=== PATIENT | female | born 2000 | race Caucasian/White ===

== ENCOUNTER 2022-01-23 15:05 | Emergency (ER) | payer OTHER, SELFPAY ==
[2022-01-23 16:00] VITALS: BP 124/73; PULSE 91; RESP 16; TEMP 36.3; O2SAT 100
--- NOTE | 2022-01-23 17:46 | ED.SKABFB ---
HPI - Skin/Abscess/Foreign Bdy General Chief complaint: Skin/Abscess/Foreign Body Stated complaint: abd abcess Time Seen by Provider: 01/23/22 17:22 History of Present Illness HPI narrative: 21-year-old female presents to the emergency room for evaluation of painful area on her right lower abdomen. Patient is a type II diabetic and recently been giving herself insulin injections. Patient states she developed some redness and swelling at the injection site on her abdomen. 3 days ago noticed purulent drainage, and the erythematous area grew in size. Related Data Allergies Allergy/AdvReac Type Severity Reaction Status Date / Time morphine Allergy Hives Verified 01/23/22 16:00 Review of Systems Review of Systems: CONSTITUTIONAL: Denies fever, chills, or sweats. EYES: Denies visual changes, redness, or discharge. ENT: Denies rhinorrhea, congestion, sore throat, or otalgia. CARDIOVASCULAR: Denies chest pain, palpitations, or edema. RESPIRATORY: Denies cough or dyspnea. GASTROINTESTINAL: Denies abdominal pain, nausea, vomiting, or diarrhea. GENITOURINARY: Denies dysuria or hematuria. SKIN: Reports painful area to right lower quadrant MUSCULOSKELETAL: Denies back pain, joint pain, or myalgia. NEUROLOGIC: Denies headache, numbness, dizziness, or weakness. PSYCHIATRIC: Denies anxiety or depression. Exam Narrative: GENERAL: Well-appearing, well-nourished, no physical limitations, and in no acute distress. HEAD: Normocephalic, atraumatic. EYES: Conjunctivae normal, PERRLA and EOMI. CHEST: Clear to auscultation. No respiratory distress. No wheezes rales or rhonchi. No tenderness. HEART: Regular rate and rhythm. No murmur heard. Normal peripheral pulses. ABDOMEN: Soft, nontender, nondistended, normal active bowel sounds. EXTREMITIES: Normal range of motion. No edema. No clubbing or cyanosis SKIN: Warm, dry, no rash. RLQ: Quarter size indurated area with a centralized punctum jordan's and surrounding erythema. No signs of streaking NEURO: No focal deficits. Alert and oriented x3. MAEW. CN's II-XI intact bilaterally, normal gait PSYCH: Cooperative. Normal mood and affect. Course Vital Signs Vital signs: Vital Signs Temperature 36.3 C L 01/23/22 16:00 Pulse Rate 91 01/23/22 16:00 Respiratory Rate 16 01/23/22 16:00 Blood Pressure 124/73 01/23/22 16:00 Pulse Oximetry 100 01/23/22 16:00 Oxygen Delivery Room Air 01/23/22 16:00 Temperature 36.3 C L 01/23/22 16:00 Pulse Rate 91 01/23/22 16:00 Respiratory Rate 16 01/23/22 16:00 Blood Pressure 124/73 01/23/22 16:00 Pulse Oximetry 100 01/23/22 16:00 Oxygen Delivery Room Air 01/23/22 16:00 Discharge Plan Discharge Clinical Impression: Abscess of skin or subcutaneous tissue, Cellulitis Patient Disposition: Home, Self-Care Condition: Stable Instructions: Antibiotic Form, Cellulitis (ED), Abscess (ED) Prescriptions: New cephalexin 500 mg capsule 500 mg PO Q8H 7 Days Qty: 21 0RF Follow-up/Referrals: Arnold Goldsmith MD [Physician] - Time of Disposition: 19:06
== END 2022-01-23 19:22 | disposition home or self-care (01) ==
PROVIDERS: Emergency Provider Nurse Practitioner Family; PCP Physician Assistant
DX: L02.211 Cutaneous abscess of abdominal wall (principal); L03.311 Cellulitis of abdominal wall
CPT/HCPCS: 96365; 99284; J0696

== ENCOUNTER 2022-04-30 13:16 | Emergency (ER) | payer OTHER, SELFPAY ==
[2022-04-30 13:30] VITALS: BP 134/90; PULSE 100; RESP 18; TEMP 36.8; O2SAT 100
--- NOTE | 2022-04-30 13:46 | ED.SKABFB ---
HPI - Skin/Abscess/Foreign Bdy General Chief complaint: Skin/Abscess/Foreign Body Stated complaint: lumps under bilat arms Time Seen by Provider: 04/30/22 13:38 Source: patient and RN notes reviewed Mode of arrival: ambulatory Limitations: no limitations History of Present Illness HPI narrative: 22 years old white female presents with lumps at the axillary area bilaterally started about 1 month ago, had similar symptoms in the groin area few months ago and was told that she have MRSA. Patient denies any fever, chills, nausea, vomiting. Patient is not able to shave in the last few weeks. Related Data Allergies Allergy/AdvReac Type Severity Reaction Status Date / Time morphine Allergy Hives Verified 04/30/22 13:44 Review of Systems Review of Systems: All systems reviewed & are unremarkable except as noted in HPI and below Exam Narrative: General appearance: Well-developed, well-nourished Skin: Few scattered pimples like lesion at the axillary area bilaterally, no fluctuation, no hardening, no discharge, no erythema Head: Normocephalic, nontraumatic Neck: Supple, nontender Chest and respiratory: Airway patent, no respiratory distress, no accessory muscle use Heart: Regular rate/rhythm Abdomen: Soft, nontender, no organomegaly, quiet bowel sounds Vascular: Normal peripheral pulses, normal capillary refill. Musculoskeletal: Normal range of motion, nontender back Neurologic: Alert and oriented ?3, Course Course Emergency Course: Folliculitis versus hidradenitis suppurativa is my concern Vital Signs Vital signs: Vital Signs Temperature 36.8 C 04/30/22 13:30 Pulse Rate 100 04/30/22 13:30 Respiratory Rate 18 04/30/22 13:30 Blood Pressure 134/90 04/30/22 13:30 Pulse Oximetry 100 04/30/22 13:30 Oxygen Delivery Room Air 04/30/22 13:30 Temperature 36.8 C 04/30/22 13:30 Pulse Rate 100 04/30/22 13:30 Respiratory Rate 18 04/30/22 13:30 Blood Pressure 134/90 04/30/22 13:30 Pulse Oximetry 100 04/30/22 13:30 Oxygen Delivery Room Air 04/30/22 13:30 MDM - Skin/Abscess/Foreign Bdy Differential Diagnosis Differential diagnosis: Likely other (Hidradenitis suppurativa, folliculitis) Critical Care Time Critical Care Time Critical Care Time: No Discharge Plan Discharge Clinical Impression: Axillary hidradenitis suppurativa Patient Disposition: Home, Self-Care Condition: Stable Instructions: Antibiotic Form, Hidradenitis Suppurativa (ED) Additional Instructions: Return if symptoms are worsening , call your family physician for appointment, take Tylenol as as needed for aches and pain, continue home medications. Prescriptions: New clindamycin HCl 300 mg capsule 300 mg PO Q6H Qty: 40 0RF No Action cephalexin 500 mg capsule 500 mg PO Q8H 7 Days Qty: 21 0RF Follow-up/Referrals: Sharyn,DOMINGUEZ Camacho [Non-Staff] - Stand Alone Forms: Work/School Release IP
== END 2022-04-30 15:20 | disposition home or self-care (01) ==
LOC: ANHED 14:04
PROVIDERS: Emergency Provider Emergency Medicine
DX: L73.2 Hidradenitis suppurativa (principal)
CPT/HCPCS: 99283

== ENCOUNTER 2022-07-18 09:35 | Emergency (ER) | payer OTHER, SELFPAY ==
[2022-07-18 09:54] VITALS: BP 122/70; PULSE 87; RESP 18; TEMP 36.6; O2SAT 97
--- NOTE | 2022-07-18 10:00 | ED.RECABL ---
HPI - Recheck/Abnormal Lab/Rx General Chief Complaint: Recheck/Abnormal Lab/Rx Stated Complaint: ?ELEVATED BLOOD SUGAR, FEELS SHAKEY HX DMII Time Seen by Provider: 07/18/22 09:53 History of Present Illness HPI narrative: 22 year old female with a history of insulin dependent diabetes here for evaluation of lightheadedness today. She states that she took her blood sugar this morning is 190. She did not have time to give herself her usual dose of insulin which is 10 units of normal. Patient states that in the past when her blood sugar is elevated she has felt lightheaded as she does currently. Also reports some nausea and diarrhea but no vomiting, abdominal pain, fevers, chills, chest pain, shortness of breath. Related Data Allergies Allergy/AdvReac Type Severity Reaction Status Date / Time morphine Allergy Hives Verified 07/18/22 10:23 Review of Systems Review of Systems: Gen.: Reports lightheadedness Eyes: Denies eye pain or visual change ENT: Denies congestion Respiratory: Denies shortness of breath or cough CV: Denies chest pain or palpitations GI: Denies abdominal pain nausea, emesis or diarrhea denies burning, urgency, frequency or hematuria Musculoskeletal: Denies back pain or muscle pain Neuro: Denies numbness, tingling, weakness or focal weakness Skin: Denies rash Except as documented, all other systems reviewed and negative Exam Narrative: APPEARANCE: Well appearing, no pain in distress, well-nourished. Head: Normocephalic and atraumatic. EYES: PERRLA/EOMI, conjunctivae clear NOSE: No nasal drainage EARS: External ear normal in appearance THROAT: Oropharynx is clear. Mucous membranes are moist. NECK: Supple. No adenopathy, no masses. RESPIRATORY: Airway patent, respirations nonlabored. Clear to auscultation bilaterally, no rales, rhonchi, wheezing. CARDIOVASCULAR: Regular rate and rhythm without murmurs, rubs, or gallops. ABDOMINAL: Normoactive bowel sounds. Soft, nontender, nondistended. No rebound tenderness or guarding. MUSCULOSKELETAL: Extremities are warm and well-perfused. Moves all extremities well. No edema. NEURO: Normal speech. No focal neurologic deficits. SKIN: Skin is warm and dry. No rashes. PSYCHIATRIC: Normal affect/mood.. Course Vital Signs Vital signs: Vital Signs Temperature 98 F 07/18/22 09:54 Pulse Rate 87 07/18/22 09:54 Respiratory Rate 18 07/18/22 09:54 Blood Pressure 122/70 07/18/22 09:54 Pulse Oximetry 97 07/18/22 09:54 Oxygen Delivery Room Air 07/18/22 09:54 Temperature 98 F 07/18/22 09:54 Pulse Rate 87 07/18/22 09:54 Respiratory Rate 18 07/18/22 09:54 Blood Pressure 122/70 07/18/22 09:54 Pulse Oximetry 97 07/18/22 09:54 Oxygen Delivery Room Air 07/18/22 09:54 MDM - Recheck/Abnormal Lab/Rx MDM Narrative Medical decision making narrative: 22-year-old female with a history of insulin-dependent type 2 diabetes here for evaluation of elevated blood sugar at home today and feeling shaky. Patient is nontoxic in appearance and has normal vital signs, no respiratory distress. [id number] blood sugar is 328. Anion gap and bicarb are normal. She has no ketones in her urine. Her beta hydroxybutyrate is negative. No signs of DKA or HHS. Patient was given fluids and 10 units of insulin. Feeling improved. She will be discharged home to follow-up with her primary care doctor, encouraged use of insulin as prescribed. Return precautions were discussed and she voiced understanding. Lab Data 07/18/22 10:24 07/18/22 10:24 Labs: Lab Results 07/18/22 07/18/22 07/18/22 Range/Units 10:06 10:24 10:24 WBC 9.5 (4.5-10.0) K/mm3 RBC 5.11 (4.2-5.4) M/mm3 Hgb 13.9 (12.0-15.0) g/dL Hct 41.4 (37.0-47.0) % MCV 81.0 (80-100) fl MCH 27.2 (26-34) pg MCHC 33.6 (32-36) g/dl RDW 13.2 (11.5-14.5) % Plt Count 277 (150-375) k/mm3 MPV 11.4 H (7.4-10.4) fl Immature Gran % (A
[2022-07-18 10:12] LABS: Glucose Point of Care 389 mg/dl (65-105)
[2022-07-18 10:44] LABS: Beta-Hydroxybutyrate/Acetoacetate 0.14 mmol/L (0.02-0.27)
[2022-07-18 10:45] LABS: Alanine Aminotransferase 27 U/L (6-35); Albumin Level 4.1 g/dL (3.5-5.1); Alkaline Phosphatase 80 U/L (38-126); Anion Gap 10 mmol/L (8-16); Aspartate Amino Transferase 26 U/L (14-36); Bilirubin,Total 0.5 mg/dL (0.2-1.3); Blood Urea Nitrogen 15 mg/dL (7-17); Calcium 8.7 mg/dL (8.4-10.2); Carbon Dioxide 24 mmol/L (22-30); Chloride 102 mmol/L (98-107); Estimated CRCL calculation 159 ml/min; Estimated Glomerular Filt Rate > 60; Glucose 371 mg/dL (65-110); Potassium 4.3 mmol/L (3.4-5.0); Sodium 136 mmol/L (137-145)
[2022-07-18 10:47] LABS: Basophils Absolute Auto 0.1 K/mm3 (0.0-0.1); Basophils Percent Auto 0.5 % (0.2-1.2); Eosinophils Absolute Auto 0.2 K/mm3 (0-0.3); Eosinophils Percent Auto 1.8 % (0-4.4); Hematocrit 41.4 % (37.0-47.0); Hemoglobin 13.9 g/dL (12.0-15.0); Immature Granulocyte Absolute 0.03 K/mm3 (0.00-0.031); Immature Granulocyte Percent A 0.3 % (0-0.5); Lymphocytes Absolute Auto 1.88 K/mm3 (0.9-3.2); Lymphocytes Percent Auto 19.8 % (18.3-44.2); Mean Corpuscular HGB Conc 33.6 g/dl (32-36); Mean Corpuscular Hemoglobin 27.2 pg (26-34); Mean Platelet Volume 11.4 fl (7.4-10.4); Monocytes Absolute Auto 0.6 K/mm3 (0.1-0.6); Monocytes Percent Auto 5.9 % (2.6-8.5); Neutrophils Absolute Auto 6.8 K/mm3 (1.3-6.7); Neutrophils Percent Auto 71.7 % (45.5-73.1); Platelet Count Result 277 k/mm3 (150-375); Red Blood Count 5.11 M/mm3 (4.2-5.4); Red Cell Distribution Width 13.2 % (11.5-14.5); White Blood Count 9.5 K/mm3 (4.5-10.0)
[2022-07-18] MEDS: SODIUM CHLORIDE 0.9% IV 1,000 ML 999 ML IV CONT (10:53)
[2022-07-18 11:02] LABS: Appearance Urine Slightly Cloudy (Clear); Bilirubin Urine Negative (Negative); Blood Urine Negative (Negative); Color Urine Yellow (Yellow); Glucose Urine UA 3+ mg/dL (Negative); Ketones Urine Negative (Negative); Leukocyte Esterase Ur Negative LEU/UL (Negative); Nitrate Urine Negative (Negative); Protein Urine Negative (Negative); Urobilinogen Urine 0.2 mg/dL (<2.0)
[2022-07-18 11:10] LABS: Mucus Urine Rare /lpf; Squamous Epithelial Cell Urine Moderate /hpf (Few); WBC Urine 21-30 /hpf
[2022-07-18 11:11] LABS: Add Urine Microscopic? YES
[2022-07-18 11:45] LABS: Glucose Point of Care 328 mg/dl (65-105)
[2022-07-18] MEDS: INSULIN HUMAN REGULAR (*BKC) 100 UNITS/ML 10 UNITS SUB-Q (11:46)
[2022-07-18 12:50] VITALS: BP 114/78; PULSE 83; RESP 18; O2SAT 100
[2022-07-18 12:52] LABS: Glucose Point of Care 277 mg/dl (65-105)
== END 2022-07-18 12:55 | disposition home or self-care (01) ==
PROVIDERS: Emergency Provider Physician Assistant
DX: E11.65 Type 2 diabetes mellitus with hyperglycemia (principal); Z79.4 Long term (current) use of insulin
CPT/HCPCS: 36415; 80053; 81001; 81025; 82010; 82948; 85025; 87086; 87088; 96360; 99283; J1815; J7030

== ENCOUNTER 2023-03-05 13:11 | Inpatient (IN) | payer OTHER, SELFPAY ==
--- NOTE | ~2023-03-05 | CT_ITS ---
EXAMINATION: CT abdomen pelvis w con DATE: 03/05/2023 17:15 INDICATION: right flank pain, UTI TECHNIQUE: Computed tomography (CT) of the abdomen and pelvis was performed with 100 mL Omnipaque-350 intravenous contrast. Automated exposure control and iterative reconstruction technique were employe d. The dose-length product was 677.47 mGy-cm. COMPARISON: None. FINDINGS: Lower thorax: Dependent atelectasis Liver: Enlarged, fatty infiltrated. Biliary/Gallbladder: Gallbladder is partially contracted. No bile duct dilation. Pancreas: No mass or duct dilation. Spleen: Normal. Adrenals:No mass. Kidneys: Focal area of hypoenhancement in the right upper pole immediately adjacent to a 1.7 cm fluid collection which extends beyond the cortex and is surrounded by moderate inflammatory change. 1.7 cm cortical hypodensity which extends to the cortex and is surrounded by mild inflammatory change in th e left upper pole. No obstructive calcification. No hydronephrosis.. GI tract: No small or large bowel dilation. Normal appendix. Mesentery/Peritoneum: No ascites, mass, or free air. Retroperitoneum: No mass. Pelvis: Mild bladder wall thickening in a distended urinary bladder. 3.1 cm simple right ovarian cyst . Soft Tissues: Soft tissues and body wall unremarkable. Bones: No acute osseous finding. Bilateral pars defects at L3 IMPRESSION: Acute focal nephritis involving the right upper kidney pole, with a 1.7 cm adjacent renal abscess. Likely developing/early 1.7 cm left upper pole abscess. Cystitis. Reviewed, dictated and finalized at location K. IMPRESSION: Acute focal nephritis involving the right upper kidney pole, with a 1.7 cm caio cent renal abscess. Likely developing/early 1.7 cm left upper pole abscess. Cystitis.
--- NOTE | ~2023-03-05 | CT_ITS ---
CT of the Abdomen and Pelvis: Indication: Renal abscess Technique: 2.5 mm axial scans were obtained through the abdomen and pelvis following intravenous adm inistration of 100 cc of Omnipaque 350. Dose reduction technique was used on this scan by utilizing a utomated exposure control and iterative reconstruction technique. The dose-length product (DLP) was 6 93.84 mGy-cm. COMPARISON: 03/09/2023, 03/05/2023 Findings: Scans through the lung bases demonstrate minimal bibasilar atelectatic change. The liver, spleen, pancreas, gallbladder, and adrenal glands are within normal limits. Right renal ab scess appears minimally decreased from prior exam. Probable left upper pole renal abscess is essentia lly stable from prior exam. No evidence of aortic aneurysm. No lymphadenopathy. No bowel obstruction or bowel wall thickening. There is no evidence to suggest acute appendicitis. Images through the pelvis were performed. Urinary bladder grossly unremarkable, collapse. 2.9 cm righ t ovarian cyst present. No ascites. Impression: Right renal abscess is probably minimally decreased from prior exam. Suspected left upper pole renal abscess is essentially stable. Small right ovarian cyst. Reviewed, dictated and finalized at location . Impression: Right renal abscess is probably minimally decreased from prior exam. Suspected left upper pole renal abscess is essentially stable. Small right ovarian cyst.
--- NOTE | ~2023-03-05 | US_ITS ---
EXAMINATION: US pelvic complete w TV DATE: 03/05/2023 15:47 INDICATION: ovarian cyst TECHNIQUE: Multiple transabdominal and endovaginal sonographic images of the pelvis were obtained. COMPARISON: None. FINDINGS: Uterus: 6.7 x 4.1 x 3.8 cm. Endometrial complex measures 6 mm. Right Ovary: 4.4 x 2.6 x 2.7 cm. Vascular flow is present. 3.4 cm simple cyst Left Ovary: 2.8 x 1.6 x 1.3 cm. Vascular flow is present. No adnexal mass There is trace free fluid in the pelvis, within physiologic range. IMPRESSION: Normal pelvic sonogram findings. 3.4 cm simple right ovarian cyst, a benign finding in the physiologic range, no follow-up recommended . Reviewed, dictated and finalized at location K. IMPRESSION: Normal pelvic sonogram findings. 3.4 cm simple right ovarian cyst, a benign finding in the physiologic range, no follow-up recommended.
--- NOTE | ~2023-03-05 | CT_ITS ---
Non-contrast CT scan of the Abdomen and Pelvis Clinical indication: Renal abscess Technique: 2.5 mm axial scans were obtained through the abdomen and pelvis without intravenous or or al contrast. Dose reduction technique was used on this scan by utilizing automated exposure control a nd iterative reconstruction technique. The dose-length product (DLP) was 868.93 mGy-cm. COMPARISON: 03/05/2023 Findings: Images through the lung bases reveal minimal right pleural effusion and minimal bibasilar atelectatic change. No hydronephrosis or renal stone evident. The probable bilateral renal abscesses seen on prior exam a re poorly delineated on noncontrast exam. It is difficult to assess for interval change. No gross enl argement of abscess identified. Diffuse fatty infiltration of liver noted. The spleen, pancreas, gallbladder, and adrenals appear nor mal. There is no aortic aneurysm. There is no evidence of bowel obstruction. Images through the pelvis were performed. There is no evidence of ascites or lymphadenopathy. 3 cm ri ght adnexal cyst present. No other adnexal mass seen. Urinary bladder wall thickening may be due to u nderdistention. Impression: Assessment of the bilateral renal abscesses seen on prior exam is very limited on noncontrast exam. N o gross enlargement of abscess identified, but delineation of the abscesses is inadequate on this non contrast exam. Mild urinary bladder wall thickening. Correlate for cystitis versus underdistention. Probable diffuse fatty infiltration of liver. 3 cm right adnexal cyst. Reviewed, dictated and finalized at [facility]. Impression: Assessment of the bilateral renal abscesses seen on prior exam is very limited on noncontrast exam. No gross enlargement of abscess identified, but delineatio n of the abscesses is inadequate on this noncontrast exam. Mild urinary bladder wall thickening. Correlate for cystitis versus underdisten tion. Probable diffuse fatty infiltration of liver. 3 cm right adnexal cyst.
[2023-03-05 13:12] VITALS: BP 139/76; PULSE 99; RESP 16; TEMP 36.6; O2SAT 99
[2023-03-05 14:07] LABS: Basophils Absolute Auto 0.1 K/mm3 (0.0-0.1); Basophils Percent Auto 0.4 % (0.2-1.2); Eosinophils Absolute Auto 0.1 K/mm3 (0-0.3); Eosinophils Percent Auto 0.7 % (0-4.4); Hematocrit 38.1 % (37.0-47.0); Hemoglobin 12.6 g/dL (12.0-15.0); Immature Granulocyte Absolute 0.08 K/mm3 (0.00-0.031); Immature Granulocyte Percent A 0.6 % (0-0.5); Lymphocytes Absolute Auto 1.54 K/mm3 (0.9-3.2); Lymphocytes Percent Auto 11.3 % (18.3-44.2); Mean Corpuscular HGB Conc 33.1 g/dl (32-36); Mean Corpuscular Volume 81.8 fl (80-100); Mean Platelet Volume 11.4 fl (7.4-10.4); Monocytes Absolute Auto 1.1 K/mm3 (0.1-0.6); Monocytes Percent Auto 7.7 % (2.6-8.5); Neutrophils Absolute Auto 10.8 K/mm3 (1.3-6.7); Neutrophils Percent Auto 79.3 % (45.5-73.1); Platelet Count Result 353 k/mm3 (150-375); Red Blood Count 4.66 M/mm3 (4.2-5.4); Red Cell Distribution Width 12.6 % (11.5-14.5); White Blood Count 13.6 K/mm3 (4.5-10.0)
[2023-03-05 14:21] LABS: Alanine Aminotransferase 30 U/L (6-35); Alkaline Phosphatase 73 U/L (38-126); Anion Gap 10 mmol/L (8-16); Aspartate Amino Transferase 33 U/L (14-36); Bilirubin,Total 0.7 mg/dL (0.2-1.3); Blood Urea Nitrogen 8 mg/dL (7-17); Calcium 8.6 mg/dL (8.4-10.2); Carbon Dioxide 23 mmol/L (22-30); Chloride 96 mmol/L (98-107); Estimated CRCL calculation 154 ml/min; Estimated Glomerular Filt Rate > 60; Glucose 556 mg/dL (65-110); Sodium 129 mmol/L (137-145)
--- NOTE | 2023-03-05 14:35 | ED.BACK ---
HPI - Back Pain/Injury General Chief Complaint: Back Pain/Injury Stated Complaint: right lower back pain Time Seen by Provider: 03/05/23 14:22 Source: patient and RN notes reviewed Mode of arrival: ambulatory Limitations: no limitations History of Present Illness HPI Narrative: This is a 22 year old female with history of insulin dependent diabetes who presents for evaluation of right flank pain. Patient states she has had right flank pain for 2 days. She was evaluated [facility] for her symptoms. She had a CT abdomen and pelvis that showed an ovarian cyst. She was prescribed medication for her pain but she states her pain is getting worse. She reports having fever, nausea and vomiting yesterday. She also reports diarrhea. She denies urinary symptoms or abdominal. She is poorly controlled diabetic. Related Data Allergies Allergy/AdvReac Type Severity Reaction Status Date / Time morphine Allergy Hives Verified 03/05/23 13:55 Review of Systems Constitutional: Constitutional: Reports fever(s) and Denies weakness Cardiovascular: Cardiovascular: Denies syncope, Denies rapid heart rate, Denies irregular heart rhythm, Denies leg edema and Denies dyspnea Respiratory: Respiratory: Denies chest congestion, Denies hemoptysis, Denies excessive phlegm production and Denies dyspnea Gastrointestinal: Gastrointestinal: Denies abdominal pain, Denies hematochezia, Reports diarrhea, Reports nausea and Reports vomiting Genitourinary: Genitourinary: Denies hematuria, Denies dysuria and Reports flank pain Musculoskeletal: Musculoskeletal: Denies joint swelling, Denies loss of height and Denies muscle weakness Neurologic: Denies syncope, Denies focal weakness and Denies weakness PMFSH Past Medical History Medical History (Updated 03/05/23 @ 19:31 by Kelsy Jane MD) IDDM (insulin dependent diabetes mellitus) Surgical History Surgical History (Updated 03/05/23 @ 14:37 by Kelsy Jane MD) No pertinent past surgical history Social History Social History (Updated 03/05/23 @ 19:20 by Kelsy Jane MD) Smoking status: Never smoker Exam Const: General: no acute distress and alert Nutritional Appearance: well nourished Orientation/consciousness: patient oriented x3 HENMT: Head: normal to inspection Mouth: Yes Normal oral and palatal mucosa present, Yes lip normal and Yes moist mucous membranes Throat: posterior oropharynx normal and uvula midline Eyes: EOM: EOMs intact bilaterally Neck: Neck: normal visual inspection Chest: Chest palpation & inspection: normal inspection of the chest Resp: Effort & Inspection: normal respiratory effort Auscultation: clear to auscultation bilaterally Cardio: Rate: regular rate Rhythm: regular rhythm Heart sounds: no murmurs GI: GI Palp: Yes Soft to palpation, No Tenderness to palpation present (GI), No Guarding due to palpation present (GI) and No Rigid due to palpation Auscultation: normal bowel sounds : General: Yes no CVA tenderness Back/Spine/Pelvis: Back: no CVA tenderness Skin: General skin exam: normal color Rashes: no rashes Neuro: General: patient oriented x3, moves all extremities and CN's II-XI intact bilaterally Psych: Mental Status: mental status grossly normal Affect: normal affect Attitude: cooperative Course Reevaluation(s) Reevaluation #1: I Discussed with patient that she was found to have abscess of his kidneys and she will need to be admitted. She denies any other complaints. Date: 03/05/23 Time: 17:30 Consultations Consultation #1: I Spoke with Dr. Matthews of urology about patient and finding. He states patient will need admission. Agrees with dustin. They will see patient tomorrow as consult. Likely abscess too small to drain at this time. She will need CT in a few days Date: 03/05/23 Time: 17:40 Consultation #2: I Spoke with Crista with hospitalist who accepts to medical floor. I Discussed labs and CT. PAtient at this time does
[2023-03-05 14:45] LABS: Appearance Urine Cloudy (Clear); Bacteria Urine 4+ /hpf; Bilirubin Urine Negative (Negative); Blood Urine 3+ (Negative); Color Urine Yellow (Yellow); Glucose Urine UA 3+ mg/dL (Negative); Ketones Urine 1+ mg/dL (Negative); Leukocyte Esterase Ur 1+ LEU/UL (Negative); Need Manual Microscopic Reviewed; Nitrate Urine Positive (Negative); Non Pathogenic Casts 0-2; Protein Urine Negative (Negative); RBC Urine 0-2 /hpf (0-2); Squamous Epithelial Cell Urine Many /hpf (Few); Urobilinogen Urine 0.2 mg/dL (<2.0); WBC Urine 51-100 /hpf
[2023-03-05] MEDS: SODIUM CHLORIDE 0.9% IV 1,000 ML 999 ML IV CONT ×2 (14:48→14:49)
[2023-03-05] MEDS: ONDANSETRON INJ 4 MG/2 ML VIAL IV PUSH (14:49)
[2023-03-05] MEDS: PANTOPRAZOLE SODIUM IV 40 MG VIAL IV PUSH (14:49)
[2023-03-05] MEDS: KETOROLAC 30 MG/ML VIAL (*BKC) IV PUSH (14:49)
[2023-03-05] MEDS: INSULIN HUMAN REGULAR (*BKC) 100 UNITS/ML 10 UNITS SUB-Q (14:49)
[2023-03-05 14:52] LABS: Specific Grav Ur 1.044 (1.001-1.035)
[2023-03-05 14:56] LABS: Add Urine Microscopic? YES
[2023-03-05 15:48] VITALS: BP 123/76; PULSE 84; RESP 18; O2SAT 99
[2023-03-05 15:59] LABS: Lactic Acid Reflex 1.7 mmol/L (0.7-2.0)
[2023-03-05 16:22] LABS: Glucose Point of Care 363 mg/dl (65-105)
[2023-03-05 16:30] VITALS: BP 128/83; PULSE 77; RESP 18; O2SAT 99
[2023-03-05 16:52] VITALS: BP 123/83; PULSE 72; RESP 18; O2SAT 99
[2023-03-05 17:12] VITALS: BP 150/93; PULSE 76; RESP 18; O2SAT 97
[2023-03-05 20:09] LABS: Glucose Point of Care 280 mg/dl (65-105)
[2023-03-05 20:13] VITALS: BP 128/81; PULSE 86; RESP 18; TEMP 36.6; O2SAT 100; BMI 32.3
[2023-03-05] MEDS: SODIUM CHLORIDE 0.9% IV 1,000 ML 125 ML IV CONT (21:06)
[2023-03-05] MEDS: INSULIN ASPART (*BKC) 100 UNITS/ML SUB-Q (21:06)
[2023-03-05 21:20] VITALS: BMI 32.3
--- NOTE | 2023-03-05 21:25 | ADMGEN ---
This patient, Lori Landeros, was admitted to [address] [place] [address] Room 310-01 at 1945. Patient/family oriented to hospital policies and general routines including ID bracelet, bed and alarms, visiting hours, pain management, procedures, bathroom and other care routines, personal items, smoking policy, room service/diet, and visiting hours. Information on how to activate the Rapid Response Team has been discussed. Patient/Family are encouraged to report perceived risks to care and to ask questions if they do not understand what they are told or what they should do.
--- NOTE | 2023-03-05 21:39 | PM.IMHP ---
H&P: HPI History of Present Illness Date/Time: 03/05/23 21:39 Chief Complaint: Right abdominal and back pain Narrative: 22-year-old female with a past medical history of frequent UTI's, bipolar disorder, type 2 diabetes mellitus on insulin therapy chronically uncontrolled with neuropathy who presented to the ER with right-sided abdominal pain and right back pain. The patient reports that she started having right lower abdominal pain that radiated up to her right flank. She was evaluated at [facility] couple of days ago and they told her that she had a right ovarian cyst that was acting up when she had a CT scan. She reports that she has had associated increased urinary frequency and urgency for 4 days. She does practice post coital voiding. She spiked a fever to 102? 3 days ago. She reports her pain is sharp in twisting in nature. It was 10/10 intensity at home. It is improved down to a 4/10 in intensity currently. She denies any hematuria. Her CT in the ER demonstrated acute focal nephritis of the right kidney pole with 1.7 cm adjacent renal abscess and likely developing early 1.7 cm left upper pole abscess as well. She has been having 3 loose stools a day for 3 days but her last bowel movement was over 24 hours ago. Her bowel movements have been watery and brown in color. She has had associated nausea and vomiting a couple times a day for the last couple of days. She has had decreased oral intake. She denies any difficulty swallowing. She takes Levemir 10 units b.i.d.. She reports that she has had type 2 diabetes since she was 16 years old. She has never had will controlled glucoses. On presentation the your her glucoses were greater than 500. She reports feeling dehydrated. She does endorse right CVA tenderness on exam. She reports that her weight is been relatively stable. She denies a history of snoring. She has been told that she stops breathing at night. She has not had a sleep study. Review of Systems Review of Systems: 12 systems were reviewed with pertinent positives and negatives per HPI. Except as documented in the HPI, all other systems were reviewed and are negative. [facility] Past Medical History Medical History (Updated 03/06/23 @ 05:19 by Fátmia Anne DO) ADHD (attention deficit hyperactivity disorder) Bipolar disorder Diabetic peripheral neuropathy ROSIE (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) Surgical History Surgical History No pertinent past surgical history Family History Family History (Updated 03/06/23 @ 05:06 by Fátima Anne DO) Father Bipolar disorder Schizophrenia Heart failure Mother Age: 35 Schizophrenia Diabetes mellitus Hypertension Bipolar disorder COPD (chronic obstructive pulmonary disease) Chronic kidney disease Social History Social History (Updated 03/06/23 @ 05:08 by Fátima Anne DO) Social History: She has been involved with her boyfriend for the last 2 years. She has lived with her boyfriend and his family for the last year. 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 She reports that she drinks 5-6 alcoholic beverages every couple of months. Code status: Full code Smoking status: Never smoker Alcohol intake: current Drinks per week: 3 Substance use: former Substance use type: marijuana Last use: 2019 Lack of Transportation: No Lack of Food: Never True Current Housing: I Have Housing Concerned About Future Housing: No Difficulty Paying Gas/Electric Bills: No Difficulty Paying for Meds: No Currently Unemployed: No Education: High School Diploma/GED Difficulty w/ Childcare or Family Care: No Spiritual care concerns: No Meds Home Medications and Allergies Home Medications Medication Instructions Recorded Confirmed Type aripiprazole 10 mg tablet 10 mg PO DAILY 03/05/23 03/05/23 History clonidine HCl 0.2 mg tablet 0
[2023-03-05 23:13] LABS: Glucose Point of Care 180 mg/dl (65-105)
[2023-03-06 00:24] LABS: Glucose Point of Care 185 mg/dl (65-105)
[2023-03-06] MEDS: KETOROLAC 30 MG/ML VIAL (*BKC) IV PUSH (00:34)
[2023-03-06] MEDS: SODIUM CHLORIDE 0.9% IV 1,000 ML 125 ML IV CONT ×3 (05:00→20:56)
[2023-03-06 05:20] VITALS: BP 102/67; PULSE 77; RESP 16; TEMP 36.5; O2SAT 100
[2023-03-06 05:22] LABS: Glucose Point of Care 172 mg/dl (65-105)
[2023-03-06 06:50] LABS: Basophils Percent Auto 0.4 % (0.2-1.2); Eosinophils Absolute Auto 0.2 K/mm3 (0-0.3); Eosinophils Percent Auto 2.8 % (0-4.4); Hematocrit 34.4 % (37.0-47.0); Hemoglobin 11.3 g/dL (12.0-15.0); Immature Granulocyte Absolute 0.05 K/mm3 (0.00-0.031); Immature Granulocyte Percent A 0.6 % (0-0.5); Lymphocytes Absolute Auto 1.78 K/mm3 (0.9-3.2); Lymphocytes Percent Auto 21.8 % (18.3-44.2); Mean Corpuscular HGB Conc 32.8 g/dl (32-36); Mean Corpuscular Hemoglobin 27.2 pg (26-34); Mean Corpuscular Volume 82.7 fl (80-100); Mean Platelet Volume 11.1 fl (7.4-10.4); Monocytes Absolute Auto 0.7 K/mm3 (0.1-0.6); Monocytes Percent Auto 8.7 % (2.6-8.5); Neutrophils Absolute Auto 5.4 K/mm3 (1.3-6.7); Neutrophils Percent Auto 65.7 % (45.5-73.1); Platelet Count Result 309 k/mm3 (150-375); Red Blood Count 4.16 M/mm3 (4.2-5.4); Red Cell Distribution Width 12.7 % (11.5-14.5); White Blood Count 8.2 K/mm3 (4.5-10.0)
[2023-03-06 06:57] LABS: Alanine Aminotransferase 23 U/L (6-35); Albumin Level 3.2 g/dL (3.5-5.1); Alkaline Phosphatase 56 U/L (38-126); Anion Gap 7 mmol/L (8-16); Aspartate Amino Transferase 27 U/L (14-36); Bilirubin,Total 0.4 mg/dL (0.2-1.3); Blood Urea Nitrogen 5 mg/dL (7-17); Calcium 7.8 mg/dL (8.4-10.2); Carbon Dioxide 23 mmol/L (22-30); Chloride 106 mmol/L (98-107); Estimated CRCL calculation 189 ml/min; Estimated Glomerular Filt Rate > 60; Glucose 177 mg/dL (65-110); Potassium 3.5 mmol/L (3.4-5.0); Sodium 136 mmol/L (137-145)
--- NOTE | 2023-03-06 07:43 | WPDURCON ---
Assessment and Plan Assessment and plan (1) Abscess of right kidney: Code(s): N15.1 - Renal and perinephric abscess Status: Acute (2) Abscess of left kidney: Code(s): N15.1 - Renal and perinephric abscess Status: Acute (3) Pyelonephritis: Code(s): N12 - Tubulo-interstitial nephritis, not specified as acute or chronic Status: Acute Plan Continue broad-spectrum antibiotics. Would get Infectious Disease input concerning duration of antibiotics. Needs tight blood sugar control. Reimage if not clinically improving. If abscess growing or changes would need to consult Interventional Radiology for drainage. If she is clinically improving continue complete course of antibiotics and reimage in 3 months to document resolution. We will follow only peripherally unless she develops active urologic issues. Please call with questions Urology Consult Note HPI Date Seen: 03/06/23 Requesting Physician: Shena Mon MD Primary Care Provider: PHYSICIAN NOT ON STAFF Consult Narrative Narrative: Lori Landeros is a 22 year old female who is a poorly-controlled diabetic. She is on insulin. She states 3 days ago she had a fever at home. She had no voiding symptoms. No dysuria. No hematuria. She did have right flank pain. She endorsed nausea. She has a CT scan which shows pyelonephritis and a developing probable right side abscess and possible left-sided abscess as well. Both measuring over a cm. He is admitted for antibiotics. Her blood sugars are chronically elevated with an elevated A1c she is being treated for that here as well. She states she is improving clinically without fevers. Again she has no voiding symptoms suggestive of urinary tract infection, but does have a urinalysis suspicious for UTI. Perhaps symptoms of urinary tract infections are being masked by her diabetic neuropathy. Urine and blood cultures are pending Review of Systems Review of Systems: All systems reviewed & are unremarkable except as noted in HPI and below PMFSH Past Medical History Medical History ADHD (attention deficit hyperactivity disorder) Bipolar disorder Diabetic peripheral neuropathy ROSIE (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) Surgical History Surgical History No pertinent past surgical history Family History Family History Father Bipolar disorder Schizophrenia Heart failure Mother Age: 35 Schizophrenia Diabetes mellitus Hypertension Bipolar disorder COPD (chronic obstructive pulmonary disease) Chronic kidney disease Social History Social History Social History: She has been involved with her boyfriend for the last 2 years. She has lived with her boyfriend and his family for the last year. 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 She reports that she drinks 5-6 alcoholic beverages every couple of months. Code status: Full code Smoking status: Never smoker Alcohol intake: current Drinks per week: 3 Substance use: former Substance use type: marijuana Last use: 2019 Lack of Transportation: No Lack of Food: Never True Current Housing: I Have Housing Concerned About Future Housing: No Difficulty Paying Gas/Electric Bills: No Difficulty Paying for Meds: No Currently Unemployed: No Education: High School Diploma/GED Difficulty w/ Childcare or Family Care: No Spiritual care concerns: No Meds Home Medications and Allergies Home Medications Medication Instructions Recorded Confirmed Type aripiprazole 10 mg tablet 10 mg PO DAILY 03/05/23 03/05/23 History clonidine HCl 0.2 mg tablet 0.2 mg PO HS 03/05/23 03/05/23 History dextroamphetamine-amphetamine ER 20 mg PO DAILY 03/05/23 03/05/23
[2023-03-06 07:47] LABS: Glucose Point of Care 182 mg/dl (65-105)
[2023-03-06] MEDS: cefTRIAXone 2 GM/NS 100 ML 2 GM/100 ML BAG IVPB (08:53)
[2023-03-06] MEDS: ARIPiprazole 10 MG TABLET PO (08:55)
[2023-03-06] MEDS: FAMOTIDINE 20 MG TABLET PO ×2 (08:55→20:56)
[2023-03-06] MEDS: GABAPENTIN 100 MG CAPSULE PO ×3 (08:55→18:12)
[2023-03-06] MEDS: INSULIN ASPART (*BKC) 100 UNITS/ML SUB-Q ×5 (08:55→18:13)
--- NOTE | 2023-03-06 10:12 | PM.IMPN ---
Progress Note: A&P Assessment and Plan (1) Nephritis due to bacterial infection: Code(s): N12 - Tubulo-interstitial nephritis, not specified as acute or chronic; B96.89 - Other specified bacterial agents as the cause of diseases classified elsewhere Status: Acute Assessment and Plan: Patient presents to the ED for right sided abdominal and back pain. UA consistent with UTI except many squamous epithelial cells. Urine nd Blood cultures collected. No old positive cultures to review. CT Abd/Pelvis showing acute focal nephritis involvinig the right upper kidney pole with adjacent 1.7cm renal abscess. Likely developing abscess of 1.7cm left upper pole of kidney. Patient not septic. Rocephin started. Will advance to higher dose of Rocephin. Follow up on blood cultures. Plan for repeat imaging Urology consulted and appreciate their input. (2) Abscess of right kidney: Code(s): N15.1 - Renal and perinephric abscess Status: Acute Assessment and Plan: As above. (3) Abscess of left kidney: Code(s): N15.1 - Renal and perinephric abscess Status: Acute Assessment and Plan: As above (4) ROSIE (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): Code(s): E13.9 - Other specified diabetes mellitus without complications Status: Acute Assessment and Plan: A1c 10. Patient does have type 2 diabetes mellitus with complications including neuropathy. Glucose 556 on admission. Glucoses are chronically uncontrolled at home. The patient does not check her Accu-Cheks. She does not use sliding scale insulin. Patient's glucoses have improved significantly after receiving 2 L of IV fluids in the ER and 10 units of subq NovoLog in the ER. ems educator was consulted and discussed with them. Meal time Novolog added. Will add lantus tonight. The patient's blood glucose was reviewed on 03/06 Glucose better controlled. Continue AccuCheks covering with sliding scale. Hypoglycemia protocol available as needed. Continue current medications. (5) Witnessed apneic spells: Code(s): R06.81 - Apnea, not elsewhere classified Status: Acute Assessment and Plan: Given the patient's body habitus and witnessed apneic episodes ApneaLink was ordered. Apnea link was normal. Follow (6) Ovarian cyst: Code(s): N83.209 - Unspecified ovarian cyst, unspecified side Status: Acute Assessment and Plan: Bedside urine preg test negative. CT scan showing a 3cm right ovarian cyst. Pelvic US showing 3.4cm simple right ovarian cyst felt to be benign Plan DVT Prophylaxis - SCDs Code status - Full Subjective Date/time seen: 03/06/23 10:12 Interval history: 22yo female with DM/ROSIE here for back pain and found to have renal abscess. She states ?I am okay?. Still having right-sided abdominal and flank pain. Slept okay last night. No chest pain or shortness of breath. She did have shortness of breath last night better with sitting up but no orthopnea overnight. She does have anxiety when sleeping in a different location other than her home. Exam Narrative: AF 97.7 102/67 77 16 100% ra Gen - NARD lying almost flat in bed Chest - CTA bilaterally, nml RR CV - RRR S1/S2 Abd - Soft, ND, +BS. Mild RLQ tenderness Back - rt sided CVA tenderness Ext - No pedal edema Neuro - Alert and oriented. Nonfocal exam. Psych - Nml mood and affect Skin - Warm and dry Objective Data Vital Signs Vital Signs: Vital Signs - 24 hr 03/05/23 13:12 03/05/23 15:48 03/05/23 16:30 Temperature 97.9 F Pulse Rate 99 84 77 Respiratory Rate 16 18 18 Blood Pressure 139/76 123/76 128/83 Pulse Oximetry 99 99 99 Oxygen Delivery 03/05/23 16:52 03/05/23 17:12 03/05/23 20:13 Temperature 97.9 F Pulse Rate 72 76 86 Respiratory Rate 18 18 18 Blood Pressure 123/83 150/93 H 128/81 Pulse Oximetry 99 97 100 Oxygen Delivery 03/05/23 22:50 03/06/23
[2023-03-06 11:16] LABS: Glucose Point of Care 210 mg/dl (65-105)
[2023-03-06 11:30] VITALS: BMI 32.3
[2023-03-06 14:00] VITALS: BP 119/70; PULSE 76; RESP 16; TEMP 36.4; O2SAT 100
[2023-03-06 16:24] LABS: Glucose Point of Care 229 mg/dl (65-105)
[2023-03-06 20:00] VITALS: PULSE 83; RESP 12; O2SAT 100
[2023-03-06 20:28] LABS: Glucose Point of Care 288 mg/dl (65-105)
[2023-03-06] MEDS: INSULIN GLARGINE (*BKC) 100 UNITS/ML 10 UNITS SUB-Q (21:04)
[2023-03-06 21:07] VITALS: BP 129/77; PULSE 83; RESP 12; TEMP 37; O2SAT 100
[2023-03-06] MEDS: cloNIDine HCL 0.2 MG TABLET PO (21:07)
[2023-03-07] MEDS: SODIUM CHLORIDE 0.9% IV 1,000 ML 125 ML IV CONT (04:59)
[2023-03-07] MEDS: KETOROLAC 30 MG/ML VIAL (*BKC) IV PUSH ×2 (05:01→21:05)
[2023-03-07 05:17] VITALS: BP 133/76; PULSE 76; RESP 12; TEMP 36.3; O2SAT 98
[2023-03-07 07:00] LABS: Albumin Level 3.3 g/dL (3.5-5.1); Anion Gap 6 mmol/L (8-16); Calcium 8.2 mg/dL (8.4-10.2); Carbon Dioxide 24 mmol/L (22-30); Chloride 104 mmol/L (98-107); Estimated CRCL calculation 189 ml/min; Estimated Glomerular Filt Rate > 60; Glucose 235 mg/dL (65-110); Magnesium 1.8 mg/dL (1.6-2.3); Potassium 3.9 mmol/L (3.4-5.0); Sodium 134 mmol/L (137-145)
[2023-03-07 07:02] LABS: Blood Urea Nitrogen < 2 mg/dL (7-17)
[2023-03-07 07:14] LABS: Basophils Percent Auto 0.4 % (0.2-1.2); Eosinophils Absolute Auto 0.2 K/mm3 (0-0.3); Eosinophils Percent Auto 1.7 % (0-4.4); Hematocrit 35.5 % (37.0-47.0); Hemoglobin 11.7 g/dL (12.0-15.0); Immature Granulocyte Absolute 0.04 K/mm3 (0.00-0.031); Immature Granulocyte Percent A 0.4 % (0-0.5); Lymphocytes Absolute Auto 1.58 K/mm3 (0.9-3.2); Lymphocytes Percent Auto 15.4 % (18.3-44.2); Mean Corpuscular Hemoglobin 27.3 pg (26-34); Mean Corpuscular Volume 82.8 fl (80-100); Mean Platelet Volume 11.1 fl (7.4-10.4); Monocytes Absolute Auto 0.7 K/mm3 (0.1-0.6); Monocytes Percent Auto 7.1 % (2.6-8.5); Neutrophils Absolute Auto 7.7 K/mm3 (1.3-6.7); Platelet Count Result 336 k/mm3 (150-375); Red Blood Count 4.29 M/mm3 (4.2-5.4); Red Cell Distribution Width 12.5 % (11.5-14.5); White Blood Count 10.2 K/mm3 (4.5-10.0)
[2023-03-07 07:52] LABS: Glucose Point of Care 239 mg/dl (65-105)
[2023-03-07] MEDS: INSULIN ASPART (*BKC) 100 UNITS/ML SUB-Q ×5 (08:56→18:00)
[2023-03-07] MEDS: ARIPiprazole 10 MG TABLET PO (08:57)
[2023-03-07] MEDS: FAMOTIDINE 20 MG TABLET PO ×2 (08:57→21:05)
[2023-03-07] MEDS: GABAPENTIN 100 MG CAPSULE PO ×3 (08:57→18:00)
[2023-03-07] MEDS: cefTRIAXone 2 GM/NS 100 ML 2 GM/100 ML BAG IVPB (08:57)
[2023-03-07 11:46] LABS: Glucose Point of Care 301 mg/dl (65-105)
[2023-03-07 14:00] VITALS: BP 126/75; PULSE 80; RESP 14; TEMP 36.8; O2SAT 97
--- NOTE | 2023-03-07 16:29 | PM.IMPN ---
Progress Note: A&P Assessment and Plan (1) Nephritis due to bacterial infection: Code(s): N12 - Tubulo-interstitial nephritis, not specified as acute or chronic; B96.89 - Other specified bacterial agents as the cause of diseases classified elsewhere Status: Acute Assessment and Plan: Patient presents to the ED for right sided abdominal and back pain. UA consistent with UTI except many squamous epithelial cells. Urine and Blood cultures collected. No old positive cultures to review. CT Abd/Pelvis showing acute focal nephritis involving the right upper kidney pole with adjacent 1.7cm renal abscess. Likely developing abscess of 1.7cm left upper pole of kidney. Patient not septic. Rocephin started and dose advanced to high dose. UCx growing EColi - sensitivities pending BCx NGTD Follow up on urine and blood cultures. Plan for repeat imaging Urology consulted and appreciate their input. (2) Abscess of right kidney: Code(s): N15.1 - Renal and perinephric abscess Status: Acute Assessment and Plan: As above. (3) Abscess of left kidney: Code(s): N15.1 - Renal and perinephric abscess Status: Acute Assessment and Plan: As above (4) ROSIE (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): Code(s): E13.9 - Other specified diabetes mellitus without complications Status: Acute Assessment and Plan: A1c 10. Patient does have type 2 diabetes mellitus with complications including neuropathy. Glucose 556 on admission. Glucoses are chronically uncontrolled at home. The patient does not check her Accu-Cheks. She does not use sliding scale insulin. Patient's glucoses have improved significantly after receiving 2 L of IV fluids in the ER and 10 units of subq NovoLog in the ER. perioperative educator was consulted. Meal time Novolog and lantus added The patient's blood glucose was reviewed on 03/07 Glucose better controlled. Continue AccuCheks covering with sliding scale. Hypoglycemia protocol available as needed. Advance current medications. (5) Witnessed apneic spells: Code(s): R06.81 - Apnea, not elsewhere classified Status: Acute Assessment and Plan: Given the patient's body habitus and witnessed apneic episodes ApneaLink was ordered. Apnea link was normal. Follow (6) Ovarian cyst: Code(s): N83.209 - Unspecified ovarian cyst, unspecified side Status: Acute Assessment and Plan: Bedside urine preg test negative. CT scan showing a 3cm right ovarian cyst. Pelvic US showing 3.4cm simple right ovarian cyst felt to be benign Plan DVT Prophylaxis - SCDs Code status - Full Subjective Date/time seen: 03/07/23 16:29 Interval history: 22yo female with DM/ROSIE here for back pain and found to have renal abscess. No problems overnight. Back pain better. Abd pain better. No dysuria. Exam Narrative: AF 98.2 126/75 80 14 97% ra Gen - NARD lying almost flat in bed Chest - CTA bilaterally, nml RR CV - RRR S1/S2 Abd - Soft, ND/NT, +BS. Back - mild rt sided CVA tenderness Ext - No pedal edema Psych - Nml mood and affect Skin - Warm and dry Objective Data Vital Signs Vital Signs: Vital Signs - 24 hr 03/06/23 21:07 03/06/23 20:00 03/07/23 05:17 Temperature 98.6 F 97.3 F L Pulse Rate 83 83 76 Respiratory Rate 12 12 12 Blood Pressure 129/77 133/76 Pulse Oximetry 100 100 98 Oxygen Delivery Room Air 03/07/23 08:00 03/07/23 14:00 Temperature 98.2 F Pulse Rate 80 Respiratory Rate 14 Blood Pressure 126/75 Pulse Oximetry 97 Oxygen Delivery Room Air Intake/Output Intake/Output: Intake & Output 03/04/23 03/05/23 03/06/23 03/07/23 23:59 23:59 23:59 23:59 Intake Total 2049 4900 2430 Output Total 0 Balance 2049 4899 2430 Meds/Results Medications: Active Medications Generic Name Dose Route Start Last Admin Trade Name Freq PRN Reason Stop Dose Admin Aripiprazole 10 m
[2023-03-07 17:46] LABS: Glucose Point of Care 227 mg/dl (65-105)
[2023-03-07 21:00] VITALS: PULSE 84; O2SAT 98
[2023-03-07] MEDS: cloNIDine HCL 0.2 MG TABLET PO (21:05)
[2023-03-07 21:44] VITALS: BP 139/88; PULSE 81; RESP 18; TEMP 36.8; O2SAT 98
[2023-03-07 22:01] LABS: Glucose Point of Care 292 mg/dl (65-105)
[2023-03-07] MEDS: INSULIN GLARGINE (*BKC) 100 UNITS/ML 15 UNITS SUB-Q (22:06)
[2023-03-08 06:00] VITALS: BP 139/85; PULSE 74; RESP 16; TEMP 36.9; O2SAT 97
[2023-03-08 07:41] LABS: Glucose Point of Care 300 mg/dl (65-105)
[2023-03-08] MEDS: GABAPENTIN 100 MG CAPSULE PO ×3 (08:22→17:06)
[2023-03-08] MEDS: ARIPiprazole 10 MG TABLET PO (08:22)
[2023-03-08] MEDS: FAMOTIDINE 20 MG TABLET PO ×2 (08:22→20:25)
[2023-03-08] MEDS: cefTRIAXone 2 GM/NS 100 ML 2 GM/100 ML BAG IVPB (08:22)
[2023-03-08] MEDS: INSULIN ASPART (*BKC) 100 UNITS/ML SUB-Q ×3 (08:29→17:07)
[2023-03-08] MEDS: INSULIN ASPART (*BKC) 100 UNITS/ML 7 UNITS SUB-Q ×3 (08:29→17:07)
--- NOTE | 2023-03-08 10:33 | PM.IMPN ---
Progress Note: A&P Assessment and Plan (1) Nephritis due to bacterial infection: Code(s): N12 - Tubulo-interstitial nephritis, not specified as acute or chronic; B96.89 - Other specified bacterial agents as the cause of diseases classified elsewhere Status: Acute Assessment and Plan: Patient presents to the ED for right sided abdominal and back pain. UA consistent with UTI except many squamous epithelial cells. Urine and Blood cultures collected. No old positive cultures to review. CT Abd/Pelvis showing acute focal nephritis involving the right upper kidney pole with adjacent 1.7cm renal abscess. Likely developing abscess of 1.7cm left upper pole of kidney. Patient not septic. Rocephin started and dose advanced to high dose. UCx growing EColi - sensitivities pending BCx NGTD Follow up on urine and blood cultures. Plan for repeat imaging Urology consulted and appreciate their input. Transition to oral Augmentin (2) Abscess of right kidney: Code(s): N15.1 - Renal and perinephric abscess Status: Acute Assessment and Plan: As above. (3) Abscess of left kidney: Code(s): N15.1 - Renal and perinephric abscess Status: Acute Assessment and Plan: As above (4) ROSIE (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): Code(s): E13.9 - Other specified diabetes mellitus without complications Status: Acute Assessment and Plan: A1c 10. Patient does have type 2 diabetes mellitus with complications including neuropathy. Glucose 556 on admission. Glucoses are chronically uncontrolled at home. The patient does not check her Accu-Cheks. She does not use sliding scale insulin. Patient's glucoses have improved significantly after receiving 2 L of IV fluids in the ER and 10 units of subq NovoLog in the ER. sales representative girls' apparel was consulted. Meal time Novolog and lantus added The patient's blood glucose was reviewed on 03/08 Glucose better controlled. Continue AccuCheks covering with sliding scale. Hypoglycemia protocol available as needed. Advance current medications. (5) Witnessed apneic spells: Code(s): R06.81 - Apnea, not elsewhere classified Status: Acute Assessment and Plan: Given the patient's body habitus and witnessed apneic episodes ApneaLink was ordered. Apnea link was normal. Follow (6) Ovarian cyst: Code(s): N83.209 - Unspecified ovarian cyst, unspecified side Status: Acute Assessment and Plan: Bedside urine preg test negative. CT scan showing a 3cm right ovarian cyst. Pelvic US showing 3.4cm simple right ovarian cyst felt to be benign Plan DVT Prophylaxis - SCDs Code status - Full Subjective Date/time seen: 03/08/23 10:33 Interval history: 22yo female with DM/ROSIE here for back pain and found to have renal abscess. No overnight events noted. No chest pain or shortness of breath. No nausea, vomiting or diarrhea. No fevers or chills. Review of Systems Review of Systems: 12 point review of systems was assessed and was negative except as noted in the HPI Exam Narrative: General: No acute distress, alert and oriented per baseline HEENT: Atraumatic, normocephalic, mucous membranes moist CV: Regular rate and rhythm, S1, S2 Lungs: Clear to auscultation bilaterally, no rales or crackles noted, no wheezes, good air entry Abdomen: Soft, nontender, nondistended, no CVA tenderness Extremities: Normal to inspection, no edema Skin: No rashes noted, no lesions or wounds seen Psych: Euthymic, normal affect Objective Data Vital Signs Vital Signs: Vital Signs - 24 hr 03/07/23 14:00 03/07/23 21:00 03/07/23 21:44 Temperature 98.2 F 98.2 F Pulse Rate 80 84 81 Respiratory Rate 14 18 Blood Pressure 126/75 139/88 Pulse Oximetry 97 98 98 Oxygen Delivery 03/07/23 20:00 03/08/23 06:00 Temperature 98.4 F Pulse Rate 74 Respiratory Rate 16 Blood Pressure 139
[2023-03-08 11:14] LABS: Glucose Point of Care 237 mg/dl (65-105)
[2023-03-08 14:00] VITALS: BP 144/94; PULSE 69; RESP 18; TEMP 36.1; O2SAT 100
[2023-03-08 16:40] LABS: Glucose Point of Care 306 mg/dl (65-105)
[2023-03-08] MEDS: cloNIDine HCL 0.2 MG TABLET PO (20:25)
[2023-03-08] MEDS: INSULIN GLARGINE (*BKC) 100 UNITS/ML 15 UNITS SUB-Q (20:26)
[2023-03-08 20:34] LABS: Glucose Point of Care 295 mg/dl (65-105)
[2023-03-08] MEDS: KETOROLAC 30 MG/ML VIAL (*BKC) IV PUSH (20:34)
[2023-03-08 21:43] VITALS: BP 139/91; PULSE 77; RESP 20; TEMP 36.9; O2SAT 99
[2023-03-09] MEDS: ONDANSETRON INJ 4 MG/2 ML VIAL IV PUSH (01:33)
[2023-03-09 06:00] VITALS: BP 131/87; PULSE 69; RESP 20; TEMP 36.7; O2SAT 99
[2023-03-09 07:22] LABS: Glucose Point of Care 318 mg/dl (65-105)
--- NOTE | 2023-03-09 07:45 | PC.NURSE ---
RN notified provider of continued elevated Blood glucose reading this morning of 318. Provider orders the 7 units of novolog be held and a one time dose of 10 units Novolog and 5 units of lantus be administered at this time.
--- NOTE | 2023-03-09 08:11 | PM.IMPN ---
Progress Note: A&P Assessment and Plan (1) Nephritis due to bacterial infection: Code(s): N12 - Tubulo-interstitial nephritis, not specified as acute or chronic; B96.89 - Other specified bacterial agents as the cause of diseases classified elsewhere Status: Acute Assessment and Plan: CT Abd/Pelvis showing acute focal nephritis involving the right upper kidney pole with adjacent 1.7cm renal abscess. Likely developing abscess of 1.7cm left upper pole of kidney. UCx EColi, transition to oral Augmentin 03/08, BCx NGTD Urology consulted and appreciate their input. Recheck CT renal abscess 03/09 (2) Abscess of right kidney: Code(s): N15.1 - Renal and perinephric abscess Status: Acute Assessment and Plan: As above. (3) Abscess of left kidney: Code(s): N15.1 - Renal and perinephric abscess Status: Acute Assessment and Plan: As above (4) ROSIE (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): Code(s): E13.9 - Other specified diabetes mellitus without complications Status: Acute Assessment and Plan: A1c 10. Patient does have type 2 diabetes mellitus with complications including neuropathy nursing educator was consulted. Meal time Novolog 10 units and lantus 20 units QHS The patient's blood glucose was reviewed on 03/09 Glucose better controlled. Continue AccuCheks covering with sliding scale. Hypoglycemia protocol available as needed. Advance current medications. (5) Witnessed apneic spells: Code(s): R06.81 - Apnea, not elsewhere classified Status: Acute Assessment and Plan: Given the patient's body habitus and witnessed apneic episodes ApneaLink was ordered. Apnea link was normal. Follow (6) Ovarian cyst: Code(s): N83.209 - Unspecified ovarian cyst, unspecified side Status: Acute Assessment and Plan: Bedside urine preg test negative. CT scan showing a 3cm right ovarian cyst. Pelvic US showing 3.4cm simple right ovarian cyst felt to be benign Plan DVT Prophylaxis - SCDs Code status - Full Subjective Date/time seen: 03/09/23 08:11 Interval history: 22yo female with DM/ROSIE here for back pain and found to have renal abscess. No overnight events noted. No chest pain or shortness of breath. No nausea, vomiting or diarrhea. No fevers or chills. Review of Systems Review of Systems: 12 point review of systems was assessed and was negative except as noted in the HPI Exam Narrative: General: No acute distress, alert and oriented per baseline HEENT: Atraumatic, normocephalic, mucous membranes moist CV: Regular rate and rhythm, S1, S2 Lungs: Clear to auscultation bilaterally, no rales or crackles noted, no wheezes, good air entry Abdomen: Soft, nontender, nondistended, no CVA tenderness Extremities: Normal to inspection, no edema Skin: No rashes noted, no lesions or wounds seen Psych: Euthymic, normal affect Objective Data Vital Signs Vital Signs: Vital Signs - 24 hr 03/08/23 08:22 03/08/23 14:00 03/08/23 21:43 Temperature 96.9 F L 98.4 F Pulse Rate 69 77 Respiratory Rate 18 20 Blood Pressure 144/94 H 139/91 H Pulse Oximetry 100 99 Oxygen Delivery Room Air 03/09/23 06:00 Temperature 98.1 F Pulse Rate 69 Respiratory Rate 20 Blood Pressure 131/87 Pulse Oximetry 99 Oxygen Delivery Intake/Output Intake/Output: Intake & Output 03/06/23 03/07/23 03/08/23 03/09/23 23:59 23:59 23:59 23:59 Intake Total 4900 2802 2444 200 Output Total 0 Balance 4900 2802 2444 200 Meds/Results Medications: Active Medications Generic Name Dose Route Start Last Admin Trade Name Freq PRN Reason Stop Dose Admin Amoxicillin/Clavulanate Potassium 1 tablet 03/09/23 09:00 Amoxicillin/Clavulanate K 875-125 Mg Tab PO 03/12/23 21:01 Q12HR [facility] Aripiprazole 10 mg 03/06/23 09:00 03/08/23 08:22 Aripiprazole 10 Mg Tablet PO 10 mg
[2023-03-09] MEDS: INSULIN GLARGINE (*BKC) 100 UNITS/ML SUB-Q (08:28)
[2023-03-09] MEDS: INSULIN ASPART (*BKC) 100 UNITS/ML 10 UNITS SUB-Q ×2 (08:29→17:23)
[2023-03-09] MEDS: GABAPENTIN 100 MG CAPSULE PO ×3 (08:30→17:24)
[2023-03-09] MEDS: ARIPiprazole 10 MG TABLET PO (08:30)
[2023-03-09] MEDS: FAMOTIDINE 20 MG TABLET PO ×2 (08:30→20:09)
[2023-03-09] MEDS: AMOXICILLIN/CLAVULANATE K 875-125 MG TAB 1 TABLET PO ×2 (08:30→20:09)
[2023-03-09] MEDS: polyethylene glycoL 3350 17 GM POWD.PACK PO (08:34)
[2023-03-09 08:53] LABS: Basophils Percent Auto 0.3 % (0.2-1.2); Eosinophils Absolute Auto 0.2 K/mm3 (0-0.3); Eosinophils Percent Auto 2.3 % (0-4.4); Hematocrit 39.1 % (37.0-47.0); Hemoglobin 12.9 g/dL (12.0-15.0); Immature Granulocyte Absolute 0.04 K/mm3 (0.00-0.031); Immature Granulocyte Percent A 0.5 % (0-0.5); Lymphocytes Absolute Auto 1.81 K/mm3 (0.9-3.2); Lymphocytes Percent Auto 20.5 % (18.3-44.2); Mean Corpuscular Hemoglobin 26.8 pg (26-34); Mean Corpuscular Volume 81.1 fl (80-100); Mean Platelet Volume 10.8 fl (7.4-10.4); Monocytes Absolute Auto 0.5 K/mm3 (0.1-0.6); Monocytes Percent Auto 5.6 % (2.6-8.5); Neutrophils Absolute Auto 6.3 K/mm3 (1.3-6.7); Neutrophils Percent Auto 70.8 % (45.5-73.1); Platelet Count Result 405 k/mm3 (150-375); Red Blood Count 4.82 M/mm3 (4.2-5.4); Red Cell Distribution Width 12.2 % (11.5-14.5); White Blood Count 8.8 K/mm3 (4.5-10.0)
[2023-03-09 09:09] LABS: Alanine Aminotransferase 37 U/L (6-35); Albumin Level 3.8 g/dL (3.5-5.1); Alkaline Phosphatase 65 U/L (38-126); Anion Gap 8 mmol/L (8-16); Aspartate Amino Transferase 52 U/L (14-36); Bilirubin,Total 0.4 mg/dL (0.2-1.3); Blood Urea Nitrogen 9 mg/dL (7-17); Calcium 9.2 mg/dL (8.4-10.2); Carbon Dioxide 28 mmol/L (22-30); Chloride 99 mmol/L (98-107); Estimated CRCL calculation 189 ml/min; Estimated Glomerular Filt Rate > 60; Glucose 312 mg/dL (65-110); Potassium 3.8 mmol/L (3.4-5.0); Sodium 135 mmol/L (137-145)
[2023-03-09 11:21] LABS: Glucose Point of Care 321 mg/dl (65-105)
[2023-03-09] MEDS: INSULIN ASPART (*BKC) 100 UNITS/ML SUB-Q ×2 (12:04→17:23)
[2023-03-09] MEDS: INSULIN ASPART (*BKC) 100 UNITS/ML 7 UNITS SUB-Q (12:04)
[2023-03-09 13:53] VITALS: BP 139/88; PULSE 74; RESP 18; TEMP 36.3; O2SAT 98
[2023-03-09 16:24] LABS: Glucose Point of Care 272 mg/dl (65-105)
[2023-03-09 18:07] VITALS: BP 139/88; PULSE 80; RESP 19; TEMP 36.6; O2SAT 100
--- NOTE | 2023-03-09 18:14 | ECG_ITS ---
Measurements Intervals [place] Rate: 76 P: 25 CA: 156 QRS: 35 QRSD: 81 T: 95 QT: 480 QTc: 543 Interpretive Statements SINUS RHYTHM NONSPECIFIC ST & T-WAVE ABNORMALITY PROLONGED QT INTERVAL NO PREVIOUS ECG AVAILABLE FOR COMPARISON Electronically Signed On 03-10-2023 14:17:31 CDT by Leilani Gutierrez M.D.
[2023-03-09 18:20] VITALS: BP 139/88; PULSE 80; RESP 19; TEMP 36.6; O2SAT 100
[2023-03-09] MEDS: INSULIN GLARGINE (*BKC) 100 UNITS/ML 20 UNITS SUB-Q (20:09)
[2023-03-09] MEDS: cloNIDine HCL 0.2 MG TABLET PO (20:09)
[2023-03-09 21:19] LABS: Glucose Point of Care 281 mg/dl (65-105)
[2023-03-09 22:00] VITALS: BP 135/92; PULSE 84; RESP 14; TEMP 35.7; O2SAT 100
[2023-03-10 06:00] VITALS: BP 117/84; PULSE 71; RESP 12; TEMP 36.2; O2SAT 99
[2023-03-10 06:38] LABS: Glucose Point of Care 273 mg/dl (65-105)
[2023-03-10 06:48] LABS: Basophils Percent Auto 0.4 % (0.2-1.2); Eosinophils Absolute Auto 0.2 K/mm3 (0-0.3); Eosinophils Percent Auto 2.1 % (0-4.4); Hematocrit 40.8 % (37.0-47.0); Hemoglobin 13.5 g/dL (12.0-15.0); Immature Granulocyte Absolute 0.07 K/mm3 (0.00-0.031); Immature Granulocyte Percent A 0.6 % (0-0.5); Lymphocytes Absolute Auto 1.91 K/mm3 (0.9-3.2); Lymphocytes Percent Auto 17.5 % (18.3-44.2); Mean Corpuscular HGB Conc 33.1 g/dl (32-36); Mean Corpuscular Hemoglobin 27.2 pg (26-34); Mean Corpuscular Volume 82.1 fl (80-100); Mean Platelet Volume 10.8 fl (7.4-10.4); Monocytes Absolute Auto 0.7 K/mm3 (0.1-0.6); Monocytes Percent Auto 6.3 % (2.6-8.5); Neutrophils Percent Auto 73.1 % (45.5-73.1); Platelet Count Result 433 k/mm3 (150-375); Red Blood Count 4.97 M/mm3 (4.2-5.4); Red Cell Distribution Width 12.3 % (11.5-14.5); White Blood Count 10.9 K/mm3 (4.5-10.0)
[2023-03-10 06:56] LABS: Alanine Aminotransferase 38 U/L (6-35); Albumin Level 3.9 g/dL (3.5-5.1); Alkaline Phosphatase 62 U/L (38-126); Anion Gap 10 mmol/L (8-16); Aspartate Amino Transferase 50 U/L (14-36); Bilirubin,Total 0.5 mg/dL (0.2-1.3); Blood Urea Nitrogen 10 mg/dL (7-17); Calcium 9.2 mg/dL (8.4-10.2); Carbon Dioxide 27 mmol/L (22-30); Chloride 99 mmol/L (98-107); Estimated CRCL calculation 189 ml/min; Estimated Glomerular Filt Rate > 60; Glucose 273 mg/dL (65-110); Potassium 4.1 mmol/L (3.4-5.0); Sodium 136 mmol/L (137-145)
[2023-03-10 08:17] LABS: Glucose Point of Care 263 mg/dl (65-105)
[2023-03-10] MEDS: ARIPiprazole 10 MG TABLET PO (08:48)
[2023-03-10] MEDS: GABAPENTIN 100 MG CAPSULE PO ×2 (08:48→12:52)
[2023-03-10] MEDS: INSULIN ASPART (*BKC) 100 UNITS/ML SUB-Q ×2 (08:48→12:52)
[2023-03-10] MEDS: FAMOTIDINE 20 MG TABLET PO (08:48)
[2023-03-10] MEDS: AMOXICILLIN/CLAVULANATE K 875-125 MG TAB 1 TABLET PO (08:48)
[2023-03-10] MEDS: INSULIN ASPART (*BKC) 100 UNITS/ML 10 UNITS SUB-Q ×2 (08:48→12:52)
--- NOTE | 2023-03-10 11:37 | PM.DS ---
DS: Admitting Diagnosis Discharge Date 03/10/23 Admitting Diagnosis back pain DS: Discharge Diagnosis Discharge Diagnosis (1) Nephritis due to bacterial infection: Code(s): N12 - Tubulo-interstitial nephritis, not specified as acute or chronic; B96.89 - Other specified bacterial agents as the cause of diseases classified elsewhere Status: Acute Assessment and Plan: CT Abd/Pelvis showing acute focal nephritis involving the right upper kidney pole with adjacent 1.7cm renal abscess. Likely developing abscess of 1.7cm left upper pole of kidney. UCx EColi, transition to oral Augmentin 03/08, BCx NGTD Urology consulted and appreciate their input. Recheck CT renal abscess 03/09 (2) Abscess of right kidney: Code(s): N15.1 - Renal and perinephric abscess Status: Acute Assessment and Plan: As above. (3) Abscess of left kidney: Code(s): N15.1 - Renal and perinephric abscess Status: Acute Assessment and Plan: As above (4) ROSIE (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): Code(s): E13.9 - Other specified diabetes mellitus without complications Status: Acute Assessment and Plan: A1c 10. Patient does have type 2 diabetes mellitus with complications including neuropathy special educator was consulted. Meal time Novolog 10 units and lantus 20 units QHS The patient's blood glucose was reviewed on 03/09 Glucose better controlled. Continue AccuCheks covering with sliding scale. Hypoglycemia protocol available as needed. Advance current medications. (5) Witnessed apneic spells: Code(s): R06.81 - Apnea, not elsewhere classified Status: Acute Assessment and Plan: Given the patient's body habitus and witnessed apneic episodes ApneaLink was ordered. Apnea link was normal. Follow (6) Ovarian cyst: Code(s): N83.209 - Unspecified ovarian cyst, unspecified side Status: Acute Assessment and Plan: Bedside urine preg test negative. CT scan showing a 3cm right ovarian cyst. Pelvic US showing 3.4cm simple right ovarian cyst felt to be benign Plan DVT Prophylaxis - SCDs Code status - Full DS: Summary Hospital Course Hospital Course: 22yo female with DM/ROSIE here for back pain and found to have renal abscess. CT Abd/Pelvis showing acute focal nephritis involving the right upper kidney pole with adjacent 1.7cm renal abscess. Likely developing abscess of 1.7cm left upper pole of kidney. UCx EColi, transition to oral Augmentin 03/08, BCx NGTD Urology consulted and appreciate their input. Recheck CT renal abscess 03/09 A1c 10. Patient does have type 2 diabetes mellitus with complications including neuropathy special educator was consulted. Meal time Novolog 10 units and lantus 20 units QHS The patient's blood glucose was reviewed on 03/09 Glucose better controlled.? Continue AccuCheks covering with sliding scale.? Hypoglycemia protocol available as needed.? Advance current medications. Please see above and med rec for details. Time Spent with Patient Time attestation: Total time spent providing and/or coordinating discharge services: Exam Narrative: General: No acute distress, alert and oriented per baseline HEENT: Atraumatic, normocephalic, mucous membranes moist CV: Regular rate and rhythm, S1, S2 Lungs: Clear to auscultation bilaterally, no rales or crackles noted, no wheezes, good air entry Abdomen: Soft, nontender, nondistended, no CVA tenderness Extremities: Normal to inspection, no edema Skin: No rashes noted, no lesions or wounds seen Psych: Euthymic, normal affect DS: Data Data Completed and Pending Labs on day of discharge: Labs from last 24 hours 03/10/23 03/10/23 03/10/23 08:14 06:34 05:58 WBC 10.9 H RBC 4.97 Hgb 13.5 Hct 40.8 MCV 82.1 MCH 27.2 MCHC 33.1 RDW 12.3 Plt Count 433 H MPV 10.8 H Immature Gran % (Auto) 0.6 H Neut % (Au
[2023-03-10 12:07] LABS: Glucose Point of Care 275 mg/dl (65-105)
== END 2023-03-10 13:50 | disposition home or self-care (01) | DRG 462 ==
LOC: ANHED 17:57 → ANH3MEDSUR 18:28
PROVIDERS: Emergency Medicine; Internal Medicine; Admitting Provider Hospitalist; Emergency Provider General Practice; Visit Provider Student in an Organized Health Care Education/Training Program
DX: N00.9 Acute nephritic syndrome with unspecified morphologic changes (principal); E13.40 Other specified diabetes mellitus with diabetic neuropathy, unspecified; E13.65 Other specified diabetes mellitus with hyperglycemia; R06.81 Apnea, not elsewhere classified; N15.1 Renal and perinephric abscess; B96.20 Unspecified Escherichia coli [E. coli] as the cause of diseases classified elsewhere; F31.9 Bipolar disorder, unspecified; N83.201 Unspecified ovarian cyst, right side; Z79.4 Long term (current) use of insulin; F90.9 Attention-deficit hyperactivity disorder, unspecified type
CPT/HCPCS: 36415; 74176; 74177; 76830; 76856; 80053; 80069; 81001; 81025; 82948; 83036; 83605; 83735; 85025; 87040; 87077; 87086; 87088; 87186; 93005; 96361; 96365; 96375; 99285; A9270; C9113; J0696; J1815; J1885; J2405; J7030; Q9967

== ENCOUNTER 2023-03-13 14:18 | Emergency (ER) | payer OTHER, SELFPAY ==
--- NOTE | ~2023-03-13 | CT_ITS ---
EXAMINATION: CT abdomen w con DATE: 03/13/2023 16:37 INDICATION: Renal abscesses TECHNIQUE: Computed tomography (CT) of the abdomen and pelvis was performed with 100 mL Omnipaque-350 intravenous contrast. Automated exposure control and iterative reconstruction technique were employe d. The dose-length product was 618.16 mGy-cm. COMPARISON: Studies dated 03/05/2023 through 03/10/2023 FINDINGS: Minimal dependent atelectasis in the bilateral lower lobes. Heart size is normal. No pericardial or p leural effusion. Liver, gallbladder, spleen, pancreas and bilateral adrenal glands are normal. Again seen are bilateral central fluid signal intensity peripherally enhancing renal abscesses which appear s slightly decreased in size since the prior study. The larger lesion at the posterolateral upper liana e the right kidney measures 1.9 x 1.7 x 1.6 cm versus previous measurements of 2.2 x 1.9 x 2.4 cm and at the lateral upper pole of the left kidney currently measuring 1.6 x 0.8 x 2.1 cm versus previousl y measuring 1.9 x 0.9 x 2.1 cm. Visualized portion of the bowels and appendix are normal. No patholog ically enlarged abdominal lymphadenopathy. Bones are unremarkable. IMPRESSION: 1. Minimal decrease in size of persistent small abscesses at the upper poles of both kidneys. Reviewed, dictated and finalized at location A.
[2023-03-13 14:20] VITALS: BP 138/81; PULSE 78; RESP 18; TEMP 36.8; O2SAT 100
[2023-03-13 14:33] LABS: Glucose Point of Care > 500 mg/dl (65-105)
--- NOTE | 2023-03-13 14:49 | ED.RECABL ---
HPI - Recheck/Abnormal Lab/Rx General Chief Complaint: Recheck/Abnormal Lab/Rx Stated Complaint: high blood sugar Time Seen by Provider: 03/13/23 14:34 Source: patient Mode of arrival: ambulatory Limitations: no limitations History of Present Illness HPI narrative: This is a 22 year old female that presents to the ER for hyperglycemia. Reports her blood sugar has been in the 500s today. Reports she has been taking her insulin as prescribed. She was recently admitted for a kidney infection. Discharged on oral antibiotics. She does report she has been taking her antibiotics as well. She has continued to have right flank pain. Also reports nausea and vomiting starting last night. Denies dysuria. Related Data Home Medications Medication Instructions Recorded Confirmed aripiprazole 10 mg tablet 10 mg PO DAILY 03/05/23 03/05/23 clonidine HCl 0.2 mg tablet 0.2 mg PO HS 03/05/23 03/05/23 dextroamphetamine-amphetamine ER 20 mg PO DAILY 03/05/23 03/05/23 20 mg 24hr capsule,extend release gabapentin 100 mg capsule 100 mg PO TID 03/05/23 03/05/23 insulin detemir U-100 100 unit/mL 10 unit subcut BID 03/05/23 03/06/23 (3 mL) subcutaneous pen Allergies Allergy/AdvReac Type Severity Reaction Status Date / Time morphine Allergy Hives Verified 03/05/23 13:55 Review of Systems Review of Systems: CONSTITUTIONAL: Denies fever GASTROINTESTINAL: Reports nausea, vomiting and flank pain GENITOURINARY: Denies dysuria or hematuria. All systems reviewed & are unremarkable except as noted in HPI and below PMFSH Past Medical History Medical History ADHD (attention deficit hyperactivity disorder) Bipolar disorder Diabetic peripheral neuropathy ROSIE (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) Surgical History Surgical History No pertinent past surgical history Family History Family History Father Bipolar disorder Schizophrenia Heart failure Mother Age: 35 Schizophrenia Diabetes mellitus Hypertension Bipolar disorder COPD (chronic obstructive pulmonary disease) Chronic kidney disease Social History Social History Social History: She has been involved with her boyfriend for the last 2 years. She has lived with her boyfriend and his family for the last year. 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 She reports that she drinks 5-6 alcoholic beverages every couple of months. Code status: Full code Smoking status: Never smoker Alcohol intake: current Drinks per week: 3 Substance use: former Substance use type: marijuana Last use: 2019 Lack of Transportation: No Lack of Food: Never True Current Housing: I Have Housing Concerned About Future Housing: No Difficulty Paying Gas/Electric Bills: No Difficulty Paying for Meds: No Currently Unemployed: No Education: High School Diploma/GED Difficulty w/ Childcare or Family Care: No Spiritual care concerns: No Exam Narrative: GENERAL: Well-appearing, well-nourished, and in no acute distress. HEAD: Normocephalic, atraumatic. EYES: EOMI. CHEST: Clear to auscultation. No respiratory distress. No wheezes rales or rhonchi HEART: Regular rate and rhythm. No murmur heard. Normal peripheral pulses. ABDOMEN: Soft, nontender, nondistended, normal active bowel sounds. No CVA tenderness EXTREMITIES: Normal range of motion. No edema. SKIN: Warm, dry, no rash. NEURO: No focal deficits. Alert and oriented x3. PSYCH: Normal mood and affect Course Course Emergency Course: Patient was updated on workup and agrees with plan of care Vital Signs Vital signs: Vital Signs Temperature 98.3 F 03/13/23 14:20 Pulse Rate 78 03/13/23 14:20 Respiratory Rate 18 03/13/23 14:20 Blood Pressur
[2023-03-13] MEDS: SODIUM CHLORIDE 0.9% IV 1,000 ML 999 ML IV CONT ×2 (14:55→17:31)
[2023-03-13 15:00] VITALS: BP 122/76; PULSE 94; RESP 20; O2SAT 97
[2023-03-13 15:01] LABS: Basophils Absolute Auto 0.1 K/mm3 (0.0-0.1); Basophils Percent Auto 0.6 % (0.2-1.2); Eosinophils Absolute Auto 0.2 K/mm3 (0-0.3); Eosinophils Percent Auto 2.5 % (0-4.4); Hematocrit 43.4 % (37.0-47.0); Hemoglobin 14.3 g/dL (12.0-15.0); Immature Granulocyte Absolute 0.02 K/mm3 (0.00-0.031); Immature Granulocyte Percent A 0.3 % (0-0.5); Lymphocytes Absolute Auto 2.06 K/mm3 (0.9-3.2); Lymphocytes Percent Auto 26.7 % (18.3-44.2); Mean Corpuscular HGB Conc 32.9 g/dl (32-36); Mean Corpuscular Hemoglobin 27.1 pg (26-34); Mean Corpuscular Volume 82.4 fl (80-100); Mean Platelet Volume 11.1 fl (7.4-10.4); Monocytes Absolute Auto 0.5 K/mm3 (0.1-0.6); Monocytes Percent Auto 6.2 % (2.6-8.5); Neutrophils Absolute Auto 4.9 K/mm3 (1.3-6.7); Neutrophils Percent Auto 63.7 % (45.5-73.1); Platelet Count Result 492 k/mm3 (150-375); Red Blood Count 5.27 M/mm3 (4.2-5.4); Red Cell Distribution Width 12.6 % (11.5-14.5); White Blood Count 7.7 K/mm3 (4.5-10.0)
[2023-03-13 15:07] LABS: Appearance Urine Slightly Cloudy (Clear); Bilirubin Urine Negative (Negative); Blood Urine 3+ (Negative); Color Urine Yellow (Yellow); Glucose Urine UA 3+ mg/dL (Negative); Ketones Urine Negative (Negative); Leukocyte Esterase Ur Negative LEU/UL (Negative); Nitrate Urine Negative (Negative); Protein Urine Negative (Negative); Urobilinogen Urine 0.2 mg/dL (<2.0); pH Urine 5.5 (5.0-9.0)
[2023-03-13 15:11] VITALS: BP 122/76; PULSE 95; RESP 20; O2SAT 95
[2023-03-13 15:19] LABS: Bacteria Urine None Seen /hpf; Need Manual Microscopic Reviewed; Non Pathogenic Casts 0-2; RBC Urine >100 /hpf (0-2); Squamous Epithelial Cell Urine Occasional /hpf (Few); WBC Urine 0-5 /hpf
[2023-03-13 15:20] LABS: Add Urine Microscopic? YES
[2023-03-13 15:22] LABS: Beta-Hydroxybutyrate/Acetoacetate 0.09 mmol/L (0.02-0.27)
[2023-03-13 15:41] LABS: Alanine Aminotransferase 60 U/L (6-35); Albumin Level 4.5 g/dL (3.5-5.1); Alkaline Phosphatase 95 U/L (38-126); Anion Gap 13 mmol/L (8-16); Aspartate Amino Transferase 70 U/L (14-36); Bilirubin,Total 0.5 mg/dL (0.2-1.3); Blood Urea Nitrogen 11 mg/dL (7-17); Calcium 9.3 mg/dL (8.4-10.2); Carbon Dioxide 23 mmol/L (22-30); Chloride 98 mmol/L (98-107); Estimated CRCL calculation 133 ml/min; Estimated Glomerular Filt Rate > 60; Glucose 490 mg/dL (65-110); Magnesium 1.9 mg/dL (1.6-2.3); Phosphorus 3.8 mg/dL (2.5-4.5); Potassium 4.6 mmol/L (3.4-5.0); Sodium 134 mmol/L (137-145)
[2023-03-13 16:00] VITALS: BP 130/83; PULSE 82; RESP 18; O2SAT 100
[2023-03-13 17:30] VITALS: BP 131/83; PULSE 80; RESP 16; TEMP 36.3; O2SAT 99
[2023-03-13] MEDS: ONDANSETRON INJ 4 MG/2 ML VIAL IV PUSH (17:31)
[2023-03-13 18:58] LABS: Glucose Point of Care 235 mg/dl (65-105)
[2023-03-13 19:23] VITALS: BP 133/89; PULSE 93; RESP 18; O2SAT 100
== END 2023-03-13 19:24 | disposition home or self-care (01) ==
PROVIDERS: Emergency Medicine; Emergency Provider Physician Assistant; PCP Physician Assistant
DX: E11.65 Type 2 diabetes mellitus with hyperglycemia (principal); N15.1 Renal and perinephric abscess; F90.9 Attention-deficit hyperactivity disorder, unspecified type; F31.9 Bipolar disorder, unspecified; Z79.4 Long term (current) use of insulin
CPT/HCPCS: 36415; 74160; 80053; 81001; 81025; 82010; 82948; 83735; 84100; 85025; 96361; 96374; 99284; J2405; J7030; Q9967

== ENCOUNTER 2023-04-04 21:12 | Emergency (ER) | payer OTHER, SELFPAY ==
[2023-04-04 21:23] VITALS: BP 142/86; PULSE 108; RESP 14; TEMP 36.7; O2SAT 100
== END 2023-04-04 23:59 | disposition left against medical advice (07) ==
PROVIDERS: PCP Physician Assistant
DX: L02.828 Furuncle of other sites (principal)
CPT/HCPCS: 99199

== ENCOUNTER 2023-04-23 18:59 | Emergency (ER) | payer OTHER, SELFPAY ==
[2023-04-23 19:20] VITALS: BP 118/74; PULSE 99; RESP 18; TEMP 36.3; O2SAT 98
--- NOTE | 2023-04-23 20:41 | ED.FEMALEGU ---
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 She also complains an itchy rash at her vulva. This has been about 3 days duration. The bumps on her mons pubis did have some scant drainage of pus has since stopped. She has a history of hidradenitis suppurativa under the left axilla. Denies dysuria, hematuria, urinary urgency/frequency. No fevers. LMP late March. Sexually active with 1 male partner in the past 3 months. No report of concern for STI. Hx of chlamydia that was treated approximately 2 years ago. Denies vaginal bleeding or discharge. She has occasionally had dyspareunia, though describes pain after intercourse lately, occuring occasionally. She though maybe she had a slight tear given some blood while wiping after intercourse a few times. Did have an episode of loose stool but denies other symptoms on ROS. ObGyn is Janice Davidson at [facility]. Related Data Home Medications Medication Instructions Recorded Confirmed aripiprazole 10 mg tablet 10 mg PO DAILY 03/05/23 03/05/23 clonidine HCl 0.2 mg tablet 0.2 mg PO HS 03/05/23 03/05/23 dextroamphetamine-amphetamine ER 20 mg PO DAILY 03/05/23 03/05/23 20 mg 24hr capsule,extend release gabapentin 100 mg capsule 100 mg PO TID 03/05/23 03/05/23 insulin detemir U-100 100 unit/mL 10 unit subcut BID 03/05/23 03/06/23 (3 mL) subcutaneous pen Allergies Allergy/AdvReac Type Severity Reaction Status Date / Time morphine Allergy Hives Verified 04/23/23 20:52 [facility] Past Medical History Medical History ADHD (attention deficit hyperactivity disorder) Bipolar disorder Chlamydia Treated (approx 2020) Diabetic peripheral neuropathy Hidradenitis suppurativa of left axilla ROSIE (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) Surgical History Surgical History No pertinent past surgical history Family History Family History Father Bipolar disorder Schizophrenia Heart failure Mother Age: 35 Schizophrenia Diabetes mellitus Hypertension Bipolar disorder COPD (chronic obstructive pulmonary disease) Chronic kidney disease Social History Social History Social History: She has been involved with her boyfriend for the last 2 years. She has lived with her boyfriend and his family for the last year. 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 She reports that she drinks 5-6 alcoholic beverages every couple of months. Code status: Full code Smoking status: Never smoker Alcohol intake: current Drinks per week: 3 Substance use: former Substance use type: marijuana Last use: 2019 Lack of Transportation: No Lack of Food: Never True Current Housing: I Have Housing Concerned About Future Housing: No Difficulty Paying Gas/Electric Bills: No Difficulty Paying for Meds: No Currently Unemployed: No Education: High School Diploma/GED Difficulty w/ Childcare or Family Care: No Spiritual care concerns: No Exam Const: General: healthy appearing, no acute distress and alert; No diaphoretic or ill appearing Nutritional Appearance: well nourished and obese Orientation/consciousness: patient oriented x3 Limitations: no limitations HENMT: Head: normal to inspection Other: gross auditory acuity intact Neck: Neck: normal visual inspection Resp: Effort & Inspection: normal respiratory effort Other: speaking in full sentences Cardio: Rate: regular rate GI: Inspection: non-distended GI Palp: Yes Soft to palpation and No Tenderness to
[2023-04-23 21:04] LABS: Appearance Urine Cloudy (Clear); Bacteria Urine None Seen /hpf; Bilirubin Urine Negative (Negative); Blood Urine Negative (Negative); Color Urine Yellow (Yellow); Glucose Urine UA 3+ mg/dL (Negative); Ketones Urine Negative (Negative); Leukocyte Esterase Ur Negative LEU/UL (Negative); Nitrate Urine Negative (Negative); Non Pathogenic Casts 0-2; Protein Urine Negative (Negative); Squamous Epithelial Cell Urine Occasional /hpf (Few); Urobilinogen Urine 0.2 mg/dL (<2.0); WBC Urine 0-5 /hpf; pH Urine 5.5 (5.0-9.0)
[2023-04-23 21:06] LABS: Add Urine Microscopic? YES; Specific Grav Ur 1.038 (1.001-1.035)
[2023-04-23 21:15] VITALS: BP 129/73; PULSE 100; RESP 20; O2SAT 100
[2023-04-23 22:16] LABS: Trichomonas Vag PCR NOT DETECTED (NOT DETECTE)
== END 2023-04-23 22:07 | disposition home or self-care (01) ==
PROVIDERS: Emergency Provider Student in an Organized Health Care Education/Training Program; PCP Physician Assistant
DX: L73.2 Hidradenitis suppurativa (principal); E11.42 Type 2 diabetes mellitus with diabetic polyneuropathy; F90.9 Attention-deficit hyperactivity disorder, unspecified type; F31.9 Bipolar disorder, unspecified; Z79.4 Long term (current) use of insulin
CPT/HCPCS: 81001; 81025; 87255; 87661; 99284

== ENCOUNTER 2023-05-01 15:28 | Emergency (ER) | payer OTHER, SELFPAY ==
[2023-05-01 15:29] VITALS: BP 127/70; PULSE 70; RESP 18; TEMP 36.4; O2SAT 100
--- NOTE | 2023-05-01 19:22 | ED.FEVER ---
HPI - Fever General Chief Complaint: Fever Stated Complaint: fever x2 days, diarrhea, chills, bump in buttock Time Seen by Provider: 05/01/23 19:22 History of Present Illness HPI Narrative: Patient is a 23-year-old female history of insulin-dependent type 2 diabetes here with diarrhea and a sore on her buttock. Patient notes that for the last 2 days she has been having multiple episodes of diarrhea associated with some abdominal cramping. She endorses an associated mild cough and nasal congestion. Patient noted that 2 days ago she had a fever, temperature at that time was 102 F. She took Tylenol at that time, has not been rechecking her temperature is unsure if she still has a fever. She does note some associated chills as well. Yesterday while using the restroom she did notice a boil on her right gluteus. She notes a history of prior abscesses, she has required incision and drainage in the past on an abscess in her abdominal wall and was noted that this was found to be MRSA. She notes her blood sugars have been running normal range at home. No known sick contacts. Related Data Home Medications Medication Instructions Recorded Confirmed aripiprazole 10 mg tablet 10 mg PO DAILY 03/05/23 03/05/23 clonidine HCl 0.2 mg tablet 0.2 mg PO HS 03/05/23 03/05/23 dextroamphetamine-amphetamine ER 20 mg PO DAILY 03/05/23 03/05/23 20 mg 24hr capsule,extend release gabapentin 100 mg capsule 100 mg PO TID 03/05/23 03/05/23 insulin detemir U-100 100 unit/mL 10 unit subcut BID 03/05/23 03/06/23 (3 mL) subcutaneous pen Allergies Allergy/AdvReac Type Severity Reaction Status Date / Time morphine Allergy Hives Verified 04/23/23 20:52 Review of Systems Review of Systems: All systems reviewed & are unremarkable except as noted in HPI and below PMFSH Past Medical History Medical History ADHD (attention deficit hyperactivity disorder) Bipolar disorder Chlamydia Treated (approx 2020) Diabetic peripheral neuropathy Hidradenitis suppurativa of left axilla ROSIE (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) Surgical History Surgical History No pertinent past surgical history Family History Family History Father Bipolar disorder Schizophrenia Heart failure Mother Age: 35 Schizophrenia Diabetes mellitus Hypertension Bipolar disorder COPD (chronic obstructive pulmonary disease) Chronic kidney disease Social History Social History Social History: She has been involved with her boyfriend for the last 2 years. She has lived with her boyfriend and his family for the last year. 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 She reports that she drinks 5-6 alcoholic beverages every couple of months. Code status: Full code Smoking status: Never smoker Alcohol intake: current Drinks per week: 3 Substance use: former Substance use type: marijuana Last use: 2020 Lack of Transportation: No Lack of Food: Never True Current Housing: I Have Housing Concerned About Future Housing: No Difficulty Paying Gas/Electric Bills: No Difficulty Paying for Meds: No Currently Unemployed: No Education: High School Diploma/GED Difficulty w/ Childcare or Family Care: No Spiritual care concerns: No Exam Narrative: GENERAL: Well-appearing, well-nourished, and in no acute distress. HEAD: Normocephalic, atraumatic. EYES: PERRLA and EOMI. ENT: Nares clear. Mucous membranes moist. NECK: Supple. CHEST: Clear to auscultation. No respiratory distress. HEART: Regular rate and rhythm. Normal peripheral pulses. ABDOMEN: Soft, nontender, nondistended. EXTREMITIES: Normal range of motion. No edema. SKIN: Warm, dry, 2 x 2 cm area of induration over the left mid gluteus. Does
[2023-05-01] MEDS: IBUPROFEN 600 MG TABLET PO (19:49)
[2023-05-01] MEDS: ACETAMINOPHEN 500 MG TABLET 1000 MG PO (19:49)
[2023-05-01 19:58] LABS: Glucose Point of Care 265 mg/dl (65-105)
[2023-05-01 20:00] LABS: Basophils Absolute Auto 0.1 K/mm3 (0.0-0.1); Basophils Percent Auto 0.4 % (0.2-1.2); Eosinophils Absolute Auto 0.2 K/mm3 (0-0.3); Eosinophils Percent Auto 1.3 % (0-4.4); Hemoglobin 15.3 g/dL (12.0-15.0); Immature Granulocyte Absolute 0.05 K/mm3 (0.00-0.031); Immature Granulocyte Percent A 0.4 % (0-0.5); Lymphocytes Absolute Auto 1.92 K/mm3 (0.9-3.2); Lymphocytes Percent Auto 16.2 % (18.3-44.2); Mean Corpuscular HGB Conc 33.3 g/dl (32-36); Mean Corpuscular Hemoglobin 26.8 pg (26-34); Mean Corpuscular Volume 80.6 fl (80-100); Mean Platelet Volume 11.6 fl (7.4-10.4); Monocytes Absolute Auto 0.7 K/mm3 (0.1-0.6); Monocytes Percent Auto 5.7 % (2.6-8.5); Platelet Count Result 279 k/mm3 (150-375); Red Blood Count 5.71 M/mm3 (4.2-5.4); Red Cell Distribution Width 13.4 % (11.5-14.5); White Blood Count 11.9 K/mm3 (4.5-10.0)
[2023-05-01 20:15] LABS: Appearance Urine Cloudy (Clear); Bacteria Urine None Seen /hpf; Bilirubin Urine Negative (Negative); Blood Urine 2+ (Negative); Color Urine Dark Yellow (Yellow); Glucose Urine UA 3+ mg/dL (Negative); Ketones Urine Trace mg/dL (Negative); Leukocyte Esterase Ur Negative LEU/UL (Negative); Need Manual Microscopic Reviewed; Nitrate Urine Negative (Negative); Non Pathogenic Casts 0-2; Protein Urine Trace mg/dL (Negative); RBC Urine 0-2 /hpf (0-2); Squamous Epithelial Cell Urine Many /hpf (Few); pH Urine 5.5 (5.0-9.0)
[2023-05-01 20:16] LABS: Add Urine Microscopic? YES; Specific Grav Ur 1.038 (1.001-1.035)
[2023-05-01 20:22] LABS: Alanine Aminotransferase 44 U/L (6-35); Albumin Level 4.3 g/dL (3.5-5.1); Alkaline Phosphatase 59 U/L (38-126); Anion Gap 9 mmol/L (8-16); Aspartate Amino Transferase 46 U/L (14-36); Bilirubin,Total 0.8 mg/dL (0.2-1.3); Blood Urea Nitrogen 10 mg/dL (7-17); Calcium 9.1 mg/dL (8.4-10.2); Carbon Dioxide 25 mmol/L (22-30); Chloride 100 mmol/L (98-107); Estimated CRCL calculation 191 ml/min; Estimated Glomerular Filt Rate > 60; Glucose 282 mg/dL (65-110); Potassium 4.3 mmol/L (3.4-5.0); Sodium 134 mmol/L (137-145)
[2023-05-01 20:46] LABS: Influenza A QL RT-PCR Negative (Negative); Influenza B QL RT-PCR Negative (Negative); RSV RNA, RT-PCR Negative (Negative); SARS-CoV-2 RNA PCR Negative (Negative)
[2023-05-01 22:25] VITALS: BP 115/72; PULSE 65; RESP 18; TEMP 36.4; O2SAT 99
== END 2023-05-01 22:27 | disposition home or self-care (01) ==
PROVIDERS: Emergency Provider Student in an Organized Health Care Education/Training Program; PCP Physician Assistant
DX: L03.317 Cellulitis of buttock (principal); R19.7 Diarrhea, unspecified; Z20.822 Contact with and (suspected) exposure to COVID-19; E11.42 Type 2 diabetes mellitus with diabetic polyneuropathy; F90.9 Attention-deficit hyperactivity disorder, unspecified type; F31.9 Bipolar disorder, unspecified; Z79.4 Long term (current) use of insulin
CPT/HCPCS: 10060; 36415; 80053; 81001; 81025; 82948; 85025; 87077; 87086; 87088; 87637; 99283; A9270

== ENCOUNTER 2023-05-04 11:16 | Emergency (ER) | payer OTHER, SELFPAY ==
[2023-05-04 11:32] VITALS: BP 130/89; PULSE 104; RESP 20; TEMP 36.3; O2SAT 100
--- NOTE | 2023-05-04 13:08 | ED.SKABFB ---
HPI - Skin/Abscess/Foreign Bdy General Chief complaint: Skin/Abscess/Foreign Body Stated complaint: ABSCESS TO R BUTTOCK Time Seen by Provider: 05/04/23 12:09 Source: patient, RN notes reviewed and old records reviewed Mode of arrival: ambulatory Limitations: no limitations History of Present Illness HPI narrative: This is a 23 year old female who presents for evaluation of right buttock abscess. Patient was evaluated in ER 2 days ago for an abscess. She states she had an I and D performed . She has had small amount of blood and pus drainage. She states last night she had increased pain. She reports having nausea and vomiting last night but not today. Her blood sugar has been controlled today. Related Data Home Medications Medication Instructions Recorded Confirmed aripiprazole 10 mg tablet 10 mg PO DAILY 03/05/23 03/05/23 clonidine HCl 0.2 mg tablet 0.2 mg PO HS 03/05/23 03/05/23 dextroamphetamine-amphetamine ER 20 mg PO DAILY 03/05/23 03/05/23 20 mg 24hr capsule,extend release gabapentin 100 mg capsule 100 mg PO TID 03/05/23 03/05/23 insulin detemir U-100 100 unit/mL 10 unit subcut BID 03/05/23 03/06/23 (3 mL) subcutaneous pen Allergies Allergy/AdvReac Type Severity Reaction Status Date / Time morphine Allergy Hives Verified 04/23/23 20:52 Review of Systems Constitutional: Constitutional: Denies weakness Cardiovascular: Cardiovascular: Denies syncope, Denies rapid heart rate, Denies irregular heart rhythm, Denies leg edema and Denies dyspnea Respiratory: Respiratory: Denies chest congestion, Denies hemoptysis, Denies excessive phlegm production and Denies dyspnea Gastrointestinal: Gastrointestinal: Denies abdominal pain, Denies hematochezia, Denies diarrhea, Reports nausea and Reports vomiting Genitourinary: Genitourinary: Denies hematuria and Denies dysuria Musculoskeletal: Musculoskeletal: Denies joint swelling, Denies loss of height and Denies muscle weakness Neurologic: Denies syncope, Denies focal weakness and Denies weakness PMFSH Past Medical History Medical History ADHD (attention deficit hyperactivity disorder) Bipolar disorder Chlamydia Treated (approx 2020) Diabetic peripheral neuropathy Hidradenitis suppurativa of left axilla ROSIE (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) Surgical History Surgical History No pertinent past surgical history Family History Family History Father Bipolar disorder Schizophrenia Heart failure Mother Age: 35 Schizophrenia Diabetes mellitus Hypertension Bipolar disorder COPD (chronic obstructive pulmonary disease) Chronic kidney disease Social History Social History Social History: She has been involved with her boyfriend for the last 2 years. She has lived with her boyfriend and his family for the last year. 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 She reports that she drinks 5-6 alcoholic beverages every couple of months. Code status: Full code Smoking status: Never smoker Alcohol intake: current Drinks per week: 3 Substance use: former Substance use type: marijuana Last use: 2019 Lack of Transportation: No Lack of Food: Never True Current Housing: I Have Housing Concerned About Future Housing: No Difficulty Paying Gas/Electric Bills: No Difficulty Paying for Meds: No Currently Unemployed: No Education: High School Diploma/GED Difficulty w/ Childcare or Family Care: No Spiritual care concerns: No Exam Const: General: healthy appearing, no acute distress and alert Nutritional Appearance: well nourished Orientation/consciousness: patient oriented x3 HENMT: Head: normal to inspection Mouth: Yes Normal oral and palatal mucosa present, Yes lip no
== END 2023-05-04 13:44 | disposition home or self-care (01) ==
PROVIDERS: Emergency Provider General Practice; PCP Physician Assistant
DX: L02.31 Cutaneous abscess of buttock (principal)
CPT/HCPCS: 99283

== ENCOUNTER 2023-05-18 14:00 | Emergency (ER) | payer OTHER, SELFPAY ==
--- NOTE | ~2023-05-18 | XR_ITS ---
EXAMINATION: XR tibia fibula RT 2V DATE: 05/18/2023 15:34 INDICATION: Right lower leg injury and pain. TECHNIQUE: 2 views of right tibia and fibula were obtained. COMPARISON: None. FINDINGS: Bone alignment is normal. No fracture. Joint spaces are normal. No knee joint effusion. IMPRESSION: 1. No fracture. Reviewed, dictated and finalized at location A. TENANCE JOURNEYMAN IMPRESSION: 1. No fracture.
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
[2023-05-18 14:06] VITALS: BP 137/85; PULSE 76; RESP 18; TEMP 36.1; O2SAT 100
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
[2023-05-18] MEDS: BACITRACIN OINTMENT 15 GM TUBE 1 APPLIC TOPICAL (15:47)
[2023-05-18] MEDS: KETOROLAC 30 MG/ML VIAL (*BKC) IM (15:47)
[2023-05-18] MEDS: methocarbamoL 750 MG TABLET PO (15:48)
[2023-05-18] MEDS: LIDOCAINE 5% PATCH 1 PATCH TRANSDERM (15:50)
== END 2023-05-18 16:30 | disposition home or self-care (01) ==
PROVIDERS: Emergency Provider Nurse Practitioner; PCP Physician Assistant
DX: S13.4XXA Sprain of ligaments of cervical spine, initial encounter (principal); S80.11XA Contusion of right lower leg, initial encounter; S80.811A Abrasion, right lower leg, initial encounter; R51.9 Headache, unspecified; F41.9 Anxiety disorder, unspecified; F90.9 Attention-deficit hyperactivity disorder, unspecified type; E11.42 Type 2 diabetes mellitus with diabetic polyneuropathy; F31.9 Bipolar disorder, unspecified; Z79.4 Long term (current) use of insulin; V49.40XA Driver injured in collision with unspecified motor vehicles in traffic accident, initial encounter
CPT/HCPCS: 72125; 73590; 96372; 99284; A9270; J1885

== ENCOUNTER 2023-06-01 06:37 | Emergency (ER) | payer OTHER, SELFPAY ==
[2023-06-01 06:42] VITALS: BP 132/78; PULSE 103; RESP 18; TEMP 36.4; O2SAT 97
[2023-06-01 06:56] VITALS: BP 129/80; PULSE 103; RESP 16; O2SAT 96
--- NOTE | 2023-06-01 07:13 | ED.GENADULT ---
HPI - General Adult General Chief complaint: Skin/Abscess/Foreign Body Stated complaint: skin infection on chin Time Seen by Provider: 06/01/23 06:55 History of Present Illness HPI narrative: 23-year-old female presenting to the emergency department for evaluation of an abscess to her chin. Patient reports 2 days ago she had hair on her chin that she plucked and patient states she has had increased redness and swelling since then. Related Data Home Medications Medication Instructions Recorded Confirmed aripiprazole 10 mg tablet 10 mg PO DAILY 03/05/23 03/05/23 clonidine HCl 0.2 mg tablet 0.2 mg PO HS 03/05/23 03/05/23 dextroamphetamine-amphetamine ER 20 mg PO DAILY 03/05/23 03/05/23 20 mg 24hr capsule,extend release gabapentin 100 mg capsule 100 mg PO TID 03/05/23 03/05/23 insulin detemir U-100 100 unit/mL 10 unit subcut BID 03/05/23 03/06/23 (3 mL) subcutaneous pen Allergies Allergy/AdvReac Type Severity Reaction Status Date / Time morphine Allergy Hives Verified 06/01/23 06:42 Review of Systems Review of Systems: All systems reviewed & are unremarkable except as noted in HPI and below PMFSH Past Medical History Medical History ADHD (attention deficit hyperactivity disorder) Bipolar disorder Chlamydia Treated (approx 2020) Diabetic peripheral neuropathy Hidradenitis suppurativa of left axilla ROSIE (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) Surgical History Surgical History No pertinent past surgical history Family History Family History Father Bipolar disorder Schizophrenia Heart failure Mother Age: 35 Schizophrenia Diabetes mellitus Hypertension Bipolar disorder COPD (chronic obstructive pulmonary disease) Chronic kidney disease Social History Social History Social History: She has been involved with her boyfriend for the last 2 years. She has lived with her boyfriend and his family for the last year. 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 She reports that she drinks 5-6 alcoholic beverages every couple of months. Code status: Full code Smoking status: Never smoker Alcohol intake: current Drinks per week: 3 Substance use: former Substance use type: marijuana Last use: 2019 Lack of Transportation: No Lack of Food: Never True Current Housing: I Have Housing Concerned About Future Housing: No Difficulty Paying Gas/Electric Bills: No Difficulty Paying for Meds: No Currently Unemployed: No Education: High School Diploma/GED Difficulty w/ Childcare or Family Care: No Spiritual care concerns: No Exam Narrative: APPEARANCE: Well appearing, no pain, no distress, well-nourished. HEAD: normocephalic, atraumatic. EYES: PERRLA/EOMI, conjunctivae clear. NOSE: Normal no drainage EARS:TMS clear with good light reflex. THROAT: Pharynx clear, no exudate. NECK: Supple. No adenopathy, no masses. RESPIRATORY: Airway patent, respirations nonlabored. Clear to auscultation bilaterally, no rales, rhonchi, wheezing. CARDIOVASCULAR: Regular rate and rhythm without murmurs rubs or gallops. ABDOMINAL: Soft, nontender, nondistended, normal bowel sounds MUSCULOSKELETAL: Moves all extremities. Strength/ROM intact, No edema, No calf tenderness. NEURO: Alert. Cranial nerves II through XII intact. Good gait. Good coordination SKIN: Chin erythema with no fluctuant Course Course Emergency Course: 23-year-old female presenting to the emergency department for evaluation abscess to her chin. No abscess amenable to drainage. Patient was started on antibiotics in the emergency department. Patient was updated on wound care and the importance of close follow-up with her primary care physician. Vital Signs Vital signs: Vital
[2023-06-01] MEDS: CLINDAMYCIN HCL 150 MG CAP 300 MG PO (07:19)
== END 2023-06-01 07:36 | disposition home or self-care (01) ==
LOC: ANHED 07:29
PROVIDERS: Emergency Provider Emergency Medicine; PCP Physician Assistant
DX: L03.211 Cellulitis of face (principal); E11.42 Type 2 diabetes mellitus with diabetic polyneuropathy; F90.9 Attention-deficit hyperactivity disorder, unspecified type; F31.9 Bipolar disorder, unspecified; Z79.4 Long term (current) use of insulin
CPT/HCPCS: 99283; A9270

== ENCOUNTER 2023-11-01 19:56 | Emergency (ER) | payer MEDICAID, SELFPAY ==
[2023-11-01 20:06] VITALS: BP 134/82; PULSE 102; RESP 21; TEMP 36.4; O2SAT 98
--- NOTE | 2023-11-01 20:21 | ED.SKABFB ---
HPI - Skin/Abscess/Foreign Bdy General Chief complaint: Skin/Abscess/Foreign Body Stated complaint: abscess under left armpit Time Seen by Provider: 11/01/23 20:05 History of Present Illness HPI narrative: 23-year-old female presents to emergency department with concerns for an abscess to her left axilla for multiple weeks. Patient states she knows area about 3 weeks ago. She went to her PCPs office and was told she had an ingrown hair which was removed. She was not started on any antibiotics. At that time she began developing small amounts of bloody drainage that has been persistent. She present today because she feels like abscess may have gotten larger. Denies fever, vomiting. She has had an abscess to this area with previously. States the area is not very painful, does feel discomfort when her shirt rubs against it. No abscesses to the right axilla. LMP 10/18/2023. Related Data Home Medications Medication Instructions Recorded Confirmed aripiprazole 10 mg tablet 10 mg PO DAILY 03/05/23 03/05/23 clonidine HCl 0.2 mg tablet 0.2 mg PO HS 03/05/23 03/05/23 dextroamphetamine-amphetamine ER 20 mg PO DAILY 03/05/23 03/05/23 20 mg 24hr capsule,extend release gabapentin 100 mg capsule 100 mg PO TID 03/05/23 03/05/23 insulin detemir U-100 100 unit/mL 10 unit subcut BID 03/05/23 03/06/23 (3 mL) subcutaneous pen Allergies Allergy/AdvReac Type Severity Reaction Status Date / Time morphine Allergy Hives Verified 06/01/23 06:42 Review of Systems Review of Systems: CONSTITUTIONAL: Denies fever, chills, or sweats. EYES: Denies visual changes, redness, or discharge. ENT: Denies rhinorrhea, congestion, sore throat, or otalgia. CARDIOVASCULAR: Denies chest pain, palpitations, or edema. RESPIRATORY: Denies cough or dyspnea. GASTROINTESTINAL: Denies abdominal pain, nausea, vomiting, or diarrhea. GENITOURINARY: Denies dysuria or hematuria. SKIN: See HPI MUSCULOSKELETAL: Denies back pain, joint pain, or myalgia. NEUROLOGIC: Denies headache, numbness, or weakness. PSYCHIATRIC: Denies anxiety or depression. [facility] Past Medical History Medical History ADHD (attention deficit hyperactivity disorder) Bipolar disorder Chlamydia Treated (approx 2020) Diabetic peripheral neuropathy Hidradenitis suppurativa of left axilla ROSIE (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) Surgical History Surgical History No pertinent past surgical history Family History Family History Father Bipolar disorder Schizophrenia Heart failure Mother Age: 36 Schizophrenia Diabetes mellitus Hypertension Bipolar disorder COPD (chronic obstructive pulmonary disease) Chronic kidney disease Social History Social History Social History: She has been involved with her boyfriend for the last 2 years. She has lived with her boyfriend and his family for the last year. 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 She reports that she drinks 5-6 alcoholic beverages every couple of months. Code status: Full code Smoking status: Never smoker Alcohol intake: current Drinks per week: 3 Substance use: former Substance use type: marijuana Last use: 2019 Lack of Transportation: No Lack of Food: Never True Current Housing: I Have Housing Concerned About Future Housing: No Difficulty Paying Gas/Electric Bills: No Difficulty Paying for Meds: No Currently Unemployed: No Education: High School Diploma/GED Difficulty w/ Childcare or Family Care: No Spiritual care concerns: No Exam Narrative: GENERAL: Well-appearing, well-nourished, and in no acute distress. HEAD: Normocephalic, atraumatic. NECK: Supple. CHEST: Clear to auscultation. No respiratory distress. HEART:
[2023-11-01] MEDS: DOXYCYCLINE HYCLATE 100 MG TABLET PO (20:46)
[2023-11-01 20:51] VITALS: BP 134/94; PULSE 98; RESP 15; O2SAT 100
== END 2023-11-01 20:52 | disposition home or self-care (01) ==
PROVIDERS: Emergency Provider Physician Assistant
DX: L73.2 Hidradenitis suppurativa (principal); E11.42 Type 2 diabetes mellitus with diabetic polyneuropathy; F90.9 Attention-deficit hyperactivity disorder, unspecified type; F31.9 Bipolar disorder, unspecified; Z79.4 Long term (current) use of insulin; Z79.899 Other long term (current) drug therapy
CPT/HCPCS: 99283; A9270

== ENCOUNTER 2024-01-05 03:31 | Emergency (ER) | payer OTHER, SELFPAY ==
--- NOTE | ~2024-01-05 | XR_ITS ---
Right foot Technique: AP, oblique, and lateral views were obtained. Clinical History: Injury Findings: No acute fracture or dislocation is seen. Probable old, healed fracture deformity of the fth proximal phalanx. Osseous alignment is anatomic. Joint spaces are preserved without erosive or de generative change. Soft tissues are unremarkable. Impression: No acute abnormality. Probable old, healed fracture deformity of the fifth proximal phalanx. Reviewed, dictated and finalized at location . Impression: No acute abnormality. Probable old, healed fracture deformity of the fifth prox imal phalanx.
[2024-01-05 03:38] VITALS: BP 133/82; PULSE 99; RESP 16; TEMP 36.3; O2SAT 99
[2024-01-05 05:17] VITALS: BP 147/85; PULSE 86; RESP 16; TEMP 36.7; O2SAT 100
[2024-01-05 06:29] VITALS: BP 142/85; PULSE 82; RESP 16; TEMP 36.8; O2SAT 98
[2024-01-05 07:15] VITALS: BP 126/79; PULSE 79; RESP 14; O2SAT 97
--- NOTE | 2024-01-05 07:44 | ED.LOWEXIN ---
HPI - Extremity Injury (Lower) General Chief Complaint: Extremity Injury, Lower Stated Complaint: ankle pain Time Seen by Provider: 01/05/24 07:05 History of Present Illness HPI Narrative: Patient is a 23-year-old female who presents the ER with right ankle pain. She stepped in a hole that her husky dog had dug in the backyard 3 days ago. She twisted her ankle. She has had pain with walking since then. She did not strike her head or have any other injury. She has pain along the anterior joint line. No swelling. No numbness or tingling. Related Data Home Medications Medication Instructions Recorded Confirmed aripiprazole 10 mg tablet 10 mg PO DAILY 03/05/23 03/05/23 clonidine HCl 0.2 mg tablet 0.2 mg PO HS 03/05/23 03/05/23 dextroamphetamine-amphetamine ER 20 mg PO DAILY 03/05/23 03/05/23 20 mg 24hr capsule,extend release gabapentin 100 mg capsule 100 mg PO TID 03/05/23 03/05/23 insulin detemir U-100 100 unit/mL 10 unit subcut BID 03/05/23 03/06/23 (3 mL) subcutaneous pen Allergies Allergy/AdvReac Type Severity Reaction Status Date / Time morphine Allergy Hives Verified 06/01/23 06:42 Review of Systems Constitutional: Constitutional: Reports no additional constitutional complaints Musculoskeletal: Musculoskeletal: Denies back pain, Reports arthralgias and Denies joint swelling Neurologic: Denies focal weakness and Denies numbness PMFSH Past Medical History Medical History ADHD (attention deficit hyperactivity disorder) Bipolar disorder Chlamydia Treated (approx 2020) Diabetic peripheral neuropathy Hidradenitis suppurativa of left axilla ROSIE (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) Surgical History Surgical History No pertinent past surgical history Family History Family History Father Bipolar disorder Schizophrenia Heart failure Mother Age: 36 Schizophrenia Diabetes mellitus Hypertension Bipolar disorder COPD (chronic obstructive pulmonary disease) Chronic kidney disease Social History Social History (Reviewed 11/01/23 @ 20:22 by RASHAWN Ladd Social History: She has been involved with her boyfriend for the last 2 years. She has lived with her boyfriend and his family for the last year. 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 She reports that she drinks 5-6 alcoholic beverages every couple of months. Code status: Full code Smoking status: Never smoker Alcohol intake: current Drinks per week: 3 Substance use: former Substance use type: marijuana Last use: 2019 Lack of Transportation: No Lack of Food: Never True Current Housing: I Have Housing Concerned About Future Housing: No Difficulty Paying Gas/Electric Bills: No Difficulty Paying for Meds: No Currently Unemployed: No Education: High School Diploma/GED Difficulty w/ Childcare or Family Care: No Spiritual care concerns: No Exam Narrative: GENERAL: Well-appearing, well-nourished, and in no acute distress. HEAD: Normocephalic, atraumatic. ENT: Mucous membranes moist. EXTREMITIES: Normal range of motion. No edema. Mild discomfort right anterior joint line. SKIN: Warm, dry, no rash. NEURO: Alert and oriented x3. PSYCH: Normal mood and affect. Course Vital Signs Vital signs: Vital Signs Temperature 97.3 F L 01/05/24 03:38 Pulse Rate 99 01/05/24 03:38 Respiratory Rate 16 01/05/24 03:38 Blood Pressure 133/82 01/05/24 03:38 Pulse Oximetry 99 01/05/24 03:38 Temperature 97.6 F 01/05/24 08:05 Pulse Rate 75 01/05/24 08:05 Respiratory Rate 14 01/05/24 08:05 Blood Pressure 136/92 H 01/05/24 08:05 Pulse Oximetry 97 01/05/24 08:05 MDM - Extremity Injury (Lower) MDM Narrative Medical decision making narrative: -Course: Kris
[2024-01-05 08:05] VITALS: BP 136/92; PULSE 75; RESP 14; TEMP 36.4; O2SAT 97
== END 2024-01-05 08:08 | disposition home or self-care (01) ==
PROVIDERS: Emergency Provider Emergency Medicine
DX: S93.601A Unspecified sprain of right foot, initial encounter (principal); E11.42 Type 2 diabetes mellitus with diabetic polyneuropathy; F90.9 Attention-deficit hyperactivity disorder, unspecified type; F31.9 Bipolar disorder, unspecified; Z79.4 Long term (current) use of insulin; Z79.899 Other long term (current) drug therapy; X50.9XXA Other and unspecified overexertion or strenuous movements or postures, initial encounter
CPT/HCPCS: 73630; 99283

== ENCOUNTER 2024-01-27 19:29 | Emergency (ER) | payer OTHER, SELFPAY ==
[2024-01-27 19:48] VITALS: BP 132/78; PULSE 100; RESP 20; TEMP 36.3; O2SAT 99
--- NOTE | 2024-01-28 04:38 | PC.NURSE ---
Patient comes to desk and states I am leaving, I have been waiting for 9 hours, I just want to go home. Patient made comments as she ambulated out of the ED with a steady gait. patient left before risks of leaving before being seen by a provider and benefits of staying to be evaluated. Patient marked as left without being seen triaged.
== END 2024-01-28 04:54 | disposition left against medical advice (07) ==
DX: R10.9 Unspecified abdominal pain (principal)
CPT/HCPCS: 99199

== ENCOUNTER 2024-03-29 23:54 | Emergency (ER) | payer OTHER, SELFPAY ==
[2024-03-29 23:57] VITALS: BP 146/76; PULSE 100; RESP 15; TEMP 36.4; O2SAT 100
[2024-03-30 00:28] LABS: BEDSIDEPREGUCG Negative (Negative)
[2024-03-30 01:09] LABS: Add Urine Microscopic? NO; Appearance Urine Clear (Clear); Bilirubin Urine Negative (Negative); Blood Urine Negative (Negative); Color Urine Yellow (Yellow); Glucose Urine UA 3+ mg/dL (Negative); Ketones Urine Trace mg/dL (Negative); Leukocyte Esterase Ur Negative LEU/UL (Negative); Nitrate Urine Negative (Negative); Protein Urine Negative (Negative); Specific Grav Ur 1.039 (1.001-1.035); pH Urine 6.5 (5.0-9.0)
[2024-03-30 01:11] LABS: Beta HCG Quantitative < 2.39 mIU/ML
--- NOTE | 2024-03-30 01:20 | ED.GENADULT ---
HPI - General Adult General Chief complaint: Unspecified Stated complaint: wants a test Time Seen by Provider: 03/30/24 00:26 Source: patient Mode of arrival: ambulatory Limitations: no limitations History of Present Illness HPI narrative: This is a 23-year-old female that presents to the emergency department for test. Reports she has not had a menstrual cycle in 2 months. She normally has regular menstrual cycles. She is not currently on control. Reports she has taken several home tests that have been negative. She has had some pelvic cramping and nausea. Denies fevers, dysuria, or hematuria. Related Data Home Medications Medication Instructions Recorded Confirmed aripiprazole 10 mg tablet 10 mg PO DAILY 03/05/23 03/05/23 clonidine HCl 0.2 mg tablet 0.2 mg PO HS 03/05/23 03/05/23 dextroamphetamine-amphetamine ER 20 mg PO DAILY 03/05/23 03/05/23 20 mg 24hr capsule,extend release gabapentin 100 mg capsule 100 mg PO TID 03/05/23 03/05/23 insulin detemir U-100 100 unit/mL 10 unit subcut BID 03/05/23 03/06/23 (3 mL) subcutaneous pen Allergies Allergy/AdvReac Type Severity Reaction Status Date / Time morphine Allergy Hives Verified 03/30/24 00:00 Review of Systems Review of Systems: CONSTITUTIONAL: Denies fever GASTROINTESTINAL: Reports pelvic cramping, nausea GENITOURINARY: Denies dysuria or hematuria. All systems reviewed & are unremarkable except as noted in HPI and below PMFSH Past Medical History Medical History ADHD (attention deficit hyperactivity disorder) Bipolar disorder Chlamydia Treated (approx 2020) Diabetic peripheral neuropathy Hidradenitis suppurativa of left axilla ROSIE (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) Surgical History Surgical History No pertinent past surgical history Family History Family History Father Bipolar disorder Schizophrenia Heart failure Mother Age: 36 Schizophrenia Diabetes mellitus Hypertension Bipolar disorder COPD (chronic obstructive pulmonary disease) Chronic kidney disease Social History Social History Social History: She has been involved with her boyfriend for the last 2 years. She has lived with her boyfriend and his family for the last year. 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 She reports that she drinks 5-6 alcoholic beverages every couple of months. Code status: Full code Smoking status: Never smoker Alcohol intake: current Drinks per week: 3 Substance use: former Substance use type: marijuana Last use: 2019 Lack of Transportation: No Lack of Food: Never True Current Housing: I Have Housing Concerned About Future Housing: No Difficulty Paying Gas/Electric Bills: No Difficulty Paying for Meds: No Currently Unemployed: No Education: High School Diploma/GED Difficulty w/ Childcare or Family Care: No Spiritual care concerns: No Exam Narrative: GENERAL: Well-appearing, well-nourished, and in no acute distress. HEAD: Normocephalic, atraumatic. EYES: EOMI. CHEST: No respiratory distress. HEART: Regular rate ABDOMEN: Soft, nontender, nondistended, normal active bowel sounds. No CVA tenderness EXTREMITIES: Normal range of motion. No edema. SKIN: Warm, dry, no rash. NEURO: No focal deficits. Alert and oriented x3. PSYCH: Normal mood and affect Course Course Emergency Course: Patient updated on workup and agrees with plan of care Vital Signs Vital signs: Vital Signs Temperature 97.5 F L 03/29/24 23:57 Pulse Rate 100 03/29/24 23:57 Respiratory Rate 15 03/29/24 23:57 Blood Pressure 146/76 H 03/29/24 23:57 Pulse Oximetry 100 03/29/24 23:57 Oxygen Delivery Room Air 03/29/24 23:57 Temperature 97.5 F L 03/29/24 23:57 Pulse Rate 100 03/29/24 23:57 Respiratory Rate 15 03/29/24 23:57 Blood Pressure 146/76 H 03/29/24 23:57 Pulse Oximetry 100 03/29/24 23:57 Oxygen Delivery Room Air 03/29/24 23:57 Medical Decision Making MDM Narrative Medical decision making narrative: patient presents to the emergency department for test. Reports she has not had a menstrual cycle in 2 months. quantitative beta hCG is negative. Urine without evidence of infection. Patient was updated on her workup. Instructed to have further follow-up with gynecology for abnormal menstrual cycles. She was given warnings to return to the ER Vital Signs Vital Signs: Vital Signs Temperature 97.5 F L 03/29/24 23:57 Pulse Rate 100 03/29/24 23:57 Respiratory Rate 15 03/29/24 23:57 Blood Pressure 146/76 H 03/29/24 23:57 Pulse Oximetry 100 03/29/24 23:57 Oxygen Delivery Room Air 03/29/24 23:57 Temperature 97.5 F L 03/29/24 23:57 Pulse Rate 100 03/29/24 23:57 Respiratory Rate 15 03/29/24 23:57 Blood Pressure 146/76 H 03/29/24 23:57 Pulse Oximetry 100 03/29/24 23:57 Oxygen Delivery Room Air 03/29/24 23:57 Lab Data Labs: Lab Results 03/30/24 03/30/24 03/30/24 Range/Units 00:27 00:41 01:02 Beta HCG, Quant < 2.39 mIU/ML Urine Color Yellow (Yellow) Urine Appearance Clear (Clear) Urine pH 6.5 (5.0-9.0) Ur Specific [place] 1.039 H (1.001-1.035) Urine Protein Negative (Negative) mg/dL Urine Glucose (UA) 3+ H (Negative) mg/dL Urine Ketones Trace H (Negative) mg/dL Ur Blood (Man) Negative (Negative) Urine Nitrate Negative (Negative) Urine Bilirubin Negative (Negative) Urine Urobilinogen 1.0 (<2.0) mg/dL Leukocyte Esterase Rfl Negative (Negative) CARLOS/UL POC Urine HCG, Qual Negative (Negative) Critical Care Time Critical Care Time Critical Care Time: No Discharge Plan Discharge Clinical Impression: Abnormal uterine bleeding Patient Disposition: Home, Self-Care Condition: Stable Instructions: Abnormal (Dysfunctional) Uterine Bleeding (ED) Additional Instructions: Return to the ER if you experience fever, abdominal pain with nausea and vomiting, you are unable to keep down liquids or solids, pain or burning with urination, blood in the urine or any other symptoms that are concerning to you 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 Prescriptions: No Action diclofenac sodium 50 mg tablet,delayed release (DR/EC) 50 mg PO TID PRN (Reason: pain) Qty: 30 0RF methocarbamol 750 mg tablet 750 mg PO Q6H PRN (Reason: muscle spasm) Qty: 30 0RF lidocaine 5 % adhesive patch,medicated 1 patch topical DAILY Qty: 15 0RF Rx Instructions: leave on most painful area for up to 12 hrs clindamycin HCl 300 mg capsule 300 mg PO Q6H 7 Days Qty: 28 0RF naproxen 375 mg tablet 375 mg PO BID Qty: 14 0RF clonidine HCl 0.2 mg tablet 0.2 mg PO HS dextroamphetamine-amphetamine 20 mg capsule,extended release 24hr 20 mg PO DAILY gabapentin 100 mg capsule 100 mg PO TID aripiprazole 10 mg tablet 10 mg PO DAILY insulin detemir U-100 100 unit/mL (3 mL) insulin pen 10 unit SUBCUT BID insulin aspart U-100 [Novolog U-100 Insulin aspart] 100 unit/mL Solution 10 unit subcut TIDWM 30 Days Qty: 9 0RF ondansetron 4 mg tablet,disintegrating 4 mg PO Q6H PRN (Reason: nausea and vomiting) Qty: 10 0RF hydrocodone-acetaminophen 5-325 mg tablet 1 tablet PO Q6H PRN (Reason: pain) Qty: 7 0RF doxycycline monohydrate 100 mg capsule 100 mg PO BID Qty: 14 0RF Follow-up/Referrals: Bobo Barnett MD [Physician] - UNKNOWN,DOCTOR [Primary Care Provider] -
== END 2024-03-30 02:34 | disposition home or self-care (01) ==
PROVIDERS: Emergency Provider Physician Assistant
DX: N93.9 Abnormal uterine and vaginal bleeding, unspecified (principal); E11.42 Type 2 diabetes mellitus with diabetic polyneuropathy; F90.9 Attention-deficit hyperactivity disorder, unspecified type; F31.9 Bipolar disorder, unspecified; Z79.899 Other long term (current) drug therapy; Z79.4 Long term (current) use of insulin
CPT/HCPCS: 36415; 81003; 81025; 84702; 99283

== ENCOUNTER 2024-04-10 12:57 | Emergency (ER) | payer OTHER, SELFPAY ==
[2024-04-10] VITALS (8 sets, daily range): BP systolic 131–159; BP diastolic 85–117; PULSE 83–92; RESP 10–25; TEMP 36.6; O2SAT 98–100
--- NOTE | ~2024-04-10 | CT_ITS ---
CT abdomen pelvis w con Ordering provider: Bladimir Romero PA-C History: 24 years Female with . R flank tenderness, suspect pyelo . Comparison: None. Technique: CT abdomen and pelvis with IV and without oral contrast. Automated exposure control and it erative reconstruction technique were employed. The dose-length product was 866.51 mGy-cm. 100 mL Omn ipaque 350 was given IV. Findings: VISUALIZED LOWER CHEST: Dependent atelectatic changes. UPPER ABDOMINAL ORGANS: Liver: Fat infiltration. Gallbladder: Normal. Spleen: Normal. Stomach/duodenum: Normal. Pancreas: Normal. Adrenals: Normal. Kidneys: Tiny stone in the left kidney upper pole. PELVIC ORGANS: The bladder shows slightly thickened wall more prominent anteriorly. Further evaluatio n advised. Uterus: Normal. Ruptured right ovarian follicle is noted.. BOWEL AND MESENTERY: Colon: No evidence of diverticulitis. Fecal material seen in the right side of the colon and in the t ransverse colon. Normal appendix. Small Bowel: Normal. No obstruction. Peritoneum/mesentery: No free air or free fluid. No mesenteric lymphadenopathy. RETROPERITONEUM: Normal aorta. No retroperitoneal lymphadenopathy. MUSCULOSKELETAL: Superficial soft tissues: The superficial soft tissues are normal. Bones: Normal spine. IMPRESSION: 1. No evidence of appendicitis, diverticulitis or intestinal obstruction. 2. Constipation. 3. Possible tiny stone in the left kidney upper pole. 4. Ruptured follicle in the right ovary. Reviewed, dictated and finalized at location [facility]. [facility]
[2024-04-10 13:23] LABS: BEDSIDEPREGUCG Negative (Negative)
[2024-04-10 13:25] LABS: Basophils Absolute Auto 0.1 K/mm3 (0.0-0.1); Basophils Percent Auto 0.5 % (0.2-1.2); Eosinophils Absolute Auto 0.2 K/mm3 (0-0.3); Eosinophils Percent Auto 1.4 % (0-4.4); Hematocrit 42.9 % (37.0-47.0); Hemoglobin 14.9 g/dL (12.0-15.0); Immature Granulocyte Absolute 0.06 K/mm3 (0.00-0.031); Immature Granulocyte Percent A 0.5 % (0-0.5); Lymphocytes Absolute Auto 1.35 K/mm3 (0.9-3.2); Lymphocytes Percent Auto 10.6 % (18.3-44.2); Mean Corpuscular HGB Conc 34.7 g/dl (32-36); Mean Corpuscular Hemoglobin 27.6 pg (26-34); Mean Corpuscular Volume 79.6 fl (80-100); Mean Platelet Volume 11.7 fl (7.4-10.4); Monocytes Absolute Auto 0.7 K/mm3 (0.1-0.6); Monocytes Percent Auto 5.7 % (2.6-8.5); Neutrophils Absolute Auto 10.4 K/mm3 (1.3-6.7); Neutrophils Percent Auto 81.3 % (45.5-73.1); Platelet Count Result 262 k/mm3 (150-375); Red Blood Count 5.39 M/mm3 (4.2-5.4); White Blood Count 12.8 K/mm3 (4.5-10.0)
[2024-04-10 13:34] LABS: Add Urine Microscopic? YES; Alanine Aminotransferase 54 U/L (6-35); Albumin Level 4.4 g/dL (3.5-5.1); Alkaline Phosphatase 99 U/L (38-126); Anion Gap 13 mmol/L (4-12); Appearance Urine Cloudy (Clear); Aspartate Amino Transferase 56 U/L (14-36); Bacteria Urine 2+ /hpf; Bilirubin Urine Negative (Negative); Bilirubin,Total 0.7 mg/dL (0.2-1.3); Blood Urea Nitrogen 12 mg/dL (7-17); Blood Urine 2+ (Negative); Carbon Dioxide 20 mmol/L (22-30); Chloride 101 mmol/L (98-107); Color Urine Yellow (Yellow); Estimated CRCL calculation 308 ml/min; Estimated Glomerular Filt Rate > 60; Glucose 338 mg/dL (65-110); Glucose Urine UA 3+ mg/dL (Negative); Ketones Urine 1+ mg/dL (Negative); Leukocyte Esterase Ur 1+ LEU/UL (Negative); Lipase 39 U/L (23-300); Need Manual Microscopic Reviewed; Nitrate Urine Negative (Negative); Non Pathogenic Casts 0-2; Potassium 4.4 mmol/L (3.4-5.0); Protein Urine 1+ mg/dL (Negative); RBC Urine 21-50 /hpf (0-2); Sodium 134 mmol/L (137-145); Specific Grav Ur 1.038 (1.001-1.035); Squamous Epithelial Cell Urine Moderate /hpf (Few); Urobilinogen Urine 0.2 mg/dL (<2.0); WBC Urine >100 /hpf (0-3); pH Urine 6.5 (5.0-9.0)
--- NOTE | 2024-04-10 13:48 | ED.ABDPAIN ---
HPI - Abdominal Pain General Chief Complaint: Abdominal Pain Stated Complaint: ABD Time Seen by Provider: 04/10/24 13:18 Source: patient Mode of arrival: ambulatory Limitations: no limitations History of Present Illness HPI narrative: This is a 24-year-old female with PMH of DM type 2, pyelonephritis, HS who presents to the ED via EMS from [place] today to be seen for lower abdominal/right flank pain. Also reports that today she started to develop some blurred vision and lightheadedness. States that she has had nausea with 2 episodes of vomiting and no hematemesis. The vomiting around 1100. Per care glucose for EMS 305, patient also got Zofran 4 mg and route. Patient reports pain is primarily through the right flank and right lower abdomen. Reports she has had pyelo in the past and it feels similar. 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 She takes insulin regimen, and reports only taking long-acting when she needs to as well as metformin. Related Data Home Medications Medication Instructions Recorded Confirmed aripiprazole 10 mg tablet 10 mg PO DAILY 03/05/23 03/05/23 clonidine HCl 0.2 mg tablet 0.2 mg PO HS 03/05/23 03/05/23 dextroamphetamine-amphetamine ER 20 mg PO DAILY 03/05/23 03/05/23 20 mg 24hr capsule,extend release gabapentin 100 mg capsule 100 mg PO TID 03/05/23 03/05/23 insulin detemir U-100 100 unit/mL 10 unit subcut BID 03/05/23 03/06/23 (3 mL) subcutaneous pen Allergies Allergy/AdvReac Type Severity Reaction Status Date / Time morphine Allergy Hives Verified 03/30/24 00:00 Review of Systems Review of Systems: All systems as dictated in HPI [facility] Past Medical History Medical History ADHD (attention deficit hyperactivity disorder) Bipolar disorder Chlamydia Treated (approx 2020) Diabetic peripheral neuropathy Hidradenitis suppurativa of left axilla ROSIE (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) Surgical History Surgical History No pertinent past surgical history Family History Family History Father Bipolar disorder Schizophrenia Heart failure Mother Age: 36 Schizophrenia Diabetes mellitus Hypertension Bipolar disorder COPD (chronic obstructive pulmonary disease) Chronic kidney disease Social History Social History Social History: She has been involved with her boyfriend for the last 2 years. She has lived with her boyfriend and his family for the last year. 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 She reports that she drinks 5-6 alcoholic beverages every couple of months. Code status: Full code Smoking status: Never smoker Alcohol intake: current Drinks per week: 3 Substance use: former Substance use type: marijuana Last use: 2019 Lack of Transportation: No Lack of Food: Never True Current Housing: I Have Housing Concerned About Future Housing: No Difficulty Paying Gas/Electric Bills: No Difficulty Paying for Meds: No Currently Unemployed: No Education: High School Diploma/GED Difficulty w/ Childcare or Family Care: No Spiritual care concerns: No Exam Narrative: GENERAL: Well-appearing, well-nourished, and in no acute distress. HEAD: Normocephalic, atraumatic. EYES: PERRLA and EOMI. ENT: Nares clear, no rhinorrhea or epistaxis. Mucous membranes moist. Oropharynx without tonsillar hypertrophy exudate or other lesions. NECK: Supple. No adenopathy or masses. CHEST: No respiratory distress. Clear to auscultation. No wheezes rales or rhonchi HEART: Regular rate and rhythm. No murmur heard. Normal peripheral pulses. ABDOMEN: Right flank tenderness present. Negative left flank tenderness. Soft, otherwise nontender, nondistended, normal active bowel sounds. Negative peritoneal signs MSK: Normal range of motion. No edema. SKIN: Warm, dry, no rash. NEURO: Alert and oriented x4. No focal deficits. PSYCH: Normal mood and affect. Course Vital Signs Vital signs: Vital Signs Temperature 97.9 F 04/10/24 12:54 Pulse Rate 91 04/10/24 12:54 Respiratory Rate 15 04/10/24 12:54 Blood Pressure 148/85 H 04/10/24 12:54 Pulse Oximetry 98 04/10/24 12:54 Oxygen Delivery Room Air 04/10/24 12:54 Temperature 97.9 F 04/10/24 12:54 Pulse Rate 92 04/10/24 13:05 Respiratory Rate 10 L 04/10/24 13:05 Blood Pressure 148/85 H 04/10/24 13:05 Pulse Oximetry 98 04/10/24 13:05 Oxygen Delivery Room Air 04/10/24 12:54 MDM - Abdominal Pain MDM Narrative Medical decision making narrative: This is a 24 yo female who presents to the ED for chief complaint of right flank pain and right abdominal pain beginning today along with nausea. Vitals are unremarkable. Blood sugar on arrival was 305. Exam does show a right flank tenderness. Lab work remarkable for elevated white count of 12.8. CMP initially showing slight anion gap elevation with slightly low bicarb. Does not present in florid DKA. Lactic acid slightly elevated 2.1. Urinalysis remarkable for 1+ leuks, greater than 100 whites and 21-50 rbc's with 2+ bacteria. Culture is pending. UA also remarkable for 3+ glucose, 1+ ketones, 1+ protein and high specific gravity. CT abdomen and pelvis with IV contrast: IMPRESSION: 1. No evidence of appendicitis, diverticulitis or intestinal obstruction. 2. Constipation. 3. Possible tiny stone in the left kidney upper pole. 4. Ruptured follicle in the right ovary.. Presentation consistent with dehydration, UTI and right ovarian cyst rupture. Suspect abdominal pain and flank pain mainly due to the ovarian cyst, however may be related to ascending urinary tract infection. Although there are nose concerning findings regarding pyelo on the CT scan. Pulses suspect the patient's diabetes has been relatively uncontrolled as of late, due to her being in between doctors. Strongly advised that she get in with endocrinology or PCP as soon as she can for a more regimented BG control plan. Patient was given large volume fluid resuscitation for the hyperglycemia and infection along with Rocephin. She feels improved with Zofran and has not required any pain medications. Chemistries have improved after fluids. Patient will be discharged in stable condition. Rx for cephalexin given. Supportive measures discussed and return precautions given. Patient is understanding and agreeable with plan for discharge with PCP follow-up. Lab Data 04/10/24 13:18 04/10/24 13:18 Labs: Lab Results 11/06/24 11/06/24 11/06/24 Range/Units 13:18 13:21 14:11 WBC 12.8 H (4.5-10.0) K/mm3 RBC 5.39 (4.2-5.4) M/mm3 Hgb 14.9 (12.0-15.0) g/dL Hct 42.9 (37.0-47.0) % MCV 79.6 L (80-100) fl MCH 27.6 (26-34) pg MCHC 34.7 (32-36) g/dl RDW 13.0 (11.5-14.5) % Plt Count 262 (150-375) k/mm3 MPV 11.7 H (7.4-10.4) fl Immature Gran % (Auto) 0.5 (0-0.5) % Neut % (Auto) 81.3 H (45.5-73.1) % Lymph % (Auto) 10.6 L (18.3-44.2) % [place] % (Auto) 5.7 (2.6-8.5) % Eos % (Auto) 1.4 (0-4.4) % Baso % (Auto) 0.5 (0.2-1.2) % Lymph # (Auto) 1.35 (0.9-3.2) K/mm3 [place] # (Auto) 0.7 H (0.1-0.6) K/mm3 Eos # (Auto) 0.2 (0-0.3) K/mm3 Baso # (Auto) 0.1 (0.0-0.1) K/mm3 Abs Immat Gran (auto) 0.06 H (0.00-0.031) K/mm3 Absolute Neuts (auto) 10.4 H (1.3-6.7) K/mm3 Absolute Nucleated RBC 0.000 (0.0-0.012) K/mm3 Nucleated RBC % 0.0 (0.0-0.2) % Sodium 134 L (137-145) mmol/L Potassium 4.4 (3.4-5.0) mmol/L Chloride 101 (98-107) mmol/L Carbon Dioxide 20 L (22-30) mmol/L Anion Gap 13 H (4-12) mmol/L BUN 12 (7-17) mg/dL Creatinine 0.40 L (0.7-1.0) mg/dL Estim Creat Clear Calc 308 ml/min Estimated GFR > 60 (59 - ) Glucose 338 H (65-110) mg/dL Lactic Acid 2.1 H (0.7-2.0) mmol/L Calcium 9.0 (8.4-10.2) mg/dL Total Bilirubin 0.7 (0.2-1.3) mg/dL AST 56 H (14-36) U/L ALT 54 H (6-35) U/L Alkaline Phosphatase 99 (38-126) U/L Total Protein 8.0 (6.3-8.2) g/dL Albumin 4.4 (3.5-5.1) g/dL Lipase 39 (23-300) U/L Urine Color Yellow (Yellow) Urine Appearance Cloudy H (Clear) Urine pH 6.5 (5.0-9.0) Ur Specific [place] 1.038 H (1.001-1.035) Urine Protein 1+ H (Negative) mg/dL Urine Glucose (UA) 3+ H (Negative) mg/dL Urine Ketones 1+ H (Negative) mg/dL Ur Blood (Man) 2+ H (Negative) Urine Nitrate Negative (Negative) Urine Bilirubin Negative (Negative) Urine Urobilinogen 0.2 (<2.0) mg/dL Add Ur Microanalysis Reviewed Leukocyte Esterase Rfl 1+ H (Negative) CARLOS/UL Urine RBC 21-50 H (0-2) /hpf Urine WBC >100 H (0-3) /hpf Ur Squamous Epith Cells Moderate (Few) /hpf Urine Bacteria 2+ H /hpf Urine Casts 0-2 POC Urine HCG, Qual Negative (Negative) 04/10/24 Range/Units 16:38 WBC (4.5-10.0) K/mm3 RBC (4.2-5.4) M/mm3 Hgb (12.0-15.0) g/dL Hct (37.0-47.0) % MCV (80-100) fl MCH (26-34) pg MCHC (32-36) g/dl RDW (11.5-14.5) % Plt Count (150-375) k/mm3 MPV (7.4-10.4) fl Immature Gran % (Auto) (0-0.5) % Neut % (Auto) (45.5-73.1) % Lymph % (Auto) (18.3-44.2) % [place] % (Auto) (2.6-8.5) % Eos % (Auto) (0-4.4) % Baso % (Auto) (0.2-1.2) % Lymph # (Auto) (0.9-3.2) K/mm3 [place] # (Auto) (0.1-0.6) K/mm3 Eos # (Auto) (0-0.3) K/mm3 Baso # (Auto) (0.0-0.1) K/mm3 Abs Immat Gran (auto) (0.00-0.031) K/mm3 Absolute Neuts (auto) (1.3-6.7) K/mm3 Absolute Nucleated RBC (0.0-0.012) K/mm3 Nucleated RBC % (0.0-0.2) % Sodium Pending (137-145) mmol/L Potassium Pending (3.4-5.0) mmol/L Chloride Pending (98-107) mmol/L Carbon Dioxide Pending (22-30) mmol/L Anion Gap Pending (4-12) mmol/L BUN Pending (7-17) mg/dL Creatinine Pending (0.7-1.0) mg/dL Estim Creat Clear Calc Pending ml/min Estimated GFR Pending (59 - ) Glucose Pending (65-110) mg/dL Lactic Acid (0.7-2.0) mmol/L Calcium Pending (8.4-10.2) mg/dL Total Bilirubin (0.2-1.3) mg/dL AST (14-36) U/L ALT (6-35) U/L Alkaline Phosphatase (38-126) U/L Total Protein (6.3-8.2) g/dL Albumin (3.5-5.1) g/dL Lipase (23-300) U/L Urine Color (Yellow) Urine Appearance (Clear) Urine pH (5.0-9.0) Ur Specific [place] (1.001-1.035) Urine Protein (Negative) mg/dL Urine Glucose (UA) (Negative) mg/dL Urine Ketones (Negative) mg/dL Ur Blood (Man) (Negative) Urine Nitrate (Negative) Urine Bilirubin (Negative) Urine Urobilinogen (<2.0) mg/dL Add Ur Microanalysis Leukocyte Esterase Rfl (Negative) CARLOS/UL Urine RBC (0-2) /hpf Urine WBC (0-3) /hpf Ur Squamous Epith Cells (Few) /hpf Urine Bacteria /hpf Urine Casts POC Urine HCG, Qual (Negative) Imaging Data Radiologist's impression: ITS Impressions Abdomen/Pelvis CT 04/10/24 14:51 IMPRESSION: 1. No evidence of appendicitis, diverticulitis or intestinal obstruction. 2. Constipation. 3. Possible tiny stone in the left kidney upper pole. 4. Ruptured follicle in the right ovary. Discharge Plan Discharge Clinical Impression: UTI (urinary tract infection), Rupture of cyst of right ovary Patient Disposition: Home, Self-Care Condition: Stable Instructions: Antibiotic Form Additional Instructions: Exam and imaging today do show evidence of high blood sugar and UTI. There is also a ruptured right ovarian cyst. This should resolve on its own. Please take antibiotics for the UTI. Follow-up very closely with PCP or Endocrinology regarding blood sugar control. Pay close attention blood sugars at home as this will make it difficult to fight infections. If you have any new or worsening symptoms please return to the ER for further evaluation. Prescriptions: New cefdinir 300 mg capsule 300 mg PO Q12H 7 Days Qty: 14 0RF No Action diclofenac sodium 50 mg tablet,delayed release (DR/EC) 50 mg PO TID PRN (Reason: pain) Qty: 30 0RF methocarbamol 750 mg tablet 750 mg PO Q6H PRN (Reason: muscle spasm) Qty: 30 0RF lidocaine 5 % adhesive patch,medicated 1 patch topical DAILY Qty: 15 0RF Rx Instructions: leave on most painful area for up to 12 hrs clindamycin HCl 300 mg capsule 300 mg PO Q6H 7 Days Qty: 28 0RF naproxen 375 mg tablet 375 mg PO BID Qty: 14 0RF clonidine HCl 0.2 mg tablet 0.2 mg PO HS dextroamphetamine-amphetamine 20 mg capsule,extended release 24hr 20 mg PO DAILY gabapentin 100 mg capsule 100 mg PO TID aripiprazole 10 mg tablet 10 mg PO DAILY insulin detemir U-100 100 unit/mL (3 mL) insulin pen 10 unit SUBCUT BID insulin aspart U-100 [Novolog U-100 Insulin aspart] 100 unit/mL Solution 10 unit subcut TIDWM 30 Days Qty: 9 0RF ondansetron 4 mg tablet,disintegrating 4 mg PO Q6H PRN (Reason: nausea and vomiting) Qty: 10 0RF hydrocodone-acetaminophen 5-325 mg tablet 1 tablet PO Q6H PRN (Reason: pain) Qty: 7 0RF doxycycline monohydrate 100 mg capsule 100 mg PO BID Qty: 14 0RF Follow-up/Referrals: UNKNOWN,DOCTOR [Primary Care Provider] - Time of Disposition: 16:59
[2024-04-10] MEDS: LACTATED RINGERS 1,000 ML 999 ML IV CONT ×3 (13:52→15:00)
[2024-04-10 14:33] LABS: Lactic Acid Reflex 2.1 mmol/L (0.7-2.0)
[2024-04-10 16:52] LABS: Anion Gap 8 mmol/L (4-12); Blood Urea Nitrogen 9 mg/dL (7-17); Calcium 9.1 mg/dL (8.4-10.2); Carbon Dioxide 26 mmol/L (22-30); Chloride 101 mmol/L (98-107); Estimated CRCL calculation 197 ml/min; Estimated Glomerular Filt Rate > 60; Glucose 208 mg/dL (65-110); Potassium 4.6 mmol/L (3.4-5.0); Sodium 135 mmol/L (137-145)
[2024-04-10 17:18] LABS: Reflex Lactic Acid Yes or No Add Lactic
== END 2024-04-10 17:22 | disposition home or self-care (01) ==
PROVIDERS: Student in an Organized Health Care Education/Training Program; Emergency Provider Physician Assistant
DX: N39.0 Urinary tract infection, site not specified (principal); N83.01 Follicular cyst of right ovary; E11.42 Type 2 diabetes mellitus with diabetic polyneuropathy; F31.9 Bipolar disorder, unspecified; F90.9 Attention-deficit hyperactivity disorder, unspecified type; Z79.4 Long term (current) use of insulin; Z79.84 Long term (current) use of oral hypoglycemic drugs; Z79.899 Other long term (current) drug therapy
CPT/HCPCS: 36415; 74177; 80048; 80053; 81001; 81025; 83605; 83690; 85025; 87040; 96361; 96365; 99284; J0696; J7120; Q9967

== ENCOUNTER 2024-05-19 23:15 | Emergency (ER) | payer OTHER, SELFPAY ==
[2024-05-19 23:17] VITALS: BP 153/95; PULSE 103; RESP 16; TEMP 36.9; O2SAT 100
[2024-05-19 23:41] VITALS: BP 131/87; PULSE 88; RESP 18; O2SAT 100
[2024-05-19 23:49] LABS: BEDSIDEPREGUCG Negative (Negative)
[2024-05-19 23:51] LABS: Basophils Percent Auto 0.4 % (0.2-1.2); Eosinophils Absolute Auto 0.2 K/mm3 (0-0.3); Eosinophils Percent Auto 2.3 % (0-4.4); Hematocrit 41.1 % (37.0-47.0); Hemoglobin 14.2 g/dL (12.0-15.0); Immature Granulocyte Absolute 0.03 K/mm3 (0.00-0.031); Immature Granulocyte Percent A 0.4 % (0-0.5); Lymphocytes Absolute Auto 2.19 K/mm3 (0.9-3.2); Lymphocytes Percent Auto 28.3 % (18.3-44.2); Mean Corpuscular HGB Conc 34.5 g/dl (32-36); Mean Corpuscular Hemoglobin 27.4 pg (26-34); Mean Corpuscular Volume 79.2 fl (80-100); Mean Platelet Volume 11.5 fl (7.4-10.4); Monocytes Absolute Auto 0.5 K/mm3 (0.1-0.6); Monocytes Percent Auto 6.6 % (2.6-8.5); Neutrophils Absolute Auto 4.8 K/mm3 (1.3-6.7); Platelet Count Result 266 k/mm3 (150-375); Red Blood Count 5.19 M/mm3 (4.2-5.4); Red Cell Distribution Width 12.8 % (11.5-14.5); White Blood Count 7.8 K/mm3 (4.5-10.0)
[2024-05-19 23:54] LABS: Pregnancy On Board Control Positive; Urine Pregnancy Test Negative
[2024-05-20 00:07] LABS: Alanine Aminotransferase 43 U/L (6-35); Albumin Level 4.3 g/dL (3.5-5.1); Alkaline Phosphatase 80 U/L (38-126); Anion Gap 5 mmol/L (4-12); Aspartate Amino Transferase 39 U/L (14-36); Bilirubin,Total 0.6 mg/dL (0.2-1.3); Blood Urea Nitrogen 9 mg/dL (7-17); Calcium 9.5 mg/dL (8.4-10.2); Carbon Dioxide 26 mmol/L (22-30); Chloride 104 mmol/L (98-107); Estimated CRCL calculation 188 ml/min; Estimated Glomerular Filt Rate > 60; Glucose 279 mg/dL (65-110); Potassium 4.2 mmol/L (3.4-5.0); Sodium 135 mmol/L (137-145)
[2024-05-20 00:23] LABS: Beta HCG Quantitative 47.71 mIU/ML
[2024-05-20 00:32] LABS: Add Urine Microscopic? NO; Appearance Urine Clear (Clear); Bilirubin Urine Negative (Negative); Blood Urine Negative (Negative); Color Urine Yellow (Yellow); Glucose Urine UA 3+ mg/dL (Negative); Ketones Urine Trace mg/dL (Negative); Leukocyte Esterase Ur Negative LEU/UL (Negative); Nitrate Urine Negative (Negative); Protein Urine Negative (Negative); Specific Grav Ur 1.041 (1.001-1.035); Urobilinogen Urine 0.2 mg/dL (<2.0)
--- NOTE | 2024-05-20 00:43 | ED_ITS ---
HPI - General Adult General Chief complaint: Recheck/Abnormal Lab/Rx Stated complaint: x2 + test Time Seen by Provider: 05/19/24 23:25 History of Present Illness HPI narrative: Patient is a 24-year-old female presents to the ER for confirmation of test. She reports she took a test this morning and was positive. Patient reports she took a couple more tests that were also positive. She is requesting blood test to confirm . Patient denies any urinary symptoms, recent fevers, pain. She endorses very mild lower abdominal pain. Patient denies any concern for STDs. She reports her last menstrual period was on the 21 of April. 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 Patient has not been on any control recently. Related Data Home Medications ?Medication ?Instructions ?Recorded ?Confirmed ?Last Taken ?Type aripiprazole 10 mg tablet 10 mg PO DAILY 03/05/23 03/05/23 1 Day Ago History ~03/04/23 clonidine HCl 0.2 mg tablet 0.2 mg PO HS 03/05/23 03/05/23 1 Day Ago History ~03/04/23 dextroamphetamine-amphetamine ER 20 mg PO DAILY 03/05/23 03/05/23 1 Day Ago History 20 mg 24hr capsule,extend release ~03/04/23 gabapentin 100 mg capsule 100 mg PO TID 03/05/23 03/05/23 1 Day Ago History ~03/04/23 insulin detemir U-100 100 unit/mL 10 unit subcut BID 03/05/23 03/06/23 1 Day Ago History (3 mL) subcutaneous pen ~03/04/23 Allergies Allergy/AdvReac Type Severity Reaction Status Date / Time morphine Allergy Hives Verified 03/30/24 00:00 Review of Systems 2 Review of Systems: All systems reviewed & are unremarkable except as noted in HPI and below PMFSH Past Medical History Medical History Chlamydia Treated (approx 2020) Hidradenitis suppurativa of left axilla ADHD (attention deficit hyperactivity disorder) Bipolar disorder Diabetic peripheral neuropathy ROSIE (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) Surgical History Surgical History No pertinent past surgical history Family History Family History Father Bipolar disorder Schizophrenia Heart failure Mother Age: 36 Schizophrenia Diabetes mellitus Hypertension Bipolar disorder COPD (chronic obstructive pulmonary disease) Chronic kidney disease Social History Social History Social History: She has been involved with her boyfriend for the last 2 years. She has lived with her boyfriend and his family for the last year. 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 She reports that she drinks 5-6 alcoholic beverages every couple of months. Code status: Full code Smoking status: Never smoker Alcohol intake: current Drinks per week: 3 Substance use: former Substance use type: marijuana Last use: 2019 Lack of Transportation: No Lack of Food: Never True Current Housing: I Have Housing Concerned About Future Housing: No Difficulty Paying Gas/Electric Bills: No Difficulty Paying for Meds: No Currently Unemployed: No Education: High School Diploma/GED Difficulty w/ Childcare or Family Care: No Spiritual care concerns: No Exam 2 Narrative: GENERAL: Well appearing, well-nourished, non-toxic, in no acute distress. HEAD: Normocephalic, atraumatic. NECK: Supple. No adenopathy, no masses. RESPIRATORY: Airway patent, respirations nonlabored. Clear to auscultation bilaterally, no rales, rhonchi, wheezing. CARDIOVASCULAR: Regular rate and rhythm without murmurs, rubs, or gallops. Peripheral pulses 2+ and equal bilaterally. ABDOMINAL: Soft, mildly tender in bilateral lower quadrants, nondistended, no hepatosplenomegaly. Normoactive BS. MUSCULOSKELETAL: Moves all extremities. Strength/ROM intact without gross deformities. SKIN: Warm, dry, normal color. No rashes. NEURO: A&O X3. Speech clear. Cranial nerves II-XII grossly intact. Steady gait. No ataxic movements. PSYCHIATRIC: Appropriate mood and affect. Normal interaction. Course Vital Signs Vital signs: Vital Signs Temperature 36.9 C 05/19/24 23:17 Pulse Rate 103 H 05/19/24 23:17 Respiratory Rate 16 05/19/24 23:17 Blood Pressure 153/95 H 05/19/24 23:17 Pulse Oximetry 100 05/19/24 23:17 Oxygen Delivery Room Air 05/19/24 23:17 Temperature 36.9 C 05/19/24 23:17 Pulse Rate 88 05/19/24 23:41 Respiratory Rate 18 05/19/24 23:41 Blood Pressure 131/87 05/19/24 23:41 Pulse Oximetry 100 05/19/24 23:41 Oxygen Delivery Room Air 05/19/24 23:41 Medical Decision Making MDM Narrative Medical decision making narrative: Patient is a 24-year-old female presents to the ER for confirmation of test. She reports she took a test this morning and was positive. Patient reports she took a couple more tests that were also positive. She is requesting blood test to confirm . Patient denies any urinary symptoms, recent fevers, pain. She endorses very mild lower abdominal pain. Patient denies any concern for STDs. She reports her last menstrual period was on the 21 of April. 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 Patient has not been on any control recently. Labs Ordered: CBC, CMP, beta HCG, UA Imaging Ordered: None necessary Results: Patient's CBC was unremarkable. Her CMP indicated a sodium of 135, creatinine of 0.40, glucose of 279, AST of 39, ALT of 42. Patient's urinalysis indicates a glucose of 3+ and trace ketones. Her beta hCG levels were 47.71. Diagnosis: Elevated HCG levels Patient Education/Shared MDM: It was explained to patient that if she is indeed she is VERY EARLY in her and her levels are just above the normal limit. Education was provided that patient needs to follow-up with an OBGYN. The way to confirm her would be to have her hCG levels drawn in a couple of days. Patient endorsed very mild abdominal pain beginning of the examination but reports she not want or need any further evaluation. It was also explained patient that she is mildly dehydrated and was advised that she get 1 L normal saline IV bolus to help replenish the fluid in her body. She declined and reports she drinks a lot of water when she gets home. Patient is strongly advised to follow-up with her OBGYN. She verbalized understanding and is in agreement with plan. Differential Diagnosis Differential Diagnosis: threatened miscarriage, early , UTI Vital Signs Vital Signs: Vital Signs Temperature 36.9 C 05/19/24 23:17 Pulse Rate 103 H 05/19/24 23:17 Respiratory Rate 16 05/19/24 23:17 Blood Pressure 153/95 H 05/19/24 23:17 Pulse Oximetry 100 05/19/24 23:17 Oxygen Delivery Room Air 05/19/24 23:17 Temperature 36.9 C 05/19/24 23:17 Pulse Rate 88 05/19/24 23:41 Respiratory Rate 18 05/19/24 23:41 Blood Pressure 131/87 05/19/24 23:41 Pulse Oximetry 100 05/19/24 23:41 Oxygen Delivery Room Air 05/19/24 23:41 Lab Data Lab results reviewed: Yes I reviewed the patient's lab results. 05/19/24 23:44 05/19/24 23:44 Labs: Lab Results 05/19/24 05/19/24 Range/Units 23:44 23:47 WBC 7.8 (4.5-10.0) K/mm3 RBC 5.19 (4.2-5.4) M/mm3 Hgb 14.2 (12.0-15.0) g/dL Hct 41.1 (37.0-47.0) % MCV 79.2 L (80-100) fl MCH 27.4 (26-34) pg MCHC 34.5 (32-36) g/dl RDW 12.8 (11.5-14.5) % Plt Count 266 (150-375) k/mm3 MPV 11.5 H (7.4-10.4) fl Immature Gran % (Auto) 0.4 (0-0.5) % Neut % (Auto) 62.0 (45.5-73.1) % Lymph % (Auto) 28.3 (18.3-44.2) % Rice % (Auto) 6.6 (2.6-8.5) % Eos % (Auto) 2.3 (0-4.4) % Baso % (Auto) 0.4 (0.2-1.2) % Lymph # (Auto) 2.19 (0.9-3.2) K/mm3 Rice # (Auto) 0.5 (0.1-0.6) K/mm3 Eos # (Auto) 0.2 (0-0.3) K/mm3 Baso # (Auto) 0.0 (0.0-0.1) K/mm3 Abs Immat Gran (auto) 0.03 (0.00-0.031) K/mm3 Absolute Neuts (auto) 4.8 (1.3-6.7) K/mm3 Absolute Nucleated RBC 0.000 (0.0-0.012) K/mm3 Nucleated RBC % 0.0 (0.0-0.2) % Sodium 135 L (137-145) mmol/L Potassium 4.2 (3.4-5.0) mmol/L Chloride 104 (98-107) mmol/L Carbon Dioxide 26 (22-30) mmol/L Anion Gap 5 (4-12) mmol/L BUN 9 (7-17) mg/dL Creatinine 0.40 L (0.7-1.0) mg/dL Estim Creat Clear Calc 188 ml/min Estimated GFR > 60 (59 - ) Glucose 279 H (65-110) mg/dL Calcium 9.5 (8.4-10.2) mg/dL Total Bilirubin 0.6 (0.2-1.3) mg/dL AST 39 H (14-36) U/L ALT 43 H (6-35) U/L Alkaline Phosphatase 80 (38-126) U/L Total Protein 8.0 (6.3-8.2) g/dL Albumin 4.3 (3.5-5.1) g/dL Beta HCG, Quant 47.71 mIU/ML Urine Color Yellow (Yellow) Urine Appearance Clear (Clear) Urine pH 6.0 (5.0-9.0) Ur Specific Ola 1.041 H (1.001-1.035) Urine Protein Negative (Negative) mg/dL Urine Glucose (UA) 3+ H (Negative) mg/dL Urine Ketones Trace H (Negative) mg/dL Ur Blood (Man) Negative (Negative) Urine Nitrate Negative (Negative) Urine Bilirubin Negative (Negative) Urine Urobilinogen 0.2 (<2.0) mg/dL Leukocyte Esterase Rfl Negative (Negative) CARLOS/UL POC Urine HCG, Qual Negative (Negative) Urine Test Negative Discharge Plan Discharge Clinical Impression: Positive blood test, Positive home test, Mild dehydration Patient Disposition: Home, Self-Care Condition: Stable Instructions: Antibiotic Form Additional Instructions: Your hormone levels were very low and ER (47.71) which may indicate an early . Please return to the ER with any symptoms including vaginal bleeding, severe abdominal pain, urinary symptoms. Follow-up with your OBGYN is as possible. Please try to manage your blood sugars and stay hydrated. Patient Language: Chilean Prescriptions: No Action diclofenac sodium 50 mg tablet,delayed release (DR/EC) 50 mg PO TID PRN (Reason: pain) Qty: 30 0RF methocarbamol 750 mg tablet 750 mg PO Q6H PRN (Reason: muscle spasm) Qty: 30 0RF lidocaine 5 % adhesive patch,medicated 1 patch topical DAILY Qty: 15 0RF Rx Instructions: leave on most painful area for up to 12 hrs clindamycin HCl 300 mg capsule 300 mg PO Q6H 7 Days Qty: 28 0RF naproxen 375 mg tablet 375 mg PO BID Qty: 14 0RF clonidine HCl 0.2 mg tablet 0.2 mg PO HS dextroamphetamine-amphetamine 20 mg capsule,extended release 24hr 20 mg PO DAILY gabapentin 100 mg capsule 100 mg PO TID aripiprazole 10 mg tablet 10 mg PO DAILY insulin detemir U-100 100 unit/mL (3 mL) insulin pen 10 unit SUBCUT BID insulin aspart U-100 [Novolog U-100 Insulin aspart] 100 unit/mL Solution 10 unit subcut TIDWM 30 Days Qty: 9 0RF ondansetron 4 mg tablet,disintegrating 4 mg PO Q6H PRN (Reason: nausea and vomiting) Qty: 10 0RF hydrocodone-acetaminophen 5-325 mg tablet 1 tablet PO Q6H PRN (Reason: pain) Qty: 7 0RF doxycycline monohydrate 100 mg capsule 100 mg PO BID Qty: 14 0RF cefdinir 300 mg capsule 300 mg PO Q12H 7 Days Qty: 14 0RF Follow-up/Referrals: PHYSICIAN,INFORMATION TECHNOLOGY SPECIALIST [Primary Care Provider] - Time of Disposition: 00:57
[2024-05-20 01:13] VITALS: BP 121/73; PULSE 76; RESP 18; O2SAT 99
--- OUTSIDE RECORDS SUMMARY | 2024-05-25 06:26 | XMS_ITS | Encounter Summary ---
Author Organization [facility] Address [address] [place] [place] [address] Care Team Providers Care Marine Service Station Attendant Name Role Phone Michael Colorado MD Primary Care Provider Reason for Visit * Reason Onset Date Comments MEDICATION REFILL 04/20/2016 Encounter Details Date Type Department Care Team (Late st Contact Info) Description 04/20/2016 Refill [facility] Pediatrics - Endocrinology [address] [place] [id number] Deon Monteiro MD [address] [place] [phone] MEDICATION REFILL Social History Tobacco Use Types Packs/Day Years Used Date Smoking Tobacco: Never Sex and Gender Information Value Date Recorded Sex Assigned at Not on file Gender Identity Not on file Sexual Orientation Not on file documented as of this encounter Plan of Treatment Not on file documented as of this encounter Visit Diagnoses Not on filedocumented in this encounter Care Teams Marine Service Station Attendant Relationship Specialty Start Date End Date Michael Colorado MD [address] [facility] [address] [place] [address] PCP - General Pediatrics 04/20/16 documented as of this encounter
--- OUTSIDE RECORDS SUMMARY | 2024-05-25 06:26 | XMS_ITS | Encounter Summary ---
Author Organization [facility] Address [address] [place] [address] Care Team Providers Care Concrete Craftsman Name Role Phone Michael Colorado MD Primary Care Provider Reason for Visit * Reason Onset Date Comments MEDICATION REFILL 04/20/2016 Encounter Details Date Type Department Care Team (Late st Contact Info) Description 04/20/2016 Refill [facility] Pediatrics - Diabetes [address] [phone] Deon Monteiro MD [address] [place] [phone] MEDICATION REFILL Social History Tobacco Use Types Packs/Day Years Used Date Smoking Tobacco: Never Sex and Gender Information Value Date Recorded Sex Assigned at Not on file Gender Identity Not on file Sexual Orientation Not on file documented as of this encounter Plan of Treatment Not on file documented as of this encounter Visit Diagnoses Not on filedocumented in this encounter Care Teams Concrete Craftsman Relationship Specialty Start Date End Date Michael Colorado MD [address] [place] [address] PCP - General Pediatrics 04/20/16 documented as of this encounter
--- OUTSIDE RECORDS SUMMARY | 2024-05-25 06:26 | XMS_ITS | Encounter Summary ---
Author Organization [facility] Address [address] [place] [address] Care Team Providers Care Naturalist Name Role Phone Michael Colorado MD Primary Care Provider Reason for Visit * Reason Onset Date Comments Parent Return Call 04/25/2016 Mom returned your call from last week. Encounter Details Date Type Department Care Team (Late st Contact Info) Description 04/25/2016 Telephone [facility] Pediatrics - Endocrinology [address] [place] [address]. [place] [address] Deon Monteiro MD [address] [place] [phone] Parent Return Call (Mom returned your call from last week.) Social History Tobacco Use Types Packs/Day Years Used Date Smoking Tobacco: Never Sex and Gender Information Value Date Recorded Sex Assigned at Not on file Gender Identity Not on file Sexual Orientation Not on file documented as of this encounter Plan of Treatment Not on file documented as of this encounter Visit Diagnoses Not on filedocumented in this encounter Care Teams Naturalist Relationship Specialty Start Date End Date Michael Colorado MD [address] [place] [address] PCP - General Pediatrics 04/20/16 documented as of this encounter
--- OUTSIDE RECORDS SUMMARY | 2024-05-25 06:26 | XMS_ITS | Referral Summary ---
Author Organization [facility] Address [address] [place] [address] Care Team Providers Care Specification Writer Name Role Phone Michael Colorado MD Primary Care Provider [phone] Source Comments [facility],non-owned Affiliates and Associated Physician Practices is amultiple site organization consisting of ambulatory clinics and hospital sitesin [place], [place], [place] and [place]. This disclosure is being madepursuant to the Care Everywhere program and may not contain all information available regarding this patient. Last updated 18.[facility] Allergies Active Allergy Reactions Criticality Noted Date Comments Morphine 04/20/2016 Medications * Be aware that medications may not be up to date on this document. Alwaysverify current medications with the patient. Medication Sig Dispensed Refills Start Date End Date Status amphetamine-dextroam phetamine (ADDERALL) 30 MG tablet Take 30 mg by mouth every morning Active amphetamine-dextroam phetamine XR 24hr (ADDERALL XR) 15 MG capsule Take 15 mg by mouth every morning Active cloNIDine (CATAPRES) 0.1 MG tablet Take 0.1 mg by mouth 2 times daily Active albuterol HFA (PROVENTIL;VENTOLIN; PROAIR) 108 (90 BASE) MCG/ACT inhaler Inhale 2 Puffs by mouth every 6 hours as needed Active Fluticasone Propionate HFA (FLOVENT HFA IN) Active Blood Glucose Monitoring Suppl (TRUETRACK BLOOD GLUCOSE) W/DEVICE KIT Use as directed 1 Kit 1 04/20/2016 Active metFORMIN (GLUCOPHAGE) 500 MG tabletIndications:Co ntrolled type 2 diabetes mellitus without complication, without long-term current use of insulin (HCC) Take two 500 mg tablets in the am and pm with food. 120 Tab 5 02/02/2017 Active acetone,urine, (KETOSTIX) stripIndications:Con trolled type 2 diabetes mellitus without complication, without long-term current use of insulin (HCC) Use if blood sugar greater than 250 or in times of illness. 100 Strip 5 02/02/2017 Active MICROLET LANCETS MISCIndications:Cont rolled type 2 diabetes mellitus without complication, without long-term current use of insulin (HCC) Use 1 Each as directed Use to test blood sugar 2 -3 times daily. 100 Each 11 02/02/2017 Active blood glucose (TRUETRACK TEST) test stripIndications:Con trolled type 2 diabetes mellitus without complication, without long-term current use of insulin (HCC) Use to test blood sugar 2-3 times daily. 100 Strip 5 02/02/2017 Active Active Problems Problem Noted Date Diagnosed Date Urine test positive for microalbuminuria 017 Overview (02/02/2017): Apr 20, 2016 - spot urine microalbumin/creatinine: 36 mg/g (< 30) Jul 19, 2016 ([place], [place]): first morning voided urine microalbumin/creatinine: 23 ug/g (< 30) Assessment & Plan (06/29/2016 12:53 PM DYE TUB OPERATOR): ? Nonspecific vs early diabetic related microalbuminuria 1. Obtain first morning voided urine specimen for microalbumin/creatinine ratio (laboratory requisition given at the time of the office visit). 2. Expectant observation. 3. Return appointment in three months. Controlled type 2 diabetes bisi garcia without complication, without long-term current use of insulin 04/21/2016 Overview (06/29/2016): Apr 15, 2016 - [facility], [address] [place] [id number] Na 143 mmol/L, K 4.4 mmol/L, Cl 101 mmol/L, CO2 26 mmol/L, BUN 12 mg/dL, creatinine 0.60 mg/dL, glucose 190 mg/dL, calcium 10 mg/dL, alkaline phosphatase 85 U/L, SGOT (AST) 111 U/L, SGPT (ALT) 107 U/L, total protein 8.5 g/dL, albumin 4.9 g/dL, total bilirubin 0.6 mg/dL; WBC 8.2 K, hemoglobin 14.2 g/dL, hematocrit 43 %, ples 322 K. Hemoglobin A1c 6.9 %; cholesterol 261 mg/dL (100-170); triglyceride 925 mg/dL (140-199), HDL-cholesterol 41 mg/dL (< 150), LDL-cholesterol mg/dL (< 130) Dx (04/20/2016): Diabetes mellitus, type II; hemoglobin A1c 6.7 %; C-peptide 4.1 ng/dL (0.78-1.89), serum anti-PERLA < 5 U/mL (< 5.0), anti-insulin [IA-2 ab] < 0.8 U/mL (0.0-0.8), anti-islet cell IgG antibodies < 1:1 (< 1:1). Assessment & Plan (02/02/2017 5:25 PM CDT): 1. Metformin 1000 mg twice daily 2. Measure and record blood glucose level in logbook twice daily 3. Diet/exercise to promote weight loss 4. Return appointment in four months. Assessment & Plan (06/29/2016 12:48 PM DYE TUB OPERATOR): Good glycemic control. 1. Metformin 1000 mg bid 2. Home glucose monitoring twice daily. 3. Daily physical exercise (60 minutes daily) to promote weight loss 4. Return appointment in three months. Assessment & Plan (04/21/2016 4:13 PM DYE TUB OPERATOR): New onset, probably type II, diabetes mellitus. 1. Metformin 500 mg daily x 7 days, then 500 mg BID x 7 days, then 500 mg am & 1000 mg pm x 7 days, then 1000 mg BID 2. Home glucose monitoring twice daily (record in logbook). 3. Increase daily physical activity (30-60 minutes daily). 4. Outpatient dietary consultation (day of office visit). 5. Outpatient diabetes nurse educator consultation (day of office visit). 6. Return appointment in one month. Hypercholesterolemia 04/21/2016 Overview (02/02/2017): cholesterol 261 mg/dL (100-170); triglyceride 925 mg/dL (140-199), HDL- cholesterol 41 mg/dL (< 150), LDL-cholesterol mg/dL (< 130) Jul 19, 2016 - [facility] Cholesterol 151 mg/dL (140-199), triglycerides 235 mg/dL (< 150), HDL- cholesterol 37 mg/dL (> 40), LDL-cholesterol 67 (< 130) Assessment & Plan (02/03/2017 2:52 PM CDT): Normal fasting serum cholesterol level in July, 1. Dietary counseling - decrease concentrated sweets/fats Assessment & Plan (06/29/2016 12:45 PM DYE TUB OPERATOR): 1. Dietary counseling provided 2. Fasting lipid profile (laboratory requisition given at the time of the office visit). .3 Return appointment in three months. Assessment & Plan (04/21/2016 4:13 PM DYE TUB OPERATOR): ? Familial 1. Fasting lipid profile 2. Decrease dietary fat intake. Elevated transaminase level 04/21/2016 Overview (02/02/2017): Apr 15, 2016 - ALT 107 U/L Jul 19, 2016 - ALT 68 U/L (8-29); AST 34 U/L (14-37) Assessment & Plan (02/03/2017 2:51 PM CDT): 1. Repeat serum AST and ALT 2. Consider Pediatric Gastroenterology referral for persistent elevation (rule out BURGOS) Assessment & Plan (06/29/2016 12:46 PM DYE TUB OPERATOR): ? Nonspecific elevation vs evolving BURGOS 1. Repeat serum ALT level (laboratory requisition given at the time of the office visit). 3. Expectant observation. 3. Return appointment in three months. Assessment & Plan (04/21/2016 4:14 PM DYE TUB OPERATOR): ? BURGOS 1. Repeat serum AST/ALT in one month. 2. Consider referral to Pediatric Gastroenterology Resolved Problems Problem Noted Date Diagnosed Date Resolved Date Mixed hyperlipidemia 06/29/2016 017 Overview (06/29/2016): Apr 15, 2016 - Elevated blood sugar 04/20/2016 017 Social History Tobacco Use Types Packs/Day Years Used Date Smoking Tobacco: Never Sex and Gender Information Value Date Recorded Sex Assigned at Not on file Gender Identity Not on file Sexual Orientation Not on file Last Filed Vital Signs Vital Sign Reading Time Taken Comments Blood Pressure 120/64 02/02/2017 2:37 PM CDT Pulse - - Temperature - - Respiratory Rate - - Oxygen Saturation - - Inhaled Oxygen Concentration - - Weight 90 kg (198 lb 6.6 oz) 02/02/2017 2:37 PM CDT Height 165.5 cm (5' 5.16 ) 02/02/2017 2:37 PM CD T Body Mass Index 32.86 02/02/2017 2:37 PM CDT Plan of Treatment Not on file Procedures Procedure Name Priority Date/Time Associated Diagnosis Comments HEMOGLOBIN A1C - POCT (IP) BEAKER Routine 02/02/2017 2:46 PM CDT Controlled type 2 diabetes mellitus without complication, without long-term current use of insulin (HCC) MICROALB/CREAT RATIO URINE RANDOM PANEL Routine 02/02/2017 2:38 PM CDT Controlled type 2 diabetes mellitus without complication, without long-term current use of insulin (HCC) COMPREHENSIVE METABOLIC PANEL Routine 02/02/2017 2:38 PM CDT Controlled type 2 diabetes mellitus without complication, without long-term current use of insulin (HCC) from Last 3 Months or Most Recently Relevant to Health Maintenance Results * (ABNORMAL) HEMOGLOBIN A1C - POCT (IP) BEAKER (02/02/2017 2:46 PM CDT) Hemoglobin A1c POCT 6.8(A) 3.4 - 6.1 % [facility] POCT [facility] QC Verified Yes Yes [facility] PO CT TESTING Blood BLOOD SPECIMEN / Unknown 02/02/2017 2:46 PM CDT Deon Monteiro MD LAB - POINT OF CARE ORDERABLES Performing Organization Address [facility] de Phone Number [facility] [phone] * (ABNORMAL) MICROALB/CREAT RATIO URINE RANDOM PANEL (02/02/2017 2:38 PM CDT) Creatinine Urine 103.98 mg/dL 02/03/20 17 4:18 PM CDT [facility] Microalbumin Urine 3.3(H) <1.7 mg/dL 02/02/2017 4:18 PM CDT [facility] Microalbumin/Crea tinine Ratio 32(H) <30 mg/g 02/02/2017 4:18 PM T [facility] Urine URINE SPECIMEN OBTAINED BY CLEAN CATCH PROCEDURE / Unknown Collection / Unknown 02/02/2017 2:38 PM CDT 02/02/2017 3:10 PM CDT Deon Monteiro MD LAB - URINE CHEMISTR Y ORDERABLES Performing Organization Address [facility] de Phone Number [facility] [address] [place] [address] * (ABNORMAL) COMPREHENSIVE METABOLIC PANEL (02/02/2017 2:38 PM CDT) Glucose 208(H) 70 - 105 mg/dL 02/02/2017 4:07 PM T [facility] Sodium 136 136 - 145 mmol/L 02/02/2017 4:07 PM T [facility] Potassium 4.0 3.5 - 5.1 mmol/L 02/02/2017 4:07 PM T [facility] Chloride 101 98 - 107 mmol/L 02/02/2017 4:07 PM T [facility] CO2 26 20 - 28 mmol/L 02/02/2017 4:07 PM T [facility] Calcium 9.75 9.08 - 10.48 mg/dL 02/02/2017 4:07 PM T [facility] Anion Gap 9 5 - 20 mmol/L 02/02/2017 4:07 PM T [facility] BUN 14.0 5.3 - 18.7 mg/dL 02/02/2017 4:07 PM [facility] Creatinine 0.50(L) 0.61 - 1.07 mg/dL 02/02/2017 4:07 PM [facility] Alkaline Phosphatase 74(L) 100 - 390 U/L 02/02/2017 4:07 PM [facility] ALT 68(H) 8 - 65 U/L 02/02/2017 4:07 PM [facility] AST 48(H) 3 - 35 U/L 02/02/2017 4:07 PM [facility] Protein Total 8.1 6.3 - 8.2 gm/dL 02/02/2017 4:07 PM [facility] Albumin 4.5 3.3 - 4.9 gm/dL 02/02/2017 4:07 PM [facility] Bilirubin Total 0.3 0.3 - 1.2 mg/dL 02/02/2017 4:07 PM [facility] eGFR by MDRD mL/min/1. 73m2 02/02/2017 4:07 PM [facility] Comment: eGFR calculations are not performed for children under 18 years old. eGFR by MDRD mL/min/1. 73m2 02/02/2017 4:07 PM [facility] Comment: eGFR calculations are not performed for children under 18 years old. Blood BLOOD SPECIMEN / Unknown Venipuncture / Unknown 02/02/2017 2:38 PM CDT 02/02/2017 3:15 PM CDT Deon Monteiro MD LAB - CHEMISTRY NICOLA HARTMAN [facility] Organization Address City/State/[facility] Co de Phone Number [facility] [address] [place] [address] from Last 3 Months or Most Recently Relevant to Health Maintenance Care Teams Specification Writer Relationship Specialty Start Date End Date Michael Colorado MD [address] [facility] [address] [address] [place] [address] PCP - General Pediatrics 04/20/16
--- OUTSIDE RECORDS SUMMARY | 2024-05-25 06:26 | XMS_ITS | Encounter Summary ---
Author Organization [facility] Address [address] [place] [address] Care Team Providers Care Assistant Cross Country Coach Name Role Phone Michael Colorado MD Primary Care Provider [phone] Reason for Visit * Reason Onset Date Comments Results 04/22/2016 Encounter Details Date Type Department Care Team (Late st Contact Info) Description 04/22/2016 Telephone [facility] - Endocrinology [address] [place] [address]. [place] [address] Deon Monteiro MD [address] [place] [id number] Results Social History Tobacco Use Types Packs/Day Years Used Date Smoking Tobacco: Never Sex and Gender Information Value Date Recorded Sex Assigned at Not on file Gender Identity Not on file Sexual Orientation Not on file documented as of this encounter Miscellaneous Notes * Telephone Encounter - Deon Monteiro MD - 04/22/2016 1:13 PM CST Urine cx: group b strep - suspect pathogenic. Rec: tx with amox x 5 days; rx sent to local pharmacy; left taped message at home. Deon Monteiro MD RAIL CAR OPERATOR documented in this encounter Plan of Treatment Not on file documented as of this encounter Visit Diagnoses Diagnosis Acute cystitis without hematuria- Primary Acute cystitis documented in this encounter Care Teams Assistant Cross Country Coach Relationship Specialty Start Date End Date Michael Colorado MD [address] [facility] [address] [place] [address] PCP - General Pediatrics 04/20/16 documented as of this encounter
--- OUTSIDE RECORDS SUMMARY | 2024-05-25 06:26 | XMS_ITS | Patient Health Summary ---
Author Organization [facility] Address [address] [place] [address] Care Team Providers Care Ceramic Sprayer Name Role Phone Michael Colorado MD Primary Care Provider [phone] Note from [facility],non-owned Affiliates and Associated Physician Practices is amultiple site organization consisting of ambulatory clinics and hospital sitesin [place], [place], [place] and [place]. This disclosure is being madepursuant to the Care Everywhere program and may not contain all information available regarding this patient. Last updated 18.[facility] Allergies * Morphine Medications * Be aware that medications may not be up to date on this document. Alwaysverify current medications with the patient. * amphetamine-dextroamphetamine (ADDERALL) 30 MG tablet Take 30 mg by mouth every morning * amphetamine-dextroamphetamine XR 24hr (ADDERALL XR) 15 MG capsule Take 15 mg by mouth every morning * cloNIDine (CATAPRES) 0.1 MG tablet Take 0.1 mg by mouth 2 times daily * albuterol HFA (PROVENTIL;VENTOLIN;PROAIR) 108 (90 BASE) MCG/ACT inhaler Inhale 2 Puffs by mouth every 6 hours as needed * Fluticasone Propionate HFA (FLOVENT HFA IN) * Blood Glucose Monitoring Suppl (TRUETRACK BLOOD GLUCOSE) W/DEVICE KIT(Started 04/20/2016) Use as directed 1 refill remaining * metFORMIN (GLUCOPHAGE) 500 MG tablet(Started 02/02/2017) Take two 500 mg tablets in the am and pm with food. 5 refills remaining * acetone,urine, (KETOSTIX) strip(Started 02/02/2017) Use if blood sugar greater than 250 or in times of illness. 5 refills remaining * MICROLET LANCETS MISC(Started 02/02/2017) Use 1 Each as directed Use to test blood sugar 2 -3 times daily. 11 refills remaining * blood glucose (TRUETRACK TEST) test strip(Started 02/02/2017) Use to test blood sugar 2-3 times daily. 5 refills remaining Active Problems Problem Noted Date Diagnosed Date Urine test positive for microalbuminuria 017 Controlled type 2 diabetes m ellitus without complication, without long-term current use of insulin 04/21/2016 Hypercholesterolemia 04/21/2016 Elevated transaminase level 04/21/2016 Resolved Problems Problem Noted Date Diagnosed Date Resolved Date Mixed hyperlipidemia 06/29/2016 017 Elevated blood sugar 04/20/2016 017 Social History [...] Mass Index 32.86 02/02/2017 2:37 PM CDT Procedures * HEMOGLOBIN A1C - POCT (IP) BEAKER(Performed 02/02/2017) Performed for Controlled type 2 diabetes mellitus without complication, without long-term current use of insulin ([facility]) * MICROALB/CREAT RATIO URINE RANDOM PANEL(Performed 02/02/2017) Performed for Controlled type 2 diabetes mellitus without complication, without long-term current use of insulin ([facility]) * LIPID PROFILE(Performed 02/02/2017) Performed for Controlled type 2 diabetes mellitus without complication, without long-term current use of insulin ([facility]) * COMPREHENSIVE METABOLIC PANEL(Performed 02/02/2017) Performed for Controlled type 2 diabetes mellitus without complication, without long-term current use of insulin ([facility]) * LAB RESULTS ORDER(Performed 08/08/2016) * HEMOGLOBIN A1C - POCT (IP) BEAKER(Performed 06/28/2016) Performed for Controlled diabetes mellitus type 1 without complications ([facility]) * LAB RESULTS ORDER(Performed 04/27/2016) * URINE MICROSCOPIC ONLY(Performed 04/20/2016) Performed for Elevated blood sugar * URINALYSIS REFLEX TO MICROSCOPIC NO CULTURE(Performed 04/20/2016) Performed for Elevated blood sugar * MICROALB/CREAT RATIO URINE RANDOM PANEL(Performed 04/20/2016) Performed for Elevated blood sugar * C-PEPTIDE(Performed 04/20/2016) Performed for Elevated blood sugar * ISLET CELL ANTIBODY(Performed 04/20/2016) Performed for Elevated blood sugar * IA-2 ANTIBODY(Performed 04/20/2016) Performed for Elevated blood sugar * GLUTAMIC ACID DECARBOXYLASE (PERLA) ANTIBODY(Performed 04/20/2016) Performed for Elevated blood sugar * BASIC METABOLIC PANEL (CALCIUM TOTAL)(Performed 04/20/2016) Performed for Elevated blood sugar * CULTURE URINE(Performed 04/20/2016) Performed for Elevated blood sugar * HEMOGLOBIN A1C - POCT (IP) BEAKER(Performed 04/20/2016) Performed for Elevated blood sugar Results * (ABNORMAL) HEMOGLOBIN A1C - POCT (IP) BEAKER (02/02/2017 2:46 PM CDT) Only the most recent of3 resultswithin the time period is included. Hemoglobin A1c POCT 6.8(A) 3.4 - 6.1 % [facility] POCT TESTING QC Verified Yes Yes [facility] PO CT TESTING Blood BLOOD SPECIMEN / Unknown 02/02/2017 2:46 PM CDT Deon Monteiro MD LAB - POINT OF CARE ORDERABLES [facility] POCT TESTING [address] [phone] * (ABNORMAL) MICROALB/CREAT RATIO URINE RANDOM PANEL (02/02/2017 2:38 PM CDT) Only the most recent of2 resultswithin the time period is included. Creatinine Urine 103.98 mg/dL 02/03/20 17 4:18 PM CDT [facility] Microalbumin Urine 3.3(H) <1.7 mg/dL 02/02/2017 4:18 PM [facility] Microalbumin/Crea tinine Ratio 32(H) <30 mg/g 02/02/2017 4:18 PM [facility] Urine URINE SPECIMEN OBTAINED BY CLEAN CATCH PROCEDURE / Unknown Collection / Unknown 02/02/2017 2:38 PM CDT 02/02/2017 3:10 PM CDT Deon Monteiro MD LAB - URINE CHEMISTR Y ORDERABLES [facility] [address] [place] [address] * (ABNORMAL) COMPREHENSIVE METABOLIC PANEL (02/02/2017 2:38 PM CDT) Glucose 208(H) 70 - 105 mg/dL 02/02/2017 4:07 PM [facility] Sodium 136 136 - 145 mmol/L 02/02/2017 4:07 PM [facility] Potassium 4.0 3.5 - 5.1 mmol/L 02/02/2017 4:07 PM [facility] Chloride 101 98 - 107 mmol/L 02/02/2017 4:07 PM [facility] CO2 26 20 - 28 mmol/L 02/02/2017 4:07 PM [facility] Calcium 9.75 9.08 - 10.48 mg/dL 02/02/2017 4:07 PM [facility] Anion Gap 9 5 - 20 mmol/L 02/02/2017 4:07 PM [facility] BUN 14.0 5.3 - 18.7 mg/dL 02/02/2017 4:07 PM [facility] Creatinine 0.50(L) 0.61 - 1.07 mg/dL 02/02/2017 4:07 PM [facility] Alkaline Phosphatase 74(L) 100 - 390 U/L 02/02/2017 4:07 PM [facility] ALT 68(H) 8 - 65 U/L 02/02/2017 4:07 PM [facility] AST 48(H) 3 - 35 U/L 02/02/2017 4:07 PM [facility] Protein Total 8.1 6.3 - 8.2 gm/dL 02/02/2017 4:07 PM T [facility] Albumin 4.5 3.3 - 4.9 gm/dL 02/02/2017 4:07 PM T [facility] Bilirubin Total 0.3 0.3 - 1.2 mg/dL 02/02/2017 4:07 PM [facility] eGFR by MDRD mL/min/1. 73m2 02/02/2017 4:07 PM [facility] Comment: eGFR calculations are not performed for children under 18 years old. eGFR by MDRD mL/min/1. 73m2 02/02/2017 4:07 PM [facility] Comment: eGFR calculations are not performed for children under 18 years old. Blood BLOOD SPECIMEN / Unknown Venipuncture / Unknown 02/02/2017 2:38 PM CDT 02/02/2017 3:15 PM CDT Deon Monteiro MD LAB - CHEMISTRY NICOLA HARTMAN [facility] Organization Address City/State/[facility] Phone Number [facility] [address] [place] [address] * (ABNORMAL) LIPID PROFILE (02/02/2017 2:38 PM CDT) Cholesterol 226(H) <170 mg/dL 02/02/2017 4:08 PM [facility] Triglycerides 624(H) 46 - 227 mg/dL 02/02/2017 4:08 PM [facility] HDL Cholesterol 35(L) >40 mg/dL 7 4:08 PM [facility] LDL Calculated 66 <100 mg/dL 02/02/2017 4:08 PM [facility] Comment: Unable to calculate LDL due to elevated Triglycerides, please consider ordering a Direct LDL. VLDL Calculated 125(H) 12 - 38 mg/dL 02/02/2017 4:08 PM [facility] Comment: Unable to calculate LDL due to elevated Triglycerides, please consider ordering a Direct LDL. Chol HDL Ratio 6.5(H) <=5.0 02/02/2017 4:08 PM [facility] Blood BLOOD SPECIMEN / Unknown Venipuncture / Unknown 02/02/2017 2:38 PM CDT 02/02/2017 3:15 PM CDT Narrative [facility] - 02/02/2017 4:08 PM CDT Lipid Profile Comment: Adult references ranges are the recommendation of the [place] [employer] , for those patients >18 years old. Cholestrol ??LDL ?? Triglycerides ?HDL ?? -- ?-- ? -- ?<40 ?Low <170 ? <100 ?<150 ? Desirable 170-199 ?? 130-159 ? 150-199 ?Borderline High >200 ?160-189 ? 200-499 ?>60 ?High Risk factor status for Coronary Artery Disease is necessary to place these lab findings in perspective. Note: This test is for fasting patients only. A non-fasting state may alter some of these results. Deon Monteiro MD LAB - CHEMISTRY NICOLA HARTMAN [facility] Organization Address City/State/[facility] Co de Phone Number [facility] [facility] [place], [place] [id number] * LAB RESULTS ORDER (08/08/2016 10:54 PM BLUNGER) Only the most recent of2 resultswithin the time period is included. Narrative 08/08/2016 10:54 PM BLUNGER Ordered by an unspecified provider. Scanned Document LAB - THERAPEUTIC DR LINO MONITORING ORDERABLES * IA-2 ANTIBODY (04/20/2016 2:20 PM BLUNGER) [facility] Insulinoma Associated 2 Antibody <1.0 U/mL 04/24/2016 12:05 AM BLUNGER [facility] ([facility]) Comment: Reference Range: <1.0 ?Negative > or = 1.0 ??Positive Blood BLOOD SPECIMEN / Unknown Lab Venipuncture / Unknown 04/20/2016 2:20 PM BLUNGER 04/20/2016 3:22 PM BLUNGER Narrative [facility]) - 04/24/2016 12:05 AM BLUNGER Performed at: ??01 - [facility] [address] [place] [address] ??[id number] Accounts Payable Associate: Silvestre Shelley MD, Phone: ??[phone] Deon Monteiro MD LAB - SEROLOGY ORDER ELIOT Performing Organization Address City/[facility]/ZIP Co de Phone Number [facility]) [address] [place] [address] * ISLET CELL ANTIBODY (04/20/2016 2:20 PM BLUNGER) Antipancreatic Islet Cells Negative Neg:<1:1 04/21/2016 4:23 PM BLUNGER [facility]) Blood BLOOD SPECIMEN / Unknown Lab Venipuncture / Unknown 04/20/2016 2:20 PM BLUNGER 04/20/2016 3:22 PM BLUNGER Narrative [facility] ([facility]) - 04/21/2016 4:23 PM BLUNGER Performed at: ??01 - [facility] [address] ??[id number] Accounts Payable Associate: Anthony Greco MD, Phone: ??[phone] Deon Monteiro MD LAB - SEROLOGY ORDER ELIOT Performing Organization Address City/[facility]/ZIP Co de Phone Number [facility]) [address] [place] [address] * (ABNORMAL) URINALYSIS ROUTINE AUTO (04/20/2016 2:20 PM BLUNGER) Color UA Yellow Straw, Yellow, Dark Yellow 04/20/2016 3:48 PM [facility] Clarity UA Clear 04/20/2016 3:48 PM [facility] Specific [place] UA >=1.030 1.005 - 1.030 04/20/2016 3:48 PM [facility] pH UA 5.5 5.0 - 8.0 pH 04/20/2016 3:48 PM [facility] Protein UA Negative Negative 04/20/2016 3:48 PM [facility] Blood UA Negative Negative 04/20/2016 3:48 PM [facility] Leukocyte UA 1+(A) Negative 04/20/2016 3:48 PM [facility] Nitrite UA Negative Negative 04/20/2016 3:48 PM [facility] Glucose UA Negative Negative 04/20/2016 3:48 PM [facility] Ketone UA Negative Negative 04/20/2016 3:48 PM [facility] Bilirubin UA Negative Negative 04/20/2016 3:48 PM [facility] Urobilinogen UA 0.2 0.1 - 1.0 EU/dL 04/20/2016 3:48 PM [facility] Urine URINE SPECIMEN OBTAINED BY CLEAN CATCH PROCEDURE / Unknown Collection / Unknown 04/20/2016 2:20 PM BLUNGER 04/20/2016 2:37 PM BLUNGER Deon Monteiro MD LAB - URINALYSIS ORD ERABLES Performing Organization Address [facility] Co de Phone Number [facility] [address] [place] [phone] * (ABNORMAL) URINALYSIS MICROSCOPIC ONLY (04/20/2016 2:20 PM BLUNGER) RBC UA 2-5 0-2, 2-5 # /hpf 04/20/2016 5:28 PM [facility] WBC UA 20-50(A) 0-2, 2-5 # /hpf 04/20/2016 5:28 PM [facility] Bacteria UA 3+(A) None Seen, Trace 04/20/2016 5:28 PM [facility] Epithelial Cell UA 10-20(A) 0-2, 2-5 # /hpf 04/20/2016 5:28 PM [facility] Mucus UA 2+ 04/20/2016 5:28 PM [facility] Urine URINE SPECIMEN OBTAINED BY CLEAN CATCH PROCEDURE / Unknown Collection / Unknown 04/20/2016 2:20 PM BLUNGER 04/20/2016 2:37 PM BLUNGER Deon Monteiro MD LAB - URINALYSIS ORD ERABLES Performing Organization Address [facility]/ZIP Co de Phone Number [facility] [address] [place] [address] * (ABNORMAL) C-PEPTIDE (04/20/2016 2:20 PM BLUNGER) C-Peptide 4.10(H) 0.78 - 1.89 ng/mL 04/20/2016 6:[address] [facility] Blood BLOOD SPECIMEN / Unknown Lab Venipuncture / Unknown 04/20/2016 2:20 PM BLUNGER 04/20/2016 3:22 PM BLUNGER Deon Monteiro MD LAB - CHEMISTRY NICOLA HARTMAN Performing Organization Address City/[facility]/ZIP Co de Phone Number [facility] [address] [place] [address] * (ABNORMAL) CULTURE URINE (04/20/2016 2:20 PM BLUNGER) Pathologist [facility] Culture 50,000-100,000 CFU/mL Streptococcus agalactiae (Group B)(A) MIGUEL 04/22/2016 8:44 AM BLUNGER [facility] Urine URINE SPECIMEN OBTAINED BY CLEAN CATCH PROCEDURE / Unknown 04/20/2016 2:20 PM BLUNGER 04/20/2016 5:00 PM BLUNGER Narrative [facility] - 04/22/2016 8:44 AM BLUNGER Susceptibility testing of penicillin, other beta-lactam antibiotics, and vancomycin is not necessary for beta-hemolytic streptococci groups A,B,C and G because resistant strains have not been recognized. Deon Monteiro MD LAB - MICROBIOLOGY O RDERABLES [facility] [address] [phone] * PERLA AUTO ANTIBODY (04/20/2016 2:20 PM BLUNGER) PERLA-65 Antibody <5.0 0.0 - 5.0 U/mL 04/22/2016 4:20 PM BLUNGER [facility]) Blood BLOOD SPECIMEN / Unknown Lab Venipuncture / Unknown 04/20/2016 2:20 PM BLUNGER 04/20/2016 3:22 PM BLUNGER Narrative [facility] ([facility]) - 04/22/2016 4:20 PM BLUNGER Performed at: ??01 - [facility] [address] ??[id number] Accounts Payable Associate: Anthony Greco MD, Phone: ??[phone] Deon Monteiro MD LAB - SEROLOGY ORDER ELIOT [facility]) [address] [place] [address] * (ABNORMAL) BASIC METABOLIC PANEL (CALCIUM TOTAL) (04/20/2016 2:20 PM BLUNGER) Glucose 150(H) 70 - 105 mg/dL 04/20/2016 4:51 PM [facility] Sodium 138 136 - 145 mmol/L 04/20/2016 4:51 PM [facility] Potassium 4.4 3.5 - 5.1 mmol/L 04/20/2016 4:51 PM [facility] Chloride 105 98 - 107 mmol/L 04/20/2016 4:51 PM [facility] CO2 19(L) 20 - 28 mmol/L 04/20/2016 4:51 PM [facility] Calcium 10.40 9.08 - 10.48 mg/dL 04/20/2016 4:51 PM [facility] Anion Gap 14 5 - 20 mmol/L 04/20/2016 4:51 PM [facility] BUN 19.7(H) 5.3 - 18.7 mg/dL 04/20/2016 4:51 PM [facility] Creatinine 0.53(L) 0.61 - 1.07 mg/dL 04/20/2016 4:51 PM [facility] eGFR by MDRD mL/min/1. 73m2 04/20/2016 4:51 PM [facility] Comment: eGFR calculations are not performed for children under 18 years old. eGFR by MDRD mL/min/1. 73m2 04/20/2016 4:51 PM [facility] Comment: eGFR calculations are not performed for children under 18 years old. Blood BLOOD SPECIMEN / Unknown Lab Venipuncture / Unknown 04/20/2016 2:20 PM BLUNGER 04/20/2016 3:19 PM BLUNGER Deon Monteiro MD LAB - CHEMISTRY NICOLA Cortes Organization Address City/State/ZIP Co de Phone Number [facility] [address] [place] [place] [address] Care Teams Ceramic Sprayer Relationship Specialty Start Date End Date Michael Colorado MD [address] [place] [address] PCP - General Pediatrics 04/20/16
--- OUTSIDE RECORDS SUMMARY | 2024-05-25 06:26 | XMS_ITS | Encounter Summary ---
Author Organization [facility] Address [address] [place] [address] Care Team Providers Care Boiler Riveter Name Role Phone Michael Colorado MD Primary Care Provider [phone] Reason for Visit * Reason Comments Evaluation possible type 2 Encounter Details Date Type Department Care Team (Latest Contact Info) Description 04/20/2016 11:40 AM CADMIUM LIQUOR MAKER - 04/20/2016 2:12 PM [employer]QUOR MAKER Hospital Encounter [facility] Pediatric[facility] - Endocrinology [address] [place] [id number] Deon Monteiro MD [address] [place] [address] [phone] Discharge Disposition: Home or Self Care Social History Tobacco Use Types Packs/Day Years Used Date Smoking Tobacco: Never Sex and Gender Information Value Date Recorded Sex Assigned at Not on file Gender Identity Not on file Sexual Orientation Not on file documented as of this encounter Last Filed Vital Signs Vital Sign Reading Time Taken Comments Blood Pressure 126/68 04/20/2016 11:42 AM [employer]MIUM LIQUOR MAKER Pulse - - Temperature - - Respiratory Rate - - Oxygen Saturation - - Inhaled Oxygen Concentration - - Weight 89.1 kg (196 lb 6.9 oz) 04/20/20 16 11:42 AM CADMIUM LIQUOR MAKER Height 169.5 cm (5' 6.73 ) 04/20/2016 1 1:42 AM CADMIUM LIQUOR MAKER Body Mass Index 31.01 04/20/2016 11:42 AM [employer]MIUM LIQUOR MAKER Body Mass Index Percentile 96.27% 04/20 11:42 AM CADMIUM LIQUOR MAKER Growth Chart: CDC (Girls, 2- 20 Years) documented in this encounter Discharge Instructions * Patient Instructions* Bonnie Mullins, CARL - 04/20/2016 12:22 PM [employer] LIQUOR MAKER Please call with blood sugars in a week. Call to set up with [employer] for new meter and test strips. Start taking metformin at directed. Check blood sugar 4 times a day. Call the office if any further questions. Follow up appointment made. IUM LIQUOR MAKER documented in this encounter Medications at Time of Discharge Medication Sig Dispensed Refills Start Date End Date albuterol HFA (PROVENTIL;VENTOLIN;PROAI R) 108 (90 BASE) MCG/ACT inhaler Inhale 2 Puffs by mouth every 6 hours as needed amphetamine-dextroampheta mine (ADDERALL) 30 MG tablet Take 30 mg by mouth every morning amphetamine-dextroampheta mine XR 24hr (ADDERALL XR) 15 MG capsule Take 15 mg by mouth every morning cloNIDine (CATAPRES) 0.1 MG tablet Take 0.1 mg by mouth 2 times daily Fluticasone Propionate HFA (FLOVENT HFA IN) documented as of this encounter Progress Notes * Bonnie Mullins, CARL - 04/20/2016 1:54 PM CST I met with Lori and her mother in clinic on 04-19-16 for Type 2 education. I gave an explanation of what Type 2 is and gave handouts. Reviewed target range blood sugar (70-150) I gave handouts on the importance of starting an exercise routine and goals discussed. Lori currently has [employer] insurance and will need to contact [employer] to have a meter, test strips and lancets set to the home. I gave Lori a Contour Next meter in clinic until new supplies are sent. I showed Lori and her mother how to set up the meter and do a control test with the meter. I gave instruction on how to best obtain a blood sample. Mother performed finger poke and the bloodsugar was 146. I gave Lori a log book and showed her how to log her blood sugars. I discussed A1C and gave a handout. I also discussed ketostix and when to use them. I discussed metformin and gave handouts on metformin. I instructed mother on how to give metformin and gave her the schedule of gradually increasing the metformin. I asked that mother call in one week to review blood sugars and made a follow up appointment on 05-20-16. IUM LIQUOR MAKER * Deon Monteiro MD - 04/20/2016 11:57 AM CST Images from the original note were not included. Lori Landeros and her mother (contact telephone: [phone]) were seen in our outpatient Pediatric Endocrinology offices at [facility] in [place], [place] on 04/20/2016. She is a 16 y.o. 0 m.o. girl who is referred for evaluation of: Problem Diabetes Mellitus, New Onset Apr 15, [address] - [facility], [address] [place] [id number] Na 143 mmol/L, K 4.4 mmol/L, Cl [...] mg/dL (< 150), LDL-cholesterol mg/dL (< 130) Hypercholesterolemia Elevated Transaminase Level Present Illness Lori Landeros is a now 16 year old girl with a history of ADHD and bipolar disease found to have the above noted biochemical abnormalities recently at a routine well child care specialist visit. She acknowledges nocturia, frequent thirst and urination. She denies weight loss. She is without unexplained constitutional symptoms, including weakness, fatigue, lethargy, fever, rash, cough, vomiting, diarrhea, orheat/cold intolerance. PAST MEDICAL HISTORY History ??? Length: 19 (48.3 cm) Weight: 2240 g (4 lb 15 oz) ??? Delivery Method: ??? Gestation Age: 37 wks ??? Hospital Name: [facility] ??? Hospital Location: [place], [place] Past Medical History Diagnosis Date ??? ADHD (attention deficit hyperactivity disorder) ??? Asthma ??? Bipolar disorder Past Surgical History Procedure Laterality Date ??? Negative surgical history Family History Problem Relation Age of Onset ??? Asthma Mother ??? Hypertension Mother ??? Hypercholesterolemia Mother ??? Diabetes Maternal Grandmother ??? Diabetes Paternal Grandfather History Social History Narrative Parents are not together. Father, age 40's years, is not involved with Lori Landeros's care. Rosalia resides with her mother, age 36 years, and brothers, ages 8 & 18 yr, who are healthy. She is enrolled in the 10th grade and has received satisfactory nava in her coursework. Immunizations:UTD (not reviewed) Allergies Allergen Reactions ??? Morphine Regular Medications: ??? amphetamine-dextroamphetamine (ADDERALL) 30 MG tablet Take 30 mg by mouth every morning ??? amphetamine-dextroamphetamine XR 24hr (ADDERALL XR) 15 MG capsule Take 15 mg by mouth every morning ??? cloNIDine (CATAPRES) 0.1 MG tablet Take 0.1 mg by mouth 2 times daily ??? albuterol HFA (PROVENTIL;VENTOLIN;PROAIR) 108 (90 BASE) MCG/ACT inhaler Inhale 2 Puffs by mouthevery 6 hours as needed ??? Fluticasone Propionate HFA (FLOVENT HFA IN) ??? metFORMIN (GLUCOPHAGE) 500 MG tablet Start with 500 mg in the evening and increase as directed and discussed. To eventually take 1,000 bid ??? acetone,urine, (KETOSTIX) strip Use if blood sugar greater than 250 or in times of illness. ??? Blood Glucose Monitoring Suppl (TRUETRACK BLOOD GLUCOSE) W/DEVICE KIT Use as directed ??? blood glucose (TRUETRACK TEST) test strip Use to test blood sugar 2-3 times daily. ??? MICROLET LANCETS MISC Use 1 Each as directed Use to test blood sugar 2 -3 times daily. REVIEW OF SYSTEMS General: no weight loss Allergic/immunologic: no seasonal allergic symptoms Hematologic/lymphatic: no bruising Eyes: no visual changes ENT: no hearing problems Skin: no rash Respiratory: no cough, shortness of breath, or wheezing Cardiovascular: no palpitations Gastrointestinal: no heartburn Genitourinary: menses occur monthly; menarche occurred at age 11 yr; LMP two weeks ago; denies being sexually active Endocrine: no fatigue or temperature intolerance Musculoskeletal: no joint pain, warmth or swelling. Psychiatric: adhd Neurologic: no headaches or tremors Physical Examination: BP 126/68 Ht 1.695 m (5' 6.73 ) Wt 89.1 kg (196 lb 6.9 oz) LMP 04/06/2016 BMI 31.01 kg/m2 98 %ile (Z= 2.03) based on CDC 2-20 Years [id number]-[id number] data using vitals from 04/20/2016. 86 %ile(Z= 1.07) based on CDC 2-20 Years [id number] data using vitals from 04/20/2016. Body mass index is 31.01 kg/(m^2). 97 %ile (Z= 1.86) based on CDC 2-20 Years BMI-for-age data using vitals from 04/20/2016. No head circumference on file for this encounter. Body surface area is 2.05 meters squared. General: awake, alert, nondistressed-appearing, girl Head: normocephalic/atraumatic Eyes: Conjugate gaze; PERRLA with EOMI and sharp optic disc margins. Ears: Normally-shaped and positioned. Mouth: Hard/soft palates intact; Neck: supple without thyromegaly; + acanthosis nigricans Chest: symmetric and breath sounds are clear bilaterally. Heart: RRR without murmur. Abdomen: soft, without organomegaly. She has some abdominal discomfort with palpation of her lower abdomen and suprapubic area. No rebound or guarding Skin: normal texture/turgor without birthmarks Sexual maturation: breasts T.S. V and pubic hair T.S. V Extremities: Straight and without deformity. Neurological exam: Symmetric and nonfocal. Laboratory data: Hospital Encounter on 04/20/16 CULTURE URINE Result Value Ref Range Culture (Abnormal) 50,000-100,000 CFU/mL Streptococcus agalactiae (Group B) BASIC METABOLIC PANEL (CALCIUM TOTAL) Result Value Ref Range Glucose 150 (H) 70 - 105 mg/dL Sodium 138 136 - 145 mmol/L Potassium 4.4 3.5 - 5.1 mmol/L Chloride 105 98 - 107 mmol/L CO2 19 (L) 20 - 28 mmol/L Calcium 10.40 9.08 - 10.48 mg/dL Anion Gap 14 5 - 20 mmol/L BUN 19.7 (H) 5.3 - 18.7 mg/dL Creatinine 0.53 (L) 0.61 - 1.07 mg/dL eGFR MDRD mL/min/1.73m2 eGFR MDRD AFR AMR mL/min/1.73m2 ISLET CELL ANTIBODY Result Value Ref Range Antipancreatic Islet Cells Negative Neg:<1:1 C-PEPTIDE Result Value Ref Range C-Peptide 4.10 (H) 0.78 - 1.89 ng/mL MICROALB/CREAT RATIO URINE RANDOM PANEL Result Value Ref Range Creat Urine mg/dL 97.83 mg/dL Microalbumin Ur mg/dL 3.5 (H) <1.7 mg/dL Microalb/Creat Ratio 36 (H) <30 mg/g URINALYSIS ROUTINE AUTO Result Value Ref Range Color UA Yellow Straw, Yellow, Dark Yellow Clarity UA Clear Specific Point Lay UA >=1.030 1.005 - 1.030 pH UA 5.5 5.0 - 8.0 pH Protein UA Negative Negative Blood UA Negative Negative Leukocyte UA 1+ (Abnormal) Negative Nitrite UA Negative Negative Glucose UA Negative Negative Ketone UA Negative Negative Bili UA Negative Negative Urobilinogen UA 0.2 0.1 - 1.0 EU/dL URINALYSIS MICROSCOPIC ONLY Result Value Ref Range RBC UA 2-5 0-2, 2-5 # /hpf WBC UA 20-50 (Abnormal) 0-2, 2-5 # /hpf Bacteria UA 3+ (Abnormal) None Seen, Trace Epithelial Cell UA 10-20 (Abnormal) 0-2, 2-5 # /hpf Mucus 2+ HEMOGLOBIN A1C - POCT (IP) BEAKER Result Value Ref Range Hgb A1C POCT 6.7 (Abnormal) 3.4 - 6.1 % QC Verified Yes Yes Discussion: Lori Landeros is a 16 y.o. 0 m.o. girl referred for evaluation of an elevated hemoglobin A1c which remains elevated in our laboratory and consistent with diabetes mellitus, mostly likely type II. I sent routine screening serum antibodies to exclude her having a very early course of typeI diabetes mellitus. I recommended starting metformin and home glucose monitoring pending receipt of her diabetes antibodies. Of note, her serum AST and ALT and lipids are also elevated. I wonder if she may also have nonalcoholic steatohepatitis and some component of familial hypercholesterolemia. I recommended repeating these studies at her next visit with me in one month. I'm not sure about thecause of her abdomeinal pains. I suspect her urine culture reflects colonization rather than true infection. Lori and her mother me with out diabetes nurse educator and clinical wave solder offbearer to reviewmedication taking, side effects, home glucose monitoring, meal planning, portion size control, decreasing dietary fats and concentrated sweets to manage her weight. I had a long discussion with Lori and her mother about the importance of diet, exercise, medication taking, weight loss to manage her weight and diabetes and delay the onset of diabetes related complications. I would like to see herfor a return appointment in one month. I will follow-up with her in a couple of days with the finalresults of her urine culture. She may need to follow-up in your offices if the source of her abdomin al pain remains unclear. I reviewed my impression and recommendations with Lori Landeros's mother at the time of the office visit and she was in agreement. Assessment and Management Plan: Elevated transaminase level ? BURGOS 1. Repeat serum AST/ALT in one month. 2. Consider referral to Pediatric Gastroenterology Hypercholesterolemia ? Familial 1. Fasting lipid profile 2. Decrease dietary fat intake. Diabetes mellitus, new onset New onset, probably type II, diabetes mellitus. [...] visit). 6. Return appointment in one month. Follow Up: Return in about 1 month (around 05/20/2016). Of the 35 minutes spent with Lori, 25 were spent discussing diagnosis, diet, exercise, medicationtaking, home glucose monitoring, to manage weight and diabetes mellitus. Deon Monteiro MD [phone] CC: Michael Colorado MD [id number] [facility] / [place] [id number] Date: 04/20/2016 4:15 PM IUM LIQUOR MAKER documented in this encounter Consult Notes * Lucie Rm, RD/LD - 04/20/2016 1:37 PM CST Date: 04/20/2016 Diabetes Clinical Nutrition Assessment Lori Landeros is a 16 y.o. 0 m.o. female seen in clinic for new onset diabetes nutrition education Anthropometrics: Weight: 89.1 kg (196 lb 6.9 oz) 98 %ile (Z= 2.03) based on CDC 2-20 Years juftka-ber-hyx data usingvitals from 04/20/2016. Height: 169.5 cm (5' 6.73 ) 86 %ile (Z= 1.07) based on CDC 2-20 Years crokgtl-fxz-liy data using vitals from 04/20/2016. Body mass index is 31.01 kg/(m^2). 97 %ile (Z= 1.86) based on CDC 2-20 Years BMI-for-age data usingvitals from 04/20/2016. Recent Labs Component Name 04/20/16 1158 HGBA1C 6.7* Medications: Current Outpatient Prescriptions Medication ??? amphetamine-dextroamphetamine (ADDERALL) 30 MG tablet ??? amphetamine-dextroamphetamine XR 24hr (ADDERALL XR) 15 MG capsule ??? cloNIDine (CATAPRES) 0.1 MG tablet ??? albuterol HFA (PROVENTIL;VENTOLIN;PROAIR) 108 (90 BASE) MCG/ACT inhaler ??? Fluticasone Propionate HFA (FLOVENT HFA IN) Estimated Needs: KCAL: 1800 kcals/day (CHANDRIKA - 500) Food and nutrition related history: Met with parents and Lori for nutrition education to manage new diagnosis of type 2 diabetes. Dietary changes since initial notice of elevated readings include elimination of sugar sweetened beverages, cooking more vegetables at home and has incorporated a 20 minute exercise routine led by mom. Lori has breakfast and lunch from school which appear to be highly processed with added salt, sugar. Snacks at home include chips, popcorn and now sugar free drinks. Lori admits to greater than 4hours daily in front of a screen and parents admit to dining in front of TV. Mom enjoys cooking andall family members were attentive on how to make lifestyle changes to facilitate weight and BG control. Nutrition Care Process (1) Nutrition Diagnostic Statement: Food and nutrition knowledge deficit related to: no prior exposure to diabetes nutrition education as evidenced by : new onset diabetes Nutrition Diagnostic Statement Progress: New diagnostic statement established Nutrition Intervention Nutrition Education: Identified food sources of basic nutrients, its effect on blood glucose level and insulin resistance in BG control. Provided verbal and written information on My Plate information with emphasis on nutrient dense food choices and portion control using My Plate diagram. Instructed label reading highlighting following guidelines for fiber and fat: 0- 3 grams fat per 100calories; greater than 3 grams fiber per serving Discussed in detail concept of mindful eating Provided following handouts: My Plate, grocery list, Diabetes in Youth packet Nutrition Goal: Plate meals based on My Plate diagram: half plate with fresh fruit, fresh vegetables Include at least 3 different food groups with every meal Consume only zero calorie beverages, milk or yogurt with every meal Family to dine with minimal distractions, no TV while eating. Nutrition Goal: Biochemical data will be improved/normalized Nutrition Goal Progress: New goal established Lucie Rm RD/JR 45 minutes have been spent in providing nutrition counseling and education. Family verbalized understanding of the plan and anticipate compliance. Follow up with RD next clinic visit IUM LIQUOR MAKER documented in this encounter Plan of Treatment Not on file documented as of this encounter Procedures Procedure Name Priority Date/Time Associated Diagnosis Comments LAB RESULTS ORDER 04/27/2016 6:3 2 PM CADMIUM LIQUOR MAKER IA-2 ANTIBODY Routine 04/20/2016 2:20 PM CADMIUM LIQUOR MAKER Elevated blood sugar MICROALB/CREAT RATIO URINE RANDOM PANEL Routine 04/20/2016 2:20 PM CADMIUM LIQUOR MAKER Elevated blood sugar ISLET CELL ANTIBODY Routine 04/20/2016 2 :20 PM CADMIUM LIQUOR MAKER Elevated blood sugar URINALYSIS REFLEX TO MICROSCOPIC NO CULTURE Routine 04/20/2016 2:20 PM CADMIUM LIQUOR MAKER Elevated blood sugar URINE MICROSCOPIC ONLY Routine 6 2:20 PM CADMIUM LIQUOR MAKER Elevated blood sugar C-PEPTIDE Routine 04/20/2016 2:20 PM CADMIUM LIQUOR MAKER Elevated blood sugar CULTURE URINE Routine 04/20/2016 2:20 PM CADMIUM LIQUOR MAKER Elevated blood sugar GLUTAMIC ACID DECARBOXYLASE (PERLA) ANTIBODY Routine 04/20/2016 2:20 PM CADMIUM LIQUOR MAKER Elevated blood sugar BASIC METABOLIC PANEL (CALCIUM TOTAL) Routine 04/20/2016 2:20 PM CADMIUM LIQUOR MAKER Elevated blood sugar HEMOGLOBIN A1C - POCT (IP) BEAKER Routine 04/20/2016 11:58 AM CADMIUM LIQUOR MAKER Elevated blood sugar documented in this encounter Results * LAB RESULTS ORDER (04/27/2016 6:32 PM CADMIUM LIQUOR MAKER) Narrative 04/27/2016 6:32 PM CADMIUM LIQUOR MAKER Ordered by an unspecified provider. Scanned Document LAB - THERAPEUTIC DR LINO MONITORING ORDERABLES * (ABNORMAL) CULTURE URINE (04/20/2016 2:20 PM CADMIUM LIQUOR MAKER) Culture 50,000-100,000 CFU/mL Streptococcus agalactiae (Group B)(A) MIGUEL 04/22/2016 8:44 AM CADMIUM LIQUOR MAKER [facility] Urine URINE SPECIMEN OBTAINED BY CLEAN CATCH PROCEDURE / Unknown 04/20/2016 2:20 PM CADMIUM LIQUOR MAKER 04/20/2016 5:00 PM CADMIUM LIQUOR MAKER Narrative [facility] - 04/22/2016 8:44 AM CADMIUM LIQUOR MAKER Susceptibility testing of penicillin, other beta-lactam antibiotics, and vancomycin is not necessary for beta-hemolytic streptococci groups A,B,C and G because resistant strains have not been recognized. Deon Monteiro MD LAB - MICROBIOLOGY O RDERABLES [facility] [address] [place] [address], [facility] [phone] * (ABNORMAL) URINALYSIS MICROSCOPIC ONLY (04/20/2016 2:20 PM CADMIUM LIQUOR MAKER) RBC UA 2-5 0-2, 2-5 # /hpf 04/20/2016 5:28 PM [facility] WBC UA 20-50(A) 0-2, 2-5 # /hpf 04/20/2016 5:28 PM [facility] Bacteria UA 3+(A) None Seen, Trace 04/20/2016 5:28 PM [facility] Epithelial Cell UA 10-20(A) 0-2, 2-5 # /hpf 04/20/2016 5:28 PM [facility] Mucus UA 2+ 04/20/2016 5:28 PM [facility] Urine URINE SPECIMEN OBTAINED BY CLEAN CATCH PROCEDURE / Unknown Collection / Unknown 04/20/2016 2:20 PM CADMIUM LIQUOR MAKER 04/20/2016 2:37 PM [facility] Deon Monteiro MD LAB - URINALYSIS ORD ERABLES Performing Organization Address City/State/[facility] Co de Phone Number [facility] [address] [place] [phone] * (ABNORMAL) URINALYSIS ROUTINE AUTO (04/20/2016 2:20 PM CADMIUM LIQUOR MAKER) Color UA Yellow Straw, Yellow, Dark Yellow 04/20/2016 3:48 PM [facility] Clarity UA Clear 04/20/2016 3:48 PM [facility] Specific Point Lay UA >=1.030 1.005 - 1.030 04/20/2016 3:48 PM [facility] pH UA 5.5 5.0 - 8.0 pH 04/20/2016 3:48 PM [facility] Protein UA Negative Negative 04/20/2016 3:48 PM [facility] Blood UA Negative Negative 04/20/2016 3:48 PM [facility] Leukocyte UA 1+(A) Negative 04/20/2016 3:48 PM [facility] Nitrite UA Negative Negative 04/20/2016 3:48 PM [facility] Glucose UA Negative Negative 04/20/2016 3:48 PM [facility] Ketone UA Negative Negative 04/20/2016 3:48 PM [facility] Bilirubin UA Negative Negative 04/20/2016 3:48 PM CADMIUM LIQUOR MAKER [facility] Urobilinogen UA 0.2 0.1 - 1.0 EU/dL 04/20/2016 3:48 PM [facility] Urine URINE SPECIMEN OBTAINED BY CLEAN CATCH PROCEDURE / Unknown Collection / Unknown 04/20/2016 2:20 PM CADMIUM LIQUOR MAKER 04/20/2016 2:37 PM [employer]MIUM [employer]QUOR MAKER Deon Monteiro MD LAB - URINALYSIS ORD ERABLES Performing Organization Address [facility] de Phone Number [facility] [address] [place] [phone] * (ABNORMAL) MICROALB/CREAT RATIO URINE RANDOM PANEL (04/20/2016 2:20 PM CADMIUM LIQUOR MAKER) Creatinine Urine 97.83 mg/dL 04/20/20 5:28 PM [facility] Microalbumin Urine 3.5(H) <1.7 mg/dL 04/20/2016 5:28 PM [facility] Microalbumin/Crea tinine Ratio 36(H) <30 mg/g 04/20/2016 5:28 PM [facility] Urine URINE SPECIMEN OBTAINED BY CLEAN CATCH PROCEDURE / Unknown Collection / Unknown 04/20/2016 2:20 PM CADMIUM LIQUOR MAKER 04/20/2016 2:37 PM [employer]MIUM LIQUOR MAKER Deon Monteiro MD LAB - URINE CHEMISTR Y ORDERABLES Performing Organization Address [facility] de Phone Number [facility] [address] [place] [phone] * (ABNORMAL) C-PEPTIDE (04/20/2016 2:20 PM CADMIUM LIQUOR MAKER) C-Peptide 4.10(H) 0.78 - 1.89 ng/mL 04/20/2016 6:[address] [facility] Blood BLOOD SPECIMEN / Unknown Lab Venipuncture / Unknown 04/20/2016 2:20 PM CADMIUM LIQUOR MAKER 04/20/2016 3:22 PM CADMIUM LIQUOR MAKER Deon Monteiro MD LAB - CHEMISTRY ORDE RABLES [facility] [address] [place] [address] * ISLET CELL ANTIBODY (04/20/2016 2:20 PM CADMIUM LIQUOR MAKER) Antipancreatic Islet Cells Negative Neg:<1:1 04/21/2016 4:23 PM CADMIUM LIQUOR MAKER [facility] Blood BLOOD SPECIMEN / Unknown Lab Venipuncture / Unknown 04/20/2016 2:20 PM CADMIUM LIQUOR MAKER 04/20/2016 3:22 PM CADMIUM LIQUOR MAKER Narrative [facility] ([facility]) - 04/21/2016 4:23 PM CADMIUM LIQUOR MAKER Performed at: ??01 - [facility] [address] ??[id number] Spar Machine Operator: Anthony Greco MD, Phone: ??[phone] Deon Monteiro MD LAB - SEROLOGY ORDER ELIOT Performing Organization Address [facility] Co de Phone Number [facility] ([facility]) [address] [place] [address] * IA-2 ANTIBODY (04/20/2016 2:20 PM CADMIUM LIQUOR MAKER) Insulinoma Associated 2 Antibody <1.0 U/mL 04/24/2016 12:05 AM CADMIUM LIQUOR MAKER [facility]) Comment: Reference Range: <1.0 ?Negative > or = 1.0 ??Positive Blood BLOOD SPECIMEN / Unknown Lab Venipuncture / Unknown 04/20/2016 2:20 PM CADMIUM LIQUOR MAKER 04/20/2016 3:22 PM CADMIUM LIQUOR MAKER Narrative [facility] ([facility]) - 04/24/2016 12:05 AM CADMIUM LIQUOR MAKER Performed at: ??01 - [facility] [address] [place] [address] ??[id number] Spar Machine Operator: Silvestre Shelley MD, Phone: ??[phone] Deon Monteiro MD LAB - SEROLOGY ORDER ELIOT Performing Organization Address City/[facility]/ZIP Co de Phone Number [facility] ([facility]) [address] [place] [address] * PERLA AUTO ANTIBODY (04/20/2016 2:20 PM CADMIUM LIQUOR MAKER) [facility] PERLA-65 Antibody <5.0 0.0 - 5.0 U/mL 04/22/2016 4:20 PM CADMIUM LIQUOR MAKER [facility] ([facility]) Blood BLOOD SPECIMEN / Unknown Lab Venipuncture / Unknown 04/20/2016 2:20 PM CADMIUM LIQUOR MAKER 04/20/2016 3:22 PM CADMIUM LIQUOR MAKER Narrative [facility] ([facility]) - 04/22/2016 4:20 PM CADMIUM LIQUOR MAKER Performed at: ??01 - [facility] [address] ??[id number] Spar Machine Operator: Anthony Greco MD, Phone: ??[phone] Deon Monteiro MD LAB - SEROLOGY ORDER [facility] ([facility]) [address] [place] [address] * (ABNORMAL) BASIC METABOLIC PANEL (CALCIUM TOTAL) (04/20/2016 2:20 PM CADMIUM LIQUOR MAKER) [facility] Glucose 150(H) 70 - 105 mg/dL 04/20/2016 4:51 PM [facility] Sodium 138 136 - 145 mmol/L 04/20/2016 4:51 PM [facility] Potassium 4.4 3.5 - 5.1 mmol/L 04/20/2016 4:51 PM [facility] Chloride 105 98 - 107 mmol/L 04/20/2016 4:51 PM [facility] CO2 19(L) 20 - 28 mmol/L 04/20/2016 4:51 PM [facility] Calcium 10.40 9.08 - 10.48 mg/dL 04/20/2016 4:51 PM [facility] Anion Gap 14 5 - 20 mmol/L 04/20/2016 4:51 PM [facility] BUN 19.7(H) 5.3 - 18.7 mg/dL 04/20/2016 4:51 PM [facility] Creatinine 0.53(L) 0.61 - 1.07 mg/dL 04/20/2016 4:51 PM [facility] eGFR by MDRD mL/min/1. 73m2 04/20/2016 4:51 PM [facility] Comment: eGFR calculations are not performed for children under 18 years old. eGFR by MDRD mL/min/1. 73m2 04/20/2016 4:51 PM CADMIUM LIQUOR MAKER [facility] Comment: eGFR calculations are not performed for children under 18 years old. Blood BLOOD SPECIMEN / Unknown Lab Venipuncture / Unknown 04/20/2016 2:20 PM CADMIUM LIQUOR MAKER 04/20/2016 3:19 PM CADMIUM LIQUOR MAKER Deon Monteiro MD LAB - CHEMISTRY NICOLA HARTMAN Performing Organization Address City/[facility]/ZIP Co de Phone Number [facility] [address] [place] [address] * (ABNORMAL) HEMOGLOBIN A1C - POCT (IP) THOMAS (04/20/2016 11:58 AM CADMIUM LIQUOR MAKER) Hemoglobin A1c POCT 6.7(A) 3.4 - 6.1 % [facility] POCT TEST[facility] QC Verified Yes Yes [facility] PO CT TESTING Blood BLOOD SPECIMEN / Unknown 04/20/2016 11:58 AM CADMIUM LIQUOR MAKER Deon Monteiro MD LAB - POINT OF CARE ORDERABLES Performing Organization Address [facility] de Phone Number [facility] [address] [phone] documented in this encounter Visit Diagnoses Diagnosis Elevated blood sugar- Primary Other abnormal glucose Diabetes mellitus, new onset (HCC) Type II or unspecified type diabetes mellitus without mention of complication, not stated as uncontrolled Elevated transaminase level Nonspecific elevation of levels of transaminase or lactic acid dehydrogenase (LDH) Hypercholesterolemia Pure hypercholesterolemia * Assessment & Plan Note - Doen Monteiro MD - 04/20/2016 2:12 PM CSTAssociated Problem(s): Controlled type 2 diabetes mellitus without complication, without long-term current use of insulin (HCC) New onset, probably type II, diabetes mellitus. [...] visit). 6. Return appointment in one month. IUM LIQUOR MAKER * Assessment & Plan Note - Deon Monteiro MD - 04/20/2016 2:12 PM CSTAssociated Problem(s): Hypercholesterolemia ? Familial 1. Fasting lipid profile 2. Decrease dietary fat intake. IUM LIQUOR MAKER * Assessment & Plan Note - Deon Monteiro MD - 04/20/2016 2:12 PM CSTAssociated Problem(s): Elevated transaminase level ? [place] 1. Repeat serum AST/ALT in one month. 2. Consider referral to Pediatric Gastroenterology IUM LIQUOR MAKER documented in this encounter Care Teams Boiler Riveter Relationship Specialty Start Date End Date Michael Colorado MD [address] [place] [address] PCP - General Pediatrics 04/20/16 documented as of this encounter
--- OUTSIDE RECORDS SUMMARY | 2024-05-25 06:26 | XMS_ITS | Encounter Summary ---
Author Organization [facility] Address [address] [facility] [place] [address] Care Team Providers Care Dining Room Captain Name Role Phone Michael Colorado MD Primary Care Provider Reason for Visit * Reason Onset Date Comments MEDICATION REFILL 12/21/2016 Encounter Details Date Type Department Care Team (Late st Contact Info) Description 12/21/2016 Refill [facility] Pediatrics - Diabetes Mgmt [address] [place] [address] Kirt Garvey MD [address] [place] [address] MEDICATION REFILL Social History Tobacco Use Types Packs/Day Years Used Date Smoking Tobacco: Never Sex and Gender Information Value Date Recorded Sex Assigned at Not on file Gender Identity Not on file Sexual Orientation Not on file documented as of this encounter Plan of Treatment Not on file documented as of this encounter Visit Diagnoses Not on filedocumented in this encounter Care Teams Dining Room Captain Relationship Specialty Start Date End Date Michael Colorado MD [address] [place] [address] PCP - General Pediatrics 04/20/16 documented as of this encounter
--- OUTSIDE RECORDS SUMMARY | 2024-05-25 06:26 | XMS_ITS | Encounter Summary ---
Author Organization [facility] Address [address] [facility] [facility] [place] [address] Care Team Providers Care Mortar Carrier Name Role Phone Michael Colorado MD Primary Care Provider [phone] Reason for Visit * Reason Onset Date Comments MEDICATION REFILL 05/20/2016 Encounter Details Date Type Department Care Team (Late st Contact Info) Description 05/20/2016 Refill [facility] Pediatrics - Diabetes [address] [address] Deon Monteiro MD [address] [place] [phone] MEDICATION REFILL Social History Tobacco Use Types Packs/Day Years Used Date Smoking Tobacco: Never Sex and Gender Information Value Date Recorded Sex Assigned at Not on file Gender Identity Not on file Sexual Orientation Not on file documented as of this encounter Miscellaneous Notes * Telephone Encounter - Janice Bower RN - 05/20/2016 12:00 PM LANDSCAPE MANAGER Family called requesting test strips refill. Called pharmacy and they have refills available. Left voicemail for mother that refills are available to call pharmacy and have them filled when needed. SCAPE MANAGER documented in this encounter Plan of Treatment Not on file documented as of this encounter Visit Diagnoses Not on filedocumented in this encounter Care Teams Mortar Carrier Relationship Specialty Start Date End Date Michael Colorado MD [address] [place] [address] PCP - General Pediatrics 04/20/16 documented as of this encounter
--- OUTSIDE RECORDS SUMMARY | 2024-05-25 06:26 | XMS_ITS | Encounter Summary ---
Author Organization [facility] Address [address] [place] [address] Care Team Providers Care Assorter Laundry Name Role Phone Michael Colorado MD Primary Care Provider [phone] Reason for Visit * Reason Onset Date Comments Results 07/26/2016 Encounter Details Date Type Department Care Team (Late st Contact Info) Description 07/26/2016 Telephone [facility] Pediatrics - Endocrinology [address] [place] [address]. [place] [address] Deon Monteiro MD [address] [place] [address] Results Social History Tobacco Use Types Packs/Day Years Used Date Smoking Tobacco: Never Sex and Gender Information Value Date Recorded Sex Assigned at Not on file Gender Identity Not on file Sexual Orientation Not on file documented as of this encounter Miscellaneous Notes * Telephone Encounter - Deon Monteiro MD - 07/26/2016 5:03 PM CST Left taped message. 07/19/2016 Na 144 mmol/L, K 5 mmol/L, Cl 106 mmol/L, CO2 26 mmol/L, BUN 9 mg/dL, creatinine 0.56 mg/dL, glucose 111 mg/dL, calcium 10 mg/dL, SGOT (AST) 34 U/L (14-37), SGPT (ALT) 68 U/L (8-29); cholesterol 151 mg/dL (140-199); triglyceride 235 mg/dL (< 150), HDL-cholesterol 37 mg/dL (> 40), LDL-cholesterol 67 mg/dL (< 130) Spot urine microalbumin/creatinine ratio: 45.8 (< 30) Deon Monteiro MD ARY TECHNICIAN documented in this encounter Plan of Treatment Not on file documented as of this encounter Visit Diagnoses Not on filedocumented in this encounter Care Teams Assorter Laundry Relationship Specialty Start Date End Date Michael Colorado MD [address] [place] [address] PCP - General Pediatrics 04/20/16 documented as of this encounter
--- OUTSIDE RECORDS SUMMARY | 2024-05-25 06:26 | XMS_ITS | Encounter Summary ---
Author Organization [facility] Address [address] [facility] [place] [address] Care Team Providers Care Technical Project Lead Name Role Phone Michael Colorado MD Primary Care Provider [phone] Reason for Visit * Reason Onset Date Comments General 12/21/2016 Encounter Details Date Type Department Care Team (Late st Contact Info) Description 12/21/2016 Telephone [facility] Pediatrics - Diabetes Mgmt [address] [place] [address] Deon Monteiro MD [address] [place] [phone] General Social History Tobacco Use Types Packs/Day Years Used Date Smoking Tobacco: Never Sex and Gender Information Value Date Recorded Sex Assigned at Not on file Gender Identity Not on file Sexual Orientation Not on file documented as of this encounter Miscellaneous Notes * Telephone Encounter - Anabel Flores RN - 12/21/2016 8:40 AM CDT Called and spoke with grandmother to assist with making appointment since last seen in 06/2016 and office received refill request for Metformin. Made appointment for 02/02/17 at 1420. morosendo Sandoval has had issues with diarrhea with Metformin but not presently having any issues. Told her to call office if has issues with diarrhea or nausea or stomach pain in future. She agreed. documented in this encounter Plan of Treatment Not on file documented as of this encounter Visit Diagnoses Not on filedocumented in this encounter Care Teams Technical Project Lead Relationship Specialty Start Date End Date Michael Colorado MD [address] [place] [id number] PCP - General Pediatrics 04/20/16 documented as of this encounter
--- OUTSIDE RECORDS SUMMARY | 2024-05-25 06:26 | XMS_ITS | Encounter Summary ---
Author Organization [facility] Address [address] [facility] [place] [address] Care Team Providers Care Apricot Packer Name Role Phone Michael Colorado MD Primary Care Provider Reason for Visit * Reason Onset Date Comments MEDICATION REFILL 04/20/2016 Encounter Details Date Type Department Care Team (Late st Contact Info) Description 04/20/2016 Refill [facility] Pediatrics - Diabetes [address] [address] Deon Monteiro MD [address] [place] [address] MEDICATION REFILL Social History Tobacco Use Types Packs/Day Years Used Date Smoking Tobacco: Never Sex and Gender Information Value Date Recorded Sex Assigned at Not on file Gender Identity Not on file Sexual Orientation Not on file documented as of this encounter Plan of Treatment Not on file documented as of this encounter Visit Diagnoses Not on filedocumented in this encounter Care Teams Apricot Packer Relationship Specialty Start Date End Date Michael Colorado MD [address] [place] [address] PCP - General Pediatrics 04/20/16 documented as of this encounter
--- OUTSIDE RECORDS SUMMARY | 2024-05-25 06:26 | XMS_ITS | Encounter Summary ---
Author Organization [facility] Address [address] [facility] [place] [address] Care Team Providers Care Technical Intern Name Role Phone Michael Colorado MD Primary Care Provider Encounter Details Date Type Department Care Team (Late st Contact Info) Description 06/08/2017 Orders Only [facility] Pediatrics - Endocrinology [address] [place] [address] Deno Monteiro MD [address] [place] [address] Controlled type 2 diabetes mellitus without complication, without long-term current use of insulin (HCC) Social History Tobacco Use Types Packs/Day Years Used Date Smoking Tobacco: Never Sex and Gender Information Value Date Recorded Sex Assigned at Not on file Gender Identity Not on file Sexual Orientation Not on file documented as of this encounter Plan of Treatment Not on file documented as of this encounter Visit Diagnoses Diagnosis Controlled type 2 diabetes mellitus without complication, without long-term current use of insulin (HCC)- Primary documented in this encounter Care Teams Technical Intern Relationship Specialty Start Date End Date Michael Colorado MD [address] [place] [address] PCP - General Pediatrics 04/20/16 documented as of this encounter
--- OUTSIDE RECORDS SUMMARY | 2024-05-25 06:26 | XMS_ITS | Encounter Summary ---
Author Organization [facility] Address [address] [facility] [place] [address] Care Team Providers Care Extractor Loader And Unloader Name Role Phone Michael Colorado MD Primary Care Provider [phone] Encounter Details Date Type Department Care Team (Late st Contact Info) Description 02/02/2017 Orders Only [facility] Pediatrics - Endocrinology [address] [place] [address] Deon Monteiro MD [address] [place] [address] Controlled type 2 diabetes mellitus without complication, [...] on file documented as of this encounter Results * (ABNORMAL) HEMOGLOBIN A1C - POCT (IP) THOMAS (02/02/2017 2:46 PM CDT) Hemoglobin A1c POCT 6.8(A) 3.4 - 6.1 % [facility] POCT TESTING QC Verified Yes Yes [facility] PO CT TESTING Blood BLOOD SPECIMEN / Unknown 02/02/2017 2:46 PM CDT Deon Monteiro MD LAB - POINT OF CARE ORDERABLES [facility] POCT TESTING [address] [place] [id number] [place] [address] * (ABNORMAL) LIPID PROFILE (02/02/2017 2:38 PM CDT) [facility] Signature Cholesterol 226(H) <170 mg/dL 02/02/2017 4:08 PM T [facility] Triglycerides 624(H) 46 - 227 mg/dL 02/02/2017 4:08 PM [facility] HDL Cholesterol 35(L) >40 mg/dL 7 4:08 PM [facility] LDL Calculated 66 <100 mg/dL 02/02/2017 4:08 PM [facility] Comment: Unable to calculate LDL due to elevated Triglycerides, please consider ordering a Direct LDL. VLDL Calculated 125(H) 12 - 38 mg/dL 02/02/2017 4:08 PM [facility] Comment: Unable to calculate LDL due to elevated Triglycerides, please consider ordering a Direct LDL. Chol HDL Ratio 6.5(H) <=5.0 02/02/2017 4:08 PM [facility] Blood BLOOD SPECIMEN / Unknown Venipuncture / Unknown 02/02/2017 2:38 PM CDT 02/02/2017 3:15 PM CDT Narrative [facility] - 02/02/2017 4:08 PM T Lipid Profile Comment: Adult references ranges are the recommendation of the [place] [employer] , for those patients >18 [...] results. Deon Monteiro MD LAB - CHEMISTRY ORDE RABLES Performing Organization Address [facility] Co de Phone Number [facility] [address] [place] [address] * (ABNORMAL) MICROALB/CREAT RATIO URINE RANDOM PANEL (02/02/2017 2:38 PM CDT) Creatinine Urine 103.98 mg/dL 02/03/20 17 4:18 PM CDT [facility] Microalbumin Urine 3.3(H) <1.7 mg/dL 02/02/2017 4:18 PM CDT [facility] Microalbumin/Crea tinine Ratio 32(H) <30 mg/g 02/02/2017 4:18 PM CDT [facility] Urine URINE SPECIMEN OBTAINED BY CLEAN CATCH PROCEDURE / Unknown Collection / Unknown 02/02/2017 2:38 PM CDT 02/02/2017 3:10 PM CDT Deon Mnoteiro MD LAB - URINE CHEMISTR Y ORDERABLES Performing Organization Address [facility] Co de Phone Number [facility] [address] [place] [address] * (ABNORMAL) COMPREHENSIVE METABOLIC PANEL (02/02/2017 2:38 PM CDT) Glucose 208(H) 70 - 105 mg/dL 02/02/2017 4:07 PM T [facility] Sodium 136 136 - 145 mmol/L 02/02/2017 4:07 PM CDT [facility] Potassium 4.0 3.5 - 5.1 mmol/L 02/02/2017 4:07 PM T [facility] Chloride 101 98 - 107 mmol/L 02/02/2017 4:07 PM CDT [facility] CO2 26 20 - 28 mmol/L 02/02/2017 4:07 PM T [facility] Calcium 9.75 9.08 - 10.48 mg/dL 02/02/2017 4:07 PM T [facility] Anion Gap 9 5 - 20 mmol/L 02/02/2017 4:07 PM [facility] BUN 14.0 5.3 - 18.7 mg/dL 02/02/2017 4:07 PM [facility] Creatinine 0.50(L) 0.61 - 1.07 mg/dL 02/02/2017 4:07 PM [facility] Alkaline Phosphatase 74(L) 100 - 390 U/L 02/02/2017 4:07 PM [facility] ALT 68(H) 8 - 65 U/L 02/02/2017 4:07 PM [facility] AST 48(H) 3 - 35 U/L 02/02/2017 4:07 PM [facility] Protein Total 8.1 6.3 - 8.2 gm/dL 02/02/2017 4:07 PM [facility] Albumin 4.5 3.3 - 4.9 gm/dL 02/02/2017 4:07 PM [facility] Bilirubin Total 0.3 0.3 - 1.2 mg/dL 02/02/2017 4:07 PM [facility] eGFR by MDRD mL/min/1. 73m2 02/02/2017 4:07 PM [facility] Comment: eGFR calculations are not performed for children under 18 years old. eGFR by MDRD mL/min/1. 73m2 02/02/2017 4:07 PM [facility] Comment: eGFR calculations are not performed for children under 18 years old. Blood BLOOD SPECIMEN / Unknown Venipuncture / Unknown 02/02/2017 2:38 PM CDT 02/02/2017 3:15 PM CDT Deon Monteiro MD LAB - CHEMISTRY NICOLA HARTMAN [facility] Organization Address City/State/[facility] Co de Phone Number [facility] [address] [place] [address] documented in this encounter Visit Diagnoses Diagnosis Controlled type 2 diabetes mellitus without complication, without long-term current use of insulin (HCC)- Primary documented in this encounter Care Teams Extractor Loader And Unloader Relationship Specialty Start Date End Date Michael Colorado MD [address] [place] [address] PCP - General Pediatrics 11/16/16 documented as of this encounter
--- OUTSIDE RECORDS SUMMARY | 2024-05-25 06:26 | XMS_ITS | Encounter Summary ---
Author Organization [facility] Address [address] [facility] [place] [address] Care Team Providers Care Wood Floor Refinisher Name Role Phone Michael Colorado MD Primary Care Provider [phone] Encounter Details Date Type Department Care Team (Latest Contact Info) Description 04/20/2016 2:13 PM UPPER CUTTER OUT - 04/20/2016 11:59 PM [facility] Hospital Encounter [facility] - [address] [address] Deon Monteiro MD [address] [place] [address] Discharge Disposition: Home or Self Care Social History Tobacco Use Types Packs/Day Years Used Date Smoking Tobacco: Never Sex and Gender Information Value Date Recorded Sex Assigned at Not on file Gender Identity Not on file Sexual Orientation Not on file documented as of this encounter Medications at Time of Discharge Medication Sig Dispensed Refills Start Date End Date albuterol HFA (PROVENTIL;VENTOLIN;WI OAIR) 108 (90 BASE) MCG/ACT inhaler Inhale 2 Puffs by mouth every 6 hours as needed amphetamine-dextroamph etamine (ADDERALL) 30 MG tablet Take 30 mg by mouth every morning amphetamine-dextroamph etamine XR 24hr (ADDERALL XR) 15 MG capsule Take 15 mg by mouth every morning Blood Glucose Monitoring Suppl (OdinOtvetCK BLOOD GLUCOSE) W/DEVICE KIT Use as directed 1 Kit 1 04/20/2016 cloNIDine (CATAPRES) 0.1 MG tablet Take 0.1 mg by mouth 2 times daily Fluticasone Propionate HFA (FLOVENT HFA IN) acetone,urine, (KETOSTIX) strip Use if blood sugar greater than 250 or in times of illness. 100 Strip 5 04/20/2016 02/02/2017 blood glucose (TRUETRACK TEST) test strip Use to test blood sugar 2-3 times daily. 100 Strip 5 04/20/2016 02/02/2017 metFORMIN (GLUCOPHAGE) 500 MG tablet Start with 500 mg in the evening and increase as directed and discussed. To eventually take 1,000 bid 120 Tab 1 04/20/2016 12/21/2016 MICROLET LANCETS MISC Use 1 Each as directed Use to test blood sugar 2 -3 times daily. 100 Each 11 04/20/2016 02/02/2017 documented as of this encounter Plan of Treatment Not on file documented as of this encounter Visit Diagnoses Not on filedocumented in this encounter Care Teams Wood Floor Refinisher Relationship Specialty Start Date End Date Michael Colorado MD [address] [place] [address] PCP - General Pediatrics 04/20/16 documented as of this encounter
--- OUTSIDE RECORDS SUMMARY | 2024-05-25 06:26 | XMS_ITS | Encounter Summary ---
Author Organization [facility] Address [address] [facility] [place] [address] Care Team Providers Care Apartment Leasing Consultant Name Role Phone Michael Colorado MD Primary Care Provider [phone] Reason for Visit * Reason Onset Date Comments Results 08/01/2016 Encounter Details Date Type Department Care Team (Late st Contact Info) Description 08/01/2016 Telephone [facility] Pediatrics - Endocrinology [address] [place] [phone] Deon Monteiro MD [address] [place] [address] Results Social History Tobacco Use Types Packs/Day Years Used Date Smoking Tobacco: Never Sex and Gender Information Value Date Recorded Sex Assigned at Not on file Gender Identity Not on file Sexual Orientation Not on file documented as of this encounter Plan of Treatment Not on file documented as of this encounter Visit Diagnoses Not on filedocumented in this encounter Care Teams Apartment Leasing Consultant Relationship Specialty Start Date End Date Michael Colorado MD [address] [place] [address] PCP - General Pediatrics 04/20/16 documented as of this encounter
--- OUTSIDE RECORDS SUMMARY | 2024-05-25 06:26 | XMS_ITS | Encounter Summary ---
Author Organization [facility] Address [facility] [place] [address] Care Team Providers Care Osteology Teacher Name Role Phone Michael Colorado MD Primary Care Provider [phone] Reason for Visit * Reason Comments Diabetes Encounter Details Date Type Department Care Team (Latest Contact Info) Description 02/02/2017 2:20 PM CDT - 02/02/2017 11:59 PM CDT Hospital Encounter [facility] Pediatrics - Diabetes [address] [address] Deon Monteiro MD [address] [place] [address] [phone] Discharge Disposition: Home or Self Care Social [...] Mass Index 32.86 02/02/2017 2:37 PM CDT Body Mass Index Percentile 96.92% 02/02/2017 2:3 7 PM CDT Growth Chart: CDC (Girls, 2- 20 Years) documented in this encounter Medications at Time of Discharge Medication Sig Dispensed Refills Start Date End Date acetone,urine, (KETOSTIX) stripIndications:Control led type 2 diabetes mellitus without complication, without long-term current use of insulin (HCC) Use if blood sugar greater than 250 or in times of illness. 100 Strip 5 02/02/2017 albuterol HFA (PROVENTIL;VENTOLIN;PROA IR) 108 (90 BASE) MCG/ACT inhaler Inhale 2 Puffs by mouth every 6 hours as needed amphetamine-dextroamphet amine (ADDERALL) 30 MG tablet Take 30 mg by mouth every morning amphetamine-dextroamphet amine XR 24hr (ADDERALL XR) 15 MG capsule Take 15 mg by mouth every morning blood glucose (TRUETRACK TEST) test stripIndications:Control led type 2 diabetes mellitus without complication, without long-term current use of insulin (HCC) Use to test blood sugar 2-3 times daily. 100 Strip 5 02/02/2017 Blood Glucose Monitoring Suppl (TRUETRACK BLOOD GLUCOSE) W/DEVICE KIT Use as directed 1 Kit 1 04/20/2016 cloNIDine (CATAPRES) 0.1 MG tablet Take 0.1 mg by mouth 2 times daily Fluticasone Propionate HFA (FLOVENT HFA IN) metFORMIN (GLUCOPHAGE) 500 MG tabletIndications:Contro lled type 2 diabetes mellitus without complication, without long-term current use of insulin (HCC) Take two 500 mg tablets in the am and pm with food. 120 Tab 5 02/02/2017 MICROLET LANCETS MISCIndications:Controll ed type 2 diabetes mellitus without complication, without long-term current use of insulin (HCC) Use 1 Each as directed Use to test blood sugar 2 -3 times daily. 100 Each 11 02/02/2017 documented as of this encounter Progress Notes * Deon Monteiro MD - 02/02/2017 2:43 PM CDT I had the pleasure of seeing Lori Landeros and her parents in our outpatient Pediatric Diabetes offices at [facility] on 02/02/2017. As you know, she is a 16 y.o. girl who has had type 2 diabetes mellitus since: Problem Controlled Type 2 Diabetes Mellitus Without Complication, Without Long-Term Current Use of Insulin Apr 15, 2016 - [facility], [address], [place] [address] Na 143 mmol/L, K 4.4 mmol/L, Cl [...] hemoglobin A1c 6.7 %; C-peptide 4.1 ng/dL (0.78-1.89),serum anti-PERLA < 5 U/mL (< 5.0), anti-insulin [IA-2 ab] < 0.8 U/mL (0.0-0.8), anti-islet cell IgG antibodies < 1:1 (< 1:1). Hypercholesterolemia cholesterol 261 mg/dL (100-170); triglyceride 925 mg/dL (140-199), HDL- cholesterol 41 mg/dL (< 150), LDL-cholesterol mg/dL (< 130) Jul 19, 2016 - [facility] Cholesterol 151 mg/dL (140-199), triglycerides 235 mg/dL (< 150), HDL- cholesterol 37 mg/dL (>40), LDL-cholesterol 67 (< 130) Elevated Transaminase Level Apr 15, 2016 - ALT 107 U/L Jul 19, 2016 - ALT 68 U/L (8-29); AST 34 U/L (14-37) Complications: none; Last eye exam: none yet Interval History: no major problems. Hyperglycemia none Blood Glucose Monitoring: Lori Landeros'bárbara glucose monitoring is done by self 1 x day using a One Touch Ultra with a target range of 70-150 mg/dL; logbook not available for examination and glucometer not available for examination. She tells me that her blood glucose levels when measured randomly throughout the day range between 120-180 mg/dL; rare values are in the 190's mg/dL. Breakfast Lunch Dinner Bedtime Overnight Other Comments Range Lo/Target/Hi Diabetes Therapies: Metformin 1000 mg twice daily Meal Plan: Lori Landeros parent(s) report the child has meal amounts that are unmeasured. Between meal snacking without taking insulin: rare; Is snacking problematic: no Sports/Physical Exercise: walking Hypoglycemia: Frequency/Treatment: none. Lori Landeros has not experienced recent severe or nocturnal hypoglycemia. Urine Ketone Monitoring: no. Review of Systems: General: weight gained - 2 lb(s); insomnia none Skin: no skin rashes Eyes: no visual changes; she does not wear prescription eye glasses/contacts Respiratory: negative GI: negative : negative sexually active: No; LMP 1 weeks ago; menses occur every 1 months; duration of menses: 5 days; menstrual cramping mild, occurring first 1-2 days of flow Neurological: no headaches Musculoskeletal: no joint pains, muscle aches, weakness Psychiatric: taking Adderall XR 30 mg am and 15 mg at noon and clonidine at HS for adhd Endocrine: no polyuria, polydipsia, or heat/cold intolerance The remainder of his review of systems was unrevealing. History/Other Medical Diagnoses: I have reviewed the patient's medical, surgical, social and family history and the updates are mother and father have elevated serum cholesterol levels. Other Medications: ??? metFORMIN (GLUCOPHAGE) 500 MG tablet Take two 500 mg tablets in the am and pm with food. ??? acetone,urine, (KETOSTIX) strip Use if blood sugar greater than 250 or in times of illness. ??? MICROLET LANCETS [facility] 1 Each as directed Use to test blood sugar 2 -3 times daily. ??? blood glucose (TRUETRACK TEST) test strip Use to test blood sugar 2-3 times daily. ??? amphetamine-dextroamphetamine (ADDERALL) 30 MG tablet Take 30 mg by mouth every morning ??? amphetamine-dextroamphetamine XR 24hr (ADDERALL XR) 15 MG capsule Take 15 mg by mouth every morning ??? cloNIDine (CATAPRES) 0.1 MG tablet Take 0.1 mg by mouth 2 times daily ??? Fluticasone Propionate HFA (FLOVENT HFA IN) ??? albuterol HFA (PROVENTIL;VENTOLIN;PROAIR) 108 (90 BASE) MCG/ACT inhaler Inhale 2 Puffs by mouthevery 6 hours as needed ??? Blood Glucose Monitoring Suppl (TRUETRACK BLOOD GLUCOSE) W/DEVICE KIT Use as directed Family History: unchanged since last visit. Allergy: Allergies Allergen Reactions ??? Morphine Social History: Resides with: parents School: Lori Landeros is enrolled in the 11th grade and has received satisfactory grades in her coursework. Habits: Smoking: No; drinking: No Other: No Physical Exam: BP 120/64 Ht 1.655 m (5' 5.16 ) Wt 90 kg (198 lb 6.6 oz) LMP 01/23/2017 BMI 32.86 kg/m2 98 %ile (Z= 2.01) based on CDC 2-20 Years aqbivp-gee-qya data using vitals from 02/02/2017. 66 %ile (Z= 0.41) based on CDC 2-20 Years ctpfkiy-son-aae data using vitals from 02/02/2017. Body mass index is 32.86 kg/(m^2). 97 %ile (Z= 1.95) based on CDC 2-20 Years BMI-for-age data using vitals from 02/02/2017. BP 120/64 Ht 1.655 m (5' 5.16 ) Wt 90 kg (198 lb 6.6 oz) BMI 32.86 kg/m2 Blood pressure percentiles are 76 % systolic and 40 % diastolic based on NHBPEP's 4th Report. Bloodpressure percentile targets: 90: 126/81, 95: 130/85, 99 + 5 mmH/97. Weight: 90 kg (198 lb 6.6 oz) - 98 %ile (Z= 2.01) based on CDC 2-20 Years igwtlx-bny-hue data usingvitals from 02/02/2017. Height: 165.5 cm (5' 5.16 ) - 66 %ile (Z= 0.41) based on CDC 2-20 Years scoljga-vod-nep data using vitals from 02/02/2017. BMI: 32.86 kg/m2 - 97 %ile (Z= 1.95) based on CDC 2-20 Years BMI-for-age data using vitals from 02/02/2017. Body surface area is 2.03 meters squared. General: nondistressed-appearing girl Head: normocephalic/atraumatic Eyes: Conjugate gaze; PERRLA with EOMI; she is not wearing prescription glasses Ears/narers: normally-shaped & positioned Neck: supple, without thyromegaly; acanthosis nigricans present Oropharynx: mmm Chest: breath sounds are clear Heart: RRR without murmur Abdomen: soft, nontender, without organomegaly Sexual maturation: Breasts: Piyush stage 5 Skin: warm, dry; without lipohypertrophy Neurological exam: symmetric and nonfocal. Medic-Alert tag Status: She does not wear her Medic-Alert tag. Laboratory Data: Hospital Encounter on 02/02/17 COMPREHENSIVE METABOLIC PANEL Result Value Ref Range Glucose 208 (H) 70 - 105 mg/dL Sodium 136 136 - 145 mmol/L Potassium 4.0 3.5 - 5.1 mmol/L Chloride 101 98 - 107 mmol/L CO2 26 20 - 28 mmol/L Calcium 9.75 9.08 - 10.48 mg/dL Anion Gap 9 5 - 20 mmol/L BUN 14.0 5.3 - 18.7 mg/dL Creatinine 0.50 (L) 0.61 - 1.07 mg/dL Alk Phos 74 (L) 100 - 390 U/L ALT/SGPT 68 (H) 8 - 65 U/L AST/SGOT 48 (H) 3 - 35 U/L Protein Total 8.1 6.3 - 8.2 gm/dL Albumin 4.5 3.3 - 4.9 gm/dL Bili Total 0.3 0.3 - 1.2 mg/dL eGFR MDRD mL/min/1.73m2 eGFR MDRD AFR AMR mL/min/1.73m2 LIPID PROFILE Result Value Ref Range Cholesterol 226 (H) <170 mg/dL Triglycerides 624 (H) 46 - 227 mg/dL HDL Chol 35 (L) >40 mg/dL LDL Calc 66 <100 mg/dL VLDL Calc 125 (H) 12 - 38 mg/dL Chol HDL Ratio 6.5 (H) <=5.0 MICROALB/CREAT RATIO URINE RANDOM PANEL Result Value Ref Range Creat Urine mg/dL 103.98 mg/dL Microalbumin Ur mg/dL 3.3 (H) <1.7 mg/dL Microalb/Creat Ratio 32 (H) <30 mg/g HEMOGLOBIN A1C - POCT (IP) BEAKER Result Value Ref Range Hgb A1C POCT 6.8 (Abnormal) 3.4 - 6.1 % QC Verified Yes Yes Recent Labs Component Name 02/02/17 1446 06/28/16 1052 04/20/16 1158 HGBA1C 6.8* 6.8* 6.7* Recent Labs Component Name 02/02/17 1438 CHOL 226* HDL 35* Discussion: Lori Landeros's overall glycemic control is good at this office visit. I would like to see her begin to loose weight in the near future. Her prior fasting serum total cholesterol and LDL-cholesterol level were normal in July,. I encouraged her to increase her daily physical exercise and bring her home glucose records to her next office appointment in four months. Management Plan: Orders Placed This Encounter ??? HEMOGLOBIN A1C - POINT OF CARE (IP) Assessment and Management Plan: Controlled type 2 diabetes mellitus without complication, without long-term current use of insulin 1. Metformin 1000 mg twice daily 2. Measure and record blood glucose level in logbook twice daily 3. Diet/exercise to promote weight loss 4. Return appointment in four months. Elevated transaminase level 1. Repeat serum AST and ALT 2. Consider Pediatric Gastroenterology referral for persistent elevation (rule out BURGOS) Hypercholesterolemia Normal fasting serum cholesterol level in July, 1. Dietary counseling - decrease concentrated sweets/fats Return appointment: Return in about 4 months (around 06/04/2017). Of the 30 minutes spent with Lori and her parents ; 15 minutes were spent discussing HgbA1c, exercise, control and complications, blood glucose monitoring and target blood glucose range. Family informed of laboratory test results on 02/02/2017 by Deon Monteiro MD. bg 1 daily; 130-140 (low mg/dL; high 190 mg/dL) documented in this encounter Plan of Treatment [...] without long-term current use of insulin (HCC) LIPID PROFILE Routine 02/02/2017 2:38 PM CDT Controlled type 2 diabetes mellitus without complication, without long-term current use of insulin (HCC) documented in this encounter Results * (ABNORMAL) HEMOGLOBIN A1C - POCT (IP) BEAKER (02/02/2017 2:46 PM CDT) Hemoglobin A1c POCT 6.8(A) 3.4 - 6.1 % [facility] POCT TESTING QC Verified Yes Yes [facility] PO CT TESTING Blood BLOOD SPECIMEN / Unknown 02/02/2017 2:46 PM CDT Deon Monteiro MD LAB - POINT OF CARE ORDERABLES Performing Organization Address City/State/[facility] Co de Phone Number [facility] POCT TESTING [facility] [phone] * (ABNORMAL) MICROALB/CREAT RATIO URINE RANDOM PANEL (02/02/2017 2:38 PM CDT) Creatinine Urine 103.98 mg/dL 02/03/20 17 4:18 PM CDT [facility] Microalbumin Urine 3.3(H) <1.7 mg/dL 02/02/2017 4:18 PM CDT [facility] Microalbumin/Crea tinine Ratio 32(H) <30 mg/g 02/02/2017 4:18 PM CDT [facility] Urine URINE SPECIMEN OBTAINED BY CLEAN CATCH PROCEDURE / Unknown Collection / Unknown 02/02/2017 2:38 PM CDT 02/02/2017 3:10 PM CDT Deon Monteiro MD LAB - URINE CHEMISTR Y ORDERABLES [facility] [address] [facility] [place] [address] * (ABNORMAL) LIPID PROFILE (02/02/2017 2:38 PM CDT) Cholesterol 226(H) <170 mg/dL 02/02/2017 4:08 PM CDT [facility] Triglycerides 624(H) 46 - 227 mg/dL 02/02/2017 4:08 PM T [facility] HDL Cholesterol 35(L) >40 mg/dL 7 4:08 PM T [facility] LDL Calculated 66 <100 mg/dL 02/02/2017 4:08 PM T [facility] Comment: Unable to calculate LDL due to elevated Triglycerides, please consider ordering a Direct LDL. VLDL Calculated 125(H) 12 - 38 mg/dL 02/02/2017 4:08 PM T [facility] Comment: Unable to calculate LDL due to elevated Triglycerides, please consider ordering a Direct LDL. Chol HDL Ratio 6.5(H) <=5.0 02/02/2017 4:08 PM T [facility] Blood BLOOD SPECIMEN / Unknown Venipuncture / Unknown 02/02/2017 2:38 PM CDT 02/02/2017 3:15 PM CDT Narrative [facility] - 02/02/2017 4:08 PM CDT Lipid Profile Comment: Adult references ranges are the recommendation of the [place] [employer] , for those patients >18 [...] Monteiro MD LAB - CHEMISTRY NICOLA HARTMAN [facility] Organization Address City/State/ZIP Co de Phone Number [facility] [address] [place] [address] * (ABNORMAL) COMPREHENSIVE METABOLIC PANEL (02/02/2017 2:38 PM CDT) [facility] Glucose 208(H) 70 - 105 mg/dL 02/02/2017 4:07 PM CDT [facility] Sodium 136 136 - 145 mmol/L 02/02/2017 4:07 PM T [facility] Potassium 4.0 3.5 - 5.1 mmol/L 02/02/2017 4:07 PM T [facility] Chloride 101 98 - 107 mmol/L 02/02/2017 4:07 PM T [facility] CO2 26 20 - 28 mmol/L 02/02/2017 4:07 PM [facility] Calcium 9.75 9.08 - 10.48 mg/dL 02/02/2017 4:07 PM T [facility] Anion Gap 9 5 - 20 mmol/L 02/02/2017 4:07 PM T [facility] BUN 14.0 5.3 - 18.7 mg/dL 02/02/2017 4:07 PM [facility] Creatinine 0.50(L) 0.61 - 1.07 mg/dL 02/02/2017 4:07 PM [facility] Alkaline Phosphatase 74(L) 100 - 390 U/L 02/02/2017 4:07 PM [facility] ALT 68(H) 8 - 65 U/L 02/02/2017 4:07 PM [facility] AST 48(H) 3 - 35 U/L 02/02/2017 4:07 PM [facility] Protein Total 8.1 6.3 - 8.2 gm/dL 02/02/2017 4:07 PM [facility] Albumin 4.5 3.3 - 4.9 gm/dL 02/02/2017 4:07 PM [facility] Bilirubin Total 0.3 0.3 - 1.2 mg/dL 02/02/2017 4:07 PM CDT [facility] eGFR by MDRD mL/min/1. 73m2 02/02/2017 4:07 PM CDT [facility] Comment: eGFR calculations are not performed for children under 18 years old. eGFR by MDRD mL/min/1. 73m2 02/02/2017 4:07 PM CDT [facility] Comment: eGFR calculations are not performed for children under 18 years old. Blood BLOOD SPECIMEN / Unknown Venipuncture / Unknown 02/02/2017 2:38 PM CDT 02/02/2017 3:15 PM CDT Deon Monteiro MD LAB - CHEMISTRY NICOLA HARTMAN [facility] [address] [place] [address] documented in this encounter Visit Diagnoses Diagnosis Controlled type 2 diabetes mellitus without complication, without long-term current use of insulin (HCC) * Assessment & Plan Note - Deon Monteiro MD - 02/02/2017 11:59 PM CDTAssociated Problem(s): Elevated transaminase level 1. Repeat serum AST and ALT 2. Consider Pediatric Gastroenterology referral for persistent elevation (rule out BURGOS) * Assessment & Plan Note - Deon Monteiro MD - 02/02/2017 11:59 PM CDTAssociated Problem(s): Hypercholesterolemia Normal fasting serum cholesterol level in July, 1. Dietary counseling - decrease concentrated sweets/fats * Assessment & Plan Note - Deon Monteiro MD - 02/02/2017 5:24 PM CDTAssociated Problem(s): Controlled type 2 diabetes mellitus without complication, without long-term current use of insulin (HCC) 1. Metformin 1000 mg twice daily 2. Measure and record blood glucose level in logbook twice daily 3. Diet/exercise to promote weight loss 4. Return appointment in four months. documented in this encounter Care Teams Osteology Teacher Relationship Specialty Start Date End Date Michael Colorado MD [address] [facility] [address] [place] [address] PCP - General Pediatrics 04/20/16 documented as of this encounter
--- OUTSIDE RECORDS SUMMARY | 2024-05-25 06:26 | XMS_ITS | Encounter Summary ---
Author Organization [facility] Address [address] [place] [address] Care Team Providers Care Button Attaching Machine Operator Name Role Phone Michael Colorado MD Primary Care Provider [phone] Reason for Visit * Reason Comments Diabetes Encounter Details Date Type Department Care Team (Latest Contact Info) Description 06/28/2016 10:36 AM PLACEMENT SECRETARY - 06/28/2016 11:59 PM PLACEMENT SECRETARY Hospital Encounter [facility] Pediatrics - Diabetes [address] [address] Deon Monteiro MD [address] [place] [address] [id number] Discharge Disposition: Home or Self Care Social History Tobacco Use Types Packs/Day Years Used Date Smoking Tobacco: Never Sex and Gender Information Value Date Recorded Sex Assigned at Not on file Gender Identity Not on file Sexual Orientation Not on file documented as of this encounter Last Filed Vital Signs Vital Sign Reading Time Taken Comments Blood Pressure 100/70 06/28/2016 10:50 AM PLACEMENT SECRETARY Pulse - - Temperature - - Respiratory Rate - - Oxygen Saturation - - Inhaled Oxygen Concentration - - Weight 89.2 kg (196 lb 10.4 oz) 017 10:50 AM PLACEMENT SECRETARY Height 165.5 cm (5' 5.16 ) 06/28/2016 1 0:50 AM PLACEMENT SECRETARY Body Mass Index 32.57 06/28/2016 10:50 AM PLACEMENT SECRETARY Body Mass Index Percentile 97.05% 06/28 10:50 AM PLACEMENT SECRETARY Growth Chart: CDC (Girls, 2- 20 Years) documented in this encounter Medications at Time of Discharge Medication Sig Dispensed Refills Start Date End Date albuterol HFA (PROVENTIL;VENTOLIN;N[place] OAIR) 108 (90 BASE) MCG/ACT inhaler Inhale 2 Puffs by mouth every 6 hours as needed amphetamine-dextroamph etamine (ADDERALL) 30 MG tablet Take 30 mg by mouth every morning amphetamine-dextroamph etamine XR 24hr (ADDERALL XR) 15 MG capsule Take 15 mg by mouth every morning Blood Glucose Monitoring Suppl (TRUETRACK BLOOD GLUCOSE) [...] 04/20/2016 02/02/2017 documented as of this encounter Progress Notes * Deon Monteiro MD - 06/28/2016 2:23 PM CST I had the pleasure of seeing Lori Landeros and her father in our outpatient Pediatric Diabetes offices at [facility] on 06/28/2016. As you know, she is a 16 y.o. girl who has had type 2 diabetes mellitus since: Problem Urine Test Positive for Microalbuminuria Apr 20, 2016 - spot urine microalbumin/creatinine: 36 mg/g (< 30) Controlled Type 2 Diabetes Mellitus Without Complication, Without Long-Term Current Use of Insulin Apr 15, 2016 - [facility], [address] [place], [place] [address] Na 143 mmol/L, K 4.4 mmol/L, Cl [...] mg/dL (< 150), LDL-cholesterol mg/dL (< 130) Elevated Transaminase Level Apr 15, 2016 - ALT 107 U/L Complications: none; Last eye exam: none yet Interval History: no major problems. Hyperglycemia none Blood Glucose Monitoring: Lori Landeros's glucose monitoring is done by self 1-3 x day using a One Touch Ultra with a target range of 70-150 mg/dL; logbook available for examination My review of Lori Landeros's interval home blood glucose records over the past 3 weeks from her meter/logbook brought to this appointment reveals good variability of the recorded values; fasting morning values range from 102-190 mg/dL; She has 95-230 mg/dL; she has about 1-2 values per week above 200 mg/dL Scanned copies of these home blood glucose records can be viewed in the Media section of the electronic health record. Breakfast Lunch Dinner Bedtime Overnight Other Comments Range Lo/Target/Hi Diabetes Therapies: Metformin 1000 mg twice daily Meal Plan: Lori Landeros parent(s) report the child is on a consistent carb meal plan. Between meal snacking without taking insulin: rare; Is snacking problematic: no Sports/Physical Exercise: walking Hypoglycemia: Frequency/Treatment: none. Lori Landeros has not experienced recent severe or nocturnal hypoglycemia. Urine Ketone Monitoring: no. Review of Systems: General: weight not changed - 0 lb(s); insomnia +, improved with melatonin and clonidien Skin: acne Eyes: no visual changes; she does not wear prescription eye glasses/contacts Respiratory: negative GI: some stomach upset with metformin : negative sexually active: No; OOM: age 11 years; LMP 1 months ago; menses occur every 1 months; duration of menses: 6 days; menstrual cramping none Neurological: no headaches Musculoskeletal: no joint pains, muscle aches, weakness Psychiatric: adhd Endocrine: no polyuria, polydipsia, or heat/cold intolerance The remainder of his review of systems was unrevealing. History/Other Medical Diagnoses: I have reviewed the patient's medical, surgical, social and family history and there are no changes. Other Medications: ??? amphetamine-dextroamphetamine (ADDERALL) 30 MG tablet [...] test blood sugar 2 -3 times daily. Family History: unchanged since last visit. Allergy: Allergies Allergen Reactions ??? Morphine Social History: Resides with: mother School: Lori Landeros is enrolled in the 10th grade and has received satisfactory grades in her coursework. Habits: Smoking: No; drinking: No Other: No Physical Exam: BP 100/70 Ht 1.655 m (5' 5.16 ) Wt 89.2 kg (196 lb 10.4 oz) LMP 05/28/2016 (Approximate) BMI 32.57 kg/m2 98 %ile (Z= 2.02) based on CDC 2-20 Years aaegbk-[id number] data using vitals from 06/28/2016. 67 %ile (Z= 0.44) based on CDC - Years umvjqpv-von-quj data using vitals from 06/28/2016. Body mass index is 32.57 kg/(m^2). 98 %ile (Z= 1.97) based on CDC - Years BMI-for-age data using vitals from 06/28/2016. BP 100/70 Ht 1.655 m (5' 5.16 ) Wt 89.2 kg (196 lb 10.4 oz) BMI 32.57 kg/m2 Blood pressure percentiles are 12 % systolic and 62 % diastolic based on NHBPEP's 4th Report. Bloodpressure percentile targets: 90: 126/81, 95: 130/85, 99 + 5 mmH/97. Weight: 89.2 kg (196 lb 10.4 oz) - 98 %ile (Z= 2.02) based on CDC - Years dbphbm-hev-wwt data using vitals from 06/28/2016. Height: 165.5 cm (5' 5.16 ) - 67 %ile (Z= 0.44) based on CDC -20 Years amlucbk-ahn-kwb data using vitals from 06/28/2016. BMI: 32.57 kg/m2 - 98 %ile (Z= 1.97) based on CDC 2- Years BMI-for-age data using vitals from 06/28/2016. Body surface area is 2.03 meters squared. General: nondistressed-appearing girl Head: normocephalic/atraumatic Eyes: Conjugate gaze; PERRLA with EOMI; she is not wearing prescription glasses Ears/narers: normally-shaped & positioned Neck: supple, without thyromegaly; acanthosis nigricans absent Oropharynx: noncarious dentition Chest: breath sounds are clear Heart: RRR without murmur Abdomen: soft, nontender, without organomegaly Sexual maturation: Breasts: Piyush stage 5 Skin: warm, dry; without lipohypertrophy Neurological exam: symmetric and nonfocal. Medic-Alert tag Status: She does not wear her Medic-Alert tag. Laboratory Data: Hospital Encounter on 06/28/16 HEMOGLOBIN A1C - POCT (IP) BEAKER Result Value Ref Range Hgb A1C POCT 6.8 (Abnormal) 3.4 - 6.1 % QC Verified Yes Yes Recent Labs Component Name 06/28/16 1052 04/20/16 1158 HGBA1C 6.8* 6.7* Management Plan: Orders Placed This Encounter ??? HEMOGLOBIN A1C - POINT OF CARE (IP) Assessment and Management Plan: Urine test positive for microalbuminuria ? Nonspecific vs early diabetic related microalbuminuria 1. Obtain first morning voided urine specimen for microalbumin/creatinine ratio (laboratory requisition given at the time of the office visit). 2. Expectant observation. 3. Return appointment in three months. Controlled type 2 diabetes mellitus without complication, without long-term current use of insulin Good glycemic control. 1. Metformin 1000 mg bid 2. Home glucose monitoring twice daily. 3. Daily physical exercise (60 minutes daily) to promote weight loss 4. Return appointment in three months. Elevated transaminase level ? Nonspecific elevation vs evolving BURGOS 1. Repeat serum ALT level (laboratory requisition given at the time of the office visit). 3. Expectant observation. 3. Return appointment in three months. Hypercholesterolemia 1. Dietary counseling provided 2. Fasting lipid profile (laboratory requisition given at the time of the office visit). .3 Return appointment in three months. Return appointment: Return in about 3 months (around 09/26/2016). Of the 30 minutes spent with Lori and her father ; 20 minutes were spent discussing HgbA1c, exercise, control and complications, blood glucose monitoring, parental supervision, target blood glucoserange and diet, exercise, weight loss, importance of completing screening follow-up studies. Family informed of laboratory test results on 06/28/2016 by Deon oMnteiro MD. EMENT SECRETARY documented in this encounter Plan of Treatment Scheduled Orders Name Type Priority Associated Diagnoses Orde r Schedule AST BLOOD Lab Routine Diabetes mellitus, new onset (HCC) Ordered: 06/28/2016 ALT Lab Routine Diabetes mellitus, new onset (HCC) Ordered: 06/28/2016 LIPID PROFILE Lab Routine Diabetes mellitus, new onset (HCC) Ordered: 06/28/2016 URINE MICROALB/CREAT RATIO RANDOM PANEL Lab Routine Diabetes mellitus, new onset (HCC) Ordered: 06/28/2016 BASIC METABOLIC PANEL (CALCIUM TOTAL) Lab Routine Diabetes mellitus, new onset (HCC) Ordered: 06/28/2016 documented as of this encounter Procedures Procedure Name Priority Date/Time Associated Diagnosis Comments LAB RESULTS ORDER 08/08/2016 10: 54 PM PLACEMENT SECRETARY HEMOGLOBIN A1C - POCT (IP) BEAKER Routine 06/28/2016 10:52 AM PLACEMENT SECRETARY Controlled diabetes mellitus type 1 without complications (HCC) documented in this encounter Results * LAB RESULTS ORDER (08/08/2016 10:54 PM PLACEMENT SECRETARY) Narrative 08/08/2016 10:54 PM PLACEMENT SECRETARY Ordered by an unspecified provider. Scanned Document LAB - THERAPEUTIC DR LINO MONITORING ORDERABLES * (ABNORMAL) HEMOGLOBIN A1C - POCT (IP) BEAKER (06/28/2016 10:52 AM PLACEMENT SECRETARY) Hemoglobin A1c POCT 6.8(A) 3.4 - 6.1 % [facility] POCT TESTING QC Verified Yes Yes [facility] PO CT TESTING Blood BLOOD SPECIMEN / Unknown 06/28/2016 10:52 AM PLACEMENT SECRETARY Deon Monteiro MD LAB - POINT OF CARE ORDERABLES [facility] POCT TESTING [facility] [address] [phone] documented in this encounter Visit Diagnoses Diagnosis Controlled diabetes mellitus type 1 without complications (HCC)- Primary Diabetes mellitus, new onset (HCC) Type II or unspecified type diabetes mellitus without mention of complication, not stated as uncontrolled Controlled type 2 diabetes mellitus without complication, without long-term current use of insulin (HCC) Elevated transaminase level Nonspecific elevation of levels of transaminase or lactic acid dehydrogenase (LDH) Hypercholesterolemia Pure hypercholesterolemia Urine test positive for microalbuminuria * Assessment & Plan Note - Deon Monteiro MD - 06/28/2016 11:59 PM CSTAssociated Problem(s): Hypercholesterolemia 1. Dietary counseling provided 2. Fasting lipid profile (laboratory requisition given at the time of the office visit). .3 Return appointment in three months. EMENT SECRETARY * Assessment & Plan Note - Deon Monteiro MD - 06/28/2016 11:59 PM CSTAssociated Problem(s): Elevated transaminase level ? Nonspecific elevation vs evolving BURGOS 1. Repeat serum ALT level (laboratory requisition given at the time of the office visit). 3. Expectant observation. 3. Return appointment in three months. EMENT SECRETARY * Assessment & Plan Note - Deon Monteiro MD - 06/28/2016 11:59 PM CSTAssociated Problem(s): Controlled type 2 diabetes mellitus without complication, without long-term current use of insulin (HCC) Good glycemic control. 1. Metformin 1000 mg bid 2. Home glucose monitoring twice daily. 3. Daily physical exercise (60 minutes daily) to promote weight loss 4. Return appointment in three months. EMENT SECRETARY * Assessment & Plan Note - Deon Monteiro MD - 06/28/2016 11:59 PM CSTAssociated Problem(s): Urine test positive for microalbuminuria ? Nonspecific vs early diabetic related microalbuminuria 1. Obtain first morning voided urine specimen for microalbumin/creatinine ratio (laboratory requisition given at the time of the office visit). 2. Expectant observation. 3. Return appointment in three months. EMENT SECRETARY documented in this encounter Care Teams Button Attaching Machine Operator Relationship Specialty Start Date End Date Michael Colorado MD [address] [facility] [address] [place] [address] PCP - General Pediatrics 04/20/16 documented as of this encounter
--- OUTSIDE RECORDS SUMMARY | 2024-05-25 06:26 | XMS_ITS | Clinical Summary ---
Author Organization [facility] Address [address] [place] [address] Care Team Providers Care Assistant Men'S Soccer Coach Name Role Phone Michael Colorado MD Primary Care Provider [phone] Source Comments [facility],non-owned Affiliates and Associated Physician Practices is amultiple site organization consisting of ambulatory clinics and hospital sitesin [place], [place], [place] and [place]. This disclosure is being madepursuant to the Care Everywhere program and may not contain all information available regarding this patient. Last updated 18.[facility] Allergies Active Allergy Reactions Criticality Noted Date [...] 36 mg/g (< 30) Jul 19, 2016 ([place], [place]): first morning voided urine microalbumin/creatinine: 23 ug/g (< 30) Assessment & Plan (06/29/2016 12:53 PM IMPREGNATION OPERATOR): ? Nonspecific vs early diabetic related microalbuminuria 1. Obtain first morning voided urine specimen for microalbumin/creatinine ratio (laboratory requisition given at the time of the office visit). 2. Expectant observation. 3. Return appointment in three months. Controlled type 2 diabetes bisi garcia without complication, without long-term current use of insulin 04/21/2016 Overview (06/29/2016): Apr 15, 2016 - [facility], [address] [place] [address] Na 143 mmol/L, K 4.4 mmol/L, Cl [...] months. Assessment & Plan (06/29/2016 12:48 PM IMPREGNATION OPERATOR): Good glycemic control. 1. Metformin 1000 mg bid 2. Home glucose monitoring twice daily. 3. Daily physical exercise (60 minutes daily) to promote weight loss 4. Return appointment in three months. Assessment & Plan (04/21/2016 4:13 PM IMPREGNATION OPERATOR): New onset, probably type II, diabetes [...] mg/dL (< 130) Jul 19, 2016 - [facility] Cholesterol 151 mg/dL (140-199), triglycerides 235 mg/dL (< 150), HDL- cholesterol 37 mg/dL (> 40), LDL-cholesterol 67 (< 130) Assessment & Plan (02/03/2017 2:52 PM CDT): Normal fasting serum cholesterol level in July, 1. Dietary counseling - decrease concentrated sweets/fats Assessment & Plan (06/29/2016 12:45 PM IMPREGNATION OPERATOR): 1. Dietary counseling provided 2. Fasting lipid profile (laboratory requisition given at the time of the office visit). .3 Return appointment in three months. Assessment & Plan (04/21/2016 4:13 PM IMPREGNATION OPERATOR): ? Familial 1. Fasting lipid profile [...] BURGOS) Assessment & Plan (06/29/2016 12:46 PM IMPREGNATION OPERATOR): ? Nonspecific elevation vs evolving BURGOS 1. Repeat serum ALT level (laboratory requisition given at the time of the office visit). 3. Expectant observation. 3. Return appointment in three months. Assessment & Plan (04/21/2016 4:14 PM IMPREGNATION OPERATOR): ? BURGOS 1. Repeat serum AST/ALT in one month. 2. Consider referral to Pediatric Gastroenterology Resolved Problems Problem Noted Date Diagnosed Date Resolved Date Mixed hyperlipidemia 06/29/2016 017 Overview (06/29/2016): Apr 15, 2016 - Elevated blood sugar 04/20/2016 017 Family History Medical History Relation Name Comments Diabetes Maternal Grandmother Asthma Mother Hypercholesterolemia Mother Hypertension Mother Diabetes Paternal Grandfather Relation Name Status Comments Maternal Grandmother Mother Paternal Grandfather Social History Tobacco Use Types Packs/Day Years [...] 02/02/2017 2:37 PM CDT Plan of Treatment Health Maintenance Due Date Last Done Comments PAP SMEAR 2000 PNEUMOCOCCAL VACCINE (1 of 2 - PCV) 2006 HIV SCREENING 2015 HPV VACCINE (1 - 3-dose series) 2015 CHLAMYDIA/GONORRHEA SCREENING 2016 DIABETES RETINOPATHY SCREENING 06/29/2016 DIABETES-FOOT EXAM WITH MONOFILAMENT 06/29/2016 DIABETES-HGB A1C 08/02/2017 02/02/2017, 06/28/2016, 04/20/2016 DIABETES-NEPHROPATHY 02/02/2018 02/02/2017, 04/20/2016 HEPATITIS C SCREENING 04/06/2018 DIABETES-SERUM CREATININE 04/10/20182016, 04/20/2016 DTAP/TDAP/TD VACCINES (1 - Tdap) 2019 HEPATITIS B VACCINE (1 of 3 - 19+ 3-dose series) 2019 DEPRESSION SCREENING 06/05/2023 COVID-19 VACCINE (1 - 2023-2 5 season) 2024 INFLUENZA VACCINE (#1) 2024 ZOSTER VACCINE (1 of 2) 2050 HIB VACCINE Aged Out No longer eligi ble based on patient's age to complete this topic MENINGOCOCCAL VACCINE Aged Out No brianna kelly eligible based on patient's age to complete this topic Procedures Procedure Name Priority Date/Time Associated Diagnosis [...] A1c POCT 6.8(A) 3.4 - 6.1 % [facility] POCT TESTING QC Verified Yes Yes [facility] PO CT TESTING Blood BLOOD SPECIMEN / Unknown 02/02/2017 2:46 PM CDT Deon Monteiro MD LAB - POINT OF CARE ORDERABLES Performing Organization Address City/State/[facility] Co de Phone Number [facility] POCT TESTING [facility] [address] [phone] * (ABNORMAL) MICROALB/CREAT RATIO URINE RANDOM PANEL (02/02/2017 2:38 PM CDT) Creatinine Urine 103.98 mg/dL 02/03/20 17 4:18 PM CDT [facility] Microalbumin Urine 3.3(H) <1.7 mg/dL 02/02/2017 4:18 PM CDT [facility] Microalbumin/Crea tinine Ratio 32(H) <30 mg/g 02/02/2017 4:18 PM CDT [facility] Urine URINE SPECIMEN OBTAINED BY CLEAN CATCH PROCEDURE / Unknown Collection / Unknown 02/02/2017 2:38 PM CDT 02/02/2017 3:10 PM CDT Deon Monteiro MD LAB - URINE CHEMISTR Y ORDERABLES [facility] [address] [place] [address] * (ABNORMAL) COMPREHENSIVE METABOLIC PANEL (02/02/2017 2:38 PM CDT) Glucose 208(H) 70 - 105 mg/dL 02/02/2017 4:07 PM T [facility] Sodium 136 136 - 145 mmol/L 02/02/2017 4:07 PM T [facility] Potassium 4.0 3.5 - 5.1 mmol/L 02/02/2017 4:07 PM [facility] Chloride 101 98 - 107 mmol/L 02/02/2017 4:07 PM [facility] CO2 26 20 - 28 mmol/L 02/02/2017 4:07 PM [facility] Calcium 9.75 9.08 - 10.48 mg/dL 02/02/2017 4:07 PM [facility] Anion Gap 9 5 - 20 mmol/L 02/02/2017 4:07 PM [facility] BUN 14.0 5.3 - 18.7 mg/dL 02/02/2017 4:07 PM [facility] Creatinine 0.50(L) 0.61 - 1.07 mg/dL 02/02/2017 4:07 PM [facility] Alkaline Phosphatase 74(L) 100 - 390 U/L 02/02/2017 4:07 PM [facility] ALT 68(H) 8 - 65 U/L 02/02/2017 4:07 PM [facility] AST 48(H) 3 - 35 U/L 02/02/2017 4:07 PM [facility] Protein Total 8.1 6.3 - 8.2 gm/dL 02/02/2017 4:07 PM [facility] Albumin 4.5 3.3 - 4.9 gm/dL 02/02/2017 4:07 PM [facility] Bilirubin Total 0.3 0.3 - 1.2 mg/dL 02/02/2017 4:07 PM CDT [facility] eGFR by MDRD mL/min/1. 73m2 02/02/2017 4:07 PM CDT [facility] Comment: eGFR calculations are not performed for children under 18 years old. eGFR by MDRD mL/min/1. 73m2 02/02/2017 4:07 PM CDT [facility] Comment: eGFR calculations are not performed for children under 18 years old. Blood BLOOD SPECIMEN / Unknown Venipuncture / Unknown 02/02/2017 2:38 PM CDT 02/02/2017 3:15 PM CDT Deon Monteiro MD LAB - CHEMISTRY NICOLA HARTMAN [facility] [address] [place] [address] from Last 3 Months or Most Recently Relevant to Health Maintenance Care Teams Assistant Men'S Soccer Coach Relationship Specialty Start Date End Date Michael Colorado MD [address] [place] [address] PCP - General Pediatrics 04/20/16
--- OUTSIDE RECORDS SUMMARY | 2024-05-25 06:26 | XMS_ITS | Encounter Summary ---
Author Organization [facility] Address [address] [place] [address] Care Team Providers Care Lawyer Criminal Name Role Phone Michael Colorado MD Primary Care Provider Reason for Visit * Reason Onset Date Comments Results 04/27/2016 Please call mom with results Encounter Details Date Type Department Care Team (Late st Contact Info) Description 04/27/2016 Telephone [facility] Pediatrics - Endocrinology [address] [place] [address] Deon Monteiro MD [address] [place] [id number] Results (Please call mom with results) Social History Tobacco Use Types Packs/Day Years Used Date Smoking Tobacco: Never Sex and Gender Information Value Date Recorded Sex Assigned at Not on file Gender Identity Not on file Sexual Orientation Not on file documented as of this encounter Plan of Treatment Not on file documented as of this encounter Visit Diagnoses Not on filedocumented in this encounter Care Teams Lawyer Criminal Relationship Specialty Start Date End Date Michael Colorado MD [address] [facility] [address] [place] [address] PCP - General Pediatrics 04/20/16 documented as of this encounter
--- OUTSIDE RECORDS SUMMARY | 2024-05-25 06:26 | XMS_ITS | Encounter Summary ---
Author Organization [facility] Address [address] [facility] [place] [address] Care Team Providers Care Systems Analyst Name Role Phone Michael Colorado MD Primary Care Provider [phone] Reason for Visit * Reason Onset Date Comments Results 05/20/2016 Please give mom a call regarding lab results. Encounter Details Date Type Department Care Team (Late st Contact Info) Description 05/20/2016 Telephone [facility] Pediatrics - Endocrinology [address] [place] [address]. [place] [address] Deon Monteiro MD [address] [place] [id number] Results (Please give mom a call regarding lab results.) Social History Tobacco Use Types Packs/Day Years Used Date Smoking Tobacco: Never Sex and Gender Information Value Date Recorded Sex Assigned at Not on file Gender Identity Not on file Sexual Orientation Not on file documented as of this encounter Miscellaneous Notes * Telephone Encounter - Deon Monteiro MD - 05/27/2016 1:28 PM CST D/w grandmotherThony Sandoval having trouble with diarrhea while taking medication. Adv: try one pill bid with food (or one pill daily with food if two pills bid unsuccessful); reschedule missed appt. Deon Monteiro MD RANCE CHECKER documented in this encounter Plan of Treatment Not on file documented as of this encounter Visit Diagnoses Not on filedocumented in this encounter Care Teams Systems Analyst Relationship Specialty Start Date End Date Michael Colorado MD [address] [facility] [address] [place] [address] PCP - General Pediatrics 04/20/16 documented as of this encounter
--- OUTSIDE RECORDS SUMMARY | 2024-05-25 06:27 | XMS_ITS | Encounter Summary ---
Author Organization [facility] Address Formerly [facility], [id number] [facility]. [place], [place] [id number] [place] [id number] Care Team Providers Care Publications Production Supervisor Name Role Phone Gerber Betts DO Primary Care Provider + Encounter Details Date Type Department Care Team (Latest Contact Info) Description 06/13/2023 Scan [facility] HEALTH INFO SRVCS Scanned, Doc Med Group Social History Tobacco Use Types Packs/Day Years Used Date Smoking Tobacco: Never Passive Smoke Exposure: Never Smokeless Tobacco: Never Alcohol Use Standard Drinks/Week Comments Yes 1 (1 standard drink = 0.6 oz pur e alcohol) Occasional PHQ-2 Answer Date Recorded Patient Health Questionnaire-2 Score 2 06/13/2023 Comments No Sex and Gender Information Value Date Recorded Sex Assigned at Not on file Legal Sex Female 2:17 PM CDT Gender Identity Not on file Sexual Orientation Not on file documented as of this encounter Plan of Treatment Not on file documented as of this encounter Visit Diagnoses Not on filedocumented in this encounter Care Teams Publications Production Supervisor Relationship Specialty Start Date End Date Gerber Betts DO [address] [place] [phone] PCP - General FAMILY PRACTICE 06/13/23 documented as of this encounter
--- OUTSIDE RECORDS SUMMARY | 2024-05-25 06:27 | XMS_ITS | Clinical Summary ---
Author Organization [facility] Address [facility]. [place], [place] [address] [place] [id number] Care Team Providers Care Traveling Phlebotomist Name Role Phone Alpesh Gerber Kg LOGAN Primary Care Provider + Allergies Active Allergy Reactions Criticality Noted Date Comments Morphine And Codeine Hives 04/20/2016 Medications albuterol sulfate HFA 108 (90 Base) MCG/ACT inhaler Inhale 2 puffs into the lungs every 6 (six) hours as needed. Active amphetamine-dextro amphetamine XR (ADDERALL XR) 20 MG 24 hr capsule Take by mouth every morning. 3 Active ARIPiprazole (ABILIFY) 5 MG tablet Active cloNIDine (CATAPRES) 0.2 MG tablet Take 1 tablet (0.2 mg total) by mouth nightly at bedtime. 3 Active diclofenac EC (VOLTAREN) 50 MG tablet Take 1 tablet (50 mg total) by mouth 3 (three) times daily as needed. FOR PAIN 3 Active gabapentin (NEURONTIN) 100 MG capsule Take 1 capsule (100 mg total) by mouth 3 (three) times daily. Active insulin detemir (LEVEMIR FLEXTOUCH) 100 UNIT/ML PEN Inject 10 Units into the skin 2 (two) times daily. Active nystatin (MYCOSTATIN) cream Apply topically 2 (two) times daily. 3 Active gabapentin (NEURONTIN) 300 MG capsuleIndications :Type 2 diabetes mellitus with polyneuropathy (CMS/HCC HHS/HCC) Take 1 capsule (300 mg total) by mouth 3 (three) times daily as needed (Neuropathy). 90 capsule 2 4 Active metFORMIN ER (GLUCOPHAGE-XR) 500 MG 24 hr tabletIndications: Type 2 diabetes mellitus with polyneuropathy ([facility]) Take 1 tablet daily for 2 weeks, then take 2 tablets daily there after 60 tablet 2 4 Active Active Problems Problem Noted Date Diagnosed Date Hidradenitis suppurativa 06/13/2023 Bipolar 1 disorder, depressed ([facility]) 06/13/2020 Urine test positive for microalbuminuria 017 Overview (06/13/2023): Apr 20, 2016 - spot urine microalbumin/creatinine: 36 mg/g (< 30) Jul 19, 2016 ([place], [place]): first morning voided urine microalbumin/creatinine: 23 ug/g (< 30) Last Assessment & Plan: ? Nonspecific vs early diabetic related microalbuminuria 1. Obtain first morning voided urine specimen for microalbumin/creatinine ratio (laboratory requisition given at the time of the office visit). 2. Expectant observation. 3. Return appointment in three months. Type 2 diabetes mellitus wit h polyneuropathy ([facility]) 04/21/2016 Overview (06/13/2023): Apr 15, 2016 - [facility], [address] [place], [place] [address] Na 143 mmol/L, K 4.4 mmol/L, Cl [...] cell IgG antibodies < 1:1 (< 1:1). Last Assessment & Plan: 1. Metformin 1000 mg twice daily 2. Measure and record blood glucose level in logbook twice daily 3. Diet/exercise to promote weight loss 4. Return appointment in four months. Hypercholesterolemia 04/21/2016 Overview (06/13/2023): cholesterol 261 mg/dL (100-170); triglyceride 925 mg/dL (140-199), HDL- cholesterol 41 mg/dL (< 150), LDL-cholesterol mg/dL (< 130) Jul 19, 2016 - [facility] Cholesterol 151 mg/dL (140-199), triglycerides 235 mg/dL (< 150), HDL- cholesterol 37 mg/dL (> 40), LDL-cholesterol 67 (< 130) Last Assessment & Plan: Normal fasting serum cholesterol level in July, 1. Dietary counseling - decrease concentrated sweets/fats Elevated transaminase level 04/21/2016 Overview (06/13/2023): Apr 15, 2016 - ALT 107 U/L Jul 19, 2016 - ALT 68 U/L (8-29); AST 34 U/L (14-37) Last Assessment & Plan: 1. Repeat serum AST and ALT 2. 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 ([facility]) 2016 Immunizations Name Administration Dates Next Due Dtap (Acel-Immune) 12/24/2004, 4,10/10/2001,01/2001,2000,2000 Fluzone 6 Months+ Quad (0.5 mL Prefilled Syringe) 06/13/2023 HPV4 (Gardasil) 04/16/2014,02/06/2013,12/03/2012 Hepatitis A (Generic) 12/24/2004 Hepatitis A (Havrix [address]) 01/14/2004 Hepatitis B Pediatric 01/18/2001,2000,11/1999 Hib (Generic) 2000,2000,2000 Hib (PedvaxHIB)3 Dose 10/10/2001 Influenza (Generic) 06/14/2012,02/24/2009,2007 Influenza Adult (Generic) 03/21/2019,04/12/2016, 04/16/2014 MENINGOCOCCAL A C Y&W-135 oligosaccharide (MENVEO) 01/17/2019 MMR (MMRII) 10/04/2005, 4,10/27/2001,07/07 Meningcoccal Group B (Bexser o)(aka Meningitis) 01/17/2019 Meningococcal (Menactra) 12/03/2012 Pneumococcal (Prevnar 7) 07/30/2001,10/03,2000,06/05 Polio IPV (Ipol) 10/04/2005, 4,10/10/2001,01/2001,2000,2000 Tdap (Adacel) 06/13/2023 Tdap (Generic) 12/03/2012 Varicella (Varivax) 12/26/2006,09/26/2006,2000 Family History Medical History Relation Comments Mental Health Father Arthritis Maternal Grandmother Diabetes Maternal Grandmother Hypertension Maternal Grandmother Depression Mother Mental Health Mother Relation Status Comments Father Maternal Grandmother Mother Social History Tobacco Use Types Packs/Day Years [...] Sign Reading Time Taken Comments Blood Pressure 104/66 06/13/2023 8:52 AM [employer] Pulse 66 06/13/2023 8:52 AM [employer] Temperature 36.3 ??C (97.4 ??F) 06/13/2023 8:52 AM CS T Respiratory Rate 16 06/13/2023 8:52 AM [employer] Oxygen Saturation 97% 06/13/2023 8:52 AM [employer] Inhaled Oxygen Concentration - - Weight 87.3 kg (192 lb 6.4 oz) 06/13/2023 8:52 A M [employer] Height 162.6 cm (5' 4 ) 06/13/2023 8:52 AM [employer] Body Mass Index 33.03 06/13/2023 8:52 AM [employer] Plan of Treatment Health Maintenance Due Date Last Done Comments Cervical Cancer Screening Pap Smear (Age 21 to 29) Every 3 Years 2000 Cervical Cancer Screening 2000 Kidney Health Evaluation 2000 Lipid Panel 2000 Annual Physical 2003 Pneumococcal Vaccine: Pediatrics (0 to 5 Years) and At-Risk Patients (6 to 64 Years) (1 of 2 - PCV) 2006 07/30/2001, 2000, 2000, Additional history exists Chlamydia Screening Females ages 16-24 2016 Hepatitis C 2018 Hemoglobin A1C 09/12/2023 06/13/2023 COVID-19 Vaccine ( season) 2024 Influenza Adult (#1) 2024 06/13/2023, 03/21/2019, 04/12/2016, Additional history exists Diabetes: Retinopathy Eye Exam 08/27/2025 08/28/2023 DTaP, Tdap and Td Vaccines (8 - Td or Tdap) 06/13/2033 06/13/2023, 12/03/2012, 12/24/2004, Additional history exists Hepatitis B Vaccines Completed 01/18/2001, 2000, 2000 HPV Vaccines Completed 04/16/2014, 09/2012, 12/03/2012 Meningococcal Vaccine Completed 01/17/2019, 013 RSV Immunizations Under 20 Months Aged Out No longer eligible based on patient's age to complete this topic Procedures Procedure Name Priority Date/Time Associated Diagnosis Comments DIABETIC RETINOPATHY EXAM (NEGATIVE)(SCAN ORDER) Routine 08/28/2023 HEMOGLOBIN, GLYCOSYLATED Routine 06/13/2023 Type 2 diabetes mellitus with polyneuropathy ([facility]) from Last 3 Months or Most Recently Relevant to Health Maintenance Results * DIABETIC RETINOPATHY EXAM (NEGATIVE) (08/28/2023) us Doc Med Group Scanned SCANNING Final Resu lt Performing Organization Address City/[facility] Co de Phone Number [facility] ONBASE * HEMOGLOBIN, GLYCOSYLATED (06/13/2023) HGB A1C 10.5 % [facility] 06/13/2023 us Gerber Betts DO LABORATORY Final Re sult Performing Organization Address City/[facility]/ZIP Co de Phone Number [facility] [address] [place] [address], [place] from Last 3 Months or Most Recently Relevant to Health Maintenance Insurance [employer] Care Teams Traveling Phlebotomist Relationship Specialty Start Date End Date Gerber Betts DO [address] [place] [phone] PCP - General FAMILY PRACTICE 06/13/23
--- OUTSIDE RECORDS SUMMARY | 2024-05-25 06:27 | XMS_ITS | Encounter Summary ---
Author Organization [facility] Address [address] [place] [address]. [place], [place] [address] [place] [address] Care Team Providers Care Clothes Shaker Name Role Phone Gerber Betts DO Primary Care Provider + Reason for Visit * Reason Comments Dilated Eye Exam (SCAN) Encounter Details Date Type Department Care Team ([facility] Contact Info) Description 08/28/2023 Scan HEALTH INFO SRVCS Scanned, Doc Med Group Dilated Eye Exam (SCAN) Social History Tobacco Use Types Packs/Day Years [...] DIABETIC RETINOPATHY EXAM (NEGATIVE)(SCAN ORDER) Routine 08/28/2023 documented in this encounter Results * DIABETIC RETINOPATHY EXAM (NEGATIVE) (08/28/2023) us Doc Med Group Scanned SCANNING Final Resu lt [facility] documented in this encounter Visit Diagnoses Not on filedocumented in this encounter Care Teams Clothes Shaker Relationship Specialty Start Date End Date Gerber Betts DO [facility] [place] [address] PCP - General FAMILY PRACTICE 06/13/23 documented as of this encounter
--- OUTSIDE RECORDS SUMMARY | 2024-05-25 06:27 | XMS_ITS | Encounter Summary ---
Author Organization [facility] - [facility] Address [facility] access hospital[facility]. [place], [place] [id number] [place] [id number] Care Team Providers Care Art Tracer Name Role Phone Gerber Betts DO Primary Care Provider + Encounter Details Date Type Department Care Team (Latest Contact Info) Description 06/13/2023 Travel Social History Tobacco Use Types Packs/Day Years [...] on filedocumented in this encounter Care Teams Art Tracer Relationship Specialty Start Date End Date Gerber Betts DO [address] [place] [id number] PCP - General FAMILY PRACTICE 06/13/23 documented as of this encounter
--- OUTSIDE RECORDS SUMMARY | 2024-05-25 06:28 | XMS_ITS | Encounter Summary ---
Author Organization [facility] Address [facility]. [place], [place] [id number] [place] [id number] Care Team Providers Care Care Center Manager Name Role Phone Gerber Betts DO Primary Care Provider + Reason for Visit * Reason Comments Numbness The patient has DM2 and neuropathy. The patient states she would like to discuss getting a handicap placard. Encounter Details Date Type Department Care Team (Late st Contact Info) Description 06/13/2023 8:40 AM PROCESSING TECH Office Visit [facility] Family [facility] Internal Medicine [address] [id number] Gerber Betts DO [address] [place] [address] [phone] Numbness (The patient has DM2 and neuropathy. The patient states she would like to discuss getting a handicap placard. ) Social History Tobacco Use Types Packs/Day Years [...] Comments Blood Pressure 104/66 06/13/2023 8:52 AM PROCESSING TECH Pulse 66 06/13/2023 8:52 AM PROCESSING TECH Temperature 36.3 ??C (97.4 ??F) 06/13/2023 8:52 AM CS T Respiratory Rate 16 06/13/2023 8:52 AM PROCESSING TECH Oxygen Saturation 97% 06/13/2023 8:52 AM PROCESSING TECH Inhaled Oxygen Concentration - - Weight 87.3 kg (192 lb 6.4 oz) 06/13/2023 8:52 A M PROCESSING TECH Height 162.6 cm (5' 4 ) 06/13/2023 8:52 AM PROCESSING TECH Body Mass Index 33.03 06/13/2023 8:52 AM PROCESSING TECH documented in this encounter Progress Notes * Lulu Chapin MA - 06/13/2023 8:40 AM CST 1. Are you allergic to eggs, chicken or chicken feathers? No 2. Do you currently have an illness or fever? No 3. Have you ever had an allergic reaction to the influenza vaccine? No 4. Do you have Guillain-Davidson Syndrome? No Flu vaccine administered in Right Deltoid. No flashback seen and no adverse reactions were observedwhile the patient was in the clinic. Pt left clinic in no acute distress. Verified by: TLL. ESSING TECH * Gerber Betts DO - 06/13/2023 8:40 AM CST Images from the original note were not included. GENERAL OFFICE VISIT Encounter Date: 06/13/2023 Chief Complaint: 23-year-old female presents for Numbness (The patient has DM2 and neuropathy. The patient states she would like to discuss getting a handicap placard. ) HPI: Patient has Type 2 Diabetes. Patient has had diabetes for multiple years. Medications include Levemir 10 units BID. Pt was on metformin previously. BS logs range: elevated. Patient's last eye exam was 07/2022. Current symptoms include numbness in feet bilateral. She is on gabapentin, which helps mildly. She notes even 25 feet she will have overwhelming symptoms. 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 HGB A1C Date Value Ref Range Status 06/13/2023 10.5 % Final Pt has asthma. Pt notes it is mostly exercise induced since initial diagnosis. She uses albuterol as needed. Pt has multiple psychiatric diagnoses. Pt has been seeing [facility] psychiatry for ADHD, Anxiety, and Bipolar 1 with depression. Pt is on Adderall XR, Abilify, and clonidine at this time. Pt has hiradentitis suppurativa. Pt has nystatin cream. She is stable today. Review of Systems Constitutional: Negative for fever. Respiratory: Negative for shortness of breath. Cardiovascular: Negative for chest pain. 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 No pertinent surgical history. Family History Problem Relation Name Age of Onset Depression [facility] Mother Odette [facility] Father Percy lala Arthritis Maternal Grandmother Iesha bonnie Diabetes Maternal Grandmother Iesha nicole Hypertension Maternal Grandmother Iesha bonnie Social History Socioeconomic History Marital status: Single Spouse name: Not on file Number of children: 0 Years of education: Not on file Highest education level: Not on file Occupational History Not on file Tobacco Use Smoking status: Never Passive exposure: Never Smokeless tobacco: Never Vaping Use Vaping Use: Never used Substance and Sexual Activity Alcohol use: Yes Alcohol/week: 1.0 standard drink of alcohol Types: 1 Standard drinks or equivalent per week Comment: Occasional Drug use: Not Currently Types: Marijuana Sexual activity: Yes Partners: Male control/protection: Implant Other Topics Concern Not on file Social History Narrative Not on file Social Determinants of Health Financial Resource Strain: Not on file Food Insecurity: Not on file Transportation Needs: Not on file Physical Activity: Not on file Stress: Not on file Social Connections: Not on file Intimate Partner Violence: Not on file Housing Stability: Not on file Immunization History Administered Date(s) Administered Dtap (Acel-Immune) 2000, 2000, 2000, 10/10/2001, 04/20/2004, 12/24/2004 Fluzone 6 Months+ Quad (0.5 mL Prefilled Syringe) 06/13/2023 HPV4 (Gardasil) 12/03/2012, 02/06/2013, 04/16/2014 Hepatitis A (Generic) 12/24/2004 Hepatitis A (Havrix [address]) 01/14/2004 Hepatitis B Pediatric 2000, 2000, 01/18/2001 Hib (Generic) 2000, 2000, 2000 Hib (PedvaxHIB)3 Dose 10/10/2001 Influenza 04/17/2008, 02/24/2009, 06/14/2012 Influenza Adult (Generic) 04/16/2014, 04/12/2016, 03/21/2019 MENINGOCOCCAL A C Y&W-135 oligosaccharide (MENVEO) 01/17/2019 MMR (MMRII) 07/30/2001, 10/27/2001, 04/20/2004, 10/04/2005 Meningcoccal Group B (Bexsero)(aka Meningitis) 01/17/2019 Meningococcal (Menactra) 12/03/2012 Pneumococcal (Prevnar 7) 2000, 2000, 2000, 07/30/2001 Polio IPV (Ipol) 2000, 2000, 2000, 10/10/2001, 04/20/2004, 10/04/2005 Tdap (Adacel) 06/13/2023 Tdap (Generic) 12/03/2012 Varicella (Varivax) 04/12/2001, 09/26/2006, 12/26/2006 Current Outpatient Medications Medication Sig Dispense Refill albuterol sulfate HFA 108 (90 Base) MCG/ACT inhaler Inhale 2 puffs into the lungs every 6 (six) hours as needed. amphetamine-dextroamphetamine XR (ADDERALL XR) 20 MG 24 hr capsule Take by mouth every morning. ARIPiprazole (ABILIFY) 5 MG tablet cloNIDine (CATAPRES) 0.2 MG tablet Take 1 tablet (0.2 mg total) by mouth nightly at bedtime. diclofenac EC (VOLTAREN) 50 MG tablet Take 1 tablet (50 mg total) by mouth 3 (three) times daily asneeded. FOR PAIN gabapentin (NEURONTIN) 100 MG capsule Take 1 capsule (100 mg total) by mouth 3 (three) times daily. gabapentin (NEURONTIN) 300 MG capsule Take 1 capsule (300 mg total) by mouth 3 (three) times daily as needed (Neuropathy). 90 capsule 2 insulin detemir (LEVEMIR FLEXTOUCH) 100 UNIT/ML PEN Inject 10 Units into the skin 2 (two) times daily. metFORMIN ER (GLUCOPHAGE-XR) 500 MG 24 hr tablet Take 1 tablet daily for 2 weeks, then take 2 tablets daily there after 60 tablet 2 nystatin (MYCOSTATIN) cream Apply topically 2 (two) times daily. No current facility-administered medications for this visit. Current Outpatient Medications on File Prior to Visit Medication Sig albuterol sulfate HFA 108 (90 Base) MCG/ACT inhaler Inhale 2 puffs into the lungs every 6 (six) hours as needed. amphetamine-dextroamphetamine XR (ADDERALL XR) 20 MG 24 hr capsule Take by mouth every morning. ARIPiprazole (ABILIFY) 5 MG tablet cloNIDine (CATAPRES) 0.2 MG tablet Take 1 tablet (0.2 mg total) by mouth nightly at bedtime. diclofenac EC (VOLTAREN) 50 MG tablet Take 1 tablet (50 mg total) by mouth 3 (three) times daily asneeded. FOR PAIN gabapentin (NEURONTIN) 100 MG capsule Take 1 capsule (100 mg total) by mouth 3 (three) times daily. insulin detemir (LEVEMIR FLEXTOUCH) 100 UNIT/ML PEN Inject 10 Units into the skin 2 (two) times daily. nystatin (MYCOSTATIN) cream Apply topically 2 (two) times daily. No current facility-administered medications on file prior to visit. Review of patient's allergies indicates: Allergen Reactions Morphine And Related Hives Objective: Filed Vitals: 06/13/23 0852 BP: 104/66 Pulse: 66 Resp: 16 Temp: 97.4 ??F (36.3 ??C) TempSrc: Skin SpO2: 97% Weight: 87.3 kg (192 lb 6.4 oz) Height: 1.626 m (5' 4 ) Physical Exam Vitals and nursing note reviewed. HENT: Head: Normocephalic and atraumatic. Right Ear: External ear normal. Left Ear: External ear normal. Mouth/Throat: Pharynx: No oropharyngeal exudate. Eyes: General: No scleral icterus. Conjunctiva/sclera: Conjunctivae normal. Cardiovascular: Rate and Rhythm: Normal rate and regular rhythm. Heart sounds: Normal heart sounds. No murmur heard. No friction rub. No gallop. Pulmonary: Effort: Pulmonary effort is normal. No respiratory distress. Breath sounds: Normal breath sounds. No wheezing or rales. Abdominal: Palpations: Abdomen is soft. Tenderness: There is no abdominal tenderness. Musculoskeletal: Cervical back: Neck supple. Lymphadenopathy: Cervical: No cervical adenopathy. Skin: General: Skin is warm and dry. Findings: No rash. Neurological: Mental Status: She is alert and oriented to person, place, and time. Psychiatric: Mood and Affect: Mood and affect normal. Assessment & Plan: Michelle was seen today for numbness. Diagnoses and all orders for this visit: Encounter to establish care with new doctor Uncontrolled type 2 diabetes mellitus with hyperglycemia ([facility]) ([facility]) Type 2 diabetes mellitus with polyneuropathy ([facility]/HCC) ([facility]) - HEMOGLOBIN, GLYCOSYLATED - COLLECT.CAPILLARY (FNGR,HEEL,EAR) - gabapentin (NEURONTIN) 300 MG capsule; Take 1 capsule (300 mg total) by mouth 3 (three) times daily as needed (Neuropathy). - CBC W/DIFF AUTOMATED; Future - LIPID PANEL; Future - TSH W/REFLEX; Future - COMPREHENSIVE METABOLIC PANEL; Future - ALBUMIN URINE RANDOM; Future - HEPATITIS C ANTIBODY ([facility] ONLY); Future - CBC W/DIFF AUTOMATED - LIPID PANEL - TSH W/REFLEX - COMPREHENSIVE METABOLIC PANEL - ALBUMIN URINE RANDOM - HEPATITIS C ANTIBODY ([facility] ONLY) - metFORMIN ER (GLUCOPHAGE-XR) 500 MG 24 hr tablet; Take 1 tablet daily for 2 weeks, then take 2 tablets daily there after Need for immunization against influenza - [76221] FLU VACC QUAD 6 MONTHS+ 0.5 ML (SINGLE DOSE SYRINGE FLUZONE, FLUARIX, FLULAVAL OR SINGLE DOSE VIAL FLUZONE) Need for ziuvltxorp-rnummdn-gfrgxeawx (Tdap) vaccine - [68270] Adacel (Tdap) Annual physical exam - CBC W/DIFF AUTOMATED; Future - LIPID PANEL; Future - TSH W/REFLEX; Future - COMPREHENSIVE METABOLIC PANEL; Future - ALBUMIN URINE RANDOM; Future - HEPATITIS C ANTIBODY ([facility] ONLY); Future - CBC W/DIFF AUTOMATED - LIPID PANEL - TSH W/REFLEX - COMPREHENSIVE METABOLIC PANEL - ALBUMIN URINE RANDOM - HEPATITIS C ANTIBODY ([facility] ONLY) Need for hepatitis C screening test - CBC W/DIFF AUTOMATED; Future - LIPID PANEL; Future - TSH W/REFLEX; Future - COMPREHENSIVE METABOLIC PANEL; Future - ALBUMIN URINE RANDOM; Future - HEPATITIS C ANTIBODY ([facility] ONLY); Future - CBC W/DIFF AUTOMATED - LIPID PANEL - TSH W/REFLEX - COMPREHENSIVE METABOLIC PANEL - ALBUMIN URINE RANDOM - HEPATITIS C ANTIBODY ([facility] ONLY) Screening for lipid disorders - CBC W/DIFF AUTOMATED; Future - LIPID PANEL; Future - TSH W/REFLEX; Future - COMPREHENSIVE METABOLIC PANEL; Future - ALBUMIN URINE RANDOM; Future - HEPATITIS C ANTIBODY ([facility] ONLY); Future - CBC W/DIFF AUTOMATED - LIPID PANEL - TSH W/REFLEX - COMPREHENSIVE METABOLIC PANEL - ALBUMIN URINE RANDOM - HEPATITIS C ANTIBODY ([facility] ONLY) Screening for endocrine, metabolic and immunity disorder - CBC W/DIFF AUTOMATED; Future - LIPID PANEL; Future - TSH W/REFLEX; Future - COMPREHENSIVE METABOLIC PANEL; Future - ALBUMIN URINE RANDOM; Future - HEPATITIS C ANTIBODY ([facility] ONLY); Future - CBC W/DIFF AUTOMATED - LIPID PANEL - TSH W/REFLEX - COMPREHENSIVE METABOLIC PANEL - ALBUMIN URINE RANDOM - HEPATITIS C ANTIBODY ([facility] ONLY) Bipolar 1 disorder, depressed ([facility]) ([facility]) Hidradenitis suppurativa Discussion/Summary: Will increase gabapentin today 300 mg 3 times daily. Will add on metformin as per above; discussed side effect profiles for both above issues. Strongly recommend lifestyle changes including diet and exercise. Patient will need to continue follow-up with psychiatry given her multiple above conditions. Will order labs per above. Will give flu shot and Tdap today. Continue other medications as prescribed. Will have patient follow-up in 2 months for repeat assessment. Patient verbalized understanding. Gerber Betts DO ESSING TECH documented in this encounter Plan of Treatment Scheduled Orders Name Type Priority Associated Diagnoses Orde r Schedule CBC W/DIFF AUTOMATED Lab Routine Type 2 diabetes mellitus with polyneuropathy ([facility]CC [facility]/HCC) Annual physical exam Need for hepatitis C screening test Screening for lipid disorders Screening for endocrine, metabolic and immunity disorder Expected: 06/13/2023, Expires: 06/13/2024 LIPID PANEL Lab Routine Type 2 diabetes mellitus with polyneuropathy ([facility]/HCC) Annual physical exam Need for hepatitis C screening test Screening for lipid disorders Screening for endocrine, metabolic and immunity disorder Expected: 06/13/2023, Expires: 06/13/2024 TSH W/REFLEX Lab Routine Type 2 diabetes mellitus with polyneuropathy ([facility]HS/HCC) Annual physical exam Need for hepatitis C screening test Screening for lipid disorders Screening for endocrine, metabolic and immunity disorder Expected: 06/13/2023, Expires: 06/13/2024 COMPREHENSIVE METABOLIC PANEL Lab Routine Type 2 diabetes mellitus with polyneuropathy ([facility]/HCC) Annual physical exam Need for hepatitis C screening test Screening for lipid disorders Screening for endocrine, metabolic and immunity disorder Expected: 06/13/2023, Expires: 06/13/2024 ALBUMIN URINE RANDOM Lab Routine Type 2 diabetes mellitus with polyneuropathy ([facility]/HCC) Annual physical exam Need for hepatitis C screening test Screening for lipid disorders Screening for endocrine, metabolic and immunity disorder Expected: 06/13/2023, Expires: 06/13/2024 HEPATITIS C ANTIBODY ([facility] ONLY) Lab Routine Type 2 diabetes mellitus with polyneuropathy ([facility]) Annual physical exam Need for hepatitis C screening test Screening for lipid disorders Screening for endocrine, metabolic and immunity disorder Expected: 06/13/2023, Expires: 06/13/2024 documented as of this encounter Procedures Procedure Name Priority Date/Time Associated Diagnosis Comments COLLECT.CAPILLARY (FNGR,HEEL,EAR) Routine 06/13/2023 9:03 AM PROCESSING TECH Type 2 diabetes mellitus with polyneuropathy ([facility]HS/HCC) HEMOGLOBIN, GLYCOSYLATED Routine 06/13/2023 Type 2 diabetes mellitus with polyneuropathy ([facility]) documented in this encounter Results * HEMOGLOBIN, GLYCOSYLATED (06/13/2023) HGB A1C 10.5 % [facility] 06/13/2023 us Gerber Betts DO LABORATORY Final Re sult [facility] [address], documented in this encounter Visit Diagnoses Diagnosis Encounter to establish care with new doctor- Primary Other reasons for seeking consultation Uncontrolled type 2 diabetes mellitus with hyperglycemia ([facility]) Type 2 diabetes mellitus with polyneuropathy ([facility]) Type II or unspecified type diabetes mellitus with neurological manifestations, not stated as uncontrolled Need for immunization against influenza Need for prophylactic vaccination and inoculation against influenza Need for lcwqpiqvgh-glqrgkc-myvyepyyi (Tdap) vaccine Need for prophylactic vaccination with combined lztpwyjqfm-mkthdom-knmqjajef (DTP) vaccine Annual physical exam Routine general medical examination at a health care facility Need for hepatitis C screening test Special screening examination for other specified viral diseases Screening for lipid disorders Screening for endocrine, metabolic and immunity disorder Bipolar 1 disorder, depressed ([facility]) Bipolar I disorder, most recent episode (or current) depressed, unspecified Hidradenitis suppurativa Hidradenitis documented in this encounter Care Teams Care Center Manager Relationship Specialty Start Date End Date Gerber Betts DO [address] [place] [id number] PCP - General FAMILY PRACTICE 06/13/23 documented as of this encounter
--- OUTSIDE RECORDS SUMMARY | 2024-05-25 06:52 | XMS_ITS | Encounter Summary ---
Author Organization [facility] Address [address] [place] [address] Care Team Providers Care Accounts Payable Assistant Name Role Phone Michael Colorado MD Primary Care Provider [phone] Encounter Details Date Type Department Care Team (Latest Contact Info) Description 04/20/2016 2:13 PM EMERGENCY OPERATOR - 04/20/2016 11:59 PM [facility] Hospital Encounter [facility] - [address] [address] Deon Monteiro MD [address] [place] [id number] Discharge Disposition: Home or Self Care Social History Tobacco Use Types Packs/Day Years Used Date Smoking Tobacco: Never Sex and Gender Information Value Date Recorded Sex Assigned at Not on file Gender Identity Not on file Sexual Orientation Not on file documented as of this encounter Medications at Time of Discharge Medication Sig Dispensed Refills Start Date End Date albuterol HFA (PROVENTIL;VENTOLIN;NE OAIR) 108 (90 BASE) MCG/ACT inhaler Inhale 2 Puffs by mouth every 6 hours as needed amphetamine-dextroamph etamine (ADDERALL) 30 MG tablet Take 30 mg by mouth every morning amphetamine-dextroamph etamine XR 24hr (ADDERALL XR) 15 MG capsule Take 15 mg by mouth every morning Blood Glucose Monitoring Suppl ([employer] BLOOD GLUCOSE) W/DEVICE KIT Use as directed [...] on filedocumented in this encounter Care Teams Accounts Payable Assistant Relationship Specialty Start Date End Date Michael Colorado MD [address] [place] [address] PCP - General Pediatrics 04/20/16 documented as of this encounter
--- OUTSIDE RECORDS SUMMARY | 2024-05-25 06:52 | XMS_ITS | Encounter Summary ---
Author Organization [facility] Address [facility] [place] [address] Care Team Providers Care Pourer Bull Ladle Name Role Phone Michael Colorado MD Primary Care Provider [phone] Reason for Visit * Reason Comments Diabetes Encounter Details Date Type Department Care Team (Latest Contact Info) Description 02/02/2017 2:20 PM CDT - 02/02/2017 11:59 PM CDT Hospital Encounter [facility] Pediatrics - Diabetes [address] [address] Deon Monteiro MD [address] [place] [address] [phone] Discharge Disposition: Home or Self Care Social [...] in our outpatient Pediatric Diabetes offices at [facility] on 02/02/2017. As you know, she is a 16 y.o. girl who has had type 2 diabetes mellitus since: Problem Controlled Type 2 Diabetes Mellitus Without Complication, Without Long-Term Current Use of Insulin Apr 15, 2016 - [facility], [address], [place] [address] Na 143 mmol/L, K 4.4 mmol/L, Cl [...] mg/dL (< 130) Jul 19, 2016 - [facility] Cholesterol 151 mg/dL (140-199), triglycerides 235 [...] in times of illness. ??? [facility] Use 1 Each as directed Use to [...] (Z= 2.01) based on CDC 2-20 Years dufoya-fjv-cxu data using vitals from 02/02/2017. 66 %ile (Z= 0.41) based on CDC 2-20 Years sotahjz-rgy-tvt data using vitals from 02/02/2017. Body mass [...] (Z= 2.01) based on CDC 2-20 Years xriidz-cdt-stn data usingvitals from 02/02/2017. Height: 165.5 cm (5' 5.16 ) - 66 %ile (Z= 0.41) based on CDC 2-20 Years rgpybis-byz-jlg data using vitals from 02/02/2017. BMI: 32.86 [...] A1c POCT 6.8(A) 3.4 - 6.1 % [facility] POCT TESTING QC Verified Yes Yes [facility] PO CT TESTING Blood BLOOD SPECIMEN / Unknown 02/02/2017 2:46 PM CDT Deon Monteiro MD LAB - POINT OF CARE ORDERABLES Performing Organization Address City/State/[facility] Co de Phone Number [facility] POCT TESTING [employer] [phone] * (ABNORMAL) MICROALB/CREAT RATIO URINE RANDOM PANEL (02/02/2017 2:38 PM CDT) Creatinine Urine 103.98 mg/dL 02/03/20 17 4:18 PM CDT [facility] Microalbumin Urine 3.3(H) <1.7 mg/dL 02/02/2017 4:18 PM CDT [facility] Microalbumin/Crea tinine Ratio 32(H) <30 mg/g 02/02/2017 4:18 PM CDT [facility] Urine URINE SPECIMEN OBTAINED BY CLEAN CATCH PROCEDURE / Unknown Collection / Unknown 02/02/2017 2:38 PM CDT 02/02/2017 3:10 PM CDT Deon Monteiro MD LAB - URINE CHEMISTR Y ORDERABLES [facility] Marisa Krueger [facility] [place] [address] * (ABNORMAL) LIPID PROFILE (02/02/2017 2:38 PM CDT) Cholesterol 226(H) <170 mg/dL 02/02/2017 4:08 PM CDT [facility] Triglycerides 624(H) 46 - 227 mg/dL 02/02/2017 4:08 PM T [facility] HDL Cholesterol 35(L) >40 mg/dL 7 4:08 PM T [facility] LDL Calculated 66 <100 mg/dL 02/02/2017 4:08 PM T [facility] Comment: Unable to calculate LDL due to elevated Triglycerides, please consider ordering a Direct LDL. VLDL Calculated 125(H) 12 - 38 mg/dL 02/02/2017 4:08 PM T [facility] Comment: Unable to calculate LDL due to elevated Triglycerides, please consider ordering a Direct LDL. Chol HDL Ratio 6.5(H) <=5.0 02/02/2017 4:08 PM T [facility] Blood BLOOD SPECIMEN / Unknown Venipuncture / Unknown 02/02/2017 2:38 PM CDT 02/02/2017 3:15 PM CDT Narrative [facility] - 02/02/2017 4:08 PM CDT Lipid Profile Comment: Adult references ranges are the recommendation of the [place] [employer] , for those patients >18 [...] Monteiro MD LAB - CHEMISTRY NICOLA HARTMAN [facility] Organization Address City/State/ZIP Co de Phone Number [facility] [address] [place] [address] * (ABNORMAL) COMPREHENSIVE METABOLIC PANEL (02/02/2017 2:38 PM CDT) [facility] Glucose 208(H) 70 - 105 mg/dL 02/02/2017 4:07 PM CDT [facility] Sodium 136 136 - 145 mmol/L 02/02/2017 4:07 PM T [facility] Potassium 4.0 3.5 - 5.1 mmol/L 02/02/2017 4:07 PM T [facility] Chloride 101 98 - 107 mmol/L 02/02/2017 4:07 PM T [facility] CO2 26 20 - 28 mmol/L 02/02/2017 4:07 PM [facility] Calcium 9.75 9.08 - 10.48 mg/dL 02/02/2017 4:07 PM T [facility] Anion Gap 9 5 - 20 mmol/L 02/02/2017 4:07 PM T [facility] BUN 14.0 5.3 - 18.7 mg/dL 02/02/2017 4:07 PM [facility] Creatinine 0.50(L) 0.61 - 1.07 mg/dL 02/02/2017 4:07 PM [facility] Alkaline Phosphatase 74(L) 100 - 390 U/L 02/02/2017 4:07 PM [facility] ALT 68(H) 8 - 65 U/L 02/02/2017 4:07 PM [facility] AST 48(H) 3 - 35 U/L 02/02/2017 4:07 PM [facility] Protein Total 8.1 6.3 - 8.2 gm/dL 02/02/2017 4:07 PM [facility] Albumin 4.5 3.3 - 4.9 gm/dL 02/02/2017 4:07 PM [facility] Bilirubin Total 0.3 0.3 - 1.2 mg/dL 02/02/2017 4:07 PM CDT [facility] eGFR by MDRD mL/min/1. 73m2 02/02/2017 4:07 PM CDT [facility] Comment: eGFR calculations are not performed for children under 18 years old. eGFR by MDRD mL/min/1. 73m2 02/02/2017 4:07 PM CDT [facility] Comment: eGFR calculations are not performed for children under 18 years old. Blood BLOOD SPECIMEN / Unknown Venipuncture / Unknown 02/02/2017 2:38 PM CDT 02/02/2017 3:15 PM CDT Deon Monteiro MD LAB - CHEMISTRY NICOLA HARTMAN [facility] [address] [place] [address] documented in this encounter Visit Diagnoses Diagnosis [...] months. documented in this encounter Care Teams Pourer Bull Ladle Relationship Specialty Start Date End Date Michael Colorado MD [address] [facility] [address] [place] [address] PCP - General Pediatrics 04/20/16 documented as of this encounter
--- OUTSIDE RECORDS SUMMARY | 2024-05-25 06:52 | XMS_ITS | Encounter Summary ---
Author Organization [facility] Address [facility] [place] [place], [place] [id number] [place] [address] Care Team Providers Care Railroad Cook Name Role Phone Gerber Betts DO Primary [...] on filedocumented in this encounter Care Teams Railroad Cook Relationship Specialty Start Date End Date Gerber Betts DO [address] [place] [address] PCP - General FAMILY PRACTICE 06/13/23 documented as of this encounter
--- OUTSIDE RECORDS SUMMARY | 2024-05-25 06:52 | XMS_ITS | Encounter Summary ---
Author Organization [facility] Address [address] [facility] [place] [address] Care Team Providers Care Track Moving Machine Operator Name Role Phone Michael Colorado MD Primary Care Provider [phone] Reason for Visit * Reason Comments Diabetes Encounter Details Date Type Department Care Team (Latest Contact Info) Description 06/28/2016 10:36 AM CLAM PICKER - 06/28/2016 11:59 PM CLAM PICKER Hospital Encounter [facility] Pediatrics - Diabetes [address] [address] Deon Monteiro MD [address] [place] [address] [phone] Discharge Disposition: Home or Self Care Social History Tobacco Use Types Packs/Day Years Used Date Smoking Tobacco: Never Sex and Gender Information Value Date Recorded Sex Assigned at Not on file Gender Identity Not on file Sexual Orientation Not on file documented as of this encounter Last Filed Vital Signs Vital Sign Reading Time Taken Comments Blood Pressure 100/70 06/28/2016 10:50 AM CLAM PICKER Pulse - - Temperature - - Respiratory Rate - - Oxygen Saturation - - Inhaled Oxygen Concentration - - Weight 89.2 kg (196 lb 10.4 oz) 017 10:50 AM CLAM PICKER Height 165.5 cm (5' 5.16 ) 06/28/2016 1 0:50 AM CLAM PICKER Body Mass Index 32.57 06/28/2016 10:50 AM CLAM PICKER Body Mass Index Percentile 97.05% 06/28 10:50 AM CLAM PICKER Growth Chart: CDC (Girls, 2- 20 Years) documented in this encounter Medications at Time of Discharge Medication Sig Dispensed Refills Start Date End Date albuterol HFA (PROVENTIL;VENTOLIN;IA OAIR) 108 (90 BASE) MCG/ACT inhaler Inhale [...] in our outpatient Pediatric Diabetes offices at [facility] on 06/28/2016. As you know, she is a 16 y.o. girl who has had type 2 diabetes mellitus since: Problem Urine Test Positive for Microalbuminuria Apr 20, 2016 - spot urine microalbumin/creatinine: 36 mg/g (< 30) Controlled Type 2 Diabetes Mellitus Without Complication, Without Long-Term Current Use of Insulin Apr 15, 2016 - [facility], [address] [place], [place] [address] Na 143 mmol/L, K 4.4 mmol/L, Cl [...] (Z= 2.02) based on CDC 2-20 Years sbynli-agr-nze data using vitals from 06/28/2016. 67 %ile (Z= 0.44) based on CDC - Years ruhhsbh-ikh-avk data using vitals from 06/28/2016. Body mass [...] (Z= 2.02) based on CDC - Years jvwjyo-xev-rri data using vitals from 06/28/2016. Height: 165.5 cm (5' 5.16 ) - 67 %ile (Z= 0.44) based on CDC -20 Years gzndyhh-qmk-uya data using vitals from 06/28/2016. BMI: 32.57 [...] laboratory test results on 06/28/2016 by Deon Monteiro MD. PICKER documented in this encounter Plan of Treatment [...] LAB RESULTS ORDER 08/08/2016 10: 54 PM CLAM PICKER HEMOGLOBIN A1C - POCT (IP) BEAKER Routine 06/28/2016 10:52 AM CLAM PICKER Controlled diabetes mellitus type 1 without complications (HCC) documented in this encounter Results * LAB RESULTS ORDER (08/08/2016 10:54 PM CLAM PICKER) Narrative 08/08/2016 10:54 PM CLAM PICKER Ordered by an unspecified provider. Scanned Document LAB - THERAPEUTIC DR LINO MONITORING ORDERABLES * (ABNORMAL) HEMOGLOBIN A1C - POCT (IP) BEAKER (06/28/2016 10:52 AM CLAM PICKER) Hemoglobin A1c POCT 6.8(A) 3.4 - 6.1 % [facility] POCT TESTING QC Verified Yes Yes [facility] PO CT TESTING Blood BLOOD SPECIMEN / Unknown 06/28/2016 10:52 AM CLAM PICKER Deon Monteiro MD LAB - POINT OF CARE ORDERABLES [facility] POCT TESTING [facility] [phone] documented in this encounter Visit Diagnoses Diagnosis [...] visit). .3 Return appointment in three months. PICKER * Assessment & Plan Note - Deon Monteiro MD - 06/28/2016 11:59 PM CSTAssociated Problem(s): Elevated transaminase level ? Nonspecific elevation vs evolving BURGOS 1. Repeat serum ALT level (laboratory requisition given at the time of the office visit). 3. Expectant observation. 3. Return appointment in three months. PICKER * Assessment & Plan Note - Deon Monteiro MD - 06/28/2016 11:59 PM CSTAssociated Problem(s): Controlled type 2 diabetes mellitus without complication, without long-term current use of insulin (HCC) Good glycemic control. 1. Metformin 1000 mg bid 2. Home glucose monitoring twice daily. 3. Daily physical exercise (60 minutes daily) to promote weight loss 4. Return appointment in three months. PICKER * Assessment & Plan Note - Deon Monteiro MD - 06/28/2016 11:59 PM CSTAssociated Problem(s): Urine test positive for microalbuminuria ? Nonspecific vs early diabetic related microalbuminuria 1. Obtain first morning voided urine specimen for microalbumin/creatinine ratio (laboratory requisition given at the time of the office visit). 2. Expectant observation. 3. Return appointment in three months. PICKER documented in this encounter Care Teams Track Moving Machine Operator Relationship Specialty Start Date End Date Michael Colorado MD [address] [facility] [address] [place] [address] PCP - General Pediatrics 04/20/16 documented as of this encounter
--- OUTSIDE RECORDS SUMMARY | 2024-05-25 06:52 | XMS_ITS | Encounter Summary ---
Author Organization [facility] Address [address] [place] [address] Care Team Providers Care Poultry Husbandman Name Role Phone Michael Colorado MD Primary Care Provider Reason for Visit * Reason Onset Date Comments Results 08/01/2016 Encounter Details Date Type Department Care Team (Late st Contact Info) Description 08/01/2016 Telephone [facility] Pediatrics - Endocrinology [address] [place] [address] Deon Monteiro MD [address] [place] [address] Results Social History Tobacco Use Types Packs/Day Years Used Date Smoking Tobacco: Never Sex and Gender Information Value Date Recorded Sex Assigned at Not on file Gender Identity Not on file Sexual Orientation Not on file documented as of this encounter Plan of Treatment Not on file documented as of this encounter Visit Diagnoses Not on filedocumented in this encounter Care Teams Poultry Husbandman Relationship Specialty Start Date End Date Michael Colorado MD [address] [place] [address] PCP - General Pediatrics 04/20/16 documented as of this encounter
--- OUTSIDE RECORDS SUMMARY | 2024-05-25 06:52 | XMS_ITS | Clinical Summary ---
Author Organization [facility] Address [facility]. [place], [place] [address] [place] [address] Care Team Providers Care Hotel Front Desk Clerk Name Role Phone Alpesh Gerber Kg LOGAN [...] tabletIndications: Type 2 diabetes mellitus with polyneuropathy ([facility]) Take 1 tablet daily for 2 weeks, then take 2 tablets daily there after 60 tablet 2 4 Active Active Problems Problem Noted Date Diagnosed Date Hidradenitis suppurativa 06/13/2023 Bipolar 1 disorder, depressed ([facility]) 06/13/2020 Urine test positive for microalbuminuria 017 Overview (06/13/2023): Apr 20, 2016 - spot urine microalbumin/creatinine: 36 mg/g (< 30) Jul 19, 2016 ([place], [place]): first morning voided urine microalbumin/creatinine: 23 ug/g (< 30) Last Assessment & Plan: ? Nonspecific vs early diabetic related microalbuminuria 1. Obtain first morning voided urine specimen for microalbumin/creatinine ratio (laboratory requisition given at the time of the office visit). 2. Expectant observation. 3. Return appointment in three months. Type 2 diabetes mellitus wit h polyneuropathy ([facility]) 04/21/2016 Overview (06/13/2023): Apr 15, 2016 - [facility], [address] [place], [place] [address] Na 143 mmol/L, K 4.4 mmol/L, Cl [...] mg/dL (< 130) Jul 19, 2016 - [facility] Cholesterol 151 mg/dL (140-199), triglycerides 235 mg/dL [...] associat ed with type 2 diabetes mellitus ([facility]) 2016 Immunizations Name Administration Dates Next Due [...] Comments Blood Pressure 104/66 06/13/2023 8:52 AM BAR FINISH OPERATOR Pulse 66 06/13/2023 8:52 AM BAR FINISH OPERATOR Temperature 36.3 ??C (97.4 ??F) 06/13/2023 8:52 AM CS T Respiratory Rate 16 06/13/2023 8:52 AM BAR FINISH OPERATOR Oxygen Saturation 97% 06/13/2023 8:52 AM BAR FINISH OPERATOR Inhaled Oxygen Concentration - - Weight 87.3 kg (192 lb 6.4 oz) 06/13/2023 8:52 A M BAR FINISH OPERATOR Height 162.6 cm (5' 4 ) 06/13/2023 8:52 AM BAR FINISH OPERATOR Body Mass Index 33.03 06/13/2023 8:52 AM BAR FINISH OPERATOR Plan of Treatment Health Maintenance Due Date [...] 06/13/2023 Type 2 diabetes mellitus with polyneuropathy ([facility]) from Last 3 Months or Most Recently Relevant to Health Maintenance Results * DIABETIC RETINOPATHY EXAM (NEGATIVE) (08/28/2023) [facility] Scanned SCANNING Final Resu lt Performing Organization Address City/[facility] Co de Phone Number [facility] * HEMOGLOBIN, GLYCOSYLATED (06/13/2023) HGB A1C 10.5 % [facility] 06/13/2023 us Gerber Betts DO LABORATORY Final Re sult Performing Organization Address City/[facility]/ZIP Co de Phone Number [facility] [address] [place] [address], [place] from Last 3 Months or Most Recently Relevant to Health Maintenance Insurance [employer] Care Teams Hotel Front Desk Clerk Relationship Specialty Start Date End Date Gerber Betts DO [address] [place] [id number] PCP - General FAMILY PRACTICE 06/13/23
--- OUTSIDE RECORDS SUMMARY | 2024-05-25 06:52 | XMS_ITS | Encounter Summary ---
Author Organization [facility] Address Formerly [facility]6 [facility]. [place], [place] [address] [place] [address] Care Team Providers Care Wool Cleaner Name Role Phone Gerber Betts DO Primary Care Provider + Reason for Visit * Reason Comments Numbness The patient has DM2 and neuropathy. The patient states she would like to discuss getting a handicap placard. Encounter Details Date Type Department Care Team (Late st Contact Info) Description 06/13/2023 8:40 AM PRODUCTION ROUSTABOUT Office Visit [facility] Family & Internal Medicine [address] [phone] Gerber Betts DO [address] [place] [address] [phone] Numbness (The patient has DM2 and neuropathy. [...] Comments Blood Pressure 104/66 06/13/2023 8:52 AM PRODUCTION ROUSTABOUT Pulse 66 06/13/2023 8:52 AM PRODUCTION ROUSTABOUT Temperature 36.3 ??C (97.4 ??F) 06/13/2023 8:52 AM CS T Respiratory Rate 16 06/13/2023 8:52 AM PRODUCTION ROUSTABOUT Oxygen Saturation 97% 06/13/2023 8:52 AM PRODUCTION ROUSTABOUT Inhaled Oxygen Concentration - - Weight 87.3 kg (192 lb 6.4 oz) 06/13/2023 8:52 A M PRODUCTION ROUSTABOUT Height 162.6 cm (5' 4 ) 06/13/2023 8:52 AM PRODUCTION ROUSTABOUT Body Mass Index 33.03 06/13/2023 8:52 AM PRODUCTION ROUSTABOUT documented in this encounter Progress Notes * Lulu Chapin MA - 06/13/2023 8:40 AM CST 1. Are you allergic to eggs, chicken or chicken feathers? No 2. Do you currently have an illness or fever? No 3. Have you ever had an allergic reaction to the influenza vaccine? No 4. Do you have Guillain-Dell Syndrome? No Flu vaccine administered in Right Deltoid. No flashback seen and no adverse reactions were observedwhile the patient was in the clinic. Pt left clinic in no acute distress. Verified by: TLL. UCTION ROUSTABOUT * Gerber Betts DO - 06/13/2023 8:40 [...] will have overwhelming symptoms. 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 HGB A1C Date Value Ref Range Status 06/13/2023 10.5 % Final Pt has asthma. Pt notes it is mostly exercise induced since initial diagnosis. She uses albuterol as needed. Pt has multiple psychiatric diagnoses. Pt has been seeing [facility] psychiatry for ADHD, Anxiety, and Bipolar 1 with depression. Pt is on Adderall XR, Abilify, and clonidine at this time. Pt has hiradentitis suppurativa. Pt has nystatin cream. She is stable today. Review of Systems Constitutional: Negative for fever. Respiratory: Negative for shortness of breath. Cardiovascular: Negative for chest pain. 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 No pertinent surgical history. Family History Problem Relation Name Age of Onset Depression [facility] Mother Odette [...] type 2 diabetes mellitus with hyperglycemia ([facility]CC) ([facility]) Type 2 diabetes mellitus with polyneuropathy ([facility]/HCC) ([facility]) - HEMOGLOBIN, GLYCOSYLATED - COLLECT.CAPILLARY (FNGR,HEEL,EAR) - [...] after Need for immunization against influenza - [89599] FLU VACC QUAD 6 MONTHS+ 0.5 ML (SINGLE DOSE SYRINGE FLUZONE, FLUARIX, FLULAVAL OR SINGLE DOSE VIAL FLUZONE) Need for rywjmkcwat-ivnzwxg-mneruecnx (Tdap) vaccine - [73283] Adacel (Tdap) Annual physical exam - CBC [...] ([facility] ONLY) Bipolar 1 disorder, depressed ([facility]CC) ([facility]/HCC) Hidradenitis suppurativa Discussion/Summary: Will increase gabapentin today [...] assessment. Patient verbalized understanding. Gerber Betts DO UCTION ROUSTABOUT documented in this encounter Plan of Treatment Scheduled Orders Name Type Priority Associated Diagnoses Orde r Schedule CBC W/DIFF AUTOMATED Lab Routine Type 2 diabetes mellitus with polyneuropathy ([facility]/HCC [facility]/HCC) Annual physical exam Need for hepatitis C screening test Screening for lipid disorders Screening for endocrine, metabolic and immunity disorder Expected: 06/13/2023, Expires: 06/13/2024 LIPID PANEL Lab Routine Type 2 diabetes mellitus with polyneuropathy ([facility] HHS/HCC) Annual physical exam Need for hepatitis C screening test Screening for lipid disorders Screening for endocrine, metabolic and immunity disorder Expected: 06/13/2023, Expires: 06/13/2024 TSH W/REFLEX Lab Routine Type 2 diabetes mellitus with polyneuropathy ([facility] HHS/HCC) Annual physical exam Need for hepatitis C screening test Screening for lipid disorders Screening for endocrine, metabolic and immunity disorder Expected: 06/13/2023, Expires: 06/13/2024 COMPREHENSIVE METABOLIC PANEL Lab Routine Type 2 diabetes mellitus with polyneuropathy ([facility] HHS/HCC) Annual physical exam Need for hepatitis C screening test Screening for lipid disorders Screening for endocrine, metabolic and immunity disorder Expected: 06/13/2023, Expires: 06/13/2024 ALBUMIN URINE RANDOM Lab Routine Type 2 diabetes mellitus with polyneuropathy ([facility] HHS/HCC) Annual physical exam Need for hepatitis C screening test Screening for lipid disorders Screening for endocrine, metabolic and immunity disorder Expected: 06/13/2023, Expires: 06/13/2024 HEPATITIS C ANTIBODY ([facility] ONLY) Lab Routine Type 2 diabetes mellitus with polyneuropathy ([facility]) Annual physical exam Need for hepatitis C screening test Screening for lipid disorders Screening for endocrine, metabolic and immunity disorder Expected: 06/13/2023, Expires: 06/13/2024 documented as of this encounter Procedures Procedure Name Priority Date/Time Associated Diagnosis Comments COLLECT.CAPILLARY (FNGR,HEEL,EAR) Routine 06/13/2023 9:03 AM PRODUCTION ROUSTABOUT Type 2 diabetes mellitus with polyneuropathy ([facility] HHS/HCC) HEMOGLOBIN, GLYCOSYLATED Routine 06/13/2023 Type 2 diabetes mellitus with polyneuropathy ([facility] HHS/[facility]) documented in this encounter Results * HEMOGLOBIN, GLYCOSYLATED (06/13/2023) HGB A1C 10.5 % [facility] 06/13/2023 us Gerber Betts DO LABORATORY Final Re sult [facility] [address], documented in this encounter Visit Diagnoses Diagnosis Encounter to establish care with new doctor- Primary Other reasons for seeking consultation Uncontrolled type 2 diabetes mellitus with hyperglycemia ([facility]) Type 2 diabetes mellitus with polyneuropathy ([facility]) Type II or unspecified type diabetes mellitus with neurological manifestations, not stated as uncontrolled Need for immunization against influenza Need for prophylactic vaccination and inoculation against influenza Need for yhrkyjbffj-fjxctbm-ndzevzity (Tdap) vaccine Need for prophylactic vaccination with combined qewhmgywud-lsbxlsl-suzgblqmo (DTP) vaccine Annual physical exam Routine general medical examination at a health care facility Need for hepatitis C screening test Special screening examination for other specified viral diseases Screening for lipid disorders Screening for endocrine, metabolic and immunity disorder Bipolar 1 disorder, depressed ([facility]) Bipolar I disorder, most recent episode (or current) depressed, unspecified Hidradenitis suppurativa Hidradenitis documented in this encounter Care Teams Wool Cleaner Relationship Specialty Start Date End Date Gerber Betts DO [address] [place] [id number] PCP - General FAMILY PRACTICE 06/13/23 documented as of this encounter
--- OUTSIDE RECORDS SUMMARY | 2024-05-25 06:52 | XMS_ITS | Encounter Summary ---
Author Organization [facility] Address [address] [facility] [place] [address] Care Team Providers Care Illustrator Set Name Role Phone Michael Colorado MD Primary Care Provider Encounter Details Date Type Department Care Team (Late st Contact Info) Description 02/02/2017 Orders Only [facility] - Endocrinology [address] [place] [address] Deon Monteiro MD [address] [place] [phone] Controlled type 2 diabetes mellitus without complication, [...] A1c POCT 6.8(A) 3.4 - 6.1 % [facility] POCT TESTING QC Verified Yes Yes [facility] PO CT TESTING Blood BLOOD SPECIMEN / Unknown 02/02/2017 2:46 PM CDT Deon Monteiro MD LAB - POINT OF CARE ORDERABLES [facility] POCT TESTING [address] [place] [id number] [place] [address] * (ABNORMAL) LIPID PROFILE (02/02/2017 2:38 PM CDT) [facility] Signature Cholesterol 226(H) <170 mg/dL 02/02/2017 4:08 PM T [facility] Triglycerides 624(H) 46 - 227 mg/dL 02/02/2017 4:08 PM [facility] HDL Cholesterol 35(L) >40 mg/dL 7 4:08 PM [facility] LDL Calculated 66 <100 mg/dL 02/02/2017 4:08 PM [facility] Comment: Unable to calculate LDL due to elevated Triglycerides, please consider ordering a Direct LDL. VLDL Calculated 125(H) 12 - 38 mg/dL 02/02/2017 4:08 PM [facility] Comment: Unable to calculate LDL due to elevated Triglycerides, please consider ordering a Direct LDL. Chol HDL Ratio 6.5(H) <=5.0 02/02/2017 4:08 PM [facility] Blood BLOOD SPECIMEN / Unknown Venipuncture / Unknown 02/02/2017 2:38 PM CDT 02/02/2017 3:15 PM CDT Narrative [facility] - 02/02/2017 4:08 PM T Lipid Profile Comment: Adult references ranges are the recommendation of the [place] [employer] , for those patients >18 [...] - CHEMISTRY ORDE RABLES Performing Organization Address [facility] Co de Phone Number [facility] [address] [place] [address] * (ABNORMAL) MICROALB/CREAT RATIO URINE RANDOM PANEL (02/02/2017 2:38 PM CDT) Creatinine Urine 103.98 mg/dL 02/03/20 17 4:18 PM CDT [facility] Microalbumin Urine 3.3(H) <1.7 mg/dL 02/02/2017 4:18 PM CDT [facility] Microalbumin/Crea tinine Ratio 32(H) <30 mg/g 02/02/2017 4:18 PM CDT [facility] Urine URINE SPECIMEN OBTAINED BY CLEAN CATCH PROCEDURE / Unknown Collection / Unknown 02/02/2017 2:38 PM CDT 02/02/2017 3:10 PM CDT Deon Monteiro MD LAB - URINE CHEMISTR Y ORDERABLES Performing Organization Address [facility] Co de Phone Number [facility] [address] [place] [address] * (ABNORMAL) COMPREHENSIVE METABOLIC PANEL (02/02/2017 2:38 PM CDT) Glucose 208(H) 70 - 105 mg/dL 02/02/2017 4:07 PM T [facility] Sodium 136 136 - 145 mmol/L 02/02/2017 4:07 PM CDT [facility] Potassium 4.0 3.5 - 5.1 mmol/L 02/02/2017 4:07 PM T [facility] Chloride 101 98 - 107 mmol/L 02/02/2017 4:07 PM CDT [facility] CO2 26 20 - 28 mmol/L 02/02/2017 4:07 PM T [facility] Calcium 9.75 9.08 - 10.48 mg/dL 02/02/2017 4:07 PM T [facility] Anion Gap 9 5 - 20 mmol/L 02/02/2017 4:07 PM [facility] BUN 14.0 5.3 - 18.7 mg/dL 02/02/2017 4:07 PM [facility] Creatinine 0.50(L) 0.61 - 1.07 mg/dL 02/02/2017 4:07 PM [facility] Alkaline Phosphatase 74(L) 100 - 390 U/L 02/02/2017 4:07 PM [facility] ALT 68(H) 8 - 65 U/L 02/02/2017 4:07 PM [facility] AST 48(H) 3 - 35 U/L 02/02/2017 4:07 PM [facility] Protein Total 8.1 6.3 - 8.2 gm/dL 02/02/2017 4:07 PM [facility] Albumin 4.5 3.3 - 4.9 gm/dL 02/02/2017 4:07 PM [facility] Bilirubin Total 0.3 0.3 - 1.2 mg/dL 02/02/2017 4:07 PM [facility] eGFR by MDRD mL/min/1. 73m2 02/02/2017 4:07 PM [facility] Comment: eGFR calculations are not performed for children under 18 years old. eGFR by MDRD mL/min/1. 73m2 02/02/2017 4:07 PM [facility] Comment: eGFR calculations are not performed for children under 18 years old. Blood BLOOD SPECIMEN / Unknown Venipuncture / Unknown 02/02/2017 2:38 PM CDT 02/02/2017 3:15 PM CDT Deon Monteiro MD LAB - CHEMISTRY NICOLA HART[facility] Organization Address City/State/[facility] Co de Phone Number [facility] [address] [place] [address] documented in this encounter Visit Diagnoses Diagnosis Controlled type 2 diabetes mellitus without complication, without long-term current use of insulin (HCC)- Primary documented in this encounter Care Teams Illustrator Set Relationship Specialty Start Date End Date Michael Colorado MD [address] [place] [address] PCP - General Pediatrics 11/16/16 documented as of this encounter
--- OUTSIDE RECORDS SUMMARY | 2024-05-25 06:52 | XMS_ITS | Encounter Summary ---
Author Organization [facility] Address [address] [facility] [place] [address] Care Team Providers Care Log Sorter Name Role Phone Michael Colorado MD Primary Care Provider [phone] Reason for Visit * Reason Onset Date Comments Results 04/22/2016 Encounter Details Date Type Department Care Team (Late st Contact Info) Description 04/22/2016 Telephone [facility] Pediatrics - Endocrinology [address] [place] [address]. [place] [address] Deon Monteiro MD [address] [place] [phone] Results Social History Tobacco Use Types Packs/Day [...] taped message at home. Deon Monteiro MD [facility] documented in this encounter Plan of Treatment Not on file documented as of this encounter Visit Diagnoses Diagnosis Acute cystitis without hematuria- Primary Acute cystitis documented in this encounter Care Teams Log Sorter Relationship Specialty Start Date End Date Michael Colorado MD [address] [facility] [address] [place] [address] PCP - General Pediatrics 04/20/16 documented as of this encounter
--- OUTSIDE RECORDS SUMMARY | 2024-05-25 06:52 | XMS_ITS | Encounter Summary ---
Author Organization [facility] Address [address] [facility] [place] [place] [address] Care Team Providers Care Box Toe Buffer Name Role Phone Michael Colorado MD Primary Care Provider Reason for Visit * Reason Onset Date Comments MEDICATION REFILL 04/20/2016 Encounter Details Date Type Department Care Team (Late st Contact Info) Description 04/20/2016 Refill [facility] Pediatrics - Endocrinology [address] [place] [phone] Deon Monteiro MD [address] [place] [phone] MEDICATION REFILL Social History Tobacco Use Types Packs/Day Years Used Date Smoking Tobacco: Never Sex and Gender Information Value Date Recorded Sex Assigned at Not on file Gender Identity Not on file Sexual Orientation Not on file documented as of this encounter Plan of Treatment Not on file documented as of this encounter Visit Diagnoses Not on filedocumented in this encounter Care Teams Box Toe Buffer Relationship Specialty Start Date End Date Michael Colorado MD [address] [facility] [address] [place] [address] PCP - General Pediatrics 04/20/16 documented as of this encounter
--- OUTSIDE RECORDS SUMMARY | 2024-05-25 06:52 | XMS_ITS | Encounter Summary ---
Author Organization [facility] Address [address] [facility] [place] [address] Care Team Providers Care Nail Making Machine Setter Name Role Phone Michael Colorado MD Primary Care Provider [phone] Reason for Visit * Reason Onset Date Comments Results 07/26/2016 Encounter Details Date Type Department Care Team (Late st Contact Info) Description 07/26/2016 Telephone [facility] Pediatrics - Endocrinology [address] [place] [address]. [place] [address] Deon Monteiro MD [address] [place] [phone] Results Social History Tobacco Use Types Packs/Day [...] ratio: 45.8 (< 30) Deon Monteiro MD ILE ARTIST documented in this encounter Plan of Treatment Not on file documented as of this encounter Visit Diagnoses Not on filedocumented in this encounter Care Teams Nail Making Machine Setter Relationship Specialty Start Date End Date Michael Colorado MD [address] [place] [address] PCP - General Pediatrics 04/20/16 documented as of this encounter
--- OUTSIDE RECORDS SUMMARY | 2024-05-25 06:52 | XMS_ITS | Encounter Summary ---
Author Organization [facility] Address [address] [place] [address] Care Team Providers Care Channeler Name Role Phone Michael Colorado MD Primary Care Provider [phone] Reason for Visit * Reason Comments Evaluation possible type 2 Encounter Details Date Type Department Care Team (Latest Contact Info) Description 04/20/2016 11:40 AM [employer] EDUCATION KINDERGARTEN TEACHER - 04/20/2016 2:12 PM SPECIAL EDUCATION KINDERGARTEN TEACHER Hospital Encounter [facility] Pediatrics - Endocrinology [address] [place] [id number] Deon Monteiro MD [address] [place] [address] [phone] Discharge Disposition: Home or Self Care Social History Tobacco Use Types Packs/Day Years Used Date Smoking Tobacco: Never Sex and Gender Information Value Date Recorded Sex Assigned at Not on file Gender Identity Not on file Sexual Orientation Not on file documented as of this encounter Last Filed Vital Signs Vital Sign Reading Time Taken Comments Blood Pressure 126/68 04/20/2016 11:42 AM SPECIAL EDUCATION KINDERGARTEN TEACHER Pulse - - Temperature - - Respiratory Rate - - Oxygen Saturation - - Inhaled Oxygen Concentration - - Weight 89.1 kg (196 lb 6.9 oz) 04/20/20 16 11:42 AM SPECIAL EDUCATION KINDERGARTEN TEACHER Height 169.5 cm (5' 6.73 ) 04/20/2016 1 1:42 AM SPECIAL EDUCATION KINDERGARTEN TEACHER Body Mass Index 31.01 04/20/2016 11:42 AM SPECIAL EDUCATION KINDERGARTEN TEACHER Body Mass Index Percentile 96.27% 04/20 11:42 AM SPECIAL EDUCATION KINDERGARTEN TEACHER Growth Chart: CDC (Girls, 2- 20 Years) documented in this encounter Discharge Instructions * Patient Instructions* Bonnie Mullins, CARL - 04/20/2016 12:22 PM SPECIAL EDUCATION KINDERGARTEN TEACHER Please call with blood sugars in a week. Call to set up with [facility] for new meter and test strips. Start taking metformin at directed. Check blood sugar 4 times a day. Call the office if any further questions. Follow up appointment made. IAL EDUCATION KINDERGARTEN TEACHER documented in this encounter Medications at Time [...] routine and goals discussed. Lori currently has [employer] insurance and will need to contact [facility] [...] made a follow up appointment on 05-20-16. IAL EDUCATION KINDERGARTEN TEACHER * Deon Monteiro MD - 04/20/2016 11:57 AM CST Images from the original note were not included. Lori Landeros and her mother (contact telephone: [phone]) were seen in our outpatient Pediatric Endocrinology offices at [facility] in [place], [place] on 04/20/2016. She is a 16 y.o. 0 m.o. girl who is referred for evaluation of: Problem Diabetes Mellitus, New Onset Apr 15, 2016 - [facility], [address] [place] [id number] Na 143 mmol/L, K 4.4 mmol/L, Cl [...] biochemical abnormalities recently at a routine well rn maternal child visit. She acknowledges nocturia, frequent thirst and urination. She denies weight loss. She is without unexplained constitutional symptoms, including weakness, fatigue, lethargy, fever, rash, cough, vomiting, diarrhea, orheat/cold intolerance. PAST MEDICAL HISTORY History ??? Length: 19 (48.3 cm) Weight: 2240 g (4 lb 15 oz) ??? Delivery Method: ??? Gestation Age: 37 wks ??? Hospital Name: [facility] ??? Hospital Location: [place], [place] Past Medical History Diagnosis Date ??? [...] (Z= 2.03) based on CDC 2-20 Years btxdew-ksz-[id number] data using vitals from 04/20/2016. 86 %ile(Z= 1.07) based on CDC 2-20 Years cymcera-noj-tns data using vitals from 04/20/2016. Body mass [...] Yellow, Dark Yellow Clarity UA Clear Specific [place] UA >=1.030 1.005 - 1.030 pH UA [...] with out diabetes nurse educator and clinical tank cooper to reviewmedication taking, side effects, home glucose [...] weight and diabetes mellitus. Deon Monteiro MD [phone] CC: Michael Colorado MD [id number] [employer] [facility] / [place] [address] Date: 04/20/2016 4:15 PM IAL EDUCATION KINDERGARTEN TEACHER documented in this encounter Consult Notes * Lucie Rm, RD/LD - 04/20/2016 1:37 PM CST Date: 04/20/2016 Diabetes Clinical Nutrition Assessment Lori Landeros is a 16 y.o. 0 m.o. female seen in clinic for new onset diabetes nutrition education Anthropometrics: Weight: 89.1 kg (196 lb 6.9 oz) 98 %ile (Z= 2.03) based on CDC 2-20 Years imdzij-rzg-rdu data usingvitals from 04/20/2016. Height: 169.5 cm (5' 6.73 ) 86 %ile (Z= 1.07) based on CDC 2-20 Years qkujyia-yph-omp data using vitals from 04/20/2016. Body mass [...] Follow up with RD next clinic visit IAL EDUCATION KINDERGARTEN TEACHER documented in this encounter Plan of Treatment Not on file documented as of this encounter Procedures Procedure Name Priority Date/Time Associated Diagnosis Comments LAB RESULTS ORDER 04/27/2016 6:3 2 PM SPECIAL EDUCATION KINDERGARTEN TEACHER IA-2 ANTIBODY Routine 04/20/2016 2:20 PM SPECIAL EDUCATION KINDERGARTEN TEACHER Elevated blood sugar MICROALB/CREAT RATIO URINE RANDOM PANEL Routine 04/20/2016 2:20 PM SPECIAL EDUCATION KINDERGARTEN TEACHER Elevated blood sugar ISLET CELL ANTIBODY Routine 04/20/2016 2 :20 PM SPECIAL EDUCATION KINDERGARTEN TEACHER Elevated blood sugar URINALYSIS REFLEX TO MICROSCOPIC NO CULTURE Routine 04/20/2016 2:20 PM SPECIAL EDUCATION KINDERGARTEN TEACHER Elevated blood sugar URINE MICROSCOPIC ONLY Routine 6 2:20 PM SPECIAL EDUCATION KINDERGARTEN TEACHER Elevated blood sugar C-PEPTIDE Routine 04/20/2016 2:20 PM SPECIAL EDUCATION KINDERGARTEN TEACHER Elevated blood sugar CULTURE URINE Routine 04/20/2016 2:20 PM SPECIAL EDUCATION KINDERGARTEN TEACHER Elevated blood sugar GLUTAMIC ACID DECARBOXYLASE (PERLA) ANTIBODY Routine 04/20/2016 2:20 PM SPECIAL EDUCATION KINDERGARTEN TEACHER Elevated blood sugar BASIC METABOLIC PANEL (CALCIUM TOTAL) Routine 04/20/2016 2:20 PM SPECIAL EDUCATION KINDERGARTEN TEACHER Elevated blood sugar HEMOGLOBIN A1C - POCT (IP) BEAKER Routine 04/20/2016 11:58 AM SPECIAL EDUCATION KINDERGARTEN TEACHER Elevated blood sugar documented in this encounter Results * LAB RESULTS ORDER (04/27/2016 6:32 PM SPECIAL EDUCATION KINDERGARTEN TEACHER) Narrative 04/27/2016 6:32 PM SPECIAL EDUCATION KINDERGARTEN TEACHER Ordered by an unspecified provider. Scanned Document LAB - THERAPEUTIC DR LINO MONITORING ORDERABLES * (ABNORMAL) CULTURE URINE (04/20/2016 2:20 PM SPECIAL EDUCATION KINDERGARTEN TEACHER) Culture 50,000-100,000 CFU/mL Streptococcus agalactiae (Group B)(A) MIGUEL 04/22/2016 8:44 AM SPECIAL EDUCATION KINDERGARTEN TEACHER [facility] Urine URINE SPECIMEN OBTAINED BY CLEAN CATCH PROCEDURE / Unknown 04/20/2016 2:20 PM SPECIAL EDUCATION KINDERGARTEN TEACHER 04/20/2016 5:00 PM SPECIAL EDUCATION KINDERGARTEN TEACHER Narrative [facility] - 04/22/2016 8:44 AM SPECIAL EDUCATION KINDERGARTEN TEACHER Susceptibility testing of penicillin, other beta-lactam antibiotics, and vancomycin is not necessary for beta-hemolytic streptococci groups A,B,C and G because resistant strains have not been recognized. Deon Monteiro MD LAB - MICROBIOLOGY O RDERABLES [facility]CRO[facility] [address] [place] [address], [facility] [phone] * (ABNORMAL) URINALYSIS MICROSCOPIC ONLY (04/20/2016 2:20 PM SPECIAL EDUCATION KINDERGARTEN TEACHER) RBC UA 2-5 0-2, 2-5 # /hpf 04/20/2016 5:28 PM [facility] WBC UA 20-50(A) 0-2, 2-5 # /hpf 04/20/2016 5:28 PM [facility] Bacteria UA 3+(A) None Seen, Trace 04/20/2016 5:28 PM [facility] Epithelial Cell UA 10-20(A) 0-2, 2-5 # /hpf 04/20/2016 5:28 PM [facility] Mucus UA 2+ 04/20/2016 5:28 PM [facility] Urine URINE SPECIMEN OBTAINED BY CLEAN CATCH PROCEDURE / Unknown Collection / Unknown 04/20/2016 2:20 PM SPECIAL EDUCATION KINDERGARTEN TEACHER 04/20/2016 2:37 PM [facility] Deon Monteiro MD LAB - URINALYSIS ORD ERABLES Performing Organization Address City/State/[facility] Co de Phone Number [facility] [address] [place] [address] * (ABNORMAL) URINALYSIS ROUTINE AUTO (04/20/2016 2:20 PM SPECIAL EDUCATION KINDERGARTEN TEACHER) Color UA Yellow Straw, Yellow, Dark Yellow 04/20/2016 3:48 PM [facility] Clarity UA Clear 04/20/2016 3:48 PM [facility] Specific [place] UA >=1.030 1.005 - 1.030 04/20/2016 3:48 PM [facility] pH UA 5.5 5.0 - 8.0 pH 04/20/2016 3:48 PM [facility] Protein UA Negative Negative 04/20/2016 3:48 PM [facility] Blood UA Negative Negative 04/20/2016 3:48 PM [facility] Leukocyte UA 1+(A) Negative 04/20/2016 3:48 PM [facility] Nitrite UA Negative Negative 04/20/2016 3:48 PM [facility] Glucose UA Negative Negative 04/20/2016 3:48 PM [facility] Ketone UA Negative Negative 04/20/2016 3:48 PM [facility] Bilirubin UA Negative Negative 04/20/2016 3:48 PM SPECIAL EDUCATION KINDERGARTEN TEACHER [facility] Urobilinogen UA 0.2 0.1 - 1.0 EU/dL 04/20/2016 3:48 PM [facility] Urine URINE SPECIMEN OBTAINED BY CLEAN CATCH PROCEDURE / Unknown Collection / Unknown 04/20/2016 2:20 PM SPECIAL EDUCATION KINDERGARTEN TEACHER 04/20/2016 2:37 PM SPECIAL EDUCATION KINDERGARTEN TEACHER Deon Monteiro MD LAB - URINALYSIS ORD ERABLES Performing Organization Address [facility] de Phone Number [facility] [address] [place] [address] * (ABNORMAL) MICROALB/CREAT RATIO URINE RANDOM PANEL (04/20/2016 2:20 PM SPECIAL EDUCATION KINDERGARTEN TEACHER) Creatinine Urine 97.83 mg/dL 04/20/20 5:28 PM [facility] Microalbumin Urine 3.5(H) <1.7 mg/dL 04/20/2016 5:28 PM [facility] Microalbumin/Crea tinine Ratio 36(H) <30 mg/g 04/20/2016 5:28 PM [facility] Urine URINE SPECIMEN OBTAINED BY CLEAN CATCH PROCEDURE / Unknown Collection / Unknown 04/20/2016 2:20 PM SPECIAL EDUCATION KINDERGARTEN TEACHER 04/20/2016 2:37 PM SPECIAL EDUCATION KINDERGARTEN TEACHER Deon Monteiro MD LAB - URINE CHEMISTR Y ORDERABLES Performing Organization Address [facility] de Phone Number [facility] [address] [place] [phone] * (ABNORMAL) C-PEPTIDE (04/20/2016 2:20 PM SPECIAL EDUCATION KINDERGARTEN TEACHER) C-Peptide 4.10(H) 0.78 - 1.89 ng/mL 04/20/2016 6:58 PM [facility] Blood BLOOD SPECIMEN / Unknown Lab Venipuncture / Unknown 04/20/2016 2:20 PM SPECIAL EDUCATION KINDERGARTEN TEACHER 04/20/2016 3:22 PM SPECIAL EDUCATION KINDERGARTEN TEACHER Deon Monteiro MD LAB - CHEMISTRY ORDE RABLES [facility] [address] [place] [address] * ISLET CELL ANTIBODY (04/20/2016 2:20 PM SPECIAL EDUCATION KINDERGARTEN TEACHER) Antipancreatic Islet Cells Negative Neg:<1:1 04/21/2016 4:23 PM SPECIAL EDUCATION KINDERGARTEN TEACHER [facility] ([facility]) Blood BLOOD SPECIMEN / Unknown Lab Venipuncture / Unknown 04/20/2016 2:20 PM SPECIAL EDUCATION KINDERGARTEN TEACHER 04/20/2016 3:22 PM SPECIAL EDUCATION KINDERGARTEN TEACHER Narrative [facility] ([facility]) - 04/21/2016 4:23 PM SPECIAL EDUCATION KINDERGARTEN TEACHER Performed at: ??01 - [facility] [address] ??[id number] Explosive Man: Anthony Greco MD, Phone: ??[phone] Deon Monteiro MD LAB - SEROLOGY ORDER ELIOT Performing Organization Address [facility] Co de Phone Number [facility] ([facility]) [address] [place] [address] * IA-2 ANTIBODY (04/20/2016 2:20 PM SPECIAL EDUCATION KINDERGARTEN TEACHER) Insulinoma Associated 2 Antibody <1.0 U/mL 04/24/2016 12:05 AM SPECIAL EDUCATION KINDERGARTEN TEACHER [facility] ([facility]) Comment: Reference Range: <1.0 ?Negative > or = 1.0 ??Positive Blood BLOOD SPECIMEN / Unknown Lab Venipuncture / Unknown 04/20/2016 2:20 PM SPECIAL EDUCATION KINDERGARTEN TEACHER 04/20/2016 3:22 PM SPECIAL EDUCATION KINDERGARTEN TEACHER Narrative [facility] ([facility]) - 04/24/2016 12:05 AM SPECIAL EDUCATION KINDERGARTEN TEACHER Performed at: ??01 - [facility] [address] [place] [address] ??[id number] Explosive Man: Silvestre Shelley MD, Phone: ??[phone] Deon Monteiro MD LAB - SEROLOGY ORDER ELIOT Performing Organization Address City/[facility]/ZIP Co de Phone Number [facility] ([facility]) [address] [place] [address] * PERLA AUTO ANTIBODY (04/20/2016 2:20 PM SPECIAL EDUCATION KINDERGARTEN TEACHER) [facility] PERLA-65 Antibody <5.0 0.0 - 5.0 U/mL 04/22/2016 4:20 PM SPECIAL EDUCATION KINDERGARTEN TEACHER [facility] ([facility]) Blood BLOOD SPECIMEN / Unknown Lab Venipuncture / Unknown 04/20/2016 2:20 PM SPECIAL EDUCATION KINDERGARTEN TEACHER 04/20/2016 3:22 PM SPECIAL EDUCATION KINDERGARTEN TEACHER Narrative [facility] ([facility]) - 04/22/2016 4:20 PM SPECIAL EDUCATION KINDERGARTEN TEACHER Performed at: ??01 - [facility] [address] ??[id number] Explosive Man: Anthony Greco MD, Phone: ??[phone] Deon Monteiro MD LAB - SEROLOGY ORDER ELIOT [facility] ([facility]) [address] [place] [address] * (ABNORMAL) BASIC METABOLIC PANEL (CALCIUM TOTAL) (04/20/2016 2:20 PM SPECIAL EDUCATION KINDERGARTEN TEACHER) [facility] Glucose 150(H) 70 - 105 mg/dL 04/20/2016 4:51 PM [facility] Sodium 138 136 - 145 mmol/L 04/20/2016 4:51 PM [facility] Potassium 4.4 3.5 - 5.1 mmol/L 04/20/2016 4:51 PM [facility] Chloride 105 98 - 107 mmol/L 04/20/2016 4:51 PM [facility] CO2 19(L) 20 - 28 mmol/L 04/20/2016 4:51 PM [facility] Calcium 10.40 9.08 - 10.48 mg/dL 04/20/2016 4:51 PM [facility] Anion Gap 14 5 - 20 mmol/L 04/20/2016 4:51 PM [facility] BUN 19.7(H) 5.3 - 18.7 mg/dL 04/20/2016 4:51 PM [facility] Creatinine 0.53(L) 0.61 - 1.07 mg/dL 04/20/2016 4:51 PM [facility] eGFR by MDRD mL/min/1. 73m2 04/20/2016 4:51 PM [facility] Comment: eGFR calculations are not performed for children under 18 years old. eGFR by MDRD mL/min/1. 73m2 04/20/2016 4:51 PM SPECIAL EDUCATION KINDERGARTEN TEACHER [facility] Comment: eGFR calculations are not performed for children under 18 years old. Blood BLOOD SPECIMEN / Unknown Lab Venipuncture / Unknown 04/20/2016 2:20 PM SPECIAL EDUCATION KINDERGARTEN TEACHER 04/20/2016 3:19 PM SPECIAL EDUCATION KINDERGARTEN TEACHER Deon Monteiro MD LAB - CHEMISTRY NICOLA HARTMAN Performing Organization Address City/[facility]/ZIP Co de Phone Number [facility] [address] [place] [address] * (ABNORMAL) HEMOGLOBIN A1C - POCT (IP) THOMAS (04/20/2016 11:58 AM SPECIAL EDUCATION KINDERGARTEN TEACHER) Hemoglobin A1c POCT 6.7(A) 3.4 - 6.1 % [facility] POCT TESTING QC Verified Yes Yes [facility] PO CT TESTING Blood BLOOD SPECIMEN / Unknown 04/20/2016 11:58 AM SPECIAL EDUCATION KINDERGARTEN TEACHER Deon Monteiro MD LAB - POINT OF CARE ORDERABLES Performing Organization Address [facility] de Phone Number [facility] TEST[facility] [address] [phone] documented in this encounter Visit Diagnoses Diagnosis Elevated blood sugar- Primary Other abnormal glucose Diabetes mellitus, new onset (HCC) Type II or unspecified type diabetes mellitus without mention of complication, not stated as uncontrolled Elevated transaminase level Nonspecific elevation of levels of transaminase or lactic acid dehydrogenase (LDH) Hypercholesterolemia Pure hypercholesterolemia * Assessment & Plan Note - Deon [...] visit). 6. Return appointment in one month. IAL EDUCATION KINDERGARTEN TEACHER * Assessment & Plan Note - Deon Monteiro MD - 04/20/2016 2:12 PM CSTAssociated Problem(s): Hypercholesterolemia ? Familial 1. Fasting lipid profile 2. Decrease dietary fat intake. IAL EDUCATION KINDERGARTEN TEACHER * Assessment & Plan Note - Deon Monteiro MD - 04/20/2016 2:12 PM CSTAssociated Problem(s): Elevated transaminase level ? [place] 1. Repeat serum AST/ALT in one month. 2. Consider referral to Pediatric Gastroenterology IAL EDUCATION KINDERGARTEN TEACHER documented in this encounter Care Teams Channeler Relationship Specialty Start Date End Date Michael Colorado MD [address] [place] [address] PCP - General Pediatrics 04/20/16 documented as of this encounter
--- OUTSIDE RECORDS SUMMARY | 2024-05-25 06:52 | XMS_ITS | Referral Summary ---
Author Organization [facility] Address [address] [place] [address] Care Team Providers Care [employer] Field Supervisor Name Role Phone Michael Colorado MD Primary Care Provider [phone] Source Comments [facility],non-owned Affiliates and Associated Physician Practices is amultiple site organization consisting of ambulatory clinics and hospital sitesin [place], [place], [place] and [place]. This disclosure is being madepursuant to the Care Everywhere program and may not contain all information available regarding this patient. Last updated 18.[facility] Allergies Active Allergy Reactions Criticality Noted Date [...] 36 mg/g (< 30) Jul 19, 2016 ([place], [place]): first morning voided urine microalbumin/creatinine: 23 ug/g (< 30) Assessment & Plan (06/29/2016 12:53 PM WEB MARKETING STRATEGIST): ? Nonspecific vs early diabetic related microalbuminuria 1. Obtain first morning voided urine specimen for microalbumin/creatinine ratio (laboratory requisition given at the time of the office visit). 2. Expectant observation. 3. Return appointment in three months. Controlled type 2 diabetes bisi garcia without complication, without long-term current use of insulin 04/21/2016 Overview (06/29/2016): Apr 15, 2016 - [facility], [address] [place] [id number] Na 143 mmol/L, K 4.4 mmol/L, Cl [...] months. Assessment & Plan (06/29/2016 12:48 PM WEB MARKETING STRATEGIST): Good glycemic control. 1. Metformin 1000 mg bid 2. Home glucose monitoring twice daily. 3. Daily physical exercise (60 minutes daily) to promote weight loss 4. Return appointment in three months. Assessment & Plan (04/21/2016 4:13 PM WEB MARKETING STRATEGIST): New onset, probably type II, diabetes mellitus. [...] mg/dL (< 130) Jul 19, 2016 - [facility] Cholesterol 151 mg/dL (140-199), triglycerides 235 mg/dL (< 150), HDL- cholesterol 37 mg/dL (> 40), LDL-cholesterol 67 (< 130) Assessment & Plan (02/03/2017 2:52 PM CDT): Normal fasting serum cholesterol level in July, 1. Dietary counseling - decrease concentrated sweets/fats Assessment & Plan (06/29/2016 12:45 PM WEB MARKETING STRATEGIST): 1. Dietary counseling provided 2. Fasting lipid profile (laboratory requisition given at the time of the office visit). .3 Return appointment in three months. Assessment & Plan (04/21/2016 4:13 PM WEB MARKETING STRATEGIST): ? Familial 1. Fasting lipid profile 2. [...] BURGOS) Assessment & Plan (06/29/2016 12:46 PM WEB MARKETING STRATEGIST): ? Nonspecific elevation vs evolving BURGOS 1. Repeat serum ALT level (laboratory requisition given at the time of the office visit). 3. Expectant observation. 3. Return appointment in three months. Assessment & Plan (04/21/2016 4:14 PM WEB MARKETING STRATEGIST): ? BURGOS 1. Repeat serum AST/ALT in [...] A1c POCT 6.8(A) 3.4 - 6.1 % [facility] POCT TESTING QC Verified Yes Yes [facility] PO CT TESTING Blood BLOOD SPECIMEN / Unknown 02/02/2017 2:46 PM CDT Deon Monteiro MD LAB - POINT OF CARE ORDERABLES Performing Organization Address [facility] de Phone Number [facility] POCT TESTING [facility] [phone] * (ABNORMAL) MICROALB/CREAT RATIO URINE RANDOM PANEL (02/02/2017 2:38 PM CDT) Creatinine Urine 103.98 mg/dL 02/03/20 17 4:18 PM CDT [facility] Microalbumin Urine 3.3(H) <1.7 mg/dL 02/02/2017 4:18 PM CDT [facility] Microalbumin/Crea tinine Ratio 32(H) <30 mg/g 02/02/2017 4:18 PM T [facility] Urine URINE SPECIMEN OBTAINED BY CLEAN CATCH PROCEDURE / Unknown Collection / Unknown 02/02/2017 2:38 PM CDT 02/02/2017 3:10 PM CDT Deon Monteiro MD LAB - URINE CHEMISTR Y ORDERABLES Performing Organization Address [facility] de Phone Number [facility] [address] [place] [address] * (ABNORMAL) COMPREHENSIVE METABOLIC PANEL (02/02/2017 2:38 PM CDT) Glucose 208(H) 70 - 105 mg/dL 02/02/2017 4:07 PM T [facility] Sodium 136 136 - 145 mmol/L 02/02/2017 4:07 PM T [facility] Potassium 4.0 3.5 - 5.1 mmol/L 02/02/2017 4:07 PM T [facility] Chloride 101 98 - 107 mmol/L 02/02/2017 4:07 PM T [facility] CO2 26 20 - 28 mmol/L 02/02/2017 4:07 PM T [facility] Calcium 9.75 9.08 - 10.48 mg/dL 02/02/2017 4:07 PM T [facility] Anion Gap 9 5 - 20 mmol/L 02/02/2017 4:07 PM T [facility] BUN 14.0 5.3 - 18.7 mg/dL 02/02/2017 4:07 PM [facility] Creatinine 0.50(L) 0.61 - 1.07 mg/dL 02/02/2017 4:07 PM [facility] Alkaline Phosphatase 74(L) 100 - 390 U/L 02/02/2017 4:07 PM [facility] ALT 68(H) 8 - 65 U/L 02/02/2017 4:07 PM [facility] AST 48(H) 3 - 35 U/L 02/02/2017 4:07 PM [facility] Protein Total 8.1 6.3 - 8.2 gm/dL 02/02/2017 4:07 PM [facility] Albumin 4.5 3.3 - 4.9 gm/dL 02/02/2017 4:07 PM [facility] Bilirubin Total 0.3 0.3 - 1.2 mg/dL 02/02/2017 4:07 PM [facility] eGFR by MDRD mL/min/1. 73m2 02/02/2017 4:07 PM [facility] Comment: eGFR calculations are not performed for children under 18 years old. eGFR by MDRD mL/min/1. 73m2 02/02/2017 4:07 PM [facility] Comment: eGFR calculations are not performed for children under 18 years old. Blood BLOOD SPECIMEN / Unknown Venipuncture / Unknown 02/02/2017 2:38 PM CDT 02/02/2017 3:15 PM CDT Deon Monteiro MD LAB - CHEMISTRY [facility] Organization Address City/State/[facility] Co de Phone Number [facility] [address] [place] [address] from Last 3 Months or Most Recently Relevant to Health Maintenance Care Teams [employer] Field Supervisor Relationship Specialty Start Date End Date Michael Colorado MD [address] [facility] [address] [place] [address] PCP - General Pediatrics 04/20/16
--- OUTSIDE RECORDS SUMMARY | 2024-05-25 06:52 | XMS_ITS | Encounter Summary ---
Author Organization [facility] Address [facility] [place], [place] [address] [place] [id number] Care Team Providers Care Office System Analyst Name Role Phone Gerber Betts DO Primary [...] on filedocumented in this encounter Care Teams Office System Analyst Relationship Specialty Start Date End Date Gerber Betts DO [address] [place] [id number] PCP - General FAMILY PRACTICE 06/13/23 documented as of this encounter
--- OUTSIDE RECORDS SUMMARY | 2024-05-25 06:52 | XMS_ITS | Encounter Summary ---
Author Organization [facility] Address [address] [facility] [facility] [place] [address] Care Team Providers Care Product Lister Name Role Phone Michael Colorado MD Primary Care Provider Reason for Visit * Reason Onset Date Comments MEDICATION REFILL 04/20/2016 Encounter Details Date Type Department Care Team (Late st Contact Info) Description 04/20/2016 Refill [facility] Pediatrics - Diabetes [address] [address] Deon Monteiro MD [address] [place] [id number] MEDICATION REFILL Social History Tobacco Use Types Packs/Day Years Used Date Smoking Tobacco: Never Sex and Gender Information Value Date Recorded Sex Assigned at Not on file Gender Identity Not on file Sexual Orientation Not on file documented as of this encounter Plan of Treatment Not on file documented as of this encounter Visit Diagnoses Not on filedocumented in this encounter Care Teams Product Lister Relationship Specialty Start Date End Date Michael Colorado MD [address] [place] [address] PCP - General Pediatrics 04/20/16 documented as of this encounter
--- OUTSIDE RECORDS SUMMARY | 2024-05-25 06:52 | XMS_ITS | Encounter Summary ---
Author Organization [facility] Address [address] [place] [address] Care Team Providers Care Tailor Helper Name Role Phone Michael Colorado MD Primary Care Provider [phone] Reason for Visit * Reason Onset Date Comments Results 05/20/2016 Please give mom a call regarding lab results. Encounter Details Date Type Department Care Team (Late st Contact Info) Description 05/20/2016 Telephone [facility] - Endocrinology [address] [place] [address]. [place] [address] Deon Monteiro MD [address] [place] [phone] Results (Please give mom a call [...] unsuccessful); reschedule missed appt. Deon Monteiro MD RAFT DELIVERY CHECKER documented in this encounter Plan of Treatment Not on file documented as of this encounter Visit Diagnoses Not on filedocumented in this encounter Care Teams Tailor Helper Relationship Specialty Start Date End Date Michael Colorado MD [address] [facility] [address] [place] [address] PCP - General Pediatrics 04/20/16 documented as of this encounter
--- OUTSIDE RECORDS SUMMARY | 2024-05-25 06:52 | XMS_ITS | Encounter Summary ---
Author Organization [facility] Address [address] [place] [address] Care Team Providers Care Brick Picker Name Role Phone Michael Colorado MD Primary Care Provider Reason for Visit * Reason Onset Date Comments Parent Return Call 04/25/2016 Mom returned your call from last week. Encounter Details Date Type Department Care Team (Late st Contact Info) Description 04/25/2016 Telephone [facility] Pediatrics - Endocrinology [address] [place] [address]. [place] [address] Deon Monteiro MD [address] [place] [phone] Parent Return Call (Mom returned your call [...] on filedocumented in this encounter Care Teams Brick Picker Relationship Specialty Start Date End Date Michael Colorado MD [address] [place] [address] PCP - General Pediatrics 04/20/16 documented as of this encounter
--- OUTSIDE RECORDS SUMMARY | 2024-05-25 06:52 | XMS_ITS | Patient Health Summary ---
Author Organization [facility] Address [address] [place] [address] Care Team Providers Care Prepared Foods Associate Name Role Phone Michael [place] MD Primary Care Provider Note from [facility],non-owned Affiliates and Associated Physician Practices is amultiple site organization consisting of ambulatory clinics and hospital sitesin [place], [place], [place] and [place]. This disclosure is being madepursuant to the Care Everywhere program and may not contain all information available regarding this patient. Last updated 18.[facility] Allergies * Morphine Medications * Be aware [...] complication, without long-term current use of insulin ([facility]) * MICROALB/CREAT RATIO URINE RANDOM PANEL(Performed 02/02/2017) Performed for Controlled type 2 diabetes mellitus without complication, without long-term current use of insulin ([facility]) * LIPID PROFILE(Performed 02/02/2017) Performed for Controlled type 2 diabetes mellitus without complication, without long-term current use of insulin ([facility]) * COMPREHENSIVE METABOLIC PANEL(Performed 02/02/2017) Performed for Controlled type 2 diabetes mellitus without complication, without long-term current use of insulin ([facility]) * LAB RESULTS ORDER(Performed 08/08/2016) * HEMOGLOBIN [...] A1c POCT 6.8(A) 3.4 - 6.1 % [facility] POCT TESTING QC Verified Yes Yes [facility] PO CT TESTING Blood BLOOD SPECIMEN / Unknown 02/02/2017 2:46 PM CDT Deon Monteiro MD LAB - POINT OF CARE ORDERABLES [facility] POCT TESTING [address] [phone] * (ABNORMAL) MICROALB/CREAT RATIO URINE RANDOM PANEL (02/02/2017 2:38 PM CDT) Only the most recent of2 resultswithin the time period is included. Creatinine Urine 103.98 mg/dL 02/03/20 17 4:18 PM CDT [facility] Microalbumin Urine 3.3(H) <1.7 mg/dL 02/02/2017 4:18 PM [facility] Microalbumin/Crea tinine Ratio 32(H) <30 mg/g 02/02/2017 4:18 PM [facility] Urine URINE SPECIMEN OBTAINED BY CLEAN CATCH PROCEDURE / Unknown Collection / Unknown 02/02/2017 2:38 PM CDT 02/02/2017 3:10 PM CDT Deon Monteiro MD LAB - URINE CHEMISTR Y ORDERABLES [facility] [address] [place] [address] * (ABNORMAL) COMPREHENSIVE METABOLIC PANEL (02/02/2017 2:38 PM CDT) Glucose 208(H) 70 - 105 mg/dL 02/02/2017 4:07 PM [facility] Sodium 136 136 - 145 mmol/L 02/02/2017 4:07 PM [facility] Potassium 4.0 3.5 - 5.1 mmol/L 02/02/2017 4:07 PM [facility] Chloride 101 98 - 107 mmol/L 02/02/2017 4:07 PM [facility] CO2 26 20 - 28 mmol/L 02/02/2017 4:07 PM [facility] Calcium 9.75 9.08 - 10.48 mg/dL 02/02/2017 4:07 PM [facility] Anion Gap 9 5 - 20 mmol/L 02/02/2017 4:07 PM [facility] BUN 14.0 5.3 - 18.7 mg/dL 02/02/2017 4:07 PM [facility] Creatinine 0.50(L) 0.61 - 1.07 mg/dL 02/02/2017 4:07 PM [facility] Alkaline Phosphatase 74(L) 100 - 390 U/L 02/02/2017 4:07 PM [facility] ALT 68(H) 8 - 65 U/L 02/02/2017 4:07 PM [facility] AST 48(H) 3 - 35 U/L 02/02/2017 4:07 PM [facility] Protein Total 8.1 6.3 - 8.2 gm/dL 02/02/2017 4:07 PM T [facility] Albumin 4.5 3.3 - 4.9 gm/dL 02/02/2017 4:07 PM T [facility] Bilirubin Total 0.3 0.3 - 1.2 mg/dL 02/02/2017 4:07 PM [facility] eGFR by MDRD mL/min/1. 73m2 02/02/2017 4:07 PM [facility] Comment: eGFR calculations are not performed for children under 18 years old. eGFR by MDRD mL/min/1. 73m2 02/02/2017 4:07 PM [facility] Comment: eGFR calculations are not performed for children under 18 years old. Blood BLOOD SPECIMEN / Unknown Venipuncture / Unknown 02/02/2017 2:38 PM CDT 02/02/2017 3:15 PM CDT Deon Monteiro MD LAB - CHEMISTRY NICOLA HARTMAN [facility] Organization Address City/State/[facility] Phone Number [facility] [address] [place] [address] * (ABNORMAL) LIPID PROFILE (02/02/2017 2:38 PM CDT) Cholesterol 226(H) <170 mg/dL 02/02/2017 4:08 PM [facility] Triglycerides 624(H) 46 - 227 mg/dL 02/02/2017 4:08 PM [facility] HDL Cholesterol 35(L) >40 mg/dL 7 4:08 PM [facility] LDL Calculated 66 <100 mg/dL 02/02/2017 4:08 PM [facility] Comment: Unable to calculate LDL due to elevated Triglycerides, please consider ordering a Direct LDL. VLDL Calculated 125(H) 12 - 38 mg/dL 02/02/2017 4:08 PM [facility] Comment: Unable to calculate LDL due to elevated Triglycerides, please consider ordering a Direct LDL. Chol HDL Ratio 6.5(H) <=5.0 02/02/2017 4:08 PM [facility] Blood BLOOD SPECIMEN / Unknown Venipuncture / Unknown 02/02/2017 2:38 PM CDT 02/02/2017 3:15 PM CDT Narrative [facility] - 02/02/2017 4:08 PM CDT Lipid Profile Comment: Adult references ranges are the recommendation of the [employer] , for those patients >18 [...] Monteiro MD LAB - CHEMISTRY NICOLA HARTMAN [facility] Organization Address City/State/[facility] Co de Phone Number [facility] [place] [place]. [place], [place] [id number] * LAB RESULTS ORDER (08/08/2016 10:54 PM OFFICE MANAGER RECEPTIONIST) Only the most recent of2 resultswithin the time period is included. Narrative 08/08/2016 10:54 PM OFFICE MANAGER RECEPTIONIST Ordered by an unspecified provider. Scanned Document LAB - THERAPEUTIC DR LINO MONITORING ORDERABLES * IA-2 ANTIBODY (04/20/2016 2:20 PM OFFICE MANAGER RECEPTIONIST) [facility] Insulinoma Associated 2 Antibody <1.0 U/mL 04/24/2016 12:05 AM OFFICE MANAGER RECEPTIONIST [facility]) Comment: Reference Range: <1.0 ?Negative > or = 1.0 ??Positive Blood BLOOD SPECIMEN / Unknown Lab Venipuncture / Unknown 04/20/2016 2:20 PM OFFICE MANAGER RECEPTIONIST 04/20/2016 3:22 PM OFFICE MANAGER RECEPTIONIST Narrative [facility] ([facility]) - 04/24/2016 12:05 AM OFFICE MANAGER RECEPTIONIST Performed at: ??01 - [facility] [address] [place] [address] ??[phone] Telecom Assistant: Silvestre Shelley MD, Phone: ??[phone] Deon Monteiro MD LAB - SEROLOGY ORDER ELIOT Performing Organization Address City/[facility]/ZIP Co de Phone Number [facility] ([facility]) [address] [place] [address] * ISLET CELL ANTIBODY (04/20/2016 2:20 PM OFFICE MANAGER RECEPTIONIST) Antipancreatic Islet Cells Negative Neg:<1:1 04/21/2016 4:23 PM OFFICE MANAGER RECEPTIONIST [facility] ([facility]) Blood BLOOD SPECIMEN / Unknown Lab Venipuncture / Unknown 04/20/2016 2:20 PM OFFICE MANAGER RECEPTIONIST 04/20/2016 3:22 PM OFFICE MANAGER RECEPTIONIST Narrative [facility] ([facility]) - 04/21/2016 4:23 PM OFFICE MANAGER RECEPTIONIST Performed at: ??01 - [facility] [address] ??[phone] Telecom Assistant: Anthony Greco MD, Phone: ??[phone] Deon Monteiro MD LAB - SEROLOGY ORDER ELIOT Performing Organization Address City/[facility]/ZIP Co de Phone Number [facility]) [address] [place] [address] * (ABNORMAL) URINALYSIS ROUTINE AUTO (04/20/2016 2:20 PM OFFICE MANAGER RECEPTIONIST) Color UA Yellow Straw, Yellow, Dark Yellow 04/20/2016 3:48 PM [facility] Clarity UA Clear 04/20/2016 3:48 PM [facility] Specific [place] UA >=1.030 1.005 - 1.030 04/20/2016 3:48 PM [facility] pH UA 5.5 5.0 - 8.0 pH 04/20/2016 3:48 PM [facility] Protein UA Negative Negative 04/20/2016 3:48 PM [facility] Blood UA Negative Negative 04/20/2016 3:48 PM [facility] Leukocyte UA 1+(A) Negative 04/20/2016 3:48 PM [facility] Nitrite UA Negative Negative 04/20/2016 3:48 PM [facility] Glucose UA Negative Negative 04/20/2016 3:48 PM [facility] Ketone UA Negative Negative 04/20/2016 3:48 PM [facility] Bilirubin UA Negative Negative 04/20/2016 3:48 PM [facility] Urobilinogen UA 0.2 0.1 - 1.0 EU/dL 04/20/2016 3:48 PM [facility] Urine URINE SPECIMEN OBTAINED BY CLEAN CATCH PROCEDURE / Unknown Collection / Unknown 04/20/2016 2:20 PM OFFICE MANAGER RECEPTIONIST 04/20/2016 2:37 PM OFFICE MANAGER RECEPTIONIST Deon Monteiro MD LAB - URINALYSIS ORD ERABLES Performing Organization Address [facility] Co de Phone Number [facility] [address] [place] [address] * (ABNORMAL) URINALYSIS MICROSCOPIC ONLY (04/20/2016 2:20 PM OFFICE MANAGER RECEPTIONIST) RBC UA 2-5 0-2, 2-5 # /hpf 04/20/2016 5:28 PM [facility] WBC UA 20-50(A) 0-2, 2-5 # /hpf 04/20/2016 5:28 PM [facility] Bacteria UA 3+(A) None Seen, Trace 04/20/2016 5:28 PM [facility] Epithelial Cell UA 10-20(A) 0-2, 2-5 # /hpf 04/20/2016 5:28 PM [facility] Mucus UA 2+ 04/20/2016 5:28 PM [facility] Urine URINE SPECIMEN OBTAINED BY CLEAN CATCH PROCEDURE / Unknown Collection / Unknown 04/20/2016 2:20 PM OFFICE MANAGER RECEPTIONIST 04/20/2016 2:37 PM OFFICE MANAGER RECEPTIONIST Deon Monteiro MD LAB - URINALYSIS ORD ERABLES Performing Organization Address [facility]/ZIP Co de Phone Number [facility] [address] [place] [address] * (ABNORMAL) C-PEPTIDE (04/20/2016 2:20 PM OFFICE MANAGER RECEPTIONIST) C-Peptide 4.10(H) 0.78 - 1.89 ng/mL 04/20/2016 6:58 PM OFFICE MANAGER RECEPTIONIST [facility] Blood BLOOD SPECIMEN / Unknown Lab Venipuncture / Unknown 04/20/2016 2:20 PM OFFICE MANAGER RECEPTIONIST 04/20/2016 3:22 PM OFFICE MANAGER RECEPTIONIST Deon Monteiro MD LAB - CHEMISTRY NICOLA HARTMAN Performing Organization Address City/[facility]/ZIP Co de Phone Number [facility] [address] [place] [address] * (ABNORMAL) CULTURE URINE (04/20/2016 2:20 PM OFFICE MANAGER RECEPTIONIST) Pathologist [facility] Culture 50,000-100,000 CFU/mL Streptococcus agalactiae (Group B)(A) MIGUEL 04/22/2016 8:44 AM OFFICE MANAGER RECEPTIONIST [facility] Urine URINE SPECIMEN OBTAINED BY CLEAN CATCH PROCEDURE / Unknown 04/20/2016 2:20 PM OFFICE MANAGER RECEPTIONIST 04/20/2016 5:00 PM OFFICE MANAGER RECEPTIONIST Narrative [facility] - 04/22/2016 8:44 AM OFFICE MANAGER RECEPTIONIST Susceptibility testing of penicillin, other beta-lactam antibiotics, and vancomycin is not necessary for beta-hemolytic streptococci groups A,B,C and G because resistant strains have not been recognized. Deon Monteiro MD LAB - MICROBIOLOGY O RDERABLES [facility] [address] [phone] * PERLA AUTO ANTIBODY (04/20/2016 2:20 PM OFFICE MANAGER RECEPTIONIST) PERLA-65 Antibody <5.0 0.0 - 5.0 U/mL 04/22/2016 4:20 PM OFFICE MANAGER RECEPTIONIST [facility] ([facility]) Blood BLOOD SPECIMEN / Unknown Lab Venipuncture / Unknown 04/20/2016 2:20 PM OFFICE MANAGER RECEPTIONIST 04/20/2016 3:22 PM OFFICE MANAGER RECEPTIONIST Narrative [facility] ([facility]) - 04/22/2016 4:20 PM OFFICE MANAGER RECEPTIONIST Performed at: ??01 - [facility] [address] ??[id number] Telecom Assistant: Anthony Greco MD, Phone: ??[phone] Deon Monteiro MD LAB - SEROLOGY ORDER ELIOT [facility] ([facility]) [address] [place] [address] * (ABNORMAL) BASIC METABOLIC PANEL (CALCIUM TOTAL) (04/20/2016 2:20 PM OFFICE MANAGER RECEPTIONIST) Glucose 150(H) 70 - 105 mg/dL 04/20/2016 4:51 PM [facility] Sodium 138 136 - 145 mmol/L 04/20/2016 4:51 PM [facility] Potassium 4.4 3.5 - 5.1 mmol/L 04/20/2016 4:51 PM [facility] Chloride 105 98 - 107 mmol/L 04/20/2016 4:51 PM [facility] CO2 19(L) 20 - 28 mmol/L 04/20/2016 4:51 PM [facility] Calcium 10.40 9.08 - 10.48 mg/dL 04/20/2016 4:51 PM [facility] Anion Gap 14 5 - 20 mmol/L 04/20/2016 4:51 PM [facility] BUN 19.7(H) 5.3 - 18.7 mg/dL 04/20/2016 4:51 PM [facility] Creatinine 0.53(L) 0.61 - 1.07 mg/dL 04/20/2016 4:51 PM [facility] eGFR by MDRD mL/min/1. 73m2 04/20/2016 4:51 PM [facility] Comment: eGFR calculations are not performed for children under 18 years old. eGFR by MDRD mL/min/1. 73m2 04/20/2016 4:51 PM [facility] Comment: eGFR calculations are not performed for children under 18 years old. Blood BLOOD SPECIMEN / Unknown Lab Venipuncture / Unknown 04/20/2016 2:20 PM OFFICE MANAGER RECEPTIONIST 04/20/2016 3:19 PM OFFICE MANAGER RECEPTIONIST Deon Monteiro MD LAB - CHEMISTRY NICOLA Cortes Organization Address City/State/ZIP Co de Phone Number [facility] [address] [place] [address] Care Teams Prepared Foods Associate Relationship Specialty Start Date End Date Michael [place] MD [address] [place] [address] PCP - General Pediatrics 04/20/16
--- OUTSIDE RECORDS SUMMARY | 2024-05-25 06:52 | XMS_ITS | Encounter Summary ---
Author Organization [facility] Address [address] [place] [address] Care Team Providers Care Authorization Specialist Name Role Phone Michael [place] MD Primary Care Provider Reason for Visit * Reason Onset Date Comments Results 04/27/2016 Please call mom with results Encounter Details Date Type Department Care Team (Late st Contact Info) Description 04/27/2016 Telephone [facility] Pediatrics - Endocrinology [address] [place] [address] Deon Monteiro MD [address] [place] [address] Results (Please call mom with results) Social [...] on filedocumented in this encounter Care Teams Authorization Specialist Relationship Specialty Start Date End Date Michael [place] MD [address] [facility] [address] [place] [address] PCP - General Pediatrics 04/20/16 documented as of this encounter
--- OUTSIDE RECORDS SUMMARY | 2024-05-25 06:52 | XMS_ITS | Encounter Summary ---
Author Organization [facility] Address [address] [place] [address]. [place], [place] [address] [place] [address] Care Team Providers Care Lumber Marker Name Role Phone Gerber Betts DO Primary Care Provider + Reason for Visit * Reason Comments Dilated Eye Exam (SCAN) Encounter Details Date Type Department Care Team ([facility] Contact Info) Description 08/28/2023 Scan HEALTH INFO [...] on filedocumented in this encounter Care Teams Lumber Marker Relationship Specialty Start Date End Date Gerber Betts DO [facility] [place] [address] PCP - General FAMILY PRACTICE 06/13/23 documented as of this encounter
--- OUTSIDE RECORDS SUMMARY | 2024-05-25 06:52 | XMS_ITS | Encounter Summary ---
Author Organization [facility] Address [address] [facility] [place] [address] Care Team Providers Care Mold Making Plastics Sheets Supervisor Name Role Phone Michael [place] MD Primary Care Provider [phone] Reason for Visit * Reason Onset Date Comments General 12/21/2016 Encounter Details Date Type Department Care Team (Late st Contact Info) Description 12/21/2016 Telephone [facility] Pediatrics - Diabetes Mgmt [address] [place] [address] Deon Monteiro MD [address] [place] [phone] General Social History Tobacco Use Types Packs/Day [...] on filedocumented in this encounter Care Teams Mold Making Plastics Sheets Supervisor Relationship Specialty Start Date End Date Michael [place] MD [address] [place] [id number] PCP - General Pediatrics 04/20/16 documented as of this encounter
--- OUTSIDE RECORDS SUMMARY | 2024-05-25 06:52 | XMS_ITS | Encounter Summary ---
Author Organization [facility] Address [address] [place] [address] Care Team Providers Care Rod Placer Name Role Phone Michael [place] MD Primary Care Provider [phone] Encounter Details Date Type Department Care Team (Late st Contact Info) Description 06/08/2017 Orders Only [facility] Pediatrics - Endocrinology [address] [place] [address] Deon Monteiro MD [address] [place] [address] Controlled type 2 diabetes mellitus without complication, [...] Primary documented in this encounter Care Teams Rod Placer Relationship Specialty Start Date End Date Michael [place] MD [address] [place] [address] PCP - General Pediatrics 04/20/16 documented as of this encounter
--- OUTSIDE RECORDS SUMMARY | 2024-05-25 06:52 | XMS_ITS | Encounter Summary ---
Author Organization [facility] Address [address] [facility] [place] [address] Care Team Providers Care Property Portfolio Officer Name Role Phone Michael [place] MD Primary Care Provider [phone] Reason for Visit * Reason Onset Date Comments MEDICATION REFILL 12/21/2016 Encounter Details Date Type Department Care Team (Late st Contact Info) Description 12/21/[address] [facility] Pediatrics - Diabetes Mgmt [address] [place] [address] Kirt Garvey MD [address] [place] [phone] MEDICATION REFILL Social History Tobacco Use Types Packs/Day Years Used Date Smoking Tobacco: Never Sex and Gender Information Value Date Recorded Sex Assigned at Not on file Gender Identity Not on file Sexual Orientation Not on file documented as of this encounter Plan of Treatment Not on file documented as of this encounter Visit Diagnoses Not on filedocumented in this encounter Care Teams Property Portfolio Officer Relationship Specialty Start Date End Date Michael [place] MD [address] [place] [address] PCP - General Pediatrics 04/20/16 documented as of this encounter
--- OUTSIDE RECORDS SUMMARY | 2024-05-25 06:52 | XMS_ITS | Encounter Summary ---
Author Organization [facility] Address [address] [facility] [place] [address] Care Team Providers Care Casino Cage Supervisor Name Role Phone Michael [place] MD Primary Care Provider [phone] Reason for Visit * Reason Onset Date Comments MEDICATION REFILL 05/20/2016 Encounter Details Date Type Department Care Team (Late st Contact Info) Description 05/20/2016 Refill [facility] Pediatrics - Diabetes [address] [address] Deon Monteiro MD [address] [place] [phone] MEDICATION REFILL Social History Tobacco Use Types Packs/Day Years Used Date Smoking Tobacco: Never Sex and Gender Information Value Date Recorded Sex Assigned at Not on file Gender Identity Not on file Sexual Orientation Not on file documented as of this encounter Miscellaneous Notes * Telephone Encounter - Janice Bower RN - 05/20/2016 12:00 PM BARBER SHOP OPERATOR Family called requesting test strips refill. Called pharmacy and they have refills available. Left voicemail for mother that refills are available to call pharmacy and have them filled when needed. ER SHOP OPERATOR documented in this encounter Plan of Treatment Not on file documented as of this encounter Visit Diagnoses Not on filedocumented in this encounter Care Teams Casino Cage Supervisor Relationship Specialty Start Date End Date Michael [place] MD [address] [place] [address] PCP - General Pediatrics 04/20/16 documented as of this encounter
--- OUTSIDE RECORDS SUMMARY | 2024-05-25 06:52 | XMS_ITS | Encounter Summary ---
Author Organization [facility] Address [address] [facility] [place] [address] Care Team Providers Care Wax Cutter Name Role Phone Michael [place] MD Primary Care Provider Reason for Visit * Reason Onset Date Comments MEDICATION REFILL 04/20/2016 Encounter Details Date Type Department Care Team (Late st Contact Info) Description 04/20/2016 Refill [facility] Pediatrics - Diabetes [address] [address] Deon Monteiro MD [address] [place] [phone] MEDICATION REFILL Social History Tobacco Use Types Packs/Day Years Used Date Smoking Tobacco: Never Sex and Gender Information Value Date Recorded Sex Assigned at Not on file Gender Identity Not on file Sexual Orientation Not on file documented as of this encounter Plan of Treatment Not on file documented as of this encounter Visit Diagnoses Not on filedocumented in this encounter Care Teams Wax Cutter Relationship Specialty Start Date End Date Michael [place] MD [address] [place] [address] PCP - General Pediatrics 04/20/16 documented as of this encounter
--- OUTSIDE RECORDS SUMMARY | 2024-05-25 06:52 | XMS_ITS | Clinical Summary ---
Author Organization [facility] Address [address] 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,non-owned Affiliates and Associated Physician Practices is amultiple site organization consisting of ambulatory clinics and hospital sitesin [place], [place], [place] and [place]. This disclosure is being madepursuant to the Care Everywhere program and may not contain all information available regarding this patient. Last updated 18.[facility] Allergies Active Allergy Reactions Criticality Noted Date [...] 36 mg/g (< 30) Jul 19, 2016 ([place], [place]): first morning voided urine microalbumin/creatinine: 23 ug/g (< 30) Assessment & Plan (06/29/2016 12:53 PM CLINICAL REVIEW SPECIALIST): ? Nonspecific vs early diabetic related microalbuminuria 1. Obtain first morning voided urine specimen for microalbumin/creatinine ratio (laboratory requisition given at the time of the office visit). 2. Expectant observation. 3. Return appointment in three months. Controlled type 2 diabetes bisi garcia without complication, without long-term current use of insulin 04/21/2016 Overview (06/29/2016): Apr 15, 2016 - [facility], [address] [place] [id number] Na 143 mmol/L, K 4.4 mmol/L, Cl [...] months. Assessment & Plan (06/29/2016 12:48 PM CLINICAL REVIEW SPECIALIST): Good glycemic control. 1. Metformin 1000 mg bid 2. Home glucose monitoring twice daily. 3. Daily physical exercise (60 minutes daily) to promote weight loss 4. Return appointment in three months. Assessment & Plan (04/21/2016 4:13 PM CLINICAL REVIEW SPECIALIST): New onset, probably type II, diabetes mellitus. [...] mg/dL (< 130) Jul 19, 2016 - [facility] Cholesterol 151 mg/dL (140-199), triglycerides 235 mg/dL (< 150), HDL- cholesterol 37 mg/dL (> 40), LDL-cholesterol 67 (< 130) Assessment & Plan (02/03/2017 2:52 PM CDT): Normal fasting serum cholesterol level in July, 1. Dietary counseling - decrease concentrated sweets/fats Assessment & Plan (06/29/2016 12:45 PM CLINICAL REVIEW SPECIALIST): 1. Dietary counseling provided 2. Fasting lipid profile (laboratory requisition given at the time of the office visit). .3 Return appointment in three months. Assessment & Plan (04/21/2016 4:13 PM CLINICAL REVIEW SPECIALIST): ? Familial 1. Fasting lipid profile 2. [...] BURGOS) Assessment & Plan (06/29/2016 12:46 PM CLINICAL REVIEW SPECIALIST): ? Nonspecific elevation vs evolving BURGOS 1. Repeat serum ALT level (laboratory requisition given at the time of the office visit). 3. Expectant observation. 3. Return appointment in three months. Assessment & Plan (04/21/2016 4:14 PM CLINICAL REVIEW SPECIALIST): ? BURGOS 1. Repeat serum AST/ALT in [...] A1c POCT 6.8(A) 3.4 - 6.1 % [facility] PO[facility] QC Verified Yes Yes [facility] PO CT TESTING Blood BLOOD SPECIMEN / Unknown 02/02/2017 2:46 PM CDT Deon Monteiro MD LAB - POINT OF CARE ORDERABLES Performing Organization Address City/State/[facility] Co de Phone Number [facility] [phone] * (ABNORMAL) MICROALB/CREAT RATIO URINE RANDOM PANEL (02/02/2017 2:38 PM CDT) Creatinine Urine 103.98 mg/dL 02/03/20 17 4:18 PM CDT [facility] Microalbumin Urine 3.3(H) <1.7 mg/dL 02/02/2017 4:18 PM CDT [facility] Microalbumin/Crea tinine Ratio 32(H) <30 mg/g 02/02/2017 4:18 PM CDT [facility] Urine URINE SPECIMEN OBTAINED BY CLEAN CATCH PROCEDURE / Unknown Collection / Unknown 02/02/2017 2:38 PM CDT 02/02/2017 3:10 PM CDT Deon Monteiro MD LAB - URINE CHEMISTR Y ORDERABLES [facility] [address] [place] [address] * (ABNORMAL) COMPREHENSIVE METABOLIC PANEL (02/02/2017 2:38 PM CDT) Glucose 208(H) 70 - 105 mg/dL 02/02/2017 4:07 PM T [facility] Sodium 136 136 - 145 mmol/L 02/02/2017 4:07 PM T [facility] Potassium 4.0 3.5 - 5.1 mmol/L 02/02/2017 4:07 PM [facility] Chloride 101 98 - 107 mmol/L 02/02/2017 4:07 PM [facility] CO2 26 20 - 28 mmol/L 02/02/2017 4:07 PM [facility] Calcium 9.75 9.08 - 10.48 mg/dL 02/02/2017 4:07 PM [facility] Anion Gap 9 5 - 20 mmol/L 02/02/2017 4:07 PM [facility] BUN 14.0 5.3 - 18.7 mg/dL 02/02/2017 4:07 PM [facility] Creatinine 0.50(L) 0.61 - 1.07 mg/dL 02/02/2017 4:07 PM [facility] Alkaline Phosphatase 74(L) 100 - 390 U/L 02/02/2017 4:07 PM [facility] ALT 68(H) 8 - 65 U/L 02/02/2017 4:07 PM [facility] AST 48(H) 3 - 35 U/L 02/02/2017 4:07 PM [facility] Protein Total 8.1 6.3 - 8.2 gm/dL 02/02/2017 4:07 PM [facility] Albumin 4.5 3.3 - 4.9 gm/dL 02/02/2017 4:07 PM [facility] Bilirubin Total 0.3 0.3 - 1.2 mg/dL 02/02/2017 4:07 PM CDT [facility] eGFR by MDRD mL/min/1. 73m2 02/02/2017 4:07 PM CDT [facility] Comment: eGFR calculations are not performed for children under 18 years old. eGFR by MDRD mL/min/1. 73m2 02/02/2017 4:07 PM CDT [facility] Comment: eGFR calculations are not performed for children under 18 years old. 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
== END 2024-05-20 01:14 | disposition home or self-care (01) ==
PROVIDERS: Emergency Provider Registered Nurse
DX: O99.281 Endocrine, nutritional and metabolic diseases complicating pregnancy, first trimester (principal); E86.0 Dehydration; O24.111 Pre-existing type 2 diabetes mellitus, in pregnancy, first trimester; E11.42 Type 2 diabetes mellitus with diabetic polyneuropathy; O99.341 Other mental disorders complicating pregnancy, first trimester; F31.9 Bipolar disorder, unspecified; F90.9 Attention-deficit hyperactivity disorder, unspecified type; Z3A.01 Less than 8 weeks gestation of pregnancy; Z79.4 Long term (current) use of insulin; Z79.899 Other long term (current) drug therapy
CPT/HCPCS: 36415; 80053; 81003; 81025; 84702; 85025; 96360; 99283

== ENCOUNTER 2024-07-22 19:44 | Emergency (ER) | payer OTHER, SELFPAY ==
--- OUTSIDE RECORDS SUMMARY | 2024-07-22 19:47 | XMS_ITS | Clinical Summary ---
Author Organization [facility] Address [address] [place] [address] Care Team Providers Care Appliance Painter And Refinisher Name Role Phone Gerber Betts Kg LOGAN Primary Care Provider + Source Comments [facility],non-owned Affiliates and Associated Physician Practices is amultiple site organization consisting of ambulatory clinics and hospital sitesin [place], [place], [place] and [place]. This disclosure is being madepursuant to the Care Everywhere program and may not contain all information available regarding this patient. Last updated 18.[facility] Allergies Active Allergy Reactions Criticality Noted Date Comments Codeine Urticaria Medium 04/20/2016 Morphine Urticaria Medium 04/20/2016 Medications * Be aware that medications may not be up to date on this document. Alwaysverify current medications with the patient. Medication Sig Dispensed Refills Start Date End Date Status albuterol HFA (PROVENTIL;JUAN COLLEEN;PROAIR) 108 (90 BASE) MCG/ACT inhaler Inhale 2 (two) puffs by mouth every 6 hours as needed Active Blood Glucose Monitoring Suppl (TRUETRACK BLOOD GLUCOSE) W/DEVICE KIT Use as directed 1 Kit 1 04/20/2016 Active metFORMIN (GLUCOPHAGE) 500 MG tabletIndication s:Controlled type 2 diabetes mellitus without complication, without long-term current use of insulin (HCC) Take two 500 mg tablets in the am and pm with food. 120 Tab 5 02/02/2017 Active acetone,urine, (KETOSTIX) stripIndications :Controlled type 2 diabetes mellitus without complication, without long-term current use of insulin (HCC) Use if blood sugar greater than 250 or in times of illness. 100 Strip 5 02/02/2017 Active Additional Information Patient not taking.Reported on 07/16/2024 MICROLET LANCETS MISCIndications: Controlled type 2 diabetes mellitus without complication, without long-term current use of insulin (HCC) Use 1 Each as directed Use to test blood sugar 2 -3 times daily. 100 Each 11 02/02/2017 Active blood glucose (TRUETRACK TEST) test stripIndications :Controlled type 2 diabetes mellitus without complication, without long-term current use of insulin (HCC) Use to test blood sugar 2-3 times daily. 100 Strip 5 02/02/2017 Active amphetamine-dext roamphetamine XR 24hr (Adderall XR) 20 MG capsule Take 1 (one) capsule by mouth every morning 05/10/2023 Active metFORMIN ER 24hr (Glucophage XR) 500 MG tablet Take 1 (one) tablet by mouth daily with dinner 06/13/2023 Active metFORMIN ER 24hr (Glucophage XR) 500 MG tabletIndication s:Diabetes mellitus affecting in first trimester (HCC) Take 1 (one) tablet by mouth 2 times daily 60 tablet 3 07/16/2024 Active ARIPiprazole (Abilify) 5 MG tablet Take 2 (two) tablets by mouth once daily Active amphetamine-dext roamphetamine (ADDERALL) 30 MG tablet Take 30 mg by mouth every morning 07/16/2024 Discontinue d(List Clean-Up) amphetamine-dext roamphetamine XR 24hr (ADDERALL XR) 15 MG capsule Take 15 mg by mouth every morning 07/16/2024 Discontinue d(List Clean-Up) cloNIDine (CATAPRES) 0.1 MG tablet Take 1 (one) tablet by mouth 2 times daily 07/17/2024 Discontinue d(List Clean-Up) Fluticasone Propionate HFA (FLOVENT HFA IN) 07/17/2024 Disconti nue d(List Clean-Up) cloNIDine (Catapres) 0.2 MG tablet Take 1 (one) tablet by mouth once daily 05/10/2023 07/17/2024 Discontinue d(List Clean-Up) Active Problems Problem Noted Date Diagnosed Date Abnormal chromosomal and gen etic finding on screening of mother 07/16/2024 Overview (07/16/2024): High risk NIPT due to low fraction (1 in 17 risk for T13/T18/triploidy) 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 Hidradenitis suppurativa 06/13/2023 Bipolar 1 disorder, depressed 06/13/2020 Urine test positive for microalbuminuria 017 Overview (07/16/2024): Apr 20, 2016 - spot urine microalbumin/creatinine: 36 mg/g (< 30) Jul 19, 2016 ([place], [place]): first morning voided urine microalbumin/creatinine: 23 ug/g (< 30) Apr 20, 2016 - spot urine microalbumin/creatinine: 36 mg/g (< 30) Jul 19, 2016 ([place], [place]): first morning voided urine microalbumin/creatinine: 23 ug/g (< 30) Last Assessment & Plan: ? Nonspecific vs early diabetic related microalbuminuria 1. Obtain first morning voided urine specimen for microalbumin/creatinine ratio (laboratory requisition given at the time of the office visit). 2. Expectant observation. 3. Return appointment in three months. Assessment & Plan (06/29/2016 12:53 PM GLOBAL MARKETING MANAGER): ? Nonspecific vs early diabetic related microalbuminuria 1. Obtain first morning voided urine specimen for microalbumin/creatinine ratio (laboratory requisition given at the time of the office visit). 2. Expectant observation. 3. Return appointment in three months. Controlled type 2 diabetes bisi garcia without complication, without long-term current use of insulin 04/21/2016 Overview (06/29/2016): Apr 15, 2016 - [facility], [address] [place] [place] [address] Na 143 mmol/L, K 4.4 mmol/L, Cl [...] months. Assessment & Plan (06/29/2016 12:48 PM GLOBAL MARKETING MANAGER): Good glycemic control. 1. Metformin 1000 mg bid 2. Home glucose monitoring twice daily. 3. Daily physical exercise (60 minutes daily) to promote weight loss 4. Return appointment in three months. Assessment & Plan (04/21/2016 4:13 PM GLOBAL MARKETING MANAGER): New onset, probably type II, diabetes mellitus. [...] appointment in one month. Hypercholesterolemia 04/21/2016 Overview (07/16/2024): cholesterol 261 mg/dL (100-170); triglyceride 925 mg/dL (140-199), HDL- cholesterol 41 mg/dL (< 150), LDL-cholesterol mg/dL (< 130) Jul 19, 2016 - [facility] Cholesterol 151 mg/dL (140-199), triglycerides 235 mg/dL (< 150), HDL- cholesterol 37 mg/dL (> 40), LDL-cholesterol 67 (< 130) cholesterol 261 mg/dL (100-170); triglyceride 925 mg/dL (140-199), HDL- cholesterol 41 mg/dL (< 150), LDL-cholesterol mg/dL (< 130) Jul 19, 2016 - [facility] Cholesterol 151 mg/dL (140-199), triglycerides 235 mg/dL (< 150), HDL- cholesterol 37 mg/dL (> 40), LDL-cholesterol 67 (< 130) Last Assessment & Plan: Normal fasting serum cholesterol level in July, 1. Dietary counseling - decrease concentrated sweets/fats Assessment & Plan (02/03/2017 2:52 PM CDT): Normal fasting serum cholesterol level in July, 1. Dietary counseling - decrease concentrated sweets/fats Assessment & Plan (06/29/2016 12:45 PM GLOBAL MARKETING MANAGER): 1. Dietary counseling provided 2. Fasting lipid profile (laboratory requisition given at the time of the office visit). .3 Return appointment in three months. Assessment & Plan (04/21/2016 4:13 PM GLOBAL MARKETING MANAGER): ? Familial 1. Fasting lipid profile 2. Decrease dietary fat intake. Elevated transaminase level 04/21/2016 Overview (07/16/2024): Apr 15, 2016 - ALT 107 U/L Jul 19, 2016 - ALT 68 U/L (8-29); AST 34 U/L (14-37) Apr 15, 2016 - ALT 107 U/L Jul 19, 2016 - ALT 68 U/L (8-29); AST 34 U/L (14-37) Last Assessment & Plan: 1. Repeat serum AST and ALT 2. Consider Pediatric Gastroenterology referral for persistent elevation (rule out BURGOS) Assessment & Plan (02/03/2017 2:51 PM CDT): 1. Repeat serum AST and ALT 2. Consider Pediatric Gastroenterology referral for persistent elevation (rule out BURGOS) Assessment & Plan (06/29/2016 12:46 PM GLOBAL MARKETING MANAGER): ? Nonspecific elevation vs evolving BURGOS 1. Repeat serum ALT level (laboratory requisition given at the time of the office visit). 3. Expectant observation. 3. Return appointment in three months. Assessment & Plan (04/21/2016 4:14 PM GLOBAL MARKETING MANAGER): ? BURGOS 1. Repeat serum AST/ALT in one month. 2. Consider referral to Pediatric Gastroenterology Type 2 diabetes mellitus with polyneuropathy Overview (07/16/2024): Apr 15, 2016 - [facility], [address] [place], [place] [address] Na 143 mmol/L, K 4.4 mmol/L, Cl [...] loss 4. Return appointment in four months. Estimated Date of Delivery Comme nts Yes 01/26/2025 Based on last me nstrual period of 04/21/2024 Resolved Problems Problem Noted Date Diagnosed Date Resolved Date Mixed hyperlipidemia 06/29/2016 017 Overview (06/29/2016): Apr 15, 2016 - Elevated blood sugar 04/20/2016 017 Encounters Date Type Department Care Team Description 07/18/2024 12:16 PM GLOBAL MARKETING MANAGER Anesthesia Event [facility] [address] [place] [id number] Lamin Llanes MD 07/18/2024 12:05 PM GLOBAL MARKETING MANAGER - 07/18/2024 1:02 PM GLOBAL MARKETING MANAGER Surgery [facility] [address] [place] [address] Karla Zamudio MD SUCTION DILATION AND CURETTAGE 07/18/2024 9:32 AM GLOBAL MARKETING MANAGER - 07/18/2024 3:47 PM GLOBAL MARKETING MANAGER Hospital Encounter [facility] [address] [place] [id number] Karla Zamudio MD Surgery General Discharge Disposition: Home or Self Care 07/18/2024 Travel 07/17/2024 Patient Outreach [facility] [address] [place] [address] [address] [place] [id number] Yazmin Blackmon RN Care Management (Received a referral for SDOH needs. US report states no cardiac activity and pt has a scheduled D&C tomorrow. Will close this referral. ) 07/16/2024 11:34 AM GLOBAL MARKETING MANAGER - 07/16/2024 11:59 PM GLOBAL MARKETING MANAGER Hospital Encounter [facility] [address] [place] [address] Kimmy Sanderson MD Discharge Disposition: Home or Self Care 07/16/2024 11:33 AM GLOBAL MARKETING MANAGER Hospital Encounter [facility] [address] [place] [address] Kimmy Sanderson MD Discharge Disposition: Home or Self Care 07/16/2024 11:32 AM GLOBAL MARKETING MANAGER Hospital Encounter [facility] [address] [place] [address] Alphonse Quispe MD Discharge Disposition: Home or Self Care 07/16/2024 11:31 AM GLOBAL MARKETING MANAGER Hospital Encounter [facility] [address] [place] [address] Alphonse Quispe MD Discharge Disposition: Home or Self Care 07/16/2024 Travel 07/11/2024 Telephone [facility] [address] [place] [address] Radha Romero care program director from Last 3 Months Immunizations Name Administration Dates Next Due DTaP VACCINE IM (6wk-6yrs) 12/24/2004,,10/10/2001,10/10,2000,2000 HEP A PED/ADULT VACCINE 12/24/2004 HEP A PEDS 2 DOSE 01/14/2004 HEP B VACCINE, PED/ADOL 01/18/2001,2000, HIB VACCINE 2000,2000,2000 HIB-PRP-OMP 3 DOSE 10/10/2001 Human Papilloma Virus Elizabeth valent Vaccine 04/16/2014,02/06/2013,12/03/2012 INFLUENZA VACCINE 03/21/2019, 6,04/16/2014,06/14,02/24/2009,04/17/2008 INFLUENZA VACCINE, QUADR. (F LUZONE; FLULAVAL; FLUARIX; AFLURIA QUADRIVALENT; 6MO+), 0.5 ML (IIV4) 06/13/2023 MENINGOCOCCAL CONJUGATE (MCV4P) 12/03/2012 MENINGOCOCCAL MCV4O 01/17/2019 MMR 10/04/2005, 4,10/27/2001,07/30 Meningococcal B Recombinant 2 Dose, IM 9 PNEUMOCOCCAL PCV7 CONJ, PEDS 07/30/2001, 2000,2000,06/15 POLIO IPV 10/04/2005, 4,10/10/2001,10/10,2000,2000 TDAP (7yrs+) 06/13/2023,12/03/2012 VARICELLA 12/26/2006,09/26/2006,04/12/2001 Family History Medical History Relation Name Comments Diabetes Maternal Grandmother Asthma Mother Hypercholesterolemia Mother Hypertension Mother Diabetes Paternal Grandfather Relation Name Status Comments Maternal Grandmother Mother Paternal Grandfather Social History Tobacco Use Types Packs/Day Years Used Date Smoking Tobacco: Never Smokeless Tobacco: Never Tobacco Cessation:Counseling Given: Not Answered Alcohol Use Standard Drinks/Week Comments Not Currently 0 (1 standard drink = 0.6 oz pur e alcohol) AUDIT-C Answer Date Recorded Q1: How often do you have a drink containing alc ohol? Never 07/18/2024 Average Number of Drinks Not on file 025 Frequency of Binge Drinking Not on file 07/06 Overall Financial Resource Strain (CARDIA) Answe r Date Recorded How hard is it for you to pa y for the very basics like food, housing, medical care, and heating? Somewhat hard 07/16/2024 [facility] [place] [facility] - Occupational Stress Questionnaire Answer Date Recorded Do you feel stress - tense, restless, nervous, or anxious, or unable to sleep at night because your mind is troubled all the time - these days? Only a little 07/16/2024 Hunger Vital Sign Answer Date Recorded Within the past 12 months, y ou worried that your food would run out before you got the money to buy more. Never true 07/16/19 25 Within the past 12 months, t he food you bought just didn't last and you didn't have money to get more. Never true 07/16/2024 PRAPARE - Transportation Answer Date Re corded In the past 12 months, has l ack of transportation kept you from medical appointments or from getting medications? No 07/06 In the past 12 months, has l ack of transportation kept you from meetings, work, or from getting things needed for daily living? No 07/16/2024 [place] Depression Scale Answer Date Recorded [place] Depression Scale Total 11 07/16/2024 The thought of harming myself has occurred to me . Hardly ever 07/16/2024 Housing Stability Vital Sign Answer Jorge A e Recorded In the last 12 months, was t here a time when you were not able to pay the mortgage or rent on time? No 07/16/2024 In the past 12 months, how m any times have you moved where you were living? 2 07/16/2024 At any time in the past 12 m [facility], were you homeless or living in a senior living (including now)? No 07/16/2024 Estimated Date of Delivery Comme nts Yes 01/26/2025 Based on last me nstrual period of 04/21/2024 Sex and Gender Information Value Date Recorded Sex Assigned at Not on file Gender Identity Not on file Sexual Orientation Not on file Last Filed Vital Signs Vital Sign Reading Time Taken Comments Blood Pressure 107/70 07/18/2024 2:55 PM GLOBAL MARKETING MANAGER Pulse 90 07/18/2024 2:55 PM GLOBAL MARKETING MANAGER Temperature 36.3 C (97.3 F) 07/18/2024 1:42 PM GLOBAL MARKETING MANAGER Respiratory Rate 16 07/18/2024 2:55 PM GLOBAL MARKETING MANAGER Oxygen Saturation 97% 07/18/2024 2:55 PM GLOBAL MARKETING MANAGER Inhaled Oxygen Concentration - - Weight 86.2 kg (190 lb) 07/18/2024 10:04 AM GLOBAL MARKETING MANAGER Height 162.6 cm (5' 4 ) 07/18/2024 10:04 AM GLOBAL MARKETING MANAGER Body Mass Index 32.61 07/18/2024 10:04 AM GLOBAL MARKETING MANAGER Plan of Treatment Upcoming Encounters Date Type Department Care Team (Late st Contact Info) Description 08/13/2024 12:40 PM CDT Appointment [facility] [address] [place] [address] Health Maintenance Due Date Last Done Comments PAP SMEAR 2000 PNEUMOCOCCAL VACCINE (1 of 1 - PPSV23) 2006 07/30/2001, 2000, 2000, Additional history exists HIV SCREENING 2015 CHLAMYDIA/GONORRHEA SCREENING 2016 DIABETES RETINOPATHY SCREENING 06/29/2016 HEPATITIS C SCREENING 04/06/2018 DIABETES-FOOT EXAM WITH MONOFILAMENT 2018 DIABETES-SERUM CREATININE 2018 02/02/2017, MENINGOCOCCAL (Group B) VACC INE (2 of 2 - Bexsero SCDM 2-dose series) 07/20/2019 01/17/2019 DIABETES-HGB A1C 12/12/2023 06/13/2023, , 06/28/2016, Additional history exists COVID-19 VACCINE (1 - 2023-2 5 season) 2024 INFLUENZA VACCINE (#1) 2024 , 03/21/2019, 04/12/2016, Additional history exists DIABETES - URINE PROTEIN SCREENING 06/05/20242016, 04/20/2016 OB-TDAP CURRENT 10/27/2024 06/13/2023, 06/2012 DTAP/TDAP/TD VACCINES (8 - T d or Tdap) 06/13/2033 06/13/2023, 12/03/2012, 12/24/2004, Additional history exists ZOSTER VACCINE (1 of 2) 2050 HEPATITIS B VACCINE Completed 01/18/2001, 2000, 2000 HIB VACCINE Completed 10/10/2001, 01/2001, 2000, Additional history exists HPV VACCINE Completed 04/16/2014, 09/2012, 12/03/2012 MENINGOCOCCAL VACCINE Completed 01/17/2019, 013 Respiratory Syncytial Virus (RSV) Vaccine Pt: or over 60 yrs (No Doses Required) Completed Procedures Procedure Name Priority Date/Time Associated Diagnosis Comments GLUCOSE - POINT OF CARE Routine 07/18/2024 1:06 PM GLOBAL MARKETING MANAGER PATHOLOGY TISSUE EXAM (STL) Routine 07/18/2024 12:37 PM GLOBAL MARKETING MANAGER Diagnosis unknown LARYNGEAL MASK AIRWAY Routine 07/18/2024 12:23 PM GLOBAL MARKETING MANAGER MD SURG RX MISSED MISCARRIAGE,1ST TRI 07/18/2024 11:49 AM GLOBAL MARKETING MANAGER Diagnosis unknown BLOOD TYPE VERIFICATION Routine 07/18/2024 10:25 AM GLOBAL MARKETING MANAGER Pre-op testing TYPE + SCREEN PANEL BERONICA 07/18/2024 1 0:19 AM GLOBAL MARKETING MANAGER Pre-op testing GLUCOSE - POINT OF CARE Routine 07/18/2024 10:18 AM GLOBAL MARKETING MANAGER BETA-2 GLYCOPROTEIN 1 ANTIBODY IGG/IGM PANEL Routine 07/16/2024 3:37 PM GLOBAL MARKETING MANAGER Recurrent loss without current CARDIOLIPIN ANTIBODY IGG/IGM PANEL Routine 07/16/2024 3:37 PM GLOBAL MARKETING MANAGER Recurrent loss without current LUPUS ANTICOAGULANT PANEL Routine 07/16/2024 3:37 PM GLOBAL MARKETING MANAGER Recurrent loss without current TSH REFLEX FREE T4 Routine 07/16/2024 3: 37 PM GLOBAL MARKETING MANAGER Recurrent loss without current SONOGRAM - COMPLETE Routine 07/16/2024 1 :23 PM GLOBAL MARKETING MANAGER HEMOGLOBIN A1C - POCT (IP) BEAKER Routine [...] Relevant to Health Maintenance Results * (ABNORMAL) GLUCOSE - POINT OF CARE (07/18/2024 1:06 PM GLOBAL MARKETING MANAGER) Only the most recent of2 resultswithin the time period is included. Glucose WB/POC 133(H) 70 - 99 mg/dL 07/20/2024 1:56 AM GLOBAL MARKETING MANAGER [facility] Specimen Type Cap Fingerstick 2024 1:56 AM GLOBAL MARKETING MANAGER [facility] Blood BLOOD SPECIMEN / Unknown 07/18/2024 1:06 PM GLOBAL MARKETING MANAGER 07/20/2024 1:56 AM GLOBAL MARKETING MANAGER Karla Zamudio MD LAB - POINT OF CARE ORDERABLES [facility] [address] [place] [address] * PATHOLOGY TISSUE EXAM (STL) (07/18/2024 12:37 PM GLOBAL MARKETING MANAGER) Case Report Surgical Pathology Report Case: [id number] Authorizing Provider: Karla Zamudio MD Collected: 07/18/2024 12:37 PM Ordering Location: [facility] Received: 07/18/2024 01:15 PM Pathologist: Kirt Billings MD Specimen: Products of Conception 07/19/2024 9:40 AM [facility] Final Diagnosis Uterine contents, dilation and curettage: Products of conception. 07/19/2024 9:40 AM [facility] Clinical History Missed 07/19/2024 9:40 AM [facility] Gross Description The specimen is identified with the patient's name and date of . Received in formalin, labeled specimen A, products of conception are multiple fragments of soft pink brasher tissue admixed with blood clot measuring 5 x 5 x 5 cm in aggregate. parts are not identified. Soaker Meat sections submitted in cassette [id number]. JULIO CESAR/DAVID 07/19/2024 9:40 AM [facility] Microscopic Description Sections show immature chorionic villi and decidua. 07/19/2024 9:40 AM [facility] Pathologist Location at [facility] 07/19/2024 9:40 AM [facility] Disclaimer All histochemical and/or immunohistochemical results are interpreted with controls that demonstrate appropriate staining reactions before reporting results. Note on use of immunocytochemistry reagents: This test was developed and its performance characteristic determined by [facility], Department of Laboratory Medicine. It has not been cleared or approved by the U.S. Food and Drug Administration (FDA). The FDA has determined that such clearance or approval is not necessary. The test is used for clinical purpose. It should not be regarded as investigational or for research. This laboratory is certified to perform high complexity testing. The performance characteristics of the IHC/PARESH assays have been validated on formalin-fixed paraffin embedded tissues only. The assays have not been validated on decalcified tissues. Results should be interpreted with caution. 07/19/2024 9:40 AM GLOBAL MARKETING MANAGER [facility] Embedded Images 07/19/2024 9:40 AM GLOBAL MARKETING MANAGER [facility] Pathology/Cytolo gy PRODUCTS OF CONCEPTION TISSUE SPECIMEN / Unknown 07/18/2024 12:37 PM GLOBAL MARKETING MANAGER 07/18/2024 1:15 PM GLOBAL MARKETING MANAGER Comment:Pre-op diagnosis: Diagnosis unknown [R69] Karla Zamudio MD LAB - PATHOLOGY/CYTO LOGY ORDERABLES [facility] [address] [place] [address] * LARYNGEAL MASK AIRWAY (07/18/2024 12:23 PM GLOBAL MARKETING MANAGER) Narrative Alessio Fuentes APRN-CRNA - 07/18/2024 12:23 PM GLOBAL MARKETING MANAGER Alessio Fuentes APRN-CRNA 07/18/2024 12:23 PM LMA Placement Procedure/LDA Note: Patient Location: OR. LMA Insertion Date/Time: 07/18/2024 12:19 PM Procedure: LMA Pretreatment: 100% O2 Induction: standard IV Patient position: supine. Mask Ventilation: not attempted Type: LMA Size: 4 Number of Attempts: 1. Cuff volume (mL): 0 Placement verified by: direct visualization and CO2 monitor Procedure Start Time: 07/18/2024 12:19 PM. Staff Section Anesthesia Provider: Alessio Fuentes APRN-CRNA Provider #1: Khoi Ortega, Performed the procedure. Lamin Llanes MD GENERAL ANESTHESIA ORDERABLES * BLOOD TYPE VERIFICATION (07/18/2024 10:25 AM GLOBAL MARKETING MANAGER) ABO Rh O POS 07/18/2024 10:55 AM GLOBAL MARKETING MANAGER [facility] Blood Bank BLOOD SPECIMEN / Unknown Venipuncture / Unknown 07/18/2024 10:25 AM GLOBAL MARKETING MANAGER 07/18/2024 10:26 AM GLOBAL MARKETING MANAGER Artemio Casanova MD LAB - BLOOD BANK ORD ERABLES Performing Organization Address [facility] Co de Phone Number [facility] [address] [place] [address] * TYPE + SCREEN PANEL (07/18/2024 10:19 AM GLOBAL MARKETING MANAGER) ABO Rh O POS 07/18/2024 10:55 AM GLOBAL MARKETING MANAGER [facility] Comment:No history; collect retype. Antibody Screen NEG 10:55 AM GLOBAL MARKETING MANAGER [facility] Blood Bank BLOOD SPECIMEN / Unknown Venipuncture / Unknown 07/18/2024 10:19 AM GLOBAL MARKETING MANAGER 07/18/2024 10:21 AM GLOBAL MARKETING MANAGER Artemio Casanova MD LAB - BLOOD BANK ORD ERABLES Performing Organization Address [facility] Co de Phone Number [facility] [address] [place] [address] * TSH REFLEX FREE T4 (07/16/2024 3:37 PM GLOBAL MARKETING MANAGER) TSH 0.466 0.350 - 4.940 uIU/mL 07/16/2024 4:32 PM GLOBAL MARKETING MANAGER [facility] Blood BLOOD SPECIMEN / Unknown Venipuncture / Unknown 07/16/2024 3:37 PM GLOBAL MARKETING MANAGER 07/16/2024 3:51 PM GLOBAL MARKETING MANAGER Gerber Bah MD LAB - CHEMISTRY ORDERABLES Performing Organization Address [place]/[facility] Co de Phone Number [facility] [address] [place] [address] * LUPUS ANTICOAGULANT PANEL (07/16/2024 3:37 PM GLOBAL MARKETING MANAGER) APTT 27.4 23.0 - 38.4 Seconds 07/19/2024 10:[address] [facility] PT 12.9 12.1 - 14.8 Seconds 07/19/2024 10:[address] [facility] INR 1.0 See Comment 07/19/2024 10:07 AM [facility] Buffer 46.2 Seconds 025 10:07 AM [facility] [place] Phospholipid 40.4 Seconds 07/19/2024 10:07 AM [facility] [place] Delta 5.8 <8.0 Seconds 07/19/2024 10:07 AM [facility] Interpretation [facility] Negative 07/19/2024 10:07 AM [facility] Comment:Up to 15-20% of yoel ents with lupus anticoagulant associated with antiphospholipid antibody syndrome (APAS) will have negative [place] results. For these patients we recommend additional testing to include the Dilute Nakul Viper Venom Time (DRVVT) test. Immunoassay measurements of anti-cardiolipin and anti-beta-2 glycoprotein 1 are recommended if the DRVVT, and STACLOT-LA tests are negative and there is clinical suspicion of APAS. Blood BLOOD SPECIMEN / Unknown Venipuncture / Unknown 07/16/2024 3:37 PM GLOBAL MARKETING MANAGER 07/16/2024 3:51 PM GLOBAL MARKETING MANAGER Gerber Bah MD LAB - HEMATOLOG Y ORDERABLES Performing Organization Address City/State/[facility] Co de Phone Number [facility] [address] [place] [phone], [facility] [phone] * CARDIOLIPIN ANTIBODY IGG/IGM PANEL (07/16/2024 3:37 PM GLOBAL MARKETING MANAGER) Cardiolipin Antibody IgG <9 0 - 14 GPL U/mL 07/18/2024 3:07 PM GLOBAL MARKETING MANAGER [facility] ([facility]) Comment: Negative: <15 Indeterminate: 15 - 20 Low-Med Positive: >20 - 80 High Positive: >80 Cardiolipin Antibody IgM <9 0 - 12 MPL U/mL 07/18/2024 3:07 PM GLOBAL MARKETING MANAGER [facility] ([facility]) Comment: Negative: <13 Indeterminate: 13 - 20 Low-Med Positive: >20 - 80 High Positive: >80 Blood BLOOD SPECIMEN / Unknown Venipuncture / Unknown 07/16/2024 3:37 PM GLOBAL MARKETING MANAGER 07/16/2024 3:51 PM GLOBAL MARKETING MANAGER Narrative [facility] ([facility]) - 07/18/2024 3:07 PM GLOBAL MARKETING MANAGER Performed at: - [address] [id number] Sports Trainer: Ad Harris PhD, Phone: [phone] Gerber Bah MD LAB - SEROLOGY ORDERABLES Performing Organization Address [facility] de Phone Number [facility] ([facility]) [address] [place] [address] * BETA-2 GLYCOPROTEIN 1 ANTIBODY IGG/IGM PANEL (07/16/2024 3:37 PM GLOBAL MARKETING MANAGER) [facility] Beta-2 Glycoprotein I Antibody IgG <9 0 - 20 GPI IgG units 07/18/2024 2:08 PM GLOBAL MARKETING MANAGER [facility] ([facility]) Comment: The reference interval reflects a 3SD or 99th percentile interval, which is thought to represent a potentially clinically significant result in accordance with the International Consensus Statement on the classification criteria for definitive antiphospholipid syndrome (APS). J Thromb Haem 2006;4:295-306. Beta-2 Glycoprotein I Antibody IgM <9 0 - 32 GPI IgM units 07/18/2024 2:08 PM GLOBAL MARKETING MANAGER [facility] ([facility]) Comment: The reference interval reflects a 3SD or 99th percentile interval, which is thought to represent a potentially clinically significant result in accordance with the International Consensus Statement on the classification criteria for definitive antiphospholipid syndrome (APS). J Thromb Haem 2006;4:295-306. Blood BLOOD SPECIMEN / Unknown Venipuncture / Unknown 07/16/2024 3:37 PM GLOBAL MARKETING MANAGER 07/16/2024 3:51 PM GLOBAL MARKETING MANAGER Narrative [facility] ([facility]) - 07/18/2024 2:08 PM GLOBAL MARKETING MANAGER Performed at: - [address] [id number] Sports Trainer: Ad Harris PhD, Phone: [phone] Gerber Bah MD LAB - CHEMISTRY ORDERABLES Performing Organization Address City/[facility]/ZIP Co de Phone Number [facility] ([facility]) [address] [place] [address] * SONOGRAM - COMPLETE (07/16/2024 1:23 PM GLOBAL MARKETING MANAGER) Linked Results Indication ======== Dating/NT Abnormal NIPT Diabetes mellitus, type II Obesity, Class II History ====== OB History 4. Para 0 Lab Tests Test Date Result NIPT High Risk d/t low FF- T13/T18 triploidy 1 in 17 (6%) Maternal Assessment = Physical Exam Height 163 cm, 5 ft 4 in. Initial weight 76 kg, 168 lb. Initial BMI 28.84 kg/m Method ====== Transabdominal Ultrasound. View: Sufficient ========= Pop . Number of fetuses: 1 Dating ====== Date Details Gest. age DARLEEN LMP 04/21/2024 Cycle: regular cycle 12 w + 2 d 01/26/2025 Stated DARLEEN 12 w + 2 d 01/26/2025 U/S 07/16/2024 based upon CRL 11 w + 1 d 02/03/2025 Assigned dating based on the LMP, selected on 07/16/2024 12 w + 2 d 01/26/2025 General Evaluation Cardiac activity absent Amniotic fluid: appears normal Biometry FHR 0 bpm CRL 43.5 mm 11w 1d <1% Hadlock less than expected Maternal Structures Right Ovary Visualized Left Ovary Not visualized Impression ========= Single, intrauterine without cardiac activity Follow-up ======== Appointment in Fellow clinic to follow and discuss plan of care. Coding ====== Procedures [id number]: 1st Trimester [employer] PACS Anatomical Region Laterality Modality Other 07/16/2024 1:23 PM GLOBAL MARKETING MANAGER Augusta Leggett MD [facility] ORDERABLES * (ABNORMAL) HEMOGLOBIN A1C - POCT (IP) BEAKER (02/02/2017 2:46 PM CDT) Hemoglobin A1c POCT 6.8(A) 3.4 - 6.1 % [facility] PO[facility] QC Verified Yes Yes [facility] PO CT TESTING Blood BLOOD SPECIMEN / Unknown 02/02/2017 2:46 PM CDT Deon Monteiro MD LAB - POINT OF CARE ORDERABLES Performing Organization Address [facility] Co de Phone Number [facility] [address] [phone] * (ABNORMAL) MICROALB/CREAT RATIO URINE RANDOM PANEL (02/02/2017 2:38 PM CDT) Creatinine Urine 103.98 mg/dL 02/03/20 17 4:18 PM CDT [facility] Microalbumin Urine 3.3(H) <1.7 mg/dL 02/02/2017 4:18 PM CDT [facility] Microalbumin/Crea tinine Ratio 32(H) <30 mg/g 02/02/2017 4:18 PM CDT [facility] Urine URINE SPECIMEN OBTAINED BY CLEAN CATCH PROCEDURE / Unknown Collection / Unknown 02/02/2017 2:38 PM CDT 02/02/2017 3:10 PM CDT Deon Monteiro MD LAB - URINE CHEMISTR Y ORDERABLES Performing Organization Address City/[facility]/ZIP Co de Phone Number [facility] [address] [place] [address] * (ABNORMAL) COMPREHENSIVE METABOLIC PANEL (02/02/2017 2:38 PM CDT) Glucose 208(H) 70 - 105 mg/dL 02/02/2017 4:07 PM CDT [facility] Sodium 136 136 - 145 mmol/L 02/02/2017 4:07 PM CDT [facility] Potassium 4.0 3.5 - 5.1 mmol/L 02/02/2017 4:07 PM [facility] Chloride 101 98 - 107 mmol/L 02/02/2017 4:07 PM [facility] CO2 26 20 - 28 mmol/L 02/02/2017 4:07 PM [facility] Calcium 9.75 9.08 - 10.48 mg/dL 02/02/2017 4:07 PM [facility] Anion Gap 9 5 - 20 mmol/L 02/02/2017 4:07 PM [facility] BUN 14.0 5.3 - 18.7 mg/dL 02/02/2017 4:07 PM [facility] Creatinine 0.50(L) 0.61 - 1.07 mg/dL 02/02/2017 4:07 PM [facility] Alkaline Phosphatase 74(L) 100 - 390 U/L 02/02/2017 4:07 PM [facility] ALT 68(H) 8 - 65 U/L 02/02/2017 4:07 PM [facility] AST 48(H) 3 - 35 U/L 02/02/2017 4:07 PM [facility] Protein Total 8.1 6.3 - 8.2 gm/dL 02/02/2017 4:07 PM [facility] Albumin 4.5 3.3 - 4.9 gm/dL 02/02/2017 4:07 PM [facility] Bilirubin Total 0.3 0.3 - 1.2 mg/dL 02/02/2017 4:07 PM [facility] eGFR by MDRD mL/min/1. 73m2 02/02/2017 4:07 PM [facility] Comment: eGFR calculations are not performed for children under 18 years old. eGFR by MDRD mL/min/1. 73m2 02/02/2017 4:07 PM [facility] Comment: eGFR calculations are not performed for children under 18 years old. 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
--- OUTSIDE RECORDS SUMMARY | 2024-07-22 19:47 | XMS_ITS | Patient Health Summary ---
Author Organization [facility] Address [address] [place] [address] Care Team Providers Care Roving Can Tender Name Role Phone Gerber Betts Kg LOGAN Primary Care Provider + Note from [facility],non-owned Affiliates and Associated Physician Practices is amultiple site organization consisting of ambulatory clinics and hospital sitesin [place], [place], [place] and [place]. This disclosure is being madepursuant to the Care Everywhere program and may not contain all information available regarding this patient. Last updated 18.[facility] Allergies * Codeine(Urticaria) -Medium Criticality * Morphine(Urticaria) -Medium Criticality Medications * Be aware that medications may not be up to date on this document. Alwaysverify current medications with the patient. * albuterol HFA (PROVENTIL;VENTOLIN;PROAIR) 108 (90 BASE) MCG/ACT inhaler Inhale 2 (two) puffs by mouth every 6 hours as needed * Blood Glucose Monitoring Suppl (TRUETRACK BLOOD [...] sugar 2-3 times daily. 5 refills remaining * amphetamine-dextroamphetamine XR 24hr (Adderall XR) 20 MG capsule(Started 05/10/2023) Take 1 (one) capsule by mouth every morning * metFORMIN ER 24hr (Glucophage XR) 500 MG tablet(Started 06/13/2023) Take 1 (one) tablet by mouth daily with dinner * metFORMIN ER 24hr (Glucophage XR) 500 MG tablet(Started 07/16/2024) Take 1 (one) tablet by mouth 2 times daily 3 refills by 07/16/2025 * ARIPiprazole (Abilify) 5 MG tablet Take 2 (two) tablets by mouth once daily Ended Medications* amphetamine-dextroamphetamine (ADDERALL) 30 MG tablet (Discontinued) Take 30 mg by mouth every morning * amphetamine-dextroamphetamine XR 24hr (ADDERALL XR) 15 MG capsule (Discontinued) Take 15 mg by mouth every morning * cloNIDine (CATAPRES) 0.1 MG tablet(Discontinued) Take 1 (one) tablet by mouth 2 times daily * Fluticasone Propionate HFA (FLOVENT HFA IN)(Discontinued) * cloNIDine (Catapres) 0.2 MG tablet(Started 05/10/2023)(Discontinued) Take 1 (one) tablet by mouth once daily Active Problems Problem Noted Date Diagnosed Date Abnormal chromosomal and gen etic finding on screening of mother 07/16/2024 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 Hidradenitis suppurativa 06/13/2023 Bipolar 1 disorder, depressed 06/13/2020 Urine test positive for microalbuminuria 017 Controlled type 2 diabetes m ellitus without complication, without long-term current use of insulin 04/21/2016 Hypercholesterolemia 04/21/2016 Elevated transaminase level 04/21/2016 Type 2 diabetes mellitus with polyneuropathy Resolved Problems Problem Noted Date Diagnosed Date Resolved Date Mixed hyperlipidemia 06/29/2016 017 Elevated blood sugar 04/20/2016 017 Immunizations * DTaP VACCINE IM (6wk-6yrs)(Given 12/24/2004, 04/20/2004, 10/10/2001, 2000, 2000, 2000) * HEP A PED/ADULT VACCINE(Given 12/24/2004) * HEP A PEDS 2 DOSE(Given 01/14/2004) * HEP B VACCINE, PED/ADOL(Given 01/18/2001, 2000, 2000) * HIB VACCINE(Given 2000, 2000, 2000) * HIB-PRP-OMP 3 DOSE(Given 10/10/2001) * Human Papilloma Virus Quadrivalent Vaccine(Given 04/16/2014, 02/06/2013, 12/03/2012) * INFLUENZA VACCINE(Given 03/21/2019, 04/12/2016, 04/16/2014, 06/14/2012, 02/24/2009, 04/17/2008) * INFLUENZA VACCINE, QUADR. (FLUZONE; FLULAVAL; FLUARIX; AFLURIA QUADRIVALENT; 6MO+), 0.5 ML (IIV4)(Given 06/13/2023) * MENINGOCOCCAL CONJUGATE (MCV4P)(Given 12/03/2012) * MENINGOCOCCAL MCV4O(Given 01/17/2019) * MMR(Given 10/04/2005, 04/20/2004, 10/27/2001, 07/30/2001) * Meningococcal B Recombinant 2 Dose, IM(Given 01/17/2019) * PNEUMOCOCCAL PCV7 CONJ, PEDS(Given 07/30/2001, 2000, 2000, 2000) * POLIO IPV(Given 10/04/2005, 04/20/2004, 10/10/2001, 2000, 2000, 2000) * TDAP (7yrs+)(Given 06/13/2023, 12/03/2012) * VARICELLA(Given 12/26/2006, 09/26/2006, 04/12/2001) Social History Tobacco Use Types Packs/Day Years [...] medical care, and heating? Somewhat hard 07/16/2024 [facility] - Occupational Stress [...] things needed for daily living? No 07/16/2024 [place] Depression Scale Answer Date Recorded [place] Depression Scale Total 11 07/16/2024 The thought [...] [facility] the [facility] were you homeless or living in a nursing home (including now)? No 07/16/2024 Estimated Date of Delivery Comme nts Yes 01/26/2025 Based on last me nstrual period of 04/21/2024 Sex and Gender Information Value Date Recorded Sex Assigned at Not on file Gender Identity Not on file Sexual Orientation Not on file Last Filed Vital Signs Vital Sign Reading Time Taken Comments Blood Pressure 107/70 07/18/2024 2:55 PM COMPLETIONS ENGINEER Pulse 90 07/18/2024 2:55 PM COMPLETIONS ENGINEER Temperature 36.3 C (97.3 F) 07/18/2024 1:42 PM COMPLETIONS ENGINEER Respiratory Rate 16 07/18/2024 2:55 PM COMPLETIONS ENGINEER Oxygen Saturation 97% 07/18/2024 2:55 PM COMPLETIONS ENGINEER Inhaled Oxygen Concentration - - Weight 86.2 kg (190 lb) 07/18/2024 10:04 AM COMPLETIONS ENGINEER Height 162.6 cm (5' 4 ) 07/18/2024 10:04 AM COMPLETIONS ENGINEER Body Mass Index 32.61 07/18/2024 10:04 AM COMPLETIONS ENGINEER Procedures * GLUCOSE - POINT OF CARE(Performed 07/18/2024) * PATHOLOGY TISSUE EXAM (STL)(Performed 07/18/2024) Performed for Diagnosis unknown * LARYNGEAL MASK AIRWAY(Performed 07/18/2024) * WA SURG RX MISSED MISCARRIAGE,1ST TRI(Performed 07/18/2024) Performed for Diagnosis unknown * BLOOD TYPE VERIFICATION(Performed 07/18/2024) Performed for Pre-op testing * TYPE + SCREEN PANEL(Performed 07/18/2024) Performed for Pre-op testing * GLUCOSE - POINT OF CARE(Performed 07/18/2024) * BETA-2 GLYCOPROTEIN 1 ANTIBODY IGG/IGM PANEL(Performed 07/16/2024) Performed for Recurrent loss without current * CARDIOLIPIN ANTIBODY IGG/IGM PANEL(Performed 07/16/2024) Performed for Recurrent loss without current * LUPUS ANTICOAGULANT PANEL(Performed 07/16/2024) Performed for Recurrent loss without current * TSH REFLEX FREE T4(Performed 07/16/2024) Performed for Recurrent loss without current * SONOGRAM - COMPLETE(Performed 07/16/2024) * HEMOGLOBIN A1C - POCT (IP) THOMAS(Performed 02/02/2017) Performed for Controlled type 2 diabetes mellitus without complication, without long-term current use of insulin ([facility]) * MICROALB/CREAT RATIO URINE RANDOM PANEL(Performed 02/02/2017) Performed for Controlled type 2 diabetes mellitus without complication, without long-term current use of insulin ([facility]) * LIPID PROFILE(Performed 02/02/2017) Performed for Controlled type 2 diabetes mellitus without complication, without long-term current use of insulin ([facility]) * COMPREHENSIVE METABOLIC PANEL(Performed 02/02/2017) Performed for Controlled type 2 diabetes mellitus without complication, without long-term current use of insulin ([facility]) * LAB RESULTS ORDER(Performed 08/08/2016) * HEMOGLOBIN [...] for Elevated blood sugar Results * (ABNORMAL) GLUCOSE - POINT OF CARE (07/18/2024 1:06 PM COMPLETIONS ENGINEER) Only the most recent of2 resultswithin the time period is included. [facility] Glucose WB/POC 133(H) 70 - 99 mg/dL 07/20/2024 1:56 AM COMPLETIONS ENGINEER [facility] Specimen Type Cap Fingerstick 2024 1:56 AM COMPLETIONS ENGINEER [facility] Blood BLOOD SPECIMEN / Unknown 07/18/2024 1:06 PM COMPLETIONS ENGINEER 07/20/2024 1:56 AM COMPLETIONS ENGINEER Karla Zamudio MD LAB - POINT OF CARE ORDERABLES [facility] [address] [place] [address] * PATHOLOGY TISSUE EXAM (STL) (07/18/2024 12:37 PM COMPLETIONS ENGINEER) Pathologist [facility] Case Report Surgical Pathology Report Case: [id number] Authorizing Provider: Karla Zamudio MD Collected: 07/18/2024 12:37 PM Ordering Location: [facility] PERIOPERATIVE Received: 07/18/2024 01:15 PM Pathologist: Kirt Billings MD Specimen: Products of Conception 07/19/2024 9:40 AM [facility] Final Diagnosis Uterine contents, dilation and curettage: Products of conception. 07/19/2024 9:40 AM [facility] Clinical History Missed 07/19/2024 9:40 AM [facility] Gross Description The specimen is identified with the patient's name and date of . Received in formalin, labeled specimen A, products of conception are multiple fragments of soft pink brasher tissue admixed with blood clot measuring 5 x 5 x 5 cm in aggregate. parts are not identified. Filter Changer sections submitted in cassette [id number]. JULIO CESAR/DAVID 07/19/2024 9:40 AM [facility] Microscopic Description Sections show immature chorionic villi and decidua. 07/19/2024 9:40 AM [facility] Pathologist Location at [facility] 07/19/2024 9:40 AM [facility] Disclaimer All histochemical and/or immunohistochemical results are interpreted with controls that demonstrate appropriate staining reactions before reporting results. Note on use of immunocytochemistry reagents: This test was developed and its performance characteristic determined by [facility], Department of Laboratory Medicine. It has not [...] be interpreted with caution. 07/19/2024 9:40 AM [facility] Embedded Images 07/19/2024 9:40 AM [facility] Pathology/Cytolo gy PRODUCTS OF CONCEPTION TISSUE SPECIMEN / Unknown 07/18/2024 12:37 PM COMPLETIONS ENGINEER 07/18/2024 1:15 PM COMPLETIONS ENGINEER Comment:Pre-op diagnosis: Diagnosis unknown [R69] Karla Zamudio MD LAB - PATHOLOGY/CYTO LOGY ORDERABLES Performing Organization Address [facility] Co de Phone Number [facility] [address] [place] [address] * LARYNGEAL MASK AIRWAY (07/18/2024 12:23 PM COMPLETIONS ENGINEER) Narrative Alessio Fuentes APRN-CRNA - 07/18/2024 12:23 PM COMPLETIONS ENGINEER Alessio Fuentes APRN-CRNA 07/18/2024 12:23 PM LMA [...] * BLOOD TYPE VERIFICATION (07/18/2024 10:25 AM COMPLETIONS ENGINEER) ABO Rh O POS 07/18/2024 10:55 AM COMPLETIONS ENGINEER [facility] Blood Bank BLOOD SPECIMEN / Unknown Venipuncture / Unknown 07/18/2024 10:25 AM COMPLETIONS ENGINEER 07/18/2024 10:26 AM COMPLETIONS ENGINEER Artemio Casanova MD LAB - BLOOD BANK ORD ERABLES Performing Organization Address City/[facility]/ZIP Co de Phone Number [facility] [address] [phone] * TYPE + SCREEN PANEL (07/18/2024 10:19 AM COMPLETIONS ENGINEER) ABO Rh O POS 07/18/2024 10:55 AM COMPLETIONS ENGINEER [facility] Comment:No history; collect retype. Antibody Screen NEG 10:55 AM COMPLETIONS ENGINEER [facility] Blood Bank BLOOD SPECIMEN / Unknown Venipuncture / Unknown 07/18/2024 10:19 AM COMPLETIONS ENGINEER 07/18/2024 10:21 AM COMPLETIONS ENGINEER Artemio Casanova MD LAB - BLOOD BANK ORD ERABLES Performing Organization Address City/[facility]/ZIP Co de Phone Number [facility] [address] [phone] * TSH REFLEX FREE T4 (07/16/2024 3:37 PM COMPLETIONS ENGINEER) TSH 0.466 0.350 - 4.940 uIU/mL 07/16/2024 4:32 PM COMPLETIONS ENGINEER [facility] Blood BLOOD SPECIMEN / Unknown Venipuncture / Unknown 07/16/2024 3:37 PM COMPLETIONS ENGINEER 07/16/2024 3:51 PM COMPLETIONS ENGINEER Gerber Bah MD LAB - CHEMISTRY ORDERABLES Performing Organization Address City/[facility]/ZIP Co de Phone Number [facility] [address] [place] [address] * LUPUS ANTICOAGULANT PANEL (07/16/2024 3:37 PM COMPLETIONS ENGINEER) APTT 27.4 23.0 - 38.4 Seconds 07/19/2024 10:07 AM [facility] PT 12.9 12.1 - 14.8 Seconds 07/19/2024 10:07 AM [facility] INR 1.0 See Comment 07/19/2024 10:07 AM [facility] [place] Buffer 46.2 Seconds 025 10:07 AM [facility] [place] Phospholipid 40.4 Seconds 07/19/2024 10:07 AM [facility] [place] Delta 5.8 <8.0 Seconds 07/19/2024 10:07 AM [facility] Interpretation [place] Negative 07/19/2024 10:07 AM [facility] Comment:Up to 15-20% of yoel ents [...] Unknown Venipuncture / Unknown 07/16/2024 3:37 PM COMPLETIONS ENGINEER 07/16/2024 3:51 PM COMPLETIONS ENGINEER Gerber Bah MD LAB - HEMATOLOG Y ORDERABLES [address] [address], [facility] [phone] * CARDIOLIPIN ANTIBODY IGG/IGM PANEL (07/16/2024 3:37 PM COMPLETIONS ENGINEER) [facility] Cardiolipin Antibody IgG <9 0 - 14 GPL U/mL 07/18/2024 3:07 PM COMPLETIONS ENGINEER [facility] ([facility]) Comment: Negative: <15 Indeterminate: 15 - 20 Low-Med Positive: >20 - 80 High Positive: >80 Cardiolipin Antibody IgM <9 0 - 12 MPL U/mL 07/18/2024 3:07 PM COMPLETIONS ENGINEER [facility] ([facility]) Comment: Negative: <13 Indeterminate: 13 - 20 Low-Med Positive: >20 - 80 High Positive: >80 Blood BLOOD SPECIMEN / Unknown Venipuncture / Unknown 07/16/2024 3:37 PM COMPLETIONS ENGINEER 07/16/2024 3:51 PM COMPLETIONS ENGINEER Narrative [facility] ([facility]) - 07/18/2024 3:07 PM COMPLETIONS ENGINEER Performed at: [address] [place], [place] [id number] [place], [place] [id number] Assurance Specialist: Ad Harris PhD, Phone: [phone] Gerber Bah MD LAB - SEROLOGY ORDERABLES [facility] ([facility]) [address] [place] [address] * BETA-2 GLYCOPROTEIN 1 ANTIBODY IGG/IGM PANEL (07/16/2024 3:37 PM COMPLETIONS ENGINEER) [facility] Beta-2 Glycoprotein I Antibody IgG <9 0 - 20 GPI IgG units 07/18/2024 2:08 PM COMPLETIONS ENGINEER [facility] ([facility]) Comment: The reference interval reflects a 3SD or 99th percentile interval, which is thought to represent a potentially clinically significant result in accordance with the International Consensus Statement on the classification criteria for definitive antiphospholipid syndrome (APS). J Thromb Haem 2006;4:295-306. Beta-2 Glycoprotein I Antibody IgM <9 0 - 32 GPI IgM units 07/18/2024 2:08 PM COMPLETIONS ENGINEER [facility] ([facility]) Comment: The reference interval reflects a 3SD or 99th percentile interval, which is thought to represent a potentially clinically significant result in accordance with the International Consensus Statement on the classification criteria for definitive antiphospholipid syndrome (APS). J Thromb Haem 2006;4:295-306. Blood BLOOD SPECIMEN / Unknown Venipuncture / Unknown 07/16/2024 3:37 PM COMPLETIONS ENGINEER 07/16/2024 3:51 PM COMPLETIONS ENGINEER Narrative [facility] ([facility]) - 07/18/2024 2:08 PM COMPLETIONS ENGINEER Performed at: - [address] [id number] Assurance Specialist: Ad Harris PhD, Phone: [phone] Gerber Bah MD LAB - CHEMISTRY ORDERABLES [facility] ([facility]) [address] [place] [address] * SONOGRAM - COMPLETE (07/16/2024 1:23 PM COMPLETIONS ENGINEER) [facility] Linked Results Indication ======== Dating/NT Abnormal NIPT [...] discuss plan of care. Coding ====== Procedures 85537: 1st Trimester [facility] [place] [employer] PACS Anatomical Region Laterality Modality Other 07/16/2024 1:23 PM COMPLETIONS ENGINEER Augusta Leggett MD [facility] ORDERABLES * (ABNORMAL) HEMOGLOBIN A1C - POCT (IP) THOMAS (02/02/2017 2:46 PM CDT) Only the most recent of3 resultswithin the time period is included. Hemoglobin A1c POCT 6.8(A) 3.4 - 6.1 % [facility] QC Verified Yes Yes [facility] PO [facility] TESTING Blood BLOOD SPECIMEN / Unknown 02/02/2017 2:46 PM CDT Deon Monteiro MD LAB - POINT OF CARE ORDERABLES Performing Organization Address [facility] Co de Phone Number [facility] [address] [place], [place] [address] [phone] * (ABNORMAL) MICROALB/CREAT RATIO URINE RANDOM PANEL (02/02/2017 2:38 PM CDT) Only the most recent of2 resultswithin the time period is included. Creatinine Urine 103.98 mg/dL 02/03/20 17 4:18 PM CDT [facility] Microalbumin Urine 3.3(H) <1.7 mg/dL 02/02/2017 4:18 PM CDT [facility] Microalbumin/Crea tinine Ratio 32(H) <30 mg/g 02/02/2017 4:18 PM CDT [facility] Urine URINE SPECIMEN OBTAINED BY CLEAN CATCH PROCEDURE / Unknown Collection / Unknown 02/02/2017 2:38 PM CDT 02/02/2017 3:10 PM CDT Deon Monteiro MD LAB - URINE CHEMISTR Y ORDERABLES Performing Organization Address [facility] Co de Phone Number [facility] [address] [place] [address] * (ABNORMAL) COMPREHENSIVE METABOLIC PANEL (02/02/2017 2:38 PM CDT) Glucose 208(H) 70 - 105 mg/dL 02/02/2017 4:07 PM CDT [facility] Sodium 136 136 - 145 mmol/L 02/02/2017 4:07 PM CDT [facility] Potassium 4.0 3.5 - 5.1 mmol/L 02/02/2017 4:07 PM CDT [facility] Chloride 101 98 - 107 mmol/L 02/02/2017 4:07 PM CDT [facility] CO2 26 20 - 28 mmol/L 02/02/2017 4:07 PM CDT [facility] Calcium 9.75 9.08 - 10.48 mg/dL 02/02/2017 4:07 PM CDT [facility] Anion Gap 9 5 - 20 mmol/L 02/02/2017 4:07 PM [facility] BUN 14.0 5.3 - 18.7 mg/dL 02/02/2017 4:07 PM [facility] Creatinine 0.50(L) 0.61 - 1.07 mg/dL 02/02/2017 4:07 PM [facility] Alkaline Phosphatase 74(L) 100 - 390 U/L 02/02/2017 4:07 PM [facility] ALT 68(H) 8 - 65 U/L 02/02/2017 4:07 PM [facility] AST 48(H) 3 - 35 U/L 02/02/2017 4:07 PM [facility] Protein Total 8.1 6.3 - 8.2 gm/dL 02/02/2017 4:07 PM [facility] Albumin 4.5 3.3 - 4.9 gm/dL 02/02/2017 4:07 PM [facility] Bilirubin Total 0.3 0.3 - 1.2 mg/dL 02/02/2017 4:07 PM [facility] eGFR by MDRD mL/min/1. 73m2 02/02/2017 4:07 PM [facility] Comment: eGFR calculations are not performed for children under 18 years old. eGFR by MDRD mL/min/1. 73m2 02/02/2017 4:07 PM [facility] Comment: eGFR calculations are not performed for children under 18 years old. Blood BLOOD SPECIMEN / Unknown Venipuncture / Unknown 02/02/2017 2:38 PM CDT 02/02/2017 3:15 PM CDT Deon Monteiro MD LAB - CHEMISTRY [facility] Organization Address City/State/ZIP Co de Phone Number [facility] [place] [address] * (ABNORMAL) LIPID PROFILE (02/02/2017 2:38 PM CDT) Cholesterol 226(H) <170 mg/dL 02/02/2017 4:08 PM T [facility] Triglycerides 624(H) 46 - 227 mg/dL 02/02/2017 4:08 PM CDT [facility] HDL Cholesterol 35(L) >40 mg/dL 7 4:08 PM T [facility] LDL Calculated 66 <100 mg/dL 02/02/2017 4:08 PM T [facility] Comment: Unable to calculate LDL due to elevated Triglycerides, please consider ordering a Direct LDL. VLDL Calculated 125(H) 12 - 38 mg/dL 02/02/2017 4:08 PM T [facility] Comment: Unable to calculate LDL due to elevated Triglycerides, please consider ordering a Direct LDL. Chol HDL Ratio 6.5(H) <=5.0 02/02/2017 4:08 PM T [facility] Blood BLOOD SPECIMEN / Unknown Venipuncture / Unknown 02/02/2017 2:38 PM CDT 02/02/2017 3:15 PM CDT Narrative [facility] - 02/02/2017 4:08 PM CDT Lipid Profile Comment: Adult references ranges are the recommendation of the [place] [employer] , for those patients >18 years old. Cholestrol LDL Triglycerides HDL -- -- -- <40 Low <170 <100 <150 Desirable 170-199 130-159 150-199 Borderline High >200 160-189 200-499 >60 High Risk factor status for Coronary Artery Disease is necessary to place these lab findings in perspective. Note: This test is for fasting patients only. A non-fasting state may alter some of these results. Deon Monteiro MD LAB - CHEMISTRY [facility] Organization Address City/State/[facility] Co de Phone Number [facility] [place] [phone] * LAB RESULTS ORDER (08/08/2016 10:54 PM COMPLETIONS ENGINEER) Only the most recent of2 resultswithin the time period is included. Narrative 08/08/2016 10:54 PM COMPLETIONS ENGINEER Ordered by an unspecified provider. Scanned Document LAB - THERAPEUTIC DR LINO MONITORING ORDERABLES * IA-2 ANTIBODY (04/20/2016 2:20 PM COMPLETIONS ENGINEER) Insulinoma Associated 2 Antibody <1.0 U/mL 04/24/2016 12:05 AM COMPLETIONS ENGINEER [facility] ([facility]) Comment: Reference Range: <1.0 Negative > or = 1.0 Positive Blood BLOOD SPECIMEN / Unknown Lab Venipuncture / Unknown 04/20/2016 2:20 PM COMPLETIONS ENGINEER 04/20/2016 3:22 PM COMPLETIONS ENGINEER Narrative [facility] ([facility]) - 04/24/2016 12:05 AM COMPLETIONS ENGINEER Performed at: [facility] [address] [place] [phone] Assurance Specialist: Silvestre Shelley MD, Phone: [phone] Deon Monteiro MD LAB - SEROLOGY ORDER ELIOT [facility] ([facility]) [address] [place] [address] * ISLET CELL ANTIBODY (04/20/2016 2:20 PM COMPLETIONS ENGINEER) Antipancreatic Islet Cells Negative Neg:<1:1 04/21/2016 4:[address] [facility] ([facility]) Blood BLOOD SPECIMEN / Unknown Lab Venipuncture / Unknown 04/20/2016 2:20 PM COMPLETIONS ENGINEER 04/20/2016 3:22 PM COMPLETIONS ENGINEER Narrative [facility] ([facility]) - 04/21/2016 4:23 PM COMPLETIONS ENGINEER Performed at: [address] [place] [id number] Assurance Specialist: Anthony Greco MD, Phone: [phone] Deon Monteiro MD LAB - SEROLOGY ORDER ELIOT [facility] ([facility]) [address] [place] [address] * (ABNORMAL) URINALYSIS ROUTINE AUTO (04/20/2016 2:20 PM COMPLETIONS ENGINEER) Color UA Yellow Straw, Yellow, Dark Yellow 04/20/2016 3:48 PM [facility] Clarity UA Clear 04/20/2016 3:48 PM COMPLETIONS ENGINEER [facility] Specific Mullan UA >=1.030 1.005 - 1.030 04/20/2016 3:48 PM [facility] pH UA 5.5 5.0 - 8.0 pH 04/20/2016 3:48 PM [facility] Protein UA Negative Negative 04/20/2016 3:48 PM [facility] Blood UA Negative Negative 04/20/2016 3:48 PM [facility] Leukocyte UA 1+(A) Negative 04/20/2016 3:48 PM [facility] Nitrite UA Negative Negative 04/20/2016 3:48 PM [facility] Glucose UA Negative Negative 04/20/2016 3:48 PM [facility] Ketone UA Negative Negative 04/20/2016 3:48 PM [facility] Bilirubin UA Negative Negative 04/20/2016 3:48 PM [facility] Urobilinogen UA 0.2 0.1 - 1.0 EU/dL 04/20/2016 3:48 PM [facility] Urine URINE SPECIMEN OBTAINED BY CLEAN CATCH PROCEDURE / Unknown Collection / Unknown 04/20/2016 2:20 PM COMPLETIONS ENGINEER 04/20/2016 2:37 PM COMPLETIONS ENGINEER Deon Monteiro MD LAB - URINALYSIS ORD ERABLES Performing Organization Address City/[facility] de Phone Number [facility] [place] [address] * (ABNORMAL) URINALYSIS MICROSCOPIC ONLY (04/20/2016 2:20 PM COMPLETIONS ENGINEER) RBC UA 2-5 0-2, 2-5 # /hpf 04/20/2016 5:28 PM [facility] WBC UA 20-50(A) 0-2, 2-5 # /hpf 04/20/2016 5:28 PM [facility] Bacteria UA 3+(A) None Seen, Trace 04/20/2016 5:28 PM [facility] Epithelial Cell UA 10-20(A) 0-2, 2-5 # /hpf 04/20/2016 5:28 PM [facility] Mucus UA 2+ 04/20/2016 5:28 PM [facility] Urine URINE SPECIMEN OBTAINED BY CLEAN CATCH PROCEDURE / Unknown Collection / Unknown 04/20/2016 2:20 PM COMPLETIONS ENGINEER 04/20/2016 2:37 PM COMPLETIONS ENGINEER Deon Monteiro MD LAB - URINALYSIS ORD ERABLES Performing Organization Address [facility]/ZIP Co de Phone Number [facility] [place] [address] * (ABNORMAL) C-PEPTIDE (04/20/2016 2:20 PM COMPLETIONS ENGINEER) [facility] C-Peptide 4.10(H) 0.78 - 1.89 ng/mL 04/20/2016 6:58 PM COMPLETIONS ENGINEER [facility] Blood BLOOD SPECIMEN / Unknown Lab Venipuncture / Unknown 04/20/2016 2:20 PM COMPLETIONS ENGINEER 04/20/2016 3:22 PM COMPLETIONS ENGINEER Deon Monteiro MD LAB - CHEMISTRY NICOLA HARTMAN Performing Organization Address [facility] Co de Phone Number [facility] [address] [place] [address] * (ABNORMAL) CULTURE URINE (04/20/2016 2:20 PM COMPLETIONS ENGINEER) [facility] Culture 50,000-100,000 CFU/mL Streptococcus agalactiae (Group B)(A) MIGUEL 04/22/2016 8:44 AM COMPLETIONS ENGINEER [facility] Urine URINE SPECIMEN OBTAINED BY CLEAN CATCH PROCEDURE / Unknown 04/20/2016 2:20 PM COMPLETIONS ENGINEER 04/20/2016 5:00 PM COMPLETIONS ENGINEER Narrative [facility] - 04/22/2016 8:44 AM COMPLETIONS ENGINEER Susceptibility testing of penicillin, other beta-lactam antibiotics, and vancomycin is not necessary for beta-hemolytic streptococci groups A,B,C and G because resistant strains have not been recognized. Deon Monteiro MD LAB - MICROBIOLOGY O RDERABLES Performing Organization Address City/[facility] Co de Phone Number [facility] [address] [place] [phone] * PERLA AUTO ANTIBODY (04/20/2016 2:20 PM COMPLETIONS ENGINEER) [facility] PERLA-65 Antibody <5.0 0.0 - 5.0 U/mL 04/22/2016 4:20 PM COMPLETIONS ENGINEER [facility] ([facility]) Blood BLOOD SPECIMEN / Unknown Lab Venipuncture / Unknown 04/20/2016 2:20 PM COMPLETIONS ENGINEER 04/20/2016 3:22 PM COMPLETIONS ENGINEER Narrative [facility] ([facility]) - 04/22/2016 4:20 PM COMPLETIONS ENGINEER Performed at: [address] [facility] [id number] [place], [place] [id number] Assurance Specialist: Anthony Greco MD, Phone: [phone] Deon Monteiro MD LAB - SEROLOGY ORDER ELIOT [facility] ([facility]) [address] [place] [address] * (ABNORMAL) BASIC METABOLIC PANEL (CALCIUM TOTAL) (04/20/2016 2:20 PM COMPLETIONS ENGINEER) Pathologist [facility] Glucose 150(H) 70 - 105 mg/dL 04/20/2016 4:51 PM [facility] Sodium 138 136 - 145 mmol/L 04/20/2016 4:51 PM [facility] Potassium 4.4 3.5 - 5.1 mmol/L 04/20/2016 4:51 PM [facility] Chloride 105 98 - 107 mmol/L 04/20/2016 4:51 PM [facility] CO2 19(L) 20 - 28 mmol/L 04/20/2016 4:51 PM [facility] Calcium 10.40 9.08 - 10.48 mg/dL 04/20/2016 4:51 PM [facility] Anion Gap 14 5 - 20 mmol/L 04/20/2016 4:51 PM [facility] BUN 19.7(H) 5.3 - 18.7 mg/dL 04/20/2016 4:51 PM [facility] Creatinine 0.53(L) 0.61 - 1.07 mg/dL 04/20/2016 4:51 PM [facility] eGFR by MDRD mL/min/1. 73m2 04/20/2016 4:51 PM [facility] Comment: eGFR calculations are not performed for children under 18 years old. eGFR by MDRD mL/min/1. 73m2 04/20/2016 4:51 PM [facility] Comment: eGFR calculations are not performed for children under 18 years old. Blood BLOOD SPECIMEN / Unknown Lab Venipuncture / Unknown 04/20/2016 2:20 PM COMPLETIONS ENGINEER 04/20/2016 3:19 PM COMPLETIONS ENGINEER Deon Monteiro MD LAB - CHEMISTRY NICOLA Cortes Organization Address City/State/ZIP Co de Phone Number [facility] [address] [place] [address] Care Teams Roving Can Tender Relationship Specialty Start Date End Date Gerber Betts DO [address] [place] [id number] PCP - General Family Medicine Geriatric Medicine 07/18/24
--- OUTSIDE RECORDS SUMMARY | 2024-07-22 19:47 | XMS_ITS | Referral Summary ---
Author Organization [facility] Address [address] [place] [address] Care Team Providers Care Parquet Floor Layer Name Role Phone Gerber Betts Kg LOGAN Primary Care Provider + Source Comments [facility],non-owned Affiliates and Associated Physician Practices is amultiple site organization consisting of ambulatory clinics and hospital sitesin [place], [place]. This disclosure is being madepursuant to the Care Everywhere program and may not contain all information available regarding this patient. Last updated 18.[facility] Encounters Date Type Department Care Team Description 07/18/2024 Travel 07/18/2024 12:16 PM WHEEL TUNER Anesthesia Event [facility] [address] [place] [address] Lamin Llanes MD 07/18/2024 12:05 PM WHEEL TUNER - 07/18/2024 1:02 PM WHEEL TUNER Surgery [facility] [address] [place] [address] Karla Zamudio MD SUCTION DILATION AND CURETTAGE 07/18/2024 9:32 AM WHEEL TUNER - 07/18/2024 3:47 PM WHEEL TUNER Hospital Encounter [facility] [address] [place] [address] Karla Zamudio MD Surgery General Discharge Disposition: Home or Self Care 07/17/2024 Patient Outreach [facility] MATERNAL/ EVALUATION UNIT [address] [place] [address] [address] [place] [address] Yazmin Blackmon RN Care Management (Received a referral for SDOH needs. US report states no cardiac activity and pt has a scheduled D&C tomorrow. Will close this referral. ) 07/16/2024 Travel 07/16/2024 11:31 AM WHEEL TUNER Hospital Encounter [facility] MATERNAL/ EVALUATION UNIT [address] [place] [address]. [address] [place] [address] Alphonse Quispe MD Discharge Disposition: Home or Self Care 07/16/2024 11:34 AM WHEEL TUNER - 07/16/2024 11:59 PM WHEEL TUNER Hospital Encounter [facility] MATERNAL/ EVALUATION UNIT [address] [place] [address]. [address] [place] [address] Kimmy Sanderson MD Discharge Disposition: Home or Self Care 07/16/2024 11:32 AM WHEEL TUNER Hospital Encounter [facility] MATERNAL/ EVALUATION UNIT [address] [place] [address]. [address] [place] [address] Alphonse Quispe MD Discharge Disposition: Home or Self Care 07/16/2024 11:33 AM WHEEL TUNER Hospital Encounter [facility] MATERNAL/ EVALUATION UNIT [address] [place] [address]. [address] [place] [address] Kimmy Sanderson MD Discharge Disposition: Home or Self Care 07/11/2024 Telephone [facility] MATERNAL/ EVALUATION UNIT [address] [place] [address]. [address] [place] [address] Radha Romero, internet marketing strategist from Last 3 Months Allergies Active Allergy Reactions Criticality Noted Date [...] long-term current use of insulin ([facility]) Use if blood sugar greater than 250 or in times of illness. 100 Strip 5 02/02/2017 Active Additional Information Patient not taking.Reported on 07/16/2024 MICROLET LANCETS MISCIndications: Controlled type 2 diabetes mellitus without complication, without long-term current use of insulin ([facility]) Use 1 Each as directed Use to test blood sugar 2 -3 times daily. 100 Each 11 02/02/2017 Active blood glucose ([facility]) test stripIndications :Controlled type 2 diabetes mellitus without complication, without long-term current use of insulin ([facility]) Use to test blood sugar 2-3 times [...] 36 mg/g (< 30) Jul 19, 2016 ([place], [place]): first morning voided urine microalbumin/creatinine: 23 ug/g (< 30) Apr 20, 2016 - spot urine microalbumin/creatinine: 36 mg/g (< 30) Jul 19, 2016 ([place], [place]): first morning voided urine microalbumin/creatinine: 23 ug/g (< 30) Last Assessment & Plan: ? Nonspecific vs early diabetic related microalbuminuria 1. Obtain first morning voided urine specimen for microalbumin/creatinine ratio (laboratory requisition given at the time of the office visit). 2. Expectant observation. 3. Return appointment in three months. Assessment & Plan (06/29/2016 12:53 PM WHEEL TUNER): ? Nonspecific vs early diabetic related microalbuminuria 1. Obtain first morning voided urine specimen for microalbumin/creatinine ratio (laboratory requisition given at the time of the office visit). 2. Expectant observation. 3. Return appointment in three months. Controlled type 2 diabetes m jose without complication, without long-term current use of insulin 04/21/2016 Overview (06/29/2016): Apr 15, 2016 - [facility], [address] [place], [place] [address] Na 143 mmol/L, K 4.4 mmol/L, Cl [...] months. Assessment & Plan (06/29/2016 12:48 PM WHEEL TUNER): Good glycemic control. 1. Metformin 1000 mg bid 2. Home glucose monitoring twice daily. 3. Daily physical exercise (60 minutes daily) to promote weight loss 4. Return appointment in three months. Assessment & Plan (04/21/2016 4:13 PM WHEEL TUNER): New onset, probably type II, diabetes mellitus. [...] sweets/fats Assessment & Plan (06/29/2016 12:45 PM WHEEL TUNER): 1. Dietary counseling provided 2. Fasting lipid profile (laboratory requisition given at the time of the office visit). .3 Return appointment in three months. Assessment & Plan (04/21/2016 4:13 PM WHEEL TUNER): ? Familial 1. Fasting lipid profile 2. [...] BURGOS) Assessment & Plan (06/29/2016 12:46 PM WHEEL TUNER): ? Nonspecific elevation vs evolving BURGOS 1. Repeat serum ALT level (laboratory requisition given at the time of the office visit). 3. Expectant observation. 3. Return appointment in three months. Assessment & Plan (04/21/2016 4:14 PM WHEEL TUNER): ? BURGOS 1. Repeat serum AST/ALT in one month. 2. Consider referral to Pediatric Gastroenterology Type 2 diabetes mellitus with polyneuropathy Overview (07/16/2024): Apr 15, 2016 - [facility], [address], [place] [address] Na 143 mmol/L, K 4.4 mmol/L, Cl [...] 2016 - Elevated blood sugar 04/20/2016 017 Immunizations Name Administration Dates Next Due DTaP [...] 10/04/2005, 4,10/10/2001,10/10,2000,2000 TDAP (7yrs+) 06/13/2023,12/03/2012 VARICELLA 12/26/2006,09/26/2006,04/12/2001 Social History Tobacco Use Types Packs/Day Years [...] medical care, and heating? Somewhat hard 07/16/2024 [facility] of Occupat ional Health - Occupational Stress [...] things needed for daily living? No 07/16/2024 [place] Depression Scale Answer Date Recorded [place] Depression Scale Total 11 07/16/2024 The thought [...] any time in the past 12 [facility], were you homeless or living in a jail (including now)? No 07/16/2024 Estimated Date of Delivery Comme nts Yes 01/26/2025 Based on last me nstrual period of 04/21/2024 Sex and Gender Information Value Date Recorded Sex Assigned at Not on file Gender Identity Not on file Sexual Orientation Not on file Last Filed Vital Signs Vital Sign Reading Time Taken Comments Blood Pressure 107/70 07/18/2024 2:55 PM WHEEL TUNER Pulse 90 07/18/2024 2:55 PM WHEEL TUNER Temperature 36.3 C (97.3 F) 07/18/2024 1:42 PM WHEEL TUNER Respiratory Rate 16 07/18/2024 2:55 PM WHEEL TUNER Oxygen Saturation 97% 07/18/2024 2:55 PM WHEEL TUNER Inhaled Oxygen Concentration - - Weight 86.2 kg (190 lb) 07/18/2024 10:04 AM WHEEL TUNER Height 162.6 cm (5' 4 ) 07/18/2024 10:04 AM WHEEL TUNER Body Mass Index 32.61 07/18/2024 10:04 AM WHEEL TUNER Plan of Treatment Upcoming Encounters Date Type Department Care Team (Late st Contact Info) Description 08/13/2024 12:40 PM CDT Appointment [facility] MATERNAL/ EVALUATION UNIT [address] [place] [address] [address] [place] [address] Procedures Procedure Name Priority Date/Time Associated Diagnosis Comments GLUCOSE - POINT OF CARE Routine 07/18/2024 1:06 PM WHEEL TUNER PATHOLOGY TISSUE EXAM (STL) Routine 07/18/2024 12:37 PM WHEEL TUNER Diagnosis unknown LARYNGEAL MASK AIRWAY Routine 07/18/2024 12:23 PM WHEEL TUNER WA SURG RX MISSED MISCARRIAGE,1ST TRI 07/18/2024 11:49 AM WHEEL TUNER Diagnosis unknown BLOOD TYPE VERIFICATION Routine 07/18/2024 10:25 AM WHEEL TUNER Pre-op testing TYPE + SCREEN PANEL BERONICA 07/18/2024 1 0:19 AM WHEEL TUNER Pre-op testing GLUCOSE - POINT OF CARE Routine 07/18/2024 10:18 AM WHEEL TUNER BETA-2 GLYCOPROTEIN 1 ANTIBODY IGG/IGM PANEL Routine 07/16/2024 3:37 PM WHEEL TUNER Recurrent loss without current CARDIOLIPIN ANTIBODY IGG/IGM PANEL Routine 07/16/2024 3:37 PM WHEEL TUNER Recurrent loss without current LUPUS ANTICOAGULANT PANEL Routine 07/16/2024 3:37 PM WHEEL TUNER Recurrent loss without current TSH REFLEX FREE T4 Routine 07/16/2024 3: 37 PM WHEEL TUNER Recurrent loss without current SONOGRAM - COMPLETE Routine 07/16/2024 1 :23 PM WHEEL TUNER HEMOGLOBIN A1C - POCT (IP) BEAKER Routine [...] - POINT OF CARE (07/18/2024 1:06 PM WHEEL TUNER) Only the most recent of2 resultswithin the time period is included. Glucose WB/POC 133(H) 70 - 99 mg/dL 07/20/2024 1:56 AM WHEEL TUNER [facility] Specimen Type Cap Fingerstick 2024 1:56 AM [facility] Blood BLOOD SPECIMEN / Unknown 07/18/2024 1:06 PM WHEEL TUNER 07/20/2024 1:56 AM WHEEL TUNER Karla Zamudio MD LAB - POINT OF CARE ORDERABLES [facility] [address] [place] [address] * PATHOLOGY TISSUE EXAM (STL) (07/18/2024 12:37 PM WHEEL TUNER) Case Report Surgical Pathology Report Case: [id number] Authorizing Provider: Karla Zamudio MD Collected: 07/18/2024 12:37 PM Ordering Location: [facility] Received: 07/18/2024 01:15 PM Pathologist: Kirt Billings MD Specimen: Products of Conception 07/19/2024 9:40 AM [facility] Final Diagnosis Uterine contents, dilation and curettage: Products of conception. 07/19/2024 9:40 AM [facility] Clinical History Missed 07/19/2024 9:40 AM [facility] Gross Description The specimen is identified with the patient's name and date of . Received in formalin, labeled specimen A, products of conception are multiple fragments of soft pink brasher tissue admixed with blood clot measuring 5 x 5 x 5 cm in aggregate. parts are not identified. Burring Machine Operator sections submitted in cassette [id number]. JULIO CESAR/DAVID 07/19/2024 9:40 AM [facility] Microscopic Description Sections show immature chorionic villi and decidua. 07/19/2024 9:40 AM [facility] Pathologist Location at [facility] 07/19/2024 9:40 AM [facility] Disclaimer All histochemical and/or immunohistochemical results are interpreted with controls that demonstrate appropriate staining reactions before reporting results. Note on use of immunocytochemistry reagents: This test was developed and its performance characteristic determined by [facility], Department of Laboratory Medicine. It has [...] be interpreted with caution. 07/19/2024 9:40 AM WHEEL TUNER [facility] Embedded Images 07/19/2024 9:40 AM WHEEL TUNER [facility] Pathology/Cytolo gy PRODUCTS OF CONCEPTION TISSUE SPECIMEN / Unknown 07/18/2024 12:37 PM WHEEL TUNER 07/18/2024 1:15 PM WHEEL TUNER Comment:Pre-op diagnosis: Diagnosis unknown [R69] Karla Zamudio MD LAB - PATHOLOGY/CYTO LOGY ORDERABLES Performing Organization Address City/State/[facility] Co de Phone Number [facility] [address] [place] [address] * LARYNGEAL MASK AIRWAY (07/18/2024 12:23 PM WHEEL TUNER) Narrative Alessio Fuentes APRN-CRNA - 07/18/2024 12:23 PM WHEEL TUNER Alessio Fuentes APRN-CRNA 07/18/2024 12:23 PM [facility]MA [...] * BLOOD TYPE VERIFICATION (07/18/2024 10:25 AM WHEEL TUNER) ABO Rh O POS 07/18/2024 10:55 AM WHEEL TUNER [facility] LAB Blood Bank BLOOD SPECIMEN / Unknown Venipuncture / Unknown 07/18/2024 10:25 AM WHEEL TUNER 07/18/2024 10:26 AM WHEEL TUNER Artemio Casanova MD LAB - BLOOD BANK ORD ERABLES Performing Organization Address City/[facility] Co de Phone Number [facility] [address] [place] [address] * TYPE + SCREEN PANEL (07/18/2024 10:19 AM WHEEL TUNER) ABO Rh O POS 07/18/2024 10:55 AM WHEEL TUNER [facility] LAB Comment:No history; collect retype. Antibody Screen NEG 10:55 AM WHEEL TUNER [facility] LAB Blood Bank BLOOD SPECIMEN / Unknown Venipuncture / Unknown 07/18/2024 10:19 AM WHEEL TUNER 07/18/2024 10:21 AM WHEEL TUNER Artemio Casanova MD LAB - BLOOD BANK ORD ERABLES Performing Organization Address [facility] Co de Phone Number [facility] B[facility]OD BANK LAB [address] [place] [address] * TSH REFLEX FREE T4 (07/16/2024 3:37 PM WHEEL TUNER) TSH 0.466 0.350 - 4.940 uIU/mL 07/16/2024 4:32 PM WHEEL TUNER [facility] Blood BLOOD SPECIMEN / Unknown Venipuncture / Unknown 07/16/2024 3:37 PM WHEEL TUNER 07/16/2024 3:51 PM WHEEL TUNER Gerber Bah MD LAB - CHEMISTRY ORDERABLES Performing Organization Address City/[facility] Co de Phone Number [facility] [address] [place] [address] * LUPUS ANTICOAGULANT PANEL (07/16/2024 3:37 PM WHEEL TUNER) APTT 27.4 23.0 - 38.4 Seconds 07/19/2024 10:07 AM WHEEL TUNER [facility] HOSPITAL PT 12.9 12.1 - 14.8 Seconds 07/19/2024 10:07 AM [facility] INR 1.0 See Comment 07/19/2024 10:07 AM [facility] [place] Buffer 46.2 Seconds 025 10:07 AM [facility] [place] Phospholipid 40.4 Seconds 07/19/2024 10:07 AM [facility] [place] Delta 5.8 <8.0 Seconds 07/19/2024 10:07 AM [facility] Interpretation [place] Negative 07/19/2024 10:07 AM [facility] Comment:Up to 15-20% of yoel ents [...] Unknown Venipuncture / Unknown 07/16/2024 3:37 PM WHEEL TUNER 07/16/2024 3:51 PM WHEEL TUNER Gerber Bah MD LAB - HEMATOLOG Y ORDERABLES Performing Organization Address City/State/[facility] Co de Phone Number [facility] [address] [place] [phone], [facility] [phone] * CARDIOLIPIN ANTIBODY IGG/IGM PANEL (07/16/2024 3:37 PM WHEEL TUNER) Cardiolipin Antibody IgG <9 0 - 14 GPL U/mL 07/18/2024 3:07 PM WHEEL TUNER [facility] ([facility]) Comment: Negative: <15 Indeterminate: 15 - 20 Low-Med Positive: >20 - 80 High Positive: >80 Cardiolipin Antibody IgM <9 0 - 12 MPL U/mL 07/18/2024 3:07 PM WHEEL TUNER [facility] ([facility]) Comment: Negative: <13 Indeterminate: 13 - 20 Low-Med Positive: >20 - 80 High Positive: >80 Blood BLOOD SPECIMEN / Unknown Venipuncture / Unknown 07/16/2024 3:37 PM WHEEL TUNER 07/16/2024 3:51 PM WHEEL TUNER Narrative [facility] ([facility]) - 07/18/2024 3:07 PM WHEEL TUNER Performed at: - [facility] [id number] Storage Battery Inspector And Tester: Ad Harris PhD, Phone: [phone] Gerber Bah MD LAB - SEROLOGY ORDERABLES Performing Organization Address [facility] Co de Phone Number [facility] ([facility]) [address] [place] [address] * BETA-2 GLYCOPROTEIN 1 ANTIBODY IGG/IGM PANEL (07/16/2024 3:37 PM WHEEL TUNER) [facility] Beta-2 Glycoprotein I Antibody IgG <9 0 - 20 GPI IgG units 07/18/2024 2:08 PM WHEEL TUNER [facility]) Comment: The reference interval reflects a 3SD or 99th percentile interval, which is thought to represent a potentially clinically significant result in accordance with the International Consensus Statement on the classification criteria for definitive antiphospholipid syndrome (APS). J Thromb Haem 2006;4:295-306. Beta-2 Glycoprotein I Antibody IgM <9 0 - 32 GPI IgM units 07/18/2024 2:08 PM WHEEL TUNER [facility] ([facility]) Comment: The reference interval reflects a 3SD or 99th percentile interval, which is thought to represent a potentially clinically significant result in accordance with the International Consensus Statement on the classification criteria for definitive antiphospholipid syndrome (APS). J Thromb Haem 2006;4:295-306. Blood BLOOD SPECIMEN / Unknown Venipuncture / Unknown 07/16/2024 3:37 PM WHEEL TUNER 07/16/2024 3:51 PM WHEEL TUNER Narrative [facility]) - 07/18/2024 2:08 PM WHEEL TUNER Performed at: [address] [id number] Storage Battery Inspector And Tester: Ad Harris PhD, Phone: [phone] Gerber Bah MD LAB - CHEMISTRY ORDERABLES [facility]) [address] [place] [address] * SONOGRAM - COMPLETE (07/16/2024 1:23 PM WHEEL TUNER) Linked Results Indication ======== Dating/NT Abnormal NIPT [...] discuss plan of care. Coding ====== Procedures 05194: 1st Trimester Musikki PACS Anatomical Region Laterality Modality Other 07/16/2024 1:23 PM WHEEL TUNER Augusta Leggett MD [facility] ORDERABLES * (ABNORMAL) HEMOGLOBIN A1C - POCT (IP) BEAKER (02/02/2017 2:46 PM CDT) Hemoglobin A1c POCT 6.8(A) 3.4 - 6.1 % [facility] POCT TESTING QC Verified Yes Yes [facility] PO CT TESTING Blood BLOOD SPECIMEN / Unknown 02/02/2017 2:46 PM CDT Deon Monteiro MD LAB - POINT OF CARE ORDERABLES Performing Organization Address [facility] Co de Phone Number [facility] POCT TESTING [address] [phone] * (ABNORMAL) MICROALB/CREAT RATIO URINE RANDOM PANEL (02/02/2017 2:38 PM CDT) Creatinine Urine 103.98 mg/dL 02/03/20 17 4:18 PM CDT [facility] Microalbumin Urine 3.3(H) <1.7 mg/dL 02/02/2017 4:18 PM CDT [facility] Microalbumin/Crea tinine Ratio 32(H) <30 mg/g 02/02/2017 4:18 PM CDT [facility] Urine URINE SPECIMEN OBTAINED BY CLEAN CATCH PROCEDURE / Unknown Collection / Unknown 02/02/2017 2:38 PM CDT 02/02/2017 3:10 PM CDT Deon Monteiro MD LAB - URINE CHEMISTR Y ORDERABLES Performing Organization Address City/[facility]/ZIP Co de Phone Number [facility] [address] [place] [address] * (ABNORMAL) COMPREHENSIVE METABOLIC PANEL (02/02/2017 2:38 PM CDT) Glucose 208(H) 70 - 105 mg/dL 02/02/2017 4:07 PM CDT [facility] Sodium 136 136 - 145 mmol/L 02/02/2017 4:07 PM [facility] Potassium 4.0 3.5 - 5.1 mmol/L 02/02/2017 4:07 PM [facility] Chloride 101 98 - 107 mmol/L 02/02/2017 4:07 PM [facility] CO2 26 20 - 28 mmol/L 02/02/2017 4:07 PM [facility] Calcium 9.75 9.08 - 10.48 mg/dL 02/02/2017 4:07 PM [facility] Anion Gap 9 5 - 20 mmol/L 02/02/2017 4:07 PM [facility] BUN 14.0 5.3 - 18.7 mg/dL 02/02/2017 4:07 PM [facility] Creatinine 0.50(L) 0.61 - 1.07 mg/dL 02/02/2017 4:07 PM [facility] Alkaline Phosphatase 74(L) 100 - 390 U/L 02/02/2017 4:07 PM [facility] ALT 68(H) 8 - 65 U/L 02/02/2017 4:07 PM [facility] AST 48(H) 3 - 35 U/L 02/02/2017 4:07 PM [facility] Protein Total 8.1 6.3 - 8.2 gm/dL 02/02/2017 4:07 PM [facility] Albumin 4.5 3.3 - 4.9 gm/dL 02/02/2017 4:07 PM [facility] Bilirubin Total 0.3 0.3 - 1.2 mg/dL 02/02/2017 4:07 PM [facility] eGFR by MDRD mL/min/1. 73m2 02/02/2017 4:07 PM [facility] Comment: eGFR calculations are not performed for children under 18 years old. eGFR by MDRD mL/min/1. 73m2 02/02/2017 4:07 PM [facility] Comment: eGFR calculations are not performed for children under 18 years old. Blood BLOOD SPECIMEN / Unknown Venipuncture / Unknown 02/02/2017 2:38 PM CDT 02/02/2017 3:15 PM T Deon Monteiro MD LAB - CHEMISTRY ORDE RABLES [facility] [address] [place] [address] from Last 3 Months or Most Recently Relevant to Health Maintenance Care Teams Parquet Floor Layer Relationship Specialty Start Date End Date Gerber Betts DO [address] [place] [id number] PCP - General Family Medicine Geriatric Medicine 07/18/24
--- OUTSIDE RECORDS SUMMARY | 2024-07-22 19:47 | XMS_ITS | Encounter Summary ---
Author Organization [facility] Address [address] [place] [address] Care Team Providers Care Doping Supervisor Name Role Phone Michael Colorado MD Primary Care Provider [phone] Gerber Betts DO Primary Care Provider + Reason for Visit * Reason Onset Date Comments Parent Return Call 04/25/2016 Mom returned your call from last week. Encounter Details Date Type Department Care Team ([facility] Contact Info) Description 04/25/2016 Telephone [facility] Pediatrics - Endocrinology [address] [place] [address] Deon Monteiro MD [address] [place] [phone] Parent Return Call (Mom returned your call from last week.) Social History Tobacco Use Types Packs/Day Years Used Date Smoking Tobacco: Never Sex and Gender Information Value Date Recorded Sex Assigned at Not on file Gender Identity Not on file Sexual Orientation Not on file documented as of this encounter Plan of Treatment Upcoming Encounters Date Type Department Care Team ([facility] Contact Info) Description 08/13/2024 12:40 PM CDT Appointment [facility] MATERNAL/ EVALUATION UNIT [address] [place] [address] [address] [place] [address] documented as of this encounter Visit Diagnoses Not on filedocumented in this encounter Care Teams Doping Supervisor Relationship Specialty Start Date End Date Michael Colorado MD [address] [place] [address] [address] [place] [address] PCP - General Pediatrics 04/20/16 07/17/24 Gerber Betts DO [address] [place] [phone] PCP - General Family Medicine Geriatric Medicine 07/18/24 documented as of this encounter
--- OUTSIDE RECORDS SUMMARY | 2024-07-22 19:47 | XMS_ITS | Clinical Summary ---
Author Organization [facility] Address [address] [place] [address] Care Team Providers Care Ancillary Services Manager Therapy Name Role Phone Gerber Betts Kg LOGAN Primary Care Provider + Allergies [...] tabletIndications: Type 2 diabetes mellitus with polyneuropathy ([facility]) Take 1 tablet daily for 2 weeks, then take 2 tablets daily there after 60 tablet 2 4 Active Active Problems Problem Noted Date Diagnosed Date Hidradenitis suppurativa 06/13/2023 Bipolar 1 disorder, depressed ([facility]) 06/13/2020 Urine test positive for microalbuminuria 017 Overview (06/13/2023): Apr 20, 2016 - spot urine microalbumin/creatinine: 36 mg/g (< 30) Jul 19, 2016 ([place], [place]): first morning voided urine microalbumin/creatinine: 23 ug/g (< 30) Last Assessment & Plan: ? Nonspecific vs early diabetic related microalbuminuria 1. Obtain first morning voided urine specimen for microalbumin/creatinine ratio (laboratory requisition given at the time of the office visit). 2. Expectant observation. 3. Return appointment in three months. Type 2 diabetes mellitus wit h polyneuropathy ([facility]) 04/21/2016 Overview (06/13/2023): Apr 15, 2016 - [facility], [address] [place], [place] [address] Na 143 mmol/L, K 4.4 mmol/L, Cl [...] mg/dL (< 130) Jul 19, 2016 - [facility] Cholesterol 151 mg/dL (140-199), triglycerides 235 [...] associat ed with type 2 diabetes mellitus ([facility]) 2016 Immunizations Name Administration Dates Next Due [...] Comments Blood Pressure 104/66 06/13/2023 8:52 AM TECHNICAL INSTRUCTOR COURSE DEVELOPER Pulse 66 06/13/2023 8:52 AM TECHNICAL INSTRUCTOR COURSE DEVELOPER Temperature 36.3 C (97.4 F) 06/13/2023 8:52 AM TECHNICAL INSTRUCTOR COURSE DEVELOPER Respiratory Rate 16 06/13/2023 8:52 AM TECHNICAL INSTRUCTOR COURSE DEVELOPER Oxygen Saturation 97% 06/13/2023 8:52 AM TECHNICAL INSTRUCTOR COURSE DEVELOPER Inhaled Oxygen Concentration - - Weight 87.3 kg (192 lb 6.4 oz) 06/13/2023 8:52 A M TECHNICAL INSTRUCTOR COURSE DEVELOPER Height 162.6 cm (5' 4 ) 06/13/2023 8:52 AM TECHNICAL INSTRUCTOR COURSE DEVELOPER Body Mass Index 33.03 06/13/2023 8:52 AM TECHNICAL INSTRUCTOR COURSE DEVELOPER Plan of Treatment Health Maintenance Due Date Last Done Comments Cervical Cancer Screening Pap Smear (Age 21 to 29) Every 3 Years 2000 Cervical Cancer Screening 2000 Kidney Health Evaluation 2000 Annual Physical 2003 Pneumococcal Vaccine: Pediatrics (0 to 5 Years) and At-Risk Patients (6 to 64 Years) (1 of 2 - PCV) 2006 07/30/2001, 2000, 2000, Additional history exists Chlamydia Screening Females ages 16-24 2016 Lipid Panel 02/02/2018 02/02/2017 Hepatitis C 2018 Meningococcal B Vaccine (2 of 2 - Bexsero SCDM 2-dose series) 07/20/2019 01/17/2019 Hemoglobin A1C 09/12/2023 06/13/2023 COVID-19 Vaccine ( - season) 2024 Influenza Adult (#1) 2024 06/13/2023, 03/21/2019, 04/12/2016, Additional history exists PHQ-2 ([facility]) 06/05/2024 06/13/2023 PHQ-2 ([place]) 06/13/2024 06/13/2023 Diabetes: Retinopathy Eye Exam 08/27/2025 08/28/2023 DTaP, [...] 06/13/2023 Type 2 diabetes mellitus with polyneuropathy ([facility]) from Last 3 Months or Most Recently Relevant to Health Maintenance Results * DIABETIC RETINOPATHY EXAM (NEGATIVE) (08/28/2023) [facility] Scanned SCANNING Final Resu lt Performing Organization Address [facility] Co de Phone Number HS ONBASE * HEMOGLOBIN, GLYCOSYLATED (06/13/2023) HGB A1C 10.5 % [facility] 06/13/2023 us Gerber Betts DO LABORATORY Final Re sult Performing Organization Address [facility]/ZIP Co de Phone Number [facility] [address] [place] [address], [place] from Last 3 Months or Most Recently Relevant to Health Maintenance Insurance [employer] Care Teams Ancillary Services Manager Therapy Relationship Specialty Start Date End Date Gerber Betts DO [address] [place] [id number] PCP - General FAMILY PRACTICE 06/13/23
[2024-07-22 20:06] VITALS: BP 156/88; PULSE 99; RESP 15; TEMP 36.7; O2SAT 100
[2024-07-22 20:19] LABS: Basophils Percent Auto 0.3 % (0.2-1.2); Eosinophils Absolute Auto 0.2 K/mm3 (0-0.3); Eosinophils Percent Auto 1.3 % (0-4.4); Hemoglobin 10.3 g/dL (12.0-15.0); Immature Granulocyte Percent A 0.8 % (0-0.5); Lymphocytes Absolute Auto 2.91 K/mm3 (0.9-3.2); Lymphocytes Percent Auto 24.3 % (18.3-44.2); Mean Corpuscular HGB Conc 34.3 g/dl (32-36); Mean Corpuscular Hemoglobin 28.1 pg (26-34); Mean Corpuscular Volume 81.7 fl (80-100); Mean Platelet Volume 11.3 fl (7.4-10.4); Monocytes Absolute Auto 0.7 K/mm3 (0.1-0.6); Monocytes Percent Auto 5.4 % (2.6-8.5); Neutrophils Absolute Auto 8.1 K/mm3 (1.3-6.7); Neutrophils Percent Auto 67.9 % (45.5-73.1); Platelet Count Result 299 k/mm3 (150-375); Red Blood Count 3.67 M/mm3 (4.2-5.4)
[2024-07-22 20:28] LABS: Alanine Aminotransferase 20 U/L (6-35); Albumin Level 4.2 g/dL (3.5-5.1); Alkaline Phosphatase 66 U/L (38-126); Anion Gap 15 mmol/L (4-12); Aspartate Amino Transferase 26 U/L (14-36); Bilirubin,Total 0.4 mg/dL (0.2-1.3); Blood Urea Nitrogen 10 mg/dL (7-17); Calcium 9.2 mg/dL (8.4-10.2); Carbon Dioxide 22 mmol/L (22-30); Chloride 101 mmol/L (98-107); Estimated CRCL calculation 179 ml/min; Estimated Glomerular Filt Rate > 60; Glucose 286 mg/dL (65-110); Potassium 4.1 mmol/L (3.4-5.0); Sodium 138 mmol/L (137-145)
[2024-07-22 20:30] LABS: INR 0.9; Partial Thromboplastin Time 23.7 Seconds (22.3-36.8); Prothrombin Time 12.7 Seconds (11.1-14.7)
[2024-07-22 20:46] LABS: Beta HCG Quantitative 660.67 mIU/ML
--- OUTSIDE RECORDS SUMMARY | 2024-07-23 01:58 | XMS_ITS | Patient Health Summary ---
Author Organization [facility] Address [address] [place] [address] Care Team Providers Care Digital Producer Name Role Phone Gerber Betts Kg LOGAN Primary Care Provider + Note from [facility],non-owned Affiliates and Associated Physician Practices is amultiple site organization consisting of ambulatory clinics and hospital sitesin [place], [place], [place] and [place]. This disclosure is being madepursuant to the Care Everywhere program and may not contain all information available regarding this patient. Last updated 18.[facility] Allergies * Codeine(Urticaria) -Medium Criticality * Morphine(Urticaria) [...] medical care, and heating? Somewhat hard 07/16/2024 [facility] - Occupational [...] things needed for daily living? No 07/16/2024 Grove Depression Scale Answer Date Recorded Grove Depression Scale Total 11 07/16/2024 The thought [...] any time in the past 12 m [facility], were you homeless or living in a [facility] (including now)? No 07/16/2024 Estimated Date of Delivery Comme nts Yes 01/26/2025 Based on last me nstrual period of 04/21/2024 Sex and Gender Information Value Date Recorded Sex Assigned at Not on file Gender Identity Not on file Sexual Orientation Not on file Last Filed Vital Signs Vital Sign Reading Time Taken Comments Blood Pressure 107/70 07/18/2024 2:55 PM [employer] Pulse 90 07/18/2024 2:55 PM [employer] Temperature 36.3 C (97.3 F) 07/18/2024 1:42 PM [employer] Respiratory Rate 16 07/18/2024 2:55 PM [employer] Oxygen Saturation 97% 07/18/2024 2:55 PM [employer] Inhaled Oxygen Concentration - - Weight 86.2 kg (190 lb) 07/18/2024 10:04 AM [employer] Height 162.6 cm (5' 4 ) 07/18/2024 10:04 AM [employer] Body Mass Index 32.61 07/18/2024 10:04 AM [employer] Procedures * CARDIAC RHYTHM STRIP ORDER(Performed 07/22/2024) * GLUCOSE - POINT OF CARE(Performed 07/18/2024) * PATHOLOGY TISSUE EXAM (STL)(Performed 07/18/2024) Performed for Diagnosis unknown * LARYNGEAL MASK AIRWAY(Performed 07/18/2024) * OK SURG RX MISSED MISCARRIAGE,1ST TRI(Performed 07/18/2024) Performed [...] 07/16/2024) * HEMOGLOBIN A1C - POCT (IP) BEAKER(Performed 02/02/2017) Performed for Controlled type 2 diabetes mellitus without complication, without long-term current use of insulin ([facility]) * MICROALB/CREAT RATIO URINE RANDOM PANEL(Performed 02/02/2017) Performed for Controlled type 2 diabetes mellitus without complication, without long-term current use of insulin ([facility]) * LIPID PROFILE(Performed 02/02/2017) Performed for Controlled type 2 diabetes mellitus without complication, without long-term current use of insulin ([facility]) * COMPREHENSIVE METABOLIC PANEL(Performed 02/02/2017) Performed for Controlled type 2 diabetes mellitus without complication, without long-term current use of insulin ([facility]) * LAB RESULTS ORDER(Performed 08/08/2016) * HEMOGLOBIN A1C - POCT (IP) BEAKER(Performed 06/28/2016) Performed for Controlled diabetes mellitus type 1 without complications ([facility]) * LAB RESULTS ORDER(Performed 04/27/2016) * URINE [...] Performed for Elevated blood sugar Results * CARDIAC RHYTHM STRIP ORDER (07/22/2024 10:40 PM [employer]) Narrative 07/22/2024 10:40 PM [employer] Ordered by an unspecified provider. Scanned Document CARDIAC SERVICES ORD ERABLES * (ABNORMAL) GLUCOSE - POINT OF CARE (07/18/2024 1:06 PM [employer]) Only the most recent of2 resultswithin the time period is included. Glucose WB/POC 133(H) 70 - 99 mg/dL 07/20/2024 1:56 AM [employer] [facility] Specimen Type Cap Fingerstick 2024 1:56 AM [employer] [facility] Blood BLOOD SPECIMEN / Unknown 07/18/2024 1:06 PM [employer] 07/20/2024 1:56 AM [employer] Karla Zamudio MD LAB - POINT OF CARE ORDERABLES [facility] [address] [place] [address] * PATHOLOGY TISSUE EXAM (STL) (07/18/2024 12:37 PM [employer]) Case Report Surgical Pathology Report Case: [id number] Authorizing Provider: Karla Zamudio MD Collected: 07/18/2024 12:37 PM Ordering Location: [facility] Received: 07/18/2024 01:15 PM Pathologist: Kirt Billings MD Specimen: Products of Conception 07/19/2024 9:40 AM [facility] Final Diagnosis Uterine contents, dilation and curettage: Products of conception. 07/19/2024 9:40 AM [facility] Clinical History Missed 07/19/2024 9:40 AM [facility] Gross Description The specimen is identified with the patient's name and date of . Received in formalin, labeled specimen A, products of conception are multiple fragments of soft pink brasher tissue admixed with blood clot measuring 5 x 5 x 5 cm in aggregate. parts are not identified. Biomedical Engineering Professor sections submitted in cassette [id number]. JULIO CESAR/DAVID 07/19/2024 9:40 AM [facility] Microscopic Description Sections show immature chorionic villi and decidua. 07/19/2024 9:40 AM [facility] Pathologist Location at [facility] 07/19/2024 9:40 AM [facility] Disclaimer All histochemical and/or immunohistochemical results are interpreted with controls that demonstrate appropriate staining reactions before reporting results. Note on use of immunocytochemistry reagents: This test was developed and its performance characteristic determined by [facility], Department of Laboratory Medicine. It has [...] be interpreted with caution. 07/19/2024 9:40 AM [employer] [facility] Embedded Images 07/19/2024 9:40 AM [employer] [facility] Pathology/Cytolo gy PRODUCTS OF CONCEPTION TISSUE SPECIMEN / Unknown 07/18/2024 12:37 PM [employer] 07/18/2024 1:15 PM [employer] Comment:Pre-op diagnosis: Diagnosis unknown [R69] Karla Zamudio MD LAB - PATHOLOGY/CYTO LOGY ORDERABLES Performing Organization Address City/[facility]/ZIP Co de Phone Number [facility] [address] [place] [phone] * LARYNGEAL MASK AIRWAY (07/18/2024 12:23 PM [employer]) Narrative Alessio Fuentes APRN-CRNA - 07/18/2024 12:23 PM [employer] Alessio Fuentes APRN-CRNA 07/18/2024 12:23 PM [facility] [...] * BLOOD TYPE VERIFICATION (07/18/2024 10:25 AM [employer]) ABO Rh O POS 07/18/2024 10:55 AM [employer] [facility] Blood Bank BLOOD SPECIMEN / Unknown Venipuncture / Unknown 07/18/2024 10:25 AM [employer] 07/18/2024 10:26 AM [employer] Artemio Casanova MD LAB - BLOOD BANK ORD ERABLES Performing Organization Address City/[facility]/ZIP Co de Phone Number [facility] [address] [place] [address] * TYPE + SCREEN PANEL (07/18/2024 10:19 AM [employer]) ABO Rh O POS 07/18/2024 10:55 AM [facility] Comment:No history; collect retype. Antibody Screen NEG 10:55 AM [facility] Blood Bank BLOOD SPECIMEN / Unknown Venipuncture / Unknown 07/18/2024 10:19 AM [employer] 07/18/2024 10:21 AM [employer] Artemio Casanova MD LAB - BLOOD BANK ORD ERABLES [facility] [address] [place] [address] * TSH REFLEX FREE T4 (07/16/2024 3:37 PM [employer]) TSH 0.466 0.350 - 4.940 uIU/mL 07/16/2024 4:32 PM [employer] [facility] Blood BLOOD SPECIMEN / Unknown Venipuncture / Unknown 07/16/2024 3:37 PM [employer] 07/16/2024 3:51 PM [employer] Gerber Bah MD LAB - CHEMISTRY ORDERABLES [facility] [address] [place] [address] * LUPUS ANTICOAGULANT PANEL (07/16/2024 3:37 PM [employer]) APTT 27.4 23.0 - 38.4 Seconds 07/19/2024 10:07 AM [facility] PT 12.9 12.1 - 14.8 Seconds 07/19/2024 10:07 AM [facility] INR 1.0 See Comment 07/19/2024 10:07 AM [facility] [place] Buffer 46.2 Seconds 025 10:07 AM [facility] [place] Phospholipid 40.4 Seconds 07/19/2024 10:07 AM [facility] [place] Delta 5.8 <8.0 Seconds 07/19/2024 10:07 AM [facility] Interpretation [place] Negative 07/19/2024 10:07 AM [facility] Comment:Up to 15-20% of yoel ents [...] Unknown Venipuncture / Unknown 07/16/2024 3:37 PM [employer] 07/16/2024 3:51 PM [employer] Gerber Bah MD LAB - HEMATOLOG Y ORDERABLES Performing Organization Address City/State/[facility] Co de Phone Number [facility] [address] [place] [phone], [facility] [phone] * CARDIOLIPIN ANTIBODY IGG/IGM PANEL (07/16/2024 3:37 PM [employer]) [facility] Cardiolipin Antibody IgG <9 0 - 14 GPL U/mL 07/18/2024 3:07 PM [employer] [facility] ([facility]) Comment: Negative: <15 Indeterminate: 15 - 20 Low-Med Positive: >20 - 80 High Positive: >80 Cardiolipin Antibody IgM <9 0 - 12 MPL U/mL 07/18/2024 3:07 PM [employer] [facility] ([facility]) Comment: Negative: <13 Indeterminate: 13 - 20 Low-Med Positive: >20 - 80 High Positive: >80 Blood BLOOD SPECIMEN / Unknown Venipuncture / Unknown 07/16/2024 3:37 PM [employer] 07/16/2024 3:51 PM [employer] Narrative [facility] ([facility]) - 07/18/2024 3:07 PM [employer] Performed at: 01 - [address] [id number] [employer] Pow[employer] Mixer: Ad Harris PhD, Phone: [phone] Gerber Bah MD LAB - SEROLOGY ORDERABLES Performing Organization Address City/[facility]/ZIP Co de Phone Number [facility] ([facility]) [address] [place] [address] * BETA-2 GLYCOPROTEIN 1 ANTIBODY IGG/IGM PANEL (07/16/2024 3:37 PM [employer]) [facility] Beta-2 Glycoprotein I Antibody IgG <9 0 - 20 GPI IgG units 07/18/2024 2:08 PM [employer] [facility] ([facility]) Comment: The reference interval reflects a 3SD or 99th percentile interval, which is thought to represent a potentially clinically significant result in accordance with the International Consensus Statement on the classification criteria for definitive antiphospholipid syndrome (APS). J Thromb Haem 2006;4:295-306. Beta-2 Glycoprotein I Antibody IgM <9 0 - 32 GPI IgM units 07/18/2024 2:08 PM [employer] [facility] Comment: The reference interval reflects a 3SD or 99th percentile interval, which is thought to represent a potentially clinically significant result in accordance with the International Consensus Statement on the classification criteria for definitive antiphospholipid syndrome (APS). J Thromb Haem 2006;4:295-306. Blood BLOOD SPECIMEN / Unknown Venipuncture / Unknown 07/16/2024 3:37 PM [employer] 07/16/2024 3:51 PM [employer] Narrative [facility] ([facility]) - 07/18/2024 2:08 PM [employer] Performed at: - [address] [id number] [employer] Mixer: Ad Harris PhD, Phone: [phone] Gerber Bah MD LAB - CHEMISTRY ORDERABLES Performing Organization Address City/[facility]/ZIP Co de Phone Number [facility] ([facility]) [address] [place] [address] * SONOGRAM - COMPLETE (07/16/2024 1:23 PM [employer]) [facility] Linked Results Indication ======== Dating/NT Abnormal NIPT [...] discuss plan of care. Coding ====== Procedures 31015: 1st Trimester Tripcover PACS Anatomical Region Laterality Modality Other 07/16/2024 1:23 PM [employer] Augusta Leggett MD [facility] ORDERABLES * (ABNORMAL) HEMOGLOBIN A1C - [...] POINT OF CARE ORDERABLES Performing Organization Address [facility] de Phone Number [facility] POCT TESTING [address] [place], [place] [id number] [place] [address] * (ABNORMAL) MICROALB/CREAT RATIO URINE RANDOM PANEL (02/02/2017 2:38 PM CDT) Only the most recent of2 resultswithin the time period is included. Creatinine Urine 103.98 mg/dL 02/03/20 17 4:18 PM CDT [facility] Microalbumin Urine 3.3(H) <1.7 mg/dL 02/02/2017 4:18 PM CDT [facility] Microalbumin/Crea tinine Ratio 32(H) <30 mg/g 02/02/2017 4:18 PM T [facility] Urine URINE SPECIMEN OBTAINED BY CLEAN CATCH PROCEDURE / Unknown Collection / Unknown 02/02/2017 2:38 PM CDT 02/02/2017 3:10 PM CDT Deon Monteiro MD LAB - URINE CHEMISTR Y ORDERABLES Performing Organization Address [facility] de Phone Number [facility] [address] [place] [address] * (ABNORMAL) COMPREHENSIVE METABOLIC PANEL (02/02/2017 2:38 PM CDT) Glucose 208(H) 70 - 105 mg/dL 02/02/2017 4:07 PM CDT [facility] Sodium 136 136 - 145 mmol/L 02/02/2017 4:07 PM CDT [facility] Potassium 4.0 3.5 - 5.1 mmol/L 02/02/2017 4:07 PM [facility] Chloride 101 98 - 107 mmol/L 02/02/2017 4:07 PM [facility] CO2 26 20 - 28 mmol/L 02/02/2017 4:07 PM [facility] Calcium 9.75 9.08 - 10.48 mg/dL 02/02/2017 4:07 PM [facility] Anion Gap 9 5 - 20 mmol/L 02/02/2017 4:07 PM [facility] BUN 14.0 5.3 - 18.7 mg/dL 02/02/2017 4:07 PM [facility] Creatinine 0.50(L) 0.61 - 1.07 mg/dL 02/02/2017 4:07 PM [facility] Alkaline Phosphatase 74(L) 100 - 390 U/L 02/02/2017 4:07 PM [facility] ALT 68(H) 8 - 65 U/L 02/02/2017 4:07 PM [facility] AST 48(H) 3 - 35 U/L 02/02/2017 4:07 PM [facility] Protein Total 8.1 6.3 - 8.2 gm/dL 02/02/2017 4:07 PM [facility] Albumin 4.5 3.3 - 4.9 gm/dL 02/02/2017 4:07 PM [facility] Bilirubin Total 0.3 0.3 - 1.2 mg/dL 02/02/2017 4:07 PM [facility] eGFR by MDRD mL/min/1. 73m2 02/02/2017 4:07 PM [facility] Comment: eGFR calculations are not performed for children under 18 years old. eGFR by MDRD mL/min/1. 73m2 02/02/2017 4:07 PM [facility] Comment: eGFR calculations are not performed for children under 18 years old. Blood BLOOD SPECIMEN / Unknown Venipuncture / Unknown 02/02/2017 2:38 PM CDT 02/02/2017 3:15 PM T Deon Monteiro MD LAB - CHEMISTRY NICOLA HARTMAN [facility] Organization Address City/State/ZIP Co de Phone Number [facility] [address] [place] [address] * (ABNORMAL) LIPID PROFILE (02/02/2017 [...] [facility] - 02/02/2017 4:08 PM T Lipid Profile Comment: Adult references ranges are the recommendation of the [employer] , for those patients >18 [...] Monteiro MD LAB - CHEMISTRY NICOLA HARTMAN [facility] Organization Address City/State/ZIP Co de Phone Number [facility] [address] [place], [place] [phone] * LAB RESULTS ORDER (08/08/2016 10:54 PM [employer]) Only the most recent of2 resultswithin the time period is included. Narrative 08/08/2016 10:54 PM [employer] Ordered by an unspecified provider. Scanned Document LAB - THERAPEUTIC DR LINO MONITORING ORDERABLES * IA-2 ANTIBODY (04/20/2016 2:20 PM [employer]) Pathologist [facility] Insulinoma Associated 2 Antibody <1.0 U/mL 04/24/2016 12:05 AM [employer] [facility] ([facility]) Comment: Reference Range: <1.0 Negative > or = 1.0 Positive Blood BLOOD SPECIMEN / Unknown Lab Venipuncture / Unknown 04/20/2016 2:20 PM [employer] 04/20/2016 3:22 PM [employer]CH[employer] Narrative [facility] ([facility]) - 04/24/2016 12:05 AM [employer]CH[employer] Performed at: [address] [place] [address] [place] [id number] [employer]er: Silvestre Shelley MD, Phone: [phone] Deon Monteiro MD LAB - SEROLOGY ORDER ELIOT Performing Organization Address City/[facility] Co de Phone Number [facility]) [address] [place] [address] * ISLET CELL ANTIBODY (04/20/2016 2:20 PM [employer]CH[employer]) Pathologist [facility] Antipancreatic Islet Cells Negative Neg:<1:1 04/21/2016 4:23 PM [employer] [facility] ([facility]) Blood BLOOD SPECIMEN / Unknown Lab Venipuncture / Unknown 04/20/2016 2:20 PM [employer]CH[employer] 04/20/2016 3:22 PM [employer]CH[employer] Narrative [facility] ([facility]) - 04/21/2016 4:23 PM [employer] Performed at: [address] [place] [id number] [employer]er: Anthony Greco MD, Phone: [phone] Deon Monteiro MD LAB - SEROLOGY ORDER ELIOT Performing Organization Address City/[facility] Co de Phone Number [facility]) [address] [place] [address] * (ABNORMAL) URINALYSIS ROUTINE AUTO (04/20/2016 2:20 PM [employer]) Pathologist [facility] Color UA Yellow Straw, Yellow, Dark Yellow 04/20/2016 3:48 PM [facility] Clarity UA Clear 04/20/2016 3:48 PM [facility] Specific Gilman UA >=1.030 1.005 - 1.030 04/20/2016 3:48 PM [facility] pH UA 5.5 5.0 - 8.0 pH 04/20/2016 3:48 PM [facility] Protein UA Negative Negative 04/20/2016 3:48 PM [facility] Blood UA Negative Negative 04/20/2016 3:48 PM [facility] Leukocyte UA 1+(A) Negative 04/20/2016 3:48 PM [facility] Nitrite UA Negative Negative 04/20/2016 3:48 PM [facility] Glucose UA Negative Negative 04/20/2016 3:48 PM [facility] Ketone UA Negative Negative 04/20/2016 3:48 PM [facility] Bilirubin UA Negative Negative 04/20/2016 3:48 PM [facility] Urobilinogen UA 0.2 0.1 - 1.0 EU/dL 04/20/2016 3:48 PM [facility] Urine URINE SPECIMEN OBTAINED BY CLEAN CATCH PROCEDURE / Unknown Collection / Unknown 04/20/2016 2:20 PM [employer] 04/20/2016 2:37 PM [facility] Deon Monteiro MD LAB - URINALYSIS ORD ERABLES Performing Organization Address [facility]/State/[facility] Co de Phone Number [facility] [address] [place], [place] [phone] * (ABNORMAL) URINALYSIS MICROSCOPIC ONLY (04/20/2016 2:20 PM [employer]) RBC UA 2-5 0-2, 2-5 # /hpf 04/20/2016 5:28 PM [facility] WBC UA 20-50(A) 0-2, 2-5 # /hpf 04/20/2016 5:28 PM [facility] Bacteria UA 3+(A) None Seen, Trace 04/20/2016 5:28 PM [facility] Epithelial Cell UA 10-20(A) 0-2, 2-5 # /hpf 04/20/2016 5:28 PM [facility] Mucus UA 2+ 04/20/2016 5:28 PM [employer]CH[employer] [facility] Urine URINE SPECIMEN OBTAINED BY CLEAN CATCH PROCEDURE / Unknown Collection / Unknown 04/20/2016 2:20 PM [employer]CH[employer] 04/20/2016 2:37 PM [employer]CH[employer] Deon Monteiro MD LAB - URINALYSIS ORD ERABLES Performing Organization Address [facility]/ZIP Co de Phone Number [facility] [address] [place] [address] * (ABNORMAL) C-PEPTIDE (04/20/2016 2:20 PM [employer]CH[employer]IC) C-Peptide 4.10(H) 0.78 - 1.89 ng/mL 04/20/2016 6:58 PM [employer] MECH[employer]IC [facility] Blood BLOOD SPECIMEN / Unknown Lab Venipuncture / Unknown 04/20/2016 2:20 PM [employer]CH[employer]IC 04/20/2016 3:22 PM [employer]CH[employer] Deon Monteiro MD LAB - CHEMISTRY ORDE RABLES Performing Organization Address [facility] Co de Phone Number [facility] [address] [place] [address] * (ABNORMAL) CULTURE URINE (04/20/2016 2:20 PM [employer] MECHANIC) [facility] Culture 50,000-100,000 CFU/mL Streptococcus agalactiae (Group B)(A) MIGUEL 04/22/2016 8:44 AM [employer] MECHANIC [facility] Urine URINE SPECIMEN OBTAINED BY CLEAN CATCH PROCEDURE / Unknown 04/20/2016 2:20 PM [employer] MECH[employer]IC 04/20/2016 5:00 PM [employer] MECH[employer]IC Narrative [facility] - 04/22/2016 8:44 AM [employer]CH[employer]IC Susceptibility testing of penicillin, other beta-lactam antibiotics, and vancomycin is not necessary for beta-hemolytic streptococci groups A,B,C and G because resistant strains have not been recognized. Deon Monteiro MD LAB - MICROBIOLOGY O RDERABLES Performing Organization Address [facility] Co de Phone Number [facility] [address] [place], [address] [phone] * PERLA AUTO ANTIBODY (04/20/2016 2:20 PM [employer] MECH[employer]IC) [facility] PERLA-65 Antibody <5.0 0.0 - 5.0 U/mL 04/22/2016 4:20 PM [employer] MECH[employer]IC [facility] ([facility]) Blood BLOOD SPECIMEN / Unknown Lab Venipuncture / Unknown 04/20/2016 2:20 PM [employer] MECH[employer]IC 04/20/2016 3:22 PM [employer] MECH[employer]IC Narrative [facility] ([facility]) - 04/22/2016 4:20 PM [employer]CH[employer]IC Performed at: 01 - [address] [id number] [employer] Powder Mixer: Anthony Greco MD, Phone: [phone] Deon Monteiro MD LAB - SEROLOGY ORDER [facility] ([facility]) [address] [place] [address] * (ABNORMAL) BASIC METABOLIC PANEL (CALCIUM TOTAL) (04/20/2016 2:20 PM [employer]) [facility] Glucose 150(H) 70 - 105 mg/dL 04/20/2016 4:51 PM [facility] Sodium 138 136 - 145 mmol/L 04/20/2016 4:51 PM [facility] Potassium 4.4 3.5 - 5.1 mmol/L 04/20/2016 4:51 PM [facility] Chloride 105 98 - 107 mmol/L 04/20/2016 4:51 PM [facility] CO2 19(L) 20 - 28 mmol/L 04/20/2016 4:51 PM [facility] Calcium 10.40 9.08 - 10.48 mg/dL 04/20/2016 4:51 PM [facility] Anion Gap 14 5 - 20 mmol/L 04/20/2016 4:51 PM [facility] BUN 19.7(H) 5.3 - 18.7 mg/dL 04/20/2016 4:51 PM [facility] Creatinine 0.53(L) 0.61 - 1.07 mg/dL 04/20/2016 4:51 PM [facility] eGFR by MDRD mL/min/1. 73m2 04/20/2016 4:51 PM [facility] Comment: eGFR calculations are not performed for children under 18 years old. eGFR by MDRD mL/min/1. 73m2 04/20/2016 4:51 PM [employer] [facility] Comment: eGFR calculations are not performed for children under 18 years old. Blood BLOOD SPECIMEN / Unknown Lab Venipuncture / Unknown 04/20/2016 2:20 PM [employer] 04/20/2016 3:19 PM [employer] Deon Monteiro MD LAB - CHEMISTRY NICOLA HARTMAN Performing Organization Address City/State/[facility] Co de Phone Number [facility] [address] [place] [address] Care Teams Digital Producer Relationship Specialty Start Date End Date Gerber Betts DO [facility] [place] [address] PCP - General Family Medicine Geriatric Medicine 07/18/24
--- OUTSIDE RECORDS SUMMARY | 2024-07-23 01:58 | XMS_ITS | Clinical Summary ---
Author Organization [facility] Address [address] [place] [address] Care Team Providers Care Systems Development Consultant Name Role Phone Gerber Betts Kg LOGAN [...] tabletIndications: Type 2 diabetes mellitus with polyneuropathy ([facility]) Take 1 tablet daily for 2 weeks, then take 2 tablets daily there after 60 tablet 2 4 Active Active Problems Problem Noted Date Diagnosed Date Hidradenitis suppurativa 06/13/2023 Bipolar 1 disorder, depressed ([facility]) 06/13/2020 Urine test positive for microalbuminuria 017 Overview (06/13/2023): Apr 20, 2016 - spot urine microalbumin/creatinine: 36 mg/g (< 30) Jul 19, 2016 ([place], [place]): first morning voided urine microalbumin/creatinine: 23 ug/g (< 30) Last Assessment & Plan: ? Nonspecific vs early diabetic related microalbuminuria 1. Obtain first morning voided urine specimen for microalbumin/creatinine ratio (laboratory requisition given at the time of the office visit). 2. Expectant observation. 3. Return appointment in three months. Type 2 diabetes mellitus wit h polyneuropathy ([facility]) 04/21/2016 Overview (06/13/2023): Apr 15, 2016 - [facility], [address] [place], [place] [address] Na 143 mmol/L, K 4.4 mmol/L, Cl [...] 130) Jul 19, 2016 - [facility] Cholesterol 151 mg/dL (140-199), triglycerides [...] associat ed with type 2 diabetes mellitus ([facility]) 2016 Immunizations Name Administration Dates Next Due [...] Comments Blood Pressure 104/66 06/13/2023 8:52 AM OPERATOR SUPPL[employer] Pulse 66 06/13/2023 8:52 AM OPERATOR SUP[employer] Temperature 36.3 C (97.4 F) 06/13/2023 8:52 AM OPERATOR SUPPLY Respiratory Rate 16 06/13/2023 8:52 AM OPERATOR SUPPLY Oxygen Saturation 97% 06/13/2023 8:52 AM OPERATOR SUPPLY Inhaled Oxygen Concentration - - Weight 87.3 kg (192 lb 6.4 oz) 06/13/2023 8:52 A M [employer] Height 162.6 cm (5' 4 ) 06/13/2023 8:52 AM OPERATOR SUP[employer] Body Mass Index 33.03 06/13/2023 8:52 AM OPERATOR SUPPLY Plan of Treatment Health Maintenance Due Date [...] 03/21/2019, 04/12/2016, Additional history exists PHQ-2 (Physician Lorena) 06/05/2024 06/13/2023 Diabetes: Retinopathy Eye Exam 08/27/2025 08/28/2023 [...] 06/13/2023 Type 2 diabetes mellitus with polyneuropathy ([facility]) from Last 3 Months or Most Recently Relevant to Health Maintenance Results * DIABETIC RETINOPATHY EXAM (NEGATIVE) (08/28/2023) [facility] Scanned SCANNING Final Resu lt Performing Organization Address City/[facility] Co de Phone Number [facility] ONBASE * HEMOGLOBIN, GLYCOSYLATED (06/13/2023) HGB A1C 10.5 % [facility] 06/13/2023 Gerber Betts DO LABORATORY Final Re sult Performing Organization Address [facility] Co de Phone Number [facility] [address] [place] [address], [place] from Last 3 Months or Most Recently Relevant to Health Maintenance Insurance [employer] Care Teams Systems Development Consultant Relationship Specialty Start Date End Date Gerber Betts DO [address] [place], [place] [id number] PCP - General FAMILY PRACTICE 06/13/23
--- OUTSIDE RECORDS SUMMARY | 2024-07-23 01:58 | XMS_ITS | Referral Summary ---
Author Organization [facility] Address [address] [place] [address] Care Team Providers Care Ag Equipment Field Service Technician Name Role Phone Gerber Betts Kg LOGAN Primary Care Provider + Source Comments [facility],non-owned Affiliates and Associated Physician Practices is amultiple site organization consisting of ambulatory clinics and hospital sitesin [place], [place], [place] and [place]. This disclosure is being madepursuant to the Care Everywhere program and may not contain all information available regarding this patient. Last updated 18.[facility] Encounters Date Type Department Care Team Description 07/18/2024 Travel 07/18/2024 12:16 PM STAFF DEVELOPER Anesthesia Event [facility] [address] [place] [address] Lamin Llanes MD 07/18/2024 12:05 PM STAFF DEVELOPER - 07/18/2024 1:02 PM STAFF DEVELOPER Surgery [facility] [address] [place] [address] Karla Zamudio MD SUCTION DILATION AND CURETTAGE 07/18/2024 9:32 AM STAFF DEVELOPER - 07/18/2024 3:47 PM STAFF DEVELOPER Hospital Encounter [facility] [address] [place] [address] Karla Zamudio MD Surgery General Discharge Disposition: Home or Self Care 07/17/2024 Patient Outreach [facility] UN[facility] [address] [place] [address] [address] [place] [address] Yazmin Blackmon RN Care Management (Received a referral for SDOH needs. US report states no cardiac activity and pt has a scheduled D&C tomorrow. Will close this referral. ) 07/16/2024 Travel 07/16/2024 11:31 AM STAFF DEVELOPER Hospital Encounter [facility] [address] [place] [address]. [address] [place] [address] Alphonse Quispe MD Discharge Disposition: Home or Self Care 07/16/2024 11:34 AM STAFF DEVELOPER - 07/16/2024 11:59 PM STAFF DEVELOPER Hospital Encounter [facility] [address] [place] [address]. [address] [place] [address] Kimmy Sanderson MD Discharge Disposition: Home or Self Care 07/16/2024 11:32 AM STAFF DEVELOPER Hospital Encounter [facility] UN[facility] [address] [place] [address]. [address] [place] [address] Alphonse Quispe MD Discharge Disposition: Home or Self Care 07/16/2024 11:33 AM STAFF DEVELOPER Hospital Encounter [facility]ATION UNIT [address] [place] [address]. [address] [place] [address] Kimmy Sanderson MD Discharge Disposition: Home or Self Care 07/11/2024 Telephone [facility] UN[facility] [address] [place] [address]. [address] [place] [address] Radha Romero, ground school instructor from Last 3 Months Allergies Active Allergy [...] complication, without long-term current use of insulin ([facility]) Use if blood sugar greater than 250 or in times of illness. 100 Strip 5 02/02/2017 Active Additional Information Patient not taking.Reported on 07/16/2024 MICROLET LANCETS MISCIndications: Controlled type 2 diabetes mellitus without complication, without long-term current use of insulin ([facility]) Use 1 Each as directed Use to test blood sugar 2 -3 times daily. 100 Each 11 02/02/2017 Active blood glucose (TRUETRACK TEST) test stripIndications :Controlled type 2 diabetes mellitus without complication, without long-term current use of insulin ([facility]) Use to test blood sugar 2-3 times [...] 36 mg/g (< 30) Jul 19, 2016 ([place], [place]): first morning voided urine microalbumin/creatinine: 23 ug/g (< 30) Apr 20, 2016 - spot urine microalbumin/creatinine: 36 mg/g (< 30) Jul 19, 2016 ([place], [place]): first morning voided urine microalbumin/creatinine: 23 ug/g (< 30) Last Assessment & Plan: ? Nonspecific vs early diabetic related microalbuminuria 1. Obtain first morning voided urine specimen for microalbumin/creatinine ratio (laboratory requisition given at the time of the office visit). 2. Expectant observation. 3. Return appointment in three months. Assessment & Plan (06/29/2016 12:53 PM STAFF DEVELOPER): ? Nonspecific vs early diabetic related microalbuminuria 1. Obtain first morning voided urine specimen for microalbumin/creatinine ratio (laboratory requisition given at the time of the office visit). 2. Expectant observation. 3. Return appointment in three months. Controlled type 2 diabetes m jose without complication, without long-term current use of insulin 04/21/2016 Overview (06/29/2016): Apr 15, 2016 - [facility], [address], [place] [address] Na 143 mmol/L, K 4.4 mmol/L, Cl [...] months. Assessment & Plan (06/29/2016 12:48 PM STAFF DEVELOPER): Good glycemic control. 1. Metformin 1000 mg bid 2. Home glucose monitoring twice daily. 3. Daily physical exercise (60 minutes daily) to promote weight loss 4. Return appointment in three months. Assessment & Plan (04/21/2016 4:13 PM STAFF DEVELOPER): New onset, probably type II, diabetes mellitus. [...] mg/dL (< 130) Jul 19, 2016 - [facility] Cholesterol 151 mg/dL (140-199), triglycerides 235 mg/dL (< 150), HDL- cholesterol 37 mg/dL (> 40), LDL-cholesterol 67 (< 130) cholesterol 261 mg/dL (100-170); triglyceride 925 mg/dL (140-199), HDL- cholesterol 41 mg/dL (< 150), LDL-cholesterol mg/dL (< 130) Jul 19, 2016 - [facility] Cholesterol 151 mg/dL (140-199), triglycerides 235 [...] sweets/fats Assessment & Plan (06/29/2016 12:45 PM STAFF DEVELOPER): 1. Dietary counseling provided 2. Fasting lipid profile (laboratory requisition given at the time of the office visit). .3 Return appointment in three months. Assessment & Plan (04/21/2016 4:13 PM STAFF DEVELOPER): ? Familial 1. Fasting lipid profile 2. [...] BURGOS) Assessment & Plan (06/29/2016 12:46 PM STAFF DEVELOPER): ? Nonspecific elevation vs evolving BURGOS 1. Repeat serum ALT level (laboratory requisition given at the time of the office visit). 3. Expectant observation. 3. Return appointment in three months. Assessment & Plan (04/21/2016 4:14 PM STAFF DEVELOPER): ? BURGOS 1. Repeat serum AST/ALT in one month. 2. Consider referral to Pediatric Gastroenterology Type 2 diabetes mellitus with polyneuropathy Overview (07/16/2024): Apr 15, 2016 - [facility], [address], [place] [address] Na 143 mmol/L, K 4.4 mmol/L, Cl [...] medical care, and heating? Somewhat hard 07/16/2024 [facility] [place] of Occupat ional Health - Occupational Stress [...] things needed for daily living? No 07/16/2024 [place] Depression Scale Answer Date Recorded [place] Depression Scale Total 11 07/16/2024 The thought [...] any time in the past 12 m [facility], were you homeless or living in a [...] Comments Blood Pressure 107/70 07/18/2024 2:55 PM STAFF DEVELOPER Pulse 90 07/18/2024 2:55 PM STAFF DEVELOPER Temperature 36.3 C (97.3 F) 07/18/2024 1:42 PM STAFF DEVELOPER Respiratory Rate 16 07/18/2024 2:55 PM STAFF DEVELOPER Oxygen Saturation 97% 07/18/2024 2:55 PM STAFF DEVELOPER Inhaled Oxygen Concentration - - Weight 86.2 kg (190 lb) 07/18/2024 10:04 AM STAFF DEVELOPER Height 162.6 cm (5' 4 ) 07/18/2024 10:04 AM STAFF DEVELOPER Body Mass Index 32.61 07/18/2024 10:04 AM STAFF DEVELOPER Plan of Treatment Upcoming Encounters Date Type Department Care Team (Late st Contact Info) Description 08/13/2024 12:40 PM CDT Appointment [facility] UN[facility] [address] [place] [address] [address] [place] [address] Procedures Procedure Name Priority Date/Time Associated Diagnosis Comments CARDIAC RHYTHM STRIP ORDER 07/22/2024 10:40 PM STAFF DEVELOPER GLUCOSE - POINT OF CARE Routine 07/18/2024 1:06 PM STAFF DEVELOPER PATHOLOGY TISSUE EXAM (STL) Routine 07/18/2024 12:37 PM STAFF DEVELOPER Diagnosis unknown LARYNGEAL MASK AIRWAY Routine 07/18/2024 12:23 PM STAFF DEVELOPER [place] SURG RX MISSED MISCARRIAGE,1ST TRI 07/18/2024 11:49 AM STAFF DEVELOPER Diagnosis unknown BLOOD TYPE VERIFICATION Routine 07/18/2024 10:25 AM STAFF DEVELOPER Pre-op testing TYPE + SCREEN PANEL BERONICA 07/18/2024 1 0:19 AM STAFF DEVELOPER Pre-op testing GLUCOSE - POINT OF CARE Routine 07/18/2024 10:18 AM STAFF DEVELOPER BETA-2 GLYCOPROTEIN 1 ANTIBODY IGG/IGM PANEL Routine 07/16/2024 3:37 PM STAFF DEVELOPER Recurrent loss without current CARDIOLIPIN ANTIBODY IGG/IGM PANEL Routine 07/16/2024 3:37 PM STAFF DEVELOPER Recurrent loss without current LUPUS ANTICOAGULANT PANEL Routine 07/16/2024 3:37 PM STAFF DEVELOPER Recurrent loss without current TSH REFLEX FREE T4 Routine 07/16/2024 3: 37 PM STAFF DEVELOPER Recurrent loss without current SONOGRAM - COMPLETE Routine 07/16/2024 1 :23 PM STAFF DEVELOPER HEMOGLOBIN A1C - POCT (IP) BEAKER Routine [...] Recently Relevant to Health Maintenance Results * CARDIAC RHYTHM STRIP ORDER (07/22/2024 10:40 PM STAFF DEVELOPER) Narrative 07/22/2024 10:40 PM STAFF DEVELOPER Ordered by an unspecified provider. Scanned Document CARDIAC SERVICES ORD ERABLES * (ABNORMAL) GLUCOSE - POINT OF CARE (07/18/2024 1:06 PM STAFF DEVELOPER) Only the most recent of2 resultswithin the time period is included. Glucose WB/POC 133(H) 70 - 99 mg/dL 07/20/2024 1:56 AM STAFF DEVELOPER [facility] Specimen Type Cap Fingerstick 2024 1:56 AM STAFF DEVELOPER [facility] Blood BLOOD SPECIMEN / Unknown 07/18/2024 1:06 PM STAFF DEVELOPER 07/20/2024 1:56 AM STAFF DEVELOPER Karla Zamudio MD LAB - POINT OF CARE ORDERABLES Performing Organization Address City/State/[facility] Co de Phone Number [facility] [address] [place] [address] * PATHOLOGY TISSUE EXAM (STL) (07/18/2024 12:37 PM STAFF DEVELOPER) Case Report Surgical Pathology Report Case: [id number] Authorizing Provider: Karla Zamudio MD Collected: 07/18/2024 12:37 PM Ordering Location: [facility] Received: 07/18/2024 01:15 PM Pathologist: Kirt [...] cm in aggregate. parts are not identified. Accounting Methods Analyst sections submitted in cassette A1-A3. JULIO CESAR/DAVID 07/19/2024 9:40 AM [facility] Microscopic Description Sections show immature chorionic villi and decidua. 07/19/2024 9:40 AM [facility] Pathologist Location at [facility] 07/19/2024 9:40 AM [facility] Disclaimer All histochemical and/or immunohistochemical results are interpreted with controls that demonstrate appropriate staining reactions before reporting results. Note on use of immunocytochemistry reagents: This test was developed and its performance characteristic determined by [facility], Department of Laboratory Medicine. It [...] be interpreted with caution. 07/19/2024 9:40 AM [facility] Embedded Images 07/19/2024 9:40 AM [facility] Pathology/Cytolo gy [employer]ODUCTS OF CON[employer]ION TISSUE SPECIMEN / Unknown 07/18/2024 12:37 PM STAFF DEVELOPER 07/18/2024 1:15 PM STAFF DEVELOPER Comment:Pre-op diagnosis: Diagnosis unknown [R69] Karla Zamudio MD LAB - PATHOLOGY/CYTO LOGY ORDERABLES Performing Organization Address [facility]/State/[facility] Co de Phone Number [facility] [address] [place] [address] * LARYNGEAL MASK AIRWAY (07/18/2024 12:23 PM STAFF DEVELOPER) Narrative Alessio Fuentes APRN-CRNA - 07/18/2024 12:23 PM STAFF DEVELOPER Alessio Fuentes APRN-CRNA 07/18/2024 12:23 PM [facility] [...] * BLOOD TYPE VERIFICATION (07/18/2024 10:25 AM STAFF DEVELOPER) ABO Rh O POS 07/18/2024 10:55 AM STAFF DEVELOPER [facility] LAB Blood Bank BLOOD SPECIMEN / Unknown Venipuncture / Unknown 07/18/2024 10:25 AM STAFF DEVELOPER 07/18/2024 10:26 AM STAFF DEVELOPER Artemio Casanova MD LAB - BLOOD BANK ORD ERABLES Performing Organization Address [facility] Co de Phone Number [facility] B[facility]OD [facility] [address] [place] [address] * TYPE + SCREEN PANEL (07/18/2024 10:19 AM STAFF DEVELOPER) ABO Rh O POS 07/18/2024 10:55 AM STAFF DEVELOPER [facility] Comment:No history; collect retype. Antibody Screen NEG 10:55 AM STAFF DEVELOPER [facility] LAB Blood Bank BLOOD SPECIMEN / Unknown Venipuncture / Unknown 07/18/2024 10:19 AM STAFF DEVELOPER 07/18/2024 10:21 AM STAFF DEVELOPER Artemio Casanova MD LAB - BLOOD BANK ORD ERABLES Performing Organization Address [facility] Co de Phone Number [facility] B[facility]OD [facility] [address] [place] [address] * TSH REFLEX FREE T4 (07/16/2024 3:37 PM STAFF DEVELOPER) TSH 0.466 0.350 - 4.940 uIU/mL 07/16/2024 4:32 PM STAFF DEVELOPER [facility] Blood BLOOD SPECIMEN / Unknown Venipuncture / Unknown 07/16/2024 3:37 PM STAFF DEVELOPER 07/16/2024 3:51 PM STAFF DEVELOPER Gerber Bah MD LAB - CHEMISTRY ORDERABLES [facility] [address] [place] [address] * LUPUS ANTICOAGULANT PANEL (07/16/2024 3:37 PM STAFF DEVELOPER) APTT 27.4 23.0 - 38.4 Seconds 07/19/2024 10:07 AM [facility] PT 12.9 12.1 - 14.8 Seconds 07/19/2024 10:07 AM [facility] INR 1.0 See Comment 07/19/2024 10:07 AM [facility] Buffer 46.2 Seconds 025 10:07 AM [facility] Phospholipid 40.4 Seconds 07/19/2024 10:07 AM [facility] Delta 5.8 <8.0 Seconds 07/19/2024 10:07 AM [facility] Interpretation [facility] Negative 07/19/2024 10:07 AM [facility] Comment:Up to 15-20% of yoel ents [...] Unknown Venipuncture / Unknown 07/16/2024 3:37 PM STAFF DEVELOPER 07/16/2024 3:51 PM STAFF DEVELOPER Gerber Bah MD LAB - HEMATOLOG Y ORDERABLES [facility] [address] [place] [id number] [phone] * CARDIOLIPIN ANTIBODY IGG/IGM PANEL (07/16/2024 3:37 PM STAFF DEVELOPER) Cardiolipin Antibody IgG <9 0 - 14 GPL U/mL 07/18/2024 3:07 PM STAFF DEVELOPER [facility] ([facility]) Comment: Negative: <15 Indeterminate: 15 - 20 Low-Med Positive: >20 - 80 High Positive: >80 Cardiolipin Antibody IgM <9 0 - 12 MPL U/mL 07/18/2024 3:07 PM STAFF DEVELOPER [facility] ([facility]) Comment: Negative: <13 Indeterminate: 13 - 20 Low-Med Positive: >20 - 80 High Positive: >80 Blood BLOOD SPECIMEN / Unknown Venipuncture / Unknown 07/16/2024 3:37 PM STAFF DEVELOPER 07/16/2024 3:51 PM STAFF DEVELOPER Narrative [facility] ([facility]) - 07/18/2024 3:07 PM STAFF DEVELOPER Performed at: [address] [place] [id number] Indexer: Ad Harrsi PhD, Phone: [phone] Gerber Bah MD LAB - SEROLOGY ORDERABLES [facility] ([facility]) [address] [place] [address] * BETA-2 GLYCOPROTEIN 1 ANTIBODY IGG/IGM PANEL (07/16/2024 3:37 PM STAFF DEVELOPER) [facility] Beta-2 Glycoprotein I Antibody IgG <9 0 - 20 GPI IgG units 07/18/2024 2:08 PM STAFF DEVELOPER [facility] ([facility]) Comment: The reference interval reflects a 3SD or 99th percentile interval, which is thought to represent a potentially clinically significant result in accordance with the International Consensus Statement on the classification criteria for definitive antiphospholipid syndrome (APS). J Thromb Haem 2006;4:295-306. Beta-2 Glycoprotein I Antibody IgM <9 0 - 32 GPI IgM units 07/18/2024 2:08 PM STAFF DEVELOPER [facility] ([facility]) Comment: The reference interval reflects a 3SD or 99th percentile interval, which is thought to represent a potentially clinically significant result in accordance with the International Consensus Statement on the classification criteria for definitive antiphospholipid syndrome (APS). J Thromb Haem 2006;4:295-306. Blood BLOOD SPECIMEN / Unknown Venipuncture / Unknown 07/16/2024 3:37 PM STAFF DEVELOPER 07/16/2024 3:51 PM STAFF DEVELOPER Narrative [facility] ([facility]) - 07/18/2024 2:08 PM STAFF DEVELOPER Performed at: 01 - [facility] [id number] [place], [place] [id number] Indexer: Ad Harris PhD, Phone: [phone] Gerber Bah MD [facility] - [facility]) [address] [place] [address] * SONOGRAM - COMPLETE (07/16/2024 1:23 PM STAFF DEVELOPER) Linked Results Indication ======== Dating/NT Abnormal NIPT [...] discuss plan of care. Coding ====== Procedures 92122: 1st Trimester [facility] P[facility] Anatomical Region Laterality Modality Other 07/16/2024 1:23 PM STAFF DEVELOPER Augusta Leggett MD [facility] ORDERABLES * (ABNORMAL) HEMOGLOBIN A1C - POCT (IP) BEAKER (02/02/2017 2:46 PM CDT) Hemoglobin A1c POCT 6.8(A) 3.4 - 6.1 % [facility] POCT TESTING QC Verified Yes Yes [facility] PO CT TESTING Blood BLOOD SPECIMEN / Unknown 02/02/2017 2:46 PM CDT Deon Monteiro MD LAB - POINT OF CARE ORDERABLES [facility] POCT TESTING [address] [phone] * (ABNORMAL) MICROALB/CREAT RATIO URINE RANDOM PANEL (02/02/2017 2:38 PM CDT) Creatinine Urine 103.98 mg/dL 02/03/20 17 4:18 PM CDT [facility] Microalbumin Urine 3.3(H) <1.7 mg/dL 02/02/2017 4:18 PM CDT [facility] Microalbumin/Crea tinine Ratio 32(H) <30 mg/g 02/02/2017 4:18 PM CDT [facility] Urine URINE SPECIMEN OBTAINED BY CLEAN CATCH PROCEDURE / Unknown Collection / Unknown 02/02/2017 2:38 PM CDT 02/02/2017 3:10 PM CDT Deon Monteiro MD LAB - URINE CHEMISTR Y ORDERABLES [facility] [address] [place] [address] * (ABNORMAL) COMPREHENSIVE METABOLIC PANEL (02/02/2017 2:38 PM T) [facility] Glucose 208(H) 70 - 105 mg/dL 02/02/2017 4:07 PM [facility] Sodium 136 136 - 145 mmol/L 02/02/2017 4:07 PM [facility] Potassium 4.0 3.5 - 5.1 mmol/L 02/02/2017 4:07 PM [facility] Chloride 101 98 - 107 mmol/L 02/02/2017 4:07 PM [facility] CO2 26 20 - 28 mmol/L 02/02/2017 4:07 PM [facility] Calcium 9.75 9.08 - 10.48 mg/dL 02/02/2017 4:07 PM [facility] Anion Gap 9 5 - 20 mmol/L 02/02/2017 4:07 PM [facility] BUN 14.0 5.3 - 18.7 mg/dL 02/02/2017 4:07 PM [facility] Creatinine 0.50(L) 0.61 - 1.07 mg/dL 02/02/2017 4:07 PM [facility] Alkaline Phosphatase 74(L) 100 - 390 U/L 02/02/2017 4:07 PM [facility] ALT 68(H) 8 - 65 U/L 02/02/2017 4:07 PM [facility] AST 48(H) 3 - 35 U/L 02/02/2017 4:07 PM [facility] Protein Total 8.1 6.3 - 8.2 gm/dL 02/02/2017 4:07 PM [facility] Albumin 4.5 3.3 - 4.9 gm/dL 02/02/2017 4:07 PM [facility] Bilirubin Total 0.3 0.3 - 1.2 mg/dL 02/02/2017 4:07 PM [facility] eGFR by MDRD mL/min/1. 73m2 02/02/2017 4:07 PM [facility] Comment: eGFR calculations are not performed for children under 18 years old. eGFR by MDRD mL/min/1. 73m2 02/02/2017 4:07 PM CDT [facility] Comment: eGFR calculations are not performed for children under 18 years old. Blood BLOOD SPECIMEN / Unknown Venipuncture / Unknown 02/02/2017 2:38 PM CDT 02/02/2017 3:15 PM CDT Deon Monteiro MD LAB - CHEMISTRY NICOLA HARTMAN [facility] [address] [place] [address] from Last 3 Months or Most Recently Relevant to Health Maintenance Care Teams Ag Equipment Field Service Technician Relationship Specialty Start Date End Date Gerber Betts DO [address] [place] [id number] PCP - General Family Medicine Geriatric Medicine 07/18/24
--- OUTSIDE RECORDS SUMMARY | 2024-07-23 01:58 | XMS_ITS | Clinical Summary ---
Author Organization [facility] [place] Address [address] [place] [address] Care Team Providers Care [employer] Fscm Developer Name Role Phone Gerber Betts Kg LOGAN Primary Care Provider + Source Comments [facility] [place],non-owned Affiliates and Associated Physician Practices is amultiple site organization consisting of ambulatory clinics and hospital sitesin [place], [place], [place] and [place]. This disclosure is being madepursuant to the Care Everywhere program and may not contain all information available regarding this patient. Last updated 18.[facility] [place] Allergies Active Allergy Reactions Criticality Noted Date Comments Codeine Urticaria Medium 04/20/2016 Morphine Urticaria Medium 04/20/2016 Medications * Be aware that medications may not be up to date on this document. Alwaysverify current medications with the patient. Medication Sig Dispensed Refills Start Date End Date Status albuterol HFA (PROVENTIL;JUAN COLLENE;PROAIR) 108 (90 BASE) MCG/ACT inhaler Inhale 2 [...] mg/g (< 30) Jul 19, 2016 ([place], [place]): first morning voided urine microalbumin/creatinine: 23 ug/g (< 30) Apr 20, 2016 - spot urine microalbumin/creatinine: 36 mg/g (< 30) Jul 19, 2016 ([place], [place]): first morning voided urine microalbumin/creatinine: 23 ug/g (< 30) Last Assessment & Plan: ? Nonspecific vs early diabetic related microalbuminuria 1. Obtain first morning voided urine specimen for microalbumin/creatinine ratio (laboratory requisition given at the time of the office visit). 2. Expectant observation. 3. Return appointment in three months. Assessment & Plan (06/29/2016 12:53 PM EDUCATIONAL ADMINISTRATOR): ? Nonspecific vs early diabetic related microalbuminuria 1. Obtain first morning voided urine specimen for microalbumin/creatinine ratio (laboratory requisition given at the time of the office visit). 2. Expectant observation. 3. Return appointment in three months. Controlled type 2 diabetes bisi garcia without complication, without long-term current use of insulin 04/21/2016 Overview (06/29/2016): Apr 15, 2016 - [facility], [address], [place] [address] Na 143 mmol/L, K 4.4 mmol/L, Cl [...] months. Assessment & Plan (06/29/2016 12:48 PM EDUCATIONAL ADMINISTRATOR): Good glycemic control. 1. Metformin 1000 mg bid 2. Home glucose monitoring twice daily. 3. Daily physical exercise (60 minutes daily) to promote weight loss 4. Return appointment in three months. Assessment & Plan (04/21/2016 4:13 PM EDUCATIONAL ADMINISTRATOR): New onset, probably type II, diabetes mellitus. [...] 130) Jul 19, 2016 - [facility] Cholesterol 151 mg/dL (140-199), triglycerides 235 mg/dL (< 150), HDL- cholesterol 37 mg/dL (> 40), LDL-cholesterol 67 (< 130) cholesterol 261 mg/dL (100-170); triglyceride 925 mg/dL (140-199), HDL- cholesterol 41 mg/dL (< 150), LDL-cholesterol mg/dL (< 130) Jul 19, 2016 - [facility] Cholesterol 151 mg/dL (140-199), triglycerides 235 mg/dL [...] sweets/fats Assessment & Plan (06/29/2016 12:45 PM EDUCATIONAL ADMINISTRATOR): 1. Dietary counseling provided 2. Fasting lipid profile (laboratory requisition given at the time of the office visit). .3 Return appointment in three months. Assessment & Plan (04/21/2016 4:13 PM EDUCATIONAL ADMINISTRATOR): ? Familial 1. Fasting lipid profile 2. [...] BURGOS) Assessment & Plan (06/29/2016 12:46 PM EDUCATIONAL ADMINISTRATOR): ? Nonspecific elevation vs evolving BURGOS 1. Repeat serum ALT level (laboratory requisition given at the time of the office visit). 3. Expectant observation. 3. Return appointment in three months. Assessment & Plan (04/21/2016 4:14 PM EDUCATIONAL ADMINISTRATOR): ? BURGOS 1. Repeat serum AST/ALT in one month. 2. Consider referral to Pediatric Gastroenterology Type 2 diabetes mellitus with polyneuropathy Overview (07/16/2024): Apr 15, 2016 - [facility], [address], [place] [address] Na 143 mmol/L, K 4.4 mmol/L, Cl [...] Department Care Team Description 07/18/2024 12:16 PM EDUCATIONAL ADMINISTRATOR Anesthesia Event [facility] [address] [place] [address] Lamin Llanes MD 07/18/2024 12:05 PM EDUCATIONAL ADMINISTRATOR - 07/18/2024 1:02 PM EDUCATIONAL ADMINISTRATOR Surgery [facility] [address] [place] [address] Karla Zamudio MD SUCTION DILATION AND CURETTAGE 07/18/2024 9:32 AM EDUCATIONAL ADMINISTRATOR - 07/18/2024 3:47 PM EDUCATIONAL ADMINISTRATOR Hospital Encounter [facility] [address] [place] [address] Karla Zamudio MD Surgery General Discharge Disposition: Home or Self Care 07/18/2024 Travel 07/17/2024 Patient Outreach [facility]/ EVALUATION UNIT [address] [place] [address] [address] [place] [address] Yazmin Blackmon RN Care Management (Received a referral for SDOH needs. US report states no cardiac activity and pt has a scheduled D&C tomorrow. Will close this referral. ) 07/16/2024 11:34 AM EDUCATIONAL ADMINISTRATOR - 07/16/2024 11:59 PM EDUCATIONAL ADMINISTRATOR Hospital Encounter [facility]/ EVALUATION UNIT [address] [place] [address] Kimmy Sanderson MD Discharge Disposition: Home or Self Care 07/16/2024 11:33 AM EDUCATIONAL ADMINISTRATOR Hospital Encounter [facility]/ EVALUATION UNIT [address] [place] [address] Kimmy Sanderson MD Discharge Disposition: Home or Self Care 07/16/2024 11:32 AM EDUCATIONAL ADMINISTRATOR Hospital Encounter [facility]/ EVALUATION UNIT [address] [place] [address] Alphonse Quispe MD Discharge Disposition: Home or Self Care 07/16/2024 11:31 AM EDUCATIONAL ADMINISTRATOR Hospital Encounter [facility] MAT[facility]/ EVALUATION UNIT [address] [place] [address] Alphonse Quispe MD Discharge Disposition: Home or Self Care 07/16/2024 Travel 07/11/2024 Telephone [facility]/ EVALUATION UNIT 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 Somewhat hard 07/16/2024 [facility] Occupat ional Health - Occupational Stress [...] things needed for daily living? No 07/16/2024 [place] Depression Scale Answer Date Recorded [place] Depression Scale Total 11 07/16/2024 The thought [...] any time in the past 12 m [facility], were you homeless or living in a correction (including now)? No 07/16/2024 Estimated Date of Delivery Comme nts Yes 01/26/2025 Based on last me nstrual period of 04/21/2024 Sex and Gender Information Value Date Recorded Sex Assigned at Not on file Gender Identity Not on file Sexual Orientation Not on file Last Filed Vital Signs Vital Sign Reading Time Taken Comments Blood Pressure 107/70 07/18/2024 2:55 PM EDUCATIONAL ADMINISTRATOR Pulse 90 07/18/2024 2:55 PM EDUCATIONAL ADMINISTRATOR Temperature 36.3 C (97.3 F) 07/18/2024 1:42 PM EDUCATIONAL ADMINISTRATOR Respiratory Rate 16 07/18/2024 2:55 PM EDUCATIONAL ADMINISTRATOR Oxygen Saturation 97% 07/18/2024 2:55 PM EDUCATIONAL ADMINISTRATOR Inhaled Oxygen Concentration - - Weight 86.2 kg (190 lb) 07/18/2024 10:04 AM EDUCATIONAL ADMINISTRATOR Height 162.6 cm (5' 4 ) 07/18/2024 10:04 AM EDUCATIONAL ADMINISTRATOR Body Mass Index 32.61 07/18/2024 10:04 AM EDUCATIONAL ADMINISTRATOR Plan of Treatment Upcoming Encounters Date Type Department Care Team (Late st Contact Info) Description 08/13/2024 12:40 PM CDT Appointment [facility]/ EVALUATION UNIT [address] [place] [address] Health Maintenance Due Date Last Done Comments [...] CARDIAC RHYTHM STRIP ORDER 07/22/2024 10:40 PM EDUCATIONAL ADMINISTRATOR GLUCOSE - POINT OF CARE Routine 07/18/2024 1:06 PM EDUCATIONAL ADMINISTRATOR PATHOLOGY TISSUE EXAM (STL) Routine 07/18/2024 12:37 PM EDUCATIONAL ADMINISTRATOR Diagnosis unknown LARYNGEAL MASK AIRWAY Routine 07/18/2024 12:23 PM EDUCATIONAL ADMINISTRATOR [place] SURG RX MISSED MISCARRIAGE,1ST TRI 07/18/2024 11:49 AM EDUCATIONAL ADMINISTRATOR Diagnosis unknown BLOOD TYPE VERIFICATION Routine 07/18/2024 10:25 AM EDUCATIONAL ADMINISTRATOR Pre-op testing TYPE + SCREEN PANEL BERONICA 07/18/2024 1 0:19 AM EDUCATIONAL ADMINISTRATOR Pre-op testing GLUCOSE - POINT OF CARE Routine 07/18/2024 10:18 AM EDUCATIONAL ADMINISTRATOR BETA-2 GLYCOPROTEIN 1 ANTIBODY IGG/IGM PANEL Routine 07/16/2024 3:37 PM EDUCATIONAL ADMINISTRATOR Recurrent loss without current CARDIOLIPIN ANTIBODY IGG/IGM PANEL Routine 07/16/2024 3:37 PM EDUCATIONAL ADMINISTRATOR Recurrent loss without current LUPUS ANTICOAGULANT PANEL Routine 07/16/2024 3:37 PM EDUCATIONAL ADMINISTRATOR Recurrent loss without current TSH REFLEX FREE T4 Routine 07/16/2024 3: 37 PM EDUCATIONAL ADMINISTRATOR Recurrent loss without current SONOGRAM - COMPLETE Routine 07/16/2024 1 :23 PM EDUCATIONAL ADMINISTRATOR HEMOGLOBIN A1C - POCT (IP) BEAKER Routine [...] CARDIAC RHYTHM STRIP ORDER (07/22/2024 10:40 PM EDUCATIONAL ADMINISTRATOR) Narrative 07/22/2024 10:40 PM EDUCATIONAL ADMINISTRATOR Ordered by an unspecified provider. Scanned Document CARDIAC SERVICES ORD ERABLES * (ABNORMAL) GLUCOSE - POINT OF CARE (07/18/2024 1:06 PM EDUCATIONAL ADMINISTRATOR) Only the most recent of2 resultswithin the time period is included. Glucose WB/POC 133(H) 70 - 99 mg/dL 07/20/2024 1:56 AM EDUCATIONAL ADMINISTRATOR [facility] Specimen Type Cap Fingerstick 2024 1:56 AM [facility] Blood BLOOD SPECIMEN / Unknown 07/18/2024 1:06 PM EDUCATIONAL ADMINISTRATOR 07/20/2024 1:56 AM EDUCATIONAL ADMINISTRATOR Karla Zamudio MD LAB - POINT OF CARE ORDERABLES [facility] [address] [place] [address] * PATHOLOGY TISSUE EXAM (STL) (07/18/2024 12:37 PM EDUCATIONAL ADMINISTRATOR) Case Report Surgical Pathology Report Case: [id number] Authorizing Provider: Karla Zamudio MD Collected: 07/18/2024 12:37 PM Ordering Location: [facility] Received: 07/18/2024 [...] cm in aggregate. parts are not identified. Mud Logger sections submitted in cassette [id number]. JULIO CESAR/DAVID 07/19/2024 9:40 AM [facility] Microscopic Description Sections show immature chorionic villi and decidua. 07/19/2024 9:40 AM [facility] Pathologist Location at [facility] 07/19/2024 9:40 AM [facility] Disclaimer All histochemical and/or immunohistochemical results are interpreted with controls that demonstrate appropriate staining reactions before reporting results. Note on use of immunocytochemistry reagents: This test was developed and its performance characteristic determined by [facility], Department of Laboratory Medicine. It [...] be interpreted with caution. 07/19/2024 9:40 AM EDUCATIONAL ADMINISTRATOR [facility] Embedded Images 07/19/2024 9:40 AM EDUCATIONAL ADMINISTRATOR [facility] Pathology/Cytolo gy PRODUCTS OF CONCEPTION TISSUE SPECIMEN / Unknown 07/18/2024 12:37 PM EDUCATIONAL ADMINISTRATOR 07/18/2024 1:15 PM EDUCATIONAL ADMINISTRATOR Comment:Pre-op diagnosis: Diagnosis unknown [R69] Karla Zamudio MD LAB - PATHOLOGY/CYTO LOGY ORDERABLES Performing Organization Address City/State/[facility] Co de Phone Number [facility] [address] [place] [address] * LARYNGEAL MASK AIRWAY (07/18/2024 12:23 PM EDUCATIONAL ADMINISTRATOR) Narrative Alessio Fuentes APRN-CRNA - 07/18/2024 12:23 PM EDUCATIONAL ADMINISTRATOR Alessio Fuentes APRN-CRNA 07/18/2024 12:23 PM LMA [...] * BLOOD TYPE VERIFICATION (07/18/2024 10:25 AM EDUCATIONAL ADMINISTRATOR) ABO Rh O POS 07/18/2024 10:55 AM EDUCATIONAL ADMINISTRATOR [facility] Blood Bank BLOOD SPECIMEN / Unknown Venipuncture / Unknown 07/18/2024 10:25 AM EDUCATIONAL ADMINISTRATOR 07/18/2024 10:26 AM EDUCATIONAL ADMINISTRATOR Artemio Casanova MD LAB - BLOOD BANK ORD ERABLES Performing Organization Address City/[facility]/ZIP Co de Phone Number [facility] [address] [place] [address] * TYPE + SCREEN PANEL (07/18/2024 10:19 AM EDUCATIONAL ADMINISTRATOR) ABO Rh O POS 07/18/2024 10:55 AM EDUCATIONAL ADMINISTRATOR [facility] Comment:No history; collect retype. Antibody Screen NEG 10:55 AM EDUCATIONAL ADMINISTRATOR [facility] Blood Bank BLOOD SPECIMEN / Unknown Venipuncture / Unknown 07/18/2024 10:19 AM EDUCATIONAL ADMINISTRATOR 07/18/2024 10:21 AM EDUCATIONAL ADMINISTRATOR Artemio Casanova MD LAB - BLOOD BANK ORD ERABLES Performing Organization Address [facility] Co de Phone Number [facility] [address] [place] [address] * TSH REFLEX FREE T4 (07/16/2024 3:37 PM EDUCATIONAL ADMINISTRATOR) TSH 0.466 0.350 - 4.940 uIU/mL 07/16/2024 4:32 PM EDUCATIONAL ADMINISTRATOR [facility] Blood BLOOD SPECIMEN / Unknown Venipuncture / Unknown 07/16/2024 3:37 PM EDUCATIONAL ADMINISTRATOR 07/16/2024 3:51 PM EDUCATIONAL ADMINISTRATOR Gerber Bah MD LAB - CHEMISTRY ORDERABLES Performing Organization Address City/[facility]/ZIP Co de Phone Number [facility] [address] [place] [address] * LUPUS ANTICOAGULANT PANEL (07/16/2024 3:37 PM EDUCATIONAL ADMINISTRATOR) APTT 27.4 23.0 - 38.4 Seconds 07/19/2024 10:07 AM [facility] PT 12.9 12.1 - 14.8 Seconds 07/19/2024 10:07 AM [facility] INR 1.0 See Comment 07/19/2024 10:07 AM [facility] [place] Buffer 46.2 Seconds 025 10:07 AM [facility] [place] Phospholipid 40.4 Seconds 07/19/2024 10:07 AM [facility] [place] Delta 5.8 <8.0 Seconds 07/19/2024 10:07 AM [facility] Interpretation [place] Negative 07/19/2024 10:07 AM [facility] Comment:Up to 15-20% of yoel ents [...] Unknown Venipuncture / Unknown 07/16/2024 3:37 PM EDUCATIONAL ADMINISTRATOR 07/16/2024 3:51 PM EDUCATIONAL ADMINISTRATOR Gerber Bah MD LAB - HEMATOLOG Y ORDERABLES [facility] [address] [place] [id number], [facility] [phone] * CARDIOLIPIN ANTIBODY IGG/IGM PANEL (07/16/2024 3:37 PM EDUCATIONAL ADMINISTRATOR) Cardiolipin Antibody IgG <9 0 - 14 GPL U/mL 07/18/2024 3:07 PM EDUCATIONAL ADMINISTRATOR [facility] ([facility]) Comment: Negative: <15 Indeterminate: 15 - 20 Low-Med Positive: >20 - 80 High Positive: >80 Cardiolipin Antibody IgM <9 0 - 12 MPL U/mL 07/18/2024 3:07 PM EDUCATIONAL ADMINISTRATOR [facility] ([facility]) Comment: Negative: <13 Indeterminate: 13 - 20 Low-Med Positive: >20 - 80 High Positive: >80 Blood BLOOD SPECIMEN / Unknown Venipuncture / Unknown 07/16/2024 3:37 PM EDUCATIONAL ADMINISTRATOR 07/16/2024 3:51 PM EDUCATIONAL ADMINISTRATOR Narrative [facility] ([facility]) - 07/18/2024 3:07 PM EDUCATIONAL ADMINISTRATOR Performed at: 01 - [facility] [address] [place], [place] [id number] Magneto Specialist: Ad Harris PhD, Phone: [phone] Gerber Bah MD LAB - SEROLOGY ORDERABLES [facility] ([facility]) [address] [place] [address] * BETA-2 GLYCOPROTEIN 1 ANTIBODY IGG/IGM PANEL (07/16/2024 3:37 PM EDUCATIONAL ADMINISTRATOR) [facility] Beta-2 Glycoprotein I Antibody IgG <9 0 - 20 GPI IgG units 07/18/2024 2:08 PM EDUCATIONAL ADMINISTRATOR [facility] ([facility]) Comment: The reference interval reflects a 3SD or 99th percentile interval, which is thought to represent a potentially clinically significant result in accordance with the International Consensus Statement on the classification criteria for definitive antiphospholipid syndrome (APS). J Thromb Haem 2006;4:295-306. Beta-2 Glycoprotein I Antibody IgM <9 0 - 32 GPI IgM units 07/18/2024 2:08 PM EDUCATIONAL ADMINISTRATOR [facility] ([facility]) Comment: The reference interval reflects a 3SD or 99th percentile interval, which is thought to represent a potentially clinically significant result in accordance with the International Consensus Statement on the classification criteria for definitive antiphospholipid syndrome (APS). J Thromb Haem 2006;4:295-306. Blood BLOOD SPECIMEN / Unknown Venipuncture / Unknown 07/16/2024 3:37 PM EDUCATIONAL ADMINISTRATOR 07/16/2024 3:51 PM EDUCATIONAL ADMINISTRATOR Narrative [facility] ([facility]) - 07/18/2024 2:08 PM EDUCATIONAL ADMINISTRATOR Performed at: 01 - [facility] [address] [place], [place] [id number] [place] Specialist: Ad Harris PhD, Phone: [phone] Gerber Bah MD LAB - CHEMISTRY ORDERABLES [facility]) [address] [place] [address] * SONOGRAM - COMPLETE (07/16/2024 1:23 PM EDUCATIONAL ADMINISTRATOR) Linked Results Indication ======== Dating/NT Abnormal NIPT [...] discuss plan of care. Coding ====== Procedures 68899: 1st Tr[facility] Anatomical Region Laterality Modality Other 07/16/2024 1:23 PM EDUCATIONAL ADMINISTRATOR Augusta Leggett MD [facility] ORDERABLES * (ABNORMAL) HEMOGLOBIN A1C - POCT (IP) BEAKER (02/02/2017 2:46 PM CDT) Hemoglobin A1c POCT 6.8(A) 3.4 - 6.1 % [facility] POCT TESTING QC Verified Yes Yes [facility] PO CT TESTING Blood BLOOD SPECIMEN / Unknown 02/02/2017 2:46 PM CDT Deon Monteiro MD LAB - POINT OF CARE ORDERABLES Performing Organization Address [facility] Co de Phone Number [facility] POCT TESTING [address] [phone] * (ABNORMAL) MICROALB/CREAT RATIO URINE RANDOM PANEL (02/02/2017 2:38 PM CDT) Creatinine Urine 103.98 mg/dL 02/03/20 17 4:18 PM CDT [facility] Microalbumin Urine 3.3(H) <1.7 mg/dL 02/02/2017 4:18 PM CDT [facility] Microalbumin/Crea tinine Ratio 32(H) <30 mg/g 02/02/2017 4:18 PM CDT [facility] Urine URINE SPECIMEN OBTAINED BY CLEAN CATCH PROCEDURE / Unknown Collection / Unknown 02/02/2017 2:38 PM CDT 02/02/2017 3:10 PM CDT Deon Monteiro MD LAB - URINE CHEMISTR Y ORDERABLES Performing Organization Address [facility]/ZIP Co de Phone Number [facility] [address] [place] [address] * (ABNORMAL) COMPREHENSIVE METABOLIC PANEL (02/02/2017 2:38 PM T) [facility] Glucose 208(H) 70 - 105 mg/dL 02/02/2017 4:07 PM [facility] Sodium 136 136 - 145 mmol/L 02/02/2017 4:07 PM [facility] Potassium 4.0 3.5 - 5.1 mmol/L 02/02/2017 4:07 PM [facility] Chloride 101 98 - 107 mmol/L 02/02/2017 4:07 PM [facility] CO2 26 20 - 28 mmol/L 02/02/2017 4:07 PM [facility] Calcium 9.75 9.08 - 10.48 mg/dL 02/02/2017 4:07 PM [facility] Anion Gap 9 5 - 20 mmol/L 02/02/2017 4:07 PM [facility] BUN 14.0 5.3 - 18.7 mg/dL 02/02/2017 4:07 PM [facility] Creatinine 0.50(L) 0.61 - 1.07 mg/dL 02/02/2017 4:07 PM [facility] Alkaline Phosphatase 74(L) 100 - 390 U/L 02/02/2017 4:07 PM [facility] ALT 68(H) 8 - 65 U/L 02/02/2017 4:07 PM [facility] AST 48(H) 3 - 35 U/L 02/02/2017 4:07 PM [facility] Protein Total 8.1 6.3 - 8.2 gm/dL 02/02/2017 4:07 PM [facility] Albumin 4.5 3.3 - 4.9 gm/dL 02/02/2017 4:07 PM [facility] Bilirubin Total 0.3 0.3 - 1.2 mg/dL 02/02/2017 4:07 PM [facility] eGFR by MDRD mL/min/1. 73m2 02/02/2017 4:07 PM [facility] Comment: eGFR calculations are not performed for children under 18 years old. eGFR by MDRD mL/min/1. 73m2 02/02/2017 4:07 PM [facility] Comment: eGFR calculations are not performed for children under 18 years old. Blood BLOOD SPECIMEN / Unknown Venipuncture / Unknown 02/02/2017 2:38 PM CDT 02/02/2017 3:15 PM CDT Deon Monteiro MD LAB - CHEMISTRY NICOLA HARTMAN [facility] [address] [place] [address] from Last 3 Months or Most Recently Relevant to Health Maintenance Care Teams [employer] Fscm Developer Relationship Specialty Start Date End Date Gerber Betts DO [address] [place] [phone] PCP - General Family Medicine Geriatric Medicine 07/18/24
--- OUTSIDE RECORDS SUMMARY | 2024-07-23 01:58 | XMS_ITS | Encounter Summary ---
Author Organization [facility] Address [address] [place] [address] Care Team Providers Care Tack Driller Name Role Phone Michael Colorado MD Primary Care Provider [phone] Gerber Betts DO Primary Care Provider + Reason for Visit * Reason Onset Date Comments Parent Return Call 04/25/2016 Mom returned your call from last week. Encounter Details Date Type Department Care Team ([facility] Contact Info) Description 04/25/2016 Telephone [facility] Pediatrics - Endocrinology [address] [place] [address] Deon Monteiro MD [address] [place] [phone] Parent Return Call (Mom returned your call from last week.) Social History Tobacco Use Types Packs/Day Years Used Date Smoking Tobacco: Never Sex and Gender Information Value Date Recorded Sex Assigned at Not on file Gender Identity Not on file Sexual Orientation Not on file documented as of this encounter Plan of Treatment Upcoming Encounters Date Type Department Care Team ([facility] Contact Info) Description 08/13/2024 12:40 PM CDT Appointment [facility]/ EVALUATION UNIT [address] [place] [address] [address] [place] [address] documented as of this encounter Visit Diagnoses Not on filedocumented in this encounter Care Teams Tack Driller Relationship Specialty Start Date End Date Michael Colorado MD [address] [place] [address] [address] [place] [address] PCP - General Pediatrics 04/20/16 07/17/24 Gerber Betts DO [address] [place] [address] PCP - General Family Medicine Geriatric Medicine 07/18/24 documented as of this encounter
[2024-07-23] MEDS: diphenhydrAMINE HCl INJ 50 MG/ML VIAL 25 MG IM (02:03)
[2024-07-23] MEDS: ACETAMINOPHEN 500 MG TABLET 1000 MG PO (02:03)
[2024-07-23] MEDS: PROCHLORPERAZINE EDISYLATE 10 MG/2 ML VIAL IM (02:04)
--- NOTE | 2024-07-23 02:16 | ED_ITS ---
HPI - General Adult General Chief complaint: Vaginal Bleeding Stated complaint: D/C x4 days Time Seen by Provider: 07/23/24 01:43 History of Present Illness HPI narrative: This is a 24-year-old female presenting vaginal bleeding. She had a D&C performed on 05/16 at [facility]. Since then she had been doing well but then had increased bleeding today. She has also developed a migraine headache. She has been taking Motrin Tylenol with minimal relief. Related Data Home Medications ?Medication ?Instructions ?Recorded ?Confirmed ?Last Taken ?Type aripiprazole 10 mg tablet 10 mg PO DAILY 03/05/23 03/05/23 1 Day Ago History ~03/04/23 clonidine HCl 0.2 mg tablet 0.2 mg PO HS 03/05/23 03/05/23 1 Day Ago History ~03/04/23 dextroamphetamine-amphetamine ER 20 mg PO DAILY 03/05/23 03/05/23 1 Day Ago History 20 mg 24hr capsule,extend release ~03/04/23 gabapentin 100 mg capsule 100 mg PO TID 03/05/23 03/05/23 1 Day Ago History ~03/04/23 insulin detemir U-100 100 unit/mL 10 unit subcut BID 03/05/23 03/06/23 1 Day Ago History (3 mL) subcutaneous pen ~03/04/23 Allergies Allergy/AdvReac Type Severity Reaction Status Date / Time morphine Allergy Hives Verified 06/29/24 13:49 [facility] Past Medical History Medical History Chlamydia Treated (approx 2020) Hidradenitis suppurativa of left axilla ADHD (attention deficit hyperactivity disorder) Bipolar disorder Diabetic peripheral neuropathy ROSIE (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) Surgical History Surgical History No pertinent past surgical history Family History Family History Father Bipolar disorder Schizophrenia Heart failure Mother Age: 37 Schizophrenia Diabetes mellitus Hypertension Bipolar disorder COPD (chronic obstructive pulmonary disease) Chronic kidney disease Social History Social History Social History: She has been involved with her boyfriend for the last 2 years. She has lived with her boyfriend and his family for the last year. 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 She reports that she drinks 5-6 alcoholic beverages every couple of months. Code status: Full code Smoking status: Never smoker Alcohol intake: current Drinks per week: 3 Substance use: former Substance use type: marijuana Last use: 2019 Lack of Transportation: No Lack of Food: Never True Current Housing: I Have Housing Concerned About Future Housing: No Difficulty Paying Gas/Electric Bills: No Difficulty Paying for Meds: No Currently Unemployed: No Education: High School Diploma/GED Difficulty w/ Childcare or Family Care: No Spiritual care concerns: No Exam 2 Narrative: APPEARANCE: No apparent distress. Head: atraumatic. EYES: EOMI, NOSE: Atraumatic NECK: Trachea midline RESPIRATORY: No increased rate of breathing CARDIOVASCULAR: RRR, ABDOMINAL: Non-distended soft nontender MUSCULOSKELETAl: No obvious deformities NEURO: Alert. Moving 4/4 extremities SKIN:: Warm, dry. Normal color PSYCHIATRIC: Normal affect Course Vital Signs Vital signs: Vital Signs Temperature 98.1 F 07/22/24 20:06 Pulse Rate 99 07/22/24 20:06 Respiratory Rate 15 07/22/24 20:06 Blood Pressure 156/88 H 07/22/24 20:06 Pulse Oximetry 100 07/22/24 20:06 Oxygen Delivery Room Air 07/22/24 20:06 Temperature 98.1 F 07/22/24 20:06 Pulse Rate 99 07/22/24 20:06 Respiratory Rate 15 07/22/24 20:06 Blood Pressure 156/88 H 07/22/24 20:06 Pulse Oximetry 100 07/22/24 20:06 Oxygen Delivery Room Air 07/22/24 20:06 Medical Decision Making MDM Narrative Medical decision making narrative: -Course: 24-year-old female presenting with bleeding several days after she had a D&C for miscarriage. Vital signs are stable and she is well-appearing. Hemoglobin is 10.3. HCG 660. Pelvic exam performed. Cervical os was closed with some dark red blood in the vaginal vault. Patient has not called her [facility]. Patient's pain was treated and [facility] will [facility]. Given return precautions for severe bleeding. Patient's also had a migraine. She is given a migraine cocktail with some improvement in her pain Vital Signs Vital Signs: Vital Signs Temperature 98.1 F 07/22/24 20:06 Pulse Rate 99 07/22/24 20:06 Respiratory Rate 15 07/22/24 20:06 Blood Pressure 156/88 H 07/22/24 20:06 Pulse Oximetry 100 07/22/24 20:06 Oxygen Delivery Room Air 07/22/24 20:06 Temperature 98.1 F 07/22/24 20:06 Pulse Rate 99 07/22/24 20:06 Respiratory Rate 15 07/22/24 20:06 Blood Pressure 156/88 H 07/22/24 20:06 Pulse Oximetry 100 07/22/24 20:06 Oxygen Delivery Room Air 07/22/24 20:06 Lab Data 07/22/24 20:13 07/22/24 20:13 Labs: Lab Results 07/22/24 Range/Units 20:13 WBC 12.0 H (4.5-10.0) K/mm3 RBC 3.67 L (4.2-5.4) M/mm3 Hgb 10.3 L D (12.0-15.0) g/dL Hct 30.0 L (37.0-47.0) % MCV 81.7 (80-100) fl MCH 28.1 (26-34) pg MCHC 34.3 (32-36) g/dl RDW 13.0 (11.5-14.5) % Plt Count 299 (150-375) k/mm3 MPV 11.3 H (7.4-10.4) fl Immature Gran % (Auto) 0.8 H (0-0.5) % Neut % (Auto) 67.9 (45.5-73.1) % Lymph % (Auto) 24.3 (18.3-44.2) % Amite % (Auto) 5.4 (2.6-8.5) % Eos % (Auto) 1.3 (0-4.4) % Baso % (Auto) 0.3 (0.2-1.2) % Lymph # (Auto) 2.91 (0.9-3.2) K/mm3 [place]ite # (Auto) 0.7 H (0.1-0.6) K/mm3 Eos # (Auto) 0.2 (0-0.3) K/mm3 Baso # (Auto) 0.0 (0.0-0.1) K/mm3 Abs Immat Gran (auto) 0.10 H (0.00-0.031) K/mm3 Absolute Neuts (auto) 8.1 H (1.3-6.7) K/mm3 Absolute Nucleated RBC 0.000 (0.0-0.012) K/mm3 Nucleated RBC % 0.0 (0.0-0.2) % PT 12.7 (11.1-14.7) Seconds INR 0.9 APTT 23.7 (22.3-36.8) Seconds Sodium 138 (137-145) mmol/L Potassium 4.1 (3.4-5.0) mmol/L Chloride 101 (98-107) mmol/L Carbon Dioxide 22 (22-30) mmol/L Anion Gap 15 H (4-12) mmol/L BUN 10 (7-17) mg/dL Creatinine 0.42 L (0.7-1.0) mg/dL Estim Creat Clear Calc 179 ml/min Estimated GFR > 60 (59 - ) Glucose 286 H (65-110) mg/dL Calcium 9.2 (8.4-10.2) mg/dL Total Bilirubin 0.4 (0.2-1.3) mg/dL AST 26 (14-36) U/L ALT 20 (6-35) U/L Alkaline Phosphatase 66 (38-126) U/L Total Protein 8.0 (6.3-8.2) g/dL Albumin 4.2 (3.5-5.1) g/dL Beta HCG, Quant 660.67 mIU/ML Blood Type O Positive Antibody Screen Negative Screen TNP Baby's Blood Type Not Reportable Baby's NAVIN Not Reportable Doses of RhIg Required 0 Discharge Plan Discharge Clinical Impression: Vaginal bleeding Patient Disposition: Home, Self-Care Condition: Stable Instructions: Antibiotic Form, Miscarriage (ED) Additional Instructions: Please use Motrin Tylenol for pain. Use oxycodone for breakthrough pain. Please call your OBGYN 1st thing tomorrow morning for follow-up. Return if you develop severe bleeding or abdominal pain. Patient Language: Greenlandic Prescriptions: New ibuprofen 800 mg tablet 800 mg PO TID PRN (Reason: pain) 7 Days Qty: 21 0RF acetaminophen 500 mg tablet 1,000 mg PO TID PRN (Reason: melania) 7 Days Qty: 42 0RF oxycodone 5 mg tablet 5 mg PO Q4H PRN (Reason: pain) Qty: 7 0RF No Action diclofenac sodium 50 mg tablet,delayed release (DR/EC) 50 mg PO TID PRN (Reason: pain) Qty: 30 0RF methocarbamol 750 mg tablet 750 mg PO Q6H PRN (Reason: muscle spasm) Qty: 30 0RF lidocaine 5 % adhesive patch,medicated 1 patch topical DAILY Qty: 15 0RF Rx Instructions: leave on most painful area for up to 12 hrs clindamycin HCl 300 mg capsule 300 mg PO Q6H 7 Days Qty: 28 0RF naproxen 375 mg tablet 375 mg PO BID Qty: 14 0RF clonidine HCl 0.2 mg tablet 0.2 mg PO HS dextroamphetamine-amphetamine 20 mg capsule,extended release 24hr 20 mg PO DAILY gabapentin 100 mg capsule 100 mg PO TID aripiprazole 10 mg tablet 10 mg PO DAILY insulin detemir U-100 100 unit/mL (3 mL) insulin pen 10 unit SUBCUT BID insulin aspart U-100 [Novolog U-100 Insulin aspart] 100 unit/mL Solution 10 unit subcut TIDWM 30 Days Qty: 9 0RF ondansetron 4 mg tablet,disintegrating 4 mg PO Q6H PRN (Reason: nausea and vomiting) Qty: 10 0RF hydrocodone-acetaminophen 5-325 mg tablet 1 tablet PO Q6H PRN (Reason: pain) Qty: 7 0RF doxycycline monohydrate 100 mg capsule 100 mg PO BID Qty: 14 0RF cefdinir 300 mg capsule 300 mg PO Q12H 7 Days Qty: 14 0RF Follow-up/Referrals: Alpesh,DO Gerber [Primary Care Provider] -
[2024-07-23] MEDS: KETOROLAC 15 MG/ML VIAL (*BKC) (02:17)
[2024-07-23 02:26] VITALS: BP 144/98; PULSE 92; RESP 15; O2SAT 100
[2024-07-23 03:08] VITALS: BP 140/86; PULSE 87; RESP 16; O2SAT 100
== END 2024-07-23 03:09 | disposition home or self-care (01) ==
PROVIDERS: Emergency Provider Emergency Medicine; PCP Student in an Organized Health Care Education/Training Program
DX: N93.9 Abnormal uterine and vaginal bleeding, unspecified (principal); F90.9 Attention-deficit hyperactivity disorder, unspecified type; F31.9 Bipolar disorder, unspecified; E11.42 Type 2 diabetes mellitus with diabetic polyneuropathy; Z79.4 Long term (current) use of insulin
CPT/HCPCS: 36415; 80053; 84702; 85025; 85461; 85610; 85730; 86850; 86900; 86901; 96372; 96374; 99284; A9270; J0780; J1200; J1885

== ENCOUNTER 2024-08-19 20:21 | Emergency (ER) | payer OTHER, SELFPAY ==
[2024-08-19 20:24] VITALS: BP 136/83; PULSE 99; RESP 18; TEMP 36.5; O2SAT 100
--- OUTSIDE RECORDS SUMMARY | 2024-08-19 20:24 | XMS_ITS | Clinical Summary ---
Author Organization [facility] Address [address] [place] [address] Care Team Providers Care Accounts Payable Clerk Name Role Phone Gerber Betts Kg LOGAN [...] tabletIndications: Type 2 diabetes mellitus with polyneuropathy ([facility]) Take 1 tablet daily for 2 weeks, then take 2 tablets daily there after 60 tablet 2 4 Active Active Problems Problem Noted Date Diagnosed Date Hidradenitis suppurativa 06/13/2023 Bipolar 1 disorder, depressed ([facility]) 06/13/2020 Urine test positive for microalbuminuria 017 Overview (06/13/2023): Apr 20, 2016 - spot urine microalbumin/creatinine: 36 mg/g (< 30) Jul 19, 2016 ([place], [place]): first morning voided urine microalbumin/creatinine: 23 ug/g (< 30) Last Assessment & Plan: ? Nonspecific vs early diabetic related microalbuminuria 1. Obtain first morning voided urine specimen for microalbumin/creatinine ratio (laboratory requisition given at the time of the office visit). 2. Expectant observation. 3. Return appointment in three months. Type 2 diabetes mellitus wit h polyneuropathy ([facility]) 04/21/2016 Overview (06/13/2023): Apr 15, 2016 - [facility], [address], [place] [address] Na 143 mmol/L, K 4.4 mmol/L, Cl [...] 130) Jul 19, 2016 - [facility] Cholesterol 151 mg/dL (140-199), triglycerides 235 [...] associat ed with type 2 diabetes mellitus ([facility]) 2016 Encounters Date Type Department Care Team Description 07/22/2024 Scan HEALTH INFO SRVCS Scanned, [facility] (SCAN) from Last 3 Months Immunizations Name Administration Dates Next Due Dtap [...] Comments Blood Pressure 104/66 06/13/2023 8:52 AM [facility] Pulse 66 06/13/2023 8:52 AM [facility] Temperature 36.3 C (97.4 F) 06/13/2023 8:52 AM [facility] Respiratory Rate 16 06/13/2023 8:52 AM [facility] Oxygen Saturation 97% 06/13/2023 8:52 AM [facility] Inhaled Oxygen Concentration - - Weight 87.3 kg (192 lb 6.4 oz) 06/13/2023 8:52 A M [facility] Height 162.6 cm (5' 4 ) 06/13/2023 8:52 AM [facility] Body Mass Index 33.03 06/13/2023 8:52 AM [facility] Plan of Treatment Health Maintenance Due Date [...] 03/21/2019, 04/12/2016, Additional history exists PHQ-2 ([facility] [facility] [place]) 06/05/2024 06/13/2023 Diabetes: Retinopathy Eye Exam 08/27/2025 08/28/2023 DTaP, Tdap and Td Vaccines (8 - Td or Tdap) 06/13/2033 06/13/2023, 12/03/2012, 12/24/2004, Additional history exists Hepatitis B Vaccines Completed 01/18/2001, 2000, 2000 HPV Vaccines Completed 04/16/2014, 09/0 09/2012, 12/03/2012 Meningococcal Vaccine Completed 01/17/2019, 013 RSV Immunizations Under 20 Months Aged Out No longer eligible based on patient's age to complete this topic Procedures Procedure Name Priority Date/Time Associated Diagnosis Comments OUTSIDE LAB (SCAN ORDER) 07/22/2024 OUTSIDE PT/INR (SCAN ORDER) 07/22/2024 DIABETIC RETINOPATHY EXAM (NEGATIVE)(SCAN ORDER) Routine 08/28/2023 HEMOGLOBIN, GLYCOSYLATED Routine 06/13/2023 Type 2 diabetes mellitus with polyneuropathy from Last 3 Months or Most Recently Relevant to Health Maintenance Results * OUTSIDE PT/INR (SCAN ORDER) (07/22/2024) 07/22/2024 [employer] [facility] Scanned SCANNING Final Resu lt * OUTSIDE LAB (SCAN ORDER) (07/22/2024) 07/22/2024 [employer] Scanned SCANNING Final Resu lt * DIABETIC RETINOPATHY EXAM (NEGATIVE) (08/28/2023) [employer] Scanned SCANNING Final Resu lt [facility] * HEMOGLOBIN, GLYCOSYLATED (06/13/2023) HGB A1C 10.5 % -[place] 06/13/2023 us Gerber Betts DO LABORATORY Final Re sult [facility] [address] [place] [address], from Last 3 Months or Most Recently Relevant to Health Maintenance [place] [address] [address] [place] [id number] Care Teams Accounts Payable Clerk Relationship Specialty Start Date End Date Gerber Betts DO [address] [place] [address] PCP - General FAMILY PRACTICE 06/13/23
--- OUTSIDE RECORDS SUMMARY | 2024-08-19 20:24 | XMS_ITS | Referral Summary ---
Author Organization [facility] Address [address] [facility] [place] [address] Care Team Providers Care Customer Service Clerk Name Role Phone Gerber Betts Kg LOGAN Primary Care Provider + Source Comments [facility],non-owned Affiliates and Associated Physician Practices is amultiple site organization consisting of ambulatory clinics and hospital sitesin [place], [place], [place]. This disclosure is being madepursuant to the Care Everywhere program and may not contain all information available regarding this patient. Last updated 18.[facility] Encounters Date Type Department Care Team Description 08/06/2024 Telephone [facility]/ EVALUATION UNIT [address] [place] [address] Myesha Farr GC Results 07/29/2024 Telephone [facility] - CIVIL RIGHTS INVESTIGATOR [address] [place] [id number] Karla Zamudio MD Question 07/26/2024 Travel 07/26/2024 12:11 PM DISTANCE EDUCATION FACULTY LIAISON - 07/26/2024 11:59 PM DISTANCE EDUCATION FACULTY LIAISON Hospital Encounter [facility]/ EVALUATION UNIT [address] [place] [address] Jered Solis MD Discharge Disposition: Home or Self Care 07/25/2024 Telephone [facility]/ EVALUATION UNIT [address] [place] [address] Mercedes Tejada Scheduling 07/24/2024 Travel 07/24/2024 11:30 AM DISTANCE EDUCATION FACULTY LIAISON - 07/24/2024 2:19 PM DISTANCE EDUCATION FACULTY LIAISON Emergency ER at [facility] [address] [place] [address] Vaginal bleeding Discharge Disposition: Home or Self Care 07/24/2024 Telephone [facility]/ EVALUATION UNIT [address] [place] [address] Janice Durate RN Vaginal Bleeding 07/18/2024 Travel 07/18/2024 12:16 PM DISTANCE EDUCATION FACULTY LIAISON Anesthesia Event [facility] [address] [place] [address] Lamin Llanes MD 07/18/2024 12:05 PM DISTANCE EDUCATION FACULTY LIAISON - 07/18/2024 1:02 PM DISTANCE EDUCATION FACULTY LIAISON Surgery [facility] [address] [place] [address] Karla Zamudio MD SUCTION DILATION AND CURETTAGE 07/18/2024 9:32 AM DISTANCE EDUCATION FACULTY LIAISON - 07/18/2024 3:47 PM DISTANCE EDUCATION FACULTY LIAISON Hospital Encounter [facility] [address] [place], [place] [id number] Karla Zamudio MD Surgery General Discharge Disposition: Home or Self Care 07/17/2024 Patient Outreach [facility]/ EVALUATION UNIT [address] [place] [address] [address] [place] [address] Yazmin Blackmon RN Care Management (Received a referral for SDOH needs. US report states no cardiac activity and pt has a scheduled D&C tomorrow. Will close this referral. ) 07/16/2024 Travel 07/16/2024 11:31 AM DISTANCE EDUCATION FACULTY LIAISON Hospital Encounter [facility]/ EVALUATION UNIT [address] [place] [address] [address] [place] [address] Alphonse Quispe MD Discharge Disposition: Home or Self Care 07/16/2024 11:34 AM DISTANCE EDUCATION FACULTY LIAISON - 07/16/2024 11:59 PM DISTANCE EDUCATION FACULTY LIAISON Hospital Encounter [facility]/ EVALUATION UNIT [address] [place] [address] [address] [place] [address] Kimmy Sanderson MD Discharge Disposition: Home or Self Care 07/16/2024 11:32 AM DISTANCE EDUCATION FACULTY LIAISON Hospital Encounter [facility]/ EVALUATION UNIT [address] [place] [address] Alphonse Quispe MD Discharge Disposition: Home or Self Care 07/16/2024 11:33 AM DISTANCE EDUCATION FACULTY LIAISON Hospital Encounter [facility]/ EVALUATION UNIT [address] [place] [address] Kimmy Sanderson MD Discharge Disposition: Home or Self Care 07/11/2024 Telephone [facility]/ EVALUATION UNIT [address] [place] [address] Radha Romero, button attaching machine operator from Last 3 Months Allergies Active Allergy Reactions Criticality Noted Date Comments Morphine Urticaria Medium 04/20/2016 Medications * Be aware that medications may not be up to date on this document. Alwaysverify current medications with the patient. Medication Sig Dispensed Refills Start Date End Date Status albuterol HFA (PROVENTIL;VENTOLIN ;PROAIR) 108 (90 BASE) MCG/ACT inhaler Inhale 2 (two) puffs by mouth every 6 hours as needed Active Blood Glucose Monitoring Suppl (TRUETRACK BLOOD GLUCOSE) W/DEVICE KIT Use as directed 1 Kit 1 04/20/2016 Active metFORMIN (GLUCOPHAGE) 500 MG tabletIndications:C ontrolled type 2 diabetes mellitus without complication, without long-term current use of insulin (HCC) Take two 500 mg tablets in the am and pm with food. 120 Tab 5 02/02/2017 Active acetone,urine, (KETOSTIX) stripIndications:Co ntrolled type 2 diabetes mellitus without complication, without long-term current use of insulin (HCC) Use if blood sugar greater than 250 or in times of illness. 100 Strip 5 02/02/2017 Active Additional Information Patient not taking.Reported on 07/16/2024 MICROLET LANCETS MISCIndications:Con trolled type 2 diabetes mellitus without complication, without long-term current use of insulin (HCC) Use 1 Each as directed Use to test blood sugar 2 -3 times daily. 100 Each 11 02/02/2017 Active blood glucose (TRUETRACK TEST) test stripIndications:Co ntrolled type 2 diabetes mellitus without complication, without long-term current use of insulin (HCC) Use to test blood sugar 2-3 times daily. 100 Strip 5 02/02/2017 Active amphetamine-dextroa mphetamine XR 24hr (Adderall XR) 20 MG capsule Take 1 (one) capsule by mouth every morning 05/10/2023 Active metFORMIN ER 24hr (Glucophage XR) 500 MG tablet Take 1 (one) tablet by mouth daily with dinner 06/13/2023 Active metFORMIN ER 24hr (Glucophage XR) 500 MG tabletIndications:D iabetes mellitus affecting in first trimester (HCC) Take 1 (one) tablet by mouth 2 times daily 60 tablet 3 07/16/2024 Active Additional Information Patient not taking.Reported on 07/26/2024 ARIPiprazole (Abilify) 5 MG tablet Take 2 (two) tablets by mouth once daily Active Active Problems Problem Noted Date Diagnosed [...] 36 mg/g (< 30) Jul 19, 2016 ([place], [place]): first morning voided urine microalbumin/creatinine: 23 ug/g (< 30) Apr 20, 2016 - spot urine microalbumin/creatinine: 36 mg/g (< 30) Jul 19, 2016 ([place], [place]): first morning voided urine microalbumin/creatinine: 23 ug/g (< 30) Last Assessment & Plan: ? Nonspecific vs early diabetic related microalbuminuria 1. Obtain first morning voided urine specimen for microalbumin/creatinine ratio (laboratory requisition given at the time of the office visit). 2. Expectant observation. 3. Return appointment in three months. Assessment & Plan (06/29/2016 12:53 PM DISTANCE EDUCATION FACULTY LIAISON): ? Nonspecific vs early diabetic related microalbuminuria 1. Obtain first morning voided urine specimen for microalbumin/creatinine ratio (laboratory requisition given at the time of the office visit). 2. Expectant observation. 3. Return appointment in three months. Controlled type 2 diabetes bisi garcia without complication, without long-term current use of insulin 04/21/2016 Overview (06/29/2016): Apr 15, 2016 - [facility], [address], [place] [address] Na 143 mmol/L, K 4.4 mmol/L, Cl [...] months. Assessment & Plan (06/29/2016 12:48 PM DISTANCE EDUCATION FACULTY LIAISON): Good glycemic control. 1. Metformin 1000 mg bid 2. Home glucose monitoring twice daily. 3. Daily physical exercise (60 minutes daily) to promote weight loss 4. Return appointment in three months. Assessment & Plan (04/21/2016 4:13 PM DISTANCE EDUCATION FACULTY LIAISON): New onset, probably type II, diabetes mellitus. [...] mg/dL (< 130) Jul 19, 2016 - [facility] Cholesterol 151 mg/dL (140-199), triglycerides 235 mg/dL (< 150), HDL- cholesterol 37 mg/dL (> 40), LDL-cholesterol 67 (< 130) cholesterol 261 mg/dL (100-170); triglyceride 925 mg/dL (140-199), HDL- cholesterol 41 mg/dL (< 150), LDL-cholesterol mg/dL (< 130) Jul 19, 2016 - [facility] Cholesterol 151 mg/dL (140-199), triglycerides [...] sweets/fats Assessment & Plan (06/29/2016 12:45 PM DISTANCE EDUCATION FACULTY LIAISON): 1. Dietary counseling provided 2. Fasting lipid profile (laboratory requisition given at the time of the office visit). .3 Return appointment in three months. Assessment & Plan (04/21/2016 4:13 PM DISTANCE EDUCATION FACULTY LIAISON): ? Familial 1. Fasting lipid profile 2. [...] BURGOS) Assessment & Plan (06/29/2016 12:46 PM DISTANCE EDUCATION FACULTY LIAISON): ? Nonspecific elevation vs evolving BURGOS 1. Repeat serum ALT level (laboratory requisition given at the time of the office visit). 3. Expectant observation. 3. Return appointment in three months. Assessment & Plan (04/21/2016 4:14 PM DISTANCE EDUCATION FACULTY LIAISON): ? BURGOS 1. Repeat serum AST/ALT in one month. 2. Consider referral to Pediatric Gastroenterology Type 2 diabetes mellitus with polyneuropathy Overview (07/16/2024): Apr 15, 2016 - [facility], [address], [place] [address] Na 143 mmol/L, K 4.4 mmol/L, Cl [...] (IIV4) 06/13/2023 MENINGOCOCCAL CONJUGATE (MCV4P) 12/03/2012 MENINGOCOCCAL MCV4 01/17/2019 MMR 10/04/2005, 4,10/27/2001,07/30 Meningococcal B Recombinant [...] medical care, and heating? Somewhat hard 07/16/2024 [facility] [place] [facility] - Occupational Stress [...] things needed for daily living? No 07/16/2024 Austin Depression Scale Answer Date Recorded Austin Depression Scale Total 11 07/16/2024 The thought [...] any time in the past 12 m [facility], were you homeless or living in a usp (including now)? No 07/16/2024 Estimated Date of Delivery Comme nts Yes 01/26/2025 Based on last pr nstrual period of 04/21/2024 Sex and Gender Information Value Date Recorded Sex Assigned at Not on file Gender Identity Not on file Sexual Orientation Not on file Last Filed Vital Signs Vital Sign Reading Time Taken Comments Blood Pressure 124/63 07/26/2024 12:20 PM DISTANCE EDUCATION FACULTY LIAISON Pulse 89 07/26/2024 12:20 PM DISTANCE EDUCATION FACULTY LIAISON Temperature 36.7 C (98 F) 07/24/2024 10:06 AM DISTANCE EDUCATION FACULTY LIAISON Respiratory Rate 17 07/24/2024 10:06 AM DISTANCE EDUCATION FACULTY LIAISON Oxygen Saturation 99% 07/24/2024 10:06 AM DISTANCE EDUCATION FACULTY LIAISON Inhaled Oxygen Concentration - - Weight 87.2 kg (192 lb 3.2 oz) 07/26/2024 12:20 PM DISTANCE EDUCATION FACULTY LIAISON Height 162.6 cm (5' 4 ) 07/18/2024 10:04 AM DISTANCE EDUCATION FACULTY LIAISON Body Mass Index 32.99 07/18/2024 10:04 AM DISTANCE EDUCATION FACULTY LIAISON Plan of Treatment Upcoming Encounters Date Type Department Care Team (Late st Contact Info) Description 09/06/2024 2:00 PM CDT Appointment [facility]/ EVALUATION UNIT [address] [place] [address] Procedures Procedure Name Priority Date/Time Associated Diagnosis Comments HEMOGLOBIN A1C Routine 07/26/2024 1:10 PM DISTANCE EDUCATION FACULTY LIAISON Controlled type 2 diabetes mellitus without complication, without long-term current use of insulin (HCC) US PELVIS W TRANSVAG W DOP NON OB STAT 07/24/2024 12:42 PM DISTANCE EDUCATION FACULTY LIAISON Vaginal bleeding TYPE + SCREEN PANEL STAT 07/24/2024 1 0:39 AM DISTANCE EDUCATION FACULTY LIAISON HCG BETA BLOOD QUANTITATIVE STAT 07/24/2024 10:39 AM DISTANCE EDUCATION FACULTY LIAISON COMPREHENSIVE METABOLIC PANEL STAT 07/24/2024 10:39 AM DISTANCE EDUCATION FACULTY LIAISON CBC W AUTO DIFFERENTIAL STAT 07/24/2024 10:39 AM DISTANCE EDUCATION FACULTY LIAISON CARDIAC RHYTHM STRIP ORDER 07/22/2024 10:40 PM DISTANCE EDUCATION FACULTY LIAISON GLUCOSE - POINT OF CARE Routine 07/18/2024 1:06 PM DISTANCE EDUCATION FACULTY LIAISON PATHOLOGY TISSUE EXAM (STL) Routine 07/18/2024 12:37 PM DISTANCE EDUCATION FACULTY LIAISON Diagnosis unknown LARYNGEAL MASK AIRWAY Routine 07/18/2024 12:23 PM DISTANCE EDUCATION FACULTY LIAISON WI SURG RX MISSED MISCARRIAGE,1ST TRI 07/18/2024 11:49 AM DISTANCE EDUCATION FACULTY LIAISON Diagnosis unknown BLOOD TYPE VERIFICATION Routine 07/18/2024 10:25 AM DISTANCE EDUCATION FACULTY LIAISON Pre-op testing TYPE + SCREEN PANEL BERONICA 07/18/2024 1 0:19 AM DISTANCE EDUCATION FACULTY LIAISON Pre-op testing GLUCOSE - POINT OF CARE Routine 07/18/2024 10:18 AM DISTANCE EDUCATION FACULTY LIAISON BETA-2 GLYCOPROTEIN 1 ANTIBODY IGG/IGM PANEL Routine 07/16/2024 3:37 PM DISTANCE EDUCATION FACULTY LIAISON Recurrent loss without current CARDIOLIPIN ANTIBODY IGG/IGM PANEL Routine 07/16/2024 3:37 PM DISTANCE EDUCATION FACULTY LIAISON Recurrent loss without current LUPUS ANTICOAGULANT PANEL Routine 07/16/2024 3:37 PM DISTANCE EDUCATION FACULTY LIAISON Recurrent loss without current TSH REFLEX FREE T4 Routine 07/16/2024 3: 37 PM DISTANCE EDUCATION FACULTY LIAISON Recurrent loss without current SONOGRAM - COMPLETE Routine 07/16/2024 1 :23 PM DISTANCE EDUCATION FACULTY LIAISON MICROALB/CREAT RATIO URINE RANDOM PANEL Routine 02/02/2017 2:38 PM CDT Controlled type 2 diabetes mellitus without complication, without long-term current use of insulin (HCC) from Last 3 Months or Most Recently Relevant to Health Maintenance Results * (ABNORMAL) HEMOGLOBIN A1C (07/26/2024 1:10 PM DISTANCE EDUCATION FACULTY LIAISON) [facility] Hemoglobin A1c 8.2(H) <5.7 % 07/26/2024 3:17 PM DISTANCE EDUCATION FACULTY LIAISON [facility] Estimated Average Glucose 189 mg/dL 07/26/2024 3:17 PM [facility] Blood BLOOD SPECIMEN / Unknown Venipuncture / Unknown 07/26/2024 1:10 PM DISTANCE EDUCATION FACULTY LIAISON 07/26/2024 3:01 PM DISTANCE EDUCATION FACULTY LIAISON [facility] - 07/26/2024 3:17 PM DISTANCE EDUCATION FACULTY LIAISON HbA1c Interpretation: Normal: < 5.7% Pre-diabetes: 5.7-6.4% Diabetes: Equal to or greater than 6.5% Test results diagnostic of diabetes should be repeated for confirmation. Treatment target values recommended by ADA and other clinical organizations should be used to evaluate metabolic control in patients. This test should not replace glucose testing for patients with Type 1 diabetes, pediatric patients, or women. Falsely low HbA1c results may be observed in patients with clinical conditions that shorten erythrocyte life span or decrease mean erythrocyte age such as the presence of unstable hemoglobin variants, elevated hemoglobin F level or other causes of hemolytic anemia. HbA1c may not accurately reflect glycemic control when clinical conditions that affect erythrocyte survival are present. Severe Iron deficiency anemia may yield falsely high results. Hemoglobin A1c assay should not be used to diagnose or monitor diabetes in patients with malignancy, recent blood transfusion, chronic kidney or liver disease. This method may yield falsely low results when hemoglobin (HbF) exceeds 5% in the specimen. The Rg Alinity assay for the measurement of HbA1c is a National Glycohemoglobin Standardization Program (NGSP) certified method. Jered Solis MD LAB - CHEMISTRY NICOLA HARTMAN [facility] Organization Address City/State/[facility] Co de Phone Number [facility] [address] [phone] * US Pelvis W Transvag W Dop Non Ob (07/24/2024 12:42 PM DISTANCE EDUCATION FACULTY LIAISON) Anatomical Region Laterality Modality Pelvis Ultrasound 07/24/2024 12:5 0 PM DISTANCE EDUCATION FACULTY LIAISON Narrative 07/24/2024 12:52 PM DISTANCE EDUCATION FACULTY LIAISON PROCEDURE: US PELVIS W TRANSVAG W DOP NON OB, DATE/TIME OF EXAM: 07/24/2024 12:47 PM, LOCATION [facility] INDICATION: N93.9: Abnormal uterine and vaginal bleeding, unspecified Pelvic ultrasound transabdominal and transvaginal views per graph history: Pelvic bleeding with recent D&C from miscarriage. The uterus is normal in size and configuration measuring 9.7 cm. The endometrial stripe is thickened and heterogeneous in appearance measuring up to 1.4 cm in thickness. There is no significant color flow within the endometrium. The right ovary measures 2.6 cm and the left ovary measures 2.3 cm. Normal color flow and spectral waveforms are present. DIAGNOSIS: Abnormal heterogeneous and thickened endometrium. No definite color flow is seen within the endometrial structures. Normal ovaries > Interpreting Provider: David Phillips MD on 07/24/2024 12:52 PM Procedure Note David Phillips MD - 07/24/2024 PROCEDURE: US PELVIS W TRANSVAG W DOP NON OB, DATE/TIME OF EXAM: 07/24/2024 12:47 PM, LOCATION [facility] INDICATION: N93.9: Abnormal uterine and vaginal bleeding, unspecified Pelvic ultrasound transabdominal and transvaginal views per graphhistory: Pelvic bleeding with recent D&C from miscarriage. The uterus is normal in size and configuration measuring 9.7 cm. The endometrial stripe is thickened and heterogeneous in appearancemeasuring up to 1.4 cm in thickness. There is no significant color flow within the endometrium. The right ovary measures 2.6 cm and the left ovary measures 2.3 cm.Normal color flow and spectral waveforms are present. DIAGNOSIS: Abnormal heterogeneous and thickened endometrium. No definite color flow is seen within the endometrial structures. Normal ovaries > Interpreting Provider: David Phillips MD on 07/24/2024 12:52 PM Danielal Carmen PA-C US ORDERABLES * TYPE + SCREEN PANEL (07/24/2024 10:39 AM DISTANCE EDUCATION FACULTY LIAISON) Only the most recent of2 resultswithin the time period is included. Pathologist [facility] ABO Rh O POS 07/24/2024 11:30 AM DISTANCE EDUCATION FACULTY LIAISON [facility] Comment:History checked. Antibody Screen NEG 11:30 AM DISTANCE EDUCATION FACULTY LIAISON [facility] Blood Bank BLOOD SPECIMEN / Unknown Venipuncture / Unknown 07/24/2024 10:39 AM DISTANCE EDUCATION FACULTY LIAISON 07/24/2024 10:48 AM DISTANCE EDUCATION FACULTY LIAISON Andrea SINGH-COAL YARD SUPERVISOR LAB - BLOOD BA NK ORDERABLES [facility] [address] [phone] * (ABNORMAL) CBC W AUTO DIFFERENTIAL (07/24/2024 10:39 AM DISTANCE EDUCATION FACULTY LIAISON) Pathologist [facility] WBC 11.4(H) 4.0 - 10.7 x10E9/L 07/24/2024 10:50 AM DISTANCE EDUCATION FACULTY LIAISON [facility] RBC Count 3.84(L) 3.90 - 5.20 x10E12/L 07/24/2024 10:50 AM [facility] Hemoglobin 10.5(L) 11.9 - 15.8 g/dL 07/24/2024 10:50 AM [facility] Hematocrit 31.6(L) 34.8 - 46.1 % 07/24/2024 10:50 AM [facility] MCV 82.3 80.0 - 98.0 fL 07/24/2024 10:50 AM [facility] MCH 27.3 26.7 - 33.6 pg 07/24/2024 10:50 AM [facility] MCHC 33.2 31.7 - 36.3 g/dL 07/24/2024 10:50 AM [facility] RDW-CV 13.4 11.3 - 14.8 % 07/24/2024 10:50 AM [facility] Platelet Count 332 150 - 420 x10E9/L 07/24/2024 10:50 AM [facility] MPV 11.2 7.8 - 11.4 fL 07/24/2024 10:50 AM [facility] Neutrophil % 76.0(H) 41.0 - 74.0 % 07/24/2024 10:50 AM [facility] Lymphocyte % 15.9(L) 17.0 - 47.0 % 07/24/2024 10:50 AM [facility] Monocyte % 5.1 3.0 - 11.0 % 07/24/2024 10:50 AM [facility] Eosinophil % 1.8 0.0 - 7.0 % 07/24/2024 10:50 AM [facility] Basophil % 0.4 0.0 - 1.6 % 07/24/2024 10:50 AM [facility] Immature Granulocytes % 0.8 0.0 - 1.0 % 07/24/2024 10:50 AM [facility] Neutrophil Absolute 8.68(H) 1.60 - 7.50 x10E9/L 07/24/2024 10:50 AM [facility] Lymphocyte Absolute 1.81 1.00 - 4.40 x10E9/L 07/24/2024 10:50 AM [facility] Monocyte Absolute 0.58 0.15 - 1.00 x10E9/L 07/24/2024 10:50 AM [facility] Eosinophil Absolute 0.21 0.00 - 0.60 x10E9/L 07/24/2024 10:50 AM [facility] Basophil Absolute 0.04 0.00 - 0.13 x10E9/L 07/24/2024 10:50 AM [facility] Blood BLOOD SPECIMEN / Unknown Venipuncture / Unknown 07/24/2024 10:39 AM DISTANCE EDUCATION FACULTY LIAISON 07/24/2024 10:48 AM [facility] Andrea Rawls APNP-COAL YARD SUPERVISOR LAB - HEMATOLO GY ORDERABLES [facility] [address] [place] [id number] * (ABNORMAL) COMPREHENSIVE METABOLIC PANEL (07/24/2024 10:39 AM [facility]) Glucose 275(H) 70 - 99 mg/dL 07/24/2024 11:03 AM [facility] Sodium 136 136 - 145 mmol/L 07/24/2024 11:03 AM [facility] Potassium 4.4 3.5 - 5.1 mmol/L 07/24/2024 11:03 AM [facility] Chloride 106 98 - 107 mmol/L 07/24/2024 11:03 AM [facility] CO2 21(L) 22 - 29 mmol/L 07/24/2024 11:03 AM [facility] Calcium 8.8 8.4 - 10.4 mg/dL 07/24/2024 11:03 AM [facility] Anion Gap 9 6 - 16 mmol/L 07/24/2024 11:03 AM [facility] BUN 14 5.3 - 18.7 mg/dL 07/24/2024 11:03 AM [facility] Creatinine 0.67 0.57 - 1.11 mg/dL 07/24/2024 11:03 AM [facility] Alkaline Phosphatase 55 40 - 150 U/L 07/24/2024 11:03 AM [facility] ALT 18 0 - 55 U/L 07/24/2024 11:03 AM [facility] AST 21 5 - 34 U/L 07/24/2024 11:03 AM [facility] Protein Total 7.1 6.4 - 8.3 gm/dL 07/24/2024 11:03 AM [facility] Albumin 3.3(L) 3.4 - 5.0 gm/dL 07/24/2024 11:03 AM [facility] Bilirubin Total 0.3 0.2 - 1.2 mg/dL 07/24/2024 11:03 AM DISTANCE EDUCATION FACULTY LIAISON [facility] eGFR by CKD-EPI >90 >=90 mL/min/1.7 3 m2 07/24/2024 11:03 AM DISTANCE EDUCATION FACULTY LIAISON [facility] Blood BLOOD SPECIMEN / Unknown Venipuncture / Unknown 07/24/2024 10:39 AM DISTANCE EDUCATION FACULTY LIAISON 07/24/2024 10:48 AM DISTANCE EDUCATION FACULTY LIAISON [facility] - CHEMISTR Y ORDERABLES Performing Organization Address [facility] Co de Phone Number [facility] [address] [place] [id number] * HCG BETA BLOOD QUANTITATIVE (07/24/2024 10:39 AM DISTANCE EDUCATION FACULTY LIAISON) [facility] hCG Quantitative 365.89 mIU/mL 07/24/19 11:47 AM DISTANCE EDUCATION FACULTY LIAISON [facility] Blood BLOOD SPECIMEN / Unknown Venipuncture / Unknown 07/24/2024 10:39 AM DISTANCE EDUCATION FACULTY LIAISON 07/24/2024 10:48 AM DISTANCE EDUCATION FACULTY LIAISON Narrative [facility] - 07/24/2024 11:47 AM DISTANCE EDUCATION FACULTY LIAISON hCG Reference Range, mIU/mL: Non Females 0-6.0 Perimenopausal Females ages 41-55* 0-7.7 Postmenopausal Females age >55* 0-14 Females, Weeks after Last Menstrual Period 0.2-1 week 5-50 1 - 2 weeks 50-500 2 - 3 weeks 100-5000 3 - 4 weeks 500-10,000 4 - 5 weeks 1000-50,000 5 - 6 weeks 10,000-100,000 6 - 8 weeks 15,000-200,000 2 - 3 months 10,000-100,000 Trophoblastic Disease >100,000 *In higher than expected hCG in females > age 40, a serum FSH >20 IU/L makes unlikely. Andrea Doke [facility] - CHEMISTR Y ORDERABLES Performing Organization Address [facility] Co de Phone Number [facility] [address] [place] [phone] * CARDIAC RHYTHM STRIP ORDER (07/22/2024 10:40 PM [facility]) Narrative 07/22/2024 10:40 PM [facility] Ordered by an unspecified provider. Scanned Document CARDIAC SERVICES ORD ERABLES * (ABNORMAL) GLUCOSE - POINT OF CARE (07/18/2024 1:06 PM [facility]) Only the most recent of2 resultswithin the time period is included. Glucose WB/POC 133(H) 70 - 99 mg/dL 07/20/2024 1:56 AM [facility] Specimen Type Cap Fingerstick 2024 1:56 AM [facility] Blood BLOOD SPECIMEN / Unknown 07/18/2024 1:06 PM [facility] 07/20/2024 1:56 AM [facility] Karla Zamudio MD LAB - POINT OF CARE ORDERABLES [facility] [address] [phone] * PATHOLOGY TISSUE EXAM (STL) (07/18/2024 12:37 PM [facility]) Case Report Surgical Pathology Report Case: [id number] Authorizing Provider: Kalra Zamudio MD Collected: 07/18/2024 12:37 PM Ordering Location: [facility] Received: 07/18/2024 01:15 PM Pathologist: [...] cm in aggregate. parts are not identified. Medical Physics Professor sections submitted in cassette [id number]. JULIO CESAR/DAVID 07/19/2024 9:40 AM [facility] Microscopic Description Sections show immature chorionic villi and decidua. 07/19/2024 9:40 AM [facility] Pathologist Location at [facility] 07/19/2024 9:40 AM [facility] Disclaimer All histochemical and/or immunohistochemical results are interpreted with controls that demonstrate appropriate staining reactions before reporting results. Note on use of immunocytochemistry reagents: This test was developed and its performance characteristic determined by [facility], Department of Laboratory Medicine. It has [...] TISSUE SPECIMEN / Unknown 07/18/2024 12:37 PM [facility] 07/18/2024 1:15 PM [facility] Comment:Pre-op diagnosis: Diagnosis unknown [R69] Karla Zamudio MD LAB - PATHOLOGY/CYTO LOGY ORDERABLES Performing Organization Address City/State/[facility] Co de Phone Number [facility] [address] [phone] * LARYNGEAL MASK AIRWAY (07/18/2024 12:23 PM [facility]) Narrative Alessio Fuentes APRN-AUTISTIC TEACHER - 07/18/2024 12:23 PM [facility] Alessio Fuentes APRN-CRNA 07/18/2024 12:23 PM LMA [...] PM. Staff Section Anesthesia Provider: Alessio Fuentes APRN-FLORES Provider #1: Khoi Ortega, Performed the procedure. Lamin Llanes MD GENERAL ANESTHESIA ORDERABLES * BLOOD TYPE VERIFICATION (07/18/2024 10:25 AM [facility]) ABO Rh O POS 07/18/2024 10:55 AM [facility] Blood Bank BLOOD SPECIMEN / Unknown Venipuncture / Unknown 07/18/2024 10:25 AM [facility] 07/18/2024 10:26 AM [facility] Artemio Casanova MD LAB - BLOOD BANK ORD ERABLES Performing Organization Address [facility]/ZIP Co de Phone Number [facility] [address] [place] [address] * TSH REFLEX FREE T4 (07/16/2024 3:37 PM [facility]) TSH 0.466 0.350 - 4.940 uIU/mL 07/16/2024 4:32 PM [facility] Blood BLOOD SPECIMEN / Unknown Venipuncture / Unknown 07/16/2024 3:37 PM [facility] 07/16/2024 3:51 PM [facility] Gerber Bah MD LAB - CHEMISTRY ORDERABLES Performing Organization Address City/[facility]/ZIP Co de Phone Number [facility] [address] [place] [address] * LUPUS ANTICOAGULANT PANEL (07/16/2024 3:37 PM [facility]) APTT 27.4 23.0 - 38.4 Seconds 07/19/2024 10:07 AM [facility] PT 12.9 12.1 - 14.8 Seconds 07/19/2024 10:07 AM [facility] INR 1.0 See Comment 07/19/2024 10:07 AM [facility] [place] Buffer 46.2 Seconds 025 10:07 AM [facility] [place] Phospholipid 40.4 Seconds 07/19/2024 10:07 AM [facility] [place] Delta 5.8 <8.0 Seconds 07/19/2024 10:07 AM [facility] Interpretation [place] Negative 07/19/2024 10:07 AM [facility] Comment:Up to 15-20% of yoel ents [...] Unknown Venipuncture / Unknown 07/16/2024 3:37 PM [facility] 07/16/2024 3:51 PM [facility] Gerber Bah MD LAB - HEMATOLOG Y ORDERABLES [facility] [address] [place] [phone], [facility] [phone] * CARDIOLIPIN ANTIBODY IGG/IGM PANEL (07/16/2024 3:37 PM [facility]IAISON) [facility] Cardiolipin Antibody IgG <9 0 - 14 GPL U/mL 07/18/2024 3:07 PM [facility]IA[facility] ([facility]) Comment: Negative: <15 Indeterminate: 15 - 20 Low-Med Positive: >20 - 80 High Positive: >80 Cardiolipin Antibody IgM <9 0 - 12 MPL U/mL 07/18/2024 3:07 PM [facility]IA[facility] ([facility]) Comment: Negative: <13 Indeterminate: 13 - 20 Low-Med Positive: >20 - 80 High Positive: >80 Blood BLOOD SPECIMEN / Unknown Venipuncture / Unknown 07/16/2024 3:37 PM [facility] 07/16/2024 3:51 PM [facility] Narrative [facility] ([facility]) - 07/18/2024 3:07 PM [facility] Performed at: 01 - Lab[address] [id number] Small Business Banking Officer: Ad Harris PhD, Phone: [phone] Gerber Bah MD LAB - SEROLOGY ORDERABLES Performing Organization Address [facility]/ZIP Co de Phone Number [facility] ([facility]) [address] [place] [address] * BETA-2 GLYCOPROTEIN 1 ANTIBODY IGG/IGM PANEL (07/16/2024 3:37 PM [facility]AC[facility] LIAISON) [facility] Beta-2 Glycoprotein I Antibody IgG <9 0 - 20 GPI IgG units 07/18/2024 2:08 PM [facility]IA[facility] ([facility]) Comment: The reference interval reflects a 3SD or 99th percentile interval, which is thought to represent a potentially clinically significant result in accordance with the International Consensus Statement on the classification criteria for definitive antiphospholipid syndrome (APS). J Thromb Haem 2006;4:295-306. Beta-2 Glycoprotein I Antibody IgM <9 0 - 32 GPI IgM units 07/18/2024 2:08 PM [facility]IA[facility] ([facility]) Comment: The reference interval reflects a 3SD or 99th percentile interval, which is thought to represent a potentially clinically significant result in accordance with the International Consensus Statement on the classification criteria for definitive antiphospholipid syndrome (APS). J Thromb Haem 2006;4:295-306. Blood BLOOD SPECIMEN / Unknown Venipuncture / Unknown 07/16/2024 3:37 PM [facility] 07/16/2024 3:51 PM [facility]ISON Narrative [facility] ([facility]) - 07/18/2024 2:08 PM [facility]IAISON Performed at: - Lab[address] [id number] Small Business Banking Officer: Ad Harris PhD, Phone: [phone] Gerber Bah MD LAB - CHEMISTRY ORDERABLES Performing Organization Address City/[facility]/ZIP Co de Phone Number [facility] ([facility]) [address] [place] [address] * SONOGRAM - COMPLETE (07/16/2024 1:23 PM [facility]ATION [facility]AC[facility]Y LIAISON) [facility] Linked Results Indication ======== Dating/NT Abnormal [...] discuss plan of care. Coding ====== Procedures 99792: 1st Trimester [employer] PACS Anatomical Region Laterality Modality Other 07/16/2024 1:23 PM [facility]IAISON Augusta Leggett MD [facility] ORDERABLES * (ABNORMAL) MICROALB/CREAT RATIO URINE RANDOM PANEL (02/02/2017 2:38 PM CDT) Creatinine Urine 103.98 mg/dL 02/03/20 17 4:18 PM CDT [facility] Microalbumin Urine 3.3(H) <1.7 mg/dL 02/02/2017 4:18 PM CDT [facility] Microalbumin/Crea tinine Ratio 32(H) <30 mg/g 02/02/2017 4:18 PM CDT [facility] Urine URINE SPECIMEN OBTAINED BY CLEAN CATCH PROCEDURE / Unknown Collection / Unknown 02/02/2017 2:38 PM CDT 02/02/2017 3:10 PM CDT Deon Monteiro MD LAB - URINE CHEMISTR Y ORDERABLES [facility] [address] [place] [address] from Last 3 Months or Most Recently Relevant to Health Maintenance Care Teams Customer Service Clerk Relationship Specialty Start Date End Date Gerber Betts DO [address] [place] [id number] PCP - General Family Medicine Geriatric Medicine 07/18/24
--- OUTSIDE RECORDS SUMMARY | 2024-08-19 20:24 | XMS_ITS | Encounter Summary ---
Author Organization [facility] Address [address] [place] [address] Care Team Providers Care Rn Dialysis Name Role Phone Michael Colorado MD Primary Care Provider [phone] Gerber Betts DO Primary Care Provider + Reason for Visit * Reason Onset Date Comments Parent Return Call 04/25/2016 Mom returned your call from last week. Encounter Details Date Type Department Care Team ([facility] Contact Info) Description 04/25/2016 Telephone [facility] - Endocrinology [address] [place] [phone] Deon Monteiro MD [address] [place] [phone] Parent Return Call (Mom returned your call from last week.) Social History Tobacco Use Types Packs/Day Years Used Date Smoking Tobacco: Never Sex and Gender Information Value Date Recorded Sex Assigned at Not on file Gender Identity Not on file Sexual Orientation Not on file documented as of this encounter Plan of Treatment Upcoming Encounters Date Type Department Care Team ([facility] Contact Info) Description 09/06/2024 2:00 PM CDT Appointment [facility] MATERNAL/ EVALUATION UNIT [address] [place] [address] [address] [place] [address] documented as of this encounter Visit Diagnoses Not on filedocumented in this encounter Care Teams Rn Dialysis Relationship Specialty Start Date End Date Michael Colorado MD [address] [place] [address] [address] [place] [address] PCP - General Pediatrics 04/20/16 07/17/24 Gerber Betts DO [address] [place] [id number] PCP - General Family Medicine Geriatric Medicine 07/18/24 documented as of this encounter
--- OUTSIDE RECORDS SUMMARY | 2024-08-19 20:24 | XMS_ITS | Clinical Summary ---
Author Organization [facility] Definition 6 Address [address] [place] [address] Care Team Providers Care Reporting Specialist Name Role Phone JoshsteveGerber arnold Kg LOGAN Primary Care Provider + Source Comments [facility] Definition 6,non-owned Affiliates and Associated Physician Practices is amultiple site organization consisting of ambulatory clinics and hospital sitesin [place], [place], [place] and [place]. This disclosure is being madepursuant to the Care Everywhere program and may not contain all information available regarding this patient. Last updated 18.[facility] Definition 6 Allergies Active Allergy Reactions Criticality Noted Date [...] 36 mg/g (< 30) Jul 19, 2016 ([place], [place]): first morning voided urine microalbumin/creatinine: 23 ug/g (< 30) Apr 20, 2016 - spot urine microalbumin/creatinine: 36 mg/g (< 30) Jul 19, 2016 ([facility], [place], [place]): first morning voided urine microalbumin/creatinine: 23 ug/g (< 30) Last Assessment & Plan: ? Nonspecific vs early diabetic related microalbuminuria 1. Obtain first morning voided urine specimen for microalbumin/creatinine ratio (laboratory requisition given at the time of the office visit). 2. Expectant observation. 3. Return appointment in three months. Assessment & Plan (06/29/2016 12:53 PM SAND TEMPERER): ? Nonspecific vs early diabetic related microalbuminuria 1. Obtain first morning voided urine specimen for microalbumin/creatinine ratio (laboratory requisition given at the time of the office visit). 2. Expectant observation. 3. Return appointment in three months. Controlled type 2 diabetes bisi garcia without complication, without long-term current use of insulin 04/21/2016 Overview (06/29/2016): Apr 15, 2016 - [facility], [address] [place] [address] Na 143 mmol/L, K 4.4 mmol/L, Cl [...] months. Assessment & Plan (06/29/2016 12:48 PM SAND TEMPERER): Good glycemic control. 1. Metformin 1000 mg bid 2. Home glucose monitoring twice daily. 3. Daily physical exercise (60 minutes daily) to promote weight loss 4. Return appointment in three months. Assessment & Plan (04/21/2016 4:13 PM SAND TEMPERER): New onset, probably type II, diabetes mellitus. [...] mg/dL (< 130) Jul 19, 2016 - [facility] Cholesterol 151 mg/dL (140-199), triglycerides 235 mg/dL (< 150), HDL- cholesterol 37 mg/dL (> 40), LDL-cholesterol 67 (< 130) cholesterol 261 mg/dL (100-170); triglyceride 925 mg/dL (140-199), HDL- cholesterol 41 mg/dL (< 150), LDL-cholesterol mg/dL (< 130) Jul 19, 2016 - [facility] Cholesterol 151 mg/dL (140-199), triglycerides 235 [...] sweets/fats Assessment & Plan (06/29/2016 12:45 PM SAND TEMPERER): 1. Dietary counseling provided 2. Fasting lipid profile (laboratory requisition given at the time of the office visit). .3 Return appointment in three months. Assessment & Plan (04/21/2016 4:13 PM SAND TEMPERER): ? Familial 1. Fasting lipid profile 2. [...] BURGOS) Assessment & Plan (06/29/2016 12:46 PM SAND TEMPERER): ? Nonspecific elevation vs evolving BURGOS 1. Repeat serum ALT level (laboratory requisition given at the time of the office visit). 3. Expectant observation. 3. Return appointment in three months. Assessment & Plan (04/21/2016 4:14 PM SAND TEMPERER): ? BURGOS 1. Repeat serum AST/ALT in one month. 2. Consider referral to Pediatric Gastroenterology Type 2 diabetes mellitus with polyneuropathy Overview (07/16/2024): Apr 15, 2016 - [facility], [address], [place], [place] [address] Na 143 mmol/L, K 4.4 mmol/L, Cl [...] Type Department Care Team Description 08/06/2024 Telephone [facility] UN[facility] [address] [place] [address]. [address] [place] [address] Myesha Farr GC Results 07/29/2024 Telephone [facility] - PHOTO TECH [address] [place] [phone] Karla Zamudio MD Question 07/26/2024 12:11 PM SAND TEMPERER - 07/26/2024 11:59 PM SAND TEMPERER Hospital Encounter [facility] [address] [place] [address] Jered Solis MD Discharge Disposition: Home or Self Care 07/26/2024 Travel 07/25/2024 Telephone [facility] [address] [place] [address] Mercedes Tejada Scheduling 07/24/2024 11:30 AM SAND TEMPERER - 07/24/2024 2:19 PM SAND TEMPERER Emergency ER at [facility] [address] [place] [phone] Vaginal bleeding Discharge Disposition: Home or Self Care 07/24/2024 Travel 07/24/2024 Telephone [facility] [address] [place] [address] Janice Duarte RN Vaginal Bleeding 07/18/2024 12:16 PM SAND TEMPERER Anesthesia Event [facility] [address] [place] [phone] Lamin Llanes MD 07/18/2024 12:05 PM SAND TEMPERER - 07/18/2024 1:02 PM SAND TEMPERER Surgery [facility] [address] [place] [phone] Karla Zamudio MD SUCTION DILATION AND CURETTAGE 07/18/2024 9:32 AM SAND TEMPERER - 07/18/2024 3:47 PM SAND TEMPERER Hospital Encounter [facility] [address] [place] [phone] Karla Zamudio MD Surgery General Discharge Disposition: Home or Self Care 07/18/2024 Travel 07/17/2024 Patient Outreach [facility] [address] [place] [address] Yazmin Blackmon, RN Care Management (Received a referral for SDOH needs. US report states no cardiac activity and pt has a scheduled D&C tomorrow. Will close this referral. ) 07/16/2024 11:34 AM SAND TEMPERER - 07/16/2024 11:59 PM SAND TEMPERER Hospital Encounter [facility] [address] [place] [address] Kimmy Sanderson MD Discharge Disposition: Home or Self Care 07/16/2024 11:33 AM SAND TEMPERER Hospital Encounter [facility] [address] [place] [address] Kimmy Sanderson MD Discharge Disposition: Home or Self Care 07/16/2024 11:32 AM SAND TEMPERER Hospital Encounter [facility] [address] [place] [address] Alphonse Quispe MD Discharge Disposition: Home or Self Care 07/16/2024 11:31 AM SAND TEMPERER Hospital Encounter [facility] [address] [place] [address] Alphonse Quispe MD Discharge Disposition: Home or Self Care 07/16/2024 Travel 07/11/2024 Telephone [facility] [address] [place] [address] Radha Romero, fisher gill net from Last 3 Months Immunizations Name Administration [...] medical care, and heating? Somewhat hard 07/16/2024 [facility] [place] of Occupat ional Health - Occupational Stress [...] things needed for daily living? No 07/16/2024 [place] Depression Scale Answer Date Recorded [place] Depression Scale Total 11 07/16/2024 The thought [...] any time in the past 12 m [facility], were you homeless or living in a fdc (including now)? No 07/16/2024 Estimated Date of Delivery Comme nts Yes 01/26/2025 Based on last me nstrual period of 04/21/2024 Sex and Gender Information Value Date Recorded Sex Assigned at Not on file Gender Identity Not on file Sexual Orientation Not on file Last Filed Vital Signs Vital Sign Reading Time Taken Comments Blood Pressure 124/63 07/26/2024 12:20 PM SAND TEMPERER Pulse 89 07/26/2024 12:20 PM SAND TEMPERER Temperature 36.7 C (98 F) 07/24/2024 10:06 AM SAND TEMPERER Respiratory Rate 17 07/24/2024 10:06 AM SAND TEMPERER Oxygen Saturation 99% 07/24/2024 10:06 AM SAND TEMPERER Inhaled Oxygen Concentration - - Weight 87.2 kg (192 lb 3.2 oz) 07/26/2024 12:20 PM SAND TEMPERER Height 162.6 cm (5' 4 ) 07/18/2024 10:04 AM SAND TEMPERER Body Mass Index 32.99 07/18/2024 10:04 AM SAND TEMPERER Plan of Treatment Upcoming Encounters Date Type Department Care Team (Late st Contact Info) Description 09/06/2024 2:00 PM CDT Appointment [facility] [address] [place] [address] Health Maintenance Due Date Last Done Comments PAP SMEAR 2000 PNEUMOCOCCAL VACCINE (1 of 1 - PPSV23) 2006 07/30/2001, 2000, 2000, Additional history exists HIV SCREENING 2015 CHLAMYDIA/GONORRHEA SCREENING 2016 DIABETES RETINOPATHY SCREENING 06/29/2016 HEPATITIS C SCREENING 04/06/2018 DIABETES-FOOT EXAM WITH MONOFILAMENT 2018 MENINGOCOCCAL (Group B) VACC INE SHARED DECISION-MAKING (2 of 2 - Bexsero SCDM 2-dose series) 07/20/2019 01/17/2019 COVID-19 VACCINE (1 - 2023-2 5 season) 2024 INFLUENZA VACCINE (#1) 2024 , 03/21/2019, 04/12/2016, Additional history exists DIABETES - URINE PROTEIN SCREENING 06/05/20242016, 04/20/2016 OB-TDAP CURRENT 10/27/2024 06/13/2023, 06/2012 DIABETES-HGB A1C 01/23/2025 07/26/2024, 02/2024, 02/02/2017, Additional history exists DIABETES-SERUM CREATININE 07/24/20252024, 02/02/2017, 04/20/2016 DTAP/TDAP/TD VACCINES (8 - T d or Tdap) 06/13/2033 06/13/2023, 12/03/2012, 12/24/2004, Additional history exists ZOSTER VACCINE (1 of 2) 2050 HEPATITIS B VACCINE Completed 01/18/2001, 2000, 2000 HIB VACCINE Completed 10/10/2001, 01/2001, 2000, Additional history exists HPV VACCINE Completed 04/16/2014, 09/2012, 12/03/2012 MENINGOCOCCAL GROUPS A/C/Y/W VACCINE Completed 01/17/2019, 12/03/2012 Respiratory Syncytial Virus (RSV) Vaccine Pt: or over 60 yrs (No Doses Required) Completed Procedures Procedure Name Priority Date/Time Associated Diagnosis Comments HEMOGLOBIN A1C Routine 07/26/2024 1:10 PM SAND TEMPERER Controlled type 2 diabetes mellitus without complication, without long-term current use of insulin (HCC) US PELVIS W TRANSVAG W DOP NON OB STAT 07/24/2024 12:42 PM SAND TEMPERER Vaginal bleeding TYPE + SCREEN PANEL STAT 07/24/2024 1 0:39 AM SAND TEMPERER HCG BETA BLOOD QUANTITATIVE STAT 07/24/2024 10:39 AM SAND TEMPERER COMPREHENSIVE METABOLIC PANEL STAT 07/24/2024 10:39 AM SAND TEMPERER CBC W AUTO DIFFERENTIAL STAT 07/24/2024 10:39 AM SAND TEMPERER CARDIAC RHYTHM STRIP ORDER 07/22/2024 10:40 PM SAND TEMPERER GLUCOSE - POINT OF CARE Routine 07/18/2024 1:06 PM SAND TEMPERER PATHOLOGY TISSUE EXAM (STL) Routine 07/18/2024 12:37 PM SAND TEMPERER Diagnosis unknown LARYNGEAL MASK AIRWAY Routine 07/18/2024 12:23 PM SAND TEMPERER WI SURG RX MISSED MISCARRIAGE,1ST TRI 07/18/2024 11:49 AM SAND TEMPERER Diagnosis unknown BLOOD TYPE VERIFICATION Routine 07/18/2024 10:25 AM SAND TEMPERER Pre-op testing TYPE + SCREEN PANEL BERONICA 07/18/2024 1 0:19 AM SAND TEMPERER Pre-op testing GLUCOSE - POINT OF CARE Routine 07/18/2024 10:18 AM SAND TEMPERER BETA-2 GLYCOPROTEIN 1 ANTIBODY IGG/IGM PANEL Routine 07/16/2024 3:37 PM SAND TEMPERER Recurrent loss without current CARDIOLIPIN ANTIBODY IGG/IGM PANEL Routine 07/16/2024 3:37 PM SAND TEMPERER Recurrent loss without current LUPUS ANTICOAGULANT PANEL Routine 07/16/2024 3:37 PM SAND TEMPERER Recurrent loss without current TSH REFLEX FREE T4 Routine 07/16/2024 3: 37 PM SAND TEMPERER Recurrent loss without current SONOGRAM - COMPLETE Routine 07/16/2024 1 :23 PM SAND TEMPERER MICROALB/CREAT RATIO URINE RANDOM PANEL Routine 02/02/2017 2:38 PM CDT Controlled type 2 diabetes mellitus without complication, without long-term current use of insulin (HCC) from Last 3 Months or Most Recently Relevant to Health Maintenance Results * (ABNORMAL) HEMOGLOBIN A1C (07/26/2024 1:10 PM SAND TEMPERER) [facility] Hemoglobin A1c 8.2(H) <5.7 % 07/26/2024 3:17 PM SAND TEMPERER [facility] Estimated Average Glucose 189 mg/dL 07/26/2024 3:17 PM [facility] Blood BLOOD SPECIMEN / Unknown Venipuncture / Unknown 07/26/2024 1:10 PM SAND TEMPERER 07/26/2024 3:01 PM SAND TEMPERER [facility] - 07/26/2024 3:17 PM SAND TEMPERER HbA1c Interpretation: Normal: < 5.7% Pre-diabetes: 5.7-6.4% [...] Solis MD LAB - CHEMISTRY NICOLA HARTMAN [facility] Organization Address City/State/[facility] Co de Phone Number [facility] [address] [phone] * US Pelvis W Transvag W Dop Non Ob (07/24/2024 12:42 PM SAND TEMPERER) Anatomical Region Laterality Modality Pelvis Ultrasound 07/24/2024 12:5 0 PM SAND TEMPERER Narrative 07/24/2024 12:52 PM SAND TEMPERER PROCEDURE: US PELVIS W TRANSVAG W DOP NON OB, DATE/TIME OF EXAM: 07/24/2024 12:47 PM, LOCATION [facility] INDICATION: N93.9: Abnormal uterine and vaginal bleeding, [...] DATE/TIME OF EXAM: 07/24/2024 12:47 PM, LOCATION [facility] INDICATION: N93.9: Abnormal uterine and vaginal bleeding, [...] David Phillips MD on 07/24/2024 12:52 PM Daniella Carmen PA-C US ORDERABLES * TYPE + SCREEN PANEL (07/24/2024 10:39 AM SAND TEMPERER) Only the most recent of2 resultswithin the time period is included. Pathologist [facility] ABO Rh O POS 07/24/2024 11:30 AM SAND TEMPERER [facility] Comment:History checked. Antibody Screen NEG 11:30 AM SAND TEMPERER [facility] Blood Bank BLOOD SPECIMEN / Unknown Venipuncture / Unknown 07/24/2024 10:39 AM SAND TEMPERER 07/24/2024 10:48 AM SAND TEMPERER Andrea SINGH-RAILWAY SIGNAL OPERATOR LAB - BLOOD BA NK ORDERABLES [facility] [address] [phone] * (ABNORMAL) CBC W AUTO DIFFERENTIAL (07/24/2024 10:39 AM SAND TEMPERER) Pathologist [facility] WBC 11.4(H) 4.0 - 10.7 x10E9/L 07/24/2024 10:50 AM SAND TEMPERER [facility] RBC Count 3.84(L) 3.90 - 5.20 x10E12/L 07/24/2024 10:50 AM [facility] Hemoglobin 10.5(L) 11.9 - 15.8 g/dL 07/24/2024 10:50 AM [facility] Hematocrit 31.6(L) 34.8 - 46.1 % 07/24/2024 10:50 AM [facility] MCV 82.3 80.0 - 98.0 fL 07/24/2024 10:50 AM [facility] MCH 27.3 26.7 - 33.6 pg 07/24/2024 10:50 AM [facility] MCHC 33.2 31.7 - 36.3 g/dL 07/24/2024 10:50 AM [facility] RDW-CV 13.4 11.3 - 14.8 % 07/24/2024 10:50 AM [facility] Platelet Count 332 150 - 420 x10E9/L 07/24/2024 10:50 AM [facility] MPV 11.2 7.8 - 11.4 fL 07/24/2024 10:50 AM [facility] Neutrophil % 76.0(H) 41.0 - 74.0 % 07/24/2024 10:50 AM [facility] Lymphocyte % 15.9(L) 17.0 - 47.0 % 07/24/2024 10:50 AM [facility] Monocyte % 5.1 3.0 - 11.0 % 07/24/2024 10:50 AM [facility] Eosinophil % 1.8 0.0 - 7.0 % 07/24/2024 10:50 AM [facility] Basophil % 0.4 0.0 - 1.6 % 07/24/2024 10:50 AM [facility] Immature Granulocytes % 0.8 0.0 - 1.0 % 07/24/2024 10:50 AM [facility] Neutrophil Absolute 8.68(H) 1.60 - 7.50 x10E9/L 07/24/2024 10:50 AM [facility] Lymphocyte Absolute 1.81 1.00 - 4.40 x10E9/L 07/24/2024 10:50 AM [facility] Monocyte Absolute 0.58 0.15 - 1.00 x10E9/L 07/24/2024 10:50 AM [facility] Eosinophil Absolute 0.21 0.00 - 0.60 x10E9/L 07/24/2024 10:50 AM [facility] Basophil Absolute 0.04 0.00 - 0.13 x10E9/L 07/24/2024 10:50 AM [facility] Blood BLOOD SPECIMEN / Unknown Venipuncture / Unknown 07/24/2024 10:39 AM SAND TEMPERER 07/24/2024 10:48 AM [facility] [[email or web address]] Andrea Rawls APNP-RAILWAY SIGNAL OPERATOR LAB - HEMATOLO GY ORDERABLES [facility] [address] [place] [address] * (ABNORMAL) COMPREHENSIVE METABOLIC PANEL (07/24/2024 10:39 AM [facility] [[email or web address] Glucose 275(H) 70 - 99 mg/dL 07/24/2024 11:03 AM [facility] Sodium 136 136 - 145 mmol/L 07/24/2024 11:03 AM [facility] Potassium 4.4 3.5 - 5.1 mmol/L 07/24/2024 11:03 AM [facility] Chloride 106 98 - 107 mmol/L 07/24/2024 11:03 AM [facility] CO2 21(L) 22 - 29 mmol/L 07/24/2024 11:03 AM [facility] Calcium 8.8 8.4 - 10.4 mg/dL 07/24/2024 11:03 AM [facility] Anion Gap 9 6 - 16 mmol/L 07/24/2024 11:03 AM [facility] BUN 14 5.3 - 18.7 mg/dL 07/24/2024 11:03 AM [facility] Creatinine 0.67 0.57 - 1.11 mg/dL 07/24/2024 11:03 AM [facility] Alkaline Phosphatase 55 40 - 150 U/L 07/24/2024 11:03 AM [facility] ALT 18 0 - 55 U/L 07/24/2024 11:03 AM [facility] AST 21 5 - 34 U/L 07/24/2024 11:03 AM [facility] Protein Total 7.1 6.4 - 8.3 gm/dL 07/24/2024 11:03 AM [facility] Albumin 3.3(L) 3.4 - 5.0 gm/dL 07/24/2024 11:03 AM [facility] Bilirubin Total 0.3 0.2 - 1.2 mg/dL 07/24/2024 11:03 AM SAND TEMPERER [facility] eGFR by CKD-EPI >90 >=90 mL/min/1.7 3 m2 07/24/2024 11:03 AM SAND TEMPERER [facility] Blood BLOOD SPECIMEN / Unknown Venipuncture / Unknown 07/24/2024 10:39 AM SAND TEMPERER 07/24/2024 10:48 AM SAND TEMPERER [facility] LAB - CHEMISTR Y ORDERABLES Performing Organization Address [facility] Co de Phone Number [facility] [address] [place] [phone] * HCG BETA BLOOD QUANTITATIVE (07/24/2024 10:39 AM SAND TEMPERER) [facility] hCG Quantitative 365.89 mIU/mL 07/24/19 11:47 AM SAND TEMPERER [facility] Blood BLOOD SPECIMEN / Unknown Venipuncture / Unknown 07/24/2024 10:39 AM SAND TEMPERER 07/24/2024 10:48 AM SAND TEMPERER Narrative [facility] - 07/24/2024 11:47 AM SAND TEMPERER hCG Reference Range, mIU/mL: Non Females 0-6.0 [...] FSH >20 IU/L makes unlikely. Andrea Doke [facility] LAB - CHEMISTR Y ORDERABLES Performing Organization Address [facility] Co de Phone Number [facility] [address] [place] [phone] * CARDIAC RHYTHM STRIP ORDER (07/22/2024 10:40 PM SAND TEMPERER) Narrative 07/22/2024 10:40 PM SAND TEMPERER Ordered by an unspecified provider. Scanned Document CARDIAC SERVICES ORD ERABLES * (ABNORMAL) GLUCOSE - POINT OF CARE (07/18/2024 1:06 PM SAND TEMPERER) Only the most recent of2 resultswithin the time period is included. Glucose WB/POC 133(H) 70 - 99 mg/dL 07/20/2024 1:56 AM SAND TEMPERER [facility] Specimen Type Cap Fingerstick 2024 1:56 AM SAND TEMPERER [facility] Blood BLOOD SPECIMEN / Unknown 07/18/2024 1:06 PM SAND TEMPERER 07/20/2024 1:56 AM SAND TEMPERER Karla Zamudio MD LAB - POINT OF CARE ORDERABLES [facility] [address] [phone] * PATHOLOGY TISSUE EXAM (STL) (07/18/2024 12:37 PM SAND TEMPERER) Case Report Surgical Pathology Report Case: [id number] Authorizing Provider: Karla Zamudio MD Collected: 07/18/2024 12:37 PM Ordering Location: [facility] Received: 07/18/2024 01:15 PM Pathologist: Kirt Billings MD Specimen: Products of Conception 07/19/2024 9:40 AM [facility] Final Diagnosis Uterine contents, dilation and curettage: Products of conception. 07/19/2024 9:40 AM [facility] Clinical History Missed 07/19/2024 9:40 AM [facility] Gross Description The specimen is identified with the patient's name and date of . Received in formalin, labeled specimen A, products of conception are multiple fragments of soft pink brasher tissue admixed with blood clot measuring 5 x 5 x 5 cm in aggregate. parts are not identified. Carport Erector sections submitted in cassette [id number]. JULIO CESAR/DAVID 07/19/2024 9:40 AM [facility] Microscopic Description Sections show immature chorionic villi and decidua. 07/19/2024 9:40 AM [facility] Pathologist Location at [facility] 07/19/2024 9:40 AM [facility] Disclaimer All histochemical and/or immunohistochemical results [...] be interpreted with caution. 07/19/2024 9:40 AM [facility] Embedded Images 07/19/2024 9:40 AM [facility] Pathology/Cytolo gy PRODUCTS OF CONCEPTION TISSUE SPECIMEN / Unknown 07/18/2024 12:37 PM SAND TEMPERER 07/18/2024 1:15 PM SAND TEMPERER Comment:Pre-op diagnosis: Diagnosis unknown [R69] Karla Zamudio MD LAB - PATHOLOGY/CYTO LOGY ORDERABLES Performing Organization Address City/State/[facility] Co de Phone Number [facility] [address] [phone] * LARYNGEAL MASK AIRWAY (07/18/2024 12:23 PM SAND TEMPERER) Narrative Alessio Fuentes APRN-CONCRETE PANEL INSTALLER - 07/18/2024 12:23 PM SAND TEMPERER Alessio Fuentes APRN-CRNA 07/18/2024 12:23 PM LMA [...] PM. Staff Section Anesthesia Provider: Alessio Fuentes APRN-CONCRETE PANEL INSTALLER Provider #1: Khoi Ortega, Performed the procedure. Lamin Llanes MD GENERAL ANESTHESIA ORDERABLES * BLOOD TYPE VERIFICATION (07/18/2024 10:25 AM SAND TEMPERER) ABO Rh O POS 07/18/2024 10:55 AM SAND TEMPERER [facility] Blood Bank BLOOD SPECIMEN / Unknown Venipuncture / Unknown 07/18/2024 10:25 AM SAND TEMPERER 07/18/2024 10:26 AM SAND TEMPERER Artemio Casanova MD LAB - BLOOD BANK ORD ERABLES Performing Organization Address [facility]/ZIP Co de Phone Number [facility] [address] [place] [address] * TSH REFLEX FREE T4 (07/16/2024 3:37 PM SAND TEMPERER) TSH 0.466 0.350 - 4.940 uIU/mL 07/16/2024 4:32 PM SAND TEMPERER [facility] Blood BLOOD SPECIMEN / Unknown Venipuncture / Unknown 07/16/2024 3:37 PM SAND TEMPERER 07/16/2024 3:51 PM SAND TEMPERER Gerber Bah MD LAB - CHEMISTRY ORDERABLES Performing Organization Address City/[facility]/ZIP Co de Phone Number [facility] [address] [place] [address] * LUPUS ANTICOAGULANT PANEL (07/16/2024 3:37 PM SAND TEMPERER) APTT 27.4 23.0 - 38.4 Seconds 07/19/2024 10:07 AM [facility] PT 12.9 12.1 - 14.8 Seconds 07/19/2024 10:07 AM [facility] INR 1.0 See Comment 07/19/2024 10:07 AM [facility] [place] Buffer 46.2 Seconds 025 10:07 AM [facility] [place] Phospholipid 40.4 Seconds 07/19/2024 10:07 AM [facility] [place] Delta 5.8 <8.0 Seconds 07/19/2024 10:07 AM [facility] Interpretation [place] Negative 07/19/2024 10:07 AM [facility] Comment:Up to 15-20% of yoel ents with [...] Unknown Venipuncture / Unknown 07/16/2024 3:37 PM SAND TEMPERER 07/16/2024 3:51 PM SAND TEMPERER Gerber Bah MD LAB - HEMATOLOG Y ORDERABLES [facility] [address] [place] [phone], [facility] [phone] * CARDIOLIPIN ANTIBODY IGG/IGM PANEL (07/16/2024 3:37 PM SAND TEMPERER) [facility] Cardiolipin Antibody IgG <9 0 - 14 GPL U/mL 07/18/2024 3:07 PM SAND TEMPERER [facility] ([facility]) Comment: Negative: <15 Indeterminate: 15 - 20 Low-Med Positive: >20 - 80 High Positive: >80 Cardiolipin Antibody IgM <9 0 - 12 MPL U/mL 07/18/2024 3:07 PM SAND TEMPERER [facility] ([facility]) Comment: Negative: <13 Indeterminate: 13 - 20 Low-Med Positive: >20 - 80 High Positive: >80 Blood BLOOD SPECIMEN / Unknown Venipuncture / Unknown 07/16/2024 3:37 PM SAND TEMPERER 07/16/2024 3:51 PM SAND TEMPERER Narrative [facility] ([facility]) - 07/18/2024 3:07 PM SAND TEMPERER Performed at: 01 - [address] [id number] Cosmetic Assembler: Ad Harris PhD, Phone: [phone] Gerber Bah MD LAB - SEROLOGY ORDERABLES Performing Organization Address [facility]/ZIP Co de Phone Number [facility] ([facility]) [address] [place] [address] * BETA-2 GLYCOPROTEIN 1 ANTIBODY IGG/IGM PANEL (07/16/2024 3:37 PM SAND TEMPERER) [facility] Beta-2 Glycoprotein I Antibody IgG <9 0 - 20 GPI IgG units 07/18/2024 2:08 PM SAND TEMPER[facility] ([facility]) Comment: The reference interval reflects a 3SD or 99th percentile interval, which is thought to represent a potentially clinically significant result in accordance with the International Consensus Statement on the classification criteria for definitive antiphospholipid syndrome (APS). J Thromb Haem 2006;4:295-306. Beta-2 Glycoprotein I Antibody IgM <9 0 - 32 GPI IgM units 07/18/2024 2:08 PM [facility] [employer] ([facility]) Comment: The reference interval reflects a 3SD or 99th percentile interval, which is thought to represent a potentially clinically significant result in accordance with the International Consensus Statement on the classification criteria for definitive antiphospholipid syndrome (APS). J Thromb Haem 2006;4:295-306. Blood BLOOD SPECIMEN / Unknown Venipuncture / Unknown 07/16/2024 3:37 PM SAND TEMPERER 07/16/2024 3:51 PM SAND TEMPERER Narrative [facility] ([facility]) - 07/18/2024 2:08 PM SAND TEMPERER Performed at: - [address] [id number] Cosmetic Assembler: Ad Harris PhD, Phone: [phone] Gerber Bah MD LAB - CHEMISTRY ORDERABLES Performing Organization Address City/[facility]/ZIP Co de Phone Number [facility] ([facility]) [address] [place] [address] * SONOGRAM - COMPLETE (07/16/2024 1:23 PM SAND TEMPERER) [facility] Linked Results Indication ======== Dating/NT Abnormal NIPT [...] discuss plan of care. Coding ====== Procedures 10311: 1st Trimester Signiant PACS Anatomical Region Laterality Modality Other 07/16/2024 1:23 PM SAND TEMPERER Augusta Leggett MD [facility] ORDERABLES * (ABNORMAL) MICROALB/CREAT RATIO URINE RANDOM PANEL (02/02/2017 2:38 PM CDT) Creatinine Urine 103.98 mg/dL 02/03/20 17 4:18 PM CDT [facility] Microalbumin Urine 3.3(H) <1.7 mg/dL 02/02/2017 4:18 PM CDT [facility] Microalbumin/Crea tinine Ratio 32(H) <30 mg/g 02/02/2017 4:18 PM CDT [facility] Urine URINE SPECIMEN OBTAINED BY CLEAN CATCH PROCEDURE / Unknown Collection / Unknown 02/02/2017 2:38 PM CDT 02/02/2017 3:10 PM CDT Deon Monteiro MD LAB - URINE CHEMISTR Y ORDERABLES [facility] [address] [place] [address] from Last 3 Months or Most Recently Relevant to Health Maintenance Care Teams Reporting Specialist Relationship Specialty Start Date End Date Gerber Betts DO [address] [place] [id number] PCP - General Family Medicine Geriatric Medicine 07/18/24
--- OUTSIDE RECORDS SUMMARY | 2024-08-19 20:24 | XMS_ITS | Patient Health Summary ---
Author Organization [facility] Address [address] [place] [address] Care Team Providers Care Bearing Ring Assembler Name Role Phone JoshsteveGerber arnold Kg LOGAN Primary Care Provider + Note from [facility],non-owned Affiliates and Associated Physician Practices is amultiple site organization consisting of ambulatory clinics and hospital sitesin [place], [place], [place] and [place]. This disclosure is being madepursuant to the Care Everywhere program and may not contain all information available regarding this patient. Last updated 18.[facility] Allergies * Morphine(Urticaria) -Medium Criticality * Codeine(Urticaria) -Medium Criticality,Inactive Medications * Be aware that medications may [...] (two) tablets by mouth once daily Active Problems Problem [...] * MENINGOCOCCAL CONJUGATE (MCV4P)(Given 12/03/2012) * MENINGOCOCCAL MCV4(Given 01/17/2019) * MMR(Given 10/04/2005, 04/20/2004, 10/27/2001, 07/30/2001) [...] medical care, and heating? Somewhat hard 07/16/2024 [facility] of Occupat ional Health - Occupational Stress [...] things needed for daily living? No 07/16/2024 [place] Depression Scale Answer Date Recorded [place] Depression Scale Total 11 07/16/2024 The thought [...] any time in the past 12 m [facility], were you homeless or living in a care home (including now)? No 07/16/2024 Estimated Date of Delivery Comme nts Yes 01/26/2025 Based on last me nstrual period of 04/21/2024 Sex and Gender Information Value Date Recorded Sex Assigned at Not on file Gender Identity Not on file Sexual Orientation Not on file Last Filed Vital Signs Vital Sign Reading Time Taken Comments Blood Pressure 124/63 07/26/2024 12:20 PM BALLOON SELLER Pulse 89 07/26/2024 12:20 PM BALLOON SELLER Temperature 36.7 C (98 F) 07/24/2024 10:06 AM BALLOON SELLER Respiratory Rate 17 07/24/2024 10:06 AM BALLOON SELLER Oxygen Saturation 99% 07/24/2024 10:06 AM BALLOON SELLER Inhaled Oxygen Concentration - - Weight 87.2 kg (192 lb 3.2 oz) 07/26/2024 12:20 PM BALLOON SELLER Height 162.6 cm (5' 4 ) 07/18/2024 10:04 AM BALLOON SELLER Body Mass Index 32.99 07/18/2024 10:04 AM BALLOON SELLER Procedures * HEMOGLOBIN A1C(Performed 07/26/2024) Performed for Controlled type 2 diabetes mellitus without complication, without long-term current use of insulin ([facility]) * US PELVIS W TRANSVAG W DOP NON OB(Performed 07/24/2024) Performed for Vaginal bleeding * TYPE + SCREEN PANEL(Performed 07/24/2024) * HCG BETA BLOOD QUANTITATIVE(Performed 07/24/2024) * COMPREHENSIVE METABOLIC PANEL(Performed 07/24/2024) * CBC W AUTO DIFFERENTIAL(Performed 07/24/2024) * CARDIAC RHYTHM STRIP ORDER(Performed 07/22/2024) * GLUCOSE - POINT OF CARE(Performed 07/18/2024) * PATHOLOGY TISSUE EXAM (STL)(Performed 07/18/2024) Performed for Diagnosis unknown * LARYNGEAL MASK AIRWAY(Performed 07/18/2024) * NE SURG RX MISSED MISCARRIAGE,1ST TRI(Performed 07/18/2024) Performed [...] long-term current use of insulin ([facility]) * MICROALB/CREAT RATIO URINE RANDOM PANEL(Performed 02/02/2017) Performed for Controlled type 2 diabetes mellitus without complication, without long-term current use of insulin ([facility]) * LIPID PROFILE(Performed 02/02/2017) Performed for Controlled type 2 diabetes mellitus without complication, without long-term current use of insulin ([facility]) * COMPREHENSIVE METABOLIC PANEL(Performed 02/02/2017) Performed for Controlled type 2 diabetes mellitus without complication, without long-term current use of insulin ([facility]) * LAB RESULTS ORDER(Performed 08/08/2016) * HEMOGLOBIN A1C - POCT (IP) BEAKER(Performed 06/28/2016) Performed for Controlled diabetes mellitus type 1 without complications ([facility]) * LAB RESULTS ORDER(Performed 04/27/2016) * URINE [...] blood sugar Results * (ABNORMAL) HEMOGLOBIN A1C (07/26/2024 1:10 PM BALLOON SELLER) Hemoglobin A1c 8.2(H) <5.7 % 07/26/2024 3:17 PM [facility] Estimated Average Glucose 189 mg/dL 07/26/2024 3:17 PM [facility] Blood BLOOD SPECIMEN / Unknown Venipuncture / Unknown 07/26/2024 1:10 PM BALLOON SELLER 07/26/2024 3:01 PM BALLOON SELLER [facility] - 07/26/2024 3:17 PM BALLOON SELLER HbA1c Interpretation: Normal: < 5.7% Pre-diabetes: 5.7-6.4% [...] Solis MD LAB - CHEMISTRY NICOLA HARTMAN [facility] [address] [place] [address] * US Pelvis W Transvag W Dop Non Ob (07/24/2024 12:42 PM BALLOON SELLER) Anatomical Region Laterality Modality Pelvis Ultrasound 07/24/2024 12:5 0 PM BALLOON SELLER Narrative 07/24/2024 12:52 PM BALLOON SELLER PROCEDURE: US PELVIS W TRANSVAG W DOP NON OB, DATE/TIME OF EXAM: 07/24/2024 12:47 PM, LOCATION [facility] INDICATION: N93.9: Abnormal uterine and vaginal [...] DATE/TIME OF EXAM: 07/24/2024 12:47 PM, LOCATION [facility] INDICATION: N93.9: Abnormal uterine and vaginal [...] TYPE + SCREEN PANEL (07/24/2024 10:39 AM BALLOON SELLER) Only the most recent of2 resultswithin the time period is included. ABO Rh O POS 07/24/2024 11:30 AM BALLOON SELLER [facility] Comment:History checked. Antibody Screen NEG 11:30 AM BALLOON SELLER [facility] Blood Bank BLOOD SPECIMEN / Unknown Venipuncture / Unknown 07/24/2024 10:39 AM BALLOON SELLER 07/24/2024 10:48 AM BALLOON SELLER Andrea SINGH-CARE MANAGER CNA LAB - BLOOD BA NK ORDERABLES [facility] [address] [place] [address] * (ABNORMAL) CBC W AUTO DIFFERENTIAL (07/24/2024 10:39 AM BALLOON SELLER) WBC 11.4(H) 4.0 - 10.7 x10E9/L 07/24/2024 10:50 AM BALLOON SELLER [facility] RBC Count 3.84(L) 3.90 - 5.20 x10E12/L 07/24/2024 10:50 AM BALLOON SELLER [facility] Hemoglobin 10.5(L) 11.9 - 15.8 g/dL 07/24/2024 10:50 AM [facility] Hematocrit 31.6(L) 34.8 - 46.1 % 07/24/2024 10:50 AM [facility] MCV 82.3 80.0 - 98.0 fL 07/24/2024 10:50 AM [facility] MCH 27.3 26.7 - 33.6 pg 07/24/2024 10:50 AM [facility] MCHC 33.2 31.7 - 36.3 g/dL 07/24/2024 10:50 AM [facility] RDW-CV 13.4 11.3 - 14.8 % 07/24/2024 10:50 AM [facility] Platelet Count 332 150 - 420 x10E9/L 07/24/2024 10:50 AM [facility] MPV 11.2 7.8 - 11.4 fL 07/24/2024 10:50 AM [facility] Neutrophil % 76.0(H) 41.0 - 74.0 % 07/24/2024 10:50 AM [facility] Lymphocyte % 15.9(L) 17.0 - 47.0 % 07/24/2024 10:50 AM [facility] Monocyte % 5.1 3.0 - 11.0 % 07/24/2024 10:50 AM [facility] Eosinophil % 1.8 0.0 - 7.0 % 07/24/2024 10:50 AM [facility] Basophil % 0.4 0.0 - 1.6 % 07/24/2024 10:50 AM [facility] Immature Granulocytes % 0.8 0.0 - 1.0 % 07/24/2024 10:50 AM [facility] Neutrophil Absolute 8.68(H) 1.60 - 7.50 x10E9/L 07/24/2024 10:50 AM [facility] Lymphocyte Absolute 1.81 1.00 - 4.40 x10E9/L 07/24/2024 10:50 AM [facility] Monocyte Absolute 0.58 0.15 - 1.00 x10E9/L 07/24/2024 10:50 AM [facility] Eosinophil Absolute 0.21 0.00 - 0.60 x10E9/L 07/24/2024 10:50 AM [facility] Basophil Absolute 0.04 0.00 - 0.13 x10E9/L 07/24/2024 10:50 AM [facility] Blood BLOOD SPECIMEN / Unknown Venipuncture / Unknown 07/24/2024 10:39 AM BALLOON SELLER 07/24/2024 10:48 AM [facility] Andrea Rawls APNP-CARE MANAGER CNA LAB - HEMATOLO GY ORDERABLES [facility] [address] [place] [address] * (ABNORMAL) COMPREHENSIVE METABOLIC PANEL (07/24/2024 10:39 AM [facility]) Only the most recent of2 resultswithin the time period is included. Glucose 275(H) 70 - 99 mg/dL 07/24/2024 11:03 AM [facility] Sodium 136 136 - 145 mmol/L 07/24/2024 11:03 AM [facility] Potassium 4.4 3.5 - 5.1 mmol/L 07/24/2024 11:03 AM [facility] Chloride 106 98 - 107 mmol/L 07/24/2024 11:03 AM [facility] CO2 21(L) 22 - 29 mmol/L 07/24/2024 11:03 AM [facility] Calcium 8.8 8.4 - 10.4 mg/dL 07/24/2024 11:03 AM [facility] Anion Gap 9 6 - 16 mmol/L 07/24/2024 11:03 AM [facility] BUN 14 5.3 - 18.7 mg/dL 07/24/2024 11:03 AM [facility] Creatinine 0.67 0.57 - 1.11 mg/dL 07/24/2024 11:03 AM [facility] Alkaline Phosphatase 55 40 - 150 U/L 07/24/2024 11:03 AM [facility] ALT 18 0 - 55 U/L 07/24/2024 11:03 AM [facility] AST 21 5 - 34 U/L 07/24/2024 11:03 AM [facility] Protein Total 7.1 6.4 - 8.3 gm/dL 07/24/2024 11:03 AM [facility] Albumin 3.3(L) 3.4 - 5.0 gm/dL 07/24/2024 11:03 AM [facility] Bilirubin Total 0.3 0.2 - 1.2 mg/dL 07/24/2024 11:03 AM [facility] eGFR by CKD-EPI >90 >=90 mL/min/1.7 3 m2 07/24/2024 11:03 AM [facility] Blood BLOOD SPECIMEN / Unknown Venipuncture / Unknown 07/24/2024 10:39 AM BALLOON SELLER 07/24/2024 10:48 AM BALLOON SELLER Andrea SINGH-CARE MANAGER CNA LAB - CHEMISTR Y ORDERABLES [facility] [address] [phone] * HCG BETA BLOOD QUANTITATIVE (07/24/2024 10:39 AM BALLOON SELLER) [facility] hCG Quantitative 365.89 mIU/mL 07/24/19 11:47 AM [facility] Blood BLOOD SPECIMEN / Unknown Venipuncture / Unknown 07/24/2024 10:39 AM BALLOON SELLER 07/24/2024 10:48 AM BALLOON SELLER Narrative [facility] - 07/24/2024 11:47 AM BALLOON SELLER hCG Reference Range, mIU/mL: Non Females 0-6.0 [...] serum FSH >20 IU/L makes unlikely. Andrea SINGH-CARE MANAGER CNA LAB - CHEMISTR Y ORDERABLES Performing Organization Address [facility] Co de Phone Number [facility] [address] [place] [address] * CARDIAC RHYTHM STRIP ORDER (07/22/2024 10:40 PM BALLOON SELLER) Narrative 07/22/2024 10:40 PM BALLOON SELLER Ordered by an unspecified provider. Scanned Document CARDIAC SERVICES ORD ERABLES * (ABNORMAL) GLUCOSE - POINT OF CARE (07/18/2024 1:06 PM BALLOON SELLER) Only the most recent of2 resultswithin the time period is included. Glucose WB/POC 133(H) 70 - 99 mg/dL 07/20/2024 1:56 AM BALLOON SELLER [facility] Specimen Type Cap Fingerstick 2024 1:56 AM BALLOON SELLER [facility] Blood BLOOD SPECIMEN / Unknown 07/18/2024 1:06 PM BALLOON SELLER 07/20/2024 1:56 AM BALLOON SELLER Karla Zamudio MD LAB - POINT OF CARE ORDERABLES Performing Organization Address [facility] Co de Phone Number [facility] [address] [place] [phone] * PATHOLOGY TISSUE EXAM (STL) (07/18/2024 12:37 PM BALLOON SELLER) Case Report Surgical Pathology Report Case: [id number] Authorizing Provider: Karla Zamudio MD Collected: 07/18/2024 12:37 PM Ordering Location: [facility] Received: 07/18/2024 01:15 PM Pathologist: Kirt Billings MD Specimen: Products of Conception 07/19/2024 9:40 AM BALLOON SELLER [facility] Final Diagnosis Uterine contents, dilation and curettage: Products of conception. 07/19/2024 9:40 AM [facility] Clinical History Missed 07/19/2024 9:40 AM BALLOON SELLER [facility] Gross Description The specimen is identified with the patient's name and date of . Received in formalin, labeled specimen A, products of conception are multiple fragments of soft pink brasher tissue admixed with blood clot measuring 5 x 5 x 5 cm in aggregate. parts are not identified. Railcar Switchman sections submitted in cassette [id number]. JULIO CESAR/DAVID 07/19/2024 9:40 AM [facility] Microscopic Description Sections show immature chorionic villi and decidua. 07/19/2024 9:40 AM [facility] Pathologist Location at [facility] 07/19/2024 9:40 AM [facility] Disclaimer All histochemical and/or immunohistochemical results are interpreted with controls that demonstrate appropriate staining reactions before reporting results. Note on use of immunocytochemistry reagents: This test was developed and its performance characteristic determined by [facility], Department of Laboratory Medicine. It [...] be interpreted with caution. 07/19/2024 9:40 AM [facility] Embedded Images 07/19/2024 9:40 AM [facility] Pathology/Cytolo gy PRODUCTS OF CONCEPTION TISSUE SPECIMEN / Unknown 07/18/2024 12:37 PM BALLOON SELLER 07/18/2024 1:15 PM BALLOON SELLER Comment:Pre-op diagnosis: Diagnosis unknown [R69] Karla Zamudio MD LAB - PATHOLOGY/CYTO LOGY ORDERABLES [facility] [address] [place] [address] * LARYNGEAL MASK AIRWAY (07/18/2024 12:23 PM BALLOON SELLER) Narrative Alessio Fuentes APRN-CRNA - 07/18/2024 12:23 PM BALLOON SELLER Alessio Fuentes APRN-CRNA 07/18/2024 12:23 PM LMA [...] PM. Staff Section Anesthesia Provider: Alessio Fuentes APRN-COMMUNITY NURSE Provider #1: Khoi Ortega, Performed the procedure. Lamin Llanes MD GENERAL ANESTHESIA ORDERABLES * BLOOD TYPE VERIFICATION (07/18/2024 10:25 AM BALLOON SELLER) ABO Rh O POS 07/18/2024 10:55 AM BALLOON SELLER [facility] Blood Bank BLOOD SPECIMEN / Unknown Venipuncture / Unknown 07/18/2024 10:25 AM BALLOON SELLER 07/18/2024 10:26 AM BALLOON SELLER Artemio Casanova MD LAB - BLOOD BANK ORD ERABLES Performing Organization Address City/[facility]/ZIP Co de Phone Number [facility] [address] [place] [address] * TSH REFLEX FREE T4 (07/16/2024 3:37 PM BALLOON SELLER) TSH 0.466 0.350 - 4.940 uIU/mL 07/16/2024 4:32 PM BALLOON SELLER [facility] Blood BLOOD SPECIMEN / Unknown Venipuncture / Unknown 07/16/2024 3:37 PM BALLOON SELLER 07/16/2024 3:51 PM BALLOON SELLER Gerber Bah MD LAB - CHEMISTRY ORDERABLES Performing Organization Address City/[facility]/ZIP Co de Phone Number [facility] [address] [place] [address] * LUPUS ANTICOAGULANT PANEL (07/16/2024 3:37 PM BALLOON SELLER) APTT 27.4 23.0 - 38.4 Seconds 07/19/2024 10:07 AM BALLOON SELLER [facility] PT 12.9 12.1 - 14.8 Seconds 07/19/2024 10:07 AM [facility] INR 1.0 See Comment 07/19/2024 10:07 [...] Unknown Venipuncture / Unknown 07/16/2024 3:37 PM BALLOON SELLER 07/16/2024 3:51 PM BALLOON SELLER Gerber Bah MD LAB - HEMATOLOG Y ORDERABLES [facility] [address] [place] [phone], [facility] [phone] * CARDIOLIPIN ANTIBODY IGG/IGM PANEL (07/16/2024 3:37 PM BALLOON SELLER) Cardiolipin Antibody IgG <9 0 - 14 GPL U/mL 07/18/2024 3:07 PM BALLOON SELLER [facility] ([facility]) Comment: Negative: <15 Indeterminate: 15 - 20 Low-Med Positive: >20 - 80 High Positive: >80 Cardiolipin Antibody IgM <9 0 - 12 MPL U/mL 07/18/2024 3:07 PM BALLOON SELLER [facility] ([facility]) Comment: Negative: <13 Indeterminate: 13 - 20 Low-Med Positive: >20 - 80 High Positive: >80 Blood BLOOD SPECIMEN / Unknown Venipuncture / Unknown 07/16/2024 3:37 PM BALLOON SELLER 07/16/2024 3:51 PM BALLOON SELLER Narrative [facility] ([facility]) - 07/18/2024 3:07 PM BALLOON SELLER Performed at: - [address] [id number] Vice President Of Recruiting: Ad Harris PhD, Phone: [phone] Gerber Bah MD LAB - SEROLOGY ORDERABLES Performing Organization Address [facility] Co de Phone Number [facility] ([facility]) [address] [place] [address] * BETA-2 GLYCOPROTEIN 1 ANTIBODY IGG/IGM PANEL (07/16/2024 3:37 PM BALLOON SELLER) [facility] Beta-2 Glycoprotein I Antibody IgG <9 0 - 20 GPI IgG units 07/18/2024 2:08 PM BALLOON SELLER [facility] ([facility]) Comment: The reference interval reflects a 3SD or 99th percentile interval, which is thought to represent a potentially clinically significant result in accordance with the International Consensus Statement on the classification criteria for definitive antiphospholipid syndrome (APS). J Thromb Haem 2006;4:295-306. Beta-2 Glycoprotein I Antibody IgM <9 0 - 32 GPI IgM units 07/18/2024 2:08 PM BALLOON SELLER [facility] ([facility]) Comment: The reference interval reflects a 3SD or 99th percentile interval, which is thought to represent a potentially clinically significant result in accordance with the International Consensus Statement on the classification criteria for definitive antiphospholipid syndrome (APS). J Thromb Haem 2006;4:295-306. Blood BLOOD SPECIMEN / Unknown Venipuncture / Unknown 07/16/2024 3:37 PM BALLOON SELLER 07/16/2024 3:51 PM BALLOON SELLER Narrative [facility] ([facility]) - 07/18/2024 2:08 PM BALLOON SELLER Performed at: - [address] [id number] Vice President Of Recruiting: Ad Harris PhD, Phone: [phone] Gerber Bah MD LAB - CHEMISTRY ORDERABLES [facility]) [address] [place] [address] * SONOGRAM - COMPLETE (07/16/2024 1:23 PM BALLOON SELLER) Linked Results Indication ======== Dating/NT Abnormal NIPT [...] discuss plan of care. Coding ====== Procedures 42689: 1st Trimester Nativoo PACS Anatomical Region Laterality Modality Other 07/16/2024 1:23 PM BALLOON SELLER Augusta Leggett MD [facility] ORDERABLES * (ABNORMAL) HEMOGLOBIN A1C - [...] POINT OF CARE ORDERABLES Performing Organization Address [facility] de Phone Number [facility] [address] [phone] * (ABNORMAL) MICROALB/CREAT RATIO URINE RANDOM PANEL [...] URINE CHEMISTR Y ORDERABLES Performing Organization Address [facility] Co de Phone Number [facility] [address] [place] [address] * (ABNORMAL) LIPID PROFILE (02/02/2017 2:38 PM CDT) Cholesterol 226(H) <170 mg/dL 02/02/2017 4:08 PM CDT [facility] Triglycerides 624(H) 46 - 227 mg/dL 02/02/2017 4:08 PM T [facility] HDL Cholesterol 35(L) >40 [...] [facility] - 02/02/2017 4:08 PM T Lipid Profile Comment: Adult references ranges are the recommendation of the [place] [employer] , for those patients >18 [...] Monteiro MD LAB - CHEMISTRY NICOLA HARTMAN [facility] Organization Address City/State/ZIP Co de Phone Number [facility] [phone] * LAB RESULTS ORDER (08/08/2016 10:54 PM BALLOON SELLER) Only the most recent of2 resultswithin the time period is included. Narrative 08/08/2016 10:54 PM BALLOON SELLER Ordered by an unspecified provider. Scanned Document LAB - THERAPEUTIC DR LINO MONITORING ORDERABLES * IA-2 ANTIBODY (04/20/2016 2:20 PM BALLOON SELLER) Pathologist [facility] Insulinoma Associated 2 Antibody <1.0 U/mL 04/24/2016 12:05 AM [facility] ([facility]) Comment: Reference Range: <1.0 Negative > or = 1.0 Positive Blood BLOOD SPECIMEN / Unknown Lab Venipuncture / Unknown 04/20/2016 2:20 PM BALLOON SELLER 04/20/2016 3:22 PM BALLOON SELLER Narrative [facility] ([facility]) - 04/24/2016 12:05 AM BALLOON SELLER Performed at: [facility] [address] [place] [phone] Vice President Of Recruiting: Silvestre Shelley MD, Phone: [phone] Deon Monteiro MD LAB - SEROLOGY ORDER ELIOT [facility] ([facility]) [address] [place] [address] * ISLET CELL ANTIBODY (04/20/2016 2:20 PM BALLOON SELLER) Pathologist [facility] Antipancreatic Islet Cells Negative Neg:<1:1 04/21/2016 4:23 PM BALLOON SELLER [facility] ([facility]) Blood BLOOD SPECIMEN / Unknown Lab Venipuncture / Unknown 04/20/2016 2:20 PM BALLOON SELLER 04/20/2016 3:22 PM BALLOON SELLER Narrative [facility] ([facility]) - 04/21/2016 4:23 PM BALLOON SELLER Performed at: [address] [place] [id number] Vice President Of Recruiting: Anthony Greco MD, Phone: [phone] Deon Monteiro MD LAB - SEROLOGY ORDER ELIOT [facility] ([facility]) [address] [place] [address] * (ABNORMAL) URINALYSIS ROUTINE AUTO (04/20/2016 2:20 PM BALLOON SELLER) Pathologist [facility] Color UA Yellow Straw, Yellow, Dark Yellow 04/20/2016 3:48 PM BALLOON SELLER [facility] Clarity UA Clear 04/20/2016 3:48 PM BALLOON SELLER [facility] Specific Temple UA >=1.030 1.005 - 1.030 04/20/2016 3:48 PM [facility] pH UA 5.5 5.0 - 8.0 pH 04/20/2016 3:48 PM [facility] Protein UA Negative Negative 04/20/2016 3:48 PM [facility] Blood UA Negative Negative 04/20/2016 3:48 PM [facility] Leukocyte UA 1+(A) Negative 04/20/2016 3:48 PM [facility] Nitrite UA Negative Negative 04/20/2016 3:48 PM [facility] Glucose UA Negative Negative 04/20/2016 3:48 PM [facility] Ketone UA Negative Negative 04/20/2016 3:48 PM [facility] Bilirubin UA Negative Negative 04/20/2016 3:48 PM [facility] Urobilinogen UA 0.2 0.1 - 1.0 EU/dL 04/20/2016 3:48 PM [facility] Urine URINE SPECIMEN OBTAINED BY CLEAN CATCH PROCEDURE / Unknown Collection / Unknown 04/20/2016 2:20 PM BALLOON SELLER 04/20/2016 2:37 PM [facility] Deon Monteiro MD LAB - URINALYSIS ORD ERABLES Performing Organization Address City/State/[facility] Co de Phone Number [facility] [place] [address] * (ABNORMAL) URINALYSIS MICROSCOPIC ONLY (04/20/2016 2:20 PM BALLOON SELLER) RBC UA 2-5 0-2, 2-5 # /hpf 04/20/2016 5:28 PM [facility] WBC UA 20-50(A) 0-2, 2-5 # /hpf 04/20/2016 5:28 PM [facility] Bacteria UA 3+(A) None Seen, Trace 04/20/2016 5:28 PM [facility] Epithelial Cell UA 10-20(A) 0-2, 2-5 # /hpf 04/20/2016 5:28 PM [facility] Mucus UA 2+ 04/20/2016 5:28 PM [facility] Urine URINE SPECIMEN OBTAINED BY CLEAN CATCH PROCEDURE / Unknown Collection / Unknown 04/20/2016 2:20 PM [facility] 04/20/2016 2:37 PM [facility] Deon Monteiro MD LAB - URINALYSIS ORD ERABLES [facility] [address] [place] [address] * (ABNORMAL) C-PEPTIDE (04/20/2016 2:20 PM [facility] SELL[facility]) C-Peptide 4.10(H) 0.78 - 1.89 ng/mL 04/20/2016 6:58 PM [facility] Blood BLOOD SPECIMEN / Unknown Lab Venipuncture / Unknown 04/20/2016 2:20 PM [facility] SELL[facility] 04/20/2016 3:22 PM [facility] SE[facility] Deon Monteiro MD LAB - CHEMISTRY ORDE RABLUCY Performing Organization Address [facility] Co de Phone Number [facility] [address] [place] [address] * (ABNORMAL) CULTURE URINE (04/20/2016 2:20 PM BALLOON SELLER) Pathologist [facility] [place] Culture 50,000-100,000 CFU/mL Streptococcus agalactiae (Group B)(A) MIGUEL 04/22/2016 8:44 AM BALLOON SELLER [facility] Urine URINE SPECIMEN OBTAINED BY CLEAN CATCH PROCEDURE / Unknown 04/20/2016 2:20 PM BALLOON SELLER 04/20/2016 5:00 PM BALLOON SELLER Narrative [facility] - 04/22/2016 8:44 AM BALLOON SELLER Susceptibility testing of penicillin, other beta-lactam antibiotics, and vancomycin is not necessary for beta-hemolytic streptococci groups A,B,C and G because resistant strains have not been recognized. Deon Monteiro MD LAB - MICROBIOLOGY O RDERABLES [facility] [address] [place] [address], [facility] [phone] * PERLA AUTO ANTIBODY (04/20/2016 2:20 PM BALLOON SELLER) PERLA-65 Antibody <5.0 0.0 - 5.0 U/mL 04/22/2016 4:20 PM [facility] ([facility]) Blood BLOOD SPECIMEN / Unknown Lab Venipuncture / Unknown 04/20/2016 2:20 PM BALLOON SELLER 04/20/2016 3:22 PM BALLOON SELLER Narrative [facility] ([facility]) - 04/22/2016 4:20 PM BALLOON SELLER Performed at: 01 - [address] [id number] Vice President Of Recruiting: Anthony Greco MD, Phone: [phone] Deon Monteiro MD LAB - SEROLOGY ORDER ELIOT [facility] ([facility]) [address] [place] [address] * (ABNORMAL) BASIC METABOLIC PANEL (CALCIUM TOTAL) (04/20/2016 2:20 PM BALLOON SELLER) Glucose 150(H) 70 - 105 mg/dL 04/20/2016 4:51 PM [facility] Sodium 138 136 - 145 mmol/L 04/20/2016 4:51 PM [facility] Potassium 4.4 3.5 - 5.1 mmol/L 04/20/2016 4:51 PM [facility] Chloride 105 98 - 107 mmol/L 04/20/2016 4:51 PM [facility] CO2 19(L) 20 - 28 mmol/L 04/20/2016 4:51 PM [facility] Calcium 10.40 9.08 - 10.48 mg/dL 04/20/2016 4:51 PM [facility] Anion Gap 14 5 - 20 mmol/L 04/20/2016 4:51 PM [facility] BUN 19.7(H) 5.3 - 18.7 mg/dL 04/20/2016 4:51 PM [facility] Creatinine 0.53(L) 0.61 - 1.07 mg/dL 04/20/2016 4:51 PM [facility] eGFR by MDRD mL/min/1. 73m2 04/20/2016 4:51 PM [facility] Comment: eGFR calculations are not performed for children under 18 years old. eGFR by MDRD mL/min/1. 73m2 04/20/2016 4:51 PM BALLOON SELLER [facility] Comment: eGFR calculations are not performed for children under 18 years old. Blood BLOOD SPECIMEN / Unknown Lab Venipuncture / Unknown 04/20/2016 2:20 PM BALLOON SELLER 04/20/2016 3:19 PM BALLOON SELLER Deon Monteiro MD LAB - CHEMISTRY NICOLA HARTMAN Performing Organization Address City/State/[facility] Co de Phone Number [facility] [address] [place] [address] Care Teams Bearing Ring Assembler Relationship Specialty Start Date End Date Gerber Betts DO [address] [place] [id number] PCP - General Family Medicine Geriatric Medicine 07/18/24
[2024-08-20 00:50] VITALS: BP 145/92; PULSE 99; RESP 18; O2SAT 100
[2024-08-20 00:53] VITALS: PULSE 99; RESP 18; O2SAT 100
--- OUTSIDE RECORDS SUMMARY | 2024-08-20 01:31 | XMS_ITS | Clinical Summary ---
Author Organization [facility] Address [address] [place] [address] Care Team Providers Care Pin Puller Name Role Phone Gerber Betts gK LOGAN Primary Care Provider + Allergies Active [...] tabletIndications: Type 2 diabetes mellitus with polyneuropathy ([facility]) Take 1 tablet daily for 2 weeks, then take 2 tablets daily there after 60 tablet 2 4 Active Active Problems Problem Noted Date Diagnosed Date Hidradenitis suppurativa 06/13/2023 Bipolar 1 disorder, depressed ([facility]) 06/13/2020 Urine test positive for microalbuminuria 017 Overview (06/13/2023): Apr 20, 2016 - spot urine microalbumin/creatinine: 36 mg/g (< 30) Jul 19, 2016 ([place], [place]): first morning voided urine microalbumin/creatinine: 23 ug/g (< 30) Last Assessment & Plan: ? Nonspecific vs early diabetic related microalbuminuria 1. Obtain first morning voided urine specimen for microalbumin/creatinine ratio (laboratory requisition given at the time of the office visit). 2. Expectant observation. 3. Return appointment in three months. 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 66 06/13/2023 8:52 AM [employer] Temperature 36.3 C (97.4 F) 06/13/2023 8:52 AM [employer] Respiratory Rate 16 06/13/2023 8:52 AM [employer]PERVIS[employer] Oxygen Saturation 97% 06/13/2023 8:52 AM [employer] Inhaled Oxygen Concentration - - Weight 87.3 kg (192 lb 6.4 oz) 06/13/2023 8:52 A M [employer] Height 162.6 cm (5' 4 ) 06/13/2023 8:52 AM [employer] Body Mass Index 33.03 06/13/2023 8:52 AM [employer]PER[employer] Plan of Treatment Health Maintenance Due Date [...] 03/21/2019, 04/12/2016, Additional history exists PHQ-2 (Physician [place]) 06/05/2024 06/13/2023 Diabetes: Retinopathy Eye Exam 08/27/2025 [...] * OUTSIDE PT/INR (SCAN ORDER) (07/22/2024) 07/22/2024 [employer] [facility] Group Scanned SCANNING Final Resu lt * OUTSIDE LAB (SCAN ORDER) (07/22/2024) 07/22/2024 [employer] Group Scanned SCANNING Final Resu lt * DIABETIC RETINOPATHY EXAM (NEGATIVE) (08/28/2023) [employer] Group Scanned SCANNING Final Resu lt [facility] * HEMOGLOBIN, GLYCOSYLATED (06/13/2023) HGB A1C 10.5 % -[place] 06/13/2023 us Gerber Betts DO LABORATORY Final Re sult [facility] [address] [place] [address], from Last 3 Months or Most Recently Relevant to Health Maintenance Insurance [place] [address] Care Teams Pin Puller Relationship Specialty Start Date End Date Gerber Betts DO [address] [place] [address] PCP - General FAMILY PRACTICE 06/13/23
--- OUTSIDE RECORDS SUMMARY | 2024-08-20 01:31 | XMS_ITS | Patient Health Summary ---
Author Organization [facility] Address [address] [place] [address] Care Team Providers Care Plant Operator Name Role Phone JoshsteveGerber arnold Kg LOGAN Primary Care Provider + Note from [facility],non-owned Affiliates and Associated Physician Practices is amultiple site organization consisting of ambulatory clinics and hospital sitesin [place], [place], [place] and [place]. This disclosure is being madepursuant to the Care Everywhere program and may not contain all information available regarding this patient. Last updated 18.[facility] Allergies * Morphine(Urticaria) -Medium Criticality * Codeine(Urticaria) [...] medical care, and heating? Somewhat hard 07/16/2024 [facility] [place] of Occupat ional Health - Occupational Stress [...] things needed for daily living? No 07/16/2024 [place] Depression Scale Answer Date Recorded [place] Depression Scale Total 11 07/16/2024 The thought [...] any time in the past 12 m [facility], were you homeless or living in [...] Comments Blood Pressure 124/63 07/26/2024 12:20 PM STARCHMAKER Pulse 89 07/26/2024 12:20 PM STARCHMAKER Temperature 36.7 C (98 F) 07/24/2024 10:06 AM STARCHMAKER Respiratory Rate 17 07/24/2024 10:06 AM STARCHMAKER Oxygen Saturation 99% 07/24/2024 10:06 AM STARCHMAKER Inhaled Oxygen Concentration - - Weight 87.2 kg (192 lb 3.2 oz) 07/26/2024 12:20 PM STARCHMAKER Height 162.6 cm (5' 4 ) 07/18/2024 10:04 AM STARCHMAKER Body Mass Index 32.99 07/18/2024 10:04 AM STARCHMAKER Procedures * HEMOGLOBIN A1C(Performed 07/26/2024) Performed for Controlled type 2 diabetes mellitus without complication, without long-term current use of insulin ([facility]) * US PELVIS W TRANSVAG W DOP [...] unknown * LARYNGEAL MASK AIRWAY(Performed 07/18/2024) * FL SURG RX MISSED MISCARRIAGE,1ST TRI(Performed 07/18/2024) Performed [...] use of insulin ([facility]) * MICROALB/CREAT RATIO URINE RANDOM PANEL(Performed 02/02/2017) Performed for Controlled type 2 diabetes mellitus without complication, without long-term current use of insulin ([facility]) * LIPID PROFILE(Performed 02/02/2017) Performed for Controlled type 2 diabetes mellitus without complication, without long-term current use of insulin ([facility]) * COMPREHENSIVE METABOLIC PANEL(Performed 02/02/2017) Performed for Controlled type 2 diabetes mellitus without complication, without long-term current use of insulin ([facility]) * LAB RESULTS ORDER(Performed 08/08/2016) * HEMOGLOBIN A1C - POCT (IP) BEAKER(Performed 06/28/2016) Performed for Controlled diabetes mellitus type 1 without complications ([facility]) * LAB RESULTS ORDER(Performed 04/27/2016) * URINE [...] * (ABNORMAL) HEMOGLOBIN A1C (07/26/2024 1:10 PM STARCHMAKER) Hemoglobin A1c 8.2(H) <5.7 % 07/26/2024 3:17 PM [facility] Estimated Average Glucose 189 mg/dL 07/26/2024 3:17 PM [facility] Blood BLOOD SPECIMEN / Unknown Venipuncture / Unknown 07/26/2024 1:10 PM STARCHMAKER 07/26/2024 3:01 PM STARCHMAKER [facility] LABORAT[facility] - 07/26/2024 3:17 PM STARCHMAKER HbA1c Interpretation: Normal: < 5.7% Pre-diabetes: 5.7-6.4% [...] Solis MD LAB - CHEMISTRY NICOLA HARTMAN [facility] [address] [place] [address] * US Pelvis W Transvag W Dop Non Ob (07/24/2024 12:42 PM STARCHMAKER) Anatomical Region Laterality Modality Pelvis Ultrasound 07/24/2024 12:5 0 PM STARCHMAKER Narrative 07/24/2024 12:52 PM STARCHMAKER PROCEDURE: US PELVIS W TRANSVAG W DOP NON OB, DATE/TIME OF EXAM: 07/24/2024 12:47 PM, LOCATION [facility] INDICATION: N93.9: Abnormal uterine and vaginal bleeding, [...] DATE/TIME OF EXAM: 07/24/2024 12:47 PM, LOCATION [facility] INDICATION: N93.9: Abnormal uterine and vaginal bleeding, [...] TYPE + SCREEN PANEL (07/24/2024 10:39 AM STARCHMAKER) Only the most recent of2 resultswithin the time period is included. ABO Rh O POS 07/24/2024 11:30 AM STARCHMAKER [facility] Comment:History checked. Antibody Screen NEG 11:30 AM STARCHMAKER [facility] BLOOD [facility] LAB Blood Bank BLOOD SPECIMEN / Unknown Venipuncture / Unknown 07/24/2024 10:39 AM STARCHMAKER 07/24/2024 10:48 AM STARCHMAKER Andrea SINGH-ADULT CAREGIVER LAB - BLOOD BA NK ORDERABLES [facility] [address] [place] [address] * (ABNORMAL) CBC W AUTO DIFFERENTIAL (07/24/2024 10:39 AM STARCHMAKER) WBC 11.4(H) 4.0 - 10.7 x10E9/L 07/24/2024 10:50 AM STARCHMAKER [facility] RBC Count 3.84(L) 3.90 - 5.20 x10E12/L 07/24/2024 10:50 AM STARCHMAKER [facility] Hemoglobin 10.5(L) 11.9 - 15.8 g/dL 07/24/2024 10:50 AM [facility] Hematocrit 31.6(L) 34.8 - 46.1 % 07/24/2024 10:50 AM [facility] MCV 82.3 80.0 - 98.0 fL 07/24/2024 10:50 AM [facility] MCH 27.3 26.7 - 33.6 pg 07/24/2024 10:50 AM [facility] MCHC 33.2 31.7 - 36.3 g/dL 07/24/2024 10:50 AM [facility] RDW-CV 13.4 11.3 - 14.8 % 07/24/2024 10:50 AM [facility] Platelet Count 332 150 - 420 x10E9/L 07/24/2024 10:50 AM [facility] MPV 11.2 7.8 - 11.4 fL 07/24/2024 10:50 AM [facility] Neutrophil % 76.0(H) 41.0 - 74.0 % 07/24/2024 10:50 AM [facility] Lymphocyte % 15.9(L) 17.0 - 47.0 % 07/24/2024 10:50 AM [facility] Monocyte % 5.1 3.0 - 11.0 % 07/24/2024 10:50 AM [facility] Eosinophil % 1.8 0.0 - 7.0 % 07/24/2024 10:50 AM [facility] Basophil % 0.4 0.0 - 1.6 % 07/24/2024 10:50 AM [facility] Immature Granulocytes % 0.8 0.0 - 1.0 % 07/24/2024 10:50 AM [facility] Neutrophil Absolute 8.68(H) 1.60 - 7.50 x10E9/L 07/24/2024 10:50 AM [facility] Lymphocyte Absolute 1.81 1.00 - 4.40 x10E9/L 07/24/2024 10:50 AM [facility] Monocyte Absolute 0.58 0.15 - 1.00 x10E9/L 07/24/2024 10:50 AM [facility] Eosinophil Absolute 0.21 0.00 - 0.60 x10E9/L 07/24/2024 10:50 AM [facility] Basophil Absolute 0.04 0.00 - 0.13 x10E9/L 07/24/2024 10:50 AM [facility] Blood BLOOD SPECIMEN / Unknown Venipuncture / Unknown 07/24/2024 10:39 AM STARCHMAKER 07/24/2024 10:48 AM [facility] Andrea Rawls APNP-ADULT CAREGIVER LAB - HEMATOLO GY ORDERABLES [facility] [address] [place] [address] * (ABNORMAL) COMPREHENSIVE METABOLIC PANEL (07/24/2024 10:39 AM [facility]) Only the most recent of2 resultswithin the time period is included. Glucose 275(H) 70 - 99 mg/dL 07/24/2024 11:03 AM [facility] Sodium 136 136 - 145 mmol/L 07/24/2024 11:03 AM [facility] Potassium 4.4 3.5 - 5.1 mmol/L 07/24/2024 11:03 AM [facility] Chloride 106 98 - 107 mmol/L 07/24/2024 11:03 AM [facility] CO2 21(L) 22 - 29 mmol/L 07/24/2024 11:03 AM [facility] Calcium 8.8 8.4 - 10.4 mg/dL 07/24/2024 11:03 AM [facility] Anion Gap 9 6 - 16 mmol/L 07/24/2024 11:03 AM [facility] BUN 14 5.3 - 18.7 mg/dL 07/24/2024 11:03 AM [facility] Creatinine 0.67 0.57 - 1.11 mg/dL 07/24/2024 11:03 AM [facility] Alkaline Phosphatase 55 40 - 150 U/L 07/24/2024 11:03 AM [facility] ALT 18 0 - 55 U/L 07/24/2024 11:03 AM [facility] AST 21 5 - 34 U/L 07/24/2024 11:03 AM [facility] Protein Total 7.1 6.4 - 8.3 gm/dL 07/24/2024 11:03 AM [facility] Albumin 3.3(L) 3.4 - 5.0 gm/dL 07/24/2024 11:03 AM [facility] Bilirubin Total 0.3 0.2 - 1.2 mg/dL 07/24/2024 11:03 AM [facility] eGFR by CKD-EPI >90 >=90 mL/min/1.7 3 m2 07/24/2024 11:03 AM [facility] Blood BLOOD SPECIMEN / Unknown Venipuncture / Unknown 07/24/2024 10:39 AM STARCHMAKER 07/24/2024 10:48 AM STARCHMAKER Andrea SINGH-ADULT CAREGIVER LAB - CHEMISTR Y ORDERABLES [facility] [address] [place] [phone] * HCG BETA BLOOD QUANTITATIVE (07/24/2024 10:39 AM STARCHMAKER) [facility] hCG Quantitative 365.89 mIU/mL 07/24/19 11:47 AM [facility] Blood BLOOD SPECIMEN / Unknown Venipuncture / Unknown 07/24/2024 10:39 AM STARCHMAKER 07/24/2024 10:48 AM STARCHMAKER Narrative [facility] - 07/24/2024 11:47 AM STARCHMAKER hCG Reference Range, mIU/mL: Non Females 0-6.0 [...] serum FSH >20 IU/L makes unlikely. Andrea SINGH-ADULT CAREGIVER LAB - CHEMISTR Y ORDERABLES Performing Organization Address [facility] Co de Phone Number [facility] [address] [place] [address] * CARDIAC RHYTHM STRIP ORDER (07/22/2024 10:40 PM STARCHMAKER) Narrative 07/22/2024 10:40 PM STARCHMAKER Ordered by an unspecified provider. Scanned Document CARDIAC SERVICES ORD ERABLES * (ABNORMAL) GLUCOSE - POINT OF CARE (07/18/2024 1:06 PM STARCHMAKER) Only the most recent of2 resultswithin the time period is included. Glucose WB/POC 133(H) 70 - 99 mg/dL 07/20/2024 1:56 AM STARCHMAKER [facility] Specimen Type Cap Fingerstick 2024 1:56 AM STARCHMAKER [facility] Blood BLOOD SPECIMEN / Unknown 07/18/2024 1:06 PM STARCHMAKER 07/20/2024 1:56 AM STARCHMAKER Karla Zamudio MD LAB - POINT OF CARE ORDERABLES Performing Organization Address [facility] Co de Phone Number [facility] [address] [place] [phone] * PATHOLOGY TISSUE EXAM (STL) (07/18/2024 12:37 PM STARCHMAKER) Case Report Surgical Pathology Report Case: [id number] Authorizing Provider: Karla Zamudio MD Collected: 07/18/2024 12:37 PM Ordering Location: [facility] PERI[facility]IVE Received: 07/18/2024 01:15 PM Pathologist: Kirt Billings MD Specimen: Products of Conception 07/19/2024 9:40 AM STARCHMAKER [facility] Final Diagnosis Uterine contents, dilation and curettage: Products of conception. 07/19/2024 9:40 AM [facility] Clinical History Missed 07/19/2024 9:40 AM STARCHMAKER [facility] Gross Description The specimen is identified with the patient's name and date of . Received in formalin, labeled specimen A, products of conception are multiple fragments of soft pink brasher tissue admixed with blood clot measuring 5 x 5 x 5 cm in aggregate. parts are not identified. Medical Coding Manager sections submitted in cassette [id number]. JULIO CESAR/DAVID 07/19/2024 9:40 AM [facility] Microscopic Description Sections show immature chorionic villi and decidua. 07/19/2024 9:40 AM [facility] Pathologist Location at [facility] 07/19/2024 9:40 AM [facility] Disclaimer All histochemical and/or immunohistochemical results are interpreted with controls that demonstrate appropriate staining reactions before reporting results. Note on use of immunocytochemistry reagents: This test was developed and its performance characteristic determined by [facility], Department of Laboratory Medicine. It [...] be interpreted with caution. 07/19/2024 9:40 AM [facility] Embedded Images 07/19/2024 9:40 AM [facility] Pathology/Cytolo gy PRODUCTS OF CONCEPTION TISSUE SPECIMEN / Unknown 07/18/2024 12:37 PM STARCHMAKER 07/18/2024 1:15 PM STARCHMAKER Comment:Pre-op diagnosis: Diagnosis unknown [R69] Karla Zamudio MD LAB - PATHOLOGY/CYTO LOGY ORDERABLES [facility] [address] [place] [address] * LARYNGEAL MASK AIRWAY (07/18/2024 12:23 PM STARCHMAKER) Narrative Alessio Fuentes APRN-CRNA - 07/18/2024 12:23 PM STARCHMAKER Alessio Fuentes APRN-CRNA 07/18/2024 12:23 PM LMA [...] PM. Staff Section Anesthesia Provider: Alessio Fuentes APRN-HOME BASED ASSISTANT Provider #1: Khoi Ortega, Performed the procedure. Lamin Llanes MD GENERAL ANESTHESIA ORDERABLES * BLOOD TYPE VERIFICATION (07/18/2024 10:25 AM STARCHMAKER) ABO Rh O POS 07/18/2024 10:55 AM STARCHMAKER [facility] Blood Bank BLOOD SPECIMEN / Unknown Venipuncture / Unknown 07/18/2024 10:25 AM STARCHMAKER 07/18/2024 10:26 AM STARCHMAKER Artemio Casanova MD LAB - BLOOD BANK ORD ERABLES Performing Organization Address City/[facility]/ZIP Co de Phone Number [facility] [address] [place] [address] * TSH REFLEX FREE T4 (07/16/2024 3:37 PM STARCHMAKER) TSH 0.466 0.350 - 4.940 uIU/mL 07/16/2024 4:32 PM STARCHMAKER [facility] Blood BLOOD SPECIMEN / Unknown Venipuncture / Unknown 07/16/2024 3:37 PM STARCHMAKER 07/16/2024 3:51 PM STARCHMAKER Gerber Bah MD LAB - CHEMISTRY ORDERABLES Performing Organization Address City/[facility]/ZIP Co de Phone Number [facility] [address] [place] [address] * LUPUS ANTICOAGULANT PANEL (07/16/2024 3:37 PM STARCHMAKER) APTT 27.4 23.0 - 38.4 Seconds 07/19/2024 10:07 AM STARCHMAKER [facility] PT 12.9 12.1 - 14.8 Seconds 07/19/2024 10:07 AM [facility] INR 1.0 See Comment 07/19/2024 10:07 AM [facility] Buffer 46.2 Seconds 025 10:07 AM [facility] [place] Phospholipid 40.4 Seconds 07/19/2024 10:07 AM [facility] [place] Delta 5.8 <8.0 Seconds 07/19/2024 10:07 AM [facility] Interpretation [place] Negative 07/19/2024 10:07 AM [facility] Comment:Up to 15-20% of yoel ents [...] Unknown Venipuncture / Unknown 07/16/2024 3:37 PM STARCHMAKER 07/16/2024 3:51 PM STARCHMAKER Gerber Bah MD LAB - HEMATOLOG Y ORDERABLES [facility] [address] [place] [phone], [facility] [phone] * CARDIOLIPIN ANTIBODY IGG/IGM PANEL (07/16/2024 3:37 PM STARCHMAKER) Cardiolipin Antibody IgG <9 0 - 14 GPL U/mL 07/18/2024 3:07 PM STARCHMAKER [facility] ([facility]) Comment: Negative: <15 Indeterminate: 15 - 20 Low-Med Positive: >20 - 80 High Positive: >80 Cardiolipin Antibody IgM <9 0 - 12 MPL U/mL 07/18/2024 3:07 PM STARCHMAKER [facility] ([facility]) Comment: Negative: <13 Indeterminate: 13 - 20 Low-Med Positive: >20 - 80 High Positive: >80 Blood BLOOD SPECIMEN / Unknown Venipuncture / Unknown 07/16/2024 3:37 PM STARCHMAKER 07/16/2024 3:51 PM STARCHMAKER Narrative [facility] ([facility]) - 07/18/2024 3:07 PM STARCHMAKER Performed at: - Lab[address] [id number] Land Leasing Examiner: Ad Harris PhD, Phone: [phone] Gerber Bah MD LAB - SEROLOGY ORDERABLES Performing Organization Address [facility] Co de Phone Number [facility] ([facility]) [address] [place] [address] * BETA-2 GLYCOPROTEIN 1 ANTIBODY IGG/IGM PANEL (07/16/2024 3:37 PM STARCHMAKER) [facility] Beta-2 Glycoprotein I Antibody IgG <9 0 - 20 GPI IgG units 07/18/2024 2:08 PM STARCHMAKER [facility] ([facility]) Comment: The reference interval reflects a 3SD or 99th percentile interval, which is thought to represent a potentially clinically significant result in accordance with the International Consensus Statement on the classification criteria for definitive antiphospholipid syndrome (APS). J Thromb Haem 2006;4:295-306. Beta-2 Glycoprotein I Antibody IgM <9 0 - 32 GPI IgM units 07/18/2024 2:08 PM STARCHMAKER [facility] ([facility]) Comment: The reference interval reflects a 3SD or 99th percentile interval, which is thought to represent a potentially clinically significant result in accordance with the International Consensus Statement on the classification criteria for definitive antiphospholipid syndrome (APS). J Thromb Haem 2006;4:295-306. Blood BLOOD SPECIMEN / Unknown Venipuncture / Unknown 07/16/2024 3:37 PM STARCHMAKER 07/16/2024 3:51 PM STARCHMAKER Narrative [facility] ([facility]) - 07/18/2024 2:08 PM STARCHMAKER Performed at: - [address] [id number] Land Leasing Examiner: Ad Harris PhD, Phone: [phone] Gerber Bah MD LAB - CHEMISTRY ORDERABLES [facility]) [address] [place] [address] * SONOGRAM - COMPLETE (07/16/2024 1:23 PM STARCHMAKER) Linked Results Indication ======== Dating/NT Abnormal NIPT [...] discuss plan of care. Coding ====== Procedures 82282: 1st Trimester MeSixty PACS Anatomical Region Laterality Modality Other 07/16/2024 1:23 PM STARCHMAKER Augusta Leggett MD [facility] ORDERABLES * (ABNORMAL) HEMOGLOBIN A1C - POCT (IP) BEAKER (02/02/2017 2:46 PM CDT) Only the most recent of3 resultswithin the time period is included. Hemoglobin A1c POCT 6.8(A) 3.4 - 6.1 % [facility] POCT TESTING QC Verified Yes Yes [facility] PO CT TESTING Blood BLOOD SPECIMEN / Unknown 02/02/2017 2:46 PM CDT Deon Monteiro MD LAB - POINT OF CARE ORDERABLES Performing Organization Address [facility] de Phone Number [facility] POCT TESTING [address] [phone] * (ABNORMAL) MICROALB/CREAT RATIO URINE RANDOM PANEL (02/02/2017 2:38 PM CDT) Only the most recent of2 resultswithin the time period is included. Creatinine Urine 103.98 mg/dL 02/03/20 17 4:18 PM CDT [facility] Microalbumin Urine 3.3(H) <1.7 mg/dL 02/02/2017 4:18 PM CDT [facility] Microalbumin/Crea tinine Ratio 32(H) <30 mg/g 02/02/2017 4:18 PM CDT [facility] Urine URINE SPECIMEN OBTAINED BY CLEAN CATCH PROCEDURE / Unknown Collection / Unknown 02/02/2017 2:38 PM CDT 02/02/2017 3:10 PM CDT Deon Monteiro MD LAB - URINE CHEMISTR Y ORDERABLES Performing Organization Address [facility] Co de Phone Number [facility] [address] [place] [address] * (ABNORMAL) LIPID PROFILE (02/02/2017 2:38 PM CDT) Cholesterol 226(H) <170 mg/dL 02/02/2017 4:08 PM CDT [facility] Triglycerides 624(H) 46 - 227 mg/dL 02/02/2017 4:08 PM T [facility] HDL Cholesterol 35(L) >40 mg/dL 7 4:08 PM T [facility] LDL Calculated 66 <100 mg/dL 02/02/2017 4:08 PM T [facility] Comment: Unable to calculate LDL due to elevated Triglycerides, please consider ordering a Direct LDL. VLDL Calculated 125(H) 12 - 38 mg/dL 02/02/2017 4:08 PM T [facility] Comment: Unable to calculate LDL due to elevated Triglycerides, please consider ordering a Direct LDL. Chol HDL Ratio 6.5(H) <=5.0 02/02/2017 4:08 PM T [facility] Blood BLOOD SPECIMEN / Unknown Venipuncture / Unknown 02/02/2017 2:38 PM CDT 02/02/2017 3:15 PM CDT Narrative [facility] - 02/02/2017 4:08 PM T Lipid Profile Comment: Adult references ranges are the recommendation of the [place] [employer] , for those patients >18 [...] Organization Address City/State/ZIP Co de Phone Number [facility] [phone] * LAB RESULTS ORDER (08/08/2016 10:54 PM STARCHMAKER) Only the most recent of2 resultswithin the time period is included. Narrative 08/08/2016 10:54 PM STARCHMAKER Ordered by an unspecified provider. Scanned Document LAB - THERAPEUTIC DR LINO MONITORING ORDERABLES * IA-2 ANTIBODY (04/20/2016 2:20 PM STARCHMAKER) Pathologist [facility] Insulinoma Associated 2 Antibody <1.0 U/mL 04/24/2016 12:05 AM [facility] ([facility]) Comment: Reference Range: <1.0 Negative > or = 1.0 Positive Blood BLOOD SPECIMEN / Unknown Lab Venipuncture / Unknown 04/20/2016 2:20 PM STARCHMAKER 04/20/2016 3:22 PM STARCHMAKER Narrative [facility] ([facility]) - 04/24/2016 12:05 AM STARCHMAKER Performed at: [facility] Endocrinology [address] [place] [id number] Land Leasing Examiner: Silvestre Shelley MD, Phone: [phone] Deon Monteiro MD LAB - SEROLOGY ORDER ELIOT [facility] ([facility]) [address] [place] [address] * ISLET CELL ANTIBODY (04/20/2016 2:20 PM STARCHMAKER) Pathologist [facility] Antipancreatic Islet Cells Negative Neg:<1:1 04/21/2016 4:23 PM STARCHMAKER [facility] ([facility]) Blood BLOOD SPECIMEN / Unknown Lab Venipuncture / Unknown 04/20/2016 2:20 PM STARCHMAKER 04/20/2016 3:22 PM STARCHMAKER Narrative [facility] ([facility]) - 04/21/2016 4:23 PM STARCHMAKER Performed at: [address] [place] [id number] Land Le[employer] Examiner: Anthoyn Greco MD, Phone: [phone] Deon Monteiro MD LAB - SEROLOGY ORDER ELIOT [facility] ([facility]) [address] [place] [address] * (ABNORMAL) URINALYSIS ROUTINE AUTO (04/20/2016 2:20 PM STARCHMAKER) Pathologist [facility] Color UA Yellow Straw, Yellow, Dark Yellow 04/20/2016 3:48 PM STARCHMAKER [facility] Clarity UA Clear 04/20/2016 3:48 PM STARCHMAKER [facility] Specific [place] UA >=1.030 1.005 - 1.030 04/20/2016 3:48 PM [facility] pH UA 5.5 5.0 - 8.0 pH 04/20/2016 3:48 PM [facility] Protein UA Negative Negative 04/20/2016 3:48 PM [facility] Blood UA Negative Negative 04/20/2016 3:48 PM [facility] Leukocyte UA 1+(A) Negative 04/20/2016 3:48 PM [facility] Nitrite UA Negative Negative 04/20/2016 3:48 PM [facility] Glucose UA Negative Negative 04/20/2016 3:48 PM [facility] Ketone UA Negative Negative 04/20/2016 3:48 PM [facility] Bilirubin UA Negative Negative 04/20/2016 3:48 PM [facility] Urobilinogen UA 0.2 0.1 - 1.0 EU/dL 04/20/2016 3:48 PM [facility] Urine URINE SPECIMEN OBTAINED BY CLEAN CATCH PROCEDURE / Unknown Collection / Unknown 04/20/2016 2:20 PM STARCHMAKER 04/20/2016 2:37 PM [facility] Deon Monteiro MD LAB - URINALYSIS ORD ERABLES Performing Organization Address City/State/[facility] Co de Phone Number [facility] [place] [address] * (ABNORMAL) URINALYSIS MICROSCOPIC ONLY (04/20/2016 2:20 PM STARCHMAKER) RBC UA 2-5 0-2, 2-5 # /hpf 04/20/2016 5:28 PM [facility] WBC UA 20-50(A) 0-2, 2-5 # /hpf 04/20/2016 5:28 PM [facility] Bacteria UA 3+(A) None Seen, Trace 04/20/2016 5:28 PM [facility] Epithelial Cell UA 10-20(A) 0-2, 2-5 # /hpf 04/20/2016 5:28 PM [facility] Mucus UA 2+ 04/20/2016 5:28 PM [facility] Urine URINE SPECIMEN OBTAINED BY CLEAN CATCH PROCEDURE / Unknown Collection / Unknown 04/20/2016 2:20 PM STARCHMAKER 04/20/2016 2:37 PM STARCHMAKER Deon Monteiro MD LAB - URINALYSIS ORD ERABLES [facility] [address] [place] [address] * (ABNORMAL) C-PEPTIDE (04/20/2016 2:20 PM STARCHMAKER) C-Peptide 4.10(H) 0.78 - 1.89 ng/mL 04/20/2016 6:58 PM STARCHMAKER [facility] Blood BLOOD SPECIMEN / Unknown Lab Venipuncture / Unknown 04/20/2016 2:20 PM STARCHMAKER 04/20/2016 3:22 PM STARCHMAKER Deon Monteiro MD LAB - CHEMISTRY ORDE RABLUCY Performing Organization Address [facility] Co de Phone Number [facility] [address] [place] [address] * (ABNORMAL) CULTURE URINE (04/20/2016 2:20 PM STARCHMAKER) Pathologist [facility] Culture 50,000-100,000 CFU/mL Streptococcus agalactiae (Group B)(A) MIGUEL 04/22/2016 8:44 AM STARCHMAKER [facility] Urine URINE SPECIMEN OBTAINED BY CLEAN CATCH PROCEDURE / Unknown 04/20/2016 2:20 PM STARCHMAKER 04/20/2016 5:00 PM STARCHMAKER Narrative [facility] - 04/22/2016 8:44 AM STARCHMAKER Susceptibility testing of penicillin, other beta-lactam antibiotics, and vancomycin is not necessary for beta-hemolytic streptococci groups A,B,C and G because resistant strains have not been recognized. Deon Monteiro MD LAB - MICROBIOLOGY O RDERABLES [facility] [address] [place] [address], [facility] [phone] * PERLA AUTO ANTIBODY (04/20/2016 2:20 PM STARCHMAKER) PERLA-65 Antibody <5.0 0.0 - 5.0 U/mL 04/22/2016 4:20 PM [facility] ([facility]) Blood BLOOD SPECIMEN / Unknown Lab Venipuncture / Unknown 04/20/2016 2:20 PM STARCHMAKER 04/20/2016 3:22 PM STARCHMAKER Narrative [facility] ([facility]) - 04/22/2016 4:20 PM STARCHMAKER Performed at: 01 - [address] [id number] Land Leasing Examiner: Anthony Greco MD, Phone: [phone] Deon Monteiro MD LAB - SEROLOGY ORDER ELIOT [facility] ([facility]) [address] [place] [address] * (ABNORMAL) BASIC METABOLIC PANEL (CALCIUM TOTAL) (04/20/2016 2:20 PM STARCHMAKER) Glucose 150(H) 70 - 105 mg/dL 04/20/2016 4:51 PM [facility] Sodium 138 136 - 145 mmol/L 04/20/2016 4:51 PM [facility] Potassium 4.4 3.5 - 5.1 mmol/L 04/20/2016 4:51 PM [facility] Chloride 105 98 - 107 mmol/L 04/20/2016 4:51 PM [facility] CO2 19(L) 20 - 28 mmol/L 04/20/2016 4:51 PM [facility] Calcium 10.40 9.08 - 10.48 mg/dL 04/20/2016 4:51 PM [facility] Anion Gap 14 5 - 20 mmol/L 04/20/2016 4:51 PM [facility] BUN 19.7(H) 5.3 - 18.7 mg/dL 04/20/2016 4:51 PM [facility] Creatinine 0.53(L) 0.61 - 1.07 mg/dL 04/20/2016 4:51 PM [facility] eGFR by MDRD mL/min/1. 73m2 04/20/2016 4:51 PM [facility] Comment: eGFR calculations are not performed for children under 18 years old. eGFR by MDRD mL/min/1. 73m2 04/20/2016 4:51 PM STARCHMAKER [facility] Comment: eGFR calculations are not performed for children under 18 years old. Blood BLOOD SPECIMEN / Unknown Lab Venipuncture / Unknown 04/20/2016 2:20 PM STARCHMAKER 04/20/2016 3:19 PM STARCHMAKER Deon Monteiro MD LAB - CHEMISTRY NICOLA HARTMAN Performing Organization Address City/State/[facility] Co de Phone Number [facility] [address] [place] [address] Care Teams Plant Operator Relationship Specialty Start Date End Date Gerber Betts DO [address] [place] [id number] PCP - General Family Medicine Geriatric Medicine 07/18/24
--- OUTSIDE RECORDS SUMMARY | 2024-08-20 01:31 | XMS_ITS | Clinical Summary ---
Author Organization [facility] Address [address] [place] [address] Care Team Providers Care Wide Area Network Systems Administrator Name Role Phone JoshsteveGerber arnold Kg LOGAN Primary Care Provider + Source Comments [facility],non-owned Affiliates and Associated Physician Practices is amultiple site organization consisting of ambulatory clinics and hospital sitesin [place], [place], [place] and [place]. This disclosure is being madepursuant to the Care Everywhere program and may not contain all information available regarding this patient. Last updated 18.[facility] Allergies Active Allergy Reactions Criticality Noted Date [...] 36 mg/g (< 30) Jul 19, 2016 ([place], [place]): first morning voided urine microalbumin/creatinine: 23 ug/g (< 30) Apr 20, 2016 - spot urine microalbumin/creatinine: 36 mg/g (< 30) Jul 19, 2016 ([facility], [place], [place]): first morning voided urine microalbumin/creatinine: 23 ug/g (< 30) Last Assessment & Plan: ? Nonspecific vs early diabetic related microalbuminuria 1. Obtain first morning voided urine specimen for microalbumin/creatinine ratio (laboratory requisition given at the time of the office visit). 2. Expectant observation. 3. Return appointment in three months. Assessment & Plan (06/29/2016 12:53 PM LOGISTICS SUPPLY OFFICER): ? Nonspecific vs early diabetic related microalbuminuria 1. Obtain first morning voided urine specimen for microalbumin/creatinine ratio (laboratory requisition given at the time of the office visit). 2. Expectant observation. 3. Return appointment in three months. Controlled type 2 diabetes bisi garcia without complication, without long-term current use of insulin 04/21/2016 Overview (06/29/2016): Apr 15, 2016 - [facility], [address] [place] [address] Na 143 mmol/L, K 4.4 mmol/L, Cl [...] months. Assessment & Plan (06/29/2016 12:48 PM LOGISTICS SUPPLY OFFICER): Good glycemic control. 1. Metformin 1000 mg bid 2. Home glucose monitoring twice daily. 3. Daily physical exercise (60 minutes daily) to promote weight loss 4. Return appointment in three months. Assessment & Plan (04/21/2016 4:13 PM LOGISTICS SUPPLY OFFICER): New onset, probably type II, diabetes mellitus. [...] mg/dL (< 130) Jul 19, 2016 - [facility] Cholesterol 151 mg/dL (140-199), triglycerides 235 mg/dL (< 150), HDL- cholesterol 37 mg/dL (> 40), LDL-cholesterol 67 (< 130) cholesterol 261 mg/dL (100-170); triglyceride 925 mg/dL (140-199), HDL- cholesterol 41 mg/dL (< 150), LDL-cholesterol mg/dL (< 130) Jul 19, 2016 - [facility] Cholesterol 151 mg/dL (140-199), triglycerides [...] sweets/fats Assessment & Plan (06/29/2016 12:45 PM LOGISTICS SUPPLY OFFICER): 1. Dietary counseling provided 2. Fasting lipid profile (laboratory requisition given at the time of the office visit). .3 Return appointment in three months. Assessment & Plan (04/21/2016 4:13 PM LOGISTICS SUPPLY OFFICER): ? Familial 1. Fasting lipid profile 2. [...] BURGOS) Assessment & Plan (06/29/2016 12:46 PM LOGISTICS SUPPLY OFFICER): ? Nonspecific elevation vs evolving BURGOS 1. Repeat serum ALT level (laboratory requisition given at the time of the office visit). 3. Expectant observation. 3. Return appointment in three months. Assessment & Plan (04/21/2016 4:14 PM LOGISTICS SUPPLY OFFICER): ? BURGOS 1. Repeat serum AST/ALT in one month. 2. Consider referral to Pediatric Gastroenterology Type 2 diabetes mellitus with polyneuropathy Overview (07/16/2024): Apr 15, 2016 - [facility], [address], [place], [place] [address] Na 143 mmol/L, K 4.4 mmol/L, Cl [...] Type Department Care Team Description 08/06/2024 Telephone [facility]/ [facility]UATION UNIT [address] [place] [address]. [address] [place] [address] Myesha Farr GC Results 07/29/2024 Telephone [facility] - ANIMAL DAYCARE PROVIDER [address] [place] [phone] Karla Zamudio MD Question 07/26/2024 12:11 PM LOGISTICS SUPPLY OFFICER - 07/26/2024 11:59 PM LOGISTICS SUPPLY OFFICER Hospital Encounter [facility] [address] [place] [address] Jered Solis MD Discharge Disposition: Home or Self Care 07/26/2024 Travel 07/25/2024 Telephone [facility] [address] [place] [address] Mercedes Tejada Scheduling 07/24/2024 11:30 AM LOGISTICS SUPPLY OFFICER - 07/24/2024 2:19 PM LOGISTICS SUPPLY OFFICER Emergency ER at [facility] [address] [place] [address] Vaginal bleeding Discharge Disposition: Home or Self Care 07/24/2024 Travel 07/24/2024 Telephone [facility] [address] [place] [address] Janice Duarte RN Vaginal Bleeding 07/18/2024 12:16 PM LOGISTICS SUPPLY OFFICER Anesthesia Event [facility] [address] [place] [address] Lamin Llanes MD 07/18/2024 12:05 PM LOGISTICS SUPPLY OFFICER - 07/18/2024 1:02 PM LOGISTICS SUPPLY OFFICER Surgery [facility] [address] [place] [address] Karla Zamudio MD SUCTION DILATION AND CURETTAGE 07/18/2024 9:32 AM LOGISTICS SUPPLY OFFICER - 07/18/2024 3:47 PM LOGISTICS SUPPLY OFFICER Hospital Encounter [facility] [address] [place] [address] Karla Zamudio MD Surgery General Discharge Disposition: Home or Self Care 07/18/2024 Travel 07/17/2024 Patient Outreach [facility] [address] [place] [address] Yazmin Blackmon, RN Care Management (Received a referral for SDOH needs. US report states no cardiac activity and pt has a scheduled D&C tomorrow. Will close this referral. ) 07/16/2024 11:34 AM LOGISTICS SUPPLY OFFICER - 07/16/2024 11:59 PM LOGISTICS SUPPLY OFFICER Hospital Encounter [facility] [address] [place] [address] Kimmy Sanderson MD Discharge Disposition: Home or Self Care 07/16/2024 11:33 AM LOGISTICS SUPPLY OFFICER Hospital Encounter [facility] [address] [place] [address] Kimmy Sanderson MD Discharge Disposition: Home or Self Care 07/16/2024 11:32 AM LOGISTICS SUPPLY OFFICER Hospital Encounter [facility] [address] [place] [address] Alphonse Quispe MD Discharge Disposition: Home or Self Care 07/16/2024 11:31 AM LOGISTICS SUPPLY OFFICER Hospital Encounter [facility] [address] [place] [address] Alphonse Quispe MD Discharge Disposition: Home or Self Care 07/16/2024 Travel 07/11/2024 Telephone [facility] [address] [place] [address] Radha Romero, aeronautical test engineer from Last 3 Months Immunizations Name Administration [...] medical care, and heating? Somewhat hard 07/16/2024 [facility] [place] of Occupat ional Health - Occupational Stress [...] needed for daily living? No 07/16/2024 [place] Depression Scale Answer Date Recorded [place] Depression Scale Total 11 07/16/2024 The thought [...] any time in the past 12 m [facility], were you homeless or living in a detention (including now)? No 07/16/2024 Estimated Date of Delivery Comme nts Yes 01/26/2025 Based on last me nstrual period of 04/21/2024 Sex and Gender Information Value Date Recorded Sex Assigned at Not on file Gender Identity Not on file Sexual Orientation Not on file Last Filed Vital Signs Vital Sign Reading Time Taken Comments Blood Pressure 124/63 07/26/2024 12:20 PM LOGISTICS SUPPLY OFFICER Pulse 89 07/26/2024 12:20 PM LOGISTICS SUPPLY OFFICER Temperature 36.7 C (98 F) 07/24/2024 10:06 AM LOGISTICS SUPPLY OFFICER Respiratory Rate 17 07/24/2024 10:06 AM LOGISTICS SUPPLY OFFICER Oxygen Saturation 99% 07/24/2024 10:06 AM LOGISTICS SUPPLY OFFICER Inhaled Oxygen Concentration - - Weight 87.2 kg (192 lb 3.2 oz) 07/26/2024 12:20 PM LOGISTICS SUPPLY OFFICER Height 162.6 cm (5' 4 ) 07/18/2024 10:04 AM LOGISTICS SUPPLY OFFICER Body Mass Index 32.99 07/18/2024 10:04 AM LOGISTICS SUPPLY OFFICER Plan of Treatment Upcoming Encounters Date Type Department Care Team (Late st Contact Info) Description 09/06/2024 2:00 PM CDT Appointment [facility] UN[facility] [address] [place] [address] Health Maintenance Due Date Last Done Comments [...] Comments HEMOGLOBIN A1C Routine 07/26/2024 1:10 PM LOGISTICS SUPPLY OFFICER Controlled type 2 diabetes mellitus without complication, without long-term current use of insulin (HCC) US PELVIS W TRANSVAG W DOP NON OB STAT 07/24/2024 12:42 PM LOGISTICS SUPPLY OFFICER Vaginal bleeding TYPE + SCREEN PANEL STAT 07/24/2024 1 0:39 AM LOGISTICS SUPPLY OFFICER HCG BETA BLOOD QUANTITATIVE STAT 07/24/2024 10:39 AM LOGISTICS SUPPLY OFFICER COMPREHENSIVE METABOLIC PANEL STAT 07/24/2024 10:39 AM LOGISTICS SUPPLY OFFICER CBC W AUTO DIFFERENTIAL STAT 07/24/2024 10:39 AM LOGISTICS SUPPLY OFFICER CARDIAC RHYTHM STRIP ORDER 07/22/2024 10:40 PM LOGISTICS SUPPLY OFFICER GLUCOSE - POINT OF CARE Routine 07/18/2024 1:06 PM LOGISTICS SUPPLY OFFICER PATHOLOGY TISSUE EXAM (STL) Routine 07/18/2024 12:37 PM LOGISTICS SUPPLY OFFICER Diagnosis unknown LARYNGEAL MASK AIRWAY Routine 07/18/2024 12:23 PM LOGISTICS SUPPLY OFFICER AR SURG RX MISSED MISCARRIAGE,1ST TRI 07/18/2024 11:49 AM LOGISTICS SUPPLY OFFICER Diagnosis unknown BLOOD TYPE VERIFICATION Routine 07/18/2024 10:25 AM LOGISTICS SUPPLY OFFICER Pre-op testing TYPE + SCREEN PANEL BERONICA 07/18/2024 1 0:19 AM LOGISTICS SUPPLY OFFICER Pre-op testing GLUCOSE - POINT OF CARE Routine 07/18/2024 10:18 AM LOGISTICS SUPPLY OFFICER BETA-2 GLYCOPROTEIN 1 ANTIBODY IGG/IGM PANEL Routine 07/16/2024 3:37 PM LOGISTICS SUPPLY OFFICER Recurrent loss without current CARDIOLIPIN ANTIBODY IGG/IGM PANEL Routine 07/16/2024 3:37 PM LOGISTICS SUPPLY OFFICER Recurrent loss without current LUPUS ANTICOAGULANT PANEL Routine 07/16/2024 3:37 PM LOGISTICS SUPPLY OFFICER Recurrent loss without current TSH REFLEX FREE T4 Routine 07/16/2024 3: 37 PM LOGISTICS SUPPLY OFFICER Recurrent loss without current SONOGRAM - COMPLETE Routine 07/16/2024 1 :23 PM LOGISTICS SUPPLY OFFICER MICROALB/CREAT RATIO URINE RANDOM PANEL Routine 02/02/2017 2:38 PM CDT Controlled type 2 diabetes mellitus without complication, without long-term current use of insulin (HCC) from Last 3 Months or Most Recently Relevant to Health Maintenance Results * (ABNORMAL) HEMOGLOBIN A1C (07/26/2024 1:10 PM LOGISTICS SUPPLY OFFICER) [facility] Hemoglobin A1c 8.2(H) <5.7 % 07/26/2024 3:17 PM LOGISTICS SUPPLY OFFICER [facility] Estimated Average Glucose 189 mg/dL 07/26/2024 3:[address] [facility] Blood BLOOD SPECIMEN / Unknown Venipuncture / Unknown 07/26/2024 1:10 PM LOGISTICS SUPPLY OFFICER 07/26/2024 3:01 PM LOGISTICS SUPPLY OFFICER [facility] - 07/26/2024 3:17 PM LOGISTICS SUPPLY OFFICER HbA1c Interpretation: Normal: < 5.7% Pre-diabetes: 5.7-6.4% [...] Solis MD LAB - CHEMISTRY [facility] Organization Address City/State/[facility] Co de Phone Number [facility] [address] [phone] * US Pelvis W Transvag W Dop Non Ob (07/24/2024 12:42 PM LOGISTICS SUPPLY OFFICER) Anatomical Region Laterality Modality Pelvis Ultrasound 07/24/2024 12:5 0 PM LOGISTICS SUPPLY OFFICER Narrative 07/24/2024 12:52 PM LOGISTICS SUPPLY OFFICER PROCEDURE: US PELVIS W TRANSVAG W DOP [...] TYPE + SCREEN PANEL (07/24/2024 10:39 AM LOGISTICS SUPPLY OFFICER) Only the most recent of2 resultswithin the time period is included. Pathologist [facility] ABO Rh O POS 07/24/2024 11:30 AM LOGISTICS SUPPLY OFFICER [facility] Comment:History checked. Antibody Screen NEG 11:30 AM LOGISTICS SUPPLY OFFICER [facility] Blood Bank BLOOD SPECIMEN / Unknown Venipuncture / Unknown 07/24/2024 10:39 AM LOGISTICS SUPPLY OFFICER 07/24/2024 10:48 AM LOGISTICS SUPPLY OFFICER Andrea SINGH-CUSTOMER EXPERIENCE SPECIALIST LAB - BLOOD BA NK ORDERABLES [facility] [address] [phone] * (ABNORMAL) CBC W AUTO DIFFERENTIAL (07/24/2024 10:39 AM LOGISTICS SUPPLY OFFICER) Pathologist [facility] WBC 11.4(H) 4.0 - 10.7 x10E9/L 07/24/2024 10:50 AM LOGISTICS SUPPLY OFFICER [facility] RBC Count 3.84(L) 3.90 - 5.20 x10E12/L 07/24/2024 10:[address] [facility] Hemoglobin 10.5(L) 11.9 - 15.8 g/dL 07/24/2024 10:[address] [facility] Hematocrit 31.6(L) 34.8 - 46.1 % 07/24/2024 10:[address] [facility] MCV 82.3 80.0 - 98.0 fL 07/24/2024 10:[address] [facility] MCH 27.3 26.7 - 33.6 pg 07/24/2024 10:[address] [facility] MCHC 33.2 31.7 - 36.3 g/dL 07/24/2024 10:[address] [facility] RDW-CV 13.4 11.3 - 14.8 % 07/24/2024 10:[address] [facility] Platelet Count 332 150 - 420 x10E9/L 07/24/2024 10:[address] [facility] MPV 11.2 7.8 - 11.4 fL 07/24/2024 10:[address] [facility] Neutrophil % 76.0(H) 41.0 - 74.0 % 07/24/2024 10:[address] [facility] Lymphocyte % 15.9(L) 17.0 - 47.0 % 07/24/2024 10:[address] [facility] Monocyte % 5.1 3.0 - 11.0 % 07/24/2024 10:[address] [facility] Eosinophil % 1.8 0.0 - 7.0 % 07/24/2024 10:[address] [facility] Basophil % 0.4 0.0 - 1.6 % 07/24/2024 10:[address] [facility] Immature Granulocytes % 0.8 0.0 - 1.0 % 07/24/2024 10:[address] [facility] Neutrophil Absolute 8.68(H) 1.60 - 7.50 x10E9/L 07/24/2024 10:[address] [facility] Lymphocyte Absolute 1.81 1.00 - 4.40 x10E9/L 07/24/2024 10:[address] [facility] Monocyte Absolute 0.58 0.15 - 1.00 x10E9/L 07/24/2024 10:[address] [facility] Eosinophil Absolute 0.21 0.00 - 0.60 x10E9/L 07/24/2024 10:[address] [facility] Basophil Absolute 0.04 0.00 - 0.13 x10E9/L 07/24/2024 10:[address] [facility] Blood BLOOD SPECIMEN / Unknown Venipuncture / Unknown 07/24/2024 10:39 AM LOGISTICS SUPPLY OFFICER 07/24/2024 10:48 AM [facility] Andrea Rawls APNP-CUSTOMER EXPERIENCE SPECIALIST LAB - HEMATOLO GY ORDERABLES [facility] [address] [place] [address] * (ABNORMAL) COMPREHENSIVE METABOLIC PANEL (07/24/2024 10:39 AM [facility]) Glucose 275(H) 70 - 99 mg/dL 07/24/2024 11:[address] [facility] Sodium 136 136 - 145 mmol/L 07/24/2024 11:[address] [facility] Potassium 4.4 3.5 - 5.1 mmol/L 07/24/2024 11:[address] [facility] Chloride 106 98 - 107 mmol/L 07/24/2024 11:[address] [facility] CO2 21(L) 22 - 29 mmol/L 07/24/2024 11:[address] [facility] Calcium 8.8 8.4 - 10.4 mg/dL 07/24/2024 11:[address] [facility] Anion Gap 9 6 - 16 mmol/L 07/24/2024 11:[address] [facility] BUN 14 5.3 - 18.7 mg/dL 07/24/2024 11:[address] [facility] Creatinine 0.67 0.57 - 1.11 mg/dL 07/24/2024 11:[address] [facility] Alkaline Phosphatase 55 40 - 150 U/L 07/24/2024 11:[address] [facility] ALT 18 0 - 55 U/L 07/24/2024 11:[address] [facility] AST 21 5 - 34 U/L 07/24/2024 11:[address] [facility] Protein Total 7.1 6.4 - 8.3 gm/dL 07/24/2024 11:[address] [facility] Albumin 3.3(L) 3.4 - 5.0 gm/dL 07/24/2024 11:[address] [facility] Bilirubin Total 0.3 0.2 - 1.2 mg/dL 07/24/2024 11:03 AM LOGISTICS SUPPLY OFFICER [facility] eGFR by CKD-EPI >90 >=90 mL/min/1.7 3 m2 07/24/2024 11:03 AM LOGISTICS SUPPLY OFFICER [facility] Blood BLOOD SPECIMEN / Unknown Venipuncture / Unknown 07/24/2024 10:39 AM LOGISTICS SUPPLY OFFICER 07/24/2024 10:48 AM LOGISTICS SUPPLY OFFICER [facility] LAB - CHEMISTR Y ORDERABLES Performing Organization Address [facility] Co de Phone Number [facility] [address] [place] [phone] * HCG BETA BLOOD QUANTITATIVE (07/24/2024 10:39 AM LOGISTICS SUPPLY OFFICER) [facility] hCG Quantitative 365.89 mIU/mL 07/24/19 11:47 AM LOGISTICS SUPPLY OFFICER [facility] Blood BLOOD SPECIMEN / Unknown Venipuncture / Unknown 07/24/2024 10:39 AM LOGISTICS SUPPLY OFFICER 07/24/2024 10:48 AM LOGISTICS SUPPLY OFFICER Narrative [facility] - 07/24/2024 11:47 AM LOGISTICS SUPPLY OFFICER hCG Reference Range, mIU/mL: Non Females 0-6.0 [...] FSH >20 IU/L makes unlikely. Andrea Doke [facility] LAB - CHEMISTR Y ORDERABLES Performing Organization Address [facility] Co de Phone Number [facility] [address] [place] [phone] * CARDIAC RHYTHM STRIP ORDER (07/22/2024 10:40 PM LOGISTICS SUPPLY OFFICER) Narrative 07/22/2024 10:40 PM LOGISTICS SUPPLY OFFICER Ordered by an unspecified provider. Scanned Document CARDIAC SERVICES ORD ERABLES * (ABNORMAL) GLUCOSE - POINT OF CARE (07/18/2024 1:06 PM LOGISTICS SUPPLY OFFICER) Only the most recent of2 resultswithin the time period is included. Glucose WB/POC 133(H) 70 - 99 mg/dL 07/20/2024 1:56 AM LOGISTICS SUPPLY OFFICER [facility] Specimen Type Cap Fingerstick 2024 1:56 AM LOGISTICS SUPPLY OFFICER [facility] Blood BLOOD SPECIMEN / Unknown 07/18/2024 1:06 PM LOGISTICS SUPPLY OFFICER 07/20/2024 1:56 AM LOGISTICS SUPPLY OFFICER Karla Zamudio MD LAB - POINT OF CARE ORDERABLES [facility] [address] [phone] * PATHOLOGY TISSUE EXAM (STL) (07/18/2024 12:37 PM LOGISTICS SUPPLY OFFICER) Case Report Surgical Pathology Report Case: [id number] Authorizing Provider: Karla Zamudio MD Collected: 07/18/2024 12:37 PM Ordering Location: [facility] Received: 07/18/2024 01:15 PM Pathologist: Kirt Billings MD Specimen: Products of Conception 07/19/2024 9:[address] [facility] Final Diagnosis Uterine contents, dilation and curettage: Products of conception. 07/19/2024 9:[address] [facility] Clinical History Missed 07/19/2024 9:[address] [facility] Gross Description The specimen is identified with the patient's name and date of . Received in formalin, labeled specimen A, products of conception are multiple fragments of soft pink brasher tissue admixed with blood clot measuring 5 x 5 x 5 cm in aggregate. parts are not identified. Manager Of Corporate Communications sections submitted in cassette [id number]. JULIO CESAR/DAVID 07/19/2024 9:[address] [facility] Microscopic Description Sections show immature chorionic villi and decidua. 07/19/2024 9:[address] [facility] Pathologist Location at [facility] 07/19/2024 9:[address] [facility] Disclaimer All histochemical and/or immunohistochemical results are interpreted with controls that demonstrate appropriate staining reactions before reporting results. Note on use of immunocytochemistry reagents: This test was developed and its performance characteristic determined by [facility], Department of Laboratory Medicine. It has [...] be interpreted with caution. 07/19/2024 9:[address] [facility] Embedded Images 07/19/2024 9:[address] [facility] Pathology/Cytolo gy PRODUCTS OF CONCEPTION TISSUE SPECIMEN / Unknown 07/18/2024 12:37 PM LOGISTICS SUPPLY OFFICER 07/18/2024 1:15 PM LOGISTICS SUPPLY OFFICER Comment:Pre-op diagnosis: Diagnosis unknown [R69] Karla Zamudio MD LAB - PATHOLOGY/CYTO LOGY ORDERABLES Performing Organization Address City/State/[facility] Co de Phone Number [facility] [address] [phone] * LARYNGEAL MASK AIRWAY (07/18/2024 12:23 PM LOGISTICS SUPPLY OFFICER) Narrative Alessio Fuentes APRN-FISH SEINER - 07/18/2024 12:23 PM LOGISTICS SUPPLY OFFICER Alessio Fuentes APRN-CRNA 07/18/2024 12:23 PM [facility] [...] PM. Staff Section Anesthesia Provider: Alessio Fuentes APRN-FISH SEINER Provider #1: Khoi Ortega, Performed the procedure. Lamin Llanes MD GENERAL ANESTHESIA ORDERABLES * BLOOD TYPE VERIFICATION (07/18/2024 10:25 AM LOGISTICS SUPPLY OFFICER) ABO Rh O POS 07/18/2024 10:55 AM LOGISTICS SUPPLY OFFICER [facility] Blood Bank BLOOD SPECIMEN / Unknown Venipuncture / Unknown 07/18/2024 10:25 AM LOGISTICS SUPPLY OFFICER 07/18/2024 10:26 AM LOGISTICS SUPPLY OFFICER Artemio Casanova MD LAB - BLOOD BANK ORD ERABLES Performing Organization Address [facility]/ZIP Co de Phone Number [facility] [address] [place] [address] * TSH REFLEX FREE T4 (07/16/2024 3:37 PM LOGISTICS SUPPLY OFFICER) TSH 0.466 0.350 - 4.940 uIU/mL 07/16/2024 4:32 PM LOGISTICS SUPPLY OFFICER [facility] Blood BLOOD SPECIMEN / Unknown Venipuncture / Unknown 07/16/2024 3:37 PM LOGISTICS SUPPLY OFFICER 07/16/2024 3:51 PM LOGISTICS SUPPLY OFFICER Gerber Bah MD LAB - CHEMISTRY ORDERABLES Performing Organization Address City/[facility]/ZIP Co de Phone Number [facility] [address] [place] [address] * LUPUS ANTICOAGULANT PANEL (07/16/2024 3:37 PM LOGISTICS SUPPLY OFFICER) APTT 27.4 23.0 - 38.4 Seconds 07/19/2024 10:07 AM [facility] PT 12.9 12.1 - 14.8 Seconds 07/19/2024 10:07 AM [facility] H[facility] INR 1.0 See Comment 07/19/2024 10:07 AM [facility] Buffer 46.2 Seconds 025 10:07 AM [facility] Phospholipid 40.4 Seconds 07/19/2024 10:07 [...] Unknown Venipuncture / Unknown 07/16/2024 3:37 PM LOGISTICS SUPPLY OFFICER 07/16/2024 3:51 PM LOGISTICS SUPPLY OFFICER Gerber Bah MD LAB - HEMATOLOG Y ORDERABLES [facility] [address] [place] [id number], [facility] [phone] * CARDIOLIPIN ANTIBODY IGG/IGM PANEL (07/16/2024 3:37 PM LOGISTICS SUPPLY OFFICER) [facility] Cardiolipin Antibody IgG <9 0 - 14 GPL U/mL 07/18/2024 3:07 PM LOGISTICS SUPPLY OFFICER [facility] ([facility]) Comment: Negative: <15 Indeterminate: 15 - 20 Low-Med Positive: >20 - 80 High Positive: >80 Cardiolipin Antibody IgM <9 0 - 12 MPL U/mL 07/18/2024 3:07 PM LOGISTICS SUPPLY OFFICER [facility] ([facility]) Comment: Negative: <13 Indeterminate: 13 - 20 Low-Med Positive: >20 - 80 High Positive: >80 Blood BLOOD SPECIMEN / Unknown Venipuncture / Unknown 07/16/2024 3:37 PM LOGISTICS SUPPLY OFFICER 07/16/2024 3:51 PM LOGISTICS SUPPLY OFFICER Narrative [facility] ([facility]) - 07/18/2024 3:07 PM LOGISTICS SUPPLY OFFICER Performed at: 01 - [address] [id number] Switchboard Operator: Ad Harris PhD, Phone: [phone] Gerber Bah MD LAB - SEROLOGY ORDERABLES Performing Organization Address [facility]/ZIP Co de Phone Number [facility] ([facility]) [address] [place] [address] * BETA-2 GLYCOPROTEIN 1 ANTIBODY IGG/IGM PANEL (07/16/2024 3:37 PM LOGISTICS SUPPLY OFFICER) [facility] Beta-2 Glycoprotein I Antibody IgG <9 0 - 20 GPI IgG units 07/18/2024 2:08 PM LOGISTICS SUPPLY OFFICER [facility] ([facility]) Comment: The reference interval reflects a 3SD or 99th percentile interval, which is thought to represent a potentially clinically significant result in accordance with the International Consensus Statement on the classification criteria for definitive antiphospholipid syndrome (APS). J Thromb Haem 2006;4:295-306. Beta-2 Glycoprotein I Antibody IgM <9 0 - 32 GPI IgM units 07/18/2024 2:08 PM LOGISTICS SUPPLY OFFICER [facility] ([facility]) Comment: The reference interval reflects a 3SD or 99th percentile interval, which is thought to represent a potentially clinically significant result in accordance with the International Consensus Statement on the classification criteria for definitive antiphospholipid syndrome (APS). J Thromb Haem 2006;4:295-306. Blood BLOOD SPECIMEN / Unknown Venipuncture / Unknown 07/16/2024 3:37 PM LOGISTICS SUPPLY OFFICER 07/16/2024 3:51 PM LOGISTICS SUPPLY OFFICER Narrative [facility] ([facility]) - 07/18/2024 2:08 PM LOGISTICS SUPPLY OFFICER Performed at: - [address] [id number] Switchboard Operator: Ad Harris PhD, Phone: [phone] Gerebr Bah MD LAB - CHEMISTRY ORDERABLES Performing Organization Address City/[facility]/ZIP Co de Phone Number [facility] ([facility]) [address] [place] [address] * SONOGRAM - COMPLETE (07/16/2024 1:23 PM LOGISTICS SUPPLY OFFICER) [facility] Linked Results Indication ======== Dating/NT Abnormal [...] discuss plan of care. Coding ====== Procedures 03284: 1st Trimester [employer] PACS Anatomical Region Laterality Modality Other 07/16/2024 1:23 PM LOGISTICS SUPPLY OFFICER Augusta Leggett MD [facility] ORDERABLES * (ABNORMAL) MICROALB/CREAT RATIO URINE RANDOM PANEL (02/02/2017 2:38 PM CDT) Creatinine Urine 103.98 mg/dL 02/03/20 17 4:18 PM CDT [facility] Microalbumin Urine 3.3(H) <1.7 mg/dL 02/02/2017 4:18 PM CDT [facility] Microalbumin/Crea tinine Ratio 32(H) <30 mg/g 02/02/2017 4:18 PM CDT [facility] Urine URINE SPECIMEN OBTAINED BY CLEAN CATCH PROCEDURE / Unknown Collection / Unknown 02/02/2017 2:38 PM CDT 02/02/2017 3:10 PM CDT Deon Monteiro MD LAB - URINE CHEMISTR Y ORDERABLES [facility] [address] [place] [address] from Last 3 Months or Most Recently Relevant to Health Maintenance Care Teams Wide Area Network Systems Administrator Relationship Specialty Start Date End Date Gerber Betts DO [address] [place] [id number] PCP - General Family Medicine Geriatric Medicine 07/18/24
--- OUTSIDE RECORDS SUMMARY | 2024-08-20 01:31 | XMS_ITS | Referral Summary ---
Author Organization [facility] Address [address] [place] [address] Care Team Providers Care Financial Intern Name Role Phone Gerber Betts Kg LOGAN Primary Care Provider + Source Comments [facility],non-owned Affiliates and Associated Physician Practices is amultiple site organization consisting of ambulatory clinics and hospital sitesin [place], [place], [place] and [place]. This disclosure is being madepursuant to the Care Everywhere program and may not contain all information available regarding this patient. Last updated 18.[facility] Encounters Date Type Department Care Team Description 08/06/2024 Telephone [facility] [address] [place] [address] Myesha Farr GC Results 07/29/2024 Telephone [facility] [address] [place] [id number] Karla Zamudio MD Question 07/26/2024 Travel 07/26/2024 12:11 PM GLASS DESIGNER - 07/26/2024 11:59 PM GLASS DESIGNER Hospital Encounter [facility] [address] [place] [address] Jered Solis MD Discharge Disposition: Home or Self Care 07/25/2024 Telephone [facility] [address] [place] [address] Mercedes Tejada Scheduling 07/24/2024 Travel 07/24/2024 11:30 AM GLASS DESIGNER - 07/24/2024 2:19 PM GLASS DESIGNER Emergency ER at [facility] [address] [place] [address] Vaginal bleeding Discharge Disposition: Home or Self Care 07/24/2024 Telephone [facility] [address] [place] [address] Janice Duarte RN Vaginal Bleeding 07/18/2024 Travel 07/18/2024 12:16 PM GLASS DESIGNER Anesthesia Event [facility] [address] [place] [address] Lamin Llanes MD 07/18/2024 12:05 PM GLASS DESIGNER - 07/18/2024 1:02 PM GLASS DESIGNER Surgery [facility] [address] [place] [address] Karla Zamudio MD SUCTION DILATION AND CURETTAGE 07/18/2024 9:32 AM GLASS DESIGNER - 07/18/2024 3:47 PM GLASS DESIGNER Hospital Encounter [facility] [address] [place], [place] [id number] Karla Zamudio MD Surgery General Discharge Disposition: Home or Self Care 07/17/2024 Patient Outreach [facility] [address] [place] [address] [address] [place] [address] Yazmin Blackmon RN Care Management (Received a referral for SDOH needs. US report states no cardiac activity and pt has a scheduled D&C tomorrow. Will close this referral. ) 07/16/2024 Travel 07/16/2024 11:31 AM GLASS DESIGNER Hospital Encounter [facility] [address] [place] [address] [address] [place] [address] Alphonse Quispe MD Discharge Disposition: Home or Self Care 07/16/2024 11:34 AM GLASS DESIGNER - 07/16/2024 11:59 PM GLASS DESIGNER Hospital Encounter [facility] [address] [place] [address] [address] [place] [address] Kimmy Sanderson MD Discharge Disposition: Home or Self Care 07/16/2024 11:32 AM GLASS DESIGNER Hospital Encounter [facility] [address] [facility] [address] [place] [address] Alphonse Quispe MD Discharge Disposition: Home or Self Care 07/16/2024 11:33 AM GLASS DESIGNER Hospital Encounter [facility] [address] [place] [address] Kimmy Sanderson MD Discharge Disposition: Home or Self Care 07/11/2024 Telephone [facility] [address] [place] [address] Radha Romero, shackler from Last 3 Months Allergies Active Allergy [...] 36 mg/g (< 30) Jul 19, 2016 ([place], [place]): first morning voided urine microalbumin/creatinine: 23 ug/g (< 30) Apr 20, 2016 - spot urine microalbumin/creatinine: 36 mg/g (< 30) Jul 19, 2016 ([place], [place]): first morning voided urine microalbumin/creatinine: 23 ug/g (< 30) Last Assessment & Plan: ? Nonspecific vs early diabetic related microalbuminuria 1. Obtain first morning voided urine specimen for microalbumin/creatinine ratio (laboratory requisition given at the time of the office visit). 2. Expectant observation. 3. Return appointment in three months. Assessment & Plan (06/29/2016 12:53 PM GLASS DESIGNER): ? Nonspecific vs early diabetic related microalbuminuria 1. Obtain first morning voided urine specimen for microalbumin/creatinine ratio (laboratory requisition given at the time of the office visit). 2. Expectant observation. 3. Return appointment in three months. Controlled type 2 diabetes bisi garcia without complication, without long-term current use of insulin 04/21/2016 Overview (06/29/2016): Apr 15, 2016 - [facility], [address] [place], [place] [address] Na 143 mmol/L, K 4.4 mmol/L, Cl [...] months. Assessment & Plan (06/29/2016 12:48 PM GLASS DESIGNER): Good glycemic control. 1. Metformin 1000 mg bid 2. Home glucose monitoring twice daily. 3. Daily physical exercise (60 minutes daily) to promote weight loss 4. Return appointment in three months. Assessment & Plan (04/21/2016 4:13 PM GLASS DESIGNER): New onset, probably type II, diabetes mellitus. [...] 130) Jul 19, 2016 - [facility] Cholesterol 151 mg/dL (140-199), triglycerides 235 mg/dL (< 150), HDL- cholesterol 37 mg/dL (> 40), LDL-cholesterol 67 (< 130) cholesterol 261 mg/dL (100-170); triglyceride 925 mg/dL (140-199), HDL- cholesterol 41 mg/dL (< 150), LDL-cholesterol mg/dL (< 130) Jul 19, 2016 - [facility] Cholesterol 151 mg/dL (140-199), triglycerides [...] sweets/fats Assessment & Plan (06/29/2016 12:45 PM GLASS DESIGNER): 1. Dietary counseling provided 2. Fasting lipid profile (laboratory requisition given at the time of the office visit). .3 Return appointment in three months. Assessment & Plan (04/21/2016 4:13 PM GLASS DESIGNER): ? Familial 1. Fasting lipid profile 2. [...] BURGOS) Assessment & Plan (06/29/2016 12:46 PM GLASS DESIGNER): ? Nonspecific elevation vs evolving BURGOS 1. Repeat serum ALT level (laboratory requisition given at the time of the office visit). 3. Expectant observation. 3. Return appointment in three months. Assessment & Plan (04/21/2016 4:14 PM GLASS DESIGNER): ? BURGOS 1. Repeat serum AST/ALT in one month. 2. Consider referral to Pediatric Gastroenterology Type 2 diabetes mellitus with polyneuropathy Overview (07/16/2024): Apr 15, 2016 - [facility], [address] [place], [place] [address] Na 143 mmol/L, K 4.4 mmol/L, Cl [...] medical care, and heating? Somewhat hard 07/16/2024 [facility] [place] of Occupat ional Health - Occupational Stress [...] things needed for daily living? No 07/16/2024 [place] Depression Scale Answer Date Recorded [place] Depression Scale Total 11 07/16/2024 The thought [...] any time in the past 12 m [facility], were you homeless or living in a prison (including now)? No 07/16/2024 Estimated Date of Delivery Comme nts Yes 01/26/2025 Based on last mi nstrual period of 04/21/2024 Sex and Gender Information Value Date Recorded Sex Assigned at Not on file Gender Identity Not on file Sexual Orientation Not on file Last Filed Vital Signs Vital Sign Reading Time Taken Comments Blood Pressure 124/63 07/26/2024 12:20 PM GLASS DESIGNER Pulse 89 07/26/2024 12:20 PM GLASS DESIGNER Temperature 36.7 C (98 F) 07/24/2024 10:06 AM GLASS DESIGNER Respiratory Rate 17 07/24/2024 10:06 AM GLASS DESIGNER Oxygen Saturation 99% 07/24/2024 10:06 AM GLASS DESIGNER Inhaled Oxygen Concentration - - Weight 87.2 kg (192 lb 3.2 oz) 07/26/2024 12:20 PM GLASS DESIGNER Height 162.6 cm (5' 4 ) 07/18/2024 10:04 AM GLASS DESIGNER Body Mass Index 32.99 07/18/2024 10:04 AM GLASS DESIGNER Plan of Treatment Upcoming Encounters Date Type Department Care Team (Late st Contact Info) Description 09/06/2024 2:00 PM CDT Appointment [facility] [address] [place] [address] Procedures Procedure Name Priority Date/Time Associated Diagnosis Comments HEMOGLOBIN A1C Routine 07/26/2024 1:10 PM GLASS DESIGNER Controlled type 2 diabetes mellitus without complication, without long-term current use of insulin (HCC) US PELVIS W TRANSVAG W DOP NON OB STAT 07/24/2024 12:42 PM GLASS DESIGNER Vaginal bleeding TYPE + SCREEN PANEL STAT 07/24/2024 1 0:39 AM GLASS DESIGNER HCG BETA BLOOD QUANTITATIVE STAT 07/24/2024 10:39 AM GLASS DESIGNER COMPREHENSIVE METABOLIC PANEL STAT 07/24/2024 10:39 AM GLASS DESIGNER CBC W AUTO DIFFERENTIAL STAT 07/24/2024 10:39 AM GLASS DESIGNER CARDIAC RHYTHM STRIP ORDER 07/22/2024 10:40 PM GLASS DESIGNER GLUCOSE - POINT OF CARE Routine 07/18/2024 1:06 PM GLASS DESIGNER PATHOLOGY TISSUE EXAM (STL) Routine 07/18/2024 12:37 PM GLASS DESIGNER Diagnosis unknown LARYNGEAL MASK AIRWAY Routine 07/18/2024 12:23 PM GLASS DESIGNER AR SURG RX MISSED MISCARRIAGE,1ST TRI 07/18/2024 11:49 AM GLASS DESIGNER Diagnosis unknown BLOOD TYPE VERIFICATION Routine 07/18/2024 10:25 AM GLASS DESIGNER Pre-op testing TYPE + SCREEN PANEL BERONICA 07/18/2024 1 0:19 AM GLASS DESIGNER Pre-op testing GLUCOSE - POINT OF CARE Routine 07/18/2024 10:18 AM GLASS DESIGNER BETA-2 GLYCOPROTEIN 1 ANTIBODY IGG/IGM PANEL Routine 07/16/2024 3:37 PM GLASS DESIGNER Recurrent loss without current CARDIOLIPIN ANTIBODY IGG/IGM PANEL Routine 07/16/2024 3:37 PM GLASS DESIGNER Recurrent loss without current LUPUS ANTICOAGULANT PANEL Routine 07/16/2024 3:37 PM GLASS DESIGNER Recurrent loss without current TSH REFLEX FREE T4 Routine 07/16/2024 3: 37 PM GLASS DESIGNER Recurrent loss without current SONOGRAM - COMPLETE Routine 07/16/2024 1 :23 PM GLASS DESIGNER MICROALB/CREAT RATIO URINE RANDOM PANEL Routine 02/02/2017 2:38 PM CDT Controlled type 2 diabetes mellitus without complication, without long-term current use of insulin (HCC) from Last 3 Months or Most Recently Relevant to Health Maintenance Results * (ABNORMAL) HEMOGLOBIN A1C (07/26/2024 1:10 PM GLASS DESIGNER) [facility] Hemoglobin A1c 8.2(H) <5.7 % 07/26/2024 3:17 PM GLASS DESIGNER [facility] Estimated Average Glucose 189 mg/dL 07/26/2024 3:17 PM [facility] Blood BLOOD SPECIMEN / Unknown Venipuncture / Unknown 07/26/2024 1:10 PM GLASS DESIGNER 07/26/2024 3:01 PM GLASS DESIGNER [facility] - 07/26/2024 3:17 PM GLASS DESIGNER HbA1c Interpretation: Normal: < 5.7% Pre-diabetes: 5.7-6.4% [...] Solis MD LAB - CHEMISTRY [facility] Organization Address City/State/[facility] Co de Phone Number [facility] [address] [phone] * US Pelvis W Transvag W Dop Non Ob (07/24/2024 12:42 PM GLASS DESIGNER) Anatomical Region Laterality Modality Pelvis Ultrasound 07/24/2024 12:5 0 PM GLASS DESIGNER Narrative 07/24/2024 12:52 PM GLASS DESIGNER PROCEDURE: US PELVIS W TRANSVAG W DOP NON OB, DATE/TIME OF EXAM: 07/24/2024 12:47 PM, LOCATION [facility] INDICATION: N93.9: Abnormal uterine and [...] DATE/TIME OF EXAM: 07/24/2024 12:47 PM, LOCATION [facility] INDICATION: N93.9: Abnormal uterine and [...] TYPE + SCREEN PANEL (07/24/2024 10:39 AM GLASS DESIGNER) Only the most recent of2 resultswithin the time period is included. Pathologist [facility] ABO Rh O POS 07/24/2024 11:30 AM GLASS DESIGNER [facility] Comment:History checked. Antibody Screen NEG 11:30 AM GLASS DESIGNER [facility] Blood Bank BLOOD SPECIMEN / Unknown Venipuncture / Unknown 07/24/2024 10:39 AM GLASS DESIGNER 07/24/2024 10:48 AM GLASS DESIGNER Andrea SINGH-NUCLEAR OPERATOR LAB - BLOOD BA NK ORDERABLES [facility] [address] [phone] * (ABNORMAL) CBC W AUTO DIFFERENTIAL (07/24/2024 10:39 AM GLASS DESIGNER) Pathologist [facility] WBC 11.4(H) 4.0 - 10.7 x10E9/L 07/24/2024 10:50 AM GLASS DESIGNER [facility] RBC Count 3.84(L) 3.90 - 5.20 x10E12/L 07/24/2024 10:50 AM [facility] Hemoglobin 10.5(L) 11.9 - 15.8 g/dL 07/24/2024 10:50 AM [facility] Hematocrit 31.6(L) 34.8 - 46.1 % 07/24/2024 10:50 AM [facility] MCV 82.3 80.0 - 98.0 fL 07/24/2024 10:50 AM [facility] MCH 27.3 26.7 - 33.6 pg 07/24/2024 10:50 AM [facility] MCHC 33.2 31.7 - 36.3 g/dL 07/24/2024 10:50 AM [facility] RDW-CV 13.4 11.3 - 14.8 % 07/24/2024 10:50 AM [facility] Platelet Count 332 150 - 420 x10E9/L 07/24/2024 10:50 AM [facility] MPV 11.2 7.8 - 11.4 fL 07/24/2024 10:50 AM [facility] Neutrophil % 76.0(H) 41.0 - 74.0 % 07/24/2024 10:50 AM [facility] Lymphocyte % 15.9(L) 17.0 - 47.0 % 07/24/2024 10:50 AM [facility] Monocyte % 5.1 3.0 - 11.0 % 07/24/2024 10:50 AM [facility] Eosinophil % 1.8 0.0 - 7.0 % 07/24/2024 10:50 AM [facility] Basophil % 0.4 0.0 - 1.6 % 07/24/2024 10:50 AM [facility] Immature Granulocytes % 0.8 0.0 - 1.0 % 07/24/2024 10:50 AM [facility] Neutrophil Absolute 8.68(H) 1.60 - 7.50 x10E9/L 07/24/2024 10:50 AM [facility] Lymphocyte Absolute 1.81 1.00 - 4.40 x10E9/L 07/24/2024 10:50 AM [facility] Monocyte Absolute 0.58 0.15 - 1.00 x10E9/L 07/24/2024 10:50 AM [facility] Eosinophil Absolute 0.21 0.00 - 0.60 x10E9/L 07/24/2024 10:50 AM [facility] Basophil Absolute 0.04 0.00 - 0.13 x10E9/L 07/24/2024 10:50 AM [facility] Blood BLOOD SPECIMEN / Unknown Venipuncture / Unknown 07/24/2024 10:39 AM GLASS DESIGNER 07/24/2024 10:48 AM [facility] Andrea Rawls APNP-NUCLEAR OPERATOR LAB - HEMATOLO GY ORDERABLES [facility] [address] [place] [address] * (ABNORMAL) COMPREHENSIVE METABOLIC PANEL (07/24/2024 10:39 AM [facility]) Glucose 275(H) 70 - 99 mg/dL 07/24/2024 11:03 AM [facility] Sodium 136 136 - 145 mmol/L 07/24/2024 11:03 AM [facility] Potassium 4.4 3.5 - 5.1 mmol/L 07/24/2024 11:03 AM [facility] Chloride 106 98 - 107 mmol/L 07/24/2024 11:03 AM [facility] CO2 21(L) 22 - 29 mmol/L 07/24/2024 11:03 AM [facility] Calcium 8.8 8.4 - 10.4 mg/dL 07/24/2024 11:03 AM [facility] Anion Gap 9 6 - 16 mmol/L 07/24/2024 11:03 AM [facility] BUN 14 5.3 - 18.7 mg/dL 07/24/2024 11:03 AM [facility] Creatinine 0.67 0.57 - 1.11 mg/dL 07/24/2024 11:03 AM [facility] Alkaline Phosphatase 55 40 - 150 U/L 07/24/2024 11:03 AM [facility] ALT 18 0 - 55 U/L 07/24/2024 11:03 AM [facility] AST 21 5 - 34 U/L 07/24/2024 11:03 AM [facility] Protein Total 7.1 6.4 - 8.3 gm/dL 07/24/2024 11:03 AM [facility] Albumin 3.3(L) 3.4 - 5.0 gm/dL 07/24/2024 11:03 AM [facility] Bilirubin Total 0.3 0.2 - 1.2 mg/dL 07/24/2024 11:03 AM GLASS DESIGNER [facility] eGFR by CKD-EPI >90 >=90 mL/min/1.7 3 m2 07/24/2024 11:03 AM GLASS DESIGNER [facility] Blood BLOOD SPECIMEN / Unknown Venipuncture / Unknown 07/24/2024 10:39 AM GLASS DESIGNER 07/24/2024 10:48 AM GLASS DESIGNER [facility] LAB - CHEMISTR Y ORDERABLES Performing Organization Address [facility] Co de Phone Number [facility] [address] [place] [phone] * HCG BETA BLOOD QUANTITATIVE (07/24/2024 10:39 AM GLASS DESIGNER) [facility] hCG Quantitative 365.89 mIU/mL 07/24/19 11:47 AM GLASS DESIGNER [facility] Blood BLOOD SPECIMEN / Unknown Venipuncture / Unknown 07/24/2024 10:39 AM GLASS DESIGNER 07/24/2024 10:48 AM GLASS DESIGNER Narrative [facility] - 07/24/2024 11:47 AM GLASS DESIGNER hCG Reference Range, mIU/mL: Non Females 0-6.0 [...] FSH >20 IU/L makes unlikely. Andrea Doke [facility] LAB - CHEMISTR Y ORDERABLES Performing Organization Address [facility] Co de Phone Number [facility] [address] [place] [phone] * CARDIAC RHYTHM STRIP ORDER (07/22/2024 10:40 PM GLASS DESIGNER) Narrative 07/22/2024 10:40 PM GLASS DESIGNER Ordered by an unspecified provider. Scanned Document CARDIAC SERVICES ORD ERABLES * (ABNORMAL) GLUCOSE - POINT OF CARE (07/18/2024 1:06 PM GLASS DESIGNER) Only the most recent of2 resultswithin the time period is included. Glucose WB/POC 133(H) 70 - 99 mg/dL 07/20/2024 1:56 AM GLASS DESIGNER [facility] Specimen Type Cap Fingerstick 2024 1:56 AM GLASS DESIGNER [facility] Blood BLOOD SPECIMEN / Unknown 07/18/2024 1:06 PM GLASS DESIGNER 07/20/2024 1:56 AM GLASS DESIGNER Karla Zamudio MD LAB - POINT OF CARE ORDERABLES [facility] [address] [phone] * PATHOLOGY TISSUE EXAM (STL) (07/18/2024 12:37 PM GLASS DESIGNER) Case Report Surgical Pathology Report Case: [id number] Authorizing Provider: Karla Zamudio MD Collected: 07/18/2024 12:37 PM [facility] Received: 07/18/2024 01:15 PM Pathologist: Kirt Billings MD Specimen: Products of Conception 07/19/2024 9:40 AM [facility] Final Diagnosis Uterine contents, dilation and curettage: Products of conception. 07/19/2024 9:40 AM [facility] Clinical History Missed 07/19/2024 9:40 AM [facility] Gross Description The specimen is identified with the patient's name and date of . Received in formalin, labeled specimen A, products of conception are multiple fragments of soft pink brasher tissue admixed with blood clot measuring 5 x 5 x 5 cm in aggregate. parts are not identified. Fish Net Stringer sections submitted in cassette [id number]. JULIO CESAR/DAVID 07/19/2024 9:40 AM [facility] Microscopic Description Sections show immature chorionic villi and decidua. 07/19/2024 9:40 AM [facility] Pathologist Location at [facility] 07/19/2024 9:40 AM [facility] Disclaimer All histochemical and/or immunohistochemical results are interpreted with controls that demonstrate appropriate staining reactions before reporting results. Note on use of immunocytochemistry reagents: This test was developed and its performance characteristic determined by [facility], Department of Laboratory Medicine. It has not [...] be interpreted with caution. 07/19/2024 9:40 AM [facility] Embedded Images 07/19/2024 9:40 AM [facility] Pathology/Cytolo gy PRODUCTS OF CONCEPTION TISSUE SPECIMEN / Unknown 07/18/2024 12:37 PM GLASS DESIGNER 07/18/2024 1:15 PM GLASS DESIGNER Comment:Pre-op diagnosis: Diagnosis unknown [R69] Karla Zamudio MD LAB - PATHOLOGY/CYTO LOGY ORDERABLES Performing Organization Address City/State/[facility] Co de Phone Number [facility] [address] [phone] * LARYNGEAL MASK AIRWAY (07/18/2024 12:23 PM GLASS DESIGNER) Narrative Alessio Fuentes APRN-LOSS PREVENTION COORDINATOR - 07/18/2024 12:23 PM GLASS DESIGNER Alessio Fuentes APRN-CRNA 07/18/2024 12:23 PM LMA [...] * BLOOD TYPE VERIFICATION (07/18/2024 10:25 AM GLASS DESIGNER) ABO Rh O POS 07/18/2024 10:55 AM GLASS DESIGNER [facility] Blood Bank BLOOD SPECIMEN / Unknown Venipuncture / Unknown 07/18/2024 10:25 AM GLASS DESIGNER 07/18/2024 10:26 AM GLASS DESIGNER Artemio Casanova MD LAB - BLOOD BANK ORD ERABLES Performing Organization Address [facility]/ZIP Co de Phone Number [facility] [address] [place] [address] * TSH REFLEX FREE T4 (07/16/2024 3:37 PM GLASS DESIGNER) TSH 0.466 0.350 - 4.940 uIU/mL 07/16/2024 4:32 PM GLASS DESIGNER [facility] Blood BLOOD SPECIMEN / Unknown Venipuncture / Unknown 07/16/2024 3:37 PM GLASS DESIGNER 07/16/2024 3:51 PM GLASS DESIGNER Gerber Bah MD LAB - CHEMISTRY ORDERABLES Performing Organization Address City/[facility]/ZIP Co de Phone Number [facility] [address] [place] [address] * LUPUS ANTICOAGULANT PANEL (07/16/2024 3:37 PM GLASS DESIGNER) APTT 27.4 23.0 - 38.4 Seconds 07/19/2024 10:07 AM [facility] PT 12.9 12.1 - 14.8 Seconds 07/19/2024 10:07 AM [facility] HOSPITAL INR 1.0 See Comment 07/19/2024 10:07 AM [facility] [employer] [place] Buffer 46.2 Seconds 025 10:07 AM [facility] [employer] [place] Phospholipid 40.4 Seconds 07/19/2024 10:07 AM [facility] [place] Delta 5.8 <8.0 Seconds 07/19/2024 10:07 AM [facility] Interpretation [place] Negative 07/19/2024 10:07 AM [facility] Comment:Up to 15-20% of yoel ents [...] Unknown Venipuncture / Unknown 07/16/2024 3:37 PM GLASS DESIGNER 07/16/2024 3:51 PM GLASS DESIGNER Gerber Bah MD LAB - HEMATOLOG Y ORDERABLES [facility] [address] [place] [phone], [facility] [phone] * CARDIOLIPIN ANTIBODY IGG/IGM PANEL (07/16/2024 3:37 PM GLASS DESIGNER) [facility] Cardiolipin Antibody IgG <9 0 - 14 GPL U/mL 07/18/2024 3:07 PM GLASS DESIGNER [facility] Comment: Negative: <15 Indeterminate: 15 - 20 Low-Med Positive: >20 - 80 High Positive: >80 Cardiolipin Antibody IgM <9 0 - 12 MPL U/mL 07/18/2024 3:07 PM GLASS DESIGNER [facility] Comment: Negative: <13 Indeterminate: 13 - 20 Low-Med Positive: >20 - 80 High Positive: >80 Blood BLOOD SPECIMEN / Unknown Venipuncture / Unknown 07/16/2024 3:37 PM GLASS DESIGNER 07/16/2024 3:51 PM GLASS DESIGNER Narrative [facility] - 07/18/2024 3:07 PM GLASS DESIGNER Performed at: 01 - [address] [id number] [employer] Lecturer: Ad Harris PhD, Phone: [phone] Gerber Bah MD LAB - SEROLOGY ORDERABLES Performing Organization Address [facility]/ZIP Co de Phone Number [facility] [address] [place] [address] * BETA-2 GLYCOPROTEIN 1 ANTIBODY IGG/IGM PANEL (07/16/2024 3:37 PM GLASS DESIGNER) [facility] Beta-2 Glycoprotein I Antibody IgG <9 0 - 20 GPI IgG units 07/18/2024 2:08 PM GLASS DESIGNER [facility] Comment: The reference interval reflects a 3SD or 99th percentile interval, which is thought to represent a potentially clinically significant result in accordance with the International Consensus Statement on the classification criteria for definitive antiphospholipid syndrome (APS). J Thromb Haem 2006;4:295-306. Beta-2 Glycoprotein I Antibody IgM <9 0 - 32 GPI IgM units 07/18/2024 2:08 PM GLASS DESIGNER [facility] Comment: The reference interval reflects a 3SD or 99th percentile interval, which is thought to represent a potentially clinically significant result in accordance with the International Consensus Statement on the classification criteria for definitive antiphospholipid syndrome (APS). J Thromb Haem 2006;4:295-306. Blood BLOOD SPECIMEN / Unknown Venipuncture / Unknown 07/16/2024 3:37 PM GLASS DESIGNER 07/16/2024 3:51 PM GLASS DESIGNER Narrative [facility] - 07/18/2024 2:08 PM GLASS DESIGNER Performed at: - Lab[address] [id number] [employer] Lecturer: Ad Harris PhD, Phone: [phone] Gerber Bah MD LAB - CHEMISTRY ORDERABLES Performing Organization Address City/[facility]/ZIP Co de Phone Number [facility] [address] [place] [address] * SONOGRAM - COMPLETE (07/16/2024 1:23 PM GLASS DESIGNER) [facility] Linked Results Indication ======== Dating/NT Abnormal NIPT [...] discuss plan of care. Coding ====== Procedures 95423: 1st Trimester Sjh direct marketing concepts PACS Anatomical Region Laterality Modality Other 07/16/2024 1:23 PM GLASS DESIGNER Augusta Leggett MD [facility] ORDERABLES * (ABNORMAL) MICROALB/CREAT RATIO URINE RANDOM PANEL (02/02/2017 2:38 PM CDT) Creatinine Urine 103.98 mg/dL 02/03/20 17 4:18 PM CDT [facility] Microalbumin Urine 3.3(H) <1.7 mg/dL 02/02/2017 4:18 PM CDT [facility] Microalbumin/Crea tinine Ratio 32(H) <30 mg/g 02/02/2017 4:18 PM CDT [facility] Urine URINE SPECIMEN OBTAINED BY CLEAN CATCH PROCEDURE / Unknown Collection / Unknown 02/02/2017 2:38 PM CDT 02/02/2017 3:10 PM CDT Deon Monteiro MD LAB - URINE CHEMISTR Y ORDERABLES [facility] [address] [place] [address] from Last 3 Months or Most Recently Relevant to Health Maintenance Care Teams Financial Intern Relationship Specialty Start Date End Date Gerber Betts DO [address] [place] [id number] PCP - General Family Medicine Geriatric Medicine 07/18/24
--- OUTSIDE RECORDS SUMMARY | 2024-08-20 01:31 | XMS_ITS | Encounter Summary ---
Author Organization [facility] Address [address] [place] [address] Care Team Providers Care Foreman Shipping Department Name Role Phone Michael Colorado MD Primary Care Provider [phone] Gerber Betts DO Primary Care Provider + Reason for Visit * Reason Onset Date Comments Parent Return Call 04/25/2016 Mom returned your call from last week. Encounter Details Date Type Department Care Team ([facility] Contact Info) Description 04/25/2016 Telephone [facility] Pediatrics - Endocrinology [address] [place] [phone] Deon Monteiro MD [address] [place] [phone] Parent Return Call (Mom returned your call from last week.) Social History Tobacco Use Types Packs/Day Years Used Date Smoking Tobacco: Never Sex and Gender Information Value Date Recorded Sex Assigned at Not on file Gender Identity Not on file Sexual Orientation Not on file documented as of this encounter Plan of Treatment Upcoming Encounters Date Type Department Care Team ([facility] Contact Info) Description 09/06/2024 2:00 PM CDT Appointment [facility]/ EVALUATION UNIT [address] [place] [address] [address] [place] [address] documented as of this encounter Visit Diagnoses Not on filedocumented in this encounter Care Teams Foreman Shipping Department Relationship Specialty Start Date End Date Michael Colorado MD [address] [place] [address] [address] [place] [address] PCP - General Pediatrics 04/20/16 07/17/24 Gerber Betts DO [address] [place] [phone] PCP - General Family Medicine Geriatric Medicine 07/18/24 documented as of this encounter
--- NOTE | 2024-08-20 01:36 | ED.GENADULT ---
HPI - General Adult General Chief complaint: Unspecified Stated complaint: miscarriage last month, D and C procedure Time Seen by Provider: 08/20/24 00:55 Source: patient and old records reviewed Mode of arrival: ambulatory Limitations: no limitations History of Present Illness HPI narrative: Patient is a 24-year-old female, with PMH of DM, bipolar disorder, who presents the ED with concern for . Patient reports she had a spontaneous miscarriage at 11 weeks at the beginning of July. She underwent D and C at that time. Has not had a menstrual cycle since her D&C which she was told to expect, but has been having unprotected sexual intercourse with her significant other and is concerned she may be again. . Complains of nausea, intermittent vomiting, intermittent lower abdominal cramping, constipation. Last bowel movement was yesterday. She did take laxatives. Denies urinary complaints. Denies fevers. Does complain of a slight sore throat. Patient is wanting a blood test for . Related Data Home Medications ?Medication ?Instructions ?Recorded ?Confirmed ?Last Taken ?Type aripiprazole 10 mg tablet 10 mg PO DAILY 03/05/23 03/05/23 1 Day Ago History ~03/04/23 clonidine HCl 0.2 mg tablet 0.2 mg PO HS 03/05/23 03/05/23 1 Day Ago History ~03/04/23 dextroamphetamine-amphetamine ER 20 mg PO DAILY 03/05/23 03/05/23 1 Day Ago History 20 mg 24hr capsule,extend release ~03/04/23 gabapentin 100 mg capsule 100 mg PO TID 03/05/23 03/05/23 1 Day Ago History ~03/04/23 insulin detemir U-100 100 unit/mL 10 unit subcut BID 03/05/23 03/06/23 1 Day Ago History (3 mL) subcutaneous pen ~03/04/23 Allergies Allergy/AdvReac Type Severity Reaction Status Date / Time morphine Allergy Hives Verified 06/29/24 13:49 Review of Systems Review of Systems: All systems reviewed & are unremarkable except as noted in HPI. All systems reviewed & are unremarkable except as noted in HPI and below PMFSH Past Medical History Medical History Chlamydia Treated (approx 2020) Hidradenitis suppurativa of left axilla ADHD (attention deficit hyperactivity disorder) Bipolar disorder Diabetic peripheral neuropathy ROSIE (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) Surgical History Surgical History No pertinent past surgical history Family History Family History Father Bipolar disorder Schizophrenia Heart failure Mother Age: 37 Schizophrenia Diabetes mellitus Hypertension Bipolar disorder COPD (chronic obstructive pulmonary disease) Chronic kidney disease Social History Social History Social History: She has been involved with her boyfriend for the last 2 years. She has lived with her boyfriend and his family for the last year. 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 She reports that she drinks 5-6 alcoholic beverages every couple of months. Code status: Full code Smoking status: Never smoker Alcohol intake: current Drinks per week: 3 Substance use: former Substance use type: marijuana Last use: 2019 Lack of Transportation: No Lack of Food: Never True Current Housing: I Have Housing Concerned About Future Housing: No Difficulty Paying Gas/Electric Bills: No Difficulty Paying for Meds: No Currently Unemployed: No Education: High School Diploma/GED Difficulty w/ Childcare or Family Care: No Spiritual care concerns: No Exam Narrative: GENERAL: Well appearing, well-nourished, non-toxic, in no acute distress. HEAD: Normocephalic, atraumatic. RESPIRATORY: Airway patent, respirations nonlabored. Clear to auscultation bilaterally, no rales, rhonchi, wheezing. CARDIOVASCULAR: Regular rate and rhythm without murmurs, rubs, or gallops. ABDOMINAL: Soft, no significant focal tenderness throughout abdomen, nondistended. Normoactive BS. MUSCULOSKELETAL: Moves all extremities. No gross deformities. SKIN: Warm, dry, normal color. NEURO: A&O X3. Speech clear. PSYCHIATRIC: Appropriate mood and affect. Normal interaction. Course Vital Signs Vital signs: Vital Signs Temperature 97.7 F 08/19/24 20:24 Pulse Rate 99 08/19/24 20:24 Respiratory Rate 18 08/19/24 20:24 Blood Pressure 136/83 08/19/24 20:24 Pulse Oximetry 100 08/19/24 20:24 Oxygen Delivery Room Air 08/19/24 20:24 Temperature 97.7 F 08/19/24 20:24 Pulse Rate 99 08/20/24 00:53 Respiratory Rate 18 08/20/24 00:53 Blood Pressure 145/92 H 08/20/24 00:50 Pulse Oximetry 100 08/20/24 00:53 Oxygen Delivery Room Air 08/19/24 20:24 Medical Decision Making MDM Narrative Medical decision making narrative: Patient presented to ED with concern for . Recent miscarriage and D&C. Reporting nausea, intermittent vomiting, intermittent cramping. Vital signs are stable upon arrival. Patient is in no acute distress upon my evaluation. Laboratory studies without significant abnormalities. Blood sugar is mildly elevated to 283. No evidence of DKA. Hx of IDDM. Liver enzymes are minimally elevated. Appear consistent with previous records. Beta hCG undetectable. UA does appear potentially infectious, though many squamous cells. Patient does report urinary frequency. Discussed this with patient. She would prefer to start antibiotics now. Advised close follow-up with PCP for urine culture results. Started on Keflex. Given 1st dose in the ED. Viral swabs negative. Patient does not have any focal tenderness on repeat abdominal exams to suggest need for further imaging. Feel she is safe for discharge home. Advised to stay well hydrated at home, monitor blood sugars, follow-up with PCP/OBGYN, given strict return precautions. She agrees with plan. Feels comfortable discharge home. Discharged in stable condition. Medical Records Medical records reviewed: Yes I reviewed the external patient's medical records. Vital Signs Vital Signs: Vital Signs Temperature 97.7 F 08/19/24 20:24 Pulse Rate 99 08/19/24 20:24 Respiratory Rate 18 08/19/24 20:24 Blood Pressure 136/83 08/19/24 20:24 Pulse Oximetry 100 08/19/24 20:24 Oxygen Delivery Room Air 08/19/24 20:24 Temperature 97.7 F 08/19/24 20:24 Pulse Rate 99 08/20/24 00:53 Respiratory Rate 18 08/20/24 00:53 Blood Pressure 145/92 H 08/20/24 00:50 Pulse Oximetry 100 08/20/24 00:53 Oxygen Delivery Room Air 08/19/24 20:24 Lab Data Lab results reviewed: Yes I reviewed the patient's lab results. 08/20/24 01:27 08/20/24 01:27 Labs: Lab Results 08/20/24 Range/Units 01:27 WBC 6.5 (4.5-10.0) K/mm3 RBC 4.58 (4.2-5.4) M/mm3 Hgb 12.0 (12.0-15.0) g/dL Hct 37.8 (37.0-47.0) % MCV 82.5 (80-100) fl MCH 26.2 (26-34) pg MCHC 31.7 L (32-36) g/dl RDW 13.3 (11.5-14.5) % Plt Count 270 (150-375) k/mm3 MPV 11.8 H (7.4-10.4) fl Immature Gran % (Auto) 1.4 H (0-0.5) % Neut % (Auto) 52.9 (45.5-73.1) % Lymph % (Auto) 33.7 (18.3-44.2) % [place] % (Auto) 8.3 (2.6-8.5) % Eos % (Auto) 2.9 (0-4.4) % Baso % (Auto) 0.8 (0.2-1.2) % Lymph # (Auto) 2.18 (0.9-3.2) K/mm3 [place] # (Auto) 0.5 (0.1-0.6) K/mm3 Eos # (Auto) 0.2 (0-0.3) K/mm3 Baso # (Auto) 0.1 (0.0-0.1) K/mm3 Abs Immat Gran (auto) 0.09 H (0.00-0.031) K/mm3 Absolute Neuts (auto) 3.4 (1.3-6.7) K/mm3 Absolute Nucleated RBC 0.000 (0.0-0.012) K/mm3 Nucleated RBC % 0.0 (0.0-0.2) % Sodium 137 (137-145) mmol/L Potassium 3.7 (3.4-5.0) mmol/L Chloride 99 (98-107) mmol/L Carbon Dioxide 26 (22-30) mmol/L Anion Gap 12 (4-12) mmol/L BUN 9 (7-17) mg/dL Creatinine 0.41 L (0.7-1.0) mg/dL Estim Creat Clear Calc Not Reportable Estimated GFR > 60 (59 - ) Glucose 283 H (65-110) mg/dL Calcium 9.0 (8.4-10.2) mg/dL Total Bilirubin 0.5 (0.2-1.3) mg/dL AST 40 H (14-36) U/L ALT 54 H (6-35) U/L Alkaline Phosphatase 91 (38-126) U/L Total Protein 8.0 (6.3-8.2) g/dL Albumin 4.4 (3.5-5.1) g/dL Beta HCG, Quant < 2.39 mIU/ML Urine Color Yellow (Yellow) Urine Appearance Cloudy H (Clear) Urine pH 6.5 (5.0-9.0) Ur Specific [place] > 1.045 H (1.001-1.035) Urine Protein Trace (Negative) mg/dL Urine Glucose (UA) 3+ H (Negative) mg/dL Urine Ketones Trace H (Negative) mg/dL Ur Blood (Man) Trace (Negative) Urine Nitrate Negative (Negative) Urine Bilirubin Negative (Negative) Urine Urobilinogen 1.0 (<2.0) mg/dL Add Ur Microanalysis Reviewed Leukocyte Esterase Rfl Negative (Negative) CARLOS/UL Urine RBC 0-2 (0-2) /hpf Urine WBC 11-20 H (0-3) /hpf Ur Squamous Epith Cells Many H (Few) /hpf Urine Bacteria 2+ H /hpf Urine Casts 0-2 Influenza A (RT-PCR) Negative (Negative) Influenza B (RT-PCR) Negative (Negative) RSV (RT-PCR) Negative (Negative) SARS-CoV-2 RNA (RT-PCR) Negative (Negative) Discharge Plan Discharge Clinical Impression: Nausea, Hyperglycemia UTI (urinary tract infection) Qualifiers: Urinary tract infection type: acute cystitis Hematuria presence: without hematuria Qualified Code(s): N30.00 - Acute cystitis without hematuria Patient Disposition: Home, Self-Care Condition: Stable Instructions: Antibiotic Form, Urinary Tract Infection in Women (ED), Diabetic Hyperglycemia (ED) Additional Instructions: Take antibiotics as prescribed for urinary tract infection. Follow-up with primary care doctor for urine culture results. Stay very well hydrated at home. Continue to monitor blood sugar. Utilize Zofran as needed for nausea. Return to the ED if you experience worsening or severe symptoms, unable to keep down food or drink, persistent fevers, difficulty breathing, or any other symptoms of concern. Patient Language: Icelandic Prescriptions: New cephalexin 500 mg capsule 500 mg PO Q6H 7 Days Qty: 28 0RF ondansetron 4 mg tablet,disintegrating 4 mg PO Q8H PRN (Reason: nausea and vomiting) Qty: 15 0RF No Action diclofenac sodium 50 mg tablet,delayed release (DR/EC) 50 mg PO TID PRN (Reason: pain) Qty: 30 0RF methocarbamol 750 mg tablet 750 mg PO Q6H PRN (Reason: muscle spasm) Qty: 30 0RF lidocaine 5 % adhesive patch,medicated 1 patch topical DAILY Qty: 15 0RF Rx Instructions: leave on most painful area for up to 12 hrs clindamycin HCl 300 mg capsule 300 mg PO Q6H 7 Days Qty: 28 0RF naproxen 375 mg tablet 375 mg PO BID Qty: 14 0RF clonidine HCl 0.2 mg tablet 0.2 mg PO HS dextroamphetamine-amphetamine 20 mg capsule,extended release 24hr 20 mg PO DAILY gabapentin 100 mg capsule 100 mg PO TID aripiprazole 10 mg tablet 10 mg PO DAILY insulin detemir U-100 100 unit/mL (3 mL) insulin pen 10 unit SUBCUT BID insulin aspart U-100 [Novolog U-100 Insulin aspart] 100 unit/mL Solution 10 unit subcut TIDWM 30 Days Qty: 9 0RF ondansetron 4 mg tablet,disintegrating 4 mg PO Q6H PRN (Reason: nausea and vomiting) Qty: 10 0RF hydrocodone-acetaminophen 5-325 mg tablet 1 tablet PO Q6H PRN (Reason: pain) Qty: 7 0RF doxycycline monohydrate 100 mg capsule 100 mg PO BID Qty: 14 0RF cefdinir 300 mg capsule 300 mg PO Q12H 7 Days Qty: 14 0RF ibuprofen 800 mg tablet 800 mg PO TID PRN (Reason: pain) 7 Days Qty: 21 0RF acetaminophen 500 mg tablet 1,000 mg PO TID PRN (Reason: melania) 7 Days Qty: 42 0RF oxycodone 5 mg tablet 5 mg PO Q4H PRN (Reason: pain) Qty: 7 0RF Follow-up/Referrals: Alpesh,DO Gerber [Primary Care Provider] - Time of Disposition: 02:44
[2024-08-20 01:53] LABS: Basophils Absolute Auto 0.1 K/mm3 (0.0-0.1); Basophils Percent Auto 0.8 % (0.2-1.2); Eosinophils Absolute Auto 0.2 K/mm3 (0-0.3); Eosinophils Percent Auto 2.9 % (0-4.4); Hematocrit 37.8 % (37.0-47.0); Immature Granulocyte Absolute 0.09 K/mm3 (0.00-0.031); Immature Granulocyte Percent A 1.4 % (0-0.5); Lymphocytes Absolute Auto 2.18 K/mm3 (0.9-3.2); Lymphocytes Percent Auto 33.7 % (18.3-44.2); Mean Corpuscular HGB Conc 31.7 g/dl (32-36); Mean Corpuscular Hemoglobin 26.2 pg (26-34); Mean Corpuscular Volume 82.5 fl (80-100); Mean Platelet Volume 11.8 fl (7.4-10.4); Monocytes Absolute Auto 0.5 K/mm3 (0.1-0.6); Monocytes Percent Auto 8.3 % (2.6-8.5); Neutrophils Absolute Auto 3.4 K/mm3 (1.3-6.7); Neutrophils Percent Auto 52.9 % (45.5-73.1); Platelet Count Result 270 k/mm3 (150-375); Red Blood Count 4.58 M/mm3 (4.2-5.4); Red Cell Distribution Width 13.3 % (11.5-14.5); White Blood Count 6.5 K/mm3 (4.5-10.0)
[2024-08-20 01:58] LABS: Alanine Aminotransferase 54 U/L (6-35); Albumin Level 4.4 g/dL (3.5-5.1); Alkaline Phosphatase 91 U/L (38-126); Anion Gap 12 mmol/L (4-12); Aspartate Amino Transferase 40 U/L (14-36); Bilirubin,Total 0.5 mg/dL (0.2-1.3); Blood Urea Nitrogen 9 mg/dL (7-17); Carbon Dioxide 26 mmol/L (22-30); Chloride 99 mmol/L (98-107); Estimated Glomerular Filt Rate > 60; Glucose 283 mg/dL (65-110); Potassium 3.7 mmol/L (3.4-5.0); Sodium 137 mmol/L (137-145)
[2024-08-20 02:11] LABS: Influenza A QL RT-PCR Negative (Negative); Influenza B QL RT-PCR Negative (Negative); RSV RNA, RT-PCR Negative (Negative); SARS-CoV-2 RNA PCR Negative (Negative)
[2024-08-20 02:15] LABS: Add Urine Microscopic? YES; Appearance Urine Cloudy (Clear); Bacteria Urine 2+ /hpf; Beta HCG Quantitative < 2.39 mIU/ML; Bilirubin Urine Negative (Negative); Blood Urine Trace (Negative); Color Urine Yellow (Yellow); Glucose Urine UA 3+ mg/dL (Negative); Ketones Urine Trace mg/dL (Negative); Leukocyte Esterase Ur Negative LEU/UL (Negative); Need Manual Microscopic Reviewed; Nitrate Urine Negative (Negative); Non Pathogenic Casts 0-2; Protein Urine Trace mg/dL (Negative); RBC Urine 0-2 /hpf (0-2); Specific Grav Ur > 1.045 (1.001-1.035); Squamous Epithelial Cell Urine Many /hpf (Few); pH Urine 6.5 (5.0-9.0)
[2024-08-20] MEDS: CEPHALEXIN 500 MG CAPSULE PO (02:53)
[2024-08-20 02:59] VITALS: BP 131/73; PULSE 77; RESP 18; O2SAT 99
== END 2024-08-20 02:59 | disposition home or self-care (01) ==
PROVIDERS: Emergency Provider Physician Assistant; PCP Student in an Organized Health Care Education/Training Program
DX: N30.00 Acute cystitis without hematuria (principal); E11.65 Type 2 diabetes mellitus with hyperglycemia; R11.0 Nausea; E11.42 Type 2 diabetes mellitus with diabetic polyneuropathy; F90.9 Attention-deficit hyperactivity disorder, unspecified type; F31.9 Bipolar disorder, unspecified; Z79.4 Long term (current) use of insulin; Z79.899 Other long term (current) drug therapy
CPT/HCPCS: 36415; 80053; 81001; 81025; 84702; 85025; 87637; 99283; A9270

== ENCOUNTER 2024-09-17 16:16 | Emergency (ER) | payer OTHER, SELFPAY ==
--- NOTE | ~2024-09-17 | CT_ITS ---
CT abdomen pelvis w con Ordering provider: Bladimir Romero PA-C History: 24 years Female with . RLQ pain, tenderness . Comparison: April 10, 2024 Technique: CT abdomen and pelvis with IV and without oral contrast. Automated exposure control and it erative reconstruction technique were employed. The dose-length product was 711.34 mGy-cm. 100 mL Omn ipaque 350 was given IV. Findings: VISUALIZED LOWER CHEST: Dependent atelectatic changes in the right lung base. UPPER ABDOMINAL ORGANS: Liver: Fat infiltration. Gallbladder: Normal. Spleen: Normal. Stomach/duodenum: Normal. Pancreas: Normal. Adrenals: Normal. Kidneys: Normal. PELVIC ORGANS: The bladder shows underfilling with thickened wall. Irregularity of the outline is see n suggestive of cystitis. Further evaluation advised. Right ovarian cyst measuring 1.9 cm is noted. Retroverted uterus. BOWEL AND MESENTERY: Colon: No evidence of diverticulitis. Normal appendix. Small Bowel: Normal. No obstruction. Peritoneum/mesentery: No free air or free fluid. No mesenteric lymphadenopathy. RETROPERITONEUM: Normal aorta. No retroperitoneal lymphadenopathy. MUSCULOSKELETAL: Superficial soft tissues: The superficial soft tissues are normal. Bones: Normal spine. IMPRESSION: 1. No evidence of appendicitis, diverticulitis or intestinal obstruction. 2. Highly suggestive cystitis. Clinical correlation advised. 3. Right ovarian follicle. Retroverted uterus. Reviewed, dictated and finalized at location A.
--- NOTE | ~2024-09-17 | US_ITS ---
US pelvic complete w TV Ordering provider: Bladimir Romero PA-C History: . RLQ pain, Hx of ovarian cysts . Comparison: None. Technique: Transabdominal and endovaginal ultrasound of the pelvis (Doppler ultrasound interrogation techniques used as needed for this exam.) FINDINGS: CERVIX: Normal. UTERUS: Measures 7.8x 4.4x 5.4 cm in length which is within normal limits and is anteverted. No myom etrial masses. Trace of fluid seen in the endometrium measuring 0.3 x 0.3 x 0.2 cm. ENDOMETRIUM: Normal in thickness measuring 10.8 mm. (Note: the premenopausal endometrium may measure up to 16 mm when in the secretory phase.) No endometrial masses, cysts or fluid. CUL DE SAC: No free fluid. RIGHT OVARY: Normal in size measuring 3.3x 2.5x 2.4 cm. Normal echotexture. Doppler vascular flow pre sent. Cyst is seen measuring 1.7 x 1.7 x 2 cm. LEFT OVARY: Normal in size measuring 3.4x 1.9x 1.4 cm. Normal echotexture. Doppler vascular flow pres ent. ADNEXA: Normal. No mass. IMPRESSION: Trace of fluid in the endometrium with slightly thickened endometrium. Correlation with the menstrual stage is advised. Right ovarian cyst. Otherwise, normal pelvic ultrasound. Reviewed, dictated and finalized at location A. IMPRESSION: Trace of fluid in the endometrium with slightly thickened endometrium. Correlat ion with the menstrual stage is advised. Right ovarian cyst. Otherwise, normal pelvic ultrasound.
[2024-09-17 16:32] VITALS: BP 121/75; PULSE 93; RESP 16; TEMP 36.6; O2SAT 100
--- NOTE | 2024-09-17 16:42 | ED.NAVMDI ---
HPI - Nausea/Vomiting/Diarrhea General Chief complaint: Nausea/Vomiting/Diarrhea <Giana Darnell PA-C - Last Filed: 09/17/24 16:44> Stated complaint: Vomiting, constipation <Giana Darnell PA-C - Last Filed: 09/17/24 16:44> Time Seen by Provider: 09/17/24 16:58 <Giana Darnell PA-C - Last Filed: 09/17/24 16:44> Focused HPI: 24 y/o F presents to the ED for n/v that started today. Pt states she has been constipated for 3 days and has some pain to her lower abdomen. Today developed n/v. She had a D&C performed in July for a miscarriage. Her LMP was 08/31. She took a test today and thought she saw a faint line so is concerned she is . Denies fever, other prior abdominal surgeries, dysuria, hematuria. GENERAL: Well-appearing, well-nourished, and in no acute distress. HEAD: Normocephalic, atraumatic. CHEST: Clear to auscultation. ?No respiratory distress. HEART: Regular rate and rhythm.? NEURO: ?Alert and oriented x3. Patient screened in triage and initial orders placed.? ?Additional care and disposition to be based upon?diagnostic testing and treatment. <Giana Darnell PA-C - Last Filed: 09/17/24 16:44> Source: patient <Bladimir Romero PA-C - Last Filed: 09/17/24 22:10> Mode of arrival: ambulatory <EZ Griggs Last Filed: 09/17/24 22:10> Limitations: no limitations <EZ Griggs Last Filed: 09/17/24 22:10> Related Data Home medications: Home Medications ?Medication ?Instructions ?Recorded ?Confirmed ?Last Taken ?Type aripiprazole 10 mg tablet 10 mg PO DAILY 03/05/23 03/05/23 1 Day Ago History ~03/04/23 clonidine HCl 0.2 mg tablet 0.2 mg PO HS 03/05/23 03/05/23 1 Day Ago History ~03/04/23 dextroamphetamine-amphetamine ER 20 mg PO DAILY 03/05/23 03/05/23 1 Day Ago History 20 mg 24hr capsule,extend release ~03/04/23 gabapentin 100 mg capsule 100 mg PO TID 03/05/23 03/05/23 1 Day Ago History ~03/04/23 insulin detemir U-100 100 unit/mL 10 unit subcut BID 03/05/23 03/06/23 1 Day Ago History (3 mL) subcutaneous pen ~03/04/23 <Giana Darnell PA-C - Last Filed: 09/17/24 16:44> Allergies/Adverse reactions: Allergies Allergy/AdvReac Type Severity Reaction Status Date / Time morphine Allergy Hives Verified 09/17/24 16:18 <Giana Darnell PA-C - Last Filed: 09/17/24 16:44> Review of Systems Review of Systems: All systems as dictated in HPI <Bladimir Romero PA-C - Last Filed: 09/17/24 22:10> [facility] Past Medical History Medical History: Medical History Chlamydia Treated (approx 2020) Hidradenitis suppurativa of left axilla ADHD (attention deficit hyperactivity disorder) Bipolar disorder Diabetic peripheral neuropathy ROSIE (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) <Giana Darnell PA-C - Last Filed: 09/17/24 16:44> Surgical History Surgical History: Surgical History No pertinent past surgical history <Giana Darnell PA-C - Last Filed: 09/17/24 16:44> Family History Family History: Family History Father Bipolar disorder Schizophrenia Heart failure Mother Age: 37 Schizophrenia Diabetes mellitus Hypertension Bipolar disorder COPD (chronic obstructive pulmonary disease) Chronic kidney disease <Giana Darnell PA-C - Last Filed: 09/17/24 16:44> Social History Social History: Social History Social History: She has been involved with her boyfriend for the last 2 years. She has lived with her boyfriend and his family for the last year. 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 She reports that she drinks 5-6 alcoholic beverages every couple of months. Code status: Full code Smoking status: Never smoker Alcohol intake: current Drinks per week: 3 Substance use: former Substance use type: marijuana Last use: 2019 Lack of Transportation: No Lack of Food: Never True Current Housing: I Have Housing Concerned About Future Housing: No Difficulty Paying Gas/Electric Bills: No Difficulty Paying for Meds: No Currently Unemployed: No Education: High School Diploma/GED Difficulty w/ Childcare or Family Care: No Spiritual care concerns: No <Giana Darnell PA-C - Last Filed: 09/17/24 16:44> Exam Narrative: GENERAL: Well-appearing, well-nourished, and in no acute distress. HEAD: Normocephalic, atraumatic. EYES: PERRLA and EOMI. ENT: Nares clear, no rhinorrhea or epistaxis. Mucous membranes moist. Oropharynx without tonsillar hypertrophy exudate or other lesions. NECK: Supple. No adenopathy or masses. CHEST: No respiratory distress. Clear to auscultation. No wheezes rales or rhonchi HEART: Regular rate and rhythm. No murmur heard. Normal peripheral pulses. ABDOMEN: Mild right flank tenderness. Mild right lower quadrant tenderness. Soft, nondistended, normal active bowel sounds. MSK: Normal range of motion. No edema. SKIN: Warm, dry, no rash. NEURO: Alert and oriented x4. No focal deficits. PSYCH: Normal mood and affect. <Bladimir Romero PA-C - Last Filed: 09/17/24 22:10> Course Vital Signs Vital signs: Vital Signs Temperature 97.8 F 09/17/24 16:32 Pulse Rate 93 09/17/24 16:32 Respiratory Rate 16 09/17/24 16:32 Blood Pressure 121/75 09/17/24 16:32 Pulse Oximetry 100 09/17/24 16:32 Temperature 97.8 F 09/17/24 16:32 Pulse Rate 86 09/17/24 19:23 Respiratory Rate 16 09/17/24 19:23 Blood Pressure 129/83 09/17/24 19:23 Pulse Oximetry 100 09/17/24 19:23 Oxygen Delivery Room Air 09/17/24 17:02 <Giana Darnell PA-C - Last Filed: 09/17/24 16:44> Vital Signs Temperature 97.8 F 09/17/24 16:32 Pulse Rate 93 09/17/24 16:32 Respiratory Rate 16 09/17/24 16:32 Blood Pressure 121/75 09/17/24 16:32 Pulse Oximetry 100 09/17/24 16:32 Temperature 97.8 F 09/17/24 16:32 Pulse Rate 86 09/17/24 19:23 Respiratory Rate 16 09/17/24 19:23 Blood Pressure 129/83 09/17/24 19:23 Pulse Oximetry 100 09/17/24 19:23 Oxygen Delivery Room Air 09/17/24 17:02 <EZ Griggs Last Filed: 09/17/24 22:10> MDM - Nausea/Vomiting/Diarrhea MDM Narrative Medical decision making narrative: This is a 24-year-old female who presents to the ED for chief complaint of N/V. Vitals are normal. Exam unremarkable overall aside from mild abdominal tenderness in the right lower quadrant. Lab work showing elevated white count of 11.7 CMP showing elevated glucose of 377 arrival but no evidence of DKA. Urinalysis remarkable for 1+ leuks, greater than 100 whites and 1+ bacteria. Pelvic ultrasound is negative for acute findings. Very low suspicion for ovarian torsion today. CT abdomen with IV contrast: IMPRESSION: 1. No evidence of appendicitis, diverticulitis or intestinal obstruction. 2. Highly suggestive cystitis. Clinical correlation advised. 3. Right ovarian follicle. Retroverted uterus. Patient is well-appearing on re-evaluation. She was given 5 units of insulin and 2 L of fluids. Last bedside glucose check was at 155. Presentation consistent with urinary tract infection. Does not appear to be consistent with pyelonephritis. She is not septic. Encouraged to or manage blood sugars with better diet to avoid having recurrent UTIs. Rx for cefdinir given. Patient will be discharged in stable condition. Supportive measures discussed and return precautions given. Patient is understanding and agreeable with plan for discharge with PCP follow-up. <EZ Griggs Last Filed: 09/17/24 22:10> Lab Data Result diagrams: 09/17/24 16:54 09/17/24 16:54 <Giana Darnell PA-C - Last Filed: 09/17/24 16:44> Labs: Lab Results 09/17/24 09/17/24 09/17/24 Range/Units 16:54 17:02 19:27 WBC 11.7 H (4.5-10.0) K/mm3 RBC 5.19 (4.2-5.4) M/mm3 Hgb 13.2 (12.0-15.0) g/dL Hct 41.1 (37.0-47.0) % MCV 79.2 L (80-100) fl MCH 25.4 L (26-34) pg MCHC 32.1 (32-36) g/dl RDW 12.9 (11.5-14.5) % Plt Count 338 (150-375) k/mm3 MPV 11.9 H (7.4-10.4) fl Immature Gran % (Auto) 0.3 (0-0.5) % Neut % (Auto) 73.6 H (45.5-73.1) % Lymph % (Auto) 18.6 (18.3-44.2) % [place] % (Auto) 5.4 (2.6-8.5) % Eos % (Auto) 1.7 (0-4.4) % Baso % (Auto) 0.4 (0.2-1.2) % Lymph # (Auto) 2.18 (0.9-3.2) K/mm3 [place] # (Auto) 0.6 (0.1-0.6) K/mm3 Eos # (Auto) 0.2 (0-0.3) K/mm3 Baso # (Auto) 0.1 (0.0-0.1) K/mm3 Abs Immat Gran (auto) 0.03 (0.00-0.031) K/mm3 Absolute Neuts (auto) 8.6 H (1.3-6.7) K/mm3 Absolute Nucleated RBC 0.000 (0.0-0.012) K/mm3 Nucleated RBC % 0.0 (0.0-0.2) % Sodium 138 (137-145) mmol/L Potassium 4.1 (3.4-5.0) mmol/L Chloride 99 (98-107) mmol/L Carbon Dioxide 27 (22-30) mmol/L Anion Gap 12 (4-12) mmol/L BUN 11 (7-17) mg/dL Creatinine 0.38 L (0.7-1.0) mg/dL Estim Creat Clear Calc 196 ml/min Estimated GFR > 60 (59 - ) Glucose 377 H (65-110) mg/dL POC Capillary Glucose 262 H (65-105) mg/dl Calcium 9.3 (8.4-10.2) mg/dL Total Bilirubin 0.4 (0.2-1.3) mg/dL AST 57 H (14-36) U/L ALT 57 H (6-35) U/L Alkaline Phosphatase 76 (38-126) U/L Total Protein 8.0 (6.3-8.2) g/dL Albumin 4.7 (3.5-5.1) g/dL Lipase 33 (23-300) U/L Urine Color Yellow (Yellow) Urine Appearance Cloudy H (Clear) Urine pH 6.5 (5.0-9.0) Ur Specific [place] 1.040 H (1.001-1.035) Urine Protein Trace (Negative) mg/dL Urine Glucose (UA) 3+ H (Negative) mg/dL Urine Ketones Negative (Negative) mg/dL Ur Blood (Man) 1+ H (Negative) Urine Nitrate Negative (Negative) Urine Bilirubin Negative (Negative) Urine Urobilinogen 0.2 (<2.0) mg/dL Leukocyte Esterase Rfl 1+ H (Negative) CARLOS/UL Urine RBC 3-5 H (0-2) /hpf Urine WBC >100 H (0-3) /hpf Ur Squamous Epith Cells Occasional (Few) /hpf Urine Bacteria 1+ H /hpf Urine Casts 0-2 POC Urine HCG, Qual Negative (Negative) <Giana Darnell PA-C - Last Filed: 09/17/24 16:44> Lab Results 09/17/24 09/17/24 09/17/24 Range/Units 16:54 17:02 19:27 WBC 11.7 H (4.5-10.0) K/mm3 RBC 5.19 (4.2-5.4) M/mm3 Hgb 13.2 (12.0-15.0) g/dL Hct 41.1 (37.0-47.0) % MCV 79.2 L (80-100) fl MCH 25.4 L (26-34) pg MCHC 32.1 (32-36) g/dl RDW 12.9 (11.5-14.5) % Plt Count 338 (150-375) k/mm3 MPV 11.9 H (7.4-10.4) fl Immature Gran % (Auto) 0.3 (0-0.5) % Neut % (Auto) 73.6 H (45.5-73.1) % Lymph % (Auto) 18.6 (18.3-44.2) % [place] % (Auto) 5.4 (2.6-8.5) % Eos % (Auto) 1.7 (0-4.4) % Baso % (Auto) 0.4 (0.2-1.2) % Lymph # (Auto) 2.18 (0.9-3.2) K/mm3 [place] # (Auto) 0.6 (0.1-0.6) K/mm3 Eos # (Auto) 0.2 (0-0.3) K/mm3 Baso # (Auto) 0.1 (0.0-0.1) K/mm3 Abs Immat Gran (auto) 0.03 (0.00-0.031) K/mm3 Absolute Neuts (auto) 8.6 H (1.3-6.7) K/mm3 Absolute Nucleated RBC 0.000 (0.0-0.012) K/mm3 Nucleated RBC % 0.0 (0.0-0.2) % Sodium 138 (137-145) mmol/L Potassium 4.1 (3.4-5.0) mmol/L Chloride 99 (98-107) mmol/L Carbon Dioxide 27 (22-30) mmol/L Anion Gap 12 (4-12) mmol/L BUN 11 (7-17) mg/dL Creatinine 0.38 L (0.7-1.0) mg/dL Estim Creat Clear Calc 196 ml/min Estimated GFR > 60 (59 - ) Glucose 377 H (65-110) mg/dL POC Capillary Glucose 262 H (65-105) mg/dl Calcium 9.3 (8.4-10.2) mg/dL Total Bilirubin 0.4 (0.2-1.3) mg/dL AST 57 H (14-36) U/L ALT 57 H (6-35) U/L Alkaline Phosphatase 76 (38-126) U/L Total Protein 8.0 (6.3-8.2) g/dL Albumin 4.7 (3.5-5.1) g/dL Lipase 33 (23-300) U/L Urine Color Yellow (Yellow) Urine Appearance Cloudy H (Clear) Urine pH 6.5 (5.0-9.0) Ur Specific [place] 1.040 H (1.001-1.035) Urine Protein Trace (Negative) mg/dL Urine Glucose (UA) 3+ H (Negative) mg/dL Urine Ketones Negative (Negative) mg/dL Ur Blood (Man) 1+ H (Negative) Urine Nitrate Negative (Negative) Urine Bilirubin Negative (Negative) Urine Urobilinogen 0.2 (<2.0) mg/dL Leukocyte Esterase Rfl 1+ H (Negative) CARLOS/UL Urine RBC 3-5 H (0-2) /hpf Urine WBC >100 H (0-3) /hpf Ur Squamous Epith Cells Occasional (Few) /hpf Urine Bacteria 1+ H /hpf Urine Casts 0-2 POC Urine HCG, Qual Negative (Negative) <Bladimir Romero PA-C - Last Filed: 09/17/24 22:10> Discharge Plan Discharge Clinical Impression: UTI (urinary tract infection) <Giana Darnell PA-C - Last Filed: 09/17/24 16:44> Patient Disposition: Home <EZ Ladd Last Filed: 09/17/24 16:44> Condition: Stable <EZ Ladd Last Filed: 09/17/24 16:44> Instructions: Antibiotic Form <EZ Ladd Last Filed: 09/17/24 16:44> Additional Instructions: Your exam and imaging today showed evidence of UTI and significantly elevated blood sugar.. Your risk of recurrent UTIs if your blood sugars are uncontrolled. Please take cefdinir as prescribed and follow-up with PCP on this issue. If you have any new or worsening symptoms please return to the ER for further evaluation. <Giana Darnell PA-C - Last Filed: 09/17/24 16:44> Patient Language: Georgian <Giana Darnell PA-C - Last Filed: 09/17/24 16:44> Prescriptions: New cefdinir 300 mg capsule 300 mg PO Q12H 7 Days Qty: 14 0RF No Action diclofenac sodium 50 mg tablet,delayed release (DR/EC) 50 mg PO TID PRN (Reason: pain) Qty: 30 0RF methocarbamol 750 mg tablet 750 mg PO Q6H PRN (Reason: muscle spasm) Qty: 30 0RF lidocaine 5 % adhesive patch,medicated 1 patch topical DAILY Qty: 15 0RF Rx Instructions: leave on most painful area for up to 12 hrs clindamycin HCl 300 mg capsule 300 mg PO Q6H 7 Days Qty: 28 0RF naproxen 375 mg tablet 375 mg PO BID Qty: 14 0RF clonidine HCl 0.2 mg tablet 0.2 mg PO HS dextroamphetamine-amphetamine 20 mg capsule,extended release 24hr 20 mg PO DAILY gabapentin 100 mg capsule 100 mg PO TID aripiprazole 10 mg tablet 10 mg PO DAILY insulin detemir U-100 100 unit/mL (3 mL) insulin pen 10 unit SUBCUT BID insulin aspart U-100 [Novolog U-100 Insulin aspart] 100 unit/mL Solution 10 unit subcut TIDWM 30 Days Qty: 9 0RF ondansetron 4 mg tablet,disintegrating 4 mg PO Q6H PRN (Reason: nausea and vomiting) Qty: 10 0RF hydrocodone-acetaminophen 5-325 mg tablet 1 tablet PO Q6H PRN (Reason: pain) Qty: 7 0RF doxycycline monohydrate 100 mg capsule 100 mg PO BID Qty: 14 0RF cefdinir 300 mg capsule 300 mg PO Q12H 7 Days Qty: 14 0RF ibuprofen 800 mg tablet 800 mg PO TID PRN (Reason: pain) 7 Days Qty: 21 0RF acetaminophen 500 mg tablet 1,000 mg PO TID PRN (Reason: melania) 7 Days Qty: 42 0RF oxycodone 5 mg tablet 5 mg PO Q4H PRN (Reason: pain) Qty: 7 0RF cephalexin 500 mg capsule 500 mg PO Q6H 7 Days Qty: 28 0RF ondansetron 4 mg tablet,disintegrating 4 mg PO Q8H PRN (Reason: nausea and vomiting) Qty: 15 0RF <Giana Darnell PA-C - Last Filed: 09/17/24 16:44> Follow-up/Referrals: Alpesh,DO Gerber [Primary Care Provider] - <Giana Darnell PA-C - Last Filed: 09/17/24 16:44> Stand Alone Forms: Work/School Release IP <Giana Darnell PA-C - Last Filed: 09/17/24 16:44> Time of Disposition: 20:32 <Giana Darnell PA-C - Last Filed: 09/17/24 16:44> 20:32 <Bladimir Romero PA-C - Last Filed: 09/17/24 22:10>
--- OUTSIDE RECORDS SUMMARY | 2024-09-17 16:53 | XMS_ITS | Clinical Summary ---
Author Organization [facility] Address [address] [place] [address] Care Team Providers Care Salesperson [employer] Name Role Phone JoshsteveGerber arnold Kg LOGAN Primary Care Provider + Source Comments [facility],non-owned Affiliates and Associated Physician Practices is amultiple site organization consisting of ambulatory clinics and hospital sitesin [place], [place], [place] and [place]. This disclosure is being madepursuant to the Care Everywhere program and may not contain all information available regarding this patient. Last updated 18.[facility] Allergies Active Allergy Reactions Criticality Noted Date Comments Morphine Urticaria Medium 04/20/2016 Medications * Be aware that medications may not be up to date on this document. Alwaysverify current medications with the patient. albuterol HFA (PROVENTIL;VENT ASHLEY;PROAIR) 108 (90 BASE) MCG/ACT inhaler Inhale 2 (two) puffs by mouth every 6 hours as needed Active Blood Glucose Monitoring Suppl (TRUETRACK BLOOD GLUCOSE) W/DEVICE KIT Use as directed 1 Kit 1 6 Active metFORMIN (GLUCOPHAGE) 500 MG tabletIndicatio ns:Controlled type 2 diabetes mellitus without complication, without long-term current use of insulin (HCC) Take two 500 mg tablets in the am and pm with food. 120 Tab 5 7 Active acetone,urine, (KETOSTIX) stripIndication s:Controlled type 2 diabetes mellitus without complication, without long-term current use of insulin (HCC) Use if blood sugar greater than 250 or in times of illness. 100 Strip 5 7 Active Additional Information Patient not taking.Reported on 07/16/2024 MICROLET LANCETS MISCIndications :Controlled type 2 diabetes mellitus without complication, without long-term current use of insulin (HCC) Use 1 Each as directed Use to test blood sugar 2 -3 times daily. 100 Each 11 7 Active blood glucose (TRUETRACK TEST) test stripIndication s:Controlled type 2 diabetes mellitus without complication, without long-term current use of insulin (HCC) Use to test blood sugar 2-3 times daily. 100 Strip 5 7 Active amphetamine-dex troamphetamine XR 24hr (Adderall XR) 20 MG capsule Take 1 (one) capsule by mouth every morning 3 Active metFORMIN ER 24hr (Glucophage XR) 500 MG tablet Take 1 (one) tablet by mouth daily with dinner 4 Active metFORMIN ER 24hr (Glucophage XR) 500 MG tabletIndicatio ns:Diabetes mellitus affecting in first trimester (HCC) Take 1 (one) tablet by mouth 2 times daily 60 tablet 3 5 Active Additional Information Patient not taking.Reported on [...] 36 mg/g (< 30) Jul 19, 2016 ([place], [place]): first morning voided urine microalbumin/creatinine: 23 ug/g (< 30) Apr 20, 2016 - spot urine microalbumin/creatinine: 36 mg/g (< 30) Jul 19, 2016 ([facility], [place], [place]): first morning voided urine microalbumin/creatinine: 23 ug/g (< 30) Last Assessment & Plan: ? Nonspecific vs early diabetic related microalbuminuria 1. Obtain first morning voided urine specimen for microalbumin/creatinine ratio (laboratory requisition given at the time of the office visit). 2. Expectant observation. 3. Return appointment in three months. Assessment & Plan (06/29/2016 12:53 PM MARKETING TRAFFIC COORDINATOR): ? Nonspecific vs early diabetic related microalbuminuria 1. Obtain first morning voided urine specimen for microalbumin/creatinine ratio (laboratory requisition given at the time of the office visit). 2. Expectant observation. 3. Return appointment in three months. Controlled type 2 diabetes bisi agrcia without complication, without long-term current use of insulin 04/21/2016 Overview (06/29/2016): Apr 15, 2016 - [facility], [address] [place] [address] Na 143 mmol/L, K 4.4 mmol/L, Cl [...] months. Assessment & Plan (06/29/2016 12:48 PM MARKETING TRAFFIC COORDINATOR): Good glycemic control. 1. Metformin 1000 mg bid 2. Home glucose monitoring twice daily. 3. Daily physical exercise (60 minutes daily) to promote weight loss 4. Return appointment in three months. Assessment & Plan (04/21/2016 4:13 PM MARKETING TRAFFIC COORDINATOR): New onset, probably type II, diabetes mellitus. [...] mg/dL (< 130) Jul 19, 2016 - [facility] Cholesterol 151 mg/dL (140-199), triglycerides 235 mg/dL (< 150), HDL- cholesterol 37 mg/dL (> 40), LDL-cholesterol 67 (< 130) cholesterol 261 mg/dL (100-170); triglyceride 925 mg/dL (140-199), HDL- cholesterol 41 mg/dL (< 150), LDL-cholesterol mg/dL (< 130) Jul 19, 2016 - [facility] Cholesterol 151 mg/dL (140-199), triglycerides 235 [...] sweets/fats Assessment & Plan (06/29/2016 12:45 PM MARKETING TRAFFIC COORDINATOR): 1. Dietary counseling provided 2. Fasting lipid profile (laboratory requisition given at the time of the office visit). .3 Return appointment in three months. Assessment & Plan (04/21/2016 4:13 PM MARKETING TRAFFIC COORDINATOR): ? Familial 1. Fasting lipid profile 2. [...] BURGOS) Assessment & Plan (06/29/2016 12:46 PM MARKETING TRAFFIC COORDINATOR): ? Nonspecific elevation vs evolving BURGOS 1. Repeat serum ALT level (laboratory requisition given at the time of the office visit). 3. Expectant observation. 3. Return appointment in three months. Assessment & Plan (04/21/2016 4:14 PM MARKETING TRAFFIC COORDINATOR): ? BURGOS 1. Repeat serum AST/ALT in one month. 2. Consider referral to Pediatric Gastroenterology Type 2 diabetes mellitus with polyneuropathy Overview (07/16/2024): Apr 15, 2016 - [facility], [address], [place], [place] [address] Na 143 mmol/L, K 4.4 mmol/L, Cl [...] Encounters Date Type Department Care Team Description 09/17/2024 Telephone [facility] UN[facility] [address] [place] [address]. [address] [place] [address] Myesha Farr GC Results (Chromosome Analysis) 09/13/2024 Telephone [facility] [address] [place] [address] Alessio Quezada MD Results 09/06/2024 1:35 PM CDT - 09/06/2024 11:59 PM CDT Hospital Encounter [facility] [address] [place] [address] Jreed Solis MD Discharge Disposition: Home or Self Care 09/06/2024 Travel 08/16/2024 Telephone [facility] [address] [place] [address] Myesha Farr GC Follow-up 08/06/2024 Telephone [facility] [address] [place] [address] Myesha Farr GC Results 07/29/2024 Telephone [facility] - DRAW FRAME OPERATOR [address] [place] [id number] Karla Zamudio MD Question 07/26/2024 12:11 PM MARKETING TRAFFIC COORDINATOR - 07/26/2024 11:59 PM MARKETING TRAFFIC COORDINATOR Hospital Encounter [facility] [address] [place] [address] Jered Solis MD Discharge Disposition: Home or Self Care 07/26/2024 Travel 07/25/2024 Telephone [facility] [address] [place] [address] Mercedes Tejada Scheduling 07/24/2024 11:30 AM MARKETING TRAFFIC COORDINATOR - 07/24/2024 2:19 PM MARKETING TRAFFIC COORDINATOR Emergency ER at [facility] [address] [place] [address] Vaginal bleeding Discharge Disposition: Home or Self Care 07/24/2024 Travel 07/24/2024 Telephone [facility] [address] [place] [address] Janice Duarte RN Vaginal Bleeding 07/18/2024 12:16 PM MARKETING TRAFFIC COORDINATOR Anesthesia Event [facility] [address] [place] [address] Lamin Llanes MD 07/18/2024 12:05 PM MARKETING TRAFFIC COORDINATOR - 07/18/2024 1:02 PM MARKETING TRAFFIC COORDINATOR Surgery [facility] [address] [place] [address] Karla Zamudio MD SUCTION DILATION AND CURETTAGE 07/18/2024 9:32 AM MARKETING TRAFFIC COORDINATOR - 07/18/2024 3:47 PM MARKETING TRAFFIC COORDINATOR Hospital Encounter [facility] [address] [place] [address] Karla Zamudio MD Surgery General Discharge Disposition: Home or Self Care 07/18/2024 Travel 07/17/2024 Patient Outreach [facility] [address] [place] [address] Yazmin Blackmon RN Care Management (Received a referral for SDOH needs. US report states no cardiac activity and pt has a scheduled D&C tomorrow. Will close this referral. ) 07/16/2024 11:34 AM MARKETING TRAFFIC COORDINATOR - 07/16/2024 11:59 PM MARKETING TRAFFIC COORDINATOR Hospital Encounter [facility] [address] [place] [address] Kimmy Sanderson MD Discharge Disposition: Home or Self Care 07/16/2024 11:33 AM MARKETING TRAFFIC COORDINATOR Hospital Encounter [facility] [address] [place] [address] Kimmy Sanderson MD Discharge Disposition: Home or Self Care 07/16/2024 11:32 AM MARKETING TRAFFIC COORDINATOR Hospital Encounter [facility] [address] [place] [address] Alphonse Quispe MD Discharge Disposition: Home or Self Care 07/16/2024 11:31 AM MARKETING TRAFFIC COORDINATOR Hospital Encounter [facility] [address] [place] [address] Alphonse Quispe MD Discharge Disposition: Home or Self Care 07/16/2024 Travel 07/11/2024 Telephone [facility] [address] [place] [address] Radha Romero, fiberglass auto body repairer from Last 3 Months Immunizations Immunization Administration Dates Next Due DTaP VACCINE IM (6wk-6yrs) 12/24/2004,,10/10/2001,10/10,2000,2000 HEP A PED/ADULT VACCINE 12/24/2004 HEP A PEDS 2 DOSE 01/14/2004 HEP B VACCINE, PED/ADOL 01/18/2001,2000, HIB VACCINE 2000,2000,2000 HIB-PRP-OMP 3 DOSE 10/10/2001 Human Papilloma Virus Elizabeth valent Vaccine 04/16/2014,02/06/2013,12/03/2012 INFLUENZA VACCINE 03/21/2019, 6,04/16/2014,06/14,02/24/2009,04/17/2008 INFLUENZA VACCINE, QUADR. (F LUZONE; FLULAVAL; FLUARIX; AFLURIA QUADRIVALENT; 6MO+), 0.5 ML (IIV4) 06/13/2023 MENINGOCOCCAL ACWY (MCV4P) VAC IM 12/03/2012 MENINGOCOCCAL ACWY MENVEO 01/17/2019 MMR 10/04/2005, 4,10/27/2001,07/30 Meningococcal B Recombinant [...] medical care, and heating? Somewhat hard 07/16/2024 [facility] Occupat ional Health - Occupational Stress [...] things needed for daily living? No 07/16/2024 [place] Depression Scale Answer Date Recorded [place] Depression Scale Total 11 07/16/2024 The thought [...] any time in the past 12 [address] [place], were you homeless or living in a long-term (including now)? No 07/16/2024 Estimated Date of Delivery Comme nts Yes 01/26/2025 Based on last me nstrual period of 04/21/2024 Sex and Gender Information Value Date Recorded Sex Assigned at Not on file Legal Sex Female 6:36 AM MARKETING TRAFFIC COORDINATOR Gender Identity Not on file Sexual Orientation Not on file Last Filed Vital Signs Vital Sign Reading Time Taken Comments Blood Pressure 131/74 09/06/2024 1:42 PM CDT Pulse 98 09/06/2024 1:42 PM CDT Temperature 36.7 C (98 F) 07/24/2024 10:06 AM MARKETING TRAFFIC COORDINATOR Respiratory Rate 17 07/24/2024 10:06 AM MARKETING TRAFFIC COORDINATOR Oxygen Saturation 99% 07/24/2024 10:06 AM MARKETING TRAFFIC COORDINATOR Inhaled Oxygen Concentration - - Weight 87 kg (191 lb 12.8 oz) 09/06/2024 1:42 PM CDT Height 162.6 cm (5' 4 ) 07/18/2024 10:04 AM MARKETING TRAFFIC COORDINATOR Body Mass Index 32.92 07/18/2024 10:04 AM MARKETING TRAFFIC COORDINATOR Plan of Treatment Upcoming Encounters Date Type Department Care Team (Late st Contact Info) Description 09/12/2025 2:00 PM CDT Appointment [facility] [address] [place] [address] [address] [place] [address] Health Maintenance Due Date Last Done Comments PNEUMOCOCCAL VACCINE (1 of 1 - PPSV23) 2006 07/30/2001, 2000, 2000, Additional history exists HIV SCREENING 2015 CHLAMYDIA/GONORRHEA SCREENING 2016 DIABETES RETINOPATHY SCREENING 06/29/2016 HEPATITIS C SCREENING 04/06/2018 DIABETES-FOOT EXAM WITH MONOFILAMENT 2018 MENINGOCOCCAL (Group B) VACC INE SHARED DECISION-MAKING (2 of 2 - Bexsero SCDM 2-dose series) 07/20/2019 01/17/2019 DIABETES - URINE PROTEIN SCREENING 06/05/20242016, 04/20/2016 OB-TDAP CURRENT 10/27/2024 06/13/2023, 06/2012 DIABETES-HGB A1C 01/23/2025 07/26/2024, 02/2024, 02/02/2017, Additional history exists DIABETES-SERUM CREATININE 07/24/20252024, 02/02/2017, 04/20/2016 PAP SMEAR 09/07/2027 09/06/2024 DTAP/TDAP/TD VACCINES (8 - T d or Tdap) 06/13/2033 06/13/2023, 12/03/2012, 12/24/2004, Additional history exists ZOSTER VACCINE (1 of 2) 2050 HEPATITIS B VACCINE Completed 01/18/2001, 2000, 2000 HIB VACCINE Completed 10/10/2001, 01/2001, 2000, Additional history exists HPV VACCINE Completed 04/16/2014, 09/2012, 12/03/2012 MENINGOCOCCAL GROUPS A/C/Y/W VACCINE Completed 01/17/2019, 12/03/2012 COVID-19 VACCINE Completed 08/14/2024 INFLUENZA VACCINE Completed 08/14/2024, , 03/21/2019, Additional history exists Respiratory Syncytial Virus (RSV) Vaccine Pt: or over 60 yrs (No Doses Required) Completed Procedures Procedure Name Priority Date/Time Associated Diagnosis Comments PAP IG LB RFLX HPV APTIMA ASCU Routine 09/06/2024 2:14 PM CDT Type 2 diabetes mellitus with polyneuropathy (HCC) CHROMOSOME ANALYSIS BLOOD PANEL Routine 09/06/2024 2:00 PM CDT Recurrent loss without current HEMOGLOBIN A1C Routine 07/26/2024 1:10 PM MARKETING TRAFFIC COORDINATOR Controlled type 2 diabetes mellitus without complication, without long-term current use of insulin US PELVIS W TRANSVAG W DOP NON OB STAT 07/24/2024 12:42 PM MARKETING TRAFFIC COORDINATOR Vaginal bleeding TYPE + SCREEN PANEL STAT 07/24/2024 1 0:39 AM MARKETING TRAFFIC COORDINATOR HCG BETA BLOOD QUANTITATIVE STAT 07/24/2024 10:39 AM MARKETING TRAFFIC COORDINATOR COMPREHENSIVE METABOLIC PANEL STAT 07/24/2024 10:39 AM MARKETING TRAFFIC COORDINATOR CBC W AUTO DIFFERENTIAL STAT 07/24/2024 10:39 AM MARKETING TRAFFIC COORDINATOR CARDIAC RHYTHM STRIP ORDER 07/22/2024 10:40 PM MARKETING TRAFFIC COORDINATOR GLUCOSE - POINT OF CARE Routine 07/18/2024 1:06 PM MARKETING TRAFFIC COORDINATOR PATHOLOGY TISSUE EXAM (STL) Routine 07/18/2024 12:37 PM MARKETING TRAFFIC COORDINATOR Diagnosis unknown LARYNGEAL MASK AIRWAY Routine 07/18/2024 12:23 PM MARKETING TRAFFIC COORDINATOR NE SURG RX MISSED MISCARRIAGE,1ST TRI 07/18/2024 11:49 AM MARKETING TRAFFIC COORDINATOR Diagnosis unknown BLOOD TYPE VERIFICATION Routine 07/18/2024 10:25 AM MARKETING TRAFFIC COORDINATOR Pre-op testing TYPE + SCREEN PANEL BERONICA 07/18/2024 1 0:19 AM MARKETING TRAFFIC COORDINATOR Pre-op testing GLUCOSE - POINT OF CARE Routine 07/18/2024 10:18 AM MARKETING TRAFFIC COORDINATOR BETA-2 GLYCOPROTEIN 1 ANTIBODY IGG/IGM PANEL Routine 07/16/2024 3:37 PM MARKETING TRAFFIC COORDINATOR Recurrent loss without current CARDIOLIPIN ANTIBODY IGG/IGM PANEL Routine 07/16/2024 3:37 PM MARKETING TRAFFIC COORDINATOR Recurrent loss without current LUPUS ANTICOAGULANT PANEL Routine 07/16/2024 3:37 PM MARKETING TRAFFIC COORDINATOR Recurrent loss without current TSH REFLEX FREE T4 Routine 07/16/2024 3: 37 PM MARKETING TRAFFIC COORDINATOR Recurrent loss without current SONOGRAM - COMPLETE Routine 07/16/2024 1 :23 PM MARKETING TRAFFIC COORDINATOR MICROALB/CREAT RATIO URINE RANDOM PANEL Routine 02/02/2017 2:38 PM CDT Controlled type 2 diabetes mellitus without complication, without long-term current use of insulin from Last 3 Months or Most Recently Relevant to Health Maintenance Results * PAP IG LB RFLX HPV APTIMA ASCU (09/06/2024 2:14 PM CDT) Diagnosis Comment 09/11/2024 11:10 AM CDT [facility] ([facility]) Comment: NEGATIVE FOR INTRAEPITHELIAL LESION OR MALIGNANCY. THIS SPECIMEN WAS RESCREENED PART OF OUR INFORMATION SYSTEMS PROFESSOR PROGRAM. Specimen Adequacy Comment 11:10 AM CDT [facility] ([facility]) Comment: Satisfactory for evaluation. Endocervical and/or squamous metaplastic cells (endocervical component) are present. Performed by Comment 09/11/2024 11:10 AM CDT [facility] ([facility]) Comment:Riley Cancino, Cytot echnologist ([facility]) QC Reviewed by Comment 09/11/2024 11:10 AM CDT [facility] ([facility]) Comment:Luz Maria guajardo, Architectural Engineering Teacher ([facility]) Comment . 09/11/2024 11:10 AM CDT [facility] ([facility]) Note Comment 09/11/2024 11:10 AM CDT [facility] ([facility]) Comment: The Pap smear is a screening test designed to aid in the detection of premalignant and malignant conditions of the uterine cervix. It is not a diagnostic procedure and should not be used as the sole means of detecting cervical cancer. Both false-positive and false-negative reports do occur. [facility] CPT Code Automation Comment 09/11/2024 11:10 AM CDT [facility] ([facility]) Comment: This liquid based ThinPrep(R) pap test was screened with the use of an image guided system. Note Comment 09/11/2024 11:10 AM CDT [facility] ([facility]) Comment: The HPV DNA reflex criteria were not met with this specimen result therefore, no HPV testing was performed. Pathology/Cytolo gy ENTIRE ENDOCERVIX / Unknown Collection / Unknown 09/06/2024 2:14 PM CDT 09/06/2024 2:48 PM CDT Narrative [facility] ([facility]) - 09/11/2024 11:10 AM CDT Performed at: 01 - [address] [place] [id number] Manager Of Marketing: Rebeka Vargas MD, Phone: [phone] Specimen Comment: No. of containers..01 ThinPrep Vial Jered Solis MD LAB - PATHOLOGY/CYTOLOGY ORDER ELIOT Final Result [facility] ([facility]) [address] [place] [address] * CHROMOSOME ANALYSIS BLOOD PANEL (09/06/2024 2:00 PM CDT) [facility] Chromosome Analysis Peripheral Blood See Note Normal 09/17/2024 11:46 AM CDT [facility] ([facility]) Comment: Test Performed: Chromosome Analysis Specimen Type: Peripheral Blood Indication for Testing: Recurrent loss Number of cells counted: 20 Number of cells analyzed: 5 Number of cells karyotyped: 5 ISCN band level: 550 Banding method: G-Banding RESULT Normal Karyotype (Female) 46,XX INTERPRETATION This analysis showed a normal result. The standard cytogenetic methodology used in this analysis may not detect small rearrangements or low-level mosaicism and cannot detect submicroscopic deletions or duplications that are detectable by genomic microarray analysis. Health care providers with questions may contact an [facility] genetic counselor at [phone]. [phone]. NOTE: Genomic microarray analysis will be reported separately under [facility] accession [id number]. This result has been reviewed and approved by Saqib Cervantes, PhD, [facility] A portion of this analysis was performed at the following location(s): [facility] Site CG-CO#1 [facility] Site CG-TN#1 [facility] Site -NE#1 INTERPRETIVE INFORMATION: Chromosome Analysis Constitutional Blood This test was developed and its performance characteristics determined by [employer]. It has not been cleared or approved by the [place] Food and Drug Administration. This test was performed in a CLIA certified laboratory and is intended for clinical purposes. Counseling and informed consent are recommended for genetic testing. Consent forms are available online. [facility] Chromosome Analysis Peripheral See Note 09/17/2024 11:46 AM CDT [facility] ([facility]) Comment: Authorized individuals can access the [facility] Enhanced Report with an [employer] Connect account using the following link. Your local lab can assist you in obtaining the patient report if you don't have a Connect account. [email or web address] Performed By: [facility] [address] [place] [address] Retail Banker: Zak Garcia MD, PhD CLIA Number: [id number] Blood BLOOD SPECIMEN / Unknown Lab Venipuncture / Unknown 09/06/2024 2:00 PM CDT 09/06/2024 2:42 PM CDT Jered Solis MD LAB - PATHOLOGY/CYTOLOGY ORDER ELIOT Final Result [facility] ([facility]) [address] * (ABNORMAL) HEMOGLOBIN A1C (07/26/2024 1:10 PM MARKETING TRAFFIC COORDINATOR) Hemoglobin A1c 8.2(H) <5.7 % 07/26/2024 3:17 PM MARKETING TRAFFIC COORDINATOR [facility] Estimated Average Glucose 189 mg/dL 07/26/2024 3:17 PM MARKETING TRAFFIC COORDINATOR [facility] Blood BLOOD SPECIMEN / Unknown Venipuncture / Unknown 07/26/2024 1:10 PM MARKETING TRAFFIC COORDINATOR 07/26/2024 3:01 PM MARKETING TRAFFIC COORDINATOR Narrative [facility] - 07/26/2024 3:17 PM MARKETING TRAFFIC COORDINATOR HbA1c Interpretation: Normal: < 5.7% Pre-diabetes: 5.7-6.4% [...] method. Jered Solis MD LAB - CHEMISTRY ORDERABLES Fin al Result Performing Organization Address City/State/[facility] Co de Phone Number [facility] [address] [phone] * US Pelvis W Transvag W Dop Non Ob (07/24/2024 12:42 PM MARKETING TRAFFIC COORDINATOR) Anatomical Region Laterality Modality Pelvis Ultrasound 07/24/2024 12:5 0 PM MARKETING TRAFFIC COORDINATOR Narrative 07/24/2024 12:52 PM MARKETING TRAFFIC COORDINATOR PROCEDURE: US PELVIS W TRANSVAG W DOP NON OB, DATE/TIME OF EXAM: 07/24/2024 12:47 PM, LOCATION [facility] INDICATION: N93.9: Abnormal uterine and vaginal bleeding, [...] DATE/TIME OF EXAM: 07/24/2024 12:47 PM, LOCATION [facility] INDICATION: N93.9: Abnormal uterine and vaginal bleeding, [...] 12:52 PM Daniella Carmen PA-C US ORDERABLES Final Result * TYPE + SCREEN PANEL (07/24/2024 10:39 AM MARKETING TRAFFIC COORDINATOR) Only the most recent of2 resultswithin the time period is included. ABO Rh O POS 07/24/2024 11:30 AM MARKETING TRAFFIC COORDINATOR [facility] Comment:History checked. Antibody Screen NEG 11:30 AM MARKETING TRAFFIC COORDINATOR [facility] Blood Bank BLOOD SPECIMEN / Unknown Venipuncture / Unknown 07/24/2024 10:39 AM MARKETING TRAFFIC COORDINATOR 07/24/2024 10:48 AM MARKETING TRAFFIC COORDINATOR Andrea SINGH-SUPERVISOR PASTRY LAB - BLOOD BANK ORDER ELIOT Final Result [facility] [address] [place] [address], [facility] [phone] * (ABNORMAL) CBC W AUTO DIFFERENTIAL (07/24/2024 10:39 AM [facility]) [facility] Signature WBC 11.4(H) 4.0 - 10.7 x10E9/L 07/24/2024 10:50 AM [facility] RBC Count 3.84(L) 3.90 - [...] Unknown Venipuncture / Unknown 07/24/2024 10:39 AM [facility] 07/24/2024 10:48 AM [facility] Yaquelindoreenluciana Rawls APNP-SUPERVISOR PASTRY LAB - HEMATOLOGY ORDER ELIOT Final Result Performing Organization Address City/State/[facility] Co de Phone Number [facility] [address] [place] [address] * (ABNORMAL) COMPREHENSIVE METABOLIC PANEL (07/24/2024 10:39 AM [facility]) Glucose 275(H) 70 - 99 [...] 0.2 - 1.2 mg/dL 07/24/2024 11:03 AM [facility] eGFR by CKD-EPI >90 >=90 mL/min/1.7 3 m2 07/24/2024 11:03 AM [facility] Blood BLOOD SPECIMEN / Unknown Venipuncture / Unknown 07/24/2024 10:39 AM MARKETING TRAFFIC COORDINATOR 07/24/2024 10:48 AM [facility] Andrea Curly APNP-SUPERVISOR PASTRY LAB - CHEMISTRY ORDERA BLES Final Result Performing Organization Address City/State/[facility] Co de Phone Number [facility] [address] [place] [address] * HCG BETA BLOOD QUANTITATIVE (07/24/2024 10:39 AM MARKETING TRAFFIC COORDINATOR) hCG Quantitative 365.89 mIU/mL 07/24/19 11:47 AM [facility] Blood BLOOD SPECIMEN / Unknown Venipuncture / Unknown 07/24/2024 10:39 AM MARKETING TRAFFIC COORDINATOR 07/24/2024 10:48 AM MARKETING TRAFFIC COORDINATOR Narrative [facility] - 07/24/2024 11:47 AM [facility] hCG Reference Range, mIU/mL: Non Females 0-6.0 [...] a serum FSH >20 IU/L makes unlikely. Result [facility] Andrea Rawls APNP-SUPERVISOR PASTRY LAB - CHEMISTRY ORDERA BLES Final Result Performing Organization Address [facility] Co de Phone Number [facility] [address] [place] [address] * CARDIAC RHYTHM STRIP ORDER (07/22/2024 10:40 PM MARKETING TRAFFIC COORDINATOR) Narrative 07/22/2024 10:40 PM MARKETING TRAFFIC COORDINATOR Ordered by an unspecified provider. Scanned Document CARDIAC SERVICES ORDERABLES Fin al Result * (ABNORMAL) GLUCOSE - POINT OF CARE (07/18/2024 1:06 PM MARKETING TRAFFIC COORDINATOR) Only the most recent of2 resultswithin the time period is included. Glucose WB/POC 133(H) 70 - 99 mg/dL 07/20/2024 1:56 AM MARKETING TRAFFIC COORDINATOR [facility] Specimen Type Cap Fingerstick 2024 1:56 AM MARKETING TRAFFIC COORDINATOR [facility] Blood BLOOD SPECIMEN / Unknown 07/18/2024 1:06 PM MARKETING TRAFFIC COORDINATOR 07/20/2024 1:56 AM MARKETING TRAFFIC COORDINATOR Karla Zamudio MD LAB - POINT OF CARE ORDERABLES F inal Result Performing Organization Address [facility] de Phone Number [facility] [address] [place] [address] * PATHOLOGY TISSUE EXAM (STL) (07/18/2024 12:37 PM MARKETING TRAFFIC COORDINATOR) Case Report Surgical Pathology Report Case: [id number] Authorizing Provider: Karla Zamudio MD Collected: 07/18/2024 12:37 PM Ordering Location: [facility] Received: 07/18/2024 01:15 PM Pathologist: [...] cm in aggregate. parts are not identified. Lot Boss sections submitted in cassette A1-A3. JULIO CESAR/DAVID 07/19/2024 9:40 AM [facility] Microscopic Description Sections show immature chorionic villi and decidua. 07/19/2024 9:40 AM [facility] Pathologist Location at [facility] 07/19/2024 9:40 AM [facility] Disclaimer All histochemical and/or immunohistochemical results are interpreted with controls that demonstrate appropriate staining reactions before reporting results. Note on use of immunocytochemistry reagents: This test was developed and its performance characteristic determined by [facility], Department of Laboratory Medicine. It [...] TISSUE SPECIMEN / Unknown 07/18/2024 12:37 PM MARKETING TRAFFIC COORDINATOR 07/18/2024 1:15 PM MARKETING TRAFFIC COORDINATOR Comment:Pre-op diagnosis: Diagnosis unknown [R69] Karla Zamudio MD LAB - PATHOLOGY/CYTOLOGY ORDERAB LES Final Result Performing Organization Address City/[facility] Co de Phone Number [facility] [address] [place] [address] * LARYNGEAL MASK AIRWAY (07/18/2024 12:23 PM MARKETING TRAFFIC COORDINATOR) Narrative Alessio Fuentes APRN-CRNA - 07/18/2024 12:23 PM MARKETING TRAFFIC COORDINATOR Alessio Fuentes APRN-CRNA 07/18/2024 12:23 PM LMA [...] the procedure. Lamin Llanes MD GENERAL ANESTHESIA ORDERABL ES Final Result * BLOOD TYPE VERIFICATION (07/18/2024 10:25 AM MARKETING TRAFFIC COORDINATOR) ABO Rh O POS 07/18/2024 10:55 AM MARKETING TRAFFIC COORDINATOR [facility] Blood Bank BLOOD SPECIMEN / Unknown Venipuncture / Unknown 07/18/2024 10:25 AM MARKETING TRAFFIC COORDINATOR 07/18/2024 10:26 AM MARKETING TRAFFIC COORDINATOR Artemio Casanova MD LAB - BLOOD BANK ORDERABLES Deidra l Result Performing Organization Address [facility] Co de Phone Number [facility] [address] [place] [address] * TSH REFLEX FREE T4 (07/16/2024 3:37 PM MARKETING TRAFFIC COORDINATOR) TSH 0.466 0.350 - 4.940 uIU/mL 07/16/2024 4:32 PM MARKETING TRAFFIC COORDINATOR [facility] Blood BLOOD SPECIMEN / Unknown Venipuncture / Unknown 07/16/2024 3:37 PM MARKETING TRAFFIC COORDINATOR 07/16/2024 3:51 PM MARKETING TRAFFIC COORDINATOR Gerber Bah MD LAB - CHEMISTRY ORDERAB LES Final Result [facility] [address] [place] [address] * LUPUS ANTICOAGULANT PANEL (07/16/2024 3:37 PM MARKETING TRAFFIC COORDINATOR) APTT 27.4 23.0 - 38.4 Seconds 07/19/2024 10:07 AM [facility] PT 12.9 12.1 - 14.8 Seconds 07/19/2024 10:07 AM [facility] INR 1.0 See Comment 07/19/2024 10:07 AM [facility] STACLOT-LA Buffer 46.2 Seconds 025 10:07 AM [facility] [place] Phospholipid 40.4 Seconds 07/19/2024 10:07 AM [facility] [place] Delta 5.8 <8.0 Seconds 07/19/2024 10:07 AM [facility] Interpretation STACLOT-LA Negative 07/19/2024 10:07 AM [facility] Comment:Up to 15-20% of yoel ents [...] Unknown Venipuncture / Unknown 07/16/2024 3:37 PM MARKETING TRAFFIC COORDINATOR 07/16/2024 3:51 PM MARKETING TRAFFIC COORDINATOR Gerber Bah MD LAB - HEMATOLOGY ORDERA BLES Final Result [address] [address], [facility] [phone] * CARDIOLIPIN ANTIBODY IGG/IGM PANEL (07/16/2024 3:37 PM MARKETING TRAFFIC COORDINATOR) Cardiolipin Antibody IgG <9 0 - 14 GPL U/mL 07/18/2024 3:07 PM MARKETING TRAFFIC COORDINATOR [facility] ([facility]) Comment: Negative: <15 Indeterminate: 15 - 20 Low-Med Positive: >20 - 80 High Positive: >80 Cardiolipin Antibody IgM <9 0 - 12 MPL U/mL 07/18/2024 3:07 PM MARKETING TRAFFIC COORDINATOR [facility] ([facility]) Comment: Negative: <13 Indeterminate: 13 - 20 Low-Med Positive: >20 - 80 High Positive: >80 Blood BLOOD SPECIMEN / Unknown Venipuncture / Unknown 07/16/2024 3:37 PM MARKETING TRAFFIC COORDINATOR 07/16/2024 3:51 PM MARKETING TRAFFIC COORDINATOR [facility] ([facility]) - 07/18/2024 3:07 PM MARKETING TRAFFIC COORDINATOR Performed at: - [address] [id number] Manager Of Marketing: Ad Harris PhD, Phone: [phone] us Gerber Bah MD LAB - SEROLOGY ORDERABL ES Final Result [facility] ([facility]) [address] [place] [address] * BETA-2 GLYCOPROTEIN 1 ANTIBODY IGG/IGM PANEL (07/16/2024 3:37 PM MARKETING TRAFFIC COORDINATOR) [facility] Beta-2 Glycoprotein I Antibody IgG <9 0 - 20 GPI IgG units 07/18/2024 2:08 PM MARKETING TRAFFIC COORDINATOR [facility] ([facility]) Comment: The reference interval reflects a 3SD or 99th percentile interval, which is thought to represent a potentially clinically significant result in accordance with the International Consensus Statement on the classification criteria for definitive antiphospholipid syndrome (APS). J Thromb Haem 2006;4:295-306. Beta-2 Glycoprotein I Antibody IgM <9 0 - 32 GPI IgM units 07/18/2024 2:08 PM MARKETING TRAFFIC COORDINATOR [facility] ([facility]) Comment: The reference interval reflects a 3SD or 99th percentile interval, which is thought to represent a potentially clinically significant result in accordance with the International Consensus Statement on the classification criteria for definitive antiphospholipid syndrome (APS). J Thromb Haem 2006;4:295-306. Blood BLOOD SPECIMEN / Unknown Venipuncture / Unknown 07/16/2024 3:37 PM MARKETING TRAFFIC COORDINATOR 07/16/2024 3:51 PM MARKETING TRAFFIC COORDINATOR Narrative [facility] ([facility]) - 07/18/2024 2:08 PM MARKETING TRAFFIC COORDINATOR Performed at: 01 - [address] [id number] Manager Of Marketing: Ad Harris PhD, Phone: [phone] us Gerber Bah MD LAB - CHEMISTRY ORDERAB LES Final Result [facility] ([facility]) [address] [place] [address] * SONOGRAM - COMPLETE (07/16/2024 1:23 PM MARKETING TRAFFIC COORDINATOR) Linked Results Indication ======== Dating/NT Abnormal NIPT [...] discuss plan of care. Coding ====== Procedures [id number]: 1st Trimester [facility] PACS Anatomical Region Laterality Modality Other 07/16/2024 1:23 PM MARKETING TRAFFIC COORDINATOR us Augusta Leggett MD [facility] ORDERABLES Edited R esult - Final * (ABNORMAL) MICROALB/CREAT RATIO URINE RANDOM PANEL (02/02/2017 2:38 PM CDT) Creatinine Urine 103.98 mg/dL 02/03/20 17 4:18 PM CDT [facility] Microalbumin Urine 3.3(H) <1.7 mg/dL 02/02/2017 4:18 PM CDT [facility] Microalbumin/Crea tinine Ratio 32(H) <30 mg/g 02/02/2017 4:18 PM CDT [facility] Urine URINE SPECIMEN OBTAINED BY CLEAN CATCH PROCEDURE / Unknown Collection / Unknown 02/02/2017 2:38 PM CDT 02/02/2017 3:10 PM CDT us Deon Monteiro MD LAB - URINE CHEMISTRY ORDERABLES Final Result [facility] [address] [place] [address] from Last 3 Months or Most Recently Relevant to Health Maintenance Insurance Care Teams Salesperson [employer] Relationship Specialty Start Date End Date Gerber Betts DO [address] [place] [phone] PCP - General Family Medicine Geriatric Medicine 07/18/24
--- OUTSIDE RECORDS SUMMARY | 2024-09-17 16:53 | XMS_ITS | Encounter Summary ---
Author Organization [facility] Address [address] [place] [address] Care Team Providers Care Ethologist Name Role Phone Michael Colorado MD Primary Care Provider [phone] Gerber Betts DO Primary Care Provider + Reason for Visit * Reason Onset Date Comments Parent Return Call 04/25/2016 Mom returned your call from last week. 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 COUNSEL Gender Identity Not on file Sexual Orientation Not on file documented as of this encounter Plan of Treatment Upcoming Encounters Date Type Department Care Team ([facility] Contact Info) Description 09/12/2025 2:00 PM CDT Appointment [facility]/ EVALUATION UNIT [address] [place] [phone] documented as of this encounter Visit Diagnoses Not on filedocumented in this encounter Care Teams Ethologist Relationship Specialty Start Date End Date Michael Colorado MD [address] [place] [address] [place] [address] PCP - General Pediatrics 04/20/16 07/17/24 Gerber Betts DO [address] [place] [address] PCP - General Family Medicine Geriatric Medicine 07/18/24 documented as of this encounter
--- OUTSIDE RECORDS SUMMARY | 2024-09-17 16:53 | XMS_ITS | Clinical Summary ---
Author Organization [facility] Address [address] [place] [address] Care Team Providers Care Apple Picking Supervisor Name Role Phone Gerber Betts Kg LOGAN [...] tabletIndications: Type 2 diabetes mellitus with polyneuropathy ([facility]) Take 1 tablet daily for 2 weeks, then take 2 tablets daily there after 60 tablet 2 4 Active Active Problems Problem Noted Date Diagnosed Date Hidradenitis suppurativa 06/13/2023 Bipolar 1 disorder, depressed ([facility]) 06/13/2020 Urine test positive for microalbuminuria 017 Overview (06/13/2023): Apr 20, 2016 - spot urine microalbumin/creatinine: 36 mg/g (< 30) Jul 19, 2016 ([place], [place]): first morning voided urine microalbumin/creatinine: 23 ug/g (< 30) Last Assessment & Plan: ? Nonspecific vs early diabetic related microalbuminuria 1. Obtain first morning voided urine specimen for microalbumin/creatinine ratio (laboratory requisition given at the time of the office visit). 2. Expectant observation. 3. Return appointment in three months. Type 2 diabetes mellitus wit h polyneuropathy ([facility]) 04/21/2016 Overview (06/13/2023): Apr 15, 2016 - [facility], [address] [place], [place] [address] Na 143 mmol/L, K 4.4 mmol/L, Cl [...] mg/dL (< 130) Jul 19, 2016 - [facility] Cholesterol 151 mg/dL (140-199), triglycerides 235 [...] associat ed with type 2 diabetes mellitus ([facility]/H[facility]) 2016 Encounters Date Type Department Care Team Description 08/20/2024 Scan [facility] Scanned, [facility] (SCAN) 08/20/2024 Scan [facility] Scanned, [facility] (SCAN) 07/22/2024 Scan [facility] Scanned, [facility] (SCAN) from Last 3 Months Immunizations Immunization Administration Dates Next Due Dtap ([employer]cel-Immune) 12/24/2004, [...] Comments Blood Pressure 104/66 06/13/2023 8:52 AM SYSTEMS AUDITOR Pulse 66 06/13/2023 8:52 AM SYSTEMS AUDITOR Temperature 36.3 C (97.4 F) 06/13/2023 8:52 AM SYSTEMS AUDITOR Respiratory Rate 16 06/13/2023 8:52 AM SYSTEMS AUDITOR Oxygen Saturation 97% 06/13/2023 8:52 AM SYSTEMS AUDITOR Inhaled Oxygen Concentration - - Weight 87.3 kg (192 lb 6.4 oz) 06/13/2023 8:52 A M SYSTEMS AUDITOR Height 162.6 cm (5' 4 ) 06/13/2023 8:52 AM SYSTEMS AUDITOR Body Mass Index 33.03 06/13/2023 8:52 AM SYSTEMS AUDITOR Plan of Treatment Health Maintenance Due Date Last Done Comments Cervical Cancer Screening Pap Smear (Age 21 to 29) Every 3 Years 2000 Cervical Cancer Screening 2000 Kidney Health Evaluation 2000 Annual Physical 2003 Pneumococcal Vaccine: Pediatrics (0 to 5 Years) and At-Risk Patients (6 to 49 Years) (1 of 2 - PCV) 2006 07/30/2001, 2000, 2000, Additional history exists Chlamydia Screening Females ages 16-24 2016 Lipid Panel 02/02/2018 02/02/2017 Hepatitis C 2018 Meningococcal B Vaccine (2 of 2 - Bexsero SCDM 2-dose series) 07/20/2019 01/17/2019 Hemoglobin A1C 09/12/2023 06/13/2023 COVID-19 Vaccine (1 - 2024-25 season) 2024 PHQ-2 (Physician Citizen [place]) 06/05/2024 06/13/2023 Diabetes: Retinopathy Eye Exam 08/27/2025 [...] Priority Date/Time Associated Diagnosis Comments OUTSIDE LAB COVID-19 (SCAN ORDER) Routine 08/20/2024 OUTSIDE LAB (SCAN ORDER) 08/20/2024 OUTSIDE LAB (SCAN ORDER) 08/20/2024 OUTSIDE LAB (SCAN ORDER) 08/20/2024 OUTSIDE LAB (SCAN ORDER) 07/22/2024 OUTSIDE PT/INR (SCAN ORDER) 07/22/2024 DIABETIC RETINOPATHY EXAM (NEGATIVE)(SCAN ORDER) Routine 08/28/2023 HEMOGLOBIN, GLYCOSYLATED Routine 06/13/2023 Type 2 diabetes mellitus with polyneuropathy from Last 3 Months or Most Recently Relevant to Health Maintenance Results * OUTSIDE LAB COVID-19 (08/20/2024) CORONAVIRUS SARS COV 2 PCR (RESP) NOT DETECTED NOT DETECTED [facility] 08/20/2024 us [facility] Scanned SCANNING Final Resu lt [facility] * OUTSIDE LAB (SCAN ORDER) (08/20/2024) Only the most recent of4 resultswithin the time period is included. 08/20/2024 us [facility] Scanned SCANNING Final Resu lt * OUTSIDE PT/INR (SCAN ORDER) (07/22/2024) 07/22/2024 us [facility] Scanned SCANNING Final Resu lt * DIABETIC RETINOPATHY EXAM (NEGATIVE) (08/28/2023) us [facility] Scanned SCANNING Final Resu lt [facility] * HEMOGLOBIN, GLYCOSYLATED (06/13/2023) HGB A1C 10.5 % [facility] 06/13/2023 Result [facility] Gerber Betts DO LABORATORY Final Re sult Performing Organization Address City/[facility]/ZIP Co de Phone Number [phone] [place] [address], from Last 3 Months or Most Recently Relevant to Health Maintenance Insurance Care Teams Apple Picking Supervisor Relationship Specialty Start Date End Date Gerber Betts DO [address] [place] [phone] PCP - General FAMILY PRACTICE 06/13/23
--- OUTSIDE RECORDS SUMMARY | 2024-09-17 16:54 | XMS_ITS | Encounter Summary ---
Author Organization [facility] Address [address] [place] [address] Care Team Providers Care Inspector Soldering Name Role Phone Gerber Betts Kg LOGAN Primary Care Provider + Reason for Visit * Reason Onset Date Comments Results 09/17/2024 Chromosome Alison sis Encounter Details Date Type Department Care Team ([facility] Contact Info) Description 09/17/2024 Telephone [facility]/ EVALUATION UNIT [address] [facility] [place] [address] Myesha Farr, [address] [place] [address] Results (Chromosome Analysis) Social History Tobacco Use Types Packs/Day Years Used Date Smoking Tobacco: Never Smokeless Tobacco: Never Alcohol Use Standard Drinks/Week Comments Not Currently [...] medical care, and heating? Somewhat hard 07/16/2024 [facility] Occup[facility] ional [facility] - Occupational Stress [...] needed for daily living? 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 Lori's microarray is still pending, results are expected in 1-2 weeks. She will be called with those when available. We reviewed the option of testing Lori's partner, Chuck, in light of her normal chromosome analysis results. Lori would like to wait until her microarray results are back before further discussing testing options for Chuck (chromosome analysis and microarray). We also briefly discussed the option of expanded carrier screening for the couple. We planned to further discuss when I call her with her microarray results. Additionally we discussed the option of a follow-up genetic counseling visitto review and further discuss options for further testing (testing for her partner, expanded carrier screening for the couple). Lori expressed interest in a follow-up visit; we will discuss scheduling when I call her with microarray results. Additionally, Lori reported she took an at-home test today and saw a faint line; I recommended she contact her OBGYN to discuss. Prior to results disclosure, normal results were reviewed and confirmed by Genevieve Marrero MS, CGC Myesha Farr MS, CGC documented in this encounter Plan of Treatment Upcoming Encounters Date Type Department Care Team (Late st Contact Info) Description 09/12/2025 2:00 PM CDT Appointment [facility]/ [facility]UATION UN[facility] [address] [facility] [address] [place] [address] documented as of this encounter Visit Diagnoses Not on filedocumented in this encounter Care Teams Inspector Soldering Relationship Specialty Start Date End Date Gerber Betts DO [address] [place] [phone] PCP - General Family Medicine Geriatric Medicine 07/18/24 documented as of this encounter
[2024-09-17 17:02] VITALS: BP 131/93; PULSE 99; RESP 18; O2SAT 100
[2024-09-17 17:04] LABS: Basophils Absolute Auto 0.1 K/mm3 (0.0-0.1); Basophils Percent Auto 0.4 % (0.2-1.2); Eosinophils Absolute Auto 0.2 K/mm3 (0-0.3); Eosinophils Percent Auto 1.7 % (0-4.4); Hematocrit 41.1 % (37.0-47.0); Hemoglobin 13.2 g/dL (12.0-15.0); Immature Granulocyte Absolute 0.03 K/mm3 (0.00-0.031); Immature Granulocyte Percent A 0.3 % (0-0.5); Lymphocytes Absolute Auto 2.18 K/mm3 (0.9-3.2); Lymphocytes Percent Auto 18.6 % (18.3-44.2); Mean Corpuscular HGB Conc 32.1 g/dl (32-36); Mean Corpuscular Hemoglobin 25.4 pg (26-34); Mean Corpuscular Volume 79.2 fl (80-100); Mean Platelet Volume 11.9 fl (7.4-10.4); Monocytes Absolute Auto 0.6 K/mm3 (0.1-0.6); Monocytes Percent Auto 5.4 % (2.6-8.5); Neutrophils Absolute Auto 8.6 K/mm3 (1.3-6.7); Neutrophils Percent Auto 73.6 % (45.5-73.1); Platelet Count Result 338 k/mm3 (150-375); Red Blood Count 5.19 M/mm3 (4.2-5.4); Red Cell Distribution Width 12.9 % (11.5-14.5); White Blood Count 11.7 K/mm3 (4.5-10.0)
[2024-09-17 17:05] LABS: BEDSIDEPREGUCG Negative (Negative)
[2024-09-17 17:08] LABS: Add Urine Microscopic? YES; Appearance Urine Cloudy (Clear); Bacteria Urine 1+ /hpf; Bilirubin Urine Negative (Negative); Blood Urine 1+ (Negative); Color Urine Yellow (Yellow); Glucose Urine UA 3+ mg/dL (Negative); Ketones Urine Negative (Negative); Leukocyte Esterase Ur 1+ LEU/UL (Negative); Nitrate Urine Negative (Negative); Non Pathogenic Casts 0-2; Protein Urine Trace mg/dL (Negative); Squamous Epithelial Cell Urine Occasional /hpf (Few); Urobilinogen Urine 0.2 mg/dL (<2.0); WBC Urine >100 /hpf (0-3); pH Urine 6.5 (5.0-9.0)
[2024-09-17 17:15] LABS: Alanine Aminotransferase 57 U/L (6-35); Albumin Level 4.7 g/dL (3.5-5.1); Alkaline Phosphatase 76 U/L (38-126); Anion Gap 12 mmol/L (4-12); Aspartate Amino Transferase 57 U/L (14-36); Bilirubin,Total 0.4 mg/dL (0.2-1.3); Blood Urea Nitrogen 11 mg/dL (7-17); Calcium 9.3 mg/dL (8.4-10.2); Carbon Dioxide 27 mmol/L (22-30); Chloride 99 mmol/L (98-107); Estimated CRCL calculation 196 ml/min; Estimated Glomerular Filt Rate > 60; Glucose 377 mg/dL (65-110); Lipase 33 U/L (23-300); Potassium 4.1 mmol/L (3.4-5.0); Sodium 138 mmol/L (137-145)
[2024-09-17] MEDS: SODIUM CHLORIDE 0.9% IV 1,000 ML 999 ML IV CONT ×2 (17:36)
[2024-09-17] MEDS: ONDANSETRON INJ 4 MG/2 ML VIAL IV PUSH (19:05)
[2024-09-17 19:23] VITALS: BP 129/83; PULSE 86; RESP 16; O2SAT 100
[2024-09-17] MEDS: INSULIN HUMAN REGULAR (*BKC) 100 UNITS/ML IV PUSH (19:25)
[2024-09-17 19:30] LABS: Glucose Point of Care 262 mg/dl (65-105)
[2024-09-18 08:00] LABS: Glucose Point of Care 155 mg/dl (65-105)
== END 2024-09-17 20:50 | disposition home or self-care (01) ==
PROVIDERS: Physician Assistant; Emergency Provider Physician Assistant; PCP Student in an Organized Health Care Education/Training Program
DX: N39.0 Urinary tract infection, site not specified (principal); E11.42 Type 2 diabetes mellitus with diabetic polyneuropathy; F31.9 Bipolar disorder, unspecified; F90.9 Attention-deficit hyperactivity disorder, unspecified type; Z79.4 Long term (current) use of insulin; Z79.899 Other long term (current) drug therapy; N83.01 Follicular cyst of right ovary
CPT/HCPCS: 36415; 74177; 76830; 76856; 80053; 81001; 81025; 82948; 83690; 85025; 87086; 96361; 96365; 96375; 99284; J0696; J1815; J2405; J7030; Q9967

== ENCOUNTER 2024-09-28 16:12 | Emergency (ER) | payer OTHER, SELFPAY ==
--- NOTE | ~2024-09-28 | XR_ITS ---
XR knee LT min 4V Ordering provider: Laci Sue MD History: . LATERAL PAIN AFTER TWISTING . Comparison: None. FINDINGS: BONES: No acute fracture or dislocation. Small bony fragment seen near to the medial femoral condyle which may be ossification the ligament. JOINT SPACES: Narrowing of the medial compartment. Early marginal osteophytes. SOFT TISSUES: Normal. IMPRESSION: No acute osseous abnormality left knee. Small bony fragment near to the medial femoral condyle most likely ossification in the ligament. Eval uation for tenderness in the area advised. Mild to moderate osteoarthritic changes. Reviewed, dictated and finalized at location A. IMPRESSION: No acute osseous abnormality left knee. Small bony fragment near to the medial femoral condyle most likely ossification in the ligament. Evaluation for tenderness in the area advised. Mild to moderate osteoarthritic changes.
--- OUTSIDE RECORDS SUMMARY | 2024-09-28 16:14 | XMS_ITS | Clinical Summary ---
Author Organization [facility] Address [address] [place] [address] Care Team Providers Care Seamless Hosiery Knitter Name Role Phone JoshsteveGerber arnold Kg LOGAN Primary Care Provider + Source Comments [facility],non-owned Affiliates and Associated Physician Practices is amultiple site organization consisting of ambulatory clinics and hospital sitesin [place], [place], [place] and [place]. This disclosure is being madepursuant to the Care Everywhere program and may not contain all information available regarding this patient. Last updated 18.[facility] Allergies Active Allergy Reactions Criticality Noted Date [...] 36 mg/g (< 30) Jul 19, 2016 ([place], [place]): first morning voided urine microalbumin/creatinine: 23 ug/g (< 30) Apr 20, 2016 - spot urine microalbumin/creatinine: 36 mg/g (< 30) Jul 19, 2016 ([facility], [place], [place]): first morning voided urine microalbumin/creatinine: 23 ug/g (< 30) Last Assessment & Plan: ? Nonspecific vs early diabetic related microalbuminuria 1. Obtain first morning voided urine specimen for microalbumin/creatinine ratio (laboratory requisition given at the time of the office visit). 2. Expectant observation. 3. Return appointment in three months. Assessment & Plan (06/29/2016 12:53 PM LUBE ATTENDANT): ? Nonspecific vs early diabetic related microalbuminuria 1. Obtain first morning voided urine specimen for microalbumin/creatinine ratio (laboratory requisition given at the time of the office visit). 2. Expectant observation. 3. Return appointment in three months. Controlled type 2 diabetes bisi garcia without complication, without long-term current use of insulin 04/21/2016 Overview (06/29/2016): Apr 15, 2016 - [facility], [address] [place] [address] Na 143 mmol/L, K 4.4 mmol/L, Cl [...] months. Assessment & Plan (06/29/2016 12:48 PM LUBE ATTENDANT): Good glycemic control. 1. Metformin 1000 mg bid 2. Home glucose monitoring twice daily. 3. Daily physical exercise (60 minutes daily) to promote weight loss 4. Return appointment in three months. Assessment & Plan (04/21/2016 4:13 PM LUBE ATTENDANT): New onset, probably type II, diabetes mellitus. [...] (< 130) Jul 19, 2016 - [facility] Cholesterol 151 mg/dL (140-199), triglycerides 235 mg/dL (< 150), HDL- cholesterol 37 mg/dL (> 40), LDL-cholesterol 67 (< 130) cholesterol 261 mg/dL (100-170); triglyceride 925 mg/dL (140-199), HDL- cholesterol 41 mg/dL (< 150), LDL-cholesterol mg/dL (< 130) Jul 19, 2016 - [facility] Cholesterol 151 mg/dL (140-199), triglycerides 235 [...] sweets/fats Assessment & Plan (06/29/2016 12:45 PM LUBE ATTENDANT): 1. Dietary counseling provided 2. Fasting lipid profile (laboratory requisition given at the time of the office visit). .3 Return appointment in three months. Assessment & Plan (04/21/2016 4:13 PM LUBE ATTENDANT): ? Familial 1. Fasting lipid profile 2. [...] BURGOS) Assessment & Plan (06/29/2016 12:46 PM LUBE ATTENDANT): ? Nonspecific elevation vs evolving BURGOS 1. Repeat serum ALT level (laboratory requisition given at the time of the office visit). 3. Expectant observation. 3. Return appointment in three months. Assessment & Plan (04/21/2016 4:14 PM LUBE ATTENDANT): ? BURGOS 1. Repeat serum AST/ALT in one month. 2. Consider referral to Pediatric Gastroenterology Type 2 diabetes mellitus with polyneuropathy Overview (07/16/2024): Apr 15, 2016 - [facility], [address], [place], [place] [address] Na 143 mmol/L, K 4.4 mmol/L, Cl [...] Type Department Care Team Description 09/17/2024 Telephone [facility] MATERNAL/ EVALUATION UNIT [address] [place] [address]. [address] [place] [address] Myesha Farr GC Results (Chromosome Analysis) 09/13/2024 Telephone [facility] PHYS OB [address] [place] [address] Alessio Quezada MD Results 09/06/2024 1:35 PM CDT - 09/06/2024 11:59 PM CDT Hospital Encounter [facility] MATERNAL/ EVALUATION UNIT [address] [place] [address] Jered Solis MD Discharge Disposition: Home or Self Care 09/06/2024 Travel 08/16/2024 Telephone [facility] MATERNAL/ EVALUATION UNIT [address] [place] [address] Myesha Farr GC Follow-up 08/06/2024 Telephone [facility] MATERNAL/ EVALUATION UNIT [address] [place] [address] Myesha Farr GC Results 07/29/[address] [facility] - SOIL TECHNOLOGIST [address] [place] [id number] Karla Zamudio MD Question 07/26/2024 12:11 PM LUBE ATTENDANT - 07/26/2024 11:59 PM LUBE ATTENDANT Hospital Encounter [facility] MATERNAL/ EVALUATION UNIT [address] [place] [address] Jered Solis MD Discharge Disposition: Home or Self Care 07/26/2024 Travel 07/25/2024 Telephone [facility] MATERNAL/ EVALUATION UNIT [address] [place] [address] Mercedes Tejada Scheduling 07/24/2024 11:30 AM LUBE ATTENDANT - 07/24/2024 2:19 PM LUBE ATTENDANT Emergency ER at [facility] [address] [place] [address] Vaginal bleeding Discharge Disposition: Home or Self Care 07/24/2024 Travel 07/24/2024 Telephone [facility] MATERNAL/ EVALUATION UNIT [address] [place] [address] Janice Duarte RN Vaginal Bleeding 07/18/2024 12:16 PM LUBE ATTENDANT Anesthesia Event [facility] PERIOPERATIVE [address] [place] [address] Lamin Llanes MD 07/18/2024 12:05 PM LUBE ATTENDANT - 07/18/2024 1:02 PM LUBE ATTENDANT Surgery [facility] PERIOPERATIVE [address] [place] [address] Karla Zamudio MD SUCTION DILATION AND CURETTAGE 07/18/2024 9:32 AM LUBE ATTENDANT - 07/18/2024 3:47 PM LUBE ATTENDANT Hospital Encounter [facility] PERIOPERATIVE [address] [place] [address] Karla Zamudio MD Surgery General Discharge Disposition: Home or Self Care 07/18/2024 Travel 07/17/2024 Patient Outreach [facility] MATERNAL/ EVALUATION UNIT [address] [place] [address] Yazmin Blackmon RN Care Management (Received a referral for SDOH needs. US report states no cardiac activity and pt has a scheduled D&C tomorrow. Will close this referral. ) 07/16/2024 11:34 AM LUBE ATTENDANT - 07/16/2024 11:59 PM LUBE ATTENDANT Hospital Encounter [facility] MATERNAL/ EVALUATION UNIT [address] [place] [address] Kimmy Sanderson MD Discharge Disposition: Home or Self Care 07/16/2024 11:33 AM LUBE ATTENDANT Hospital Encounter [facility] MATERNAL/ EVALUATION UNIT [address] [place] [address] Kimmy Sanderson MD Discharge Disposition: Home or Self Care 07/16/2024 11:32 AM LUBE ATTENDANT Hospital Encounter [facility] MATERNAL/ EVALUATION UNIT [address] [place] [address] Alphonse Quispe MD Discharge Disposition: Home or Self Care 07/16/2024 11:31 AM LUBE ATTENDANT Hospital Encounter [facility] MATERNAL/ EVALUATION UNIT [address] [place] [address] Alphonse Quispe MD Discharge Disposition: Home or Self Care 07/16/2024 Travel 07/11/2024 Telephone [facility] MATERNAL/ EVALUATION UNIT [address] [place] [address] Radha Romero, commercial property manager from Last 3 Months Immunizations Immunization Administration [...] medical care, and heating? Somewhat hard 07/16/2024 [facility] - Occupational Stress [...] things needed for daily living? No 07/16/2024 [place] Depression Scale Answer Date Recorded [place] Depression Scale Total 11 07/16/2024 The thought [...] any time in the past 12 m [facility], were you homeless or living in a fdc (including now)? No 07/16/2024 Estimated Date of Delivery Comme nts Yes 01/26/2025 Based on last me nstrual period of 04/21/2024 Sex and Gender Information Value Date Recorded Sex Assigned at Not on file Legal Sex Female 6:36 AM LUBE ATTENDANT Gender Identity Not on file Sexual Orientation Not on file Last Filed Vital Signs Vital Sign Reading Time Taken Comments Blood Pressure 131/74 09/06/2024 1:42 PM CDT Pulse 98 09/06/2024 1:42 PM CDT Temperature 36.7 C (98 F) 07/24/2024 10:06 AM LUBE ATTENDANT Respiratory Rate 17 07/24/2024 10:06 AM LUBE ATTENDANT Oxygen Saturation 99% 07/24/2024 10:06 AM LUBE ATTENDANT Inhaled Oxygen Concentration - - Weight 87 kg (191 lb 12.8 oz) 09/06/2024 1:42 PM CDT Height 162.6 cm (5' 4 ) 07/18/2024 10:04 AM LUBE ATTENDANT Body Mass Index 32.92 07/18/2024 10:04 AM LUBE ATTENDANT Plan of Treatment Upcoming Encounters Date Type Department Care Team (Late st Contact Info) Description 09/12/2025 2:00 PM CDT Appointment [facility] MATERNAL/ EVALUATION UNIT [address] [place] [address] [address] [place] [address] Health Maintenance Due Date Last Done Comments [...] DIABETES - URINE PROTEIN SCREENING 06/05/20242016, 04/20/2016 OB-ONE HOUR GLUCOSE 10/20/2024 OB-TDAP CURRENT 10/27/2024 06/13/2023, 06/2012 DIABETES-HGB A1C [...] 2:00 PM CDT Recurrent loss without current CYTOGENOMIC SNP MICROARRAY Routine 09/06/2024 2:00 PM CDT Recurrent loss without current HEMOGLOBIN A1C Routine 07/26/2024 1:10 PM LUBE ATTENDANT Controlled type 2 diabetes mellitus without complication, without long-term current use of insulin US PELVIS W TRANSVAG W DOP NON OB STAT 07/24/2024 12:42 PM LUBE ATTENDANT Vaginal bleeding TYPE + SCREEN PANEL STAT 07/24/2024 1 0:39 AM LUBE ATTENDANT HCG BETA BLOOD QUANTITATIVE STAT 07/24/2024 10:39 AM LUBE ATTENDANT COMPREHENSIVE METABOLIC PANEL STAT 07/24/2024 10:39 AM LUBE ATTENDANT CBC W AUTO DIFFERENTIAL STAT 07/24/2024 10:39 AM LUBE ATTENDANT CARDIAC RHYTHM STRIP ORDER 07/22/2024 10:40 PM LUBE ATTENDANT GLUCOSE - POINT OF CARE Routine 07/18/2024 1:06 PM LUBE ATTENDANT PATHOLOGY TISSUE EXAM (STL) Routine 07/18/2024 12:37 PM LUBE ATTENDANT Diagnosis unknown LARYNGEAL MASK AIRWAY Routine 07/18/2024 12:23 PM LUBE ATTENDANT ME SURG RX MISSED MISCARRIAGE,1ST TRI 07/18/2024 11:49 AM LUBE ATTENDANT Diagnosis unknown BLOOD TYPE VERIFICATION Routine 07/18/2024 10:25 AM LUBE ATTENDANT Pre-op testing TYPE + SCREEN PANEL BERONICA 07/18/2024 1 0:19 AM LUBE ATTENDANT Pre-op testing GLUCOSE - POINT OF CARE Routine 07/18/2024 10:18 AM LUBE ATTENDANT BETA-2 GLYCOPROTEIN 1 ANTIBODY IGG/IGM PANEL Routine 07/16/2024 3:37 PM LUBE ATTENDANT Recurrent loss without current CARDIOLIPIN ANTIBODY IGG/IGM PANEL Routine 07/16/2024 3:37 PM LUBE ATTENDANT Recurrent loss without current LUPUS ANTICOAGULANT PANEL Routine 07/16/2024 3:37 PM LUBE ATTENDANT Recurrent loss without current TSH REFLEX FREE T4 Routine 07/16/2024 3: 37 PM LUBE ATTENDANT Recurrent loss without current SONOGRAM - COMPLETE Routine 07/16/2024 1 :23 PM LUBE ATTENDANT MICROALB/CREAT RATIO URINE RANDOM PANEL Routine 02/02/2017 2:38 PM CDT Controlled type 2 diabetes mellitus without complication, without long-term current use of insulin from Last 3 Months or Most Recently Relevant to Health Maintenance Results * PAP IG LB RFLX HPV APTIMA ASCU (09/06/2024 2:14 PM CDT) Diagnosis Comment 09/11/2024 11:10 AM CDT [facility] ([facility]) Comment: NEGATIVE FOR INTRAEPITHELIAL LESION OR MALIGNANCY. THIS SPECIMEN WAS RESCREENED PART OF OUR INFORMATION SYSTEMS AUDITOR PROGRAM. Specimen Adequacy Comment 025 11:10 AM CDT [facility] ([facility]) Comment: Satisfactory for evaluation. Endocervical and/or squamous metaplastic cells (endocervical component) are present. Performed by Comment 09/11/2024 11:10 AM CDT [facility] ([facility]) Comment:Riley Cancino, Cytot echnologist (ASCP) QC Reviewed by Comment 09/11/2024 11:10 AM CDT [facility] ([facility]) Comment:Luz Maria guajardo, Kiln Worker (ASCP) Comment . 09/11/2024 11:10 AM CDT [facility] ([facility]) Note Comment 09/11/2024 11:10 AM CDT [facility] ([facility]) Comment: The Pap smear is a screening test designed to aid in the detection of premalignant and malignant conditions of the uterine cervix. It is not a diagnostic procedure and should not be used as the sole means of detecting cervical cancer. Both false-positive and false-negative reports do occur. IGLBP CPT Code Automation Comment 09/11/2024 11:10 AM CDT [facility] ([facility]) Comment: This liquid based ThinPrep(R) pap test was screened with the use of an image guided system. Note Comment 09/11/2024 11:10 AM CDT [facility] ([facility]) Comment: The HPV DNA reflex criteria were not met with this specimen result therefore, no HPV testing was performed. Pathology/Cytolo gy ENTIRE ENDOCERVIX / Unknown Collection / Unknown 09/06/2024 2:14 PM CDT 09/06/2024 2:48 PM CDT Narrative [facility] ([facility]) - 09/11/2024 11:10 AM CDT Performed at: 01 - [address] [place] [id number] Copy Director: Rebeka Vargas MD, Phone: [phone] Specimen Comment: No. of containers..01 ThinPrep Vial Jered Solis MD LAB - PATHOLOGY/CYTOLOGY ORDER ELIOT Final Result [facility] ([facility]) [address] [place] [address] * CYTOGENOMIC SNP MICROARRAY (09/06/2024 2:00 PM CDT) Pathologist [facility] Cytogenomic SNP Microarray Normal Normal 09/18/2024 9:14 AM CDT [facility] ([facility]) Comment: Test Performed: Cytogenomic SNP Microarray (INDUSTRIAL RECRUITER SNP) Specimen Type: Peripheral blood Indication for Testing: Recurrent loss --- RESULT SUMMARY Normal Microarray Result (Female) --- RESULT DESCRIPTION No clinically significant copy number changes or regions of homozygosity were detected. INTERPRETATION This analysis showed a normal result. Health care providers with questions may contact an [facility] genetic counselor at ext. [phone]. Cytogenomic Nomenclature (ISCN): arr (X,1-22)x2 Technical Information - This assay was performed using the [employer] Suite ([employer] according to validated protocols within the Genomic Microarray Laboratory at [facility] - This assay is designed to detect alterations to DNA copy number state (gains and losses) as well as copy-neutral alterations (regions of homozygosity; ELIAS) that indicate an absence- or rydl-tj-lxptlayawwobdh (AOH or SELAM) - AOH may be present due to parental relatedness (consanguinity) or uniparental disomy (UPD) - SELAM may be present due to acquired UPD (segmental or whole chromosome) - The detection sensitivity (resolution) for any particular genomic region may vary dependent upon the number of probes (markers), probe spacing, and thresholds for copy number and ELIAS determination - The [employer] HD array contains 2.67 million markers across the genome with average probe spacing of 1.15 kb, including 750,000 SNP probes and 1.9 million non-polymorphic probes - In general, the genome-wide resolution is approximately 25-50 kb for copy number changes and approximately 3 Mb for ELIAS (See reporting criteria) - The limit of detection for mosaicism varies dependent upon the size and type of genomic imbalance. In general, genotype mixture due to mosaicism (distinct cell lines from the same individual) or chimerism (cell lines from different individuals) will be detected when present at greater than 20-30 percent in the sample - Genomic coordinates correspond to the Genome Reference Consortium human genome build 37/human genome issue 19 (GRCh37/hg19) Variant Classification and Reporting Criteria - Copy number variant (CNV) analysis is performed in accordance with recommendations by the [employer] (ACMG), using standard 5-tier CNV classification terminology: pathogenic, likely pathogenic, variant of uncertain significance (VUS), likely benign, and benign - CNVs classified as pathogenic, likely pathogenic, or variant of uncertain significance are generally reported, based on information available at the time of review - Known or expected pathogenic CNVs affecting genes with known clinical significance but which are unrelated to the indication for testing will generally be reported - Variants that do not fall within the standard 5-tier CNV classification categories may be reported with descriptive language specific to that variant - In general, recessive disease risk and recurrent CNVs with established reduced penetrance will be reported - For a list of databases used in CNV classification, please refer to [facility] Constitutional CNV Assertion Criteria, which can be found on [facility]'s Genetics website at [email or web address] - CNVs classified as likely benign or benign that are devoid of relevant gene content or reported as common findings in the general population, are generally not reported - CNV reporting (size) criteria: losses greater than 50 kb and gains greater than 400 kb are generally reported, dependent on genomic content - ELIAS are generally reported when a single terminal ELIAS is greater than 3 Mb and a single interstitial ELIAS is greater than 10-15 Mb (dependent upon chromosomal location and likelihood of imprinting disorder) or when total autosomal homozygosity is greater than 3 percent (only autosomal ELIAS greater than 3 Mb are considered for this estimate) Limitations This analysis cannot provide structural (positional) information associated with genomic imbalance. Therefore, additional cytogenetic testing by chromosome analysis or fluorescence in situ hybridization (FISH) may be recommended. Certain genomic alterations may not or cannot be detected by this technology. These alterations may include, but are not limited to: - CNVs below the limit of resolution of this platform - Sequence-level variants (mutations) including point mutations and indels - Low-level mosaicism (generally, less than 20-30 percent) - Balanced chromosomal rearrangements (translocations, inversions and insertions) - Genomic imbalance in repetitive DNA regions (centromeres, telomeres, segmental duplications, and acrocentric chromosome short arms) Data Sharing In cooperation with the National Institutes of Health's effort to improve understanding of specific genetic variants, [facility] submits HIPAA-compliant, de-identified (cannot be traced back to the patient) genetic test results and health information to public databases. The confidentiality of each sample is maintained. If you prefer that your test result not be shared, call [facility] at ext. [phone]. Your de-identified information will not be disclosed to public databases after your request is received, but a separate request is required for each genetic test. Additionally, patients have the opportunity to participate in patient registries and research. To learn more, visit [facility]'s Genetics website at [email or web address]. This result has been reviewed and approved by Janis Garrison, PhD, [facility] A portion of this analysis was performed at the following location(s): [facility] Site CG-[place]#2 INTERPRETIVE INFORMATION: CYTOGENOMIC SNP MICROARRAY This test was developed and its performance characteristics determined by [facility]. It has not been cleared or approved by the US Food and Drug Administration. This test was performed in a CLIA certified laboratory and is intended for clinical purposes. Counseling and informed consent are recommended for genetic testing. Consent forms are available online. Performed By: [facility] [address] [place] [id number] Inspector Rough Castings: Zak Garcia MD, PhD CLIA Number: [id number] Blood BLOOD SPECIMEN / Unknown Lab Venipuncture / Unknown 09/06/2024 2:00 PM CDT 09/06/2024 2:42 PM CDT Jered Solis MD LAB - CHEMISTRY ORDERABLES Fin al Result [facility]) [address] [id number], [facility] * CHROMOSOME ANALYSIS BLOOD PANEL (09/06/2024 2:00 PM CDT) [facility] Chromosome Analysis Peripheral Blood See Note Normal 09/17/2024 11:46 AM CDT [facility]) Comment: Test Performed: Chromosome Analysis Specimen [...] care providers with questions may contact an [facility] genetic counselor at ext. [phone]. NOTE: Genomic microarray analysis will be reported separately under [facility] accession [id number]. This result has been reviewed and approved by Saqib Cervantes, PhD, [employer] A portion of this analysis was performed at the following location(s): [facility] Site [facility]#1 [facility] INTERPRETIVE INFORMATION: Chromosome Analysis Constitutional Blood This test was developed and its performance characteristics determined by [facility]. It has not been cleared or approved by the US Food and Drug Administration. This test was performed in a CLIA certified laboratory and is intended for clinical purposes. Counseling and informed consent are recommended for genetic testing. Consent forms are available online. [facility] Chromosome Analysis Peripheral See Note 09/17/2024 11:46 AM CDT [facility] Vac[employer] [facility] ([facility]) Comment: Authorized individuals can access the [employer] Enhanced Report with an [facility] Connect account using the following link. Your local lab can assist you in obtaining the patient report if you don't have a Connect account. [email or web address] Performed By: [facility] [address] [place] [address] Inspector Rough Castings: Zak Garcia MD, PhD [place] Number: [id number] Blood BLOOD SPECIMEN / Unknown Lab Venipuncture / Unknown 09/06/2024 2:00 PM CDT 09/06/2024 2:42 PM CDT Jered Solis MD LAB - PATHOLOGY/CYTOLOGY ORDER ELIOT Final Result [facility] Vac[employer] Listing Service [facility]) [address] * (ABNORMAL) HEMOGLOBIN A1C (07/26/2024 1:10 PM LUBE ATTENDANT) Hemoglobin A1c 8.2(H) <5.7 % 07/26/2024 3:17 PM LUBE ATTENDANT [facility] Estimated Average Glucose 189 mg/dL 07/26/2024 3:17 PM LUBE ATTENDANT [facility] Blood BLOOD SPECIMEN / Unknown Venipuncture / Unknown 07/26/2024 1:10 PM LUBE ATTENDANT 07/26/2024 3:01 PM LUBE ATTENDANT Narrative [facility] - 07/26/2024 3:17 PM LUBE ATTENDANT HbA1c Interpretation: Normal: < 5.7% Pre-diabetes: 5.7-6.4% [...] ORDERABLES Fin al Result Performing Organization Address City/State/[facility] Co de Phone Number [facility] [address] [place] [address] * US Pelvis W Transvag W Dop Non Ob (07/24/2024 12:42 PM LUBE ATTENDANT) Anatomical Region Laterality Modality Pelvis Ultrasound 07/24/2024 12:5 0 PM LUBE ATTENDANT Narrative 07/24/2024 12:52 PM LUBE ATTENDANT PROCEDURE: US PELVIS W TRANSVAG W DOP NON OB, DATE/TIME OF EXAM: 07/24/2024 12:47 PM, LOCATION [facility] INDICATION: N93.9: Abnormal uterine and [...] OF EXAM: 07/24/2024 12:47 PM, LOCATION [facility] INDICATION: N93.9: Abnormal uterine and [...] TYPE + SCREEN PANEL (07/24/2024 10:39 AM LUBE ATTENDANT) Only the most recent of2 resultswithin the time period is included. ABO Rh O POS 07/24/2024 11:30 AM [facility] Comment:History checked. Antibody Screen NEG 11:30 AM [facility] Blood Bank BLOOD SPECIMEN / Unknown Venipuncture / Unknown 07/24/2024 10:39 AM LUBE ATTENDANT 07/24/2024 10:48 AM LUBE ATTENDANT Andrea Rawls APNP-GENERAL MEDICAL PRACTITIONER LAB - BLOOD BANK ORDER ELIOT Final Result [facility] BLOOD BANK LAB [address] [place] [address] * (ABNORMAL) CBC W AUTO DIFFERENTIAL (07/24/2024 10:39 AM LUBE ATTENDANT) [facility] Signature WBC 11.4(H) 4.0 - 10.7 x10E9/L 07/24/2024 10:50 AM [facility] RBC Count 3.84(L) 3.90 - 5.20 x10E12/L 07/24/2024 10:50 AM [facility] Hemoglobin 10.5(L) 11.9 - 15.8 g/dL 07/24/2024 10:50 AM [facility] Hematocrit 31.6(L) 34.8 - 46.1 % 07/24/2024 10:50 AM [facility] MCV 82.3 80.0 - 98.0 fL 07/24/2024 10:50 AM [facility] MCH 27.3 26.7 - 33.6 pg 07/24/2024 10:50 AM [facility] MCHC 33.2 31.7 - 36.3 g/dL 07/24/2024 10:50 AM [facility] RDW-CV 13.4 11.3 - 14.8 % 07/24/2024 10:50 AM [facility] Platelet Count 332 150 - 420 x10E9/L 07/24/2024 10:50 AM [facility] MPV 11.2 7.8 - 11.4 fL 07/24/2024 10:50 AM [facility] Neutrophil % 76.0(H) 41.0 - 74.0 % 07/24/2024 10:50 AM [facility] Lymphocyte % 15.9(L) 17.0 - 47.0 % 07/24/2024 10:50 AM [facility] Monocyte % 5.1 3.0 - 11.0 % 07/24/2024 10:50 AM [facility] Eosinophil % 1.8 0.0 - 7.0 % 07/24/2024 10:50 AM [facility] Basophil % 0.4 0.0 - 1.6 % 07/24/2024 10:50 AM [facility] Immature Granulocytes % 0.8 0.0 - 1.0 % 07/24/2024 10:50 AM [facility] Neutrophil Absolute 8.68(H) 1.60 - 7.50 x10E9/L 07/24/2024 10:50 AM [facility] Lymphocyte Absolute 1.81 1.00 - 4.40 x10E9/L 07/24/2024 10:50 AM [facility] Monocyte Absolute 0.58 0.15 - 1.00 x10E9/L 07/24/2024 10:50 AM [facility] Eosinophil Absolute 0.21 0.00 - 0.60 x10E9/L 07/24/2024 10:50 AM [facility] Basophil Absolute 0.04 0.00 - 0.13 x10E9/L 07/24/2024 10:50 AM [facility] Blood BLOOD SPECIMEN / Unknown Venipuncture / Unknown 07/24/2024 10:39 AM [facility] 07/24/2024 10:48 AM [facility] Andrea Rawls APNP-GENERAL MEDICAL PRACTITIONER LAB - HEMATOLOGY ORDER ELIOT Final Result [facility] [address] [place] [address] * (ABNORMAL) COMPREHENSIVE METABOLIC PANEL (07/24/2024 10:39 AM [facility]) Glucose 275(H) 70 - 99 mg/dL 07/24/2024 11:03 AM [facility] Sodium 136 136 - 145 mmol/L 07/24/2024 11:03 AM [facility] Potassium 4.4 3.5 - 5.1 mmol/L 07/24/2024 11:03 AM [facility] Chloride 106 98 - 107 mmol/L 07/24/2024 11:03 AM [facility] CO2 21(L) 22 - 29 mmol/L 07/24/2024 11:03 AM [facility] Calcium 8.8 8.4 - 10.4 mg/dL 07/24/2024 11:03 AM [facility] Anion Gap 9 6 - 16 mmol/L 07/24/2024 11:03 AM [facility] BUN 14 5.3 - 18.7 mg/dL 07/24/2024 11:03 AM [facility] Creatinine 0.67 0.57 - 1.11 mg/dL 07/24/2024 11:03 AM [facility] Alkaline Phosphatase 55 40 - 150 U/L 07/24/2024 11:03 AM [facility] ALT 18 0 - 55 U/L 07/24/2024 11:03 AM [facility] AST 21 5 - 34 U/L 07/24/2024 11:03 AM [facility] Protein Total 7.1 6.4 - 8.3 gm/dL 07/24/2024 11:03 AM [facility] Albumin 3.3(L) 3.4 - 5.0 gm/dL 07/24/2024 11:03 AM [facility] Bilirubin Total 0.3 0.2 - 1.2 mg/dL 07/24/2024 11:03 AM [facility] eGFR by CKD-EPI >90 >=90 mL/min/1.7 3 m2 07/24/2024 11:03 AM [facility] Blood BLOOD SPECIMEN / Unknown Venipuncture / Unknown 07/24/2024 10:39 AM LUBE ATTENDANT 07/24/2024 10:48 AM LUBE ATTENDANT [facility] - CHEMISTRY ORDERA BLES Final Result [facility] [address] [place] [address] * HCG BETA BLOOD QUANTITATIVE (07/24/2024 10:39 AM LUBE ATTENDANT) Pathologist [facility] hCG Quantitative 365.89 mIU/mL 07/24/19 11:47 AM [facility] Blood BLOOD SPECIMEN / Unknown Venipuncture / Unknown 07/24/2024 10:39 AM LUBE ATTENDANT 07/24/2024 10:48 AM LUBE ATTENDANT Narrative [facility] - 07/24/2024 11:47 AM LUBE ATTENDANT hCG Reference Range, mIU/mL: Non Females 0-6.0 [...] serum FSH >20 IU/L makes unlikely. Andrea Rawls APNP-GENERAL MEDICAL PRACTITIONER LAB - CHEMISTRY ORDERA BLES Final Result [facility] [address] [place] [address] * CARDIAC RHYTHM STRIP ORDER (07/22/2024 10:40 PM LUBE ATTENDANT) Narrative 07/22/2024 10:40 PM LUBE ATTENDANT Ordered by an unspecified provider. Scanned Document CARDIAC SERVICES ORDERABLES Fin al Result * (ABNORMAL) GLUCOSE - POINT OF CARE (07/18/2024 1:06 PM LUBE ATTENDANT) Only the most recent of2 resultswithin the time period is included. Glucose WB/POC 133(H) 70 - 99 mg/dL 07/20/2024 1:56 AM LUBE ATTENDANT [facility] Specimen Type Cap Fingerstick 2024 1:56 AM LUBE ATTENDANT [facility] Blood BLOOD SPECIMEN / Unknown 07/18/2024 1:06 PM LUBE ATTENDANT 07/20/2024 1:56 AM LUBE ATTENDANT Karla Zamudio MD LAB - POINT OF CARE ORDERABLES F inal Result [facility] [address] [place] [address] * PATHOLOGY TISSUE EXAM (STL) (07/18/2024 12:37 PM LUBE ATTENDANT) Case Report Surgical Pathology Report Case: [id number] Authorizing Provider: Karla Zamudio MD Collected: 07/18/2024 12:37 PM Ordering Location: [facility] PERIOPERATIVE Received: 07/18/2024 01:15 PM Pathologist: Kirt Billings MD Specimen: Products of Conception 07/19/2024 9:40 AM [facility] Final Diagnosis Uterine contents, dilation and curettage: Products of conception. 07/19/2024 9:40 AM [facility] Clinical History Missed 07/19/2024 9:40 AM [facility] Gross Description The specimen is identified with the patient's name and date of . Received in formalin, labeled specimen A, products of conception are multiple fragments of soft pink brasher tissue admixed with blood clot measuring 5 x 5 x 5 cm in aggregate. parts are not identified. Warehouse Supervisor 3Rd Shift sections submitted in cassette [id number]. JULIO CESAR/DAVID 07/19/2024 9:40 AM [facility] Microscopic Description Sections show immature chorionic villi and decidua. 07/19/2024 9:40 AM [facility] Pathologist Location at [facility] 07/19/2024 9:40 AM [facility] Disclaimer All histochemical and/or immunohistochemical results are interpreted with controls that demonstrate appropriate staining reactions before reporting results. Note on use of immunocytochemistry reagents: This test was developed and its performance characteristic determined by [facility], Department of Laboratory Medicine. It [...] be interpreted with caution. 07/19/2024 9:40 AM [facility] Embedded Images 07/19/2024 9:40 AM [facility] Pathology/Cytolo gy PRODUCTS OF CONCEPTION TISSUE SPECIMEN / Unknown 07/18/2024 12:37 PM LUBE ATTENDANT 07/18/2024 1:15 PM LUBE ATTENDANT Comment:Pre-op diagnosis: Diagnosis unknown [R69] Karla Zamudio MD LAB - PATHOLOGY/CYTOLOGY ORDERAB LES Final Result Performing Organization Address [facility] Co de Phone Number [facility] [address] [place] [address] * LARYNGEAL MASK AIRWAY (07/18/2024 12:23 PM LUBE ATTENDANT) Narrative Alessio Fuentes APRN-CRNA - 07/18/2024 12:23 PM LUBE ATTENDANT Alessio Fuentes APRN-CRNA 07/18/2024 12:23 PM LMA [...] * BLOOD TYPE VERIFICATION (07/18/2024 10:25 AM LUBE ATTENDANT) ABO Rh O POS 07/18/2024 10:55 AM LUBE ATTENDANT [facility] B[facility] LAB Blood Bank BLOOD SPECIMEN / Unknown Venipuncture / Unknown 07/18/2024 10:25 AM LUBE ATTENDANT 07/18/2024 10:26 AM LUBE ATTENDANT Artemio Casanova MD LAB - BLOOD BANK ORDERABLES Deidra l Result [facility] B[facility]OD BANK LAB [address] [place] [address] * TSH REFLEX FREE T4 (07/16/2024 3:37 PM LUBE ATTENDANT) TSH 0.466 0.350 - 4.940 uIU/mL 07/16/2024 4:32 PM LUBE ATTENDANT [facility] Blood BLOOD SPECIMEN / Unknown Venipuncture / Unknown 07/16/2024 3:37 PM LUBE ATTENDANT 07/16/2024 3:51 PM LUBE ATTENDANT Gerber Bah MD LAB - CHEMISTRY ORDERAB LES Final Result [facility] [address] [place] [address] * LUPUS ANTICOAGULANT PANEL (07/16/2024 3:37 PM LUBE ATTENDANT) APTT 27.4 23.0 - 38.4 Seconds 07/19/2024 10:07 AM [facility] PT 12.9 12.1 - 14.8 Seconds 07/19/2024 10:07 AM [facility] INR 1.0 See Comment 07/19/2024 10:07 AM [facility]-[place] Buffer 46.2 Seconds 025 10:07 AM [facility] [place] Phospholipid 40.4 Seconds 07/19/2024 10:07 AM [facility] [place] Delta 5.8 <8.0 Seconds 07/19/2024 10:07 AM [facility] Interpretation [place] Negative 07/19/2024 10:07 AM [facility] Comment:Up to 15-20% of yoel ents [...] Unknown Venipuncture / Unknown 07/16/2024 3:37 PM LUBE ATTENDANT 07/16/2024 3:51 PM LUBE ATTENDANT us Gerber Bah MD LAB - HEMATOLOGY ORDERA BLES Final Result [facility] [address] [place] [address], [facility] [phone] * CARDIOLIPIN ANTIBODY IGG/IGM PANEL (07/16/2024 3:37 PM LUBE ATTENDANT) Pathologist [facility] Cardiolipin Antibody IgG <9 0 - 14 GPL U/mL 07/18/2024 3:07 PM LUBE ATTENDANT [facility] ([facility]) Comment: Negative: <15 Indeterminate: 15 - 20 Low-Med Positive: >20 - 80 High Positive: >80 Cardiolipin Antibody IgM <9 0 - 12 MPL U/mL 07/18/2024 3:07 PM LUBE ATTENDANT [facility] ([facility]) Comment: Negative: <13 Indeterminate: 13 - 20 Low-Med Positive: >20 - 80 High Positive: >80 Blood BLOOD SPECIMEN / Unknown Venipuncture / Unknown 07/16/2024 3:37 PM LUBE ATTENDANT 07/16/2024 3:51 PM LUBE ATTENDANT Narrative [facility] ([facility]) - 07/18/2024 3:07 PM LUBE ATTENDANT Performed at: 01 - [address] [id number] Copy Director: Ad Harris PhD, Phone: [phone] Gerber Bah MD LAB - SEROLOGY ORDERABL ES Final Result [facility]) [address] [place] [address] * BETA-2 GLYCOPROTEIN 1 ANTIBODY IGG/IGM PANEL (07/16/2024 3:37 PM LUBE ATTENDANT) [facility] Beta-2 Glycoprotein I Antibody IgG <9 0 - 20 GPI IgG units 07/18/2024 2:08 PM LUBE ATTENDANT [facility] ([facility]) Comment: The reference interval reflects a 3SD or 99th percentile interval, which is thought to represent a potentially clinically significant result in accordance with the International Consensus Statement on the classification criteria for definitive antiphospholipid syndrome (APS). J Thromb Haem 2006;4:295-306. Beta-2 Glycoprotein I Antibody IgM <9 0 - 32 GPI IgM units 07/18/2024 2:08 PM LUBE ATTENDANT [facility] ([facility]) Comment: The reference interval reflects a 3SD or 99th percentile interval, which is thought to represent a potentially clinically significant result in accordance with the International Consensus Statement on the classification criteria for definitive antiphospholipid syndrome (APS). J Thromb Haem 2006;4:295-306. Blood BLOOD SPECIMEN / Unknown Venipuncture / Unknown 07/16/2024 3:37 PM LUBE ATTENDANT 07/16/2024 3:51 PM LUBE ATTENDANT Narrative [facility] ([facility]) - 07/18/2024 2:08 PM LUBE ATTENDANT Performed at: - [address] [id number] Copy Director: Ad Harris PhD, Phone: [phone] us Gerber Bah MD LAB - CHEMISTRY ORDERAB LES Final Result [facility] ([facility]) [address] [place] [address] * SONOGRAM - COMPLETE (07/16/2024 1:23 PM LUBE ATTENDANT) Linked Results Indication ======== Dating/NT Abnormal NIPT [...] discuss plan of care. Coding ====== Procedures 98054: 1st Trimester [facility] disco volante PACS Anatomical Region Laterality Modality Other 07/16/2024 1:23 PM LUBE ATTENDANT us Augusta Leggett MD [facility] ORDERABLES Edited R esult - Final * (ABNORMAL) MICROALB/CREAT RATIO URINE RANDOM PANEL (02/02/2017 2:38 PM CDT) Creatinine Urine 103.98 mg/dL 02/03/20 17 4:18 PM CDT [facility] Microalbumin Urine 3.3(H) <1.7 mg/dL 02/02/2017 4:18 PM CDT [facility] Microalbumin/Crea tinine Ratio 32(H) <30 mg/g 02/02/2017 4:18 PM CDT [facility] Urine URINE SPECIMEN OBTAINED BY CLEAN CATCH PROCEDURE / Unknown Collection / Unknown 02/02/2017 2:38 PM CDT 02/02/2017 3:10 PM CDT us Deon Monteiro MD LAB - URINE CHEMISTRY ORDERABLES Final Result [facility] [address] [facility] [place] [address] from Last 3 Months or Most Recently Relevant to Health Maintenance Insurance Care Teams Seamless Hosiery Knitter Relationship Specialty Start Date End Date Gerber Betts DO [address] [place] [phone] PCP - General Family Medicine Geriatric Medicine 07/18/24
--- OUTSIDE RECORDS SUMMARY | 2024-09-28 16:14 | XMS_ITS | Encounter Summary ---
Author Organization [facility] Address [address] [place] [address] Care Team Providers Care Commissioned Police Officer Name Role Phone Michael Colorado MD Primary Care Provider Gerber Betts DO Primary Care Provider + Reason for Visit * Reason Onset Date Comments Parent Return Call 04/25/2016 Mom returned your call from last week. Encounter Details Date Type Department Care Team ([facility] Contact Info) Description 04/25/2016 Telephone [facility] Pediatrics - Endocrinology [address] [place] [id number] Deon Monteiro MD [address] [place] [phone] Parent Return Call (Mom returned your call from last week.) Social History Tobacco Use Types Packs/Day Years Used Date Smoking Tobacco: Never Comments No Sex and Gender Information Value Date Recorded Sex Assigned at Not on file Legal Sex Female 6:36 AM FIRE SUPERVISOR Gender Identity Not on file Sexual Orientation Not on file documented as of this encounter Plan of Treatment Upcoming Encounters Date Type Department Care Team ([facility] Contact Info) Description 09/12/2025 2:00 PM CDT Appointment [facility] [address] [place] [phone] documented as of this encounter Visit Diagnoses Not on filedocumented in this encounter Care Teams Commissioned Police Officer Relationship Specialty Start Date End Date Michael Colorado MD [address] [place] [address] [address] [place] [address] PCP - General Pediatrics 04/20/16 07/17/24 Gerber Betts DO [address] [place] [phone] PCP - General Family Medicine Geriatric Medicine 07/18/24 documented as of this encounter
--- OUTSIDE RECORDS SUMMARY | 2024-09-28 16:15 | XMS_ITS | Clinical Summary ---
Author Organization [facility] Address [address] [place] [address] Care Team Providers Care Ict Managers Name Role Phone Gerber Betts Kg LOGAN [...] tabletIndications: Type 2 diabetes mellitus with polyneuropathy ([facility]) Take 1 tablet daily for 2 weeks, then take 2 tablets daily there after 60 tablet 2 4 Active Active Problems Problem Noted Date Diagnosed Date Hidradenitis suppurativa 06/13/2023 Bipolar 1 disorder, depressed ([facility]) 06/13/2020 Urine test positive for microalbuminuria 017 Overview (06/13/2023): Apr 20, 2016 - spot urine microalbumin/creatinine: 36 mg/g (< 30) Jul 19, 2016 ([place], [place]): first morning voided urine microalbumin/creatinine: 23 ug/g (< 30) Last Assessment & Plan: ? Nonspecific vs early diabetic related microalbuminuria 1. Obtain first morning voided urine specimen for microalbumin/creatinine ratio (laboratory requisition given at the time of the office visit). 2. Expectant observation. 3. Return appointment in three months. Type 2 diabetes mellitus wit h polyneuropathy ([facility]) 04/21/2016 Overview (06/13/2023): Apr 15, 2016 - [facility], [address] [place], [place] [address] Na 143 mmol/L, K 4.4 mmol/L, Cl [...] 130) Jul 19, 2016 - [facility] Cholesterol 151 mg/dL (140-199), triglycerides 235 [...] associat ed with type 2 diabetes mellitus ([facility]) 2016 Encounters Date Type Department Care Team Description 09/17/2024 Scan [facility] Scanned, [facility] Lab (SCAN); Ultrasound (SCAN); CT (SCAN) 08/20/2024 Scan [facility] [...] Comments Blood Pressure 104/66 06/13/2023 8:52 AM FLORAL ARTIST Pulse 66 06/13/2023 8:52 AM FLORAL ARTIST Temperature 36.3 C (97.4 F) 06/13/2023 8:52 AM FLORAL ARTIST Respiratory Rate 16 06/13/2023 8:52 AM FLORAL ARTIST Oxygen Saturation 97% 06/13/2023 8:52 AM FLORAL ARTIST Inhaled Oxygen Concentration - - Weight 87.3 kg (192 lb 6.4 oz) 06/13/2023 8:52 A M FLORAL ARTIST Height 162.6 cm (5' 4 ) 06/13/2023 8:52 AM FLORAL ARTIST Body Mass Index 33.03 06/13/2023 8:52 AM FLORAL ARTIST Plan of Treatment Health Maintenance Due Date Last Done Comments Cervical Cancer Screening Pap Smear (Age 21 to 29) Every 3 Years 2000 Cervical Cancer Screening 2000 Kidney Health Evaluation 2000 Annual Physical 2003 Chlamydia Screening Females ages 16-24 2016 Lipid Panel 02/02/2018 02/02/2017 Hepatitis C 2018 Pneumococcal Vaccine: Pediatrics (0 to 5 Years) and At-Risk Patients (6 to 49 Years) (1 of 2 - PCV) 2019 07/30/2001, 2000, 2000, Additional history exists Meningococcal B Vaccine (2 of 2 - Bexsero SCDM 2-dose series) 07/20/2019 01/17/2019 Hemoglobin A1C 09/12/2023 06/13/2023 COVID-19 Vaccine ( season) 2024 PHQ-2 (Physician Mcgrath) 06/05/2024 06/13/2023 Diabetes: Retinopathy Eye Exam 08/27/2025 [...] Procedure Name Priority Date/Time Associated Diagnosis Comments CT GENERIC 09/17/2024 OUTSIDE LAB (SCAN ORDER) 09/17/2024 OUTSIDE LAB (SCAN ORDER) 09/17/2024 OUTSIDE LAB (SCAN ORDER) 09/17/2024 OUTSIDE LAB (SCAN ORDER) 09/17/2024 OUTSIDE LAB (SCAN ORDER) 09/17/2024 OUTSIDE LAB (SCAN ORDER) 09/17/2024 OUTSIDE LAB (SCAN ORDER) 09/17/2024 ULTRASOUND GENERIC (SCAN ORDER) 09/17/2024 OUTSIDE LAB COVID-19 (SCAN ORDER) Routine 08/20/2024 OUTSIDE LAB (SCAN ORDER) 08/20/2024 OUTSIDE LAB (SCAN ORDER) 08/20/2024 OUTSIDE LAB (SCAN ORDER) 08/20/2024 OUTSIDE LAB (SCAN ORDER) 07/22/2024 OUTSIDE PT/INR (SCAN ORDER) 07/22/2024 DIABETIC RETINOPATHY EXAM (NEGATIVE)(SCAN ORDER) Routine 08/28/2023 HEMOGLOBIN, GLYCOSYLATED Routine 06/13/2023 Type 2 diabetes mellitus with polyneuropathy from Last 3 Months or Most Recently Relevant to Health Maintenance Results * CT GENERIC (09/17/2024) Anatomical Region Laterality Modality Other 09/17/2024 Result [facility] Scanned SCANNING Final Resu lt * OUTSIDE LAB (SCAN ORDER) (09/17/2024) Only the most recent of11 resultswithin the time period is included. 09/17/2024 Result [facility] Scanned SCANNING Final Resu lt * ULTRASOUND GENERIC (SCAN ORDER) (09/17/2024) Anatomical Region Laterality Modality Other 09/17/2024 Result [facility] Scanned SCANNING Final Resu lt * OUTSIDE LAB COVID-19 (08/20/2024) CORONAVIRUS SARS COV 2 PCR (RESP) NOT DETECTED NOT DETECTED [facility] 08/20/2024 Result [email or web address] Scanned SCANNING Final Resu lt Performing Organization Address City/[facility]/ZIP Co de Phone Number HS ONBASE * OUTSIDE PT/INR (SCAN ORDER) (07/22/2024) 07/22/2024 Result [facility] Scanned SCANNING Final Resu lt * DIABETIC RETINOPATHY EXAM (NEGATIVE) (08/28/2023) Result [facility] Scanned SCANNING Final Resu lt [facility] * HEMOGLOBIN, GLYCOSYLATED (06/13/2023) HGB A1C 10.5 % [facility] 06/13/2023 Gerber Betts DO LABORATORY Final Re sult -[facility] [address] [place] [address], from Last 3 Months or Most Recently Relevant to Health Maintenance Insurance [employer] Care Teams Ict Managers Relationship Specialty Start Date End Date Gerber Betts DO [address] [place] [address] PCP - General FAMILY PRACTICE 06/13/23
[2024-09-28 16:35] VITALS: BP 140/86; PULSE 110; RESP 20; TEMP 36.4; O2SAT 100
--- OUTSIDE RECORDS SUMMARY | 2024-09-28 20:15 | XMS_ITS | Clinical Summary ---
Author Organization [facility] Address [address] [place] [address] Care Team Providers Care Stick Inserter Name Role Phone Gerber Betts Kg LOGAN [...] tabletIndications: Type 2 diabetes mellitus with polyneuropathy ([facility]) Take 1 tablet daily for 2 weeks, then take 2 tablets daily there after 60 tablet 2 4 Active Active Problems Problem Noted Date Diagnosed Date Hidradenitis suppurativa 06/13/2023 Bipolar 1 disorder, depressed ([facility]) 06/13/2020 Urine test positive for microalbuminuria 017 Overview (06/13/2023): Apr 20, 2016 - spot urine microalbumin/creatinine: 36 mg/g (< 30) Jul 19, 2016 ([place], [place]): first morning voided urine microalbumin/creatinine: 23 ug/g (< 30) Last Assessment & Plan: ? Nonspecific vs early diabetic related microalbuminuria 1. Obtain first morning voided urine specimen for microalbumin/creatinine ratio (laboratory requisition given at the time of the office visit). 2. Expectant observation. 3. Return appointment in three months. Type 2 diabetes mellitus wit h polyneuropathy ([facility]) 04/21/2016 Overview (06/13/2023): Apr 15, 2016 - [facility], [address], [place] [address] Na 143 mmol/L, K 4.4 mmol/L, Cl [...] mg/dL (< 130) Jul 19, 2016 - [facility] Cholesterol 151 mg/dL (140-199), triglycerides [...] type 2 diabetes mellitus ([facility]) 2016 Encounters Date Type Department Care Team [...] Comments Blood Pressure 104/66 06/13/2023 8:52 AM METALWORKER Pulse 66 06/13/2023 8:52 AM METALWORKER Temperature 36.3 C (97.4 F) 06/13/2023 8:52 AM METALWORKER Respiratory Rate 16 06/13/2023 8:52 AM METALWORKER Oxygen Saturation 97% 06/13/2023 8:52 AM METALWORKER Inhaled Oxygen Concentration - - Weight 87.3 kg (192 lb 6.4 oz) 06/13/2023 8:52 A M METALWORKER Height 162.6 cm (5' 4 ) 06/13/2023 8:52 AM METALWORKER Body Mass Index 33.03 06/13/2023 8:52 AM METALWORKER Plan of Treatment Health Maintenance Due Date [...] COVID-19 Vaccine ( season) 2024 PHQ-2 (Physician [place]) 06/05/2024 06/13/2023 Diabetes: Retinopathy Eye Exam 08/27/2025 [...] Anatomical Region Laterality Modality Other 09/17/2024 Result [facility] Scanned SCANNING Final Resu lt * OUTSIDE LAB (SCAN ORDER) (09/17/2024) Only the most recent of11 resultswithin the time period is included. 09/17/2024 Result [facility] Scanned SCANNING Final Resu lt * ULTRASOUND GENERIC (SCAN ORDER) (09/17/2024) Anatomical Region Laterality Modality Other 09/17/2024 Result [facility] Scanned SCANNING Final Resu lt * OUTSIDE LAB COVID-19 (08/20/2024) CORONAVIRUS SARS COV 2 PCR (RESP) NOT DETECTED NOT DETECTED [facility] 08/20/2024 Result [facility] Scanned SCANNING Final Resu lt Performing Organization Address City/[facility]/ZIP Co de Phone Number [facility] ONBASE * OUTSIDE PT/INR (SCAN ORDER) (07/22/2024) 07/22/2024 Result [facility] Scanned SCANNING Final Resu lt * DIABETIC RETINOPATHY EXAM (NEGATIVE) (08/28/2023) Result [facility] Scanned SCANNING Final Resu lt [facility] * HEMOGLOBIN, GLYCOSYLATED (06/13/2023) HGB A1C 10.[address] % [facility] 06/13/2023 Gerber Betts DO LABORATORY Final Re sult -[facility] [address] [place] [address], from Last 3 Months or Most Recently Relevant to Health Maintenance Insurance [employer] Care Teams Stick Inserter Relationship Specialty Start Date End Date Gerber Betts DO [address] [place] [address] PCP - General FAMILY PRACTICE 06/13/23
--- OUTSIDE RECORDS SUMMARY | 2024-09-28 20:15 | XMS_ITS | Clinical Summary ---
Author Organization [facility] [facility] Address [address] [place] [address] Care Team Providers Care Management Psychologist Name Role Phone JoshsteveGerber arnold Kg LOGAN Primary Care Provider + Source Comments [facility],non-owned Affiliates and Associated Physician Practices is amultiple site organization consisting of ambulatory clinics and hospital sitesin [place], [place], [place] and [place]. This disclosure is being madepursuant to the Care Everywhere program and may not contain all information available regarding this patient. Last updated 18.[facility] Allergies Active Allergy Reactions Criticality Noted Date [...] 36 mg/g (< 30) Jul 19, 2016 ([place], [place]): first morning voided urine microalbumin/creatinine: 23 ug/g (< 30) Apr 20, 2016 - spot urine microalbumin/creatinine: 36 mg/g (< 30) Jul 19, 2016 ([facility], [place], [place]): first morning voided urine microalbumin/creatinine: 23 ug/g (< 30) Last Assessment & Plan: ? Nonspecific vs early diabetic related microalbuminuria 1. Obtain first morning voided urine specimen for microalbumin/creatinine ratio (laboratory requisition given at the time of the office visit). 2. Expectant observation. 3. Return appointment in three months. Assessment & Plan (06/29/2016 12:53 PM PRESIDENT & CEO): ? Nonspecific vs early diabetic related microalbuminuria 1. Obtain first morning voided urine specimen for microalbumin/creatinine ratio (laboratory requisition given at the time of the office visit). 2. Expectant observation. 3. Return appointment in three months. Controlled type 2 diabetes bisi garcia without complication, without long-term current use of insulin 04/21/2016 Overview (06/29/2016): Apr 15, 2016 - [facility], [address] [place] [address] Na 143 mmol/L, K 4.4 mmol/L, Cl [...] months. Assessment & Plan (06/29/2016 12:48 PM PRESIDENT & CEO): Good glycemic control. 1. Metformin 1000 mg bid 2. Home glucose monitoring twice daily. 3. Daily physical exercise (60 minutes daily) to promote weight loss 4. Return appointment in three months. Assessment & Plan (04/21/2016 4:13 PM PRESIDENT & CEO): New onset, probably type II, diabetes mellitus. [...] (< 130) Jul 19, 2016 - [facility] Cholesterol 151 mg/dL (140-199), triglycerides 235 mg/dL (< 150), HDL- cholesterol 37 mg/dL (> 40), LDL-cholesterol 67 (< 130) cholesterol 261 mg/dL (100-170); triglyceride 925 mg/dL (140-199), HDL- cholesterol 41 mg/dL (< 150), LDL-cholesterol mg/dL (< 130) Jul 19, 2016 - [facility] Cholesterol 151 mg/dL (140-199), triglycerides [...] sweets/fats Assessment & Plan (06/29/2016 12:45 PM PRESIDENT & CEO): 1. Dietary counseling provided 2. Fasting lipid profile (laboratory requisition given at the time of the office visit). .3 Return appointment in three months. Assessment & Plan (04/21/2016 4:13 PM PRESIDENT & CEO): ? Familial 1. Fasting lipid profile 2. [...] BURGOS) Assessment & Plan (06/29/2016 12:46 PM PRESIDENT & CEO): ? Nonspecific elevation vs evolving BURGOS 1. Repeat serum ALT level (laboratory requisition given at the time of the office visit). 3. Expectant observation. 3. Return appointment in three months. Assessment & Plan (04/21/2016 4:14 PM PRESIDENT & CEO): ? BURGOS 1. Repeat serum AST/ALT in one month. 2. Consider referral to Pediatric Gastroenterology Type 2 diabetes mellitus with polyneuropathy Overview (07/16/2024): Apr 15, 2016 - [facility], [address], [place], [place] [address] Na 143 mmol/L, K 4.4 mmol/L, Cl [...] Type Department Care Team Description 09/17/2024 Telephone [facility] MATERNAL/ EVALUATION UNIT [address] [place] [address]. [address] [place] [address] Myesha Farr GC Results (Chromosome Analysis) 09/13/2024 Telephone [facility] PHYS OB [address] [place] [address] Alessio Quezada MD Results 09/06/2024 1:35 PM CDT - 09/06/2024 11:59 PM CDT Hospital Encounter [facility] MATERNAL/ EVALUATION UNIT [address] [place] [address] Jered Solis MD Discharge Disposition: Home or Self Care 09/06/2024 Travel 08/16/2024 Telephone [facility] MATERNAL/ EVALUATION UNIT [address] [place] [address] Myesha Farr GC Follow-up 08/06/2024 Telephone [facility] MATERNAL/ EVALUATION UNIT [address] [place] [address] Myesha Farr GC Results 07/29/2024 Telephone [facility] - [facility] SPECIALIST [address] [place] [id number] Karla Zamudio MD Question 07/26/2024 12:11 PM PRESIDENT & CEO - 07/26/2024 11:59 PM PRESIDENT & CEO Hospital Encounter [facility] MATERNAL/ EVALUATION UNIT [address] [place] [address] Jered Solis MD Discharge Disposition: Home or Self Care 07/26/2024 Travel 07/25/2024 Telephone [facility] MATERNAL/ EVALUATION UNIT [address] [place] [address] Mercedes Tejada Scheduling 07/24/2024 11:30 AM PRESIDENT & CEO - 07/24/2024 2:19 PM PRESIDENT & CEO Emergency ER at [facility] [address] [place] [id number] Vaginal bleeding Discharge Disposition: Home or Self Care 07/24/2024 Travel 07/24/2024 Telephone [facility] MATERNAL/ EVALUATION UNIT [address] [place] [address] Janice Duarte RN Vaginal Bleeding 07/18/2024 12:16 PM PRESIDENT & CEO Anesthesia Event [facility] PERIOPERATIVE [address] [place] [address] Lamin Llanes MD 07/18/2024 12:05 PM PRESIDENT & CEO - 07/18/2024 1:02 PM PRESIDENT & CEO Surgery [facility] PERIOPERATIVE [address] [place] [address] Karla Zamudio MD SUCTION DILATION AND CURETTAGE 07/18/2024 9:32 AM PRESIDENT & CEO - 07/18/2024 3:47 PM PRESIDENT & CEO Hospital Encounter [facility] PERIOPERATIVE [address] [place] [address] Karla Zamudio MD Surgery General Discharge Disposition: Home or Self Care 07/18/2024 Travel 07/17/2024 Patient Outreach [facility] MATERNAL/ EVALUATION UNIT [address] [place] [address] Yazmin Blackmon RN Care Management (Received a referral for SDOH needs. US report states no cardiac activity and pt has a scheduled D&C tomorrow. Will close this referral. ) 07/16/2024 11:34 AM PRESIDENT & CEO - 07/16/2024 11:59 PM PRESIDENT & CEO Hospital Encounter [facility] MATERNAL/ EVALUATION UNIT [address] [place] [address] Kimmy Sanderson MD Discharge Disposition: Home or Self Care 07/16/2024 11:33 AM PRESIDENT & CEO Hospital Encounter [facility] MATERNAL/ EVALUATION UNIT [address] [place] [address] Kimmy Sanderson MD Discharge Disposition: Home or Self Care 07/16/2024 11:32 AM PRESIDENT & CEO Hospital Encounter [facility] MATERNAL/ EVALUATION UNIT [address] [place] [address] Alphonse Quispe MD Discharge Disposition: Home or Self Care 07/16/2024 11:31 AM PRESIDENT & CEO Hospital Encounter [facility] MATERNAL/ EVALUATION UNIT [address] [place] [address] Alphonse Quispe MD Discharge Disposition: Home or Self Care 07/16/2024 Travel 07/11/2024 Telephone [facility] MATERNAL/ EVALUATION UNIT [address] [place] [address] Radha Romero, sod stripper from Last 3 Months Immunizations Immunization Administration [...] medical care, and heating? Somewhat hard 07/16/2024 [facility] Occup[facility] ional [facility] - Occupational Stress [...] things needed for daily living? No 07/16/2024 [place] Depression Scale Answer Date Recorded [place] Depression Scale Total 11 07/16/2024 The thought [...] any time in the past 12 m [facility], were you homeless or living in a alf (including now)? No 07/16/2024 Estimated Date of Delivery Comme nts Yes 01/26/2025 Based on last me nstrual period of 04/21/2024 Sex and Gender Information Value Date Recorded Sex Assigned at Not on file Legal Sex Female 6:36 AM PRESIDENT & CEO Gender Identity Not on file Sexual Orientation Not on file Last Filed Vital Signs Vital Sign Reading Time Taken Comments Blood Pressure 131/74 09/06/2024 1:42 PM CDT Pulse 98 09/06/2024 1:42 PM CDT Temperature 36.7 C (98 F) 07/24/2024 10:06 AM PRESIDENT & CEO Respiratory Rate 17 07/24/2024 10:06 AM PRESIDENT & CEO Oxygen Saturation 99% 07/24/2024 10:06 AM PRESIDENT & CEO Inhaled Oxygen Concentration - - Weight 87 kg (191 lb 12.8 oz) 09/06/2024 1:42 PM CDT Height 162.6 cm (5' 4 ) 07/18/2024 10:04 AM PRESIDENT & CEO Body Mass Index 32.92 07/18/2024 10:04 AM PRESIDENT & CEO Plan of Treatment Upcoming Encounters Date Type Department Care Team (Late st Contact Info) Description 09/12/2025 2:00 PM CDT Appointment [facility] MATERNAL/ EVALUATION UNIT [address] [place] [address] [address] [place] [address] Health Maintenance Due Date Last Done Comments [...] current HEMOGLOBIN A1C Routine 07/26/2024 1:10 PM PRESIDENT & CEO Controlled type 2 diabetes mellitus without complication, without long-term current use of insulin US PELVIS W TRANSVAG W DOP NON OB STAT 07/24/2024 12:42 PM PRESIDENT & CEO Vaginal bleeding TYPE + SCREEN PANEL STAT 07/24/2024 1 0:39 AM PRESIDENT & CEO HCG BETA BLOOD QUANTITATIVE STAT 07/24/2024 10:39 AM PRESIDENT & CEO COMPREHENSIVE METABOLIC PANEL STAT 07/24/2024 10:39 AM PRESIDENT & CEO CBC W AUTO DIFFERENTIAL STAT 07/24/2024 10:39 AM PRESIDENT & CEO CARDIAC RHYTHM STRIP ORDER 07/22/2024 10:40 PM PRESIDENT & CEO GLUCOSE - POINT OF CARE Routine 07/18/2024 1:06 PM PRESIDENT & CEO PATHOLOGY TISSUE EXAM (STL) Routine 07/18/2024 12:37 PM PRESIDENT & CEO Diagnosis unknown LARYNGEAL MASK AIRWAY Routine 07/18/2024 12:23 PM PRESIDENT & CEO CA SURG RX MISSED MISCARRIAGE,1ST TRI 07/18/2024 11:49 AM PRESIDENT & CEO Diagnosis unknown BLOOD TYPE VERIFICATION Routine 07/18/2024 10:25 AM PRESIDENT & CEO Pre-op testing TYPE + SCREEN PANEL BERONICA 07/18/2024 1 0:19 AM PRESIDENT & CEO Pre-op testing GLUCOSE - POINT OF CARE Routine 07/18/2024 10:18 AM PRESIDENT & CEO BETA-2 GLYCOPROTEIN 1 ANTIBODY IGG/IGM PANEL Routine 07/16/2024 3:37 PM PRESIDENT & CEO Recurrent loss without current CARDIOLIPIN ANTIBODY IGG/IGM PANEL Routine 07/16/2024 3:37 PM PRESIDENT & CEO Recurrent loss without current LUPUS ANTICOAGULANT PANEL Routine 07/16/2024 3:37 PM PRESIDENT & CEO Recurrent loss without current TSH REFLEX FREE T4 Routine 07/16/2024 3: 37 PM PRESIDENT & CEO Recurrent loss without current SONOGRAM - COMPLETE Routine 07/16/2024 1 :23 PM PRESIDENT & CEO MICROALB/CREAT RATIO URINE RANDOM PANEL Routine 02/02/2017 2:38 PM CDT Controlled type 2 diabetes mellitus without complication, without long-term current use of insulin from Last 3 Months or Most Recently Relevant to Health Maintenance Results * PAP IG LB RFLX HPV APTIMA ASCU (09/06/2024 2:14 PM CDT) Diagnosis Comment 09/11/2024 11:10 AM CDT [facility] ([facility]) Comment: NEGATIVE FOR INTRAEPITHELIAL LESION OR MALIGNANCY. THIS SPECIMEN WAS RESCREENED PART OF OUR APRON OPERATOR PROGRAM. Specimen Adequacy Comment 025 11:10 AM CDT [facility] ([facility]) Comment: Satisfactory for evaluation. Endocervical and/or squamous metaplastic cells (endocervical component) are present. Performed by Comment 09/11/2024 11:10 AM CDT [facility] ([facility]) Comment:Riley Cancino, Cytot echnologist (ASCP) QC Reviewed by Comment 09/11/2024 11:10 AM CDT [facility] ([facility]) Comment:Luz Maria guajardo, Ethyl Blender (ASCP) Comment . 09/11/2024 11:10 AM CDT [facility] ([facility]) Note Comment 09/11/2024 11:10 AM CDT [facility] ([facility]) Comment: The Pap smear is a screening test designed to aid in the detection of premalignant and malignant conditions of the uterine cervix. It is not a diagnostic procedure and should not be used as the sole means of detecting cervical cancer. Both false-positive and false-negative reports do occur. IGLBP CPT Code Automation Comment 09/11/2024 11:10 AM CDT [facility] ([facility]) Comment: This liquid based ThinPrep(R) pap test was screened with the use of an image guided system. Note Comment 09/11/2024 11:10 AM CDT [facility] ([facility]) Comment: The HPV DNA reflex criteria were not met with this specimen result therefore, no HPV testing was performed. Pathology/Cytolo gy ENTIRE ENDOCERVIX / Unknown Collection / Unknown 09/06/2024 2:14 PM CDT 09/06/2024 2:48 PM CDT Narrative [facility] ([facility]) - 09/11/2024 11:10 AM CDT Performed at: 01 - [address] [place] [id number] Urban Renewal Manager: Rebeka Vargas MD, Phone: [phone] Specimen Comment: No. of containers..01 ThinPrep Vial Jered Solis MD LAB - PATHOLOGY/CYTOLOGY ORDER ELIOT Final Result [facility] ([facility]) [address] [place] [address] * CYTOGENOMIC SNP MICROARRAY (09/06/2024 2:00 PM CDT) Pathologist [facility] Cytogenomic SNP Microarray Normal Normal 09/18/2024 9:14 AM CDT [facility] ([facility]) Comment: Test Performed: Cytogenomic SNP Microarray (AGRICULTURAL CONSULTANT SNP) Specimen Type: Peripheral blood Indication for Testing: Recurrent loss --- RESULT SUMMARY Normal Microarray Result (Female) --- RESULT DESCRIPTION No clinically significant copy number changes or regions of homozygosity were detected. INTERPRETATION This analysis showed a normal result. Health care providers with questions may contact an [facility] genetic counselor at ext. [phone]. Cytogenomic Nomenclature (ISCN): arr (X,[id number])x2 Technical Information - This assay was performed using the BringShare Suite (Zoomingo) according to validated protocols within the Genomic Microarray Laboratory at [facility] - This assay is designed to detect alterations to DNA copy number state (gains and losses) as well as copy-neutral alterations (regions of homozygosity; ELIAS) that indicate an absence- or bfje-er-gjoessayclswey (AOH or SELAM) - AOH may be present due to parental relatedness (consanguinity) or uniparental disomy (UPD) - SELAM may be present due to acquired UPD (segmental or whole chromosome) - The detection sensitivity (resolution) for any particular genomic region may vary dependent upon the number of probes (markers), probe spacing, and thresholds for copy number and ELIAS determination - The CitySourced HD array contains 2.67 million markers across [...] performed in accordance with recommendations by the [employer] ([employer]), [...] used in CNV classification, please refer to [facility] Constitutional CNV Assertion Criteria, which can be found on [facility]'s Genetics website at [email or web address]/genetics - CNVs classified as likely benign or [...] to improve understanding of specific genetic variants, [facility] submits HIPAA-compliant, de-identified (cannot be traced back to the patient) genetic test results and health information to public databases. The confidentiality of each sample is maintained. If you prefer that your test result not be shared, call [facility] at ext. [phone]. Your de-identified information will not be disclosed to public databases after your request is received, but a separate request is required for each genetic test. Additionally, patients have the opportunity to participate in patient registries and research. To learn more, visit [employer]'s Genetics website at [email or web address]/genetics. This result has been reviewed and approved by Janis Garrison, PhD, [facility] A portion of this analysis was performed at the following location(s): [facility] Site CG-[place]#2 INTERPRETIVE INFORMATION: CYTOGENOMIC SNP MICROARRAY This test was developed and its performance characteristics determined by [facility]. It has not been cleared or approved by the US Food and Drug Administration. This test was performed in a CLIA certified laboratory and is intended for clinical purposes. Counseling and informed consent are recommended for genetic testing. Consent forms are available online. Performed By: [facility] [address] [place] [address] Bill Clerk: Zak Garcia MD, PhD CLIA Number: [id number] Blood BLOOD SPECIMEN / Unknown Lab Venipuncture / Unknown 09/06/2024 2:00 PM CDT 09/06/2024 2:42 PM CDT Jered Solis MD LAB - CHEMISTRY ORDERABLES Fin al Result [facility]) [address] [id number], [facility] * CHROMOSOME ANALYSIS BLOOD PANEL (09/06/2024 2:00 PM CDT) [facility] Chromosome Analysis Peripheral Blood See Note Normal 09/17/2024 11:46 AM CDT [facility]) Comment: Test Performed: Chromosome Analysis Specimen Type: [...] care providers with questions may contact an [facility] genetic counselor at ext. [phone]. NOTE: Genomic microarray analysis will be reported separately under [facility] accession [id number]. This result has been reviewed and approved by Saqib Cervantes, PhD, [employer] A portion of this analysis was performed at the following location(s): [facility] Site [facility]#1 [facility] INTERPRETIVE INFORMATION: Chromosome Analysis Constitutional Blood This test was developed and its performance characteristics determined by [facility]. It has not been cleared or approved by the US Food and Drug Administration. This test was performed in a CLIA certified laboratory and is intended for clinical purposes. Counseling and informed consent are recommended for genetic testing. Consent forms are available online. EER Chromosome Analysis Peripheral See Note 09/17/2024 11:46 AM CDT [facility] ([facility]) Comment: Authorized individuals can access the [employer] Enhanced Report with an [facility] Connect account using the following link. Your local lab can assist you in obtaining the patient report if you don't have a Connect account. [email or web address] Performed By: [facility] [address] [place] [address] Bill Clerk: Zak Garcia MD, PhD [place] Number: [id number] Blood BLOOD SPECIMEN / Unknown Lab Venipuncture / Unknown 09/06/2024 2:00 PM CDT 09/06/2024 2:42 PM CDT Jered Solis MD LAB - PATHOLOGY/CYTOLOGY ORDER ELIOT Final Result [facility]) [address] * (ABNORMAL) HEMOGLOBIN A1C (07/26/2024 1:10 PM PRESIDENT & CEO) Hemoglobin A1c 8.2(H) <5.7 % 07/26/2024 3:17 PM PRESIDENT & CEO [facility] Estimated Average Glucose 189 mg/dL 07/26/2024 3:17 PM PRESIDENT & CEO [facility] Blood BLOOD SPECIMEN / Unknown Venipuncture / Unknown 07/26/2024 1:10 PM PRESIDENT & CEO 07/26/2024 3:01 PM PRESIDENT & CEO Narrative [facility] - 07/26/2024 3:17 PM PRESIDENT & CEO HbA1c Interpretation: Normal: < 5.7% Pre-diabetes: 5.7-6.4% [...] ORDERABLES Fin al Result Performing Organization Address City/State/[facility] Co de Phone Number [facility] [address] [place] [address] * US Pelvis W Transvag W Dop Non Ob (07/24/2024 12:42 PM PRESIDENT & CEO) Anatomical Region Laterality Modality Pelvis Ultrasound 07/24/2024 12:5 0 PM PRESIDENT & CEO Narrative 07/24/2024 12:52 PM PRESIDENT & CEO PROCEDURE: US PELVIS W TRANSVAG W DOP NON OB, DATE/TIME OF EXAM: 07/24/2024 12:47 PM, LOCATION [facility] INDICATION: N93.9: Abnormal uterine and [...] DATE/TIME OF EXAM: 07/24/2024 12:47 PM, LOCATION [facility] INDICATION: N93.9: Abnormal uterine and [...] TYPE + SCREEN PANEL (07/24/2024 10:39 AM PRESIDENT & CEO) Only the most recent of2 resultswithin the time period is included. ABO Rh O POS 07/24/2024 11:30 AM [facility] Comment:History checked. Antibody Screen NEG 11:30 AM [facility] Blood Bank BLOOD SPECIMEN / Unknown Venipuncture / Unknown 07/24/2024 10:39 AM PRESIDENT & CEO 07/24/2024 10:48 AM PRESIDENT & CEO Andrea Rawls APNP-[employer] LAB - BLOOD BANK ORDER ELIOT Final Result [facility] [address] [place] [address] * (ABNORMAL) CBC W AUTO DIFFERENTIAL (07/24/2024 10:39 AM PRESIDENT & CEO) [facility] Signature WBC 11.4(H) 4.0 - 10.7 x10E9/L 07/24/2024 10:50 AM [facility] RBC Count 3.84(L) 3.90 - 5.20 x10E12/L 07/24/2024 10:50 AM [facility] Hemoglobin 10.5(L) 11.9 - 15.8 g/dL 07/24/2024 10:50 AM [facility] Hematocrit 31.6(L) 34.8 - 46.1 % 07/24/2024 10:50 AM [facility] MCV 82.3 80.0 - 98.0 fL 07/24/2024 10:50 AM [facility] MCH 27.3 26.7 - 33.6 pg 07/24/2024 10:50 AM [facility] MCHC 33.2 31.7 - 36.3 g/dL 07/24/2024 10:50 AM [facility] RDW-CV 13.4 11.3 - 14.8 % 07/24/2024 10:50 AM [facility] Platelet Count 332 150 - 420 x10E9/L 07/24/2024 10:50 AM [facility] MPV 11.2 7.8 - 11.4 fL 07/24/2024 10:50 AM [facility] Neutrophil % 76.0(H) 41.0 - 74.0 % 07/24/2024 10:50 AM [facility] Lymphocyte % 15.9(L) 17.0 - 47.0 % 07/24/2024 10:50 AM [facility] Monocyte % 5.1 3.0 - 11.0 % 07/24/2024 10:50 AM [facility] Eosinophil % 1.8 0.0 - 7.0 % 07/24/2024 10:50 AM [facility] Basophil % 0.4 0.0 - 1.6 % 07/24/2024 10:50 AM [facility] Immature Granulocytes % 0.8 0.0 - 1.0 % 07/24/2024 10:50 AM [facility] Neutrophil Absolute 8.68(H) 1.60 - 7.50 x10E9/L 07/24/2024 10:50 AM [facility] Lymphocyte Absolute 1.81 1.00 - 4.40 x10E9/L 07/24/2024 10:50 AM [facility] Monocyte Absolute 0.58 0.15 - 1.00 x10E9/L 07/24/2024 10:50 AM [facility] Eosinophil Absolute 0.21 0.00 - 0.60 x10E9/L 07/24/2024 10:50 AM [facility] Basophil Absolute 0.04 0.00 - 0.13 x10E9/L 07/24/2024 10:50 AM [facility] Blood BLOOD SPECIMEN / Unknown Venipuncture / Unknown 07/24/2024 10:39 AM [facility] 07/24/2024 10:48 AM [facility] Andrea Rawls APNP-[employer] LAB - HEMATOLOGY ORDER ELIOT Final Result [facility] [address] [place] [address] * (ABNORMAL) COMPREHENSIVE METABOLIC PANEL (07/24/2024 10:39 AM [facility]) Glucose 275(H) 70 - 99 mg/dL 07/24/2024 11:03 AM [facility] Sodium 136 136 - 145 mmol/L 07/24/2024 11:03 AM [facility] Potassium 4.4 3.5 - 5.1 mmol/L 07/24/2024 11:03 AM [facility] Chloride 106 98 - 107 mmol/L 07/24/2024 11:03 AM [facility] CO2 21(L) 22 - 29 mmol/L 07/24/2024 11:03 AM [facility] Calcium 8.8 8.4 - 10.4 mg/dL 07/24/2024 11:03 AM [facility] Anion Gap 9 6 - 16 mmol/L 07/24/2024 11:03 AM [facility] BUN 14 5.3 - 18.7 mg/dL 07/24/2024 11:03 AM [facility] Creatinine 0.67 0.57 - 1.11 mg/dL 07/24/2024 11:03 AM [facility] Alkaline Phosphatase 55 40 - 150 U/L 07/24/2024 11:03 AM [facility] [facility] ALT 18 0 - 55 U/L 07/24/2024 11:03 AM [facility] AST 21 5 - 34 U/L 07/24/2024 11:03 AM [facility] Protein Total 7.1 6.4 - 8.3 gm/dL 07/24/2024 11:03 AM [facility] Albumin 3.3(L) 3.4 - 5.0 gm/dL 07/24/2024 11:03 AM [facility] Bilirubin Total 0.3 0.2 - 1.2 mg/dL 07/24/2024 11:03 AM [facility] eGFR by CKD-EPI >90 >=90 mL/min/1.7 3 m2 07/24/2024 11:03 AM [facility] Blood BLOOD SPECIMEN / Unknown Venipuncture / Unknown 07/24/2024 10:39 AM PRESIDENT & CEO 07/24/2024 10:48 AM PRESIDENT & CEO Andrea [facility] - CHEMISTRY ORDERA BLES Final Result [facility] [address] [place] [address] * HCG BETA BLOOD QUANTITATIVE (07/24/2024 10:39 AM PRESIDENT & CEO) Pathologist [facility] hCG Quantitative 365.89 mIU/mL 07/24/19 11:47 AM [facility] Blood BLOOD SPECIMEN / Unknown Venipuncture / Unknown 07/24/2024 10:39 AM PRESIDENT & CEO 07/24/2024 10:48 AM PRESIDENT & CEO Narrative [facility] - 07/24/2024 11:47 AM PRESIDENT & CEO hCG Reference Range, mIU/mL: Non Females 0-6.0 [...] FSH >20 IU/L makes unlikely. Andrea Rawls APNP-[employer] LAB - CHEMISTRY ORDERA BLES Final Result [facility] [address] [place] [address] * CARDIAC RHYTHM STRIP ORDER (07/22/2024 10:40 PM PRESIDENT & CEO) Narrative 07/22/2024 10:40 PM PRESIDENT & CEO Ordered by an unspecified provider. Scanned Document CARDIAC SERVICES ORDERABLES Fin al Result * (ABNORMAL) GLUCOSE - POINT OF CARE (07/18/2024 1:06 PM PRESIDENT & CEO) Only the most recent of2 resultswithin the time period is included. Glucose WB/POC 133(H) 70 - 99 mg/dL 07/20/2024 1:56 AM PRESIDENT & CEO [facility] Specimen Type Cap Fingerstick 2024 1:56 AM PRESIDENT & CEO [facility] Blood BLOOD SPECIMEN / Unknown 07/18/2024 1:06 PM PRESIDENT & CEO 07/20/2024 1:56 AM PRESIDENT & CEO Karla Zamudio MD LAB - POINT OF CARE ORDERABLES F inal Result [facility] [address] [place] [address] * PATHOLOGY TISSUE EXAM (STL) (07/18/2024 12:37 PM PRESIDENT & CEO) Case Report Surgical Pathology Report Case: [id number] Authorizing Provider: Karla Zamudio MD Collected: 07/18/2024 12:37 PM Ordering Location: [facility] Received: 07/18/2024 01:15 PM Pathologist: Kirt Billings MD Specimen: Products of Conception 07/19/2024 9:40 AM [facility] Final Diagnosis Uterine contents, dilation and curettage: Products of conception. 07/19/2024 9:40 AM [facility] Clinical History Missed 07/19/2024 9:40 AM [facility] Gross Description The specimen is identified with the patient's name and date of . Received in formalin, labeled specimen A, products of conception are multiple fragments of soft pink brasher tissue admixed with blood clot measuring 5 x 5 x 5 cm in aggregate. parts are not identified. Physical Science Aide sections submitted in cassette [id number]. JULIO CESAR/DAVID 07/19/2024 9:40 AM [facility] Microscopic Description Sections show immature chorionic villi and decidua. 07/19/2024 9:40 AM [facility] Pathologist Location at [facility] 07/19/2024 9:40 AM [facility] Disclaimer All histochemical and/or immunohistochemical results are interpreted with controls that demonstrate appropriate staining reactions before reporting results. Note on use of immunocytochemistry reagents: This test was developed and its performance characteristic determined by [facility], Department of Laboratory Medicine. [...] be interpreted with caution. 07/19/2024 9:40 AM [facility] Embedded Images 07/19/2024 9:40 AM [facility] Pathology/Cytolo gy PRODUCTS OF CONCEPTION TISSUE SPECIMEN / Unknown 07/18/2024 12:37 PM PRESIDENT & CEO 07/18/2024 1:15 PM PRESIDENT & CEO Comment:Pre-op diagnosis: Diagnosis unknown [R69] Karla Zamudio MD LAB - PATHOLOGY/CYTOLOGY ORDERAB LES Final Result Performing Organization Address [facility] Co de Phone Number [facility] [address] [place] [address] * LARYNGEAL MASK AIRWAY (07/18/2024 12:23 PM PRESIDENT & CEO) Narrative Alessio Fuentes APRN-CRNA - 07/18/2024 12:23 PM PRESIDENT & CEO Alessio Fuentes APRN-CRNA 07/18/2024 12:23 PM LMA [...] * BLOOD TYPE VERIFICATION (07/18/2024 10:25 AM PRESIDENT & CEO) ABO Rh O POS 07/18/2024 10:55 AM PRESIDENT & CEO [facility] Blood Bank BLOOD SPECIMEN / Unknown Venipuncture / Unknown 07/18/2024 10:25 AM PRESIDENT & CEO 07/18/2024 10:26 AM PRESIDENT & CEO Artemio Casanova MD LAB - BLOOD BANK ORDERABLES Deidra l Result [facility] [address] [place] [address] * TSH REFLEX FREE T4 (07/16/2024 3:37 PM PRESIDENT & CEO) TSH 0.466 0.350 - 4.940 uIU/mL 07/16/2024 4:32 PM PRESIDENT & CEO [facility] Blood BLOOD SPECIMEN / Unknown Venipuncture / Unknown 07/16/2024 3:37 PM PRESIDENT & CEO 07/16/2024 3:51 PM PRESIDENT & CEO Gerber Bah MD LAB - CHEMISTRY ORDERAB LES Final Result [facility] [address] [place] [address] * LUPUS ANTICOAGULANT PANEL (07/16/2024 3:37 PM PRESIDENT & CEO) APTT 27.4 23.0 - 38.4 Seconds 07/19/2024 10:07 AM [facility] PT 12.9 12.1 - 14.8 Seconds [...] Unknown Venipuncture / Unknown 07/16/2024 3:37 PM PRESIDENT & CEO 07/16/2024 3:51 PM PRESIDENT & CEO us Gerber Bah MD LAB - HEMATOLOGY ORDERA BLES Final Result [facility] [address] [place] [address], [facility] [phone] * CARDIOLIPIN ANTIBODY IGG/IGM PANEL (07/16/2024 3:37 PM PRESIDENT & CEO) Pathologist [facility] Cardiolipin Antibody IgG <9 0 - 14 GPL U/mL 07/18/2024 3:07 PM PRESIDENT & CEO [facility] ([facility]) Comment: Negative: <15 Indeterminate: 15 - 20 Low-Med Positive: >20 - 80 High Positive: >80 Cardiolipin Antibody IgM <9 0 - 12 MPL U/mL 07/18/2024 3:07 PM PRESIDENT & CEO [facility] ([facility]) Comment: Negative: <13 Indeterminate: 13 - 20 Low-Med Positive: >20 - 80 High Positive: >80 Blood BLOOD SPECIMEN / Unknown Venipuncture / Unknown 07/16/2024 3:37 PM PRESIDENT & CEO 07/16/2024 3:51 PM PRESIDENT & CEO Narrative [facility] ([facility]) - 07/18/2024 3:07 PM PRESIDENT & CEO Performed at: [address] [id number] Urban Renewal Manager: Ad Harris PhD, Phone: [phone] Gerber Bah MD LAB - SEROLOGY ORDERABL ES Final Result [facility]) [address] [place] [address] * BETA-2 GLYCOPROTEIN 1 ANTIBODY IGG/IGM PANEL (07/16/2024 3:37 PM PRESIDENT & CEO) [facility] Beta-2 Glycoprotein I Antibody IgG <9 0 - 20 GPI IgG units 07/18/2024 2:08 PM PRESIDENT & CEO [facility] ([facility]) Comment: The reference interval reflects a 3SD or 99th percentile interval, which is thought to represent a potentially clinically significant result in accordance with the International Consensus Statement on the classification criteria for definitive antiphospholipid syndrome (APS). J Thromb Haem 2006;4:295-306. Beta-2 Glycoprotein I Antibody IgM <9 0 - 32 GPI IgM units 07/18/2024 2:08 PM PRESIDENT & CEO [facility] ([facility]) Comment: The reference interval reflects a 3SD or 99th percentile interval, which is thought to represent a potentially clinically significant result in accordance with the International Consensus Statement on the classification criteria for definitive antiphospholipid syndrome (APS). J Thromb Haem 2006;4:295-306. Blood BLOOD SPECIMEN / Unknown Venipuncture / Unknown 07/16/2024 3:37 PM PRESIDENT & CEO 07/16/2024 3:51 PM PRESIDENT & CEO Narrative [facility] ([facility]) - 07/18/2024 2:08 PM PRESIDENT & CEO Performed at: - [address] [id number] Urban Renewal Manager: Ad Harris PhD, Phone: [phone] us Gerber Bah MD LAB - CHEMISTRY ORDERAB LES Final Result [facility] ([facility]) [address] [place] [address] * SONOGRAM - COMPLETE (07/16/2024 1:23 PM PRESIDENT & CEO) Linked Results Indication ======== Dating/NT Abnormal NIPT [...] discuss plan of care. Coding ====== Procedures 85054: 1st Trimester [facility] PACS Anatomical Region Laterality Modality Other 07/16/2024 1:23 PM PRESIDENT & CEO us Augusta Leggett MD [facility] ORDERABLES Edited R esult - Final * (ABNORMAL) MICROALB/CREAT RATIO URINE RANDOM PANEL (02/02/2017 2:38 PM CDT) Creatinine Urine 103.98 mg/dL 02/03/20 17 4:18 PM CDT [facility] Microalbumin Urine 3.3(H) <1.7 mg/dL 02/02/2017 4:18 PM CDT [facility] Microalbumin/Crea tinine Ratio 32(H) <30 mg/g 02/02/2017 4:18 PM CDT [facility] Urine URINE SPECIMEN OBTAINED BY CLEAN CATCH PROCEDURE / Unknown Collection / Unknown 02/02/2017 2:38 PM CDT 02/02/2017 3:10 PM CDT us Deon Monteiro MD LAB - URINE CHEMISTRY ORDERABLES Final Result [facility] [address] [facility] [place] [address] from Last 3 Months or Most Recently Relevant to Health Maintenance Insurance Care Teams Management Psychologist Relationship Specialty Start Date End Date Gerber Betts DO [address] [place] [id number] PCP - General Family Medicine Geriatric Medicine 07/18/24
--- OUTSIDE RECORDS SUMMARY | 2024-09-28 20:15 | XMS_ITS | Encounter Summary ---
Author Organization [facility] Address [address] [place] [address] Care Team Providers Care Technical Assistance Consultant Name Role Phone Michael Colorado MD Primary Care Provider [phone] Gerber Betts DO Primary Care Provider + Reason for Visit * Reason Onset Date Comments Parent Return Call 04/25/2016 Mom returned your call from last week. 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 Gender Identity Not on file Sexual Orientation Not on file documented as of this encounter Plan of Treatment Upcoming Encounters Date Type Department Care Team ([facility] Contact Info) Description 09/12/2025 2:00 PM CDT Appointment [facility]ATION UN[facility] [address] [place] [phone] documented as of this encounter Visit Diagnoses Not on filedocumented in this encounter Care Teams Technical Assistance Consultant Relationship Specialty Start Date End Date Michael Colorado MD [address] [place] [address] [address] [place] [address] PCP - General Pediatrics 04/20/16 07/17/24 Gerber Betts DO [address] [place] [address] PCP - General Family Medicine Geriatric Medicine 07/18/24 documented as of this encounter
--- NOTE | 2024-09-28 20:17 | ED_ITS ---
HPI - General Adult General Chief complaint: Extremity Injury, Lower Stated complaint: left leg injury secondary to fall Time Seen by Provider: 09/28/24 19:37 History of Present Illness HPI narrative: This is a 24-year-old female presenting to the ED after a ground level fall. Patient was walking on the sidewalk when she stepped onto the grass and collapsed. She injured her left knee. She has been able to bear weight but has significant pain. She has not been having any popping or sliding. She is still able move her leg Related Data Home Medications ?Medication ?Instructions ?Recorded ?Confirmed ?Last Taken ?Type aripiprazole 10 mg tablet 10 mg PO DAILY 03/05/23 03/05/23 1 Day Ago History ~03/04/23 clonidine HCl 0.2 mg tablet 0.2 mg PO HS 03/05/23 03/05/23 1 Day Ago History ~03/04/23 dextroamphetamine-amphetamine ER 20 mg PO DAILY 03/05/23 03/05/23 1 Day Ago History 20 mg 24hr capsule,extend release ~03/04/23 gabapentin 100 mg capsule 100 mg PO TID 03/05/23 03/05/23 1 Day Ago History ~03/04/23 insulin detemir U-100 100 unit/mL 10 unit subcut BID 03/05/23 03/06/23 1 Day Ago History (3 mL) subcutaneous pen ~03/04/23 Allergies Allergy/AdvReac Type Severity Reaction Status Date / Time morphine Allergy Hives Verified 09/28/24 16:12 [facility] Past Medical History Medical History Chlamydia Treated (approx 2020) Hidradenitis suppurativa of left axilla ADHD (attention deficit hyperactivity disorder) Bipolar disorder Diabetic peripheral neuropathy ROSIE (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) Surgical History Surgical History No pertinent past surgical history Family History Family History Father Bipolar disorder Schizophrenia Heart failure Mother Age: 37 Schizophrenia Diabetes mellitus Hypertension Bipolar disorder COPD (chronic obstructive pulmonary disease) Chronic kidney disease Social History Social History (Reviewed 08/20/24 @ 01:39 by RASHAWN Dinh Social History: She has been involved with her boyfriend for the last 2 years. She has lived with her boyfriend and his family for the last year. 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 She reports that she drinks 5-6 alcoholic beverages every couple of months. Code status: Full code Smoking status: Never smoker Alcohol intake: current Drinks per week: 3 Substance use: former Substance use type: marijuana Last use: 2019 Lack of Transportation: No Lack of Food: Never True Current Housing: I Have Housing Concerned About Future Housing: No Difficulty Paying Gas/Electric Bills: No Difficulty Paying for Meds: No Currently Unemployed: No Education: High School Diploma/GED Difficulty w/ Childcare or Family Care: No Spiritual care concerns: No Exam Narrative: APPEARANCE: No apparent distress. Head: atraumatic. EYES: EOMI, NOSE: Atraumatic NECK: Trachea midline RESPIRATORY: No increased rate of breathing CARDIOVASCULAR: RRR, ABDOMINAL: Non-distended MUSCULOSKELETAl: Focal exam of the left knee revealed no swelling deformity or bruising. Range of motion is intact. No joint laxity. Pulses are +2. All compartments are soft. Cap refills normal. NEURO: Alert. Moving 4/4 extremities SKIN:: Warm, dry. Normal color PSYCHIATRIC: Normal affect Course Vital Signs Vital signs: Vital Signs Temperature 97.6 F 09/28/24 16:35 Pulse Rate 110 H 09/28/24 16:35 Respiratory Rate 20 09/28/24 16:35 Blood Pressure 140/86 09/28/24 16:35 Pulse Oximetry 100 09/28/24 16:35 Oxygen Delivery Room Air 09/28/24 16:35 Temperature 97.6 F 09/28/24 16:35 Pulse Rate 110 H 09/28/24 16:35 Respiratory Rate 20 09/28/24 16:35 Blood Pressure 140/86 09/28/24 16:35 Pulse Oximetry 100 09/28/24 16:35 Oxygen Delivery Room Air 09/28/24 16:35 Medical Decision Making MDM Narrative Medical decision making narrative: -Course: 24-year-old presenting after a. X-ray negative for fracture. Radiologist commented on a ossified side on the medial femoral condyle there is no point tenderness in this region. Likely calcification of the ligament. Foot is neurovascularly intact. Patient will be discharged and muscle relaxers. Given primary care ortho follow-up. Given return precautions for severe pain or leg weakness. -DDX includes but is not limited to: Bony injury, internal derangement, muscle strain Vital Signs Vital Signs: Vital Signs Temperature 97.6 F 09/28/24 16:35 Pulse Rate 110 H 09/28/24 16:35 Respiratory Rate 20 09/28/24 16:35 Blood Pressure 140/86 09/28/24 16:35 Pulse Oximetry 100 09/28/24 16:35 Oxygen Delivery Room Air 09/28/24 16:35 Temperature 97.6 F 09/28/24 16:35 Pulse Rate 110 H 09/28/24 16:35 Respiratory Rate 20 09/28/24 16:35 Blood Pressure 140/86 09/28/24 16:35 Pulse Oximetry 100 09/28/24 16:35 Oxygen Delivery Room Air 09/28/24 16:35 Discharge Plan Discharge Clinical Impression: Acute knee pain Patient Disposition: Home Condition: Stable Instructions: Antibiotic Form Additional Instructions: You were seen in the emergency department for knee pain. Please use Motrin, Tylenol, Robaxin as directed. Please follow-up with your primary care physician in 1 week. They may refer you to an orthopedic surgeon if you continue to have significant pain. Patient Language: Tamazight Prescriptions: New ibuprofen 800 mg tablet 800 mg PO TID PRN (Reason: pain) 7 Days Qty: 21 0RF acetaminophen 500 mg tablet 1,000 mg PO TID PRN (Reason: melania) 7 Days Qty: 42 0RF methocarbamol 750 mg tablet 1,500 mg PO TID Qty: 42 0RF No Action diclofenac sodium 50 mg tablet,delayed release (DR/EC) 50 mg PO TID PRN (Reason: pain) Qty: 30 0RF methocarbamol 750 mg tablet 750 mg PO Q6H PRN (Reason: muscle spasm) Qty: 30 0RF lidocaine 5 % adhesive patch,medicated 1 patch topical DAILY Qty: 15 0RF Rx Instructions: leave on most painful area for up to 12 hrs clindamycin HCl 300 mg capsule 300 mg PO Q6H 7 Days Qty: 28 0RF naproxen 375 mg tablet 375 mg PO BID Qty: 14 0RF cefdinir 300 mg capsule 300 mg PO Q12H 7 Days Qty: 14 0RF clonidine HCl 0.2 mg tablet 0.2 mg PO HS dextroamphetamine-amphetamine 20 mg capsule,extended release 24hr 20 mg PO DAILY gabapentin 100 mg capsule 100 mg PO TID aripiprazole 10 mg tablet 10 mg PO DAILY insulin detemir U-100 100 unit/mL (3 mL) insulin pen 10 unit SUBCUT BID insulin aspart U-100 [Novolog U-100 Insulin aspart] 100 unit/mL Solution 10 unit subcut TIDWM 30 Days Qty: 9 0RF ondansetron 4 mg tablet,disintegrating 4 mg PO Q6H PRN (Reason: nausea and vomiting) Qty: 10 0RF hydrocodone-acetaminophen 5-325 mg tablet 1 tablet PO Q6H PRN (Reason: pain) Qty: 7 0RF doxycycline monohydrate 100 mg capsule 100 mg PO BID Qty: 14 0RF cefdinir 300 mg capsule 300 mg PO Q12H 7 Days Qty: 14 0RF ibuprofen 800 mg tablet 800 mg PO TID PRN (Reason: pain) 7 Days Qty: 21 0RF acetaminophen 500 mg tablet 1,000 mg PO TID PRN (Reason: melania) 7 Days Qty: 42 0RF oxycodone 5 mg tablet 5 mg PO Q4H PRN (Reason: pain) Qty: 7 0RF cephalexin 500 mg capsule 500 mg PO Q6H 7 Days Qty: 28 0RF ondansetron 4 mg tablet,disintegrating 4 mg PO Q8H PRN (Reason: nausea and vomiting) Qty: 15 0RF Follow-up/Referrals: Alpesh,DO Gerber [Primary Care Provider] - 1 Week (Knee pain)
[2024-09-28] MEDS: ACETAMINOPHEN 500 MG TABLET 1000 MG PO (20:33)
[2024-09-28] MEDS: KETOROLAC 15 MG/ML VIAL (*BKC) IM (20:33)
== END 2024-09-28 21:28 | disposition home or self-care (01) ==
PROVIDERS: Emergency Provider Emergency Medicine; PCP Student in an Organized Health Care Education/Training Program
DX: S89.92XA Unspecified injury of left lower leg, initial encounter (principal); E11.42 Type 2 diabetes mellitus with diabetic polyneuropathy; F90.9 Attention-deficit hyperactivity disorder, unspecified type; F31.9 Bipolar disorder, unspecified; Z79.899 Other long term (current) drug therapy; Z79.4 Long term (current) use of insulin; W01.0XXA Fall on same level from slipping, tripping and stumbling without subsequent striking against object, initial encounter
CPT/HCPCS: 73564; 96372; 99284; A9270; J1885

== ENCOUNTER 2024-10-06 06:54 | Emergency (ER) | payer OTHER, SELFPAY ==
[2024-10-06 06:56] VITALS: BP 148/78; PULSE 90; RESP 17; TEMP 36.1; O2SAT 100
--- OUTSIDE RECORDS SUMMARY | 2024-10-06 06:56 | XMS_ITS | Encounter Summary ---
Author Organization [facility] Address [address] [place] [address] Care Team Providers Care Commercial Credit Reviewer Name Role Phone Michael Colorado MD Primary Care Provider [phone] Gerber Betts DO Primary Care Provider + Reason for Visit * Reason Onset Date Comments Parent Return Call 04/25/2016 Mom returned your call from last week. 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 Gender Identity Not on file Sexual Orientation Not on file documented as of this encounter Plan of Treatment Upcoming Encounters Date Type Department Care Team ([facility] Contact Info) Description 09/12/2025 2:00 PM CDT Appointment [facility] EVALUATION UNIT [address] [place] [phone] documented as of this encounter Visit Diagnoses Not on filedocumented in this encounter Care Teams Commercial Credit Reviewer Relationship Specialty Start Date End Date Michael Colorado MD [address] [place] [address] 2 [place] [address] PCP - General Pediatrics 04/20/16 07/17/24 Gerber Betts DO [address] [place] [address] PCP - General Family Medicine Geriatric Medicine 07/18/24 documented as of this encounter
--- OUTSIDE RECORDS SUMMARY | 2024-10-06 06:56 | XMS_ITS | Encounter Summary ---
Author Organization [facility] Address [address] [place] [phone] Care Team Providers Care Sales Support Rep Name Role Phone Gerber Betts DO Primary Care Provider + Reason for Visit * Reason Comments Image (SCAN) Encounter Details Date Type Department Care Team (Latest Contact Info) Description 09/28/2024 Scan HEALTH INFO [facility] Scanned, Doc Med Group Image (SCAN) Social History Tobacco Use Types Packs/Day [...] Care Team (Late st Contact Info) Description 10/07/2024 2:00 PM CDT Office Visit [facility] Family & Internal Medicine [address] [phone] Gerber Betts DO [address] [place] [phone] documented as of this encounter Procedures Procedure Name Priority Date/Time Associated Diagnosis Comments IMAGE GENERIC 09/28/2024 documented in this encounter Results * IMAGE GENERIC (09/28/2024) Anatomical Region Laterality Modality Other 09/28/2024 us Doc Med [facility] Scanned SCANNING Final Resu lt documented in this encounter Visit Diagnoses Not on filedocumented in this encounter Care Teams Sales Support Rep Relationship Specialty Start Date End Date Gerber Betts DO [address] [place], [place] [phone] PCP - General FAMILY PRACTICE 06/13/23 documented as of this encounter
--- OUTSIDE RECORDS SUMMARY | 2024-10-06 06:56 | XMS_ITS | Clinical Summary ---
Author Organization [facility] Address [address] [place] [address] Care Team Providers Care Acting Professor Name Role Phone JoshsteveGerber arnold Kg LOGAN Primary Care Provider + Source Comments [facility],non-owned Affiliates and Associated Physician Practices is amultiple site organization consisting of ambulatory clinics and hospital sitesin [place], [place], [place] and [place]. This disclosure is being madepursuant to the Care Everywhere program and may not contain all information available regarding this patient. Last updated 18.[facility] Allergies Active Allergy Reactions Criticality Noted Date [...] 36 mg/g (< 30) Jul 19, 2016 ([place], [place]): first morning voided urine microalbumin/creatinine: 23 ug/g (< 30) Apr 20, 2016 - spot urine microalbumin/creatinine: 36 mg/g (< 30) Jul 19, 2016 ([facility], [place], [place]): first morning voided urine microalbumin/creatinine: 23 ug/g (< 30) Last Assessment & Plan: ? Nonspecific vs early diabetic related microalbuminuria 1. Obtain first morning voided urine specimen for microalbumin/creatinine ratio (laboratory requisition given at the time of the office visit). 2. Expectant observation. 3. Return appointment in three months. Assessment & Plan (06/29/2016 12:53 PM FINANCIAL REPORTING DIRECTOR): ? Nonspecific vs early diabetic related microalbuminuria 1. Obtain first morning voided urine specimen for microalbumin/creatinine ratio (laboratory requisition given at the time of the office visit). 2. Expectant observation. 3. Return appointment in three months. Controlled type 2 diabetes bisi garcia without complication, without long-term current use of insulin 04/21/2016 Overview (06/29/2016): Apr 15, 2016 - [facility], [address] [place] [address] Na 143 mmol/L, K 4.4 mmol/L, Cl [...] months. Assessment & Plan (06/29/2016 12:48 PM FINANCIAL REPORTING DIRECTOR): Good glycemic control. 1. Metformin 1000 mg bid 2. Home glucose monitoring twice daily. 3. Daily physical exercise (60 minutes daily) to promote weight loss 4. Return appointment in three months. Assessment & Plan (04/21/2016 4:13 PM FINANCIAL REPORTING DIRECTOR): New onset, probably type II, diabetes mellitus. [...] mg/dL (< 130) Jul 19, 2016 - [facility] Cholesterol 151 mg/dL (140-199), triglycerides 235 mg/dL (< 150), HDL- cholesterol 37 mg/dL (> 40), LDL-cholesterol 67 (< 130) cholesterol 261 mg/dL (100-170); triglyceride 925 mg/dL (140-199), HDL- cholesterol 41 mg/dL (< 150), LDL-cholesterol mg/dL (< 130) Jul 19, 2016 - [facility] Cholesterol 151 mg/dL (140-199), triglycerides 235 mg/dL [...] sweets/fats Assessment & Plan (06/29/2016 12:45 PM FINANCIAL REPORTING DIRECTOR): 1. Dietary counseling provided 2. Fasting lipid profile (laboratory requisition given at the time of the office visit). .3 Return appointment in three months. Assessment & Plan (04/21/2016 4:13 PM FINANCIAL REPORTING DIRECTOR): ? Familial 1. Fasting lipid profile 2. [...] BURGOS) Assessment & Plan (06/29/2016 12:46 PM FINANCIAL REPORTING DIRECTOR): ? Nonspecific elevation vs evolving BURGOS 1. Repeat serum ALT level (laboratory requisition given at the time of the office visit). 3. Expectant observation. 3. Return appointment in three months. Assessment & Plan (04/21/2016 4:14 PM FINANCIAL REPORTING DIRECTOR): ? BURGOS 1. Repeat serum AST/ALT in one month. 2. Consider referral to Pediatric Gastroenterology Type 2 diabetes mellitus with polyneuropathy Overview (07/16/2024): Apr 15, 2016 - [facility], [address], [place], [place] [address] Na 143 mmol/L, K 4.4 mmol/L, Cl [...] Encounters Date Type Department Care Team Description 09/30/2024 Telephone [facility] [address] [place] [address]. [address] [place] [address] Myesha Farr GC Results 09/17/2024 Telephone [facility] [address] [place] [address] Myesha Farr GC Results (Chromosome Analysis) 09/13/[address] [facility] [address] [place] [address] Alessio Quezada MD Results 09/06/2024 1:35 PM CDT - 09/06/2024 11:59 PM CDT Hospital Encounter [facility] [address] [place] [address] Jered Solis MD Discharge Disposition: Home or Self Care 09/06/2024 Travel 08/16/2024 Telephone [facility] [address] [place] [address] Myesha Farr GC Follow-up 08/06/2024 Telephone [facility] [address] [place] [address] Myesha Farr GC Results 07/29/2024 Telephone [facility] [address] [place] [id number] Karla Zamudio MD Question 07/26/2024 12:11 PM FINANCIAL REPORTING DIRECTOR - 07/26/2024 11:59 PM FINANCIAL REPORTING DIRECTOR Hospital Encounter [facility] [address] [place] [address] Jered Solis MD Discharge Disposition: Home or Self Care 07/26/2024 Travel 07/25/2024 Telephone [facility] [address] [place] [address] Mercedes Tejada Scheduling 07/24/2024 11:30 AM FINANCIAL REPORTING DIRECTOR - 07/24/2024 2:19 PM FINANCIAL REPORTING DIRECTOR Emergency ER at [facility] [address] [place] [id number] Vaginal bleeding Discharge Disposition: Home or Self Care 07/24/2024 Travel 07/24/2024 Telephone [facility] [address] [place] [address] Janice Duarte, CARL Vaginal Bleeding 07/18/2024 12:16 PM FINANCIAL REPORTING DIRECTOR Anesthesia Event [facility] [address] [place] [address] Lamin Llanes MD 07/18/2024 12:05 PM FINANCIAL REPORTING DIRECTOR - 07/18/2024 1:02 PM FINANCIAL REPORTING DIRECTOR Surgery [facility] [address] [place] [address] Karla Zamudio MD SUCTION DILATION AND CURETTAGE 07/18/2024 9:32 AM FINANCIAL REPORTING DIRECTOR - 07/18/2024 3:47 PM FINANCIAL REPORTING DIRECTOR Hospital Encounter [facility] [address] [place] [address] Karla Zamudio MD Surgery General Discharge Disposition: Home or Self Care 07/18/2024 Travel 07/17/2024 Patient Outreach [facility] [address] [place] [address] Yazmin Blackmon RN Care Management (Received a referral for SDOH needs. US report states no cardiac activity and pt has a scheduled D&C tomorrow. Will close this referral. ) 07/16/2024 11:34 AM FINANCIAL REPORTING DIRECTOR - 07/16/2024 11:59 PM FINANCIAL REPORTING DIRECTOR Hospital Encounter [facility] [address] [place] [address] Kimmy Sanderson MD Discharge Disposition: Home or Self Care 07/16/2024 11:33 AM FINANCIAL REPORTING DIRECTOR Hospital Encounter [facility] [address] [place] [address] Kimmy Sanderson MD Discharge Disposition: Home or Self Care 07/16/2024 11:32 AM FINANCIAL REPORTING DIRECTOR Hospital Encounter [facility] [address] [place] [address] Alphonse Quispe MD Discharge Disposition: Home or Self Care 07/16/2024 11:31 AM FINANCIAL REPORTING DIRECTOR Hospital Encounter [facility] [address] [place] [address] Alphonse Quispe MD Discharge Disposition: Home or Self Care 07/16/2024 Travel 07/11/2024 Telephone [facility] [address] [place] [address] Radha Romero, boardinghouse keeper from Last 3 Months Immunizations Immunization Administration [...] medical care, and heating? Somewhat hard 07/16/2024 [facility] - Occupational Stress [...] things needed for daily living? No 07/16/2024 [place] Depression Scale Answer Date Recorded [place] Depression Scale Total 11 07/16/2024 The thought [...] any time in the past 12 m [facility], were you homeless or living in a long term (including now)? No 07/16/2024 Estimated Date of Delivery Comme nts Yes 01/26/2025 Based on last me nstrual period of 04/21/2024 Sex and Gender Information Value Date Recorded Sex Assigned at Not on file Legal Sex Female 6:36 AM FINANCIAL REPORTING DIRECTOR Gender Identity Not on file Sexual Orientation Not on file Last Filed Vital Signs Vital Sign Reading Time Taken Comments Blood Pressure 131/74 09/06/2024 1:42 PM CDT Pulse 98 09/06/2024 1:42 PM CDT Temperature 36.7 C (98 F) 07/24/2024 10:06 AM FINANCIAL REPORTING DIRECTOR Respiratory Rate 17 07/24/2024 10:06 AM FINANCIAL REPORTING DIRECTOR Oxygen Saturation 99% 07/24/2024 10:06 AM FINANCIAL REPORTING DIRECTOR Inhaled Oxygen Concentration - - Weight 87 kg (191 lb 12.8 oz) 09/06/2024 1:42 PM CDT Height 162.6 cm (5' 4 ) 07/18/2024 10:04 AM FINANCIAL REPORTING DIRECTOR Body Mass Index 32.92 07/18/2024 10:04 AM FINANCIAL REPORTING DIRECTOR Plan of Treatment Upcoming Encounters Date Type Department Care Team (Late st Contact Info) Description 09/12/2025 2:00 PM CDT Appointment [facility] [address] [place] [address] [address] [place] [address] Health Maintenance Due Date Last Done Comments [...] current HEMOGLOBIN A1C Routine 07/26/2024 1:10 PM FINANCIAL REPORTING DIRECTOR Controlled type 2 diabetes mellitus without complication, without long-term current use of insulin US PELVIS W TRANSVAG W DOP NON OB STAT 07/24/2024 12:42 PM FINANCIAL REPORTING DIRECTOR Vaginal bleeding TYPE + SCREEN PANEL STAT 07/24/2024 1 0:39 AM FINANCIAL REPORTING DIRECTOR HCG BETA BLOOD QUANTITATIVE STAT 07/24/2024 10:39 AM FINANCIAL REPORTING DIRECTOR COMPREHENSIVE METABOLIC PANEL STAT 07/24/2024 10:39 AM FINANCIAL REPORTING DIRECTOR CBC W AUTO DIFFERENTIAL STAT 07/24/2024 10:39 AM FINANCIAL REPORTING DIRECTOR CARDIAC RHYTHM STRIP ORDER 07/22/2024 10:40 PM FINANCIAL REPORTING DIRECTOR GLUCOSE - POINT OF CARE Routine 07/18/2024 1:06 PM FINANCIAL REPORTING DIRECTOR PATHOLOGY TISSUE EXAM (STL) Routine 07/18/2024 12:37 PM FINANCIAL REPORTING DIRECTOR Diagnosis unknown LARYNGEAL MASK AIRWAY Routine 07/18/2024 12:23 PM FINANCIAL REPORTING DIRECTOR HI SURG RX MISSED MISCARRIAGE,1ST TRI 07/18/2024 11:49 AM FINANCIAL REPORTING DIRECTOR Diagnosis unknown BLOOD TYPE VERIFICATION Routine 07/18/2024 10:25 AM FINANCIAL REPORTING DIRECTOR Pre-op testing TYPE + SCREEN PANEL BERONICA 07/18/2024 1 0:19 AM FINANCIAL REPORTING DIRECTOR Pre-op testing GLUCOSE - POINT OF CARE Routine 07/18/2024 10:18 AM FINANCIAL REPORTING DIRECTOR BETA-2 GLYCOPROTEIN 1 ANTIBODY IGG/IGM PANEL Routine 07/16/2024 3:37 PM FINANCIAL REPORTING DIRECTOR Recurrent loss without current CARDIOLIPIN ANTIBODY IGG/IGM PANEL Routine 07/16/2024 3:37 PM FINANCIAL REPORTING DIRECTOR Recurrent loss without current LUPUS ANTICOAGULANT PANEL Routine 07/16/2024 3:37 PM FINANCIAL REPORTING DIRECTOR Recurrent loss without current TSH REFLEX FREE T4 Routine 07/16/2024 3: 37 PM FINANCIAL REPORTING DIRECTOR Recurrent loss without current SONOGRAM - COMPLETE Routine 07/16/2024 1 :23 PM FINANCIAL REPORTING DIRECTOR MICROALB/CREAT RATIO URINE RANDOM PANEL Routine 02/02/2017 2:38 PM CDT Controlled type 2 diabetes mellitus without complication, without long-term current use of insulin from Last 3 Months or Most Recently Relevant to Health Maintenance Results * PAP IG LB RFLX HPV APTIMA ASCU (09/06/2024 2:14 PM CDT) Diagnosis Comment 09/11/2024 11:10 AM CDT [facility] ([facility]) Comment: NEGATIVE FOR INTRAEPITHELIAL LESION OR MALIGNANCY. THIS SPECIMEN WAS RESCREENED PART OF OUR TEACHER ADVISOR PROGRAM. Specimen Adequacy Comment 025 11:10 AM CDT [facility] ([facility]) Comment: Satisfactory for evaluation. Endocervical and/or squamous metaplastic cells (endocervical component) are present. Performed by Comment 09/11/2024 11:10 AM CDT [facility] ([facility]) Comment:Riley Cancino, Cytot echnologist ([facility]) QC Reviewed by Comment 09/11/2024 11:10 AM CDT [facility] ([facility]) Comment:Luz Maria guajardo, Lead Producer ([facility]) Comment . 09/11/2024 11:10 AM CDT [facility] ([facility]) Note Comment 09/11/2024 11:10 AM CDT [facility] ([facility]) Comment: The Pap smear is a screening test designed to aid in the detection of premalignant and malignant conditions of the uterine cervix. It is not a diagnostic procedure and should not be used as the sole means of detecting cervical cancer. Both false-positive and false-negative reports do occur. IGLBP CPT Code Automation Comment 09/11/2024 11:10 AM CDT [facility] ([facility]) Comment: This liquid based ThinPrep(R) pap test was screened with the use of an image guided system. Note Comment 09/11/2024 11:10 AM CDT [facility] ([facility]) Comment: The HPV DNA reflex criteria were not met with this specimen result therefore, no HPV testing was performed. Pathology/Cytolo gy ENTIRE ENDOCERVIX / Unknown Collection / Unknown 09/06/2024 2:14 PM CDT 09/06/2024 2:48 PM CDT [facility] - 09/11/2024 11:10 AM CDT Performed at: 01 - [address] [id number] Medical I D Sales: Rebeka Vargas MD, Phone: [phone] Specimen Comment: No. of containers..01 ThinPrep Vial us Jered Solis MD LAB - PATHOLOGY/CYTOLOGY ORDER ELIOT Final Result [facility] ([facility]) [address] [place] [address] * CYTOGENOMIC SNP MICROARRAY (09/06/2024 2:00 PM CDT) Pathologist [facility] Cytogenomic SNP Microarray Normal Normal 09/18/2024 9:14 AM CDT [facility] ([facility]) Comment: Test Performed: Cytogenomic SNP Microarray (LEATHER BELT MAKER SNP) Specimen Type: Peripheral blood Indication for Testing: Recurrent loss --- RESULT SUMMARY Normal Microarray Result (Female) --- RESULT DESCRIPTION No clinically significant copy number changes or regions of homozygosity were detected. INTERPRETATION This analysis showed a normal result. Health care providers with questions may contact an [facility] genetic counselor at ext. [phone]. Cytogenomic Nomenclature (ISCN): arr (X,1-22)x2 Technical Information - This assay was performed using the [employer] HD Suite ([employer]) according to validated protocols within the Genomic Microarray Laboratory at [facility] - This assay is designed to detect alterations to DNA copy number state (gains and losses) as well as copy-neutral alterations (regions of homozygosity; ELIAS) that indicate an absence- or aywx-[id number]-[id number] (AOH or SELAM) - AOH may be present due to parental relatedness (consanguinity) or uniparental disomy (UPD) - SELAM may be present due to acquired UPD (segmental or whole chromosome) - The detection sensitivity (resolution) for any particular genomic region may vary dependent upon the number of probes (markers), probe spacing, and thresholds for copy number and ELIAS determination - The [employer] HD array contains 2.67 million markers across [...] performed in accordance with recommendations by the [employer] (ACMG), [...] used in CNV classification, please refer to [facility] Constitutional CNV Assertion Criteria, which can be found on [facility]'s Genetics website at [email or web address] - CNVs classified as likely benign or [...] to improve understanding of specific genetic variants, [facility] submits HIPAA-compliant, de-identified (cannot be traced back to the patient) genetic test results and health information to public databases. The confidentiality of each sample is maintained. If you prefer that your test result not be shared, call [facility] at ext. [phone]. Your de-identified information will not be disclosed to public databases after your request is received, but a separate request is required for each genetic test. Additionally, patients have the opportunity to participate in patient registries and research. To learn more, visit [facility]'s Genetics website at [email or web address]. This result has been reviewed and approved by Janis Garrison, PhD, [facility] A portion of this analysis was performed at the following location(s): [facility] Site CG-[place]#2 INTERPRETIVE INFORMATION: CYTOGENOMIC SNP MICROARRAY This test was developed and its performance characteristics determined by [facility]. It has not been cleared or approved by the US Food and Drug Administration. This test was performed in a CLIA certified laboratory and is intended for clinical purposes. Counseling and informed consent are recommended for genetic testing. Consent forms are available online. Performed By: [employer] [facility] [employer] [address] [id number] Outsole Cementer Machine: Zak Garcia MD, PhD CLIA Number: [id number] Blood BLOOD SPECIMEN / Unknown Lab Venipuncture / Unknown 09/06/2024 2:00 PM CDT 09/06/2024 2:42 PM CDT us Jered Solis MD LAB - CHEMISTRY ORDERABLES Fin al Result [email or web address]) [address] [place] [address], [facility] * CHROMOSOME ANALYSIS BLOOD PANEL (09/06/2024 2:00 PM CDT) [facility] Chromosome Analysis Peripheral Blood See Note Normal 09/17/2024 11:46 AM CDT [facility] ([facility]) Comment: Test Performed: Chromosome Analysis Specimen Type: [...] care providers with questions may contact an [facility] genetic counselor at ext. [phone]. NOTE: Genomic microarray analysis will be reported separately under [facility] accession [id number]. This result has been reviewed and approved by Saqib Cervantes, PhD, [facility] A portion of this analysis was performed at the following location(s): [facility] Site CG-[place]#1 [facility]1 [facility] INTERPRETIVE INFORMATION: Chromosome Analysis Constitutional Blood This test was developed and its performance characteristics determined by [facility]. It has not been cleared or approved by the US Food and Drug Administration. This test was performed in a CLIA certified laboratory and is intended for clinical purposes. Counseling and informed consent are recommended for genetic testing. Consent forms are available online. [facility] Chromosome Analysis Peripheral See Note 09/17/2024 11:46 AM CDT [facility] [email or web address] ([facility]) Comment: Authorized individuals can access the [facility] Enhanced Report with an [facility] Connect account using the following link. Your local lab can assist you in obtaining the patient report if you don't have a Connect account. [email or web address] Performed By: [facility] [employer] [address] [id number] Outsole Cementer Machine: Zak Garcia MD, PhD CLIA Number: [id number] Blood BLOOD SPECIMEN / Unknown Lab Venipuncture / Unknown 09/06/2024 2:00 PM CDT 09/06/2024 2:42 PM CDT us Jered Solis MD LAB - PATHOLOGY/CYTOLOGY ORDER ELIOT Final Result [facility] ([facility]) [address] [place] [address], [facility] * (ABNORMAL) HEMOGLOBIN A1C (07/26/2024 1:10 PM FINANCIAL REPORTING DIRECTOR) Hemoglobin A1c 8.2(H) <5.7 % 07/26/2024 3:17 PM FINANCIAL REPORTING DIRECTOR [facility] Estimated Average Glucose 189 mg/dL 07/26/2024 3:17 PM FINANCIAL REPORTING DIRECTOR [facility] Blood BLOOD SPECIMEN / Unknown Venipuncture / Unknown 07/26/2024 1:10 PM FINANCIAL REPORTING DIRECTOR 07/26/2024 3:01 PM FINANCIAL REPORTING DIRECTOR Narrative [facility] - 07/26/2024 3:17 PM FINANCIAL REPORTING DIRECTOR HbA1c Interpretation: Normal: < 5.7% Pre-diabetes: 5.7-6.4% [...] ORDERABLES Fin al Result Performing Organization Address City/State/[facility] Co de Phone Number [facility] [address] [place], [place] [id number] * US Pelvis W Transvag W Dop Non Ob (07/24/2024 12:42 PM FINANCIAL REPORTING DIRECTOR) Anatomical Region Laterality Modality Pelvis Ultrasound 07/24/2024 12:5 0 PM FINANCIAL REPORTING DIRECTOR Narrative 07/24/2024 12:52 PM FINANCIAL REPORTING DIRECTOR PROCEDURE: US PELVIS W TRANSVAG W DOP NON OB, DATE/TIME OF EXAM: 07/24/2024 12:47 PM, LOCATION [facility] INDICATION: N93.9: Abnormal uterine and vaginal [...] DATE/TIME OF EXAM: 07/24/2024 12:47 PM, LOCATION [facility] INDICATION: N93.9: Abnormal uterine and vaginal [...] David Phillips MD on 07/24/2024 12:52 PM us Daniella Carmen PA-C US ORDERABLES Final Result * TYPE + SCREEN PANEL (07/24/2024 10:39 AM FINANCIAL REPORTING DIRECTOR) Only the most recent of2 resultswithin the time period is included. ABO Rh O POS 07/24/2024 11:[address] [facility] Comment:History checked. Antibody Screen NEG 11:30 AM FINANCIAL REPORTING DIRECTOR [facility] Blood Bank BLOOD SPECIMEN / Unknown Venipuncture / Unknown 07/24/2024 10:39 AM FINANCIAL REPORTING DIRECTOR 07/24/2024 10:48 AM FINANCIAL REPORTING DIRECTOR Andrea Rawls APNP-CELLARS SUPERVISOR LAB - BLOOD BANK ORDER ELIOT Final Result [facility] [address] [phone] * (ABNORMAL) CBC W AUTO DIFFERENTIAL (07/24/2024 10:39 AM FINANCIAL REPORTING DIRECTOR) WBC 11.4(H) 4.0 - 10.7 x10E9/L 07/24/2024 10:[address] [facility] RBC Count 3.84(L) 3.90 - 5.20 x10E12/L 07/24/2024 10:[address] [facility] Hemoglobin 10.5(L) 11.9 - 15.8 g/dL 07/24/2024 10:[address] [facility] Hematocrit 31.6(L) 34.8 - 46.1 % 07/24/2024 10:[address] [facility] MCV 82.3 80.0 - 98.0 fL 07/24/2024 10:[address] [facility] MCH 27.3 26.7 - 33.6 pg 07/24/2024 10:[address] [facility] MCHC 33.2 31.7 - 36.3 g/dL 07/24/2024 10:[address] [facility] RDW-CV 13.4 11.3 - 14.8 % 07/24/2024 10:[address] [facility] Platelet Count 332 150 - 420 x10E9/L 07/24/2024 10:[address] [facility] MPV 11.2 7.8 - 11.4 fL 07/24/2024 10:[address] [facility] Neutrophil % 76.0(H) 41.0 - 74.0 % 07/24/2024 10:[address] [facility] Lymphocyte % 15.9(L) 17.0 - 47.0 % 07/24/2024 10:[address] [facility] Monocyte % 5.1 3.0 - 11.0 % 07/24/2024 10:[address] [facility] Eosinophil % 1.8 0.0 - 7.0 % 07/24/2024 10:[address] [facility] Basophil % 0.4 0.0 - 1.6 % 07/24/2024 10:[address] [facility] Immature Granulocytes % 0.8 0.0 - 1.0 % 07/24/2024 10:[address] [facility] Neutrophil Absolute 8.68(H) 1.60 - 7.50 x10E9/L 07/24/2024 10:[address] [facility] Lymphocyte Absolute 1.81 1.00 - 4.40 x10E9/L 07/24/2024 10:[address] [facility] Monocyte Absolute 0.58 0.15 - 1.00 x10E9/L 07/24/2024 10:[address] [facility] Eosinophil Absolute 0.21 0.00 - 0.60 x10E9/L 07/24/2024 10:[address] [facility] Basophil Absolute 0.04 0.00 - 0.13 x10E9/L 07/24/2024 10:[address] [facility] Blood BLOOD SPECIMEN / Unknown Venipuncture / Unknown 07/24/2024 10:39 AM [facility] 07/24/2024 10:48 AM [facility] LAB - HEMATOLOGY ORDER ELIOT Final Result [facility] [address] [place] [address] * (ABNORMAL) COMPREHENSIVE METABOLIC PANEL (07/24/2024 10:39 AM [facility]) [facility] Signature Glucose 275(H) 70 - 99 mg/dL 07/24/2024 11:[address] [facility] Sodium 136 136 - 145 mmol/L 07/24/2024 11:[address] [facility] Potassium 4.4 3.5 - 5.1 mmol/L 07/24/2024 11:[address] [facility] Chloride 106 98 - 107 mmol/L 07/24/2024 11:[address] [facility] CO2 21(L) 22 - 29 mmol/L 07/24/2024 11:[address] [facility] Calcium 8.8 8.4 - 10.4 mg/dL 07/24/2024 11:[address] [facility] Anion Gap 9 6 - 16 mmol/L 07/24/2024 11:[address] [facility] BUN 14 5.3 - 18.7 mg/dL 07/24/2024 11:[address] [facility] Creatinine 0.67 0.57 - 1.11 mg/dL 07/24/2024 11:[address] [facility] Alkaline Phosphatase 55 40 - 150 U/L 07/24/2024 11:[address] [facility] ALT 18 0 - 55 U/L 07/24/2024 11:[address] [facility] AST 21 5 - 34 U/L 07/24/2024 11:[address] [facility] Protein Total 7.1 6.4 - 8.3 gm/dL 07/24/2024 11:[address] [facility] Albumin 3.3(L) 3.4 - 5.0 gm/dL 07/24/2024 11:[address] [facility] Bilirubin Total 0.3 0.2 - 1.2 mg/dL 07/24/2024 11:[address] [facility] eGFR by CKD-EPI >90 >=90 mL/min/1.7 3 m2 07/24/2024 11:[address] [facility] Blood BLOOD SPECIMEN / Unknown Venipuncture / Unknown 07/24/2024 10:39 AM FINANCIAL REPORTING DIRECTOR 07/24/2024 10:48 AM [facility] Andrea Rawls APNP-CELLARS SUPERVISOR LAB - CHEMISTRY ORDERA BLES Final Result Performing Organization Address City/State/[facility] Co de Phone Number [facility] [address] [place], [place] [id number] * HCG BETA BLOOD QUANTITATIVE (07/24/2024 10:39 AM FINANCIAL REPORTING DIRECTOR) [facility] hCG Quantitative 365.89 mIU/mL 07/24/19 11:[address] [facility] Blood BLOOD SPECIMEN / Unknown Venipuncture / Unknown 07/24/2024 10:39 AM FINANCIAL REPORTING DIRECTOR 07/24/2024 10:48 AM FINANCIAL REPORTING DIRECTOR Narrative [facility] - 07/24/2024 11:47 AM FINANCIAL REPORTING DIRECTOR hCG Reference Range, mIU/mL: Non Females 0-6.0 [...] serum FSH >20 IU/L makes unlikely. Andrea GONZALEZ LAB - CHEMISTRY ORDERA BLES Final Result Performing Organization Address [facility]/ZIP Co de Phone Number [facility] [address] [place] [phone] * CARDIAC RHYTHM STRIP ORDER (07/22/2024 10:40 PM FINANCIAL REPORTING DIRECTOR) Narrative 07/22/2024 10:40 PM FINANCIAL REPORTING DIRECTOR Ordered by an unspecified provider. Scanned Document CARDIAC SERVICES ORDERABLES Fin al Result * (ABNORMAL) GLUCOSE - POINT OF CARE (07/18/2024 1:06 PM FINANCIAL REPORTING DIRECTOR) Only the most recent of2 resultswithin the time period is included. Glucose WB/POC 133(H) 70 - 99 mg/dL 07/20/2024 1:56 AM FINANCIAL REPORTING DIRECTOR [facility] Specimen Type Cap Fingerstick 2024 1:56 AM FINANCIAL REPORTING DIRECTOR [facility] Blood BLOOD SPECIMEN / Unknown 07/18/2024 1:06 PM FINANCIAL REPORTING DIRECTOR 07/20/2024 1:56 AM FINANCIAL REPORTING DIRECTOR Karla Zamudio MD LAB - POINT OF CARE ORDERABLES F inal Result Performing Organization Address [facility]/ZIP Co de Phone Number [facility] [address] [place] [phone] * PATHOLOGY TISSUE EXAM (STL) (07/18/2024 12:37 PM FINANCIAL REPORTING DIRECTOR) Case Report Surgical Pathology Report Case: [id number] Authorizing Provider: Karla Zamudio MD Collected: 07/18/2024 12:37 PM Ordering Location: [facility] Received: 07/18/2024 01:15 PM Pathologist: Kirt Billings MD Specimen: Products of Conception 07/19/2024 9:[address] [facility] Final Diagnosis Uterine contents, dilation and curettage: Products of conception. 07/19/2024 9:[address] [facility] Clinical History Missed 07/19/2024 9:[address] [facility] Gross Description The specimen is identified with the patient's name and date of . Received in formalin, labeled specimen A, products of conception are multiple fragments of soft pink brasher tissue admixed with blood clot measuring 5 x 5 x 5 cm in aggregate. parts are not identified. Calciminer sections submitted in cassette [id number]. JULIO CESAR/DAVID 07/19/2024 9:[address] [facility] Microscopic Description Sections show immature chorionic villi and decidua. 07/19/2024 9:[address] [facility] Pathologist Location at [facility] 07/19/2024 9:[address] [facility] Disclaimer All histochemical and/or immunohistochemical [...] interpreted with caution. 07/19/2024 9:[address] [facility] Embedded Images 07/19/2024 9:[address] [facility] Pathology/Cytolo gy PRODUCTS OF CONCEPTION TISSUE SPECIMEN / Unknown 07/18/2024 12:37 PM FINANCIAL REPORTING DIRECTOR 07/18/2024 1:15 PM FINANCIAL REPORTING DIRECTOR Comment:Pre-op diagnosis: Diagnosis unknown [R69] Result [facility] Karla Zamudio MD LAB - PATHOLOGY/CYTOLOGY ORDERAB LES Final Result Performing Organization Address [facility] Co de Phone Number [facility] [address] [place] [address] * LARYNGEAL MASK AIRWAY (07/18/2024 12:23 PM FINANCIAL REPORTING DIRECTOR) Narrative Alessio Fuentes APRN-CRNA - 07/18/2024 12:23 PM FINANCIAL REPORTING DIRECTOR Alessio Fuentes APRN-CRNA 07/18/2024 12:23 PM LMA [...] Provider #1: Khoi Ortega, Performed the procedure. Result [facility] Lamin Llanes MD GENERAL ANESTHESIA ORDERABL ES Final Result * BLOOD TYPE VERIFICATION (07/18/2024 10:25 AM FINANCIAL REPORTING DIRECTOR) ABO Rh O POS 07/18/2024 10:55 AM FINANCIAL REPORTING DIRECTOR [facility] Blood Bank BLOOD SPECIMEN / Unknown Venipuncture / Unknown 07/18/2024 10:25 AM FINANCIAL REPORTING DIRECTOR 07/18/2024 10:26 AM FINANCIAL REPORTING DIRECTOR Result [facility] Artemio Casanova MD LAB - BLOOD BANK ORDERABLES Deidra l Result Performing Organization Address [facility] Co de Phone Number [facility] [address] [place] [address] * TSH REFLEX FREE T4 (07/16/2024 3:37 PM FINANCIAL REPORTING DIRECTOR) TSH 0.466 0.350 - 4.940 uIU/mL 07/16/2024 4:32 PM FINANCIAL REPORTING DIRECTOR [facility] Blood BLOOD SPECIMEN / Unknown Venipuncture / Unknown 07/16/2024 3:37 PM FINANCIAL REPORTING DIRECTOR 07/16/2024 3:51 PM FINANCIAL REPORTING DIRECTOR Gerber Bah MD LAB - CHEMISTRY ORDERAB LES Final Result [facility] [address] [place] [phone] * LUPUS ANTICOAGULANT PANEL (07/16/2024 3:37 PM FINANCIAL REPORTING DIRECTOR) Pathologist [facility] APTT 27.4 23.0 - 38.4 Seconds 07/19/2024 [...] Unknown Venipuncture / Unknown 07/16/2024 3:37 PM FINANCIAL REPORTING DIRECTOR 07/16/2024 3:51 PM FINANCIAL REPORTING DIRECTOR Gerber Bah MD LAB - HEMATOLOGY ORDERA BLES Final Result [place] [id number], [facility] [phone] * CARDIOLIPIN ANTIBODY IGG/IGM PANEL (07/16/2024 3:37 PM FINANCIAL REPORTING DIRECTOR) Cardiolipin Antibody IgG <9 0 - 14 GPL U/mL 07/18/2024 3:07 PM FINANCIAL REPORTING DIRECTOR [facility] ([facility]) Comment: Negative: <15 Indeterminate: 15 - 20 Low-Med Positive: >20 - 80 High Positive: >80 Cardiolipin Antibody IgM <9 0 - 12 MPL U/mL 07/18/2024 3:07 PM FINANCIAL REPORTING DIRECTOR [facility] ([facility]) Comment: Negative: <13 Indeterminate: 13 - 20 Low-Med Positive: >20 - 80 High Positive: >80 Blood BLOOD SPECIMEN / Unknown Venipuncture / Unknown 07/16/2024 3:37 PM FINANCIAL REPORTING DIRECTOR 07/16/2024 3:51 PM FINANCIAL REPORTING DIRECTOR Narrative [facility] ([facility]) - 07/18/2024 3:07 PM FINANCIAL REPORTING DIRECTOR Performed at: 01 - [address] [id number] Medical I D Sales: Ad Harris PhD, Phone: [phone] Gerber Bah MD LAB - SEROLOGY ORDERABL ES Final Result Performing Organization Address City/[facility]/ZIP Co de Phone Number [facility] ([facility]) [address] [place] [address] * BETA-2 GLYCOPROTEIN 1 ANTIBODY IGG/IGM PANEL (07/16/2024 3:37 PM FINANCIAL REPORTING DIRECTOR) Beta-2 Glycoprotein I Antibody IgG <9 0 - 20 GPI IgG units 07/18/2024 2:08 PM FINANCIAL REPORTING DIRECTOR [facility] ([facility]) Comment: The reference interval reflects a 3SD or 99th percentile interval, which is thought to represent a potentially clinically significant result in accordance with the International Consensus Statement on the classification criteria for definitive antiphospholipid syndrome (APS). J Thromb Haem 2006;4:295-306. Beta-2 Glycoprotein I Antibody IgM <9 0 - 32 GPI IgM units 07/18/2024 2:08 PM FINANCIAL REPORTING DIRECTOR [facility] ([facility]) Comment: The reference interval reflects a 3SD or 99th percentile interval, which is thought to represent a potentially clinically significant result in accordance with the International Consensus Statement on the classification criteria for definitive antiphospholipid syndrome (APS). J Thromb Haem 2006;4:295-306. Blood BLOOD SPECIMEN / Unknown Venipuncture / Unknown 07/16/2024 3:37 PM FINANCIAL REPORTING DIRECTOR 07/16/2024 3:51 PM FINANCIAL REPORTING DIRECTOR Narrative [facility] ([facility]) - 07/18/2024 2:08 PM FINANCIAL REPORTING DIRECTOR Performed at: 01 - [address] [id number] Medical I D Sales: Ad Harris PhD, Phone: [phone] Gerber Bah MD LAB - CHEMISTRY ORDERAB LES Final Result Performing Organization Address City/State/[facility] Co de Phone Number [facility] [address] [place] [address] * SONOGRAM - COMPLETE (07/16/2024 1:23 PM FINANCIAL REPORTING DIRECTOR) Linked Results Indication ======== Dating/NT Abnormal NIPT [...] discuss plan of care. Coding ====== Procedures 67307: 1st Trimester Verte[employer] ([employer] [employer]) PACS Anatomical Region Laterality Modality Other 07/16/2024 1:23 PM FINANCIAL REPORTING DIRECTOR us Augusta Leggett MD [facility] ORDERABLES Edited R esult - Final * (ABNORMAL) MICROALB/CREAT RATIO URINE RANDOM PANEL (02/02/2017 2:38 PM CDT) Creatinine Urine 103.98 mg/dL 02/03/20 17 4:18 PM CDT [facility] Microalbumin Urine 3.3(H) <1.7 mg/dL 02/02/2017 4:18 PM CDT [facility] Microalbumin/Crea tinine Ratio 32(H) <30 mg/g 02/02/2017 4:18 PM CDT [facility] Urine URINE SPECIMEN OBTAINED BY CLEAN CATCH PROCEDURE / Unknown Collection / Unknown 02/02/2017 2:38 PM CDT 02/02/2017 3:10 PM CDT us Deon Monteiro MD LAB - URINE CHEMISTRY ORDERABLES Final Result [facility] [address] [place] [address] from Last 3 Months or Most Recently Relevant to Health Maintenance Insurance Care Teams Acting Professor Relationship Specialty Start Date End Date Gerber Betts DO [address] [place] [phone] PCP - General Family Medicine Geriatric Medicine 07/18/24
--- OUTSIDE RECORDS SUMMARY | 2024-10-06 06:56 | XMS_ITS | Clinical Summary ---
Author Organization [facility] Address [address] [place] [address] Care Team Providers Care Maintenance Mechanic Technician Name Role Phone Gerber Betts Kg [...] tabletIndications: Type 2 diabetes mellitus with polyneuropathy ([facility]) Take 1 tablet daily for 2 weeks, then take 2 tablets daily there after 60 tablet 2 4 Active Active Problems Problem Noted Date Diagnosed Date Hidradenitis suppurativa 06/13/2023 Bipolar 1 disorder, depressed ([facility]) 06/13/2020 Urine test positive for microalbuminuria 017 Overview (06/13/2023): Apr 20, 2016 - spot urine microalbumin/creatinine: 36 mg/g (< 30) Jul 19, 2016 ([place], [place]): first morning voided urine microalbumin/creatinine: 23 [...] 04/21/2016 Overview (06/13/2023): Apr 15, 2016 - [facility], [address] [place], [place] [address] Na 143 mmol/L, K 4.4 mmol/L, Cl [...] mg/dL (< 130) Jul 19, 2016 - [facility] Cholesterol 151 mg/dL (140-199), triglycerides [...] associat ed with type 2 diabetes mellitus ([facility]/HCC) 2016 Encounters Date Type Department Care Team Description 09/28/2024 Scan [facility] Scanned, Doc Med Group Image (SCAN) 09/17/2024 Scan [facility] Scanned, [...] Comments Blood Pressure 104/66 06/13/2023 8:52 AM DATA STEWARD Pulse 66 06/13/2023 8:52 AM DATA STEWARD Temperature 36.3 C (97.4 F) 06/13/2023 8:52 AM DATA STEWARD Respiratory Rate 16 06/13/2023 8:52 AM DATA STEWARD Oxygen Saturation 97% 06/13/2023 8:52 AM DATA STEWARD Inhaled Oxygen Concentration - - Weight 87.3 kg (192 lb 6.4 oz) 06/13/2023 8:52 A M DATA STEWARD Height 162.6 cm (5' 4 ) 06/13/2023 8:52 AM DATA STEWARD Body Mass Index 33.03 06/13/2023 8:52 AM DATA STEWARD Plan of Treatment Upcoming Encounters Date Type Department Care Team (Late st Contact Info) Description 10/07/2024 2:00 PM CDT Office Visit [facility] Family & Internal Medicine - [address] [phone] Gerber Betts DO [address] [place] [phone] Health Maintenance Due Date Last Done Comments [...] A1C 09/12/2023 06/13/2023 COVID-19 Vaccine ( - ) 02/04/2024 PHQ-2 (Physician [place]) 06/05/2024 06/13/2023 Diabetes: Retinopathy Eye Exam 08/27/2025 [...] Date/Time Associated Diagnosis Comments IMAGE GENERIC 09/28/2024 CT GENERIC 09/17/2024 OUTSIDE LAB (SCAN ORDER) [...] Recently Relevant to Health Maintenance Results * IMAGE GENERIC (09/28/2024) Anatomical Region Laterality Modality Other 09/28/2024 Result [facility] Scanned SCANNING Final Resu lt * CT GENERIC (09/17/2024) Anatomical Region Laterality Modality Other 09/17/2024 Result [facility] Scanned SCANNING Final Resu lt * OUTSIDE LAB (SCAN ORDER) (09/17/2024) Only the most recent of11 resultswithin the time period is included. 09/17/2024 Result [facility] Scanned SCANNING Final Resu lt * ULTRASOUND GENERIC (SCAN ORDER) (09/17/2024) Anatomical Region Laterality Modality Other 09/17/2024 [facility] Scanned SCANNING Final Resu lt * OUTSIDE LAB COVID-19 (08/20/2024) CORONAVIRUS SARS COV 2 PCR (RESP) NOT DETECTED NOT DETECTED [facility] 08/20/2024 [facility] Scanned SCANNING Final Resu lt [facility] * OUTSIDE PT/INR (SCAN ORDER) (07/22/2024) 07/22/2024 us [facility] Scanned SCANNING Final Resu lt * DIABETIC RETINOPATHY EXAM (NEGATIVE) (08/28/2023) us [facility] Scanned SCANNING Final Resu lt [facility] * HEMOGLOBIN, GLYCOSYLATED (06/13/2023) HGB A1C 10.5 % [facility] 06/13/2023 us Gerber Betts DO LABORATORY Final Re sult Performing Organization Address City/[facility]/ZIP Co de Phone Number [facility] [address] [place] [address], from Last 3 Months or Most Recently Relevant to Health Maintenance Insurance Care Teams Maintenance Mechanic Technician Relationship Specialty Start Date End Date Gerber Betts DO [address] [place] [phone] PCP - General FAMILY PRACTICE 06/13/23
--- NOTE | 2024-10-06 07:18 | ED.GENADULT ---
HPI - General Adult General Chief complaint: Unspecified Stated complaint: test Time Seen by Provider: 10/06/24 07:14 Source: patient Mode of arrival: ambulatory Limitations: no limitations History of Present Illness HPI narrative: 24 YEARS OLD WHITE FEMALE CAME TO THE ED BY PRIVATE CAR REPORTING POSSIBLE AND WOULD LIKE TO GET THE SERUM TEST. PATIENT IS TELLING ME THAT SHE HAVE HISTORY OF IN THE PAST AND URINE USUALLY COMES NEGATIVE SHE HAVE TO CONFIRM THAT WITH BLOOD. PATIENT BELIEVES THAT SHE HAVE OLD SYMPTOM OF . Related Data Home Medications ?Medication ?Instructions ?Recorded ?Confirmed ?Last Taken ?Type aripiprazole 10 mg tablet 10 mg PO DAILY 03/05/23 03/05/23 1 Day Ago History ~03/04/23 clonidine HCl 0.2 mg tablet 0.2 mg PO HS 03/05/23 03/05/23 1 Day Ago History ~03/04/23 dextroamphetamine-amphetamine ER 20 mg PO DAILY 03/05/23 03/05/23 1 Day Ago History 20 mg 24hr capsule,extend release ~03/04/23 gabapentin 100 mg capsule 100 mg PO TID 03/05/23 03/05/23 1 Day Ago History ~03/04/23 insulin detemir U-100 100 unit/mL 10 unit subcut BID 03/05/23 03/06/23 1 Day Ago History (3 mL) subcutaneous pen ~03/04/23 Allergies Allergy/AdvReac Type Severity Reaction Status Date / Time morphine Allergy Hives Verified 10/06/24 06:55 Review of Systems Review of Systems: All systems reviewed & are unremarkable except as noted in HPI and below PMFSH Past Medical History Medical History Chlamydia Treated (approx 2020) Hidradenitis suppurativa of left axilla ADHD (attention deficit hyperactivity disorder) Bipolar disorder Diabetic peripheral neuropathy ROSIE (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) Surgical History Surgical History No pertinent past surgical history Family History Family History Father Bipolar disorder Schizophrenia Heart failure Mother Age: 37 Schizophrenia Diabetes mellitus Hypertension Bipolar disorder COPD (chronic obstructive pulmonary disease) Chronic kidney disease Social History Social History Social History: She has been involved with her boyfriend for the last 2 years. She has lived with her boyfriend and his family for the last year. 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 She reports that she drinks 5-6 alcoholic beverages every couple of months. Code status: Full code Smoking status: Never smoker Alcohol intake: current Drinks per week: 3 Substance use: former Substance use type: marijuana Last use: 2019 Lack of Transportation: No Lack of Food: Never True Current Housing: I Have Housing Concerned About Future Housing: No Difficulty Paying Gas/Electric Bills: No Difficulty Paying for Meds: No Currently Unemployed: No Education: High School Diploma/GED Difficulty w/ Childcare or Family Care: No Spiritual care concerns: No Exam Narrative: GENERAL APPEARANCE: WELL-DEVELOPED, WELL-NOURISHED SKIN: NORMAL COLOR HEAD: NORMOCEPHALIC, NONTRAUMATIC EYES: CLEAR CONJUNCTIVA ENT: OROPHARYNX NORMAL, EARS NORMAL, NOSE NORMAL NECK: SUPPLE, NONTENDER CHEST AND RESPIRATORY: AIRWAY PATENT, NO RESPIRATORY DISTRESS, NO ACCESSORY MUSCLE USE HEART: REGULAR RATE/RHYTHM ABDOMEN: SOFT, NONTENDER, NO ORGANOMEGALY, QUIET BOWEL SOUNDS VASCULAR: NORMAL PERIPHERAL PULSES, NORMAL CAPILLARY REFILL. MUSCULOSKELETAL: NORMAL RANGE OF MOTION, NONTENDER BACK NEUROLOGIC: ALERT AND ORIENTED ?3, ENAMEL PULVERIZER IS NORMAL TESTED, NO GROSS MOTOR DEFICIT Course Vital Signs Vital signs: Vital Signs Temperature 36.1 C L 10/06/24 06:56 Pulse Rate 90 10/06/24 06:56 Respiratory Rate 17 10/06/24 06:56 Blood Pressure 148/78 H 10/06/24 06:56 Pulse Oximetry 100 10/06/24 06:56 Oxygen Delivery Room Air 10/06/24 06:56 Temperature 36.1 C L 10/06/24 06:56 Pulse Rate 90 10/06/24 06:56 Respiratory Rate 17 10/06/24 06:56 Blood Pressure 148/78 H 10/06/24 06:56 Pulse Oximetry 100 10/06/24 06:56 Oxygen Delivery Room Air 10/06/24 06:56 Medical Decision Making MDM Narrative Medical decision making narrative: Differential diagnosis versus regular menstruation Patient tested negative for urine and serum Vital Signs Vital Signs: Vital Signs Temperature 36.1 C L 10/06/24 06:56 Pulse Rate 90 10/06/24 06:56 Respiratory Rate 17 10/06/24 06:56 Blood Pressure 148/78 H 10/06/24 06:56 Pulse Oximetry 100 10/06/24 06:56 Oxygen Delivery Room Air 10/06/24 06:56 Temperature 36.1 C L 10/06/24 06:56 Pulse Rate 90 10/06/24 06:56 Respiratory Rate 17 10/06/24 06:56 Blood Pressure 148/78 H 10/06/24 06:56 Pulse Oximetry 100 10/06/24 06:56 Oxygen Delivery Room Air 10/06/24 06:56 Lab Data Labs: Lab Results 10/06/24 Range/Units 07:50 Serum HCG, Qual Negative Critical Care Time Critical Care Time Critical Care Time: No Discharge Plan Discharge Clinical Impression: Normal physical exam Patient Disposition: Home Condition: Stable Instructions: Normal Exam (ED) Patient Language: Nepali Prescriptions: No Action diclofenac sodium 50 mg tablet,delayed release (DR/EC) 50 mg PO TID PRN (Reason: pain) Qty: 30 0RF methocarbamol 750 mg tablet 750 mg PO Q6H PRN (Reason: muscle spasm) Qty: 30 0RF lidocaine 5 % adhesive patch,medicated 1 patch topical DAILY Qty: 15 0RF Rx Instructions: leave on most painful area for up to 12 hrs clindamycin HCl 300 mg capsule 300 mg PO Q6H 7 Days Qty: 28 0RF naproxen 375 mg tablet 375 mg PO BID Qty: 14 0RF cefdinir 300 mg capsule 300 mg PO Q12H 7 Days Qty: 14 0RF clonidine HCl 0.2 mg tablet 0.2 mg PO HS dextroamphetamine-amphetamine 20 mg capsule,extended release 24hr 20 mg PO DAILY gabapentin 100 mg capsule 100 mg PO TID aripiprazole 10 mg tablet 10 mg PO DAILY insulin detemir U-100 100 unit/mL (3 mL) insulin pen 10 unit SUBCUT BID insulin aspart U-100 [Novolog U-100 Insulin aspart] 100 unit/mL Solution 10 unit subcut TIDWM 30 Days Qty: 9 0RF ondansetron 4 mg tablet,disintegrating 4 mg PO Q6H PRN (Reason: nausea and vomiting) Qty: 10 0RF hydrocodone-acetaminophen 5-325 mg tablet 1 tablet PO Q6H PRN (Reason: pain) Qty: 7 0RF doxycycline monohydrate 100 mg capsule 100 mg PO BID Qty: 14 0RF cefdinir 300 mg capsule 300 mg PO Q12H 7 Days Qty: 14 0RF ibuprofen 800 mg tablet 800 mg PO TID PRN (Reason: pain) 7 Days Qty: 21 0RF acetaminophen 500 mg tablet 1,000 mg PO TID PRN (Reason: melania) 7 Days Qty: 42 0RF oxycodone 5 mg tablet 5 mg PO Q4H PRN (Reason: pain) Qty: 7 0RF cephalexin 500 mg capsule 500 mg PO Q6H 7 Days Qty: 28 0RF ondansetron 4 mg tablet,disintegrating 4 mg PO Q8H PRN (Reason: nausea and vomiting) Qty: 15 0RF ibuprofen 800 mg tablet 800 mg PO TID PRN (Reason: pain) 7 Days Qty: 21 0RF acetaminophen 500 mg tablet 1,000 mg PO TID PRN (Reason: melania) 7 Days Qty: 42 0RF methocarbamol 750 mg tablet 1,500 mg PO TID Qty: 42 0RF Follow-up/Referrals: Alpesh,DO Gerber [Primary Care Provider] -
--- OUTSIDE RECORDS SUMMARY | 2024-10-06 07:24 | XMS_ITS | Clinical Summary ---
Author Organization [facility] Address [address] [place] [address] Care Team Providers Care Ap Operator Name Role Phone JoshsteveGerber arnold Kg LOGAN Primary Care Provider + Source Comments [facility],non-owned Affiliates and Associated Physician Practices is amultiple site organization consisting of ambulatory clinics and hospital sitesin [place], [place], [place] and [place]. This disclosure is being madepursuant to the Care Everywhere program and may not contain all information available regarding this patient. Last updated 18.[facility] Allergies Active Allergy Reactions Criticality Noted Date [...] mg/g (< 30) Jul 19, 2016 ([place], [place]): first morning voided urine microalbumin/creatinine: 23 ug/g (< 30) Apr 20, 2016 - spot urine microalbumin/creatinine: 36 mg/g (< 30) Jul 19, 2016 ([facility], [place], [place]): first morning voided urine microalbumin/creatinine: 23 ug/g (< 30) Last Assessment & Plan: ? Nonspecific vs early diabetic related microalbuminuria 1. Obtain first morning voided urine specimen for microalbumin/creatinine ratio (laboratory requisition given at the time of the office visit). 2. Expectant observation. 3. Return appointment in three months. Assessment & Plan (06/29/2016 12:53 PM [facility]): ? Nonspecific vs early diabetic related microalbuminuria 1. Obtain first morning voided urine specimen for microalbumin/creatinine ratio (laboratory requisition given at the time of the office visit). 2. Expectant observation. 3. Return appointment in three months. Controlled type 2 diabetes bisi garcia without complication, without long-term current use of insulin 04/21/2016 Overview (06/29/2016): Apr 15, 2016 - [facility], [address] [place] [address] Na 143 mmol/L, K 4.4 mmol/L, Cl [...] months. Assessment & Plan (06/29/2016 12:48 PM [facility]): Good glycemic control. 1. Metformin 1000 mg bid 2. Home glucose monitoring twice daily. 3. Daily physical exercise (60 minutes daily) to promote weight loss 4. Return appointment in three months. Assessment & Plan (04/21/2016 4:13 PM [facility]): New onset, probably type II, diabetes mellitus. [...] mg/dL (< 130) Jul 19, 2016 - [facility] Cholesterol 151 mg/dL (140-199), triglycerides 235 mg/dL (< 150), HDL- cholesterol 37 mg/dL (> 40), LDL-cholesterol 67 (< 130) cholesterol 261 mg/dL (100-170); triglyceride 925 mg/dL (140-199), HDL- cholesterol 41 mg/dL (< 150), LDL-cholesterol mg/dL (< 130) Jul 19, 2016 - [facility] Cholesterol 151 mg/dL (140-199), triglycerides 235 [...] sweets/fats Assessment & Plan (06/29/2016 12:45 PM [facility]): 1. Dietary counseling provided 2. Fasting lipid profile (laboratory requisition given at the time of the office visit). .3 Return appointment in three months. Assessment & Plan (04/21/2016 4:13 PM [facility]): ? Familial 1. Fasting lipid profile 2. [...] BURGOS) Assessment & Plan (06/29/2016 12:46 PM [facility]): ? Nonspecific elevation vs evolving BURGOS 1. Repeat serum ALT level (laboratory requisition given at the time of the office visit). 3. Expectant observation. 3. Return appointment in three months. Assessment & Plan (04/21/2016 4:14 PM [facility]): ? BURGOS 1. Repeat serum AST/ALT in one month. 2. Consider referral to Pediatric Gastroenterology Type 2 diabetes mellitus with polyneuropathy Overview (07/16/2024): Apr 15, 2016 - [facility], [address], [place], [place] [address] Na 143 mmol/L, K 4.4 mmol/L, Cl [...] Type Department Care Team Description 09/30/2024 Telephone [facility] [address] [place] [address]. [address] [place] [address] Myesha Farr GC Results 09/17/2024 Telephone [facility] [address] [place] [address] Myesha Farr GC Results (Chromosome Analysis) 09/13/2024 Telephone [facility] [address] [place] [address] Alessio Quezada MD Results 09/06/2024 1:35 PM CDT - 09/06/2024 11:59 PM CDT Hospital Encounter [facility] [address] [place] [address] Jered Solis MD Discharge Disposition: Home or Self Care 09/06/2024 Travel 08/16/2024 Telephone [facility] [address] [place] [address] Myesha Farr GC Follow-up 08/06/2024 Telephone [facility] [address] [place] [address] Myesha Farr GC Results 07/29/2024 Telephone [facility] - [employer] [address] [place] [id number] Karla Zamudio MD Question 07/26/2024 12:11 PM [facility] - 07/26/2024 11:59 PM [facility] Hospital Encounter [facility] [address] [place] [address] Jered Solis MD Discharge Disposition: Home or Self Care 07/26/2024 Travel 07/25/2024 Telephone [facility] [address] [place] [address] Mercedes Tejada Scheduling 07/24/2024 11:30 AM [facility] - 07/24/2024 2:19 PM [facility] Emergency ER at [facility] [address] [place] [address] Vaginal bleeding Discharge Disposition: Home or Self Care 07/24/2024 Travel 07/24/2024 Telephone [facility] [address] [place] [address] Janice Duarte, CARL Vaginal Bleeding 07/18/2024 12:16 PM [facility] Anesthesia Event [facility] [address] [place] [address] Lamin Llanes MD 07/18/2024 12:05 PM [facility] - 07/18/2024 1:02 PM [facility] Surgery [facility] [address] [place] [address] Karla Zamudio MD SUCTION DILATION AND CURETTAGE 07/18/2024 9:32 AM [facility] - 07/18/2024 3:47 PM [facility] Hospital Encounter [facility] [address] [place] [address] Karla Zamudio MD Surgery General Discharge Disposition: Home or Self Care 07/18/2024 Travel 07/17/2024 Patient Outreach [facility] [address] [place] [address] Yazmin Blackmon RN Care Management (Received a referral for SDOH needs. US report states no cardiac activity and pt has a scheduled D&C tomorrow. Will close this referral. ) 07/16/2024 11:34 AM [facility] - 07/16/2024 11:59 PM [facility] Hospital Encounter [facility] [address] [place] [address] Kimmy Sanderson MD Discharge Disposition: Home or Self Care 07/16/2024 11:33 AM [facility] Hospital Encounter [facility] [address] [place] [address] Kimmy Sanderson MD Discharge Disposition: Home or Self Care 07/16/2024 11:32 AM [facility] Hospital Encounter [facility] [address] [place] [address] Alphonse Quispe MD Discharge Disposition: Home or Self Care 07/16/2024 11:31 AM [facility] Hospital Encounter [facility] [address] [place] [address] Alphonse Quispe MD Discharge Disposition: Home or Self Care 07/16/2024 Travel 07/11/2024 Telephone [facility] [address] [place] [address] Radha Romero, groundskeeping yardman from Last 3 Months Immunizations Immunization Administration [...] medical care, and heating? Somewhat hard 07/16/2024 [facility] - Occupational Stress [...] things needed for daily living? No 07/16/2024 Sims Depression Scale Answer Date Recorded Sims Depression Scale Total 11 07/16/2024 The thought [...] time in the past 12 m [facility], were you homeless or living in a halfway (including now)? No 07/16/2024 Estimated Date of Delivery Comme nts Yes 01/26/2025 Based on last me nstrual period of 04/21/2024 Sex and Gender Information Value Date Recorded Sex Assigned at Not on file Legal Sex Female 6:36 AM [facility] Gender Identity Not on file Sexual Orientation Not on file Last Filed Vital Signs Vital Sign Reading Time Taken Comments Blood Pressure 131/74 09/06/2024 1:42 PM CDT Pulse 98 09/06/2024 1:42 PM CDT Temperature 36.7 C (98 F) 07/24/2024 10:06 AM [facility] Respiratory Rate 17 07/24/2024 10:06 AM [facility] Oxygen Saturation 99% 07/24/2024 10:06 AM [facility] Inhaled Oxygen Concentration - - Weight 87 kg (191 lb 12.8 oz) 09/06/2024 1:42 PM CDT Height 162.6 cm (5' 4 ) 07/18/2024 10:04 AM [facility] Body Mass Index 32.92 07/18/2024 10:04 AM [facility] Plan of Treatment Upcoming Encounters Date Type Department Care Team (Late st Contact Info) Description 09/12/2025 2:00 PM CDT Appointment [facility] [address] [place] [address] [address] [place] [address] Health Maintenance Due Date Last Done Comments [...] current HEMOGLOBIN A1C Routine 07/26/2024 1:10 PM [facility] Controlled type 2 diabetes mellitus without complication, without long-term current use of insulin US PELVIS W TRANSVAG W DOP NON OB STAT 07/24/2024 12:42 PM [facility] Vaginal bleeding TYPE + SCREEN PANEL STAT 07/24/2024 1 0:39 AM [facility] HCG BETA BLOOD QUANTITATIVE STAT 07/24/2024 10:39 AM [facility] COMPREHENSIVE METABOLIC PANEL STAT 07/24/2024 10:39 AM [facility] CBC W AUTO DIFFERENTIAL STAT 07/24/2024 10:39 AM [facility] CARDIAC RHYTHM STRIP ORDER 07/22/2024 10:40 PM [facility] GLUCOSE - POINT OF CARE Routine 07/18/2024 1:06 PM [facility] PATHOLOGY TISSUE EXAM (STL) Routine 07/18/2024 12:37 PM [facility] Diagnosis unknown LARYNGEAL MASK AIRWAY Routine 07/18/2024 12:23 PM [facility] WY SURG RX MISSED MISCARRIAGE,1ST TRI 07/18/2024 11:49 AM [facility] Diagnosis unknown BLOOD TYPE VERIFICATION Routine 07/18/2024 10:25 AM [facility] Pre-op testing TYPE + SCREEN PANEL BERONICA 07/18/2024 1 0:19 AM [facility] Pre-op testing GLUCOSE - POINT OF CARE Routine 07/18/2024 10:18 AM [facility] BETA-2 GLYCOPROTEIN 1 ANTIBODY IGG/IGM PANEL Routine 07/16/2024 3:37 PM [facility] Recurrent loss without current CARDIOLIPIN ANTIBODY IGG/IGM PANEL Routine 07/16/2024 3:37 PM [facility] Recurrent loss without current LUPUS ANTICOAGULANT PANEL Routine 07/16/2024 3:37 PM [facility] Recurrent loss without current TSH REFLEX FREE T4 Routine 07/16/2024 3: 37 PM [facility] Recurrent loss without current SONOGRAM - COMPLETE Routine 07/16/2024 1 :23 PM [facility] MICROALB/CREAT RATIO URINE RANDOM PANEL Routine 02/02/2017 2:38 PM CDT Controlled type 2 diabetes mellitus without complication, without long-term current use of insulin from Last 3 Months or Most Recently Relevant to Health Maintenance Results * PAP IG LB RFLX HPV APTIMA ASCU (09/06/2024 2:14 PM CDT) Diagnosis Comment 09/11/2024 11:10 AM CDT [facility] Comment: NEGATIVE FOR INTRAEPITHELIAL LESION OR MALIGNANCY. THIS SPECIMEN WAS RESCREENED PART OF OUR MARKETING PRODUCTION MANAGER PROGRAM. Specimen Adequacy Comment 025 11:10 AM CDT [facility] ([facility] Comment: Satisfactory for evaluation. Endocervical and/or squamous metaplastic cells (endocervical component) are present. Performed by Comment 09/11/2024 11:10 AM CDT [facility] ([facility] Comment:Riley Cancino, Cytot echnologist ([facility]) QC Reviewed by Comment 09/11/2024 11:10 AM CDT [facility] ([facility] Comment:Luz Maria guajardo, Senior Net Developer Architect ([facility]) Comment . 09/11/2024 11:10 AM CDT [facility] Note Comment 09/11/2024 11:10 AM CDT [facility] ([facility] Comment: The Pap smear is a screening test designed to aid in the detection of premalignant and malignant conditions of the uterine cervix. It is not a diagnostic procedure and should not be used as the sole means of detecting cervical cancer. Both false-positive and false-negative reports do occur. [facility] CPT Code Automation Comment 09/11/2024 11:10 AM CDT [facility] ([facility] Comment: This liquid based ThinPrep(R) pap test was screened with the use of an image guided system. Note Comment 09/11/2024 11:10 AM CDT [facility] ([facility] Comment: The HPV DNA reflex criteria were not met with this specimen result therefore, no HPV testing was performed. Pathology/Cytolo gy ENTIRE ENDOCERVIX / Unknown Collection / Unknown 09/06/2024 2:14 PM CDT 09/06/2024 2:48 PM CDT [facility] - 09/11/2024 11:10 AM CDT Performed at: 01 - [address] [id number] Learning Manager: Rebeka Vargas MD, Phone: [phone] Specimen Comment: No. of containers..01 ThinPrep Vial us Jered Solis MD LAB - PATHOLOGY/CYTOLOGY ORDER ELIOT Final Result [facility] ([facility]) [address] [place] [address] * CYTOGENOMIC SNP MICROARRAY (09/06/2024 2:00 PM CDT) Pathologist [facility] Cytogenomic SNP Microarray Normal Normal 09/18/2024 9:14 AM CDT [facility] ([facility] Comment: Test Performed: Cytogenomic SNP Microarray (CITY COUNCIL MEMBER SNP) Specimen Type: Peripheral blood Indication for Testing: Recurrent loss --- RESULT SUMMARY Normal Microarray Result (Female) --- RESULT DESCRIPTION No clinically significant copy number changes or regions of homozygosity were detected. INTERPRETATION This analysis showed a normal result. Health care providers with questions may contact an [facility] genetic counselor at ext. [phone]. Cytogenomic Nomenclature (ISCN): arr (X,1-22)x2 Technical Information - This assay was performed using the Mems-ID(i'mma HD Suite ([employer]) according to validated protocols within the Genomic Microarray Laboratory at [facility] - This assay is designed to detect alterations to DNA copy number state (gains and losses) as well as copy-neutral alterations (regions of homozygosity; ELIAS) that indicate an absence- or awkk-kv-xkmnomeaswdvou (AOH or SELAM) - AOH may be present due to parental relatedness (consanguinity) or uniparental disomy (UPD) - SELAM may be present due to acquired UPD (segmental or whole chromosome) - The detection sensitivity (resolution) for any particular genomic region may vary dependent upon the number of probes (markers), probe spacing, and thresholds for copy number and ELIAS determination - The Benchcan HD array contains 2.67 million markers across [...] performed in accordance with recommendations by the [employer] [place] [employer] ([employer]), [...] used in CNV classification, please refer to [facility] Constitutional CNV Assertion Criteria, which can be found on [facility]'s Genetics website at [email or web address] - CNVs classified as likely benign or [...] to improve understanding of specific genetic variants, [facility] submits HIPAA-compliant, de-identified (cannot be traced back to the patient) genetic test results and health information to public databases. The confidentiality of each sample is maintained. If you prefer that your test result not be shared, call [facility] at ext. [phone]. Your de-identified information will not be disclosed to public databases after your request is received, but a separate request is required for each genetic test. Additionally, patients have the opportunity to participate in patient registries and research. To learn more, visit [facility] Genetics website at [email or web address]. This result has been reviewed and approved by Janis Garrison, PhD, [facility] A portion of this analysis was performed at the following location(s): [facility] CG-[place]#2 INTERPRETIVE INFORMATION: CYTOGENOMIC SNP MICROARRAY This test was developed and its performance characteristics determined by [facility]. It has not been cleared or approved by the [place] Food and Drug Administration. This test was performed in a CLIA certified laboratory and is intended for clinical purposes. Counseling and informed consent are recommended for genetic testing. Consent forms are available online. Performed By: [facility] [address] [id number] Claim Inspector: Zak Garcia MD, PhD CLIA Number: [id number] Blood BLOOD SPECIMEN / Unknown Lab Venipuncture / Unknown 09/06/2024 2:00 PM CDT 09/06/2024 2:42 PM CDT us Jered Solis MD LAB - CHEMISTRY ORDERABLES Fin al Result [facility]) [address] [place] [address], [facility] * CHROMOSOME ANALYSIS BLOOD PANEL (09/06/2024 2:00 PM CDT) [facility] Chromosome Analysis Peripheral Blood See Note Normal 09/17/2024 11:46 AM CDT [facility] ([facility] Comment: Test Performed: Chromosome Analysis Specimen [...] care providers with questions may contact an [facility] genetic counselor at ext. [phone]. NOTE: Genomic microarray analysis will be reported separately under [facility] accession [id number]. This result has been reviewed and approved by Saqib Cervantes, PhD, [facility] A portion of this analysis was performed at the following location(s): [facility] Site [facility]-[place]#1 [facility] INTERPRETIVE INFORMATION: Chromosome Analysis Constitutional Blood This test was developed and its performance characteristics determined by [facility]. It has not been cleared or approved by the US Food and Drug Administration. This test was performed in a CLIA certified laboratory and is intended for clinical purposes. Counseling and informed consent are recommended for genetic testing. Consent forms are available online. [facility] Chromosome Analysis Peripheral See Note 09/17/2024 11:46 AM CDT [facility] ([facility]) Comment: Authorized individuals can access the [facility] Enhanced Report with an [facility] Connect account using the following link. Your local lab can assist you in obtaining the patient report if you don't have a Connect account. [email or web address] Performed By: [facility] [address] [id number] Claim Inspector: Zak Garcia MD, PhD CLIA Number: [id number] Blood BLOOD SPECIMEN / Unknown Lab Venipuncture / Unknown 09/06/2024 2:00 PM CDT 09/06/2024 2:42 PM CDT us Jered Solis MD LAB - PATHOLOGY/CYTOLOGY ORDER ELIOT Final Result [facility] ([facility] [address] [place] [address], [facility] * (ABNORMAL) HEMOGLOBIN A1C (07/26/2024 1:10 PM [facility]) Hemoglobin A1c 8.2(H) <5.7 % 07/26/2024 3:17 PM [facility] Estimated Average Glucose 189 mg/dL 07/26/2024 3:17 PM [facility] Blood BLOOD SPECIMEN / Unknown Venipuncture / Unknown 07/26/2024 1:10 PM [facility] 07/26/2024 3:01 PM [facility] Narrative [facility] - 07/26/2024 3:17 PM [facility] HbA1c Interpretation: Normal: < 5.7% Pre-diabetes: 5.7-6.4% [...] ORDERABLES Fin al Result Performing Organization Address City/State/[facility] Co de Phone Number [facility] [address], [place] [id number] * US Pelvis W Transvag W Dop Non Ob (07/24/2024 12:42 PM [facility]) Anatomical Region Laterality Modality Pelvis Ultrasound 07/24/2024 12:5 0 PM [facility] Narrative 07/24/2024 12:52 PM [facility] PROCEDURE: US PELVIS W TRANSVAG W DOP NON OB, DATE/TIME OF EXAM: 07/24/2024 12:47 PM, LOCATION [facility] INDICATION: N93.9: Abnormal uterine and vaginal [...] DATE/TIME OF EXAM: 07/24/2024 12:47 PM, LOCATION [facility] INDICATION: N93.9: Abnormal uterine and vaginal [...] TYPE + SCREEN PANEL (07/24/2024 10:39 AM [facility]) Only the most recent of2 resultswithin the time period is included. ABO Rh O POS 07/24/2024 11:30 AM [facility] Comment:History checked. Antibody Screen NEG 11:30 AM [facility] Blood Bank BLOOD SPECIMEN / Unknown Venipuncture / Unknown 07/24/2024 10:39 AM [facility] 07/24/2024 10:48 AM [facility] Andrea Rawls APNP-ACTUARIAL MANAGER LAB - BLOOD BANK ORDER ELIOT Final Result [facility] [address] [phone] * (ABNORMAL) CBC W AUTO DIFFERENTIAL (07/24/2024 10:39 AM [facility]) WBC 11.4(H) 4.0 - 10.7 x10E9/L 07/24/2024 10:50 AM [facility] RBC Count 3.84(L) 3.90 - 5.20 x10E12/L 07/24/2024 10:50 AM [facility] Hemoglobin 10.5(L) 11.9 - 15.8 g/dL 07/24/2024 10:50 AM [facility] Hematocrit 31.6(L) 34.8 - 46.1 % 07/24/2024 10:50 AM [facility] MCV 82.3 80.0 - 98.0 fL 07/24/2024 10:50 AM [facility] MCH 27.3 26.7 - 33.6 pg 07/24/2024 10:50 AM [facility] MCHC 33.2 31.7 - 36.3 g/dL 07/24/2024 10:50 AM [facility] RDW-CV 13.4 11.3 - 14.8 % 07/24/2024 10:50 AM [facility] Platelet Count 332 150 - 420 x10E9/L 07/24/2024 10:50 AM [facility] MPV 11.2 7.8 - 11.4 fL 07/24/2024 10:50 AM [facility] Neutrophil % 76.0(H) 41.0 - 74.0 % 07/24/2024 10:50 AM [facility] Lymphocyte % 15.9(L) 17.0 - 47.0 % 07/24/2024 10:50 AM [facility] Monocyte % 5.1 3.0 - 11.0 % 07/24/2024 10:50 AM [facility] Eosinophil % 1.8 0.0 - 7.0 % 07/24/2024 10:50 AM [facility] Basophil % 0.4 0.0 - 1.6 % 07/24/2024 10:50 AM [facility] Immature Granulocytes % 0.8 0.0 - 1.0 % 07/24/2024 10:50 AM [facility] Neutrophil Absolute 8.68(H) 1.60 - 7.50 x10E9/L 07/24/2024 10:50 AM [facility] Lymphocyte Absolute 1.81 1.00 - 4.40 x10E9/L 07/24/2024 10:50 AM [facility] Monocyte Absolute 0.58 0.15 - 1.00 x10E9/L 07/24/2024 10:50 AM [facility] Eosinophil Absolute 0.21 0.00 - 0.60 x10E9/L 07/24/2024 10:50 AM [facility] Basophil Absolute 0.04 0.00 - 0.13 x10E9/L 07/24/2024 10:50 AM [facility] Blood BLOOD SPECIMEN / Unknown Venipuncture / Unknown 07/24/2024 10:39 AM [facility] 07/24/2024 10:48 AM [facility] - HEM[facility] ORDER ELIOT Final Result [facility] [address] [place] [address] * (ABNORMAL) COMPREHENSIVE METABOLIC PANEL (07/24/2024 10:39 AM [facility]) [facility] Signature Glucose 275(H) 70 - 99 mg/dL 07/24/2024 11:03 AM [facility] Sodium 136 136 - 145 mmol/L 07/24/2024 11:03 AM [facility] Potassium 4.4 3.5 - 5.1 mmol/L 07/24/2024 11:03 AM [facility] Chloride 106 98 - 107 mmol/L 07/24/2024 11:03 AM [facility] CO2 21(L) 22 - 29 mmol/L 07/24/2024 11:03 AM [facility] Calcium 8.8 8.4 - 10.4 mg/dL 07/24/2024 11:03 AM [facility] Anion Gap 9 6 - 16 mmol/L 07/24/2024 11:03 AM [facility] BUN 14 5.3 - 18.7 mg/dL 07/24/2024 11:03 AM [facility] Creatinine 0.67 0.57 - 1.11 mg/dL 07/24/2024 11:03 AM [facility] Alkaline Phosphatase 55 40 - 150 U/L 07/24/2024 11:03 AM [facility] ALT 18 0 - 55 U/L 07/24/2024 11:03 AM [facility] AST 21 5 - 34 U/L 07/24/2024 11:03 AM [facility] Protein Total 7.1 6.4 - 8.3 gm/dL 07/24/2024 11:03 AM [facility] Albumin 3.3(L) 3.4 - 5.0 gm/dL 07/24/2024 11:03 AM [facility] Bilirubin Total 0.3 0.2 - 1.2 mg/dL 07/24/2024 11:03 AM [facility] eGFR by CKD-EPI >90 >=90 mL/min/1.7 3 m2 07/24/2024 11:03 AM [facility] Blood BLOOD SPECIMEN / Unknown Venipuncture / Unknown 07/24/2024 10:39 AM [facility] 07/24/2024 10:48 AM [facility] Andrea Rawls APNP-ACTUARIAL MANAGER LAB - CHEMISTRY ORDERA BLES Final Result Performing Organization Address City/State/[facility] Co de Phone Number [facility] [address], [place] [id number] * HCG BETA BLOOD QUANTITATIVE (07/24/2024 10:39 AM [facility]) [facility] hCG Quantitative 365.89 mIU/mL 07/24/19 11:47 AM [facility] Blood BLOOD SPECIMEN / Unknown Venipuncture / Unknown 07/24/2024 10:39 AM [facility] 07/24/2024 10:48 AM [facility] Narrative [facility] - 07/24/2024 11:47 AM [facility] hCG Reference Range, mIU/mL: Non Females 0-6.0 [...] Final Result Performing Organization Address [facility]/ZIP Co de Phone Number [facility] [address] [place] [id number] * CARDIAC RHYTHM STRIP ORDER (07/22/2024 10:40 PM [facility]) Narrative 07/22/2024 10:40 PM [facility] Ordered by an unspecified provider. Scanned Document CARDIAC SERVICES ORDERABLES Fin al Result * (ABNORMAL) GLUCOSE - POINT OF CARE (07/18/2024 1:06 PM [facility]) Only the most recent of2 resultswithin the time period is included. Glucose WB/POC 133(H) 70 - 99 mg/dL 07/20/2024 1:56 AM [facility] Specimen Type Cap Fingerstick 2024 1:56 AM [facility] Blood BLOOD SPECIMEN / Unknown 07/18/2024 1:06 PM [facility] 07/20/2024 1:56 AM [facility] Karla Zamudio MD LAB - POINT OF CARE ORDERABLES F inal Result Performing Organization Address [facility]/ZIP Co de Phone Number [facility] [address] [place] [phone] * PATHOLOGY TISSUE EXAM (STL) (07/18/2024 12:37 PM [facility]) Case Report Surgical Pathology Report Case: [id number] Authorizing Provider: Karla Zamudio MD Collected: 07/18/2024 12:37 PM Ordering Location: [facility] Received: 07/18/2024 01:15 PM Pathologist: Kirt Billings MD Specimen: Products of Conception 07/19/2024 9:40 AM [facility] Final Diagnosis Uterine contents, dilation and curettage: Products of conception. 07/19/2024 9:40 AM [facility] Clinical History Missed 07/19/2024 9:40 AM [facility] Gross Description The specimen is identified with the patient's name and date of . Received in formalin, labeled specimen A, products of conception are multiple fragments of soft pink brasher tissue admixed with blood clot measuring 5 x 5 x 5 cm in aggregate. parts are not identified. Air Conditioning [employer]ic Industrial sections submitted in cassette [id number]. JULIO CESAR/DAVID 07/19/2024 9:40 AM [facility] Microscopic Description Sections show immature chorionic villi and decidua. 07/19/2024 9:40 AM [facility] Pathologist Location at [facility] 07/19/2024 9:40 AM [facility] Disclaimer All histochemical and/or immunohistochemical results are interpreted with controls that demonstrate appropriate staining reactions before reporting results. Note on use of immunocytochemistry reagents: This test was developed and its performance characteristic determined by [facility], Department of Laboratory Medicine. It [...] be interpreted with caution. 07/19/2024 9:40 AM [facility] Embedded Images 07/19/2024 9:40 AM [facility] Pathology/Cytolo gy PRODUCTS OF CONCEPTION TISSUE SPECIMEN / Unknown 07/18/2024 12:37 PM [facility] 07/18/2024 1:15 PM [facility] Comment:Pre-op diagnosis: Diagnosis unknown [R69] Result [facility] Karla Zamudio MD LAB - PATHOLOGY/CYTOLOGY ORDERAB LES Final Result Performing Organization Address [facility] Co de Phone Number [facility] [address] [place] [address] * LARYNGEAL M[employer]WAY (07/18/2024 12:23 PM [facility]) Narrative Alessio Fuentes APRN-CRNA - 07/18/2024 12:23 PM [facility] Alessio Fuentes APRN-CRNA 07/18/2024 12:23 PM [facility] [...] #1: Khoi Ortega, Performed the procedure. Result [facility] Lamin Llanes MD GENERAL ANESTHESIA ORDERABL ES Final Result * BLOOD TYPE VERIFICATION (07/18/2024 10:25 AM [facility]) ABO Rh O POS 07/18/2024 10:55 AM [facility] Blood Bank BLOOD SPECIMEN / Unknown Venipuncture / Unknown 07/18/2024 10:25 AM [facility] 07/18/2024 10:26 AM [facility] Result [facility] Artemio Casanova MD LAB - BLOOD BANK ORDERABLES Deidra l Result Performing Organization Address [facility] Co de Phone Number [facility] [address] [place] [address] * TSH REFLEX FREE T4 (07/16/2024 3:37 PM [facility]) TSH 0.466 0.350 - 4.940 uIU/mL 07/16/2024 4:32 PM [facility] Blood BLOOD SPECIMEN / Unknown Venipuncture / Unknown 07/16/2024 3:37 PM [facility] 07/16/2024 3:51 PM [facility] Gerber Bah MD LAB - CHEMISTRY ORDERAB LES Final Result [facility] [address] [place] [phone] * LUPUS ANTICOAGULANT PANEL (07/16/2024 3:37 PM [facility]) Pathologist [facility] APTT 27.4 23.0 - 38.4 Seconds 07/19/2024 10:07 AM [facility] PT 12.9 12.1 - 14.8 Seconds 07/19/2024 10:07 AM [facility] INR 1.0 See Comment 07/19/2024 10:07 AM [facility] Buffer 46.2 Seconds 025 10:07 AM [facility] [place] Phospholipid 40.4 Seconds 07/19/2024 10:07 AM [facility] [place] Delta 5.8 <8.0 Seconds 07/19/2024 10:07 AM [facility] Interpretation [place] Negative 07/19/2024 10:07 AM [facility] Comment:Up to 15-20% of yoel ents [...] Unknown Venipuncture / Unknown 07/16/2024 3:37 PM [facility] 07/16/2024 3:51 PM [facility] Gerber Bah MD LAB - HEMATOLOGY ORDERA BLES Final Result [place] [phone], [facility] [phone] * CARDIOLIPIN ANTIBODY IGG/IGM PANEL (07/16/2024 3:37 PM [facility]) Cardiolipin Antibody IgG <9 0 - 14 GPL U/mL 07/18/2024 3:07 PM [facility] Comment: Negative: <15 Indeterminate: 15 - 20 Low-Med Positive: >20 - 80 High Positive: >80 Cardiolipin Antibody IgM <9 0 - 12 MPL U/mL 07/18/2024 3:07 PM [facility] Comment: Negative: <13 Indeterminate: 13 - 20 Low-Med Positive: >20 - 80 High Positive: >80 Blood BLOOD SPECIMEN / Unknown Venipuncture / Unknown 07/16/2024 3:37 PM [facility] 07/16/2024 3:51 PM [facility] Narrative [facility] - 07/18/2024 3:07 PM [facility] Performed at: 01 - [address] [id number] Learning Manager: Ad Harris PhD, Phone: [phone] Gerber Bah MD LAB - SEROLOGY ORDERABL ES Final Result Performing Organization Address City/[facility]/ZIP Co de Phone Number [facility] [address] [place] [address] * BETA-2 GLYCOPROTEIN 1 ANTIBODY IGG/IGM PANEL (07/16/2024 3:37 PM [facility]) Beta-2 Glycoprotein I Antibody IgG <9 0 - 20 GPI IgG units 07/18/2024 2:08 PM [facility] Comment: The reference interval reflects a 3SD or 99th percentile interval, which is thought to represent a potentially clinically significant result in accordance with the International Consensus Statement on the classification criteria for definitive antiphospholipid syndrome (APS). J Thromb Haem 2006;4:295-306. Beta-2 Glycoprotein I Antibody IgM <9 0 - 32 GPI IgM units 07/18/2024 2:08 PM [facility] Comment: The reference interval reflects a 3SD or 99th percentile interval, which is thought to represent a potentially clinically significant result in accordance with the International Consensus Statement on the classification criteria for definitive antiphospholipid syndrome (APS). J Thromb Haem 2006;4:295-306. Blood BLOOD SPECIMEN / Unknown Venipuncture / Unknown 07/16/2024 3:37 PM [facility] 07/16/2024 3:51 PM [facility] Narrative [facility] - 07/18/2024 2:08 PM [facility] Performed at: 01 - [address] [id number] Learning Manager: Ad Harris PhD, Phone: [phone] Gerber Bah MD LAB - CHEMISTRY ORDERAB LES Final Result Performing Organization Address City/State/[facility] Co de Phone Number [facility] [address] [place] [address] * SONOGRAM - COMPLETE (07/16/2024 1:23 PM [facility]) Linked Results Indication ======== Dating/NT Abnormal NIPT [...] 12 w + 2 d 01/26/2025 Stated DALREEN 12 w + 2 d 01/26/2025 U/S [...] discuss plan of care. Coding ====== Procedures 04329: 1st Trimester Fenergo PACS Anatomical Region Laterality Modality Other 07/16/2024 1:23 PM [facility] us Augusta Leggett MD [facility] ORDERABLES Edited R esult - Final * (ABNORMAL) MICROALB/CREAT RATIO URINE RANDOM PANEL (02/02/2017 2:38 PM CDT) Creatinine Urine 103.98 mg/dL 02/03/20 17 4:18 PM CDT [facility] Microalbumin Urine 3.3(H) <1.7 mg/dL 02/02/2017 4:18 PM CDT [facility] Microalbumin/Crea tinine Ratio 32(H) <30 mg/g 02/02/2017 4:18 PM CDT [facility] Urine URINE SPECIMEN OBTAINED BY CLEAN CATCH PROCEDURE / Unknown Collection / Unknown 02/02/2017 2:38 PM CDT 02/02/2017 3:10 PM CDT us Deon Monteiro MD LAB - URINE CHEMISTRY ORDERABLES Final Result [facility] [address] [place] [address] from Last 3 Months or Most Recently Relevant to Health Maintenance Insurance Care Teams Ap Operator Relationship Specialty Start Date End Date Gerber Betts DO [address] [place] [id number] PCP - General Family Medicine Geriatric Medicine 07/18/24
--- OUTSIDE RECORDS SUMMARY | 2024-10-06 07:24 | XMS_ITS | Clinical Summary ---
Author Organization [facility] Address [address] [place] [address] Care Team Providers Care Accounting System Expert Name Role Phone Gerber Betts Kg LOGAN [...] tabletIndications: Type 2 diabetes mellitus with polyneuropathy ([facility]) Take 1 tablet daily for 2 weeks, then take 2 tablets daily there after 60 tablet 2 4 Active Active Problems Problem Noted Date Diagnosed Date Hidradenitis suppurativa 06/13/2023 Bipolar 1 disorder, depressed ([facility]) 06/13/2020 Urine test positive for microalbuminuria 017 Overview (06/13/2023): Apr 20, 2016 - spot urine microalbumin/creatinine: 36 mg/g (< 30) Jul 19, 2016 ([place], [place]): first morning voided urine microalbumin/creatinine: 23 ug/g (< 30) Last Assessment & Plan: ? Nonspecific vs early diabetic related microalbuminuria 1. Obtain first morning voided urine specimen for microalbumin/creatinine ratio (laboratory requisition given at the time of the office visit). 2. Expectant observation. 3. Return appointment in three months. Type 2 diabetes mellitus wit h polyneuropathy ([facility]) 04/21/2016 Overview (06/13/2023): Apr 15, 2016 - [facility], [address] [place], [place] [address] Na 143 mmol/L, K 4.4 mmol/L, Cl [...] associat ed with type 2 diabetes mellitus ([facility]) 2016 Encounters Date Type Department Care [...] Comments Blood Pressure 104/66 06/13/2023 8:52 AM FLATWORK TIER Pulse 66 06/13/2023 8:52 AM FLATWORK TIER Temperature 36.3 C (97.4 F) 06/13/2023 8:52 AM FLATWORK TIER Respiratory Rate 16 06/13/2023 8:52 AM FLATWORK TIER Oxygen Saturation 97% 06/13/2023 8:52 AM FLATWORK TIER Inhaled Oxygen Concentration - - Weight 87.3 kg (192 lb 6.4 oz) 06/13/2023 8:52 A M FLATWORK TIER Height 162.6 cm (5' 4 ) 06/13/2023 8:52 AM FLATWORK TIER Body Mass Index 33.03 06/13/2023 8:52 AM FLATWORK TIER Plan of Treatment Upcoming Encounters Date Type Department Care Team (Late st Contact Info) Description 10/07/2024 2:00 PM CDT Office Visit [facility] Family & Internal Medicine - [address] [phone] Gerber Betts DO [address] [place] [id number] Health Maintenance Due Date Last Done Comments [...] Vaccine ( - ) 02/04/2024 PHQ-2 (Physician [place]) 06/05/2024 06/13/2023 Diabetes: Retinopathy Eye Exam 08/27/2025 [...] Anatomical Region Laterality Modality Other 09/28/2024 Result [facility] Scanned SCANNING Final Resu lt * CT GENERIC (09/17/2024) Anatomical Region Laterality Modality Other 09/17/2024 Result [facility] Scanned SCANNING Final Resu lt * OUTSIDE LAB (SCAN ORDER) (09/17/2024) Only the most recent of11 resultswithin the time period is included. 09/17/2024 Result [employer] [facility] Scanned SCANNING Final Resu lt * ULTRASOUND GENERIC (SCAN ORDER) (09/17/2024) Anatomical Region Laterality Modality Other 09/17/2024 [facility] Scanned SCANNING Final Resu lt * OUTSIDE LAB COVID-19 (08/20/2024) CORONAVIRUS SARS COV 2 PCR (RESP) NOT DETECTED NOT DETECTED [facility] 08/20/2024 [employer] [facility] Scanned SCANNING Final Resu lt [facility] * OUTSIDE PT/INR (SCAN ORDER) (07/22/2024) 07/22/2024 [facility] Scanned SCANNING Final Resu lt * DIABETIC RETINOPATHY EXAM (NEGATIVE) (08/28/2023) [facility] Scanned SCANNING Final Resu lt [facility] * HEMOGLOBIN, GLYCOSYLATED (06/13/2023) HGB A1C 10.5 % [facility] 06/13/2023 us Gerber Betts DO LABORATORY Final Re sult Performing Organization Address City/[facility]/ZIP Co de Phone Number [facility] [address] [place] [address], from Last 3 Months or Most Recently Relevant to Health Maintenance Insurance Care Teams Accounting System Expert Relationship Specialty Start Date End Date Gerber Betts DO [address] [place] [phone] PCP - General FAMILY PRACTICE 06/13/23
--- OUTSIDE RECORDS SUMMARY | 2024-10-06 07:24 | XMS_ITS | Encounter Summary ---
Author Organization [facility] Address [address] [place] [address] Care Team Providers Care Regrinder Name Role Phone Gerber Betts DO Primary [...] Description 10/07/2024 2:00 PM CDT Office Visit [facility] Family & Internal Medicine [address] [phone] Gerber Betts DO [address] [place] [phone] documented as of this encounter Procedures Procedure Name Priority Date/Time Associated Diagnosis Comments IMAGE GENERIC 09/28/2024 documented in this encounter Results * IMAGE GENERIC (09/28/2024) Anatomical Region Laterality Modality Other 09/28/2024 [facility] Scanned SCANNING Final Resu lt documented in this encounter Visit Diagnoses Not on filedocumented in this encounter Care Teams Regrinder Relationship Specialty Start Date End Date Gerber Betts DO [address] [place], [place] [phone] PCP - General FAMILY PRACTICE 06/13/23 documented as of this encounter
--- OUTSIDE RECORDS SUMMARY | 2024-10-06 07:24 | XMS_ITS | Encounter Summary ---
Author Organization [facility] Address [address] [place] [address] Care Team Providers Care Tso Name Role Phone Michael Colorado MD Primary Care Provider [phone] Gerber Betts DO Primary Care Provider + Reason for Visit * Reason Onset Date Comments Parent Return Call 04/25/2016 Mom returned your call from last week. Encounter Details Date Type Department Care Team ([facility] Contact Info) Description 04/25/2016 Telephone [facility] - Endocrinology [address] [place] [phone] Deon Monteiro MD [address] [place] [phone] Parent Return Call (Mom returned your call from last week.) Social History Tobacco Use Types Packs/Day Years Used Date Smoking Tobacco: Never Comments No Sex and Gender Information Value Date Recorded Sex Assigned at Not on file Legal Sex Female 6:36 AM [employer]IFICIAL P[employer]ER Gender Identity Not on file Sexual Orientation Not on file documented as of this encounter Plan of Treatment Upcoming Encounters Date Type Department Care Team ([facility] Contact Info) Description 09/12/2025 2:00 PM CDT Appointment [facility] [address] [place] [phone] documented as of this encounter Visit Diagnoses Not on filedocumented in this encounter Care Teams Tso Relationship Specialty Start Date End Date Michael Colorado MD [address] [place] [address] [address] [place] [address] PCP - General Pediatrics 04/20/16 07/17/24 Gerber Betts DO [address] [place] [phone] PCP - General Family Medicine Geriatric Medicine 07/18/24 documented as of this encounter
[2024-10-06 08:12] LABS: SPREG INTERNAL CONTROL Positive; Serum Qual hCG Negative
[2024-10-07 11:56] LABS: BEDSIDEPREGUCG Negative (Negative)
== END 2024-10-06 08:33 | disposition home or self-care (01) ==
PROVIDERS: Emergency Provider Emergency Medicine; PCP Student in an Organized Health Care Education/Training Program
DX: Z32.02 Encounter for pregnancy test, result negative (principal)
CPT/HCPCS: 36415; 81025; 84703; 99283

== ENCOUNTER 2024-10-31 18:06 | Emergency (ER) | payer OTHER, SELFPAY ==
[2024-10-31 18:21] VITALS: BP 131/74; PULSE 106; RESP 20; TEMP 35.9; O2SAT 100
--- NOTE | 2024-10-31 18:27 | ED_ITS ---
HPI - Recheck/Abnormal Lab/Rx General Chief Complaint: Recheck/Abnormal Lab/Rx <Catie Reed PA-C - Last Filed: 11/01/24 11:12> Stated Complaint: menstrual period 2 days late, pos preg test <EZ Mistry Last Filed: 11/01/24 11:12> Time Seen by Provider: 10/31/24 18:27 <EZ Mistry Last Filed: 11/01/24 11:12> Focused HPI: This is a 24 year old female that presents to the ER for possible . Reports she is two days late for her menstrual cycle. She would like a blood test. GENERAL: Well-appearing, well-nourished, and in no acute distress. HEAD: Normocephalic, atraumatic. CHEST: Clear to auscultation. ?No respiratory distress. HEART: Regular rate and rhythm.? NEURO: ?Alert and oriented x3. Patient screened in triage and initial orders placed.? ?Additional care and disposition to be based upon?diagnostic testing and treatment. <EZ Mistry Last Filed: 11/01/24 11:12> Focused HPI: This is a 24 year old female that presents to the ER for possible . Reports she is two days late for her menstrual cycle. She would like a blood test. GENERAL: Well-appearing, well-nourished, and in no acute distress. HEAD: Normocephalic, atraumatic. CHEST: Clear to auscultation. ?No respiratory distress. HEART: Regular rate and rhythm.? NEURO: ?Alert and oriented x3. Patient screened in triage and initial orders placed.? ?Additional care and disposition to be based upon?diagnostic testing and treatment. <EZ Dinh Last Filed: 10/31/24 23:22> Source: patient <EZ Dinh Last Filed: 10/31/24 23:22> Mode of arrival: ambulatory <EZ Dinh Last Filed: 10/31/24 23:22> Limitations: no limitations <EZ Dinh Last Filed: 10/31/24 23:22> History of Present Illness HPI narrative: Agree with above HPI. Patient states her last normal menstrual cycle was 10/01/24. Was due to start 2 days ago and has not. Has had positive urine test at home. This would make her , hx of [address] Wild Leggett. Denies abd pain/bleeding. <Skye Arroyo PA-C - Last Filed: 10/31/24 23:22> Related Data Home Medications: Home Medications ?Medication ?Instructions ?Recorded ?Confirmed ?Last Taken ?Type aripiprazole 10 mg tablet 10 mg PO DAILY 03/05/23 03/05/23 1 Day Ago History ~03/04/23 clonidine HCl 0.2 mg tablet 0.2 mg PO HS 03/05/23 03/05/23 1 Day Ago History ~03/04/23 dextroamphetamine-amphetamine ER 20 mg PO DAILY 03/05/23 03/05/23 1 Day Ago History 20 mg 24hr capsule,extend release ~03/04/23 gabapentin 100 mg capsule 100 mg PO TID 03/05/23 03/05/23 1 Day Ago History ~03/04/23 insulin detemir U-100 100 unit/mL 10 unit subcut BID 03/05/23 03/06/23 1 Day Ago History (3 mL) subcutaneous pen ~03/04/23 <Catie Reed PA-C - Last Filed: 11/01/24 11:12> Allergies/Adverse Reactions: Allergies Allergy/AdvReac Type Severity Reaction Status Date / Time morphine Allergy Hives Verified 10/31/24 18:10 <Catie Reed PA-C - Last Filed: 11/01/24 11:12> Review of Systems Review of Systems: All systems reviewed & are unremarkable except as noted in HPI. <Skye Arroyo PA-C - Last Filed: 10/31/24 23:22> All systems reviewed & are unremarkable except as noted in HPI and below <EZ Dinh Last Filed: 10/31/24 23:22> PMFSH Past Medical History Medical History: Medical History Chlamydia Treated (approx 2020) Hidradenitis suppurativa of left axilla ADHD (attention deficit hyperactivity disorder) Bipolar disorder Diabetic peripheral neuropathy ROSIE (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) <Catie Reed PA-C - Last Filed: 11/01/24 11:12> Surgical History Surgical History: Surgical History No pertinent past surgical history <Catie Reed PA-C - Last Filed: 11/01/24 11:12> Family History Family History: Family History Father Bipolar disorder Schizophrenia Heart failure Mother Age: 37 Schizophrenia Diabetes mellitus Hypertension Bipolar disorder COPD (chronic obstructive pulmonary disease) Chronic kidney disease <Catie Reed PA-C - Last Filed: 11/01/24 11:12> Social History Social History: Social History Social History: She has been involved with her boyfriend for the last 2 years. She has lived with her boyfriend and his family for the last year. 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 She reports that she drinks 5-6 alcoholic beverages every couple of months. Code status: Full code Smoking status: Never smoker Alcohol intake: current Drinks per week: 3 Substance use: former Substance use type: marijuana Last use: 2019 Lack of Transportation: No Lack of Food: Never True Current Housing: I Have Housing Concerned About Future Housing: No Difficulty Paying Gas/Electric Bills: No Difficulty Paying for Meds: No Currently Unemployed: No Education: High School Diploma/GED Difficulty w/ Childcare or Family Care: No Spiritual care concerns: No <Catie Reed PA-C - Last Filed: 11/01/24 11:12> Exam Narrative: GENERAL: Well appearing, obese with BMI of 32.6, non-toxic, in no acute distress. HEAD: Normocephalic, atraumatic. RESPIRATORY: Airway patent, respirations nonlabored. Clear to auscultation bilaterally, no rales, rhonchi, wheezing. CARDIOVASCULAR: Regular rate and rhythm MUSCULOSKELETAL: Moves all extremities. No gross deformities. SKIN: Warm, dry, normal color. NEURO: A&O X3. Speech clear. PSYCHIATRIC: Appropriate mood and affect. Normal interaction. <Skye Arroyo PA-C - Last Filed: 10/31/24 23:22> Course Vital Signs Vital signs: Vital Signs Temperature 96.7 F L 10/31/24 18:21 Pulse Rate 106 H 10/31/24 18:21 Respiratory Rate 20 10/31/24 18:21 Blood Pressure 131/74 10/31/24 18:21 Pulse Oximetry 100 10/31/24 18:21 Oxygen Delivery Room Air 10/31/24 18:21 Temperature 96.7 F L 10/31/24 18:21 Pulse Rate 106 H 10/31/24 18:21 Respiratory Rate 18 10/31/24 20:01 Blood Pressure 131/74 10/31/24 18:21 Pulse Oximetry 100 10/31/24 20:01 Oxygen Delivery Room Air 10/31/24 18:21 <Catie Reed PA-C - Last Filed: 11/01/24 11:12> Vital Signs Temperature 96.7 F L 10/31/24 18:21 Pulse Rate 106 H 10/31/24 18:21 Respiratory Rate 20 10/31/24 18:21 Blood Pressure 131/74 10/31/24 18:21 Pulse Oximetry 100 10/31/24 18:21 Oxygen Delivery Room Air 10/31/24 18:21 Temperature 96.7 F L 10/31/24 18:21 Pulse Rate 106 H 10/31/24 18:21 Respiratory Rate 18 10/31/24 20:01 Blood Pressure 131/74 10/31/24 18:21 Pulse Oximetry 100 10/31/24 20:01 Oxygen Delivery Room Air 10/31/24 18:21 <EZ Dinh Last Filed: 10/31/24 23:22> MDM - Recheck/Abnormal Lab/Rx MDM Narrative Medical decision making narrative: Patient presented to ED wanting blood test to confirm possible . Has had positive urine test at home. Two days late on her normal menstrual cycle. If positive, this would make patient . Vital signs stable. Beta-hCG resulted positive at 17.02. Patient updated on this. Advised to continue to monitor symptoms, recommended close follow-up with OBGYN. No bleeding or abdominal pain at this time to suggest ectopic. Patient given return precautions. Discharged in stable condition. <Skye Arroyo PA-C - Last Filed: 10/31/24 23:22> Medical Records Attestation: I reviewed the patient's medical records. <Skye Arroyo PA-C - Last Filed: 10/31/24 23:22> Lab Data Attestation: I reviewed the patient's lab results. <Skye Arroyo PA-C - Last Filed: 10/31/24 23:22> Labs: Lab Results 10/31/24 10/31/24 Range/Units 19:51 19:59 Beta HCG, Quant 17.02 mIU/ML Urine Color Yellow (Yellow) Urine Appearance Clear (Clear) Urine pH 5.5 (5.0-9.0) Ur Specific [place] 1.037 H (1.001-1.035) Urine Protein Negative (Negative) mg/dL Urine Glucose (UA) 3+ H (Negative) mg/dL Urine Ketones Trace H (Negative) mg/dL Ur Blood (Man) Negative (Negative) Urine Nitrate Negative (Negative) Urine Bilirubin Negative (Negative) Urine Urobilinogen 0.2 (<2.0) mg/dL Leukocyte Esterase Rfl Negative (Negative) ACRLOS/UL POC Urine HCG, Qual Negative (Negative) <Catie Reed PA-C - Last Filed: 11/01/24 11:12> Lab Results 10/31/24 10/31/24 Range/Units 19:51 19:59 Beta HCG, Quant 17.02 mIU/ML Urine Color Yellow (Yellow) Urine Appearance Clear (Clear) Urine pH 5.5 (5.0-9.0) Ur Specific [place] 1.037 H (1.001-1.035) Urine Protein Negative (Negative) mg/dL Urine Glucose (UA) 3+ H (Negative) mg/dL Urine Ketones Trace H (Negative) mg/dL Ur Blood (Man) Negative (Negative) Urine Nitrate Negative (Negative) Urine Bilirubin Negative (Negative) Urine Urobilinogen 0.2 (<2.0) mg/dL Leukocyte Esterase Rfl Negative (Negative) CARLOS/UL POC Urine HCG, Qual Negative (Negative) <Skye Arroyo PA-C - Last Filed: 10/31/24 23:22> Critical Care Time Critical Care Time Critical Care Time: No <EZ Mistry Last Filed: 11/01/24 11:12> Discharge Plan Discharge Clinical Impression: Positive blood test <EZ Mistry Last Filed: 11/01/24 11:12> Patient Disposition: Home <EZ Mistry Last Filed: 11/01/24 11:12> Condition: Stable <EZ Mistry Last Filed: 11/01/24 11:12> Instructions: Antibiotic Form, (ED) <EZ Mistry Last Filed: 11/01/24 11:12> Additional Instructions: Your beta hCG test today was positive at 17.02. Follow-up with your OBGYN for continued management and care. Call office to make appointment. <EZ Mistry Last Filed: 11/01/24 11:12> Patient Language: Hebrew <EZ Mistry Last Filed: 11/01/24 11:12> Prescriptions: No Action diclofenac sodium 50 mg tablet,delayed release (DR/EC) 50 mg PO TID PRN (Reason: pain) Qty: 30 0RF methocarbamol 750 mg tablet 750 mg PO Q6H PRN (Reason: muscle spasm) Qty: 30 0RF lidocaine 5 % adhesive patch,medicated 1 patch topical DAILY Qty: 15 0RF Rx Instructions: leave on most painful area for up to 12 hrs clindamycin HCl 300 mg capsule 300 mg PO Q6H 7 Days Qty: 28 0RF naproxen 375 mg tablet 375 mg PO BID Qty: 14 0RF cefdinir 300 mg capsule 300 mg PO Q12H 7 Days Qty: 14 0RF clonidine HCl 0.2 mg tablet 0.2 mg PO HS dextroamphetamine-amphetamine 20 mg capsule,extended release 24hr 20 mg PO DAILY gabapentin 100 mg capsule 100 mg PO TID aripiprazole 10 mg tablet 10 mg PO DAILY insulin detemir U-100 100 unit/mL (3 mL) insulin pen 10 unit SUBCUT BID insulin aspart U-100 [Novolog U-100 Insulin aspart] 100 unit/mL Solution 10 unit subcut TIDWM 30 Days Qty: 9 0RF ondansetron 4 mg tablet,disintegrating 4 mg PO Q6H PRN (Reason: nausea and vomiting) Qty: 10 0RF hydrocodone-acetaminophen 5-325 mg tablet 1 tablet PO Q6H PRN (Reason: pain) Qty: 7 0RF doxycycline monohydrate 100 mg capsule 100 mg PO BID Qty: 14 0RF cefdinir 300 mg capsule 300 mg PO Q12H 7 Days Qty: 14 0RF ibuprofen 800 mg tablet 800 mg PO TID PRN (Reason: pain) 7 Days Qty: 21 0RF acetaminophen 500 mg tablet 1,000 mg PO TID PRN (Reason: melania) 7 Days Qty: 42 0RF oxycodone 5 mg tablet 5 mg PO Q4H PRN (Reason: pain) Qty: 7 0RF cephalexin 500 mg capsule 500 mg PO Q6H 7 Days Qty: 28 0RF ondansetron 4 mg tablet,disintegrating 4 mg PO Q8H PRN (Reason: nausea and vomiting) Qty: 15 0RF ibuprofen 800 mg tablet 800 mg PO TID PRN (Reason: pain) 7 Days Qty: 21 0RF acetaminophen 500 mg tablet 1,000 mg PO TID PRN (Reason: melania) 7 Days Qty: 42 0RF methocarbamol 750 mg tablet 1,500 mg PO TID Qty: 42 0RF <Catie Reed PA-C - Last Filed: 11/01/24 11:12> Follow-up/Referrals: Emory Tellez MD [Physician] - (OBGYNDarci Betts,DO Gerber [Primary Care Provider] - <Catie Reed PA-C - Last Filed: 11/01/24 11:12> Time of Disposition: 20:51 <Catie Reed PA-C - Last Filed: 11/01/24 11:12> 20:51 <Skye Arroyo PA-C - Last Filed: 10/31/24 23:22>
[2024-10-31 20:01] VITALS: RESP 18; O2SAT 100
[2024-10-31 20:03] LABS: BEDSIDEPREGUCG Negative (Negative)
[2024-10-31 20:22] LABS: Add Urine Microscopic? NO; Appearance Urine Clear (Clear); Bilirubin Urine Negative (Negative); Blood Urine Negative (Negative); Color Urine Yellow (Yellow); Glucose Urine UA 3+ mg/dL (Negative); Ketones Urine Trace mg/dL (Negative); Leukocyte Esterase Ur Negative LEU/UL (Negative); Nitrate Urine Negative (Negative); Protein Urine Negative (Negative); Specific Grav Ur 1.037 (1.001-1.035); Urobilinogen Urine 0.2 mg/dL (<2.0); pH Urine 5.5 (5.0-9.0)
[2024-10-31 20:40] LABS: Beta HCG Quantitative 17.02 mIU/ML
== END 2024-10-31 20:58 | disposition home or self-care (01) ==
PROVIDERS: Physician Assistant; Emergency Provider Physician Assistant; PCP Student in an Organized Health Care Education/Training Program
DX: Z32.01 Encounter for pregnancy test, result positive (principal); O24.111 Pre-existing type 2 diabetes mellitus, in pregnancy, first trimester; E11.42 Type 2 diabetes mellitus with diabetic polyneuropathy; O99.341 Other mental disorders complicating pregnancy, first trimester; F90.9 Attention-deficit hyperactivity disorder, unspecified type; F31.9 Bipolar disorder, unspecified; Z79.4 Long term (current) use of insulin; Z79.899 Other long term (current) drug therapy; Z3A.01 Less than 8 weeks gestation of pregnancy
CPT/HCPCS: 36415; 81003; 81025; 84702; 99283

== ENCOUNTER 2024-12-05 01:24 | Day surgery (SDC) | payer OTHER, SELFPAY ==
[2024-12-04 11:15] VITALS: BMI 33.2
--- NOTE | 2024-12-04 11:16 | PC.NURSE ---
Report to the Outpatient Waiting Room, entrance under the green pavilion located off [facility], at time _0800_ on date _[id number]_. Planned Procedure Time: _1000_.? Time changes happen often and if your time is changed the preop area will call you the afternoon before. - You and your visitor will be asked to self-screen and do not enter if you have any COVID symptoms. Please call surgeon if you need to reschedule. - A mask is optional within the hospital at this time. Patients may have clear liquids (water, carbonated beverages, clear teas, apple juice) until 3 hours prior to surgery with a maximum of 20 ounces. - No food from midnight until time of surgery and no smoking, or chewing tobacco (or any form of nicotine). No chewing gum, candy or mints. Take only the following medications with a SIP of water on the morning of surgery: ___Aripiprazole, Gabapentin and Amoxicillin____ No insulin morning of surgery. DO NOT STOP ANY OF YOUR OTHER PRESCRIPTION MEDICATIONS PRIOR TO SURGERY EXCEPT THE FOLLOWING Hold all vitamins and supplements for 3 days per anesthesiologist. Medications to discontinue per physician Date to take last dose Please no make-up, nail nepali, hairspray, perfume, deodorant, or body powder the day of surgery.? No jewelry (including any body piercings) or valuables the day of surgery, leave them at home.? Please take a shower or bath the night before, or the morning of, surgery with an antibacterial soap.? Wear comfortable, loose fitting clothing.? - Jewelry must be removed prior to entering the operating room.? Rings and piercings that are not removed may be cut off. - The hospital will not accept responsibility for valuables.? - Please leave all valuables, including medications, at home the day of surgery. If you are going home after surgery, a licensed freight delivery driver must drive you home.? - NO public transportation without another adult if you receive anesthesia. - We recommend that an adult stay with you for 24 hours following discharge. - We also recommend that you do not drive, make important decision, drink alcoholic beverages, or take any drugs that were not prescribed by your health care provider for at least 24 hours after your discharge time. Follow any additional instructions given to you from your surgeon. Telephone instructions given to ___Briana__and asked if any additional questions and then verbalized understanding. Patient advised to call surgeon office or pre surgery nurse liaison [phone] if any additional questions.
--- NOTE | 2024-12-04 17:12 | PM.IMHP ---
H&P: HPI History of Present Illness Date/Time: 12/04/24 17:12 Chief Complaint: Missed A/B Narrative: A 24-year-old many time patient who is admitted for suction D and C this is her 5th miscarriage. She has had a full workup at [facility] and there has been no reason for this she showed no growth after week and half of ultrasound. She opts for suction D& C. Risks and benefits reviewed Review of Systems Review of Systems: All systems reviewed & are unremarkable except as noted in HPI. All systems reviewed & are unremarkable except as noted in HPI and below PMFSH Past Medical History Medical History Chlamydia Treated (approx 2020) Hidradenitis suppurativa of left axilla ADHD (attention deficit hyperactivity disorder) Bipolar disorder Diabetic peripheral neuropathy ROSIE (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) Surgical History Surgical History No pertinent past surgical history Family History Family History Father Bipolar disorder Schizophrenia Heart failure Mother Age: 37 Schizophrenia Diabetes mellitus Hypertension Bipolar disorder COPD (chronic obstructive pulmonary disease) Chronic kidney disease Social History Social History Social History: She has been involved with her boyfriend for the last 2 years. She has lived with her boyfriend and his family for the last year. 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 She reports that she drinks 5-6 alcoholic beverages every couple of months. Code status: Full code Smoking status: Never smoker Alcohol intake: current Drinks per week: 3 Substance use: former Substance use type: marijuana Last use: 2019 Lack of Transportation: No Lack of Food: Never True Current Housing: I Have Housing Concerned About Future Housing: No Difficulty Paying Gas/Electric Bills: No Difficulty Paying for Meds: No Currently Unemployed: No Education: High School Diploma/GED Difficulty w/ Childcare or Family Care: No Living arrangements: with family Spiritual care concerns: No Meds Home Medications and Allergies Home Medications ?Medication ?Instructions ?Recorded ?Confirmed ?Type aripiprazole 10 mg tablet 10 mg PO DAILY 03/05/23 12/04/24 History clonidine HCl 0.2 mg tablet 0.2 mg PO HS 03/05/23 12/04/24 History gabapentin 100 mg capsule 100 mg PO TID 03/05/23 12/04/24 History insulin detemir U-100 100 unit/mL 10 unit subcut BID 03/05/23 12/04/24 History (3 mL) subcutaneous pen ondansetron 4 mg disintegrating 4 mg PO Q8H PRN nausea and 08/20/24 12/04/24 Rx tablet vomiting #15 tabs amoxicillin 500 mg capsule 500 mg PO BID 12/04/24 12/04/24 History Allergies Allergy/AdvReac Type Severity Reaction Status Date / Time morphine Allergy Hives Verified 12/04/24 11:02 Exam Const: General: cooperative, healthy appearing and comfortable Nutritional Appearance: average body habitus Orientation/consciousness: oriented to person, oriented to place and oriented to time HENMT: Head: normal to inspection Resp: Effort & Inspection: normal respiratory effort Cardio: Rate: regular rate Rhythm: regular rhythm Heart sounds: S1 normal heart sound present and S2 normal heart sound present GI: Inspection: normal to inspection : External Female Exam: normal external appearance Speculum Exam - Vagina: normal appearance of the vagina Speculum Exam - Cervix: normal appearance of the cervix Bimanual exam- vagina & uterus: enlarged Bimanual Exam- Adnexa, other: normal adnexae Assessment and Plan Assessment and plan (1) Missed : Code(s): O02.1 - Missed Status: Acute Plan Proceed with suction dilatation curettage
--- OUTSIDE RECORDS SUMMARY | 2024-12-05 01:26 | XMS_ITS | Encounter Summary ---
Author Organization [facility] Address [facility] [place] [address] Care Team Providers Care Engineering Instructor Name Role Phone Gerber Betts DO Primary Care Provider + Reason for Visit * Reason Onset Date Comments Question 11/19/2024 Encounter Details Date Type Department Care Team (Late st Contact Info) Description 11/19/2024 Telephone [facility] Family & Internal Medicine [facility] [address] [place] [address] Gerber Betts DO [address] [place], [place] [phone] Question Social History Tobacco Use Types Packs/Day Years Used Date Smoking Tobacco: Never Passive Smoke Exposure: Never Smokeless Tobacco: Never Alcohol Use Standard Drinks/Week Comments Yes 1 (1 standard drink = 0.6 oz pur e alcohol) Occasional PHQ-2 Answer Date Recorded Patient Health Questionnaire-2 Score 1 10/07/2024 Estimated Date of Delivery Comme nts Yes 07/11/2025 Sex and Gender Information Value Date Recorded Sex Assigned at Female 10/07/2024 2:02 PM CDT Legal Sex Female 2:17 PM CDT Gender Identity Female 10/07/2024 2:02 PM CDT Sexual Orientation Not on file documented as of this encounter Progress Notes * Lulu Chapin MA - 12/04/2024 3:48 PM CDT The patient states her BS have been doing really well. Her BS have been 125-136. The patient did get her dalia but the first one fell off after 2 days and she has not placed the second DNC scheduled tomorrow for another miscarriage. * Gerber Betts DO - 11/19/2024 8:10 AM CDT Please reach out to pt around 12/04/24. I'd like an update on pt's increasing levemir to 20 units and what her blood sugars have been doing. Also was she able to obtain her Dalia? documented in this encounter Plan of Treatment Upcoming Encounters Date Type Department Care Team (Late st Contact Info) Description 01/06/2025 3:00 PM CDT Office Visit [facility] Family & Internal Medicine - [address] [phone] Gerber Betts DO [address] [place] [id number] documented as of this encounter Visit Diagnoses Not on filedocumented in this encounter Care Teams Engineering Instructor Relationship Specialty Start Date End Date Gerber Betts DO [address] [place] [id number] PCP - General FAMILY PRACTICE 06/13/23 documented as of this encounter
--- OUTSIDE RECORDS SUMMARY | 2024-12-05 01:26 | XMS_ITS | Encounter Summary ---
Author Organization [facility] Address [facility] [place] [address] Care Team Providers Care Equipment Validation Specialist Name Role Phone Gerber Betts DO Primary Care Provider + Encounter Details Date Type Department Care Team (Latest Contact Info) Description 11/19/2024 Results Follow-Up [facility] Family & Internal Medicine [address] [phone] Gerber Betts DO [address] [place] [phone] HEMOGLOBIN, GLYCOSYLATED Social History Tobacco Use Types Packs/Day Years [...] Description 01/06/2025 3:00 PM CDT Office Visit [facility] Family & Internal [address] [phone] Gerber Betts DO [address] [place] [address] [place] [phone] documented as of this encounter Visit Diagnoses Not on filedocumented in this encounter Care Teams Equipment Validation Specialist Relationship Specialty Start Date End Date Gerber Betts DO [address] [place] [address] PCP - General FAMILY PRACTICE 06/13/23 documented as of this encounter
--- OUTSIDE RECORDS SUMMARY | 2024-12-05 01:26 | XMS_ITS | Clinical Summary ---
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 Active nystatin (MYCOSTATIN) cream Apply topically 2 (two) times daily. 023 Active EQ PAIN RELIEVER EX ST 500 MG tablet Take 2 tablets (1,000 mg total) by mouth 3 (three) times daily. 025 Active metFORMIN ER (GLUCOPHAGE-XR) 500 MG 24 hr tabletIndication s:Uncontrolled type 2 diabetes mellitus with hyperglycemia ([facility] HHS/[facility]) Take 2 tablets (1,000 mg total) by mouth daily with breakfast. 180 tablet 025 Active Continuous Glucose Cotton Sampler (FREESTYLE KATHERINE 3 READER) DeviceIndication s:Uncontrolled type 2 diabetes mellitus with hyperglycemia ([facility] HHS/HCC) Check blood sugar three times daily and as needed 1 each 025 Active Continuous Glucose Sensor (FREESTYLE KATHERINE 3 SENSOR) MiscIndications: Uncontrolled type 2 diabetes mellitus with hyperglycemia ([facility] HHS/[facility]) Check blood sugar three times daily and as needed 6 each 1 025 Active insulin glargine (LANTUS SOLOSTAR) 100 UNIT/ML injection (PEN) Inject 20 Units into the skin nightly at bedtime. 025 Active gabapentin (NEURONTIN) 300 MG capsuleIndicatio ns:Type 2 diabetes mellitus with polyneuropathy (CMS/HCC HHS/HCC) Take 1 capsule (300 mg total) by mouth 3 (three) times daily as needed (Neuropathy). 90 capsule 2 024 2024 Discontinued(P t. elected to discontinue med) ibuprofen (MOTRIN) 800 MG tablet Take 1 tablet (800 mg total) by mouth 3 (three) times daily. 025 2024 Discontinued(A lternate therapy) methocarbamol (ROBAXIN) 750 MG Tab Take 2 tablets (1,500 mg total) by mouth 3 (three) times daily. 2024 Discontinued(T herapy completed) ondansetron (ZOFRAN-ODT) 4 MG disintegrating tablet DISSOLVE 1 TABLET IN MOUTH EVERY 8 HOURS NEEDED FOR NAUSEA AND VOMITING 2024 Discontinued(A lternate therapy) insulin detemir (LEVEMIR FLEXTOUCH) 100 UNIT/ML PENIndications:U ncontrolled type 2 diabetes mellitus with hyperglycemia (CMS/HCC HHS/HCC) Inject 10 Units into the skin nightly at bedtime. 9 Pen 2024 Discontinued(F ormulary change) ARIPiprazole (ABILIFY) 10 MG tabletIndication s:Bipolar 1 disorder, depressed (CMS/HCC HHS/HCC) Take 1 tablet (10 mg total) by mouth daily. 30 tablet 2 025 2024 Discontinued(A lternate therapy) rosuvastatin (CRESTOR) 5 MG tabletIndication s:Hypercholester olemia Take 1 tablet (5 mg total) by mouth nightly at bedtime. 30 tablet 2 025 2024 Discontinued(A lternate therapy) losartan (COZAAR) 25 MG tabletIndication s:Type 2 diabetes mellitus with polyneuropathy (CMS/HCC HHS/HCC) Take 0.5 tablets (12.5 mg total) by mouth daily. 15 tablet 2 025 2024 Discontinued(A lternate therapy) LANTUS SOLOSTAR 100 UNIT/ML injection (PEN) INJECT 10 UNITS SUBCUTANEOUSLY NIGHTLY AT BEDTIME 025 2024 Discontinued Active Problems Problem Noted Date Diagnosed Date Microalbuminuria due to type 2 diabetes mellitus ([facility]) 11/19/2024 Hidradenitis suppurativa 06/13/2023 Bipolar 1 disorder, depressed ([facility]) 06/13/2020 Urine test positive for microalbuminuria 017 Overview (06/13/2023): Apr 20, 2016 - spot urine microalbumin/creatinine: 36 mg/g (< 30) Jul 19, 2016 ([place], [place]): first morning voided urine microalbumin/creatinine: 23 ug/g (< 30) Last Assessment & Plan: ? Nonspecific vs early diabetic related microalbuminuria 1. Obtain first morning voided urine specimen for microalbumin/creatinine ratio (laboratory requisition given at the time of the office visit). 2. Expectant observation. 3. Return appointment in three months. Type 2 diabetes mellitus wit h polyneuropathy ([facility]) 04/21/2016 Overview (06/13/2023): Apr 15, 2016 - [facility], [address], [place] [address] Na 143 mmol/L, K 4.4 mmol/L, Cl [...] mg/dL (< 130) Jul 19, 2016 - [facility] Cholesterol 151 mg/dL (140-199), [...] associat ed with type 2 diabetes mellitus ([facility]) 2016 Estimated Date of Delivery Comme nts Yes 07/11/2025 Encounters Date Type Department Care Team Description 11/19/2024 7:20 AM CDT Office Visit [address] [address] Brittny Sandhu, Diabetes (1-2 month follow up. ) 11/19/[address] [address] Brittny Sandhu, DO Prior Authorization (Riidr Katherine 3 Tyrone/Sensor) 11/19/2024 Results Follow-Up [address] [address] Brittny Sandhu, HEMOGLOBIN, GLYCOSYLATED 11/19/[address] [address] Brittny Sandhu, Question 11/19/2024 Travel 10/31/2024 Scan [employer] SRVCS Scanned, [facility] (SCAN) 10/07/2024 2:00 PM CDT Office Visit [address] [address] Brittny Sandhu, Diabetes (The patient states her work is requesting a letter stating she is able to drive due to being diabetic. She is also wanting to discuss a CGM ); Knee Injury (The patient states she fell last Monday and went to [facility]. The patient states she is still in pain and was told to f/u in 1 week if not better. ) 10/07/2024 - 10/07/2024 11:59 PM CDT [facility] [place] [address] Brittny Sandhu, DO Discharge Disposition: Home or Self Care (Routine Discharge) 10/07/2024 Results Follow-Up [address] [address] Brittny Sandhu P, DO HEMOGLOBIN, GLYCOSYLATED, URINALYSIS AUTO DIP, TEST URINE, Additional followed-up results: 10 10/07/2024 Travel 10/06/2024 Scan [facility] SR[facility] Scanned, [facility] (SCAN) 09/28/2024 Scan [facility] Scanned, [facility] Image (SCAN) 09/17/2024 Scan [facility] Scanned, [facility] (SCAN); Ultrasound (SCAN); CT (SCAN) from Last 3 Months Immunizations Immunization Administration Dates Next Due Dtap (Acel-Immune) 12/24/2004, 4,10/10/2001,01/2001,2000,2000 FLUCELVAX (ccIIV3, TRIVALENT, 0.5mL) 08/14/2024 Fluzone 6 Months+ Quad (0.5 mL Prefilled Syringe) 06/13/2023 HPV4 (Gardasil) 04/16/2014,02/06/2013,12/03/2012 Hepatitis A 12/24/2004 Hepatitis A (Generic) 12/24/2004 Hepatitis A (Havrix 720 [address].U) 01/14/2004 Hepatitis B Pediatric 01/18/2001,2000,11/1999 Hepatitis B(Engerix B Adult) 08/14/2023 Hib (Generic) 2000,2000,2000 Hib (PedvaxHIB)3 Dose 10/10/2001 Influenza (Generic) 06/14/2012,02/24/2009,2007 Influenza Adult (Generic) 03/21/2019,04/12/2016, 04/16/2014 MENINGOCOCCAL A C Y&W-135 oligosaccharide (MENVEO) 01/17/2019 MMR (MMRII) 10/04/2005, 4,10/27/2001,07/07 Meningcoccal Group B (Bexser o)(aka Meningitis) 01/17/2019 Meningococcal (Menactra) 12/03/2012 PFIZER COVID-19 (12+) MRNA, LNP-S, PF, FIONA-SUCROSE, 30 MCG/0.3 ML (COMIRNATY) 08/14/2024 Pneumococcal (Prevnar 20) 10/07/2024 Pneumococcal (Prevnar 7) 07/30/2001,10/03,2000,06/05 Polio IPV (Ipol) 10/04/2005, 4,10/10/2001,01/2001,2000,2000 Tdap (Adacel) 06/13/2023 Tdap (Generic) 12/03/2012 Varicella (Varivax) 12/26/2006,09/26/2006,2000 Family History Medical History Relation Comments Mental Health Father Arthritis Maternal Grandmother Diabetes Maternal Grandmother Hypertension Maternal Grandmother Depression Mother Mental Health Mother Miscarriages / Stillbirths Mother And m yself Relation Status Comments Father Maternal Grandmother Mother Social History Tobacco Use Types Packs/Day Years Used Date Smoking Tobacco: Never Passive Smoke Exposure: Never Smokeless Tobacco: Never Tobacco Cessation:Counseling Given: Yes Alcohol Use Standard Drinks/Week Comments Yes 1 [...] PM CDT Sexual Orientation Not on file Last Filed Vital Signs Vital Sign Reading Time Taken Comments Blood Pressure 122/82 11/19/2024 7:39 AM CDT Pulse 93 11/19/2024 7:39 AM CDT Temperature 36.3 C (97.4 F) 11/19/2024 7:39 AM CDT Respiratory Rate 16 11/19/2024 7:39 AM CDT Oxygen Saturation 98% 11/19/2024 7:39 AM CDT Inhaled Oxygen Concentration - - Weight 87 kg (191 lb 12.8 oz) 11/19/2024 7:39 AM CDT Height 162.6 cm (5' 4) 11/19/2024 7:39 AM CDT Body Mass Index 32.92 11/19/2024 7:39 AM CDT Plan of Treatment Upcoming Encounters Date Type Department Care Team (Late st Contact Info) Description 01/06/2025 3:00 PM CDT Office Visit [facility] [address] [place] [address] Brittny Sandhu, [address] [place] [address] Health Maintenance Due Date Last Done Comments Annual Physical 2003 Chlamydia Screening Females ages 16-24 2016 Meningococcal B Vaccine (2 of 2 - Bexsero SCDM 2-dose series) 07/20/2019 01/17/2019 Hemoglobin A1C 02/19/2025 11/19/2024, 10/2024, 07/26/2024, Additional history exists RSV Immunization or 60+ Years (1 - Risk 1-dose series) 05/16/2025 Diabetes: Retinopathy Eye Exam 08/27/2025 08/28/2023 Kidney Health Evaluation 10/07/2025 10/07/2024 Lipid Panel 10/07/2025 10/07/2024, 10/2024, 02/02/2017 Cervical Cancer Screening Pap Smear (Age 21 to 29) Every 3 Years 09/07/2027 09/06/2024 Cervical Cancer Screening 09/07/2027 DTaP, Tdap and Td Vaccines (8 - Td or Tdap) 06/13/2033 06/13/2023, 12/03/2012, 12/24/2004, Additional history exists HPV Vaccines Completed 04/16/2014, 09/2012, 12/03/2012 Meningococcal Vaccine Completed 01/17/2019, 013 Hepatitis B Vaccines Completed 08/14/2023, 01/18/2001, 2000, Additional history exists COVID-19 Vaccine Completed 08/14/2024 Hepatitis C Completed 10/07/2024 PHQ-2 (Physician Commerce) Completed 10/07/2024 Pneumococcal Vaccine: Pediatrics (0 to 5 Years) and At-Risk Patients (6 to 49 Years) Completed 10/07/2024, 07/30/2001, 2000, Additional history exists RSV Immunizations Under 20 Months Aged Out No longer eligible based on patient's age to complete this topic Procedures Procedure Name Priority Date/Time Associated Diagnosis Comments COLLECT.CAPILLARY (FNGR,HEEL,EAR) Routine 11/19/2024 7:28 AM CDT Uncontrolled type 2 diabetes mellitus with hyperglycemia ([facility] HHS/HCC) HEMOGLOBIN, GLYCOSYLATED Routine 11/19/2024 Uncontrolled type 2 diabetes mellitus with hyperglycemia ([facility] HHS/HCC) OUTSIDE LAB (SCAN ORDER) 10/31/2024 OUTSIDE LAB (SCAN ORDER) 10/31/2024 OUTSIDE LAB (SCAN ORDER) 10/31/2024 XR KNEE LT 3V Routine 10/07/2024 3:43 PM CDT Acute pain of left knee LIPOPROTEIN, LDL CHOL, DIRECT Routine 10/07/2024 3:25 PM CDT ALBUMIN URINE RANDOM W/CREATININE Routine 10/07/2024 3:25 PM CDT Uncontrolled type 2 diabetes mellitus with hyperglycemia ([facility] HHS/HCC) Annual physical exam Screening for lipid disorders Screening for endocrine, metabolic and immunity disorder CBC W/DIFF AUTOMATED Routine 10/07/2024 3:25 PM CDT Annual physical exam Screening for lipid disorders Screening for endocrine, metabolic and immunity disorder COMPREHENSIVE METABOLIC PANEL Routine 10/07/2024 3:25 PM CDT Annual physical exam Screening for lipid disorders Screening for endocrine, metabolic and immunity disorder TSH W/REFLEX Routine 10/07/2024 3:25 PM CDT Annual physical exam Screening for lipid disorders Screening for endocrine, metabolic and immunity disorder LIPID PANEL Routine 10/07/2024 3:25 PM CDT Annual physical exam Screening for lipid disorders Screening for endocrine, metabolic and immunity disorder HEPATITIS C ANTIBODY Routine 10/07/2024 3:25 PM CDT Need for hepatitis C screening test HCG QUANT (SERUM)-CHORIONIC GONADOTROPIN Routine 10/07/2024 3:25 PM CDT Encounter for test, result unknown URINE BACTERIA CULTURE Routine 10/07/2024 2:57 PM CDT Dysuria COLLECTION VENOUS BLOOD VENIPUNCTURE Routine 10/07/2024 2:48 PM CDT Annual physical exam Screening for lipid disorders Screening for endocrine, metabolic and immunity disorder COLLECT.CAPILLARY (FNGR,HEEL,EAR) Routine 10/07/2024 2:01 PM CDT Uncontrolled type 2 diabetes mellitus with hyperglycemia ([facility]) TEST URINE Routine 10/07/2024 Encounter for test, result unknown URINALYSIS AUTO DIP Routine 10/07/2024 Dysuria HEMOGLOBIN, GLYCOSYLATED Routine 10/07/2024 Uncontrolled type 2 diabetes mellitus with hyperglycemia ([facility]) OUTSIDE LAB (SCAN ORDER) 10/06/2024 OUTSIDE LAB (SCAN ORDER) 10/06/2024 IMAGE GENERIC 09/28/2024 CT GENERIC 09/17/2024 OUTSIDE LAB (SCAN ORDER) 09/17/2024 OUTSIDE LAB (SCAN ORDER) 09/17/2024 OUTSIDE LAB (SCAN ORDER) 09/17/2024 OUTSIDE LAB (SCAN ORDER) 09/17/2024 OUTSIDE LAB (SCAN ORDER) 09/17/2024 OUTSIDE LAB (SCAN ORDER) 09/17/2024 OUTSIDE LAB (SCAN ORDER) 09/17/2024 ULTRASOUND GENERIC (SCAN ORDER) 09/17/2024 DIABETIC RETINOPATHY EXAM (NEGATIVE)(SCAN ORDER) Routine 08/28/2023 from Last 3 Months or Most Recently Relevant to Health Maintenance Results * HEMOGLOBIN, GLYCOSYLATED (11/19/2024) Only the most recent of2 resultswithin the time period is included. HGB A1C 9.9 % -[facility] 11/19/2024 us Brittny Sandhu DO LABORATORY [place] [address], [place] * OUTSIDE LAB (SCAN ORDER) (10/31/2024) Only the most recent of12 resultswithin the time period is included. 10/31/2024 us [facility] Scanned SCANNING Final Resu lt * XR KNEE LT 3V (10/07/2024 3:43 PM CDT) Anatomical Region Laterality Modality Knee Radiographic Felisa ging 10/07/2024 3:49 PM CDT Impressions 10/07/2024 3:49 PM CDT IMPRESSION: No acute findings Ordered By: BRITTNY SANDHU Interpreted By: Percy Crouch MD, 10/07/2024 3:49 PM Narrative 10/07/2024 3:49 PM CDT [facility] [place] [address] 4 VIEWS OF THE LEFT KNEE Clinical History: Pain Comparison: None 4 views of the left knee demonstrate the bony elements to be intact. There is no evidence of fracture or dislocation. The surrounding soft tissues appear normal. Procedure Note Percy Crouch MD - 10/07/2024 [facility] [place] [address] 4 VIEWS OF THE LEFT KNEE Clinical History: Pain Comparison: None 4 views of the left knee demonstrate the bony elements to be intact. Thereis no evidence of fracture or dislocation. The surrounding soft tissuesappear normal. IMPRESSION: No acute findings Ordered By: BRITTNY SANDHU Interpreted By: Percy Crouch MD, 10/07/2024 3:49 PM Brittny Sandhu DO GENERAL IMAGING Final Re sult * TSH W/REFLEX (10/07/2024 3:25 PM CDT) TSH 1.418 0.358 - 3.740 uIU/ML 10/07/2024 7:20 PM CDT [facility] 10/07/2024 3:25 PM CDT Brittny Sandhu DO LABORATORY Final Re sult [facility] [address] [place] [address], [place] [phone] * (ABNORMAL) ALBUMIN URINE RANDOM W/CREATININE (10/07/2024 3:25 PM CDT) MICROALBUMIN (U) 39.1(H) <20 MG/L 10/08/19 7:56 PM CDT [facility] CREATININE RANDOM (U) 72.0 MG/DL 10/07/2024 7:56 PM CDT [facility] ALBUMIN/CREAT RATIO 54.3(H) <30 MG/G 10/07/2024 7:56 PM CDT [facility] URINE SPECIMEN / Unknown 10/07/2024 3:25 PM CDT Brittny Sandhu DO URINE ORDERABLES Final R esult [facility] [address] [place] [address], [place] [phone] * (ABNORMAL) COMPREHENSIVE METABOLIC PANEL (10/07/2024 3:25 PM CDT) Pathologist [facility] SODIUM S/P/B 137 136 - 145 MMOL/L 10/07/2024 7:20 PM CDT [facility] POTASSIUM S/P/B 4.4 3.5 - 5.1 MMOL/L 10/07/2024 7:20 PM CDT -[facility] CHLORIDE S/P/B 98 98 - 107 MMOL/L 10/07/2024 7:20 PM CDT [facility] CO2 29.6 21 - 32 MMOL/L 10/07/2024 7:20 PM T -[facility] GLUCOSE 285(H) 70 - 99 MG/DL 10/07/2024 7:20 PM CDT [facility] BUN 9 7 - 18 MG/DL 10/07/2024 7:20 PM T [facility] CREATININE S/P/B 0.61 0.55 - 1.02 MG/DL 10/07/2024 7:20 PM T [facility] CALCIUM S/P/B 9.7 8.4 - 10.5 MG/DL 10/07/2024 7:20 PM CDT [facility] BILIRUBIN TOTAL S/P/B 0.3 0.2 - 1.0 MG/DL 10/07/2024 7:20 PM CDT [facility] ALKALINE PHOSPHATASE S/P/B 83 37 - 98 U/L 10/07/2024 7:20 PM CDT [facility] AST 21 15 - 37 U/L 10/07/2024 7:20 PM CDT [facility] ALT 48 14 - 59 U/L 10/07/2024 7:20 PM CDT [facility] TOTAL PROTEIN S/P/B 8.5(H) 6.4 - 8.2 G/DL 10/07/2024 7:20 PM CDT [facility] ALBUMIN S/P/B 4.2 3.4 - 5.0 G/DL 10/07/2024 7:20 PM CDT [facility] ANION GAP 9.4 5 - 15 MMOL/L 10/07/2024 7:20 PM CDT [facility] Comment:REFERENCE RANGE NOT ESTABLISHED OSMOLALITY (CALC) 293 MOSM/KG 025 7:20 PM CDT [facility] Comment:REFERENCE RANGE NOT ESTABLISHED GFR ESTIMATE >90 >90 ML/MIN/1. 73 M2 10/07/2024 7:20 PM CDT [facility] GFR NOTES GFR REFERENCE S: 10/07/2024 7:20 PM T [facility] Comment: THE ESTIMATED GFR IS CALCULATED USING THE 2020 CKD-EPI EQUATION. THE FOLLOWING CATEGORIES FOR GRADING RENAL FUNCTION ARE RECOMMENDED BY THE INTERNATIONAL SOCIETY OF NEPHROLOGY (KDIGO 2012 CLINICAL PRACTICE GUIDELINE). G1,NORMAL OR HIGH: >89 ml/min/1.73 m2 G2,MILDLY DECREASED: 60-89 ml/min/1.73 m2 G3A,MILDLY TO MODERATELY DECREASED: 45-59 ml/min/1.73 m2 G3B,MODERATELY TO SEVERELY DECREASED: 30-44 ml/min/1.73 m2 G4,SEVERELY DECREASED: 15-29 ml/min/1.73 m2 G5,KIDNEY FAILURE: <15 ml/min/1.73 m2 10/07/2024 3:25 PM CDT us Brittny Sandhu DO LABORATORY Final Re sult [facility] [address] [place] [address], * (ABNORMAL) LIPID PANEL (10/07/2024 3:25 PM CDT) CHOLESTEROL 259(H) <200 MG/DL 10/07/2024 7:20 PM CDT [facility] TRIGLYCERIDES 402(H) <150 MG/DL 10/07/2024 7:20 PM CDT [facility] HDL 45 >40 MG/DL 10/07/2024 7:20 PM CDT [facility] LDL-C TRIGLYCERIDES >400 MG/DL, SEE DIRECT LDL REPORT <100 MG/DL 10/07/2024 7:20 PM CDT [facility] VLDL CALCULATION UNABLE TO CALCULATE 5 - 28 MG/DL 10/07/2024 7:20 PM CDT [facility] CHOL/HDL RATIO 5.8(H) 0.0 - 4.0 10/07/2024 7:20 PM CDT [facility] LDL/HDL UNABLE TO CALCULATE 0.41 - 2.13 10/07/2024 7:20 PM CDT [facility] NON HDL CHOLESTEROL 214(H) <140 MG/DL 10/07/2024 7:20 PM CDT [facility] 10/07/2024 3:25 PM CDT Brittny Kg Sandhu DO LABORATORY Final Re sult Performing Organization Address City/[facility]/ZIP Co de Phone Number [facility] [address] [place] [address], [place] [phone] * HEPATITIS C ANTIBODY (10/07/2024 3:25 PM CDT) [facility] HEPATITIS C AB NON-REACTI VE NON-REACT ALICJA 10/07/2024 10:04 PM CDT [facility] Comment: ANTIBODIES TO HCV NOT DETECTED. DOES NOT EXCLUDE THE POSSIBILITY OF EXPOSURE TO HCV. 10/07/2024 3:25 PM CDT Brittny P [employer] LABORATORY Final Re sult [facility] [address] [place] [address], [place] [phone] * HCG QUANT (SERUM)-CHORIONIC GONADOTROPIN (10/07/2024 3:25 PM CDT) [facility] HCG QUANTITATIVE <1 MIU/ML 10/08/19 10:41 PM CDT [facility] Comment: <5 IS NEGATIVE 5-25 IS BORDERLINE >25 IS POSITIVE ASSAY PERFORMED BY CHEMILUMINESCENCE METHODOLOGY USING [employer]. PATIENT RESULTS DETERMINED BY ASSAYS USING DIFFERENT MANUFACTURERS FOR METHODS MAY NOT BE COMPARABLE. 10/07/2024 3:25 PM CDT Brittny Sandhu DO LABORATORY Final Re sult Performing Organization Address [facility]/ZIP Co de Phone Number [facility] [address] [place] [address], [place] [phone] * LIPOPROTEIN, LDL CHOL, DIRECT (10/07/2024 3:25 PM CDT) DIRECT LDL 142 MG/DL 10/07/2024 9:26 PM CDT [facility] Comment:130-159 BORDERLINE H IGH 10/07/2024 3:25 PM CDT Brittny Sandhu DO LABORATORY Final Re sult Performing Organization Address [facility] de Phone Number [facility] [address] [place] [address], [place] [phone] * (ABNORMAL) CBC W/DIFF AUTOMATED (10/07/2024 3:25 PM CDT) WBC 8.69 4.00 - 10.80 x10'3/uL 10/07/2024 7:13 PM CDT [facility] RBC 5.51(H) 4.10 - 5.40 x10'6/uL 10/07/2024 7:13 PM CDT [facility] HGB 13.7 12.0 - 16.0 G/DL 10/07/2024 7:13 PM CDT [facility] HCT 42.7 36.0 - 47.0 % 10/07/2024 7:13 PM CDT [facility] MCV 77.5(L) 78.0 - 100.0 FL 10/07/2024 7:13 PM CDT [facility] MCH 24.9(L) 27.0 - 31.0 PG 10/07/2024 7:13 PM CDT [facility] MCHC 32.1(L) 33.0 - 36.0 G/DL 10/07/2024 7:13 PM CDT [facility] RDW 12.8 11.5 - 14.5 % 10/07/2024 7:13 PM CDT [facility] PLT 346 150 - 350 x10'3/uL 10/07/2024 7:13 PM CDT [facility] MPV 11.8(H) 7.4 - 10.4 FL 10/07/2024 7:13 PM CDT [facility] DIFFERENTIAL TYPE AUTOMATED DIFFERENTIAL 10/07/2024 7:13 PM CDT [facility] NEUTROPHILS % 61.5 % 10/07/2024 7:13 PM CDT [facility] LYMPHOCYTES % 30.1 % 10/07/2024 7:13 PM CDT [facility] MONOCYTES % 5.9 % 10/07/2024 7:13 PM CDT [facility] EOSINOPHILS % 2.3 % 10/07/2024 7:13 PM CDT [facility] BASOPHILS % 0.2 % 10/07/2024 7:13 PM CDT [facility] IMMATURE GRANS % 0.0 % 10/07/2024 7:13 PM CDT [facility] ABS. NEUTROPHILS 5.34 1.60 - 8.30 x10'3/uL 10/07/2024 7:13 PM CDT [facility] ABS. LYMPHOCYTES 2.62 0.80 - 4.70 x10'3/uL 10/07/2024 7:13 PM CDT [facility] ABS. MONOCYTES 0.51 0.00 - 1.50 x10'3/uL 10/07/2024 7:13 PM CDT [facility] ABS. EOSINOPHILS 0.20 0.00 - 0.40 x10'3/uL 10/07/2024 7:13 PM CDT [facility] ABS. BASOPHILS 0.02 0.00 - 0.20 x10'3/uL 10/07/2024 7:13 PM CDT [facility] ABS. IMMATURE GRANULOCYTES 0.00 0.00 - 0.03 x10'3/uL 10/07/2024 7:13 PM CDT [facility] 10/07/2024 3:25 PM CDT Brittny Sandhu DO LABORATORY Final Re sult Performing Organization Address City/[facility]/ZIP Co de Phone Number [facility] [address] [place] [address], [place] [phone] * URINE BACTERIA CULTURE (10/07/2024 2:57 PM CDT) SPEC DESCRIPTION URINE CLEAN CATCH 10/08/2024 2:23 PM CDT [facility] SPECIAL REQUESTS NO SPECIAL REQUEST 10/08/2024 2:23 PM CDT [facility] CULTURE RESULT FEW CONTAMINANTS 01/2025 1:10 PM CDT [facility] URINE SPECIMEN OBTAINED BY CLEAN CATCH PROCEDURE / Unknown 10/07/2024 2:57 PM CDT 10/08/2024 5:32 PM CDT us Brittny Sandhu DO MICROBIOLOGY - GENERAL O RDERABLES Final Result [facility] [address] [place] [address], [place] [phone] [id number] * TEST URINE (10/07/2024) URINE HCG TEST NEGATIVE NEGATIVE [facility] Internal Control: VALID VALID [facility] URINE SPECIMEN FROM URETHRA / Unknown 10/07/2024 Brittny Kg Sandhu DO URINE ORDERABLES Final R esult Performing Organization Address [facility] [place] [address], [place] * (ABNORMAL) URINALYSIS AUTO DIP (10/07/2024) COLOR (U) YELLOW YELLOW [facility] TRANSPARENCY CLOUDY(A) CLEAR [facility] GLUCOSE (U) 500 mg/dl(A) NEGATIVE MG/DL [facility] BILIRUBIN (U) NEGATIVE NEGATIVE [facility] KETONES MG/DL (U) NEGATIVE NEGATIVE MG/DL [facility] SPECIFIC GRAVITY (U) 1.020 1.001 - 1.035 [facility] BLOOD (U) TRACE (Non Hemolyzed, Intact)(A) NEGATIVE [facility] U PH 5.5 5.0 - 9.0 [facility] PROTEIN (U) NEGATIVE NEGATIVE mg/dL [facility] UROBILINOGEN 0.2 0.2 - 1.0 EU/dL = mg/dL [facility] NITRITES NEGATIVE NEGATIVE MG/DL [facility] LEUKOCYTES (U) NEGATIVE NEGATIVE [facility] URINE SPECIMEN OBTAINED BY CLEAN CATCH PROCEDURE / Unknown 10/07/2024 us Brittny Sandhu DO URINE ORDERABLES Final R esult Performing Organization Address [facility]/[place] [address], [place] * IMAGE GENERIC (09/28/2024) Anatomical Region Laterality Modality Other 09/28/2024 [facility] Scanned SCANNING Final Resu lt * CT GENERIC (09/17/2024) Anatomical Region Laterality Modality Other 09/17/2024 [facility] Scanned SCANNING Final Resu lt * ULTRASOUND GENERIC (SCAN ORDER) (09/17/2024) Anatomical Region Laterality Modality Other 09/17/2024 [facility] Scanned SCANNING Final Resu lt * DIABETIC RETINOPATHY EXAM (NEGATIVE) (08/28/2023) [facility] Scanned SCANNING Final Resu lt [facility] ON[facility] from Last 3 Months or Most Recently Relevant to Health Maintenance Insurance Care 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
--- NOTE | 2024-12-05 06:29 | WPDHPUPDATE1 ---
History and Physical Update Update Date/Time: 12/05/24 06:29 History and Physical has been reviewed, including an updated exam of the patient. There are NO changes in the patient's condition. Risks, benefits, and alternatives have been discussed and questions answered. Patient agrees to proceed with procedure.
[2024-12-05] MEDS: ACETAMINOPHEN 500 MG TABLET 1000 MG PO (08:30)
[2024-12-05 08:42] LABS: Hematocrit 40.5 % (37.0-47.0); Hemoglobin 13.0 g/dL (12.0-15.0)
[2024-12-05 08:52] LABS: INR 1.0; Prothrombin Time 13.4 Seconds (11.1-14.7)
[2024-12-05 08:53] LABS: Partial Thromboplastin Time 27.7 Seconds (22.3-36.8)
[2024-12-05 08:55] LABS: Anion Gap 11 mmol/L (4-12); Blood Urea Nitrogen 10 mg/dL (7-17); Calcium 9.2 mg/dL (8.4-10.2); Carbon Dioxide 24 mmol/L (22-30); Chloride 101 mmol/L (98-107); Estimated CRCL calculation 189 ml/min; Estimated Glomerular Filt Rate > 60; Glucose 166 mg/dL (65-110); Potassium 4.2 mmol/L (3.4-5.0); Sodium 136 mmol/L (137-145)
[2024-12-05 09:07] VITALS: BP 128/75; PULSE 94; RESP 18; TEMP 36.4; O2SAT 100
--- NOTE | 2024-12-05 09:14 | WPDANESEPPF ---
Anes - Initial Pre Proc Eval Procedure: Operation Date: 12/05/24 10:00 Proposed Procedures p Suction Dilatation and Curettage - Emory Leggett MD Date/Time: 12/05/24 09:14 Surgeon: Emory Leggett MD Pre Op Diagnosis: missed AB Patient Data Age: 24 Gender: F Height: 1.63 m Weight: 87.7 kg Last Vital Signs Temp 36.4 C 12/05/24 09:07 Pulse 94 12/05/24 09:07 Resp 18 12/05/24 09:07 BP 128/75 12/05/24 09:07 Pulse Ox 100 12/05/24 09:07 O2 Del Method Room Air 12/05/24 09:07 Allergies Allergy/AdvReac Type Severity Reaction Status Date / Time morphine Allergy Hives Verified 12/05/24 08:58 Home Medications ?Medication ?Instructions ?Recorded ?Confirmed ?Type aripiprazole 10 mg tablet 10 mg PO DAILY 03/05/23 12/05/24 History clonidine HCl 0.2 mg tablet 0.2 mg PO HS 03/05/23 12/05/24 History gabapentin 100 mg capsule 100 mg PO TID 03/05/23 12/05/24 History insulin detemir U-100 100 unit/mL 10 unit subcut BID 03/05/23 12/04/24 History (3 mL) subcutaneous pen ondansetron 4 mg disintegrating 4 mg PO Q8H PRN nausea and 08/20/24 12/04/24 Rx tablet vomiting #15 tabs amoxicillin 500 mg capsule 500 mg PO BID 12/04/24 12/05/24 History hydrocodone 5 mg-acetaminophen 325 1 tablet PO Q4H PRN pain #14 tabs 12/05/24 Rx mg tablet Laboratory Tests 12/05/24 12/05/24 08:24 08:35 Hgb 13.0 g/dL (12.0-15.0) Hct 40.5 % (37.0-47.0) PT 13.4 Seconds (11.1-14.7) INR 1.0 APTT 27.7 Seconds (22.3-36.8) Sodium 136 L mmol/L (137-145) Potassium 4.2 mmol/L (3.4-5.0) Chloride 101 mmol/L (98-107) Carbon Dioxide 24 mmol/L (22-30) Anion Gap 11 mmol/L (4-12) BUN 10 mg/dL (7-17) Creatinine 0.40 L mg/dL (0.7-1.0) Estim Creat Clear Calc 189 ml/min Estimated GFR > 60 (59 - ) Glucose 166 H mg/dL (65-110) POC Capillary Glucose 165 H mg/dl (65-105) Calcium 9.2 mg/dL (8.4-10.2) Patient hx anesthesia problems: none Family hx anesthesia problems: none Results Review: All pre-operative results and documents have been reviewed as part of the pre-operative evaluation. [facility] Past Medical History Medical History Chlamydia Treated (approx 2020) Hidradenitis suppurativa of left axilla ADHD (attention deficit hyperactivity disorder) Bipolar disorder Diabetic peripheral neuropathy ROSIE (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) Surgical History Surgical History No pertinent past surgical history Family History Family History Father Bipolar disorder Schizophrenia Heart failure Mother Age: 37 Schizophrenia Diabetes mellitus Hypertension Bipolar disorder COPD (chronic obstructive pulmonary disease) Chronic kidney disease Social History Social History Social History: She has been involved with her boyfriend for the last 2 years. She has lived with her boyfriend and his family for the last year. 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 She reports that she drinks 5-6 alcoholic beverages every couple of months. Code status: Full code Smoking status: Never smoker Alcohol intake: current Drinks per week: 3 Substance use: former Substance use type: marijuana Last use: 2019 Lack of Transportation: No Lack of Food: Never True Current Housing: I Have Housing Concerned About Future Housing: No Difficulty Paying Gas/Electric Bills: No Difficulty Paying for Meds: No Currently Unemployed: No Education: High School Diploma/GED Difficulty w/ Childcare or Family Care: No Living arrangements: with family Spiritual care concerns: No Anes - Eval Final PreProcedure Day of Procedure 12/05/24 09:14 Patient weight: obese Heart: regular rate and rhythm Lungs: clear to auscultation Airway: Mallampati scale class II Neurological: alert and oriented Last oral intake: >/= 8 hours ASA classification: III Emergent: no Anesthetic plan: proceed Anesthesia type and monitoring: general GIVS and standard monitoring Results Review: All pre-operative results and documents have been reviewed as part of the pre-operative evaluation. Informed Consent: The patient's anesthetic plan and its attendant risks and benefits were discussed with the patient/family/POA. Questions were solicited and answers provided to the satisfaction of the patient/family/POA.
[2024-12-05] MEDS: LIDOCAINE 1% LOCAL INJ 10 ML VIAL INFILTRATE (09:39)
--- NOTE | 2024-12-05 09:52 | S_PTH ---
PATIENT: Lori Landeros LOC: [facility] U#:[id number] AGE/SX: 24/F ROOM: RE12/05/[address]: Emory Leggett MD : [id number] BED: DIS: 12/05/2024 SPEC #: [id number] RECD: 12/05/24 10:33 STATUS: WM REHeather #: [id number] RIO: 12/05/24 09:[address]: Emory Tellez DEPT: [facility] Surgical RECD BY: Vaishali Garcia ENTERED: 12/05/24 10:33 SP TYPE: Surgical OTHR DR: Gerber Betts, DO Tissues: A - Uterine Contents Procedures: Hematoxylin and Eosin Stain Gross and Microscopic Level 4
[2024-12-05 10:00] VITALS: BP 134/88; PULSE 101; RESP 20; O2SAT 94
[2024-12-05] MEDS: LACTATED RINGERS 1,000 ML 30 ML IV CONT (10:00)
--- NOTE | 2024-12-05 10:01 | W.PM.PROC2 ---
Procedure Note - Detailed Date of Procedure 12/05/24 Pre-op Diagnosis missed AB Post-op Diagnosis Same Procedure Performed Suction dilatation curettage Surgeon Emory Leggett MD Anesthesia MAC and Local Indications This is a 24-year-old female with missed A/B in the 1st trimester this is her 5th miscarriage Findings Uterus sounded to 10cm. Tissue consistent with products of conception were present Description of Procedure Patient was prepped and draped in the normal sterile fashion placed in the dorsal lithotomy position. Under excellent IV sedation weighted speculum placed in posterior fornix vagina. Anterior lip of cervix grasped with a single-tooth tenaculum. 2.5cc 1% xylocaine anesthesia placed at 2, 4, 8, 10:00 a.m. of the cervix. Uterus sounded to 10cm. Serial dilatation with fragmented dilators performed followed by passage of the 10. Suction curette this was passed several times and a good grating sound was heard. The instruments withdrawn the patient went recovery in satisfactory condition. All sponge, needle, instrument counts were correct. There were no immediate complications. The tissue was sent for chromosomal analysis and no RhoGAM was needed as she is Rh positive Estimated Blood Loss 25 Drains No Packing No Pathology Yes Complications No immediate complications Condition Stable Disposition PACU
[2024-12-05 10:30] VITALS: BP 117/92; PULSE 98; RESP 20; O2SAT 97
[2024-12-05] MEDS: oxyCODONE HCL (*CRX) 5 MG TAB IR PO (10:55)
[2024-12-05 11:00] VITALS: BP 133/86; PULSE 83; RESP 18
[2024-12-05 11:30] VITALS: BP 128/79; PULSE 84; RESP 16
--- NOTE | 2024-12-05 11:55 | SUR.PHASEII ---
Patient dressed and waiting for ride. Vitals stable. IV removed.
== END 2024-12-05 12:40 | disposition home or self-care (01) ==
PROVIDERS: Anesthesiology; PCP Student in an Organized Health Care Education/Training Program; Visit Provider Obstetrics & Gynecology
PROC: (CPT 59820; principal; 2024-12-05 10:00)
DX: O02.1 Missed abortion (principal); E11.40 Type 2 diabetes mellitus with diabetic neuropathy, unspecified; Z79.4 Long term (current) use of insulin
CPT/HCPCS: 59820; 36415; 80048; 82948; 85014; 85018; 85610; 85730; 88305; A9270; J2003; J2250; J2704; J3010; J7120

== ENCOUNTER 2024-12-11 15:45 | Emergency (ER) | payer OTHER, SELFPAY ==
--- NOTE | ~2024-12-11 | US_ITS ---
US pelvic complete Ordering provider: Giana Darnell PA-C History: . suprapubic abd pain, vaginal bleeding, recent D C . Comparison: None. Technique: Transabdominal and endovaginal ultrasound of the pelvis (Doppler ultrasound interrogation techniques used as needed for this exam.) FINDINGS: CERVIX: Normal. UTERUS: Measures 8.2x 4.8x 5 cm in length which is within normal limits and is anteverted. No myomet rial masses. ENDOMETRIUM: Complex vascular endometrium is noted. CUL DE SAC: No free fluid. RIGHT OVARY: Normal in size measuring 3.4x 1.5 x 1.9 cm. Normal echotexture. Doppler vascular flow pr esent. LEFT OVARY: Not visualized. ADNEXA: Normal. No mass. IMPRESSION: Complex vascular endometrium. Further evaluation and follow-up advised. Otherwise, normal pelvic ultrasound. Reviewed, dictated and finalized at location A.
--- OUTSIDE RECORDS SUMMARY | 2024-12-11 15:48 | XMS_ITS | Encounter Summary ---
Author Organization [facility] Address [facility] [place] [address] Care Team Providers Care Meat Hanger Name Role Phone Gerber Betts DO Primary Care Provider + Encounter Details Date Type Department Care Team (Latest Contact Info) Description 11/19/2024 Results Follow-Up [facility] Family & Internal Medicine [address] [phone] Gerber Betts DO [address] [place] [address] [id number] HEMOGLOBIN, GLYCOSYLATED Social History Tobacco Use Types [...] Description 01/06/2025 3:00 PM CDT Office Visit [facility] Family & Internal [address] [phone] Gerber Betts DO [address] [place] [address] [place] [address] documented as of this encounter Visit Diagnoses Not on filedocumented in this encounter Care Teams Meat Hanger Relationship Specialty Start Date End Date Gerber Betts DO [address] [place] [address] PCP - General FAMILY PRACTICE 06/13/23 documented as of this encounter
--- OUTSIDE RECORDS SUMMARY | 2024-12-11 15:48 | XMS_ITS | Clinical Summary ---
Author Organization [facility] Address [address] [place] [address] Care Team Providers Care Paediatric Surgeon Name Role Phone JoshsteveBrittny arnold Kg LOGAN [...] s:Uncontrolled type 2 diabetes mellitus with hyperglycemia ([facility] HHS/[facility]) Take 2 tablets (1,000 mg total) by mouth daily with breakfast. 180 tablet 025 Active Continuous Glucose Fruit Cutter (FREESTYLE KATHERINE 3 READER) DeviceIndication s:Uncontrolled type 2 diabetes mellitus with hyperglycemia ([facility] HHS/HCC) Check blood sugar three times daily and as needed 1 each 025 Active Continuous Glucose Sensor (FREESTYLE KATHERINE 3 SENSOR) MiscIndications: Uncontrolled type 2 diabetes mellitus with hyperglycemia ([facility]) Check blood sugar three times daily [...] Microalbuminuria due to type 2 diabetes mellitus ([facility]) 11/19/2024 Hidradenitis suppurativa 06/13/2023 Bipolar 1 disorder, depressed ([facility]) 06/13/2020 Urine test positive for microalbuminuria 017 Overview (06/13/2023): Apr 20, 2016 - spot urine microalbumin/creatinine: 36 mg/g (< 30) Jul 19, 2016 ([place], [place]): first morning voided urine microalbumin/creatinine: 23 ug/g (< 30) Last Assessment & Plan: ? Nonspecific vs early diabetic related microalbuminuria 1. Obtain first morning voided urine specimen for microalbumin/creatinine ratio (laboratory requisition given at the time of the office visit). 2. Expectant observation. 3. Return appointment in three months. Type 2 diabetes mellitus wit h polyneuropathy ([facility]) 04/21/2016 Overview (06/13/2023): Apr 15, 2016 - [facility], [address] [place], [place] [address] Na 143 mmol/L, K 4.4 mmol/L, Cl [...] mg/dL (< 130) Jul 19, 2016 - [facility] Cholesterol 151 mg/dL (140-199), triglycerides [...] with type 2 diabetes mellitus ([facility]) 2016 Estimated Date of Delivery Comme nts Yes 07/11/2025 Encounters Date Type Department Care Team Description 11/19/2024 7:20 AM CDT Office Visit [address] [address] Brittny Sandhu, Diabetes (1-2 month follow up. ) 11/19/[address] [address] Brittny Sandhu, DO Prior Authorization ([employer] Katherine [employer]/Sensor) 11/19/2024 Results Follow-Up [address] [address] Brittny Sandhu, HEMOGLOBIN, GLYCOSYLATED 11/19/[address] [address] Brittny Sandhu, Question 11/19/2024 Travel 10/31/2024 Scan [employer] [facility] Scanned, [facility] (SCAN) 10/07/2024 2:00 PM CDT Office Visit [address] [address] Brittny Sandhu, Diabetes (The patient states her work is requesting a letter stating she is able to drive due to being diabetic. She is also wanting to discuss a CGM ); Knee Injury (The patient states she fell last Monday and went [facility]. The patient states she is still in pain and was told to f/u in 1 week if not better. ) 10/07/2024 - 10/07/2024 11:59 PM CDT Hospital Encounter [facility] [place] [address] Brittny Sandhu, DO Discharge Disposition: Home or Self Care (Routine Discharge) 10/07/2024 Results Follow-Up [address] [phone] Brittny Sandhu P, DO HEMOGLOBIN, GLYCOSYLATED, URINALYSIS [...] Description 01/06/2025 3:00 PM CDT Office Visit [facility] [id number] [place] [address] Brittny Sandhu, [address] [place] [address] Health Maintenance Due Date Last Done Comments [...] 08/14/2024 Hepatitis C Completed 10/07/2024 PHQ-2 (Physician [place]) Completed 10/07/2024 Pneumococcal Vaccine: Pediatrics (0 to 5 Years) and At-Risk Patients (6 to 49 Years) Completed 10/07/2024, 07/30/2001, 2000, Additional history exists RSV Immunizations Under 20 Months Aged Out No longer eligible based on patient's age to complete this topic Procedures Procedure Name Priority Date/Time Associated Diagnosis Comments COLLECT.CAPILLARY (FNGR,HEEL,EAR) Routine 11/19/2024 7:28 AM CDT Uncontrolled type 2 diabetes mellitus with hyperglycemia ([facility] H[facility]/HCC) HEMOGLOBIN, GLYCOSYLATED Routine 11/19/2024 Uncontrolled type 2 diabetes mellitus with hyperglycemia ([facility]/HCC) OUTSIDE LAB (SCAN ORDER) 10/31/2024 OUTSIDE LAB (SCAN ORDER) 10/31/2024 OUTSIDE LAB (SCAN ORDER) 10/31/2024 XR KNEE LT 3V Routine 10/07/2024 3:43 PM CDT Acute pain of left knee LIPOPROTEIN, LDL CHOL, DIRECT Routine 10/07/2024 3:25 PM CDT ALBUMIN URINE RANDOM W/CREATININE Routine 10/07/2024 3:25 PM CDT Uncontrolled type 2 diabetes mellitus with hyperglycemia ([facility] H[facility]/HCC) Annual physical exam Screening for [...] Uncontrolled type 2 diabetes mellitus with hyperglycemia ([facility]) TEST URINE Routine 10/07/2024 Encounter for test, result unknown URINALYSIS AUTO DIP Routine 10/07/2024 Dysuria HEMOGLOBIN, GLYCOSYLATED Routine 10/07/2024 Uncontrolled type 2 diabetes mellitus with hyperglycemia ([facility]) OUTSIDE LAB (SCAN ORDER) 10/06/2024 OUTSIDE [...] period is included. HGB A1C 9.9 % -[facility] [place] 11/19/2024 us Brittny Sandhu DO LABORATORY [place] [address], [place] * OUTSIDE LAB (SCAN ORDER) (10/31/2024) [...] 3:49 PM Narrative 10/07/2024 3:49 PM CDT [facility] Family [place] [address] 4 VIEWS OF THE LEFT KNEE Clinical History: Pain Comparison: None 4 views of the left knee demonstrate the bony elements to be intact. There is no evidence of fracture or dislocation. The surrounding soft tissues appear normal. Procedure Note Percy Crouch MD - 10/07/2024 [facility] [place] [address] 4 VIEWS OF THE LEFT KNEE Clinical [...] - 3.740 uIU/ML 10/07/2024 7:20 PM CDT [facility] 10/07/2024 3:25 PM CDT Brittny Sandhu DO LABORATORY Final Re sult [facility] [address] [place] [address], [place] [phone] * (ABNORMAL) ALBUMIN URINE RANDOM W/CREATININE (10/07/2024 3:25 PM CDT) MICROALBUMIN (U) 39.1(H) <20 MG/L 10/08/19 7:56 PM CDT [facility] CREATININE RANDOM (U) 72.0 MG/DL 10/07/2024 7:56 PM CDT [facility] ALBUMIN/CREAT RATIO 54.3(H) <30 MG/G 10/07/2024 7:56 PM CDT [facility] URINE SPECIMEN / Unknown 10/07/2024 3:25 PM CDT Brittny Sandhu DO URINE ORDERABLES Final R esult [facility] [address] [place] [address], [place] [phone] * (ABNORMAL) COMPREHENSIVE METABOLIC PANEL (10/07/2024 3:25 PM CDT) Pathologist [facility] SODIUM S/P/B 137 136 - 145 MMOL/L 10/07/2024 7:20 PM CDT [facility] POTASSIUM S/P/B 4.4 3.5 - 5.1 MMOL/L 10/07/2024 7:20 PM CDT -[facility] CHLORIDE S/P/B 98 98 - 107 MMOL/L 10/07/2024 7:20 PM CDT [facility] CO2 29.6 21 - 32 MMOL/L 10/07/2024 7:20 PM T -[facility] GLUCOSE 285(H) 70 - 99 MG/DL 10/07/2024 7:20 PM CDT [facility] BUN 9 7 - 18 MG/DL 10/07/2024 7:20 PM T [facility] CREATININE S/P/B 0.61 0.55 - 1.02 MG/DL 10/07/2024 7:20 PM T [facility] CALCIUM S/P/B 9.7 8.4 - 10.5 MG/DL 10/07/2024 7:20 PM CDT [facility] BILIRUBIN TOTAL S/P/B 0.3 0.2 - 1.0 MG/DL 10/07/2024 7:20 PM CDT [facility] ALKALINE PHOSPHATASE S/P/B 83 37 - 98 U/L 10/07/2024 7:20 PM [facility] AST 21 15 - 37 U/L 10/07/2024 7:20 PM CDT [facility] ALT 48 14 - 59 U/L 10/07/2024 7:20 PM CDT [facility] TOTAL PROTEIN S/P/B 8.5(H) 6.4 - 8.2 G/DL 10/07/2024 7:20 PM CDT [facility] ALBUMIN S/P/B 4.2 3.4 - 5.0 G/DL 10/07/2024 7:20 PM CDT [facility] ANION GAP 9.4 5 - 15 MMOL/L 10/07/2024 7:20 PM CDT [facility] Comment:REFERENCE RANGE NOT ESTABLISHED OSMOLALITY (CALC) 293 MOSM/KG 025 7:20 PM CDT [facility] Comment:REFERENCE RANGE NOT ESTABLISHED GFR ESTIMATE >90 >90 ML/MIN/1. 73 M2 10/07/2024 7:20 PM CDT [facility] GFR NOTES GFR REFERENCE S: 10/07/2024 7:20 PM T [facility] Comment: THE ESTIMATED GFR IS CALCULATED USING [...] Brittny Sandhu DO LABORATORY Final Re sult [facility] [address] [place] [address], * (ABNORMAL) LIPID PANEL (10/07/2024 3:25 PM CDT) CHOLESTEROL 259(H) <200 MG/DL 10/07/2024 7:20 PM CDT [facility] TRIGLYCERIDES 402(H) <150 MG/DL 10/07/2024 7:20 PM CDT [facility] HDL 45 >40 MG/DL 10/07/2024 7:20 PM CDT [facility] LDL-C TRIGLYCERIDES >400 MG/DL, SEE DIRECT LDL REPORT <100 MG/DL 10/07/2024 7:20 PM CDT [facility] VLDL CALCULATION UNABLE TO CALCULATE 5 - 28 MG/DL 10/07/2024 7:20 PM CDT [facility] CHOL/HDL RATIO 5.8(H) 0.0 - 4.0 10/07/2024 7:20 PM CDT [facility] LDL/HDL UNABLE TO CALCULATE 0.41 - 2.13 10/07/2024 7:20 PM CDT [facility] NON HDL CHOLESTEROL 214(H) <140 MG/DL 10/07/2024 7:20 PM CDT [facility] 10/07/2024 3:25 PM CDT Brittny Kg Sandhu DO LABORATORY Final Re sult Performing Organization Address City/[facility]/ZIP Co de Phone Number [facility] [address] [place] [address], [place] [phone] * HEPATITIS C ANTIBODY (10/07/2024 3:25 PM CDT) [facility] HEPATITIS C AB NON-REACTI VE NON-REACT ALICJA 10/07/2024 10:04 PM CDT [facility] Comment: ANTIBODIES TO HCV NOT DETECTED. DOES NOT EXCLUDE THE POSSIBILITY OF EXPOSURE TO HCV. 10/07/2024 3:25 PM CDT Brittny P [employer] LABORATORY Final Re sult [facility] [address] [place] [address], [place] [phone] * HCG QUANT (SERUM)-CHORIONIC GONADOTROPIN (10/07/2024 3:25 PM CDT) [facility] HCG QUANTITATIVE <1 MIU/ML 10/08/19 10:41 PM CDT [facility] Comment: <5 IS NEGATIVE 5-25 IS BORDERLINE >25 IS POSITIVE ASSAY PERFORMED BY CHEMILUMINESCENCE METHODOLOGY USING [employer]. PATIENT RESULTS DETERMINED BY ASSAYS USING DIFFERENT MANUFACTURERS FOR METHODS MAY NOT BE COMPARABLE. 10/07/2024 3:25 PM CDT Brittyn Sandhu DO LABORATORY Final Re sult Performing Organization Address [facility]/ZIP Co de Phone Number [facility] [address] [place] [address], [place] [phone] * LIPOPROTEIN, LDL CHOL, DIRECT (10/07/2024 3:25 PM CDT) DIRECT LDL 142 MG/DL 10/07/2024 9:26 PM CDT [facility] Comment:130-159 BORDERLINE H IGH 10/07/2024 3:25 PM CDT Brittny Sandhu DO LABORATORY Final Re sult Performing Organization Address [facility] de Phone Number [facility] [address] [place] [address], [place] [phone] * (ABNORMAL) CBC W/DIFF AUTOMATED (10/07/2024 3:25 PM CDT) WBC 8.69 4.00 - 10.80 x10'3/uL 10/07/2024 7:13 PM CDT [facility] RBC 5.51(H) 4.10 - 5.40 x10'6/uL 10/07/2024 7:13 PM CDT [facility] HGB 13.7 12.0 - 16.0 G/DL 10/07/2024 7:13 PM CDT [facility] HCT 42.7 36.0 - 47.0 % 10/07/2024 7:13 PM CDT [facility] MCV 77.5(L) 78.0 - 100.0 FL 10/07/2024 7:13 PM CDT [facility] MCH 24.9(L) 27.0 - 31.0 PG 10/07/2024 7:13 PM CDT [facility] MCHC 32.1(L) 33.0 - 36.0 G/DL 10/07/2024 7:13 PM CDT [facility] RDW 12.8 11.5 - 14.5 % 10/07/2024 7:13 PM CDT [facility] PLT 346 150 - 350 x10'3/uL 10/07/2024 7:13 PM CDT [facility] MPV 11.8(H) 7.4 - 10.4 FL 10/07/2024 7:13 PM CDT [facility] DIFFERENTIAL TYPE AUTOMATED DIFFERENTIAL 10/07/2024 7:13 PM CDT [facility] NEUTROPHILS % 61.5 % 10/07/2024 7:13 PM CDT [facility] LYMPHOCYTES % 30.1 % 10/07/2024 7:13 PM CDT [facility] MONOCYTES % 5.9 % 10/07/2024 7:13 PM CDT [facility] EOSINOPHILS % 2.3 % 10/07/2024 7:13 PM CDT [facility] BASOPHILS % 0.2 % 10/07/2024 7:13 PM CDT [facility] IMMATURE GRANS % 0.0 % 10/07/2024 7:13 PM CDT [facility] ABS. NEUTROPHILS 5.34 1.60 - 8.30 x10'3/uL 10/07/2024 7:13 PM CDT [facility] ABS. LYMPHOCYTES 2.62 0.80 - 4.70 x10'3/uL 10/07/2024 7:13 PM CDT [facility] ABS. MONOCYTES 0.51 0.00 - 1.50 x10'3/uL 10/07/2024 7:13 PM CDT [facility] ABS. EOSINOPHILS 0.20 0.00 - 0.40 x10'3/uL 10/07/2024 7:13 PM CDT [facility] ABS. BASOPHILS 0.02 0.00 - 0.20 x10'3/uL 10/07/2024 7:13 PM CDT [facility] ABS. IMMATURE GRANULOCYTES 0.00 0.00 - 0.03 x10'3/uL 10/07/2024 7:13 PM CDT [facility] 10/07/2024 3:25 PM CDT Brittny Sandhu DO LABORATORY Final Re sult Performing Organization Address City/[facility]/ZIP Co de Phone Number [facility] [address] [place] [address], [place] [phone] * URINE BACTERIA CULTURE (10/07/2024 2:57 PM CDT) SPEC DESCRIPTION URINE CLEAN CATCH 10/08/2024 2:23 PM CDT [facility] SPECIAL REQUESTS NO SPECIAL REQUEST 10/08/2024 2:23 PM CDT [facility] CULTURE RESULT FEW CONTAMINANTS 01/2025 1:10 PM CDT [facility] URINE SPECIMEN OBTAINED BY CLEAN CATCH PROCEDURE / Unknown 10/07/2024 2:57 PM CDT 10/08/2024 5:32 PM CDT us Brittny Sandhu DO MICROBIOLOGY - GENERAL O RDERABLES Final Result [facility] [address] [place] [address], [place] [phone] * TEST URINE (10/07/2024) URINE HCG TEST NEGATIVE NEGATIVE [facility] Internal Control: VALID VALID [facility] URINE SPECIMEN FROM URETHRA / Unknown 10/07/2024 Brittny Kg Sandhu DO URINE ORDERABLES Final R esult Performing Organization Address [facility] [place] [address], [place] * (ABNORMAL) URINALYSIS AUTO DIP (10/07/2024) COLOR (U) YELLOW YELLOW [facility] TRANSPARENCY CLOUDY(A) CLEAR [facility] GLUCOSE (U) 500 mg/dl(A) NEGATIVE MG/DL [facility] BILIRUBIN (U) NEGATIVE NEGATIVE [facility] KETONES MG/DL (U) NEGATIVE NEGATIVE MG/DL [facility] SPECIFIC GRAVITY (U) 1.020 1.001 - 1.035 [facility] BLOOD (U) TRACE (Non Hemolyzed, Intact)(A) NEGATIVE [facility] U PH 5.5 5.0 - 9.0 [facility] PROTEIN (U) NEGATIVE NEGATIVE mg/dL [facility] UROBILINOGEN 0.2 0.2 - 1.0 EU/dL = mg/dL [facility] NITRITES NEGATIVE NEGATIVE MG/DL [facility] LEUKOCYTES (U) NEGATIVE NEGATIVE [facility] URINE SPECIMEN OBTAINED BY CLEAN CATCH PROCEDURE / Unknown 10/07/2024 us Brittny Sandhu DO URINE ORDERABLES Final R esult Performing Organization Address [facility]/ZIP [place] [address], [place] * IMAGE GENERIC (09/28/2024) Anatomical Region [...] Med Group Scanned SCANNING Final Resu lt [facility] ONBASE from Last 3 Months or Most Recently Relevant to Health Maintenance Insurance Care Teams Paediatric Surgeon Relationship Specialty Start Date End Date Brittny Sandhu DO [address] [place] [id number] PCP - General FAMILY PRACTICE 06/13/23
[2024-12-11 15:52] VITALS: BP 145/89; PULSE 107; RESP 16; TEMP 36.7; O2SAT 98
--- NOTE | 2024-12-11 18:00 | ED_ITS ---
HPI - Female Genitourinary General Chief complaint: Vaginal Bleeding <Giana Darnell PA-C - Last Filed: 12/11/24 18:09> Stated complaint: heavy vaginal bleeding after D&C on 12/05 <Giana Darnell PA-C - Last Filed: 12/11/24 18:09> Time Seen by Provider: 12/11/24 18:13 <Giana Darnell PA-C - Last Filed: 12/11/24 18:09> Focused HPI: 24-year-old female presents emergency department for suprapubic abdominal pain and vaginal bleeding. Patient states her LMP was October 02 through October 04. She was approximately 6 weeks when she went in for a checkup on December 04 and was told there was no growth of her fetus. She then had a D&C performed on 12/05. She states since the procedure she has had vaginal bleeding. Today she noticed increase in vaginal bleeding is passing half dollar sized clots. She states she is wearing a depends and changing it 3 times per day. She is reporting suprapubic abdominal pain and lower back pain today which concerned her and prompted her to come to the ED. She is also endorsing nausea and vomiting the low-grade fever of 99.2. She denies vaginal discharge, concern for STDs, dysuria, prior abdominal surgeries. She is not anticoagulated. She states after vomiting today she became lightheaded and saw ?stars?. GENERAL: Well-appearing, well-nourished, and in no acute distress. HEAD: Normocephalic, atraumatic. CHEST: Clear to auscultation. ?No respiratory distress. ABD: Normoactive bowel sounds. Abdomen soft with tenderness to the suprapubic region. No rebound or rigidity. HEART: Regular rate and rhythm.? NEURO: ?Alert and oriented x3. Patient screened in triage and initial orders placed.? ?Additional care and disposition to be based upon?diagnostic testing and treatment. <Giana Darnell PA-C - Last Filed: 12/11/24 18:09> Focused HPI: 24-year-old female presents emergency department for suprapubic abdominal pain and vaginal bleeding. Patient states her LMP was October 02 through October 04. She was approximately 6 weeks when she went in for a checkup on December 04 and was told there was no growth of her fetus. She then had a D&C performed on 12/05. She states since the procedure she has had vaginal bleeding. Today she noticed increase in vaginal bleeding is passing half dollar sized clots. She states she is wearing a depends and changing it 3 times per day. She is reporting suprapubic abdominal pain and lower back pain today which concerned her and prompted her to come to the ED. She is also endorsing nausea and vomiting the low-grade fever of 99.2. She denies vaginal discharge, concern for STDs, dysuria, prior abdominal surgeries. She is not anticoagulated. She states after vomiting today she became lightheaded and saw ?stars?. GENERAL: Well-appearing, well-nourished, and in no acute distress. HEAD: Normocephalic, atraumatic. CHEST: Clear to auscultation. ?No respiratory distress. ABD: Normoactive bowel sounds. Abdomen soft with tenderness to the suprapubic region. No rebound or rigidity. HEART: Regular rate and rhythm.? NEURO: ?Alert and oriented x3. Patient screened in triage and initial orders placed.? ?Additional care and disposition to be based upon?diagnostic testing and treatment. <Skye Arroyo PA-C - Last Filed: 12/11/24 21:25> Source: patient <Skye Arroyo PA-C - Last Filed: 12/11/24 21:25> Mode of arrival: ambulatory <Skye Arroyo PA-C - Last Filed: 12/11/24 21:25> Limitations: no limitations <Skye Arroyo PA-C - Last Filed: 12/11/24 21:25> History of Present Illness HPI Narrative: Agree with above HPI. Procedure was performed by Dr. Wlid Leggett <Skye Arroyo PA-C - Last Filed: 12/11/24 21:25> Related Data Home medications: Home Medications ?Medication ?Instructions ?Recorded ?Confirmed ?Last Taken ?Type aripiprazole 10 mg tablet 10 mg PO DAILY 03/05/23 12/05/24 12/04/24 History clonidine HCl 0.2 mg tablet 0.2 mg PO HS 03/05/23 12/05/2412/04/25 History gabapentin 100 mg capsule 100 mg PO TID 03/05/23 12/05/24 12/04/24 History insulin detemir U-100 100 unit/mL 10 unit subcut BID 03/05/23 12/04/24 1 Day Ago History (3 mL) subcutaneous pen ~03/04/23 amoxicillin 500 mg capsule 500 mg PO BID 12/04/24 12/05/24 12/04/24 History <Giana Darnell PA-C - Last Filed: 12/11/24 18:09> Allergies/Adverse reactions: Allergies Allergy/AdvReac Type Severity Reaction Status Date / Time morphine Allergy Hives Verified 12/11/24 18:38 <Giana Darnell PA-C - Last Filed: 12/11/24 18:09> Review of Systems 2 Review of Systems: All systems reviewed & are unremarkable except as noted in HPI. <Skye Arroyo PA-C - Last Filed: 12/11/24 21:25> All systems reviewed & are unremarkable except as noted in HPI and below < Skye Arroyo PA-C - Last Filed: 12/11/24 21:25> [facility] Past Medical History Medical History: Medical History Chlamydia Treated (approx 2020) Hidradenitis suppurativa of left axilla ADHD (attention deficit hyperactivity disorder) Bipolar disorder Diabetic peripheral neuropathy ROSIE (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) <Giana Darnell PA-C - Last Filed: 12/11/24 18:09> Surgical History Surgical History: Surgical History No pertinent past surgical history <Giana Darnell PA-C - Last Filed: 12/11/24 18:09> Family History Family History: Family History Father Bipolar disorder Schizophrenia Heart failure Mother Age: 37 Schizophrenia Diabetes mellitus Hypertension Bipolar disorder COPD (chronic obstructive pulmonary disease) Chronic kidney disease <Giana Darnell PA-C - Last Filed: 12/11/24 18:09> Social History Social History: Social History Social History: She has been involved with her boyfriend for the last 2 years. She has lived with her boyfriend and his family for the last year. 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 She reports that she drinks 5-6 alcoholic beverages every couple of months. Code status: Full code Smoking status: Never smoker Alcohol intake: current Drinks per week: 3 Substance use: former Substance use type: marijuana Last use: 2019 Lack of Transportation: No Lack of Food: Never True Current Housing: I Have Housing Concerned About Future Housing: No Difficulty Paying Gas/Electric Bills: No Difficulty Paying for Meds: No Currently Unemployed: No Education: High School Diploma/GED Difficulty w/ Childcare or Family Care: No Living arrangements: with family Spiritual care concerns: No <Giana Darnell PA-C - Last Filed: 12/11/24 18:09> Exam 2 Narrative: GENERAL: Mildly uncomfortable appearing, obese with BMI of 33.2, non-toxic, in no acute distress. HEAD: Normocephalic, atraumatic. RESPIRATORY: Airway patent, respirations nonlabored. Clear to auscultation bilaterally, no rales, rhonchi, wheezing. CARDIOVASCULAR: Regular rate and rhythm without murmurs, rubs, or gallops. ABDOMINAL: Soft, diffuse tenderness throughout lower abdomen, no rebound, nondistended. Normoactive BS. MUSCULOSKELETAL: Moves all extremities. No gross deformities. SKIN: Warm, dry, normal color. NEURO: A&O X3. Speech clear. No ataxic movements. PSYCHIATRIC: Appropriate mood and affect. Normal interaction. <Skye Arroyo PA-C - Last Filed: 12/11/24 21:25> Course Vital Signs Vital signs: Vital Signs Temperature 98.1 F 12/11/24 15:52 Pulse Rate 107 H 12/11/24 15:52 Respiratory Rate 16 12/11/24 15:52 Blood Pressure 145/89 H 12/11/24 15:52 Pulse Oximetry 98 12/11/24 15:52 Temperature 98.1 F 12/11/24 19:55 Pulse Rate 96 12/11/24 19:55 Respiratory Rate 13 12/11/24 19:55 Blood Pressure 119/78 12/11/24 19:55 Pulse Oximetry 100 12/11/24 19:55 Oxygen Delivery Room Air 12/11/24 18:28 <Giana Darnell PA-C - Last Filed: 12/11/24 18:09> Vital Signs Temperature 98.1 F 12/11/24 15:52 Pulse Rate 107 H 12/11/24 15:52 Respiratory Rate 16 12/11/24 15:52 Blood Pressure 145/89 H 12/11/24 15:52 Pulse Oximetry 98 12/11/24 15:52 Temperature 98.1 F 12/11/24 19:55 Pulse Rate 96 12/11/24 19:55 Respiratory Rate 13 12/11/24 19:55 Blood Pressure 119/78 12/11/24 19:55 Pulse Oximetry 100 12/11/24 19:55 Oxygen Delivery Room Air 12/11/24 18:28 <Skye Arroyo PA-C - Last Filed: 12/11/24 21:25> MDM - Female Genitourinary MDM Narrative Medical decision making narrative: Patient presented to ED with persistent vaginal bleeding status post D & C on 12/05 related to miscarriage. Vital signs stable upon arrival. Patient mildly tachycardic, but appears uncomfortable. Cbc with blood cell count of 11.9. H&H is stable. Consistent with previous records. CMP fairly unremarkable. Blood glucose is elevated 205. Again fairly consistent with previous records. UA with blood, no signs of infection. Pelvic ultrasound was obtained and showing complex vascular endometrium. Concerning for retained POC. Discussed performing pelvic exam, however patient very hesitant, does not feel as though she will be able to tolerate this. Will defer at this time. Discussed case with Dr. Pyle OBGYMonalisa on-call for Dr. Wild Leggett, recommended Cytotec 1000mg buccal now, can d/c home with close OP f/u and repeat beta HCG in 48 hours. Discussed these recommendations with patient. She is in agreement with plan. Feels comfortable going home. Advised to contact Dr. Wild Leggett's office first thing in the morning for f/u appt. Outpatient lab order placed for repeat beta-hCG on Monday. Patient given return precautions. She voiced understanding. Discharged in stable condition. <Skye Arroyo PA-C - Last Filed: 12/11/24 21:25> Medical Records Attestation: I reviewed the patient's medical records. <Skye Arroyo PA-C - Last Filed: 12/11/24 21:25> Lab Data Attestation: I reviewed the patient's lab results. <Skye Arroyo PA-C - Last Filed: 12/11/24 21:25> Result diagrams: 12/11/24 19:00 12/11/24 19:00 <Giana Darnell PA-C - Last Filed: 12/11/24 18:09> Labs: Lab Results 12/11/24 12/11/24 12/11/24 Range/Units 19:00 19:46 20:23 WBC 11.9 H (4.5-10.0) K/mm3 RBC 5.00 (4.2-5.4) M/mm3 Hgb 12.6 (12.0-15.0) g/dL Hct 38.7 (37.0-47.0) % MCV 77.4 L (80-100) fl MCH 25.2 L (26-34) pg MCHC 32.6 (32-36) g/dl RDW 14.1 (11.5-14.5) % Plt Count 291 (150-375) k/mm3 MPV 10.8 H (7.4-10.4) fl Immature Gran % (Auto) 0.3 (0-0.5) % Neut % (Auto) 71.1 (45.5-73.1) % Lymph % (Auto) 21.4 (18.3-44.2) % Lea % (Auto) 5.2 (2.6-8.5) % Eos % (Auto) 1.6 (0-4.4) % Baso % (Auto) 0.4 (0.2-1.2) % Lymph # (Auto) 2.55 (0.9-3.2) K/mm3 Lea # (Auto) 0.6 (0.1-0.6) K/mm3 Eos # (Auto) 0.2 (0-0.3) K/mm3 Baso # (Auto) 0.1 (0.0-0.1) K/mm3 Abs Immat Gran (auto) 0.04 H (0.00-0.031) K/mm3 Absolute Neuts (auto) 8.4 H (1.3-6.7) K/mm3 Absolute Nucleated RBC 0.000 (0.0-0.012) K/mm3 Nucleated RBC % 0.0 (0.0-0.2) % PT 13.3 (11.1-14.7) Seconds INR 1.0 APTT 25.3 (22.3-36.8) Seconds Sodium 137 (137-145) mmol/L Potassium 4.0 (3.4-5.0) mmol/L Chloride 102 (98-107) mmol/L Carbon Dioxide 23 (22-30) mmol/L Anion Gap 12 (4-12) mmol/L BUN 16 (7-17) mg/dL Creatinine 0.49 L (0.7-1.0) mg/dL Estim Creat Clear Calc 158 ml/min Estimated GFR > 60 (59 - ) Glucose 205 H (65-110) mg/dL Calcium 9.3 (8.4-10.2) mg/dL Total Bilirubin 0.5 (0.2-1.3) mg/dL AST 30 (14-36) U/L ALT 29 (6-35) U/L Alkaline Phosphatase 54 (38-126) U/L Total Protein 8.0 (6.3-8.2) g/dL Albumin 4.4 (3.5-5.1) g/dL Beta HCG, Quant 322.08 mIU/ML Urine Color Yellow (Yellow) Urine Appearance Clear (Clear) Urine pH 6.5 (5.0-9.0) Ur Specific [place] 1.034 (1.001-1.035) Urine Protein 1+ H (Negative) mg/dL Urine Glucose (UA) Trace H (Negative) mg/dL Urine Ketones 1+ H (Negative) mg/dL Ur Blood (Man) 3+ H (Negative) Urine Nitrate Negative (Negative) Urine Bilirubin Negative (Negative) Urine Urobilinogen 1.0 (<2.0) mg/dL Leukocyte Esterase Rfl Trace H (Negative) CARLOS/UL Urine RBC >100 H (0-2) /hpf Urine WBC 0-5 (0-3) /hpf Ur Squamous Epith Cells Occasional (Few) /hpf Urine Bacteria None seen /hpf Urine Casts 0-2 POC Urine HCG, Qual Negative (Negative) <Giana Darnell PA-C - Last Filed: 12/11/24 18:09> Lab Results 12/11/24 12/11/24 12/11/24 Range/Units 19:00 19:46 20:23 WBC 11.9 H (4.5-10.0) K/mm3 RBC 5.00 (4.2-5.4) M/mm3 Hgb 12.6 (12.0-15.0) g/dL Hct 38.7 (37.0-47.0) % MCV 77.4 L (80-100) fl MCH 25.2 L (26-34) pg MCHC 32.6 (32-36) g/dl RDW 14.1 (11.5-14.5) % Plt Count 291 (150-375) k/mm3 MPV 10.8 H (7.4-10.4) fl Immature Gran % (Auto) 0.3 (0-0.5) % Neut % (Auto) 71.1 (45.5-73.1) % Lymph % (Auto) 21.4 (18.3-44.2) % Lea % (Auto) 5.2 (2.6-8.5) % Eos % (Auto) 1.6 (0-4.4) % Baso % (Auto) 0.4 (0.2-1.2) % Lymph # (Auto) 2.55 (0.9-3.2) K/mm3 Lea # (Auto) 0.6 (0.1-0.6) K/mm3 Eos # (Auto) 0.2 (0-0.3) K/mm3 Baso # (Auto) 0.1 (0.0-0.1) K/mm3 Abs Immat Gran (auto) 0.04 H (0.00-0.031) K/mm3 Absolute Neuts (auto) 8.4 H (1.3-6.7) K/mm3 Absolute Nucleated RBC 0.000 (0.0-0.012) K/mm3 Nucleated RBC % 0.0 (0.0-0.2) % PT 13.3 (11.1-14.7) Seconds INR 1.0 APTT 25.3 (22.3-36.8) Seconds Sodium 137 (137-145) mmol/L Potassium 4.0 (3.4-5.0) mmol/L Chloride 102 (98-107) mmol/L Carbon Dioxide 23 (22-30) mmol/L Anion Gap 12 (4-12) mmol/L BUN 16 (7-17) mg/dL Creatinine 0.49 L (0.7-1.0) mg/dL Estim Creat Clear Calc 158 ml/min Estimated GFR > 60 (59 - ) Glucose 205 H (65-110) mg/dL Calcium 9.3 (8.4-10.2) mg/dL Total Bilirubin 0.5 (0.2-1.3) mg/dL AST 30 (14-36) U/L ALT 29 (6-35) U/L Alkaline Phosphatase 54 (38-126) U/L Total Protein 8.0 (6.3-8.2) g/dL Albumin 4.4 (3.5-5.1) g/dL Beta HCG, Quant 322.08 mIU/ML Urine Color Yellow (Yellow) Urine Appearance Clear (Clear) Urine pH 6.5 (5.0-9.0) Ur Specific [place] 1.034 (1.001-1.035) Urine Protein 1+ H (Negative) mg/dL Urine Glucose (UA) Trace H (Negative) mg/dL Urine Ketones 1+ H (Negative) mg/dL Ur Blood (Man) 3+ H (Negative) Urine Nitrate Negative (Negative) Urine Bilirubin Negative (Negative) Urine Urobilinogen 1.0 (<2.0) mg/dL Leukocyte Esterase Rfl Trace H (Negative) CARLOS/UL Urine RBC >100 H (0-2) /hpf Urine WBC 0-5 (0-3) /hpf Ur Squamous Epith Cells Occasional (Few) /hpf Urine Bacteria None seen /hpf Urine Casts 0-2 POC Urine HCG, Qual Negative (Negative) <Skye Arroyo PA-C - Last Filed: 12/11/24 21:25> Imaging Data Attestation: I personally reviewed and interpreted this imaging study as follows: < CESAR DinhC - Last Filed: 12/11/24 21:25> Radiologist's impression: ITS Impressions Pelvis Ultrasound 12/11/24 18:50 IMPRESSION: Complex vascular endometrium. Further evaluation and follow-up advised. Otherwise, normal pelvic ultrasound. <EZ Dinh Last Filed: 12/11/24 21:25> Discharge Plan Discharge Clinical Impression: Dysfunctional uterine bleeding, Retained products of conception <EZ Ladd Last Filed: 12/11/24 18:09> Patient Disposition: Home <EZ Ladd Last Filed: 12/11/24 18:09> Condition: Stable <EZ Ladd Last Filed: 12/11/24 18:09> Instructions: Antibiotic Form, Miscarriage (ED), Abnormal (Dysfunctional) Uterine Bleeding (ED) <EZ Ladd Last Filed: 12/11/24 18:09> Additional Instructions: You may experience increased cramping with the medication given here in the ER today. Continue Tylenol/ibuprofen around the clock as needed for pain. You can take 600 mg of ibuprofen and 1000mg of Tylenol every 6 hours. You will need to have your beta hCG ( hormone) repeated in 48 hours (on 12/13/24). Take lab order sheet with you to outpatient lab. Call Dr. Wild Leggett's office tomorrow to make follow up appointment for further evaluation. Return to the ED if you experience worsening or severe pain/bleeding, feeling faint or lightheaded, unable to keep down food or drink, or any other symptoms of concern. <EZ Ladd Last Filed: 12/11/24 18:09> Patient Language: Italian <EZ Ladd Last Filed: 12/11/24 18:09> Prescriptions: No Action amoxicillin 500 mg capsule 500 mg PO BID Rx Instructions: With food. hydrocodone-acetaminophen 5-325 mg tablet 1 tablet PO Q4H PRN (Reason: pain) Qty: 14 0RF clonidine HCl 0.2 mg tablet 0.2 mg PO HS gabapentin 100 mg capsule 100 mg PO TID aripiprazole 10 mg tablet 10 mg PO DAILY insulin detemir U-100 100 unit/mL (3 mL) insulin pen 10 unit SUBCUT BID ondansetron 4 mg tablet,disintegrating 4 mg PO Q8H PRN (Reason: nausea and vomiting) Qty: 15 0RF <Giana Darnell PA-C - Last Filed: 12/11/24 18:09> Other Ambulatory Orders: Beta HCG Quantitative (Routine) Timeframe: 20241213 Location: Determined by Patient Ordered By: Skye Arroyo <Giana Darnell PA-C - Last Filed: 12/11/24 18:09> Follow-up/Referrals: Emory Tellez MD [Physician] - (OBGYNDarci Betts,DO Gerber [Primary Care Provider] - <Giana Darnell PA-C - Last Filed: 12/11/24 18:09> Stand Alone Forms: Work/School Release IP <Giana Darnell PA-C - Last Filed: 12/11/24 18:09> Time of Disposition: 20:17 <Giana Darnell PA-C - Last Filed: 12/11/24 18:09> 20:17 <Skye Arroyo PA-C - Last Filed: 12/11/24 21:25>
--- NOTE | 2024-12-11 18:09 | ECG_ITS ---
Test Date: 2024-12-11 18:46:16 Measurements Intervals [place] Rate: 106 P: 41 RI: 147 QRS: 38 QRSD: 82 T: 39 QT: 358 QTc: 475 Interpretive Statements SINUS TACHYCARDIA ABNORMAL RHYTHM ECG No previous ECG available for comparison Electronically Signed On 12-12-2024 11:45:53 CDT by Milo Martínez M.D.
[2024-12-11 18:19] VITALS: BP 126/86; PULSE 110; RESP 20; TEMP 36.6; O2SAT 97
[2024-12-11 18:28] VITALS: BP 126/86; PULSE 105; RESP 14; O2SAT 100
--- NOTE | 2024-12-11 18:28 | PC.NURSE ---
US at bedside
--- NOTE | 2024-12-11 18:38 | PC.NURSE ---
Pt states unable to urinate at this time. States once IVF are in she will be able to try.
[2024-12-11] MEDS: SODIUM CHLORIDE 0.9% IV 1,000 ML 999 ML IV CONT (18:40)
[2024-12-11 19:06] LABS: Hematocrit 38.7 % (37.0-47.0); Hemoglobin 12.6 g/dL (12.0-15.0); Immature Granulocyte Percent A 0.3 % (0-0.5); Lymphocytes Absolute Auto 2.55 K/mm3 (0.9-3.2); Mean Corpuscular HGB Conc 32.6 g/dl (32-36); Mean Corpuscular Hemoglobin 25.2 pg (26-34); Mean Corpuscular Volume 77.4 fl (80-100); Nucleated Red Blood Cells Absolute Auto 0.000 K/mm3 (0.0-0.012); Nucleated Red Blood Cells Perc 0.0 % (0.0-0.2); Platelet Count Result 291 k/mm3 (150-375); Red Blood Count 5.00 M/mm3 (4.2-5.4); White Blood Count 11.9 K/mm3 (4.5-10.0)
--- OUTSIDE RECORDS SUMMARY | 2024-12-11 19:10 | XMS_ITS | Encounter Summary ---
Author Organization [facility] Address [facility] [place] [address] Care Team Providers Care Athletic Equipment Manager Name Role Phone Gerber Betts DO Primary Care Provider + Encounter Details Date Type Department Care Team (Latest Contact Info) Description 11/19/2024 Results Follow-Up [facility] [address] [id number] Gerber Betts DO [address] [place] [address] [id number] HEMOGLOBIN, GLYCOSYLATED Social History Tobacco Use Types [...] Description 01/06/2025 3:00 PM CDT Office Visit [facility] [address] [phone] Gerber Betts DO [address] [place] [address] [place] [address] documented as of this encounter Visit Diagnoses Not on filedocumented in this encounter Care Teams Athletic Equipment Manager Relationship Specialty Start Date End Date Gerber Betts DO [address] [place] [address] PCP - General FAMILY PRACTICE 06/13/23 documented as of this encounter
--- OUTSIDE RECORDS SUMMARY | 2024-12-11 19:10 | XMS_ITS | Clinical Summary ---
Author Organization [facility] Address [address] [place] [address] Care Team Providers Care Urban Forester Name Role Phone JoshsteveBrittny arnold Kg LOGAN [...] s:Uncontrolled type 2 diabetes mellitus with hyperglycemia ([facility]) Take 2 tablets (1,000 mg total) by mouth daily with breakfast. 180 tablet 025 Active Continuous Glucose Quill Cleaning Machine Operator (FREESTYLE KATHERINE 3 READER) DeviceIndication s:Uncontrolled type 2 diabetes mellitus with hyperglycemia ([facility] HHS/HCC) Check blood sugar three times daily and as needed 1 each 025 Active Continuous Glucose Sensor (FREESTYLE KATHERINE 3 SENSOR) MiscIndications: Uncontrolled type 2 diabetes mellitus with hyperglycemia ([facility]) Check blood sugar three times daily and [...] Microalbuminuria due to type 2 diabetes mellitus ([facility]) 11/19/2024 Hidradenitis suppurativa 06/13/2023 Bipolar 1 disorder, depressed ([facility]) 06/13/2020 Urine test positive for microalbuminuria 017 Overview (06/13/2023): Apr 20, 2016 - spot urine microalbumin/creatinine: 36 mg/g (< 30) Jul 19, 2016 ([place], [place]): first morning voided urine microalbumin/creatinine: 23 ug/g (< 30) Last Assessment & Plan: ? Nonspecific vs early diabetic related microalbuminuria 1. Obtain first morning voided urine specimen for microalbumin/creatinine ratio (laboratory requisition given at the time of the office visit). 2. Expectant observation. 3. Return appointment in three months. Type 2 diabetes mellitus wit h polyneuropathy ([facility]) 04/21/2016 Overview (06/13/2023): Apr 15, 2016 - [facility], [address], [place] [address] Na 143 mmol/L, K 4.4 mmol/L, Cl [...] mg/dL (< 130) Jul 19, 2016 - [facility] Cholesterol 151 mg/dL (140-199), triglycerides 235 mg/dL [...] associat ed with type 2 diabetes mellitus ([facility]) 2016 Estimated Date of Delivery Comme nts Yes 07/11/2025 Encounters Date Type Department Care Team Description 11/19/2024 7:20 AM CDT Office Visit [address] [address] Brittny Sandhu, Diabetes (1-2 month follow up. ) 11/19/[address] [address] Brittny Sandhu, DO Prior Authorization (Incujector Katherine 3 [place]/Sensor) 11/19/2024 Results Follow-Up [address] [address] Brittny Sanduh, HEMOGLOBIN, GLYCOSYLATED 11/19/[address] [address] Brittny Sandhu, Question 11/19/2024 Travel 10/31/2024 Scan [employer] SRVCS Scanned, [facility] (SCAN) 10/07/2024 2:00 PM CDT Office Visit [address] [address] Brittny Sandhu, Diabetes (The patient states her work is requesting a letter stating she is able to drive due to being diabetic. She is also wanting to discuss a CGM ); Knee Injury (The patient states she fell last Monday and [facility]. The patient states she is still in pain and was told to f/u in 1 week if not better. ) 10/07/2024 - 10/07/2024 11:59 PM CDT [facility] [place] [address] Brittny Sandhu, DO Discharge Disposition: Home or Self Care (Routine Discharge) 10/07/2024 Results Follow-Up [address] [address] Brittny Sandhu P, DO HEMOGLOBIN, GLYCOSYLATED, URINALYSIS [...] Description 01/06/2025 3:00 PM CDT Office Visit [facility] Family [facility] Internal Medicine [id number] [place] [address] Brittny Sandhu, [address] [place] [address] Health Maintenance Due Date Last Done Comments [...] 08/14/2024 Hepatitis C Completed 10/07/2024 PHQ-2 (Physician [place]) Completed 10/07/2024 Pneumococcal Vaccine: Pediatrics (0 to 5 Years) and At-Risk Patients (6 to 49 Years) Completed 10/07/2024, 07/30/2001, 2000, Additional history exists RSV Immunizations Under 20 Months Aged Out No longer eligible based on patient's age to complete this topic Procedures Procedure Name Priority Date/Time Associated Diagnosis Comments COLLECT.CAPILLARY (FNGR,HEEL,EAR) Routine 11/19/2024 7:28 AM CDT Uncontrolled type 2 diabetes mellitus with hyperglycemia ([facility] HHS/HCC) HEMOGLOBIN, GLYCOSYLATED Routine 11/19/2024 Uncontrolled type 2 diabetes mellitus with hyperglycemia ([facility] HHS/HCC) OUTSIDE LAB (SCAN ORDER) 10/31/2024 OUTSIDE LAB (SCAN ORDER) 10/31/2024 OUTSIDE LAB (SCAN ORDER) 10/31/2024 XR KNEE LT 3V Routine 10/07/2024 3:43 PM CDT Acute pain of left knee LIPOPROTEIN, LDL CHOL, DIRECT Routine 10/07/2024 3:25 PM CDT ALBUMIN URINE RANDOM W/CREATININE Routine 10/07/2024 3:25 PM CDT Uncontrolled type 2 diabetes mellitus with hyperglycemia ([facility] HHS/HCC) Annual physical exam Screening for lipid [...] Uncontrolled type 2 diabetes mellitus with hyperglycemia ([facility]) TEST URINE Routine 10/07/2024 Encounter for test, result unknown URINALYSIS AUTO DIP Routine 10/07/2024 Dysuria HEMOGLOBIN, GLYCOSYLATED Routine 10/07/2024 Uncontrolled type 2 diabetes mellitus with hyperglycemia ([facility]) OUTSIDE LAB (SCAN ORDER) 10/06/2024 OUTSIDE LAB [...] period is included. HGB A1C 9.9 % -[facility] [place] [place] 11/19/2024 us Brittny Sandhu DO LABORATORY [place] [id number], [place] * OUTSIDE LAB (SCAN ORDER) (10/31/2024) [...] 3:49 PM Narrative 10/07/2024 3:49 PM CDT [facility] [place] [address] 4 VIEWS OF THE LEFT KNEE Clinical History: Pain Comparison: None 4 views of the left knee demonstrate the bony elements to be intact. There is no evidence of fracture or dislocation. The surrounding soft tissues appear normal. Procedure Note Percy Crouch MD - 10/07/2024 [facility] [place] [address] 4 VIEWS OF THE LEFT KNEE Clinical [...] - 3.740 uIU/ML 10/07/2024 7:20 PM CDT [facility] 10/07/2024 3:25 PM CDT Brittny Sandhu DO LABORATORY Final Re sult [facility] [address] [place] [address], [place] [phone] * (ABNORMAL) ALBUMIN URINE RANDOM W/CREATININE (10/07/2024 3:25 PM CDT) MICROALBUMIN (U) 39.1(H) <20 MG/L 10/08/19 7:56 PM CDT [facility] CREATININE RANDOM (U) 72.0 MG/DL 10/07/2024 7:56 PM CDT [facility] ALBUMIN/CREAT RATIO 54.3(H) <30 MG/G 10/07/2024 7:56 PM CDT [facility] URINE SPECIMEN / Unknown 10/07/2024 3:25 PM CDT Brittny Sandhu DO URINE ORDERABLES Final R esult [facility] [address] [place] [address], [place] [phone] * (ABNORMAL) COMPREHENSIVE METABOLIC PANEL (10/07/2024 3:25 PM CDT) Pathologist [facility] SODIUM S/P/B 137 136 - 145 MMOL/L 10/07/2024 7:20 PM CDT [facility] POTASSIUM S/P/B 4.4 3.5 - 5.1 MMOL/L 10/07/2024 7:20 PM CDT [facility] S/P/B 98 98 - 107 MMOL/L 10/07/2024 7:20 PM CDT [facility] CO2 29.6 21 - 32 MMOL/L 10/07/2024 7:20 PM T [facility] GLUCOSE 285(H) 70 - 99 MG/DL 10/07/2024 7:20 PM CDT [facility] BUN 9 7 - 18 MG/DL 10/07/2024 7:20 PM T [facility] CREATININE S/P/B 0.61 0.55 - 1.02 MG/DL 10/07/2024 7:20 PM T [facility] CALCIUM S/P/B 9.7 8.4 - 10.5 MG/DL 10/07/2024 7:20 PM CDT [facility] BILIRUBIN TOTAL S/P/B 0.3 0.2 - 1.0 MG/DL 10/07/2024 7:20 PM CDT [facility] ALKALINE PHOSPHATASE S/P/B 83 37 - 98 U/L 10/07/2024 7:20 PM CDT [facility] AST 21 15 - 37 U/L 10/07/2024 7:20 PM CDT [facility] ALT 48 14 - 59 U/L 10/07/2024 7:20 PM CDT [facility] TOTAL PROTEIN S/P/B 8.5(H) 6.4 - 8.2 G/DL 10/07/2024 7:20 PM CDT [facility] ALBUMIN S/P/B 4.2 3.4 - 5.0 G/DL 10/07/2024 7:20 PM CDT [facility] ANION GAP 9.4 5 - 15 MMOL/L 10/07/2024 7:20 PM CDT [facility] Comment:REFERENCE RANGE NOT ESTABLISHED OSMOLALITY (CALC) 293 MOSM/KG 025 7:20 PM CDT [facility] Comment:REFERENCE RANGE NOT ESTABLISHED GFR ESTIMATE >90 >90 ML/MIN/1. 73 M2 10/07/2024 7:20 PM CDT [facility] GFR NOTES GFR REFERENCE S: 10/07/2024 7:20 PM T [facility] Comment: THE ESTIMATED GFR IS CALCULATED [...] Brittny Sandhu DO LABORATORY Final Re sult [facility] [address] [place] [address], * (ABNORMAL) LIPID PANEL (10/07/2024 3:25 PM CDT) CHOLESTEROL 259(H) <200 MG/DL 10/07/2024 7:20 PM CDT [facility] TRIGLYCERIDES 402(H) <150 MG/DL 10/07/2024 7:20 PM CDT [facility] HDL 45 >40 MG/DL 10/07/2024 7:20 PM CDT [facility] LDL-C TRIGLYCERIDES >400 MG/DL, SEE DIRECT LDL REPORT <100 MG/DL 10/07/2024 7:20 PM CDT [facility] VLDL CALCULATION UNABLE TO CALCULATE 5 - 28 MG/DL 10/07/2024 7:20 PM CDT [facility] CHOL/HDL RATIO 5.8(H) 0.0 - 4.0 10/07/2024 7:20 PM CDT [facility] LDL/HDL UNABLE TO CALCULATE 0.41 - 2.13 10/07/2024 7:20 PM CDT [facility] NON HDL CHOLESTEROL 214(H) <140 MG/DL 10/07/2024 7:20 PM CDT [facility] 10/07/2024 3:25 PM CDT Brittny Kg Sandhu DO LABORATORY Final Re sult Performing Organization Address City/[facility]/ZIP Co de Phone Number [facility] [address] [place] [address], [place] [phone] * HEPATITIS C ANTIBODY (10/07/2024 3:25 PM CDT) [facility] HEPATITIS C AB NON-REACTI VE NON-REACT ALICJA 10/07/2024 10:04 PM CDT [facility] Comment: ANTIBODIES TO HCV NOT DETECTED. DOES NOT EXCLUDE THE POSSIBILITY OF EXPOSURE TO HCV. 10/07/2024 3:25 PM CDT Brittny P [employer] LABORATORY Final Re sult [facility] [address] [place] [address], [place] [phone] * HCG QUANT (SERUM)-CHORIONIC GONADOTROPIN (10/07/2024 3:25 PM CDT) [facility] HCG QUANTITATIVE <1 MIU/ML 10/08/19 10:41 PM CDT [facility] Comment: <5 IS NEGATIVE 5-25 IS BORDERLINE >25 IS POSITIVE ASSAY PERFORMED BY CHEMILUMINESCENCE METHODOLOGY USING [employer] [facility]. PATIENT RESULTS DETERMINED BY ASSAYS USING DIFFERENT MANUFACTURERS FOR METHODS MAY NOT BE COMPARABLE. 10/07/2024 3:25 PM CDT Brittny Sandhu DO LABORATORY Final Re sult Performing Organization Address [facility]/ZIP Co de Phone Number [facility] [address] [place] [address], [place] [phone] * LIPOPROTEIN, LDL CHOL, DIRECT (10/07/2024 3:25 PM CDT) DIRECT LDL 142 MG/DL 10/07/2024 9:26 PM CDT [facility] Comment:130-159 BORDERLINE H IGH 10/07/2024 3:25 PM CDT Brittny Sandhu DO LABORATORY Final Re sult Performing Organization Address [facility] de Phone Number [facility] [address] [place] [address], [place] [phone] * (ABNORMAL) CBC W/DIFF AUTOMATED (10/07/2024 3:25 PM CDT) WBC 8.69 4.00 - 10.80 x10'3/uL 10/07/2024 7:13 PM CDT [facility] RBC 5.51(H) 4.10 - 5.40 x10'6/uL 10/07/2024 7:13 PM CDT [facility] HGB 13.7 12.0 - 16.0 G/DL 10/07/2024 7:13 PM CDT [facility] HCT 42.7 36.0 - 47.0 % 10/07/2024 7:13 PM CDT [facility] MCV 77.5(L) 78.0 - 100.0 FL 10/07/2024 7:13 PM CDT [facility] MCH 24.9(L) 27.0 - 31.0 PG 10/07/2024 7:13 PM CDT [facility] MCHC 32.1(L) 33.0 - 36.0 G/DL 10/07/2024 7:13 PM CDT [facility] RDW 12.8 11.5 - 14.5 % 10/07/2024 7:13 PM CDT [facility] PLT 346 150 - 350 x10'3/uL 10/07/2024 7:13 PM CDT [facility] MPV 11.8(H) 7.4 - 10.4 FL 10/07/2024 7:13 PM CDT [facility] DIFFERENTIAL TYPE AUTOMATED DIFFERENTIAL 10/07/2024 7:13 PM CDT [facility] NEUTROPHILS % 61.5 % 10/07/2024 7:13 PM CDT [facility] LYMPHOCYTES % 30.1 % 10/07/2024 7:13 PM CDT [facility] MONOCYTES % 5.9 % 10/07/2024 7:13 PM CDT [facility] EOSINOPHILS % 2.3 % 10/07/2024 7:13 PM CDT [facility] BASOPHILS % 0.2 % 10/07/2024 7:13 PM CDT [facility] IMMATURE GRANS % 0.0 % 10/07/2024 7:13 PM CDT [facility] ABS. NEUTROPHILS 5.34 1.60 - 8.30 x10'3/uL 10/07/2024 7:13 PM CDT [facility] ABS. LYMPHOCYTES 2.62 0.80 - 4.70 x10'3/uL 10/07/2024 7:13 PM CDT [facility] ABS. MONOCYTES 0.51 0.00 - 1.50 x10'3/uL 10/07/2024 7:13 PM CDT [facility] ABS. EOSINOPHILS 0.20 0.00 - 0.40 x10'3/uL 10/07/2024 7:13 PM CDT [facility] ABS. BASOPHILS 0.02 0.00 - 0.20 x10'3/uL 10/07/2024 7:13 PM CDT [facility] ABS. IMMATURE GRANULOCYTES 0.00 0.00 - 0.03 x10'3/uL 10/07/2024 7:13 PM CDT [facility] 10/07/2024 3:25 PM CDT Brittny Sandhu DO LABORATORY Final Re sult Performing Organization Address City/[facility]/ZIP Co de Phone Number [facility] [address] [place] [address], [place] [phone] * URINE BACTERIA CULTURE (10/07/2024 2:57 PM CDT) SPEC DESCRIPTION URINE CLEAN CATCH 10/08/2024 2:23 PM CDT [facility] SPECIAL REQUESTS NO SPECIAL REQUEST 10/08/2024 2:23 PM CDT [facility] CULTURE RESULT FEW CONTAMINANTS 01/2025 1:10 PM CDT [facility] URINE SPECIMEN OBTAINED BY CLEAN CATCH PROCEDURE / Unknown 10/07/2024 2:57 PM CDT 10/08/2024 5:32 PM CDT us Brittny Sandhu DO MICROBIOLOGY - GENERAL O RDERABLES Final Result [facility] [address] [place] [address], [place] [phone] * TEST URINE (10/07/2024) URINE HCG TEST NEGATIVE NEGATIVE [facility] Internal Control: VALID VALID [facility] URINE SPECIMEN FROM URETHRA / Unknown 10/07/2024 Brittny Kg Sandhu DO URINE ORDERABLES Final R esult Performing Organization Address [facility] [address], [place] * (ABNORMAL) URINALYSIS AUTO DIP (10/07/2024) COLOR (U) YELLOW YELLOW [facility] TRANSPARENCY CLOUDY(A) CLEAR [facility] GLUCOSE (U) 500 mg/dl(A) NEGATIVE MG/DL [facility] BILIRUBIN (U) NEGATIVE NEGATIVE [facility] KETONES MG/DL (U) NEGATIVE NEGATIVE MG/DL [facility] SPECIFIC GRAVITY (U) 1.020 1.001 - 1.035 [facility] BLOOD (U) TRACE (Non Hemolyzed, Intact)(A) NEGATIVE [facility] U PH 5.5 5.0 - 9.0 [facility] PROTEIN (U) NEGATIVE NEGATIVE mg/dL [facility] UROBILINOGEN 0.2 0.2 - 1.0 EU/dL = mg/dL [facility] NITRITES NEGATIVE NEGATIVE MG/DL [facility] LEUKOCYTES (U) NEGATIVE NEGATIVE [facility] URINE SPECIMEN OBTAINED BY CLEAN CATCH PROCEDURE / Unknown 10/07/2024 us Brittny Sandhu DO URINE ORDERABLES Final R esult Performing Organization Address [facility]/[place] [address], [place] * IMAGE GENERIC (09/28/2024) Anatomical Region [...] Med Group Scanned SCANNING Final Resu lt [facility] ONBASE from Last 3 Months or Most Recently Relevant to Health Maintenance Insurance Care Teams Urban Forester Relationship Specialty Start Date End Date Brittny Sandhu DO [address] [place] [id number] PCP - General FAMILY PRACTICE 06/13/23
--- NOTE | 2024-12-11 19:12 | PC.NURSE ---
Received report from CARL Cortez for cont. of care. Pt AOx4, lying on stretcher c/o abdominal pain. Refer to ELENA for medication education.
[2024-12-11 19:16] LABS: Alanine Aminotransferase 29 U/L (6-35); Albumin Level 4.4 g/dL (3.5-5.1); Alkaline Phosphatase 54 U/L (38-126); Anion Gap 12 mmol/L (4-12); Aspartate Amino Transferase 30 U/L (14-36); Bilirubin,Total 0.5 mg/dL (0.2-1.3); Blood Urea Nitrogen 16 mg/dL (7-17); Calcium 9.3 mg/dL (8.4-10.2); Carbon Dioxide 23 mmol/L (22-30); Chloride 102 mmol/L (98-107); Estimated CRCL calculation 158 ml/min; Estimated Glomerular Filt Rate > 60; Glucose 205 mg/dL (65-110); Potassium 4.0 mmol/L (3.4-5.0); Sodium 137 mmol/L (137-145); Total Protein 8.0 g/dL (6.3-8.2)
[2024-12-11 19:18] LABS: INR 1.0; Prothrombin Time 13.3 Seconds (11.1-14.7)
[2024-12-11 19:19] LABS: Partial Thromboplastin Time 25.3 Seconds (22.3-36.8)
[2024-12-11 19:55] VITALS: BP 119/78; PULSE 96; RESP 13; TEMP 36.7; O2SAT 100
[2024-12-11] MEDS: HYDROcodone/acetaminophen (*CRX) 5-325 MG TABLET 1 TAB PO (19:56)
[2024-12-11] MEDS: ONDANSETRON INJ 4 MG/2 ML VIAL IV PUSH (19:58)
[2024-12-11 20:12] LABS: Add Urine Microscopic? YES; Appearance Urine Clear (Clear); Glucose Urine UA Trace mg/dL (Negative); Leukocyte Esterase Ur Trace LEU/UL (Negative); Nitrate Urine Negative (Negative); Non Pathogenic Casts 0-2; Specific Grav Ur 1.034 (1.001-1.035)
[2024-12-11 20:26] LABS: BEDSIDEPREGUCG Negative (Negative)
[2024-12-11 20:26] LABS: Beta HCG Quantitative 322.08 mIU/ML
[2024-12-11 21:25] VITALS: PULSE 99; RESP 16; O2SAT 97
== END 2024-12-11 21:28 | disposition home or self-care (01) ==
PROVIDERS: Physician Assistant; Emergency Provider Physician Assistant; PCP Student in an Organized Health Care Education/Training Program
DX: N93.8 Other specified abnormal uterine and vaginal bleeding (principal); O03.4 Incomplete spontaneous abortion without complication; F90.9 Attention-deficit hyperactivity disorder, unspecified type; F31.9 Bipolar disorder, unspecified; E11.42 Type 2 diabetes mellitus with diabetic polyneuropathy; Z79.4 Long term (current) use of insulin; R00.0 Tachycardia, unspecified
CPT/HCPCS: 36415; 76856; 80053; 81001; 81025; 84702; 85025; 85610; 85730; 93005; 96361; 96374; 99284; A9270; J2405; J7030

== ENCOUNTER 2024-12-13 06:22 | Emergency (ER) | payer OTHER, SELFPAY ==
--- OUTSIDE RECORDS SUMMARY | 2024-12-13 06:25 | XMS_ITS | Encounter Summary ---
Author Organization [facility] Address [facility] [place] [address] Care Team Providers Care Strike Plate Attacher Name Role Phone Gerber Betts DO Primary Care Provider + Encounter Details Date Type Department Care Team (Latest Contact Info) Description 11/19/2024 Results Follow-Up [facility] Family & Internal Medicine [address] [address] Gerber Betts DO [address] [place] [address] [phone] HEMOGLOBIN, GLYCOSYLATED Social History Tobacco Use Types [...] Description 01/06/2025 3:00 PM CDT Office Visit [facility] Family & Internal [address] [address] Gerber Betts DO [address] [place] [address] [place] [address] documented as of this encounter Visit Diagnoses Not on filedocumented in this encounter Care Teams Strike Plate Attacher Relationship Specialty Start Date End Date Gerber Betts DO [address] [place] [address] PCP - General FAMILY PRACTICE 06/13/23 documented as of this encounter
--- OUTSIDE RECORDS SUMMARY | 2024-12-13 06:25 | XMS_ITS | Clinical Summary ---
Author Organization [facility] Address [address] [place] [address] Care Team Providers Care Rubber Liner Name Role Phone JoshsteveBrittny arnold Kg LOGAN [...] s:Uncontrolled type 2 diabetes mellitus with hyperglycemia ([facility] HHS/[facility]) Take 2 tablets (1,000 mg total) by mouth daily with breakfast. 180 tablet 025 Active Continuous Glucose Investigation Division Sergeant (FREESTYLE KATHERINE 3 READER) DeviceIndication s:Uncontrolled type 2 diabetes mellitus with hyperglycemia ([facility] HHS/HCC) Check blood sugar three times daily and as needed 1 each 025 Active Continuous Glucose Sensor (FREESTYLE KATHERINE 3 SENSOR) MiscIndications: Uncontrolled type 2 diabetes mellitus with hyperglycemia ([facility]) Check blood sugar three times [...] 36 mg/g (< 30) Jul 19, 2016 ([place], [place]): first morning voided urine microalbumin/creatinine: 23 [...] 04/21/2016 Overview (06/13/2023): Apr 15, 2016 - [facility], [address], [place] [address] Na 143 mmol/L, K 4.4 mmol/L, Cl [...] mg/dL (< 130) Jul 19, 2016 - [facility] Cholesterol 151 mg/dL (140-199), triglycerides [...] associat ed with type 2 diabetes mellitus ([facility]) 2016 Estimated Date of Delivery Comme nts Yes 07/11/2025 Encounters Date Type Department Care Team Description 11/19/2024 7:20 AM CDT Office Visit [address] [address] Brittny Sandhu, Diabetes (1-2 month follow up. ) 11/19/[address] [address] Brittny Sandhu, DO Prior Authorization ([employer] Katherine 3 [place]/Sensor) 11/19/2024 Results Follow-Up [address] [address] Brittny Sandhu, HEMOGLOBIN, GLYCOSYLATED 11/19/[address] [address] Brittny Sandhu, Question 11/19/2024 Travel 10/31/2024 Scan [facility] Scanned, [facility] (SCAN) 10/07/2024 2:00 PM CDT Office Visit [address] [address] Brittny Sandhu, Diabetes (The patient states her work is requesting a letter stating she is able to drive due to being diabetic. She is also wanting to discuss a CGM ); Knee Injury (The patient states she fell last Monday and went to [facility]. The patient states she is still in pain and was told to f/u in 1 week if not better. ) 10/07/2024 - 10/07/2024 11:59 PM CDT [facility] [place] [address] Brittny Sandhu, DO Discharge Disposition: Home or Self Care (Routine Discharge) 10/07/2024 Results Follow-Up [address] [address] Brittny Sandhu P, DO HEMOGLOBIN, GLYCOSYLATED, URINALYSIS [...] Description 01/06/2025 3:00 PM CDT Office Visit [facility] [id number] [place] [address] Brittny Sandhu, [address] [place] [address] Health Maintenance Due Date Last Done Comments [...] 08/14/2024 Hepatitis C Completed 10/07/2024 PHQ-2 (Physician [facility]) Completed 10/07/2024 Pneumococcal Vaccine: Pediatrics (0 to 5 Years) and At-Risk Patients (6 to 49 Years) Completed 10/07/2024, 07/30/2001, 2000, Additional history exists RSV Immunizations Under 20 Months Aged Out No longer eligible based on patient's age to complete this topic Procedures Procedure Name Priority Date/Time Associated Diagnosis Comments COLLECT.CAPILLARY (FNGR,HEEL,EAR) Routine 11/19/2024 7:28 AM CDT Uncontrolled type 2 diabetes mellitus with hyperglycemia ([facility] HHS/HCC) HEMOGLOBIN, GLYCOSYLATED Routine 11/19/2024 Uncontrolled type 2 diabetes mellitus with hyperglycemia ([facility] HHS/HCC) OUTSIDE LAB (SCAN ORDER) 10/31/2024 OUTSIDE LAB (SCAN ORDER) 10/31/2024 OUTSIDE LAB (SCAN ORDER) 10/31/2024 XR KNEE LT 3V Routine 10/07/2024 3:43 PM CDT Acute pain of left knee LIPOPROTEIN, LDL CHOL, DIRECT Routine 10/07/2024 3:25 PM CDT ALBUMIN URINE RANDOM W/CREATININE Routine 10/07/2024 3:25 PM CDT Uncontrolled type 2 diabetes mellitus with hyperglycemia ([facility] HHS/HCC) Annual physical exam Screening [...] Uncontrolled type 2 diabetes mellitus with hyperglycemia ([facility]) TEST URINE Routine 10/07/2024 Encounter for test, result unknown URINALYSIS AUTO DIP Routine 10/07/2024 Dysuria HEMOGLOBIN, GLYCOSYLATED Routine 10/07/2024 Uncontrolled type 2 diabetes mellitus with hyperglycemia ([facility]) OUTSIDE LAB (SCAN ORDER) 10/06/2024 [...] period is included. HGB A1C 9.9 % -[facility] [place] 11/19/2024 us Brittny Sandhu DO LABORATORY Final [place] [address], [place] * OUTSIDE LAB (SCAN ORDER) (10/31/2024) [...] 3:49 PM Narrative 10/07/2024 3:49 PM CDT [facility] [place] [address] 4 VIEWS OF THE LEFT KNEE Clinical History: Pain Comparison: None 4 views of the left knee demonstrate the bony elements to be intact. There is no evidence of fracture or dislocation. The surrounding soft tissues appear normal. Procedure Note Percy Crouch MD - 10/07/2024 [facility] [place] [address] 4 VIEWS OF THE LEFT KNEE Clinical [...] - 3.740 uIU/ML 10/07/2024 7:20 PM CDT [facility] 10/07/2024 3:25 PM CDT Brittny Sandhu DO LABORATORY Final Re sult [facility] [address] [place] [address], [place] [phone] * (ABNORMAL) ALBUMIN URINE RANDOM W/CREATININE (10/07/2024 3:25 PM CDT) MICROALBUMIN (U) 39.1(H) <20 MG/L 10/08/19 7:56 PM CDT [facility] CREATININE RANDOM (U) 72.0 MG/DL 10/07/2024 7:56 PM CDT [facility] ALBUMIN/CREAT RATIO 54.3(H) <30 MG/G 10/07/2024 7:56 PM CDT [facility] URINE SPECIMEN / Unknown 10/07/2024 3:25 PM CDT Brittny Sandhu DO URINE ORDERABLES Final R esult [facility] [address] [place] [address], [place] [phone] * (ABNORMAL) COMPREHENSIVE METABOLIC PANEL (10/07/2024 3:25 PM CDT) Pathologist [facility] SODIUM S/P/B 137 136 - 145 MMOL/L 10/07/2024 7:20 PM CDT [facility] POTASSIUM S/P/B 4.4 3.5 - 5.1 MMOL/L 10/07/2024 7:20 PM CDT -[facility] CHLORIDE S/P/B 98 98 - 107 MMOL/L 10/07/2024 7:20 PM CDT [facility] CO2 29.6 21 - 32 MMOL/L 10/07/2024 7:20 PM T -[facility] GLUCOSE 285(H) 70 - 99 MG/DL 10/07/2024 7:20 PM CDT [facility] BUN 9 7 - 18 MG/DL 10/07/2024 7:20 PM T [facility] CREATININE S/P/B 0.61 0.55 - 1.02 MG/DL 10/07/2024 7:20 PM T [facility] CALCIUM S/P/B 9.7 8.4 - 10.5 MG/DL 10/07/2024 7:20 PM CDT [facility] BILIRUBIN TOTAL S/P/B 0.3 0.2 - 1.0 MG/DL 10/07/2024 7:20 PM CDT [facility] ALKALINE PHOSPHATASE S/P/B 83 37 - 98 U/L 10/07/2024 7:20 PM CDT [facility] AST 21 15 - 37 U/L 10/07/2024 7:20 PM CDT [facility] ALT 48 14 - 59 U/L 10/07/2024 7:20 PM CDT [facility] TOTAL PROTEIN S/P/B 8.5(H) 6.4 - 8.2 G/DL 10/07/2024 7:20 PM CDT [facility] ALBUMIN S/P/B 4.2 3.4 - 5.0 G/DL 10/07/2024 7:20 PM CDT [facility] ANION GAP 9.4 5 - 15 MMOL/L 10/07/2024 7:20 PM CDT [facility] Comment:REFERENCE RANGE NOT ESTABLISHED OSMOLALITY (CALC) 293 MOSM/KG 025 7:20 PM CDT [facility] Comment:REFERENCE RANGE NOT ESTABLISHED GFR ESTIMATE >90 >90 ML/MIN/1. 73 M2 10/07/2024 7:20 PM CDT [facility] GFR NOTES GFR REFERENCE S: 10/07/2024 7:20 PM T [facility] Comment: THE ESTIMATED GFR IS CALCULATED USING [...] Brittny Sandhu DO LABORATORY Final Re sult [facility] [address] [place] [address], * (ABNORMAL) LIPID PANEL (10/07/2024 3:25 PM CDT) CHOLESTEROL 259(H) <200 MG/DL 10/07/2024 7:20 PM CDT [facility] TRIGLYCERIDES 402(H) <150 MG/DL 10/07/2024 7:20 PM CDT [facility] HDL 45 >40 MG/DL 10/07/2024 7:20 PM CDT [facility] LDL-C TRIGLYCERIDES >400 MG/DL, SEE DIRECT LDL REPORT <100 MG/DL 10/07/2024 7:20 PM CDT [facility] VLDL CALCULATION UNABLE TO CALCULATE 5 - 28 MG/DL 10/07/2024 7:20 PM CDT [facility] CHOL/HDL RATIO 5.8(H) 0.0 - 4.0 10/07/2024 7:20 PM CDT [facility] LDL/HDL UNABLE TO CALCULATE 0.41 - 2.13 10/07/2024 7:20 PM CDT [facility] NON HDL CHOLESTEROL 214(H) <140 MG/DL 10/07/2024 7:20 PM CDT [facility] 10/07/2024 3:25 PM CDT Brittny Kg Sandhu DO LABORATORY Final Re sult Performing Organization Address City/[facility]/ZIP Co de Phone Number [facility] [address] [place] [address], [place] [phone] * HEPATITIS C ANTIBODY (10/07/2024 3:25 PM CDT) [facility] HEPATITIS C AB NON-REACTI VE NON-REACT ALICJA 10/07/2024 10:04 PM CDT [facility] Comment: ANTIBODIES TO HCV NOT DETECTED. DOES NOT EXCLUDE THE POSSIBILITY OF EXPOSURE TO HCV. 10/07/2024 3:25 PM CDT Brittny P [facility] [facility] [facility] LABORATORY Final Re sult [facility] [address] [place] [address], [place] [phone] * HCG QUANT (SERUM)-CHORIONIC GONADOTROPIN (10/07/2024 3:25 PM CDT) [facility] HCG QUANTITATIVE <1 MIU/ML 10/08/19 10:41 PM CDT [facility] Comment: <5 IS NEGATIVE 5-25 IS BORDERLINE >25 IS POSITIVE ASSAY PERFORMED BY CHEMILUMINESCENCE METHODOLOGY USING [email or web address] [facility]. PATIENT RESULTS DETERMINED BY ASSAYS USING DIFFERENT MANUFACTURERS FOR METHODS MAY NOT BE COMPARABLE. 10/07/2024 3:25 PM CDT Brittny Sandhu DO LABORATORY Final Re sult Performing Organization Address [facility]/ZIP Co de Phone Number [facility] [address] [place] [address], [place] [phone] * LIPOPROTEIN, LDL CHOL, DIRECT (10/07/2024 3:25 PM CDT) DIRECT LDL 142 MG/DL 10/07/2024 9:26 PM CDT [facility] Comment:130-159 BORDERLINE H IGH 10/07/2024 3:25 PM CDT Brittny Sandhu DO LABORATORY Final Re sult Performing Organization Address [facility] de Phone Number [facility] [address] [place] [address], [place] [phone] * (ABNORMAL) CBC W/DIFF AUTOMATED (10/07/2024 3:25 PM CDT) WBC 8.69 4.00 - 10.80 x10'3/uL 10/07/2024 7:13 PM CDT [facility] RBC 5.51(H) 4.10 - 5.40 x10'6/uL 10/07/2024 7:13 PM CDT [facility] HGB 13.7 12.0 - 16.0 G/DL 10/07/2024 7:13 PM CDT [facility] HCT 42.7 36.0 - 47.0 % 10/07/2024 7:13 PM CDT [facility] MCV 77.5(L) 78.0 - 100.0 FL 10/07/2024 7:13 PM CDT [facility] MCH 24.9(L) 27.0 - 31.0 PG 10/07/2024 7:13 PM CDT [facility] MCHC 32.1(L) 33.0 - 36.0 G/DL 10/07/2024 7:13 PM CDT [facility] RDW 12.8 11.5 - 14.5 % 10/07/2024 7:13 PM CDT [facility] PLT 346 150 - 350 x10'3/uL 10/07/2024 7:13 PM CDT [facility] MPV 11.8(H) 7.4 - 10.4 FL 10/07/2024 7:13 PM CDT [facility] DIFFERENTIAL TYPE AUTOMATED DIFFERENTIAL 10/07/2024 7:13 PM CDT [facility] NEUTROPHILS % 61.5 % 10/07/2024 7:13 PM CDT [facility] LYMPHOCYTES % 30.1 % 10/07/2024 7:13 PM CDT [facility] MONOCYTES % 5.9 % 10/07/2024 7:13 PM CDT [facility] EOSINOPHILS % 2.3 % 10/07/2024 7:13 PM CDT [facility] BASOPHILS % 0.2 % 10/07/2024 7:13 PM CDT [facility] IMMATURE GRANS % 0.0 % 10/07/2024 7:13 PM CDT [facility] ABS. NEUTROPHILS 5.34 1.60 - 8.30 x10'3/uL 10/07/2024 7:13 PM CDT [facility] ABS. LYMPHOCYTES 2.62 0.80 - 4.70 x10'3/uL 10/07/2024 7:13 PM CDT [facility] ABS. MONOCYTES 0.51 0.00 - 1.50 x10'3/uL 10/07/2024 7:13 PM CDT [facility] ABS. EOSINOPHILS 0.20 0.00 - 0.40 x10'3/uL 10/07/2024 7:13 PM CDT [facility] ABS. BASOPHILS 0.02 0.00 - 0.20 x10'3/uL 10/07/2024 7:13 PM CDT [facility] ABS. IMMATURE GRANULOCYTES 0.00 0.00 - 0.03 x10'3/uL 10/07/2024 7:13 PM CDT [facility] 10/07/2024 3:25 PM CDT Brittny Sandhu DO LABORATORY Final Re sult Performing Organization Address City/[facility]/ZIP Co de Phone Number [facility] [address] [place] [address], [place] [phone] * URINE BACTERIA CULTURE (10/07/2024 2:57 PM CDT) SPEC DESCRIPTION URINE CLEAN CATCH 10/08/2024 2:23 PM CDT [facility] SPECIAL REQUESTS NO SPECIAL REQUEST 10/08/2024 2:23 PM CDT [facility] CULTURE RESULT FEW CONTAMINANTS 01/2025 1:10 PM CDT [facility] URINE SPECIMEN OBTAINED BY CLEAN CATCH PROCEDURE / Unknown 10/07/2024 2:57 PM CDT 10/08/2024 5:32 PM CDT us Brittny Sandhu DO MICROBIOLOGY - GENERAL O RDERABLES Final Result [facility] [address] [place] [address], [place] [phone] * TEST URINE (10/07/2024) URINE HCG TEST NEGATIVE NEGATIVE [facility] Internal Control: VALID VALID [facility] URINE SPECIMEN FROM URETHRA / Unknown 10/07/2024 Brittny Kg Sandhu DO URINE ORDERABLES Final R esult Performing Organization Address [facility] [place] [address], [place] * (ABNORMAL) URINALYSIS AUTO DIP (10/07/2024) COLOR (U) YELLOW YELLOW [facility] TRANSPARENCY CLOUDY(A) CLEAR [facility] GLUCOSE (U) 500 mg/dl(A) NEGATIVE MG/DL [facility] BILIRUBIN (U) NEGATIVE NEGATIVE [facility] MG/DL (U) NEGATIVE NEGATIVE MG/DL [facility] SPECIFIC GRAVITY (U) 1.020 1.001 - 1.035 [facility] BLOOD (U) TRACE (Non Hemolyzed, Intact)(A) NEGATIVE [facility] U PH 5.5 5.0 - 9.0 [facility] PROTEIN (U) NEGATIVE NEGATIVE mg/dL [facility] UROBILINOGEN 0.2 0.2 - 1.0 EU/dL = mg/dL [facility] NITRITES NEGATIVE NEGATIVE MG/DL [facility] LEUKOCYTES (U) NEGATIVE NEGATIVE [facility] URINE SPECIMEN OBTAINED BY CLEAN CATCH PROCEDURE / Unknown 10/07/2024 us Brittny Sandhu DO URINE ORDERABLES Final R esult Performing Organization Address [facility]/[place] [address], [place] * IMAGE GENERIC (09/28/2024) Anatomical Region [...] Med Group Scanned SCANNING Final Resu lt [facility] ONBASE from Last 3 Months or Most Recently Relevant to Health Maintenance Insurance Care Teams Rubber Liner Relationship Specialty Start Date End Date Brittny Sandhu DO [address] [place] [id number] PCP - General FAMILY PRACTICE 06/13/23
[2024-12-13 06:27] VITALS: BP 130/8; PULSE 87; TEMP 36.1; O2SAT 100
--- OUTSIDE RECORDS SUMMARY | 2024-12-13 07:51 | XMS_ITS | Clinical Summary ---
Author Organization [facility] Address [address] [place] [address] Care Team Providers Care Sidehand Name Role Phone JoshsteveBrittny arnold Kg LOGAN [...] s:Uncontrolled type 2 diabetes mellitus with hyperglycemia ([facility]) Take 2 tablets (1,000 mg total) by mouth daily with breakfast. 180 tablet 025 Active Continuous Glucose Business Analytics Intern (FREESTYLE KATHERINE 3 READER) DeviceIndication s:Uncontrolled type 2 diabetes mellitus with hyperglycemia ([facility]) Check blood sugar three times daily and as needed 1 each 025 Active Continuous Glucose Sensor (FREESTYLE KATHERINE 3 SENSOR) MiscIndications: Uncontrolled type 2 diabetes mellitus with hyperglycemia ([facility]) Check blood sugar three times daily and [...] Microalbuminuria due to type 2 diabetes mellitus ([facility]) 11/19/2024 Hidradenitis suppurativa 06/13/2023 Bipolar 1 disorder, depressed ([facility]) 06/13/2020 Urine test positive for microalbuminuria 017 Overview (06/13/2023): Apr 20, 2016 - spot urine microalbumin/creatinine: 36 mg/g (< 30) Jul 19, 2016 ([place], [place]): first morning voided urine microalbumin/creatinine: 23 ug/g (< 30) Last Assessment & Plan: ? Nonspecific vs early diabetic related microalbuminuria 1. Obtain first morning voided urine specimen for microalbumin/creatinine ratio (laboratory requisition given at the time of the office visit). 2. Expectant observation. 3. Return appointment in three months. Type 2 diabetes mellitus wit h polyneuropathy ([facility]) 04/21/2016 Overview (06/13/2023): Apr 15, 2016 - [facility], [address], [place] [address] Na 143 mmol/L, K 4.4 mmol/L, Cl [...] mg/dL (< 130) Jul 19, 2016 - [facility] Cholesterol 151 mg/dL (140-199), triglycerides 235 [...] with type 2 diabetes mellitus ([facility]) 2016 Estimated Date of Delivery Comme nts Yes 07/11/2025 Encounters Date Type Department Care Team Description 11/19/2024 7:20 AM CDT Office Visit [address] [address] Brittny Sandhu, Diabetes (1-2 month follow up. ) 11/19/[address] [address] Brittny Sandhu, DO Prior Authorization ([employer] [place] [address] [place]/Sensor) 11/19/2024 Results Follow-Up [address] [address] Brittny Sandhu, HEMOGLOBIN, GLYCOSYLATED 11/19/[address] [address] Brittny Sandhu, Question 11/19/2024 Travel 10/31/2024 Scan [employer] SRVCS Scanned, [facility] (SCAN) 10/07/2024 2:00 PM CDT Office Visit [address] [address] Brittny Sandhu, Diabetes (The patient states her work is requesting a letter stating she is able to drive due to being diabetic. She is also wanting to discuss a CGM ); Knee Injury (The patient states she fell last Monday and went to [facility]. The patient states she is still in pain and was told to f/u in 1 week if not better. ) 10/07/2024 - 10/07/2024 11:59 PM CDT Hospital Encounter [facility] [place] [address] Brittny Sandhu, DO Discharge Disposition: Home or Self Care (Routine Discharge) 10/07/2024 Results Follow-Up [address] [address] Brittny Sandhu P, DO HEMOGLOBIN, GLYCOSYLATED, URINALYSIS [...] Description 01/06/2025 3:00 PM CDT Office Visit [facility] [id number] [place] [address] Brittny Sandhu, [address] [place] [address] Health Maintenance Due Date Last Done Comments [...] 08/14/2024 Hepatitis C Completed 10/07/2024 PHQ-2 (Physician [place]) Completed 10/07/2024 Pneumococcal Vaccine: Pediatrics (0 to 5 Years) and At-Risk Patients (6 to 49 Years) Completed 10/07/2024, 07/30/2001, 2000, Additional history exists RSV Immunizations Under 20 Months Aged Out No longer eligible based on patient's age to complete this topic Procedures Procedure Name Priority Date/Time Associated Diagnosis Comments COLLECT.CAPILLARY (FNGR,HEEL,EAR) Routine 11/19/2024 7:28 AM CDT Uncontrolled type 2 diabetes mellitus with hyperglycemia ([facility]) HEMOGLOBIN, GLYCOSYLATED Routine 11/19/2024 Uncontrolled type 2 diabetes mellitus with hyperglycemia ([facility]) OUTSIDE LAB (SCAN ORDER) 10/31/2024 OUTSIDE LAB (SCAN ORDER) 10/31/2024 OUTSIDE LAB (SCAN ORDER) 10/31/2024 XR KNEE LT 3V Routine 10/07/2024 3:43 PM CDT Acute pain of left knee LIPOPROTEIN, LDL CHOL, DIRECT Routine 10/07/2024 3:25 PM CDT ALBUMIN URINE RANDOM W/CREATININE Routine 10/07/2024 3:25 PM CDT Uncontrolled type 2 diabetes mellitus with hyperglycemia ([facility]) Annual physical exam Screening for lipid [...] Uncontrolled type 2 diabetes mellitus with hyperglycemia ([facility]) TEST URINE Routine 10/07/2024 Encounter for test, result unknown URINALYSIS AUTO DIP Routine 10/07/2024 Dysuria HEMOGLOBIN, GLYCOSYLATED Routine 10/07/2024 Uncontrolled type 2 diabetes mellitus with hyperglycemia ([facility]) OUTSIDE LAB (SCAN ORDER) 10/06/2024 OUTSIDE LAB [...] period is included. HGB A1C 9.9 % -[facility] 11/19/2024 us Brittny Sandhu DO LABORATORY [place] [address], [place] * OUTSIDE LAB (SCAN ORDER) (10/31/2024) [...] 3:49 PM Narrative 10/07/2024 3:49 PM CDT [facility] [place] [address] 4 VIEWS OF THE LEFT KNEE Clinical History: Pain Comparison: None 4 views of the left knee demonstrate the bony elements to be intact. There is no evidence of fracture or dislocation. The surrounding soft tissues appear normal. Procedure Note Percy Crouch MD - 10/07/2024 [facility] [place] [address] 4 VIEWS OF THE LEFT KNEE Clinical [...] - 3.740 uIU/ML 10/07/2024 7:20 PM CDT [facility] 10/07/2024 3:25 PM CDT Brittny Sandhu DO LABORATORY Final Re sult [facility] [address] [place] [address], [place] [phone] * (ABNORMAL) ALBUMIN URINE RANDOM W/CREATININE (10/07/2024 3:25 PM CDT) MICROALBUMIN (U) 39.1(H) <20 MG/L 10/08/19 7:56 PM CDT [facility] CREATININE RANDOM (U) 72.0 MG/DL 10/07/2024 7:56 PM CDT [facility] ALBUMIN/CREAT RATIO 54.3(H) <30 MG/G 10/07/2024 7:56 PM CDT [facility] URINE SPECIMEN / Unknown 10/07/2024 3:25 PM CDT Brittny Sandhu DO URINE ORDERABLES Final R esult [facility] [address] [place] [address], [place] [phone] * (ABNORMAL) COMPREHENSIVE METABOLIC PANEL (10/07/2024 3:25 PM CDT) Pathologist [facility] SODIUM S/P/B 137 136 - 145 MMOL/L 10/07/2024 7:20 PM CDT [facility] POTASSIUM S/P/B 4.4 3.5 - 5.1 MMOL/L 10/07/2024 7:20 PM CDT -[facility] CHLORIDE S/P/B 98 98 - 107 MMOL/L 10/07/2024 7:20 PM CDT [facility] CO2 29.6 21 - 32 MMOL/L 10/07/2024 7:20 PM T -[facility] GLUCOSE 285(H) 70 - 99 MG/DL 10/07/2024 7:20 PM CDT [facility] BUN 9 7 - 18 MG/DL 10/07/2024 7:20 PM T [facility] CREATININE S/P/B 0.61 0.55 - 1.02 MG/DL 10/07/2024 7:20 PM T [facility] CALCIUM S/P/B 9.7 8.4 - 10.5 MG/DL 10/07/2024 7:20 PM CDT [facility] BILIRUBIN TOTAL S/P/B 0.3 0.2 - 1.0 MG/DL 10/07/2024 7:20 PM CDT [facility] ALKALINE PHOSPHATASE S/P/B 83 37 - 98 U/L 10/07/2024 7:20 PM CDT [facility] AST 21 15 - 37 U/L 10/07/2024 7:20 PM CDT [facility] ALT 48 14 - 59 U/L 10/07/2024 7:20 PM CDT [facility] TOTAL PROTEIN S/P/B 8.5(H) 6.4 - 8.2 G/DL 10/07/2024 7:20 PM CDT [facility] ALBUMIN S/P/B 4.2 3.4 - 5.0 G/DL 10/07/2024 7:20 PM CDT [facility] ANION GAP 9.4 5 - 15 MMOL/L 10/07/2024 7:20 PM CDT [facility] Comment:REFERENCE RANGE NOT ESTABLISHED OSMOLALITY (CALC) 293 MOSM/KG 025 7:20 PM CDT [facility] Comment:REFERENCE RANGE NOT ESTABLISHED GFR ESTIMATE >90 >90 ML/MIN/1. 73 M2 10/07/2024 7:20 PM CDT [facility] GFR NOTES GFR REFERENCE S: 10/07/2024 7:20 PM T [facility] Comment: THE ESTIMATED GFR IS [...] Brittny Sandhu DO LABORATORY Final Re sult [facility] [address] [place] [address], * (ABNORMAL) LIPID PANEL (10/07/2024 3:25 PM CDT) CHOLESTEROL 259(H) <200 MG/DL 10/07/2024 7:20 PM CDT [facility] TRIGLYCERIDES 402(H) <150 MG/DL 10/07/2024 7:20 PM CDT [facility] HDL 45 >40 MG/DL 10/07/2024 7:20 PM CDT [facility] LDL-C TRIGLYCERIDES >400 MG/DL, SEE DIRECT LDL REPORT <100 MG/DL 10/07/2024 7:20 PM CDT [facility] VLDL CALCULATION UNABLE TO CALCULATE 5 - 28 MG/DL 10/07/2024 7:20 PM CDT [facility] CHOL/HDL RATIO 5.8(H) 0.0 - 4.0 10/07/2024 7:20 PM CDT [facility] LDL/HDL UNABLE TO CALCULATE 0.41 - 2.13 10/07/2024 7:20 PM CDT [facility] NON HDL CHOLESTEROL 214(H) <140 MG/DL 10/07/2024 7:20 PM CDT [facility] 10/07/2024 3:25 PM CDT Brittny Kg Sandhu DO LABORATORY Final Re sult Performing Organization Address City/[facility]/ZIP Co de Phone Number [facility] [address] [place] [address], [place] [phone] * HEPATITIS C ANTIBODY (10/07/2024 3:25 PM CDT) [facility] HEPATITIS C AB NON-REACTI VE NON-REACT ALICJA 10/07/2024 10:04 PM CDT [facility] Comment: ANTIBODIES TO HCV NOT DETECTED. DOES NOT EXCLUDE THE POSSIBILITY OF EXPOSURE TO HCV. 10/07/2024 3:25 PM CDT Brittny P [employer] LABORATORY Final Re sult [facility] [address] [place] [address], [place] [phone] * HCG QUANT (SERUM)-CHORIONIC GONADOTROPIN (10/07/2024 3:25 PM CDT) [facility] HCG QUANTITATIVE <1 MIU/ML 10/08/19 10:41 PM CDT [facility] Comment: <5 IS NEGATIVE 5-25 IS BORDERLINE >25 IS POSITIVE ASSAY PERFORMED BY CHEMILUMINESCENCE METHODOLOGY USING [employer]ENT. PATIENT RESULTS DETERMINED BY ASSAYS USING DIFFERENT MANUFACTURERS FOR METHODS MAY NOT BE COMPARABLE. 10/07/2024 3:25 PM CDT Brittny Sandhu DO LABORATORY Final Re sult Performing Organization Address [facility]/ZIP Co de Phone Number [facility] [address] [place] [address], [place] [phone] * LIPOPROTEIN, LDL CHOL, DIRECT (10/07/2024 3:25 PM CDT) DIRECT LDL 142 MG/DL 10/07/2024 9:26 PM CDT [facility] Comment:130-159 BORDERLINE H IGH 10/07/2024 3:25 PM CDT Brittny Sandhu DO LABORATORY Final Re sult Performing Organization Address [facility] de Phone Number [facility] [address] [place] [address], [place] [phone] * (ABNORMAL) CBC W/DIFF AUTOMATED (10/07/2024 3:25 PM CDT) WBC 8.69 4.00 - 10.80 x10'3/uL 10/07/2024 7:13 PM CDT [facility] RBC 5.51(H) 4.10 - 5.40 x10'6/uL 10/07/2024 7:13 PM CDT [facility] HGB 13.7 12.0 - 16.0 G/DL 10/07/2024 7:13 PM CDT [facility] HCT 42.7 36.0 - 47.0 % 10/07/2024 7:13 PM CDT [facility] MCV 77.5(L) 78.0 - 100.0 FL 10/07/2024 7:13 PM CDT [facility] MCH 24.9(L) 27.0 - 31.0 PG 10/07/2024 7:13 PM CDT [facility] MCHC 32.1(L) 33.0 - 36.0 G/DL 10/07/2024 7:13 PM CDT [facility] RDW 12.8 11.5 - 14.5 % 10/07/2024 7:13 PM CDT [facility] PLT 346 150 - 350 x10'3/uL 10/07/2024 7:13 PM CDT [facility] MPV 11.8(H) 7.4 - 10.4 FL 10/07/2024 7:13 PM CDT [facility] DIFFERENTIAL TYPE AUTOMATED DIFFERENTIAL 10/07/2024 7:13 PM CDT [facility] NEUTROPHILS % 61.5 % 10/07/2024 7:13 PM CDT [facility] LYMPHOCYTES % 30.1 % 10/07/2024 7:13 PM CDT [facility] MONOCYTES % 5.9 % 10/07/2024 7:13 PM CDT [facility] EOSINOPHILS % 2.3 % 10/07/2024 7:13 PM CDT [facility] BASOPHILS % 0.2 % 10/07/2024 7:13 PM CDT [facility] IMMATURE GRANS % 0.0 % 10/07/2024 7:13 PM CDT [facility] ABS. NEUTROPHILS 5.34 1.60 - 8.30 x10'3/uL 10/07/2024 7:13 PM CDT [facility] ABS. LYMPHOCYTES 2.62 0.80 - 4.70 x10'3/uL 10/07/2024 7:13 PM CDT [facility] ABS. MONOCYTES 0.51 0.00 - 1.50 x10'3/uL 10/07/2024 7:13 PM CDT [facility] ABS. EOSINOPHILS 0.20 0.00 - 0.40 x10'3/uL 10/07/2024 7:13 PM CDT [facility] ABS. BASOPHILS 0.02 0.00 - 0.20 x10'3/uL 10/07/2024 7:13 PM CDT [facility] ABS. IMMATURE GRANULOCYTES 0.00 0.00 - 0.03 x10'3/uL 10/07/2024 7:13 PM CDT [facility] 10/07/2024 3:25 PM CDT Brittny Sandhu DO LABORATORY Final Re sult Performing Organization Address City/[facility]/ZIP Co de Phone Number [facility] [address] [place] [address], [place] [phone] * URINE BACTERIA CULTURE (10/07/2024 2:57 PM CDT) SPEC DESCRIPTION URINE CLEAN CATCH 10/08/2024 2:23 PM CDT [facility] SPECIAL REQUESTS NO SPECIAL REQUEST 10/08/2024 2:23 PM CDT [facility] CULTURE RESULT FEW CONTAMINANTS 01/2025 1:10 PM CDT [facility] URINE SPECIMEN OBTAINED BY CLEAN CATCH PROCEDURE / Unknown 10/07/2024 2:57 PM CDT 10/08/2024 5:32 PM CDT us Brittny Sandhu DO MICROBIOLOGY - GENERAL O RDERABLES Final Result [facility] [address] [place] [address], [place] [phone] * TEST URINE (10/07/2024) URINE HCG TEST NEGATIVE NEGATIVE [facility] Internal Control: VALID VALID [facility] URINE SPECIMEN FROM [employer]RETHRA / Unknown 10/07/2024 Brittny Kg Sandhu DO URINE ORDERABLES Final R esult Performing Organization Address [facility] [place] [address], [place] * (ABNORMAL) URINALYSIS AUTO DIP (10/07/2024) COLOR (U) YELLOW YELLOW [facility] TRANSPARENCY CLOUDY(A) CLEAR [facility] GLUCOSE (U) 500 mg/dl(A) NEGATIVE MG/DL [facility] BILIRUBIN (U) NEGATIVE NEGATIVE [facility] KETONES MG/DL (U) NEGATIVE NEGATIVE MG/DL [facility] SPECIFIC GRAVITY (U) 1.020 1.001 - 1.035 [facility] BLOOD (U) TRACE (Non Hemolyzed, Intact)(A) NEGATIVE [facility] U PH 5.5 5.0 - 9.0 [facility] PROTEIN (U) NEGATIVE NEGATIVE mg/dL [facility] UROBILINOGEN 0.2 0.2 - 1.0 EU/dL = mg/dL [facility] NITRITES NEGATIVE NEGATIVE MG/DL [facility] LEUKOCYTES (U) NEGATIVE NEGATIVE [facility] URINE SPECIMEN OBTAINED BY CLEAN CATCH PROCEDURE / Unknown 10/07/2024 us Brittny Sandhu DO URINE ORDERABLES Final R esult Performing Organization Address [facility]/[place] [address], [place] * IMAGE GENERIC (09/28/2024) Anatomical Region [...] Med Group Scanned SCANNING Final Resu lt [facility] ONBASE from Last 3 Months or Most Recently Relevant to Health Maintenance Insurance Care Teams Sidehand Relationship Specialty Start Date End Date Brittny Sandhu DO [address] [place] [id number] PCP - General FAMILY PRACTICE 06/13/23
--- OUTSIDE RECORDS SUMMARY | 2024-12-13 07:51 | XMS_ITS | Encounter Summary ---
Author Organization [facility] Address [facility] [place] [address] Care Team Providers Care Yard Hand Name Role Phone Gerber Betts DO Primary Care Provider + Encounter Details Date Type Department Care Team (Latest Contact Info) Description 11/19/2024 Results Follow-Up [facility] Family & Internal Medicine [address] [address] Gerber Betts DO [address] [place] [address] [id number] HEMOGLOBIN, GLYCOSYLATED Social History Tobacco Use Types [...] Description 01/06/2025 3:00 PM CDT Office Visit [facility] Family & Internal [address] [address] Gerber Betts DO [address] [place] [address] [place] [address] documented as of this encounter Visit Diagnoses Not on filedocumented in this encounter Care Teams Yard Hand Relationship Specialty Start Date End Date Gerber Betts DO [address] [place] [address] PCP - General FAMILY PRACTICE 06/13/23 documented as of this encounter
[2024-12-13 08:42] LABS: Hematocrit 40.3 % (37.0-47.0); Hemoglobin 13.1 g/dL (12.0-15.0); Immature Granulocyte Percent A 0.3 % (0-0.5); Lymphocytes Absolute Auto 1.91 K/mm3 (0.9-3.2); Mean Corpuscular HGB Conc 32.5 g/dl (32-36); Mean Corpuscular Hemoglobin 25.6 pg (26-34); Mean Corpuscular Volume 78.9 fl (80-100); Nucleated Red Blood Cells Absolute Auto 0.000 K/mm3 (0.0-0.012); Nucleated Red Blood Cells Perc 0.0 % (0.0-0.2); Platelet Count Result 284 k/mm3 (150-375); Red Blood Count 5.11 M/mm3 (4.2-5.4); White Blood Count 6.9 K/mm3 (4.5-10.0)
[2024-12-13 09:05] LABS: Alanine Aminotransferase 26 U/L (6-35); Albumin Level 4.3 g/dL (3.5-5.1); Alkaline Phosphatase 57 U/L (38-126); Anion Gap 10 mmol/L (4-12); Aspartate Amino Transferase 35 U/L (14-36); Bilirubin,Total 0.3 mg/dL (0.2-1.3); Blood Urea Nitrogen 10 mg/dL (7-17); Calcium 9.0 mg/dL (8.4-10.2); Carbon Dioxide 24 mmol/L (22-30); Chloride 103 mmol/L (98-107); Estimated CRCL calculation 171 ml/min; Estimated Glomerular Filt Rate > 60; Glucose 208 mg/dL (65-110); Potassium 4.3 mmol/L (3.4-5.0); Sodium 137 mmol/L (137-145); Total Protein 8.1 g/dL (6.3-8.2)
--- NOTE | 2024-12-13 09:13 | ED.GENADULT ---
HPI - General Adult General Chief complaint: Unspecified Stated complaint: foul smelling discharge after d and c Time Seen by Provider: 12/13/24 07:37 History of Present Illness HPI narrative: Patient is a 24-year-old female who presents ER with foul-smelling vaginal discharge. She was seen here couple days ago and diagnosed with retained products of conception. She has been on cytotec. She reports her bleeding has decreased and she has very minor pelvic cramping. No dysuria or urinary frequency urgency. She is supposed to follow-up with Dr. Wild Leggett today. Related Data Home Medications ?Medication ?Instructions ?Recorded ?Confirmed ?Last Taken ?Type aripiprazole 10 mg tablet 10 mg PO DAILY 03/05/23 12/05/24 12/04/24 History clonidine HCl 0.2 mg tablet 0.2 mg PO HS 03/05/23 12/05/24 12/04/24 History gabapentin 100 mg capsule 100 mg PO TID 03/05/23 12/05/24 12/04/24 History insulin detemir U-100 100 unit/mL 10 unit subcut BID 03/05/23 12/04/24 1 Day Ago History (3 mL) subcutaneous pen ~03/04/23 amoxicillin 500 mg capsule 500 mg PO BID 12/04/24 12/05/24 12/04/24 History Allergies Allergy/AdvReac Type Severity Reaction Status Date / Time morphine Allergy Hives Verified 12/13/24 06:23 Review of Systems Review of Systems: All systems reviewed & are unremarkable except as noted in HPI and below Constitutional: Constitutional: Reports no additional constitutional complaints Cardiovascular: Cardiovascular: Reports no additional cardiovascular complaints Respiratory: Respiratory: Reports no additional respiratory complaints Gastrointestinal: Gastrointestinal: Reports no additional gastrointestinal complaints Genitourinary: Genitourinary: Reports no additional female genitourinary complaints [facility] Past Medical History Medical History Chlamydia Treated (approx 2020) Hidradenitis suppurativa of left axilla ADHD (attention deficit hyperactivity disorder) Bipolar disorder Diabetic peripheral neuropathy ROSIE (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) Surgical History Surgical History No pertinent past surgical history Family History Family History Father Bipolar disorder Schizophrenia Heart failure Mother Age: 37 Schizophrenia Diabetes mellitus Hypertension Bipolar disorder COPD (chronic obstructive pulmonary disease) Chronic kidney disease Social History Social History Social History: She has been involved with her boyfriend for the last 2 years. She has lived with her boyfriend and his family for the last year. 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 She reports that she drinks 5-6 alcoholic beverages every couple of months. Code status: Full code Smoking status: Never smoker Alcohol intake: current Drinks per week: 3 Substance use: former Substance use type: marijuana Last use: 2019 Lack of Transportation: No Lack of Food: Never True Current Housing: I Have Housing Concerned About Future Housing: No Difficulty Paying Gas/Electric Bills: No Difficulty Paying for Meds: No Currently Unemployed: No Education: High School Diploma/GED Difficulty w/ Childcare or Family Care: No Living arrangements: with family Spiritual care concerns: No Exam Narrative: GENERAL: Well-appearing, well-nourished, and in no acute distress. HEAD: Normocephalic, atraumatic. ENT: Mucous membranes moist. CHEST: Clear to auscultation. No respiratory distress. HEART: Regular rate and rhythm. Normal peripheral pulses. ABDOMEN: Soft, nontender, nondistended. : Normal external genitalia. Small amount of bloody mucus like material coming from the cervical os with otherwise normal appearing cervix and no additional discharge. No foul odor noticed. EXTREMITIES: Normal range of motion. No edema. SKIN: Warm, dry, no rash. NEURO: Alert and oriented x3. Course Course Emergency Course: Discussed with Dr. Wild Leggett. Patient can cancel afternoon appointment and start doxycycline b.i.d. and follow up in 1 week. Patient verbalized understanding. Beta-hCG appropriately down trending. White blood cell count downtrending. Discharge. Vital Signs Vital signs: Vital Signs Temperature 97.0 F L 12/13/24 06:27 Pulse Rate 87 12/13/24 06:27 Blood Pressure 130/8 L 12/13/24 06:27 Pulse Oximetry 100 12/13/24 06:27 Oxygen Delivery Room Air 07/11/25 06:27 Temperature 97.0 F L 12/13/24 06:27 Pulse Rate 68 12/13/24 09:32 Respiratory Rate 16 12/13/24 09:32 Blood Pressure 121/64 12/13/24 09:32 Pulse Oximetry 100 12/13/24 09:32 Oxygen Delivery Room Air 12/13/24 06:27 Medical Decision Making Vital Signs Vital Signs: Vital Signs Temperature 97.0 F L 12/13/24 06:27 Pulse Rate 87 12/13/24 06:27 Blood Pressure 130/8 L 12/13/24 06:27 Pulse Oximetry 100 12/13/24 06:27 Oxygen Delivery Room Air 12/13/24 06:27 Temperature 97.0 F L 12/13/24 06:27 Pulse Rate 68 12/13/24 09:32 Respiratory Rate 16 12/13/24 09:32 Blood Pressure 121/64 12/13/24 09:32 Pulse Oximetry 100 12/13/24 09:32 Oxygen Delivery Room Air 12/13/24 06:27 Lab Data 12/13/24 08:31 12/13/24 08:31 Labs: Lab Results 12/13/24 12/13/24 Range/Units 08:30 08:31 WBC 6.9 (4.5-10.0) K/mm3 RBC 5.11 (4.2-5.4) M/mm3 Hgb 13.1 (12.0-15.0) g/dL Hct 40.3 (37.0-47.0) % MCV 78.9 L (80-100) fl MCH 25.6 L (26-34) pg MCHC 32.5 (32-36) g/dl RDW 14.1 (11.5-14.5) % Plt Count 284 (150-375) k/mm3 MPV 11.0 H (7.4-10.4) fl Immature Gran % (Auto) 0.3 (0-0.5) % Neut % (Auto) 60.0 (45.5-73.1) % Lymph % (Auto) 27.8 (18.3-44.2) % Free[place] % (Auto) 6.3 (2.6-8.5) % Eos % (Auto) 5.0 H (0-4.4) % Baso % (Auto) 0.6 (0.2-1.2) % Lymph # (Auto) 1.91 (0.9-3.2) K/mm3 Freeborn # (Auto) 0.4 (0.1-0.6) K/mm3 Eos # (Auto) 0.3 (0-0.3) K/mm3 Baso # (Auto) 0.0 (0.0-0.1) K/mm3 Abs Immat Gran (auto) 0.02 (0.00-0.031) K/mm3 Absolute Neuts (auto) 4.1 (1.3-6.7) K/mm3 Absolute Nucleated RBC 0.000 (0.0-0.012) K/mm3 Nucleated RBC % 0.0 (0.0-0.2) % Sodium 137 (137-145) mmol/L Potassium 4.3 (3.4-5.0) mmol/L Chloride 103 (98-107) mmol/L Carbon Dioxide 24 (22-30) mmol/L Anion Gap 10 (4-12) mmol/L BUN 10 D (7-17) mg/dL Creatinine 0.45 L (0.7-1.0) mg/dL Estim Creat Clear Calc 171 ml/min Estimated GFR > 60 (59 - ) Glucose 208 H (65-110) mg/dL Calcium 9.0 (8.4-10.2) mg/dL Total Bilirubin 0.3 (0.2-1.3) mg/dL AST 35 (14-36) U/L ALT 26 (6-35) U/L Alkaline Phosphatase 57 (38-126) U/L Total Protein 8.1 (6.3-8.2) g/dL Albumin 4.3 (3.5-5.1) g/dL Beta HCG, Quant 168.96 mIU/ML C. trachomatis (PCR) Not detected (NOT DETECTE) N. gonorrhoeae (PCR) Not detected (NOT DETECTE) T. vaginalis (PCR) Not detected (NOT DETECTE) Discharge Plan Discharge Clinical Impression: Vaginal discharge Patient Disposition: Home Condition: Stable Instructions: Vaginal Discharge (ED) Additional Instructions: Return to the emergency department if you develop severe abdominal pain, severe nausea and vomiting to the point where you are unable to keep down fluids, if you develop chest pain or difficulty breathing, blood in your stool, dizziness or fainting, or if you develop any other new or concerning symptoms as these could be signs of more serious medical illness. Try to stay well hydrated. Patient Language: Gabonese Prescriptions: New doxycycline hyclate 100 mg capsule 100 mg PO BID Qty: 14 0RF No Action amoxicillin 500 mg capsule 500 mg PO BID Rx Instructions: With food. hydrocodone-acetaminophen 5-325 mg tablet 1 tablet PO Q4H PRN (Reason: pain) Qty: 14 0RF clonidine HCl 0.2 mg tablet 0.2 mg PO HS gabapentin 100 mg capsule 100 mg PO TID aripiprazole 10 mg tablet 10 mg PO DAILY insulin detemir U-100 100 unit/mL (3 mL) insulin pen 10 unit SUBCUT BID ondansetron 4 mg tablet,disintegrating 4 mg PO Q8H PRN (Reason: nausea and vomiting) Qty: 15 0RF Follow-up/Referrals: Emory Tellez MD [Physician] - 1 Week Alpesh,DO Gerber [Primary Care Provider] - 1 Week
[2024-12-13 09:19] LABS: Beta HCG Quantitative 168.96 mIU/ML
[2024-12-13 09:32] VITALS: BP 121/64; PULSE 68; RESP 16; O2SAT 100
[2024-12-13 09:53] LABS: Trichomonas Vag PCR NOT DETECTED (NOT DETECTE)
[2024-12-13 11:25] VITALS: BP 129/82; PULSE 86; RESP 16; O2SAT 98
== END 2024-12-13 11:25 | disposition home or self-care (01) ==
PROVIDERS: Emergency Provider Emergency Medicine; PCP Student in an Organized Health Care Education/Training Program
DX: N89.8 Other specified noninflammatory disorders of vagina (principal); Z11.3 Encounter for screening for infections with a predominantly sexual mode of transmission; E11.42 Type 2 diabetes mellitus with diabetic polyneuropathy; F90.9 Attention-deficit hyperactivity disorder, unspecified type; F31.9 Bipolar disorder, unspecified; Z79.4 Long term (current) use of insulin; Z79.899 Other long term (current) drug therapy
CPT/HCPCS: 36415; 80053; 84702; 85025; 87070; 87491; 87591; 87661; 99284

== ENCOUNTER 2025-02-07 13:38 | Emergency (ER) | payer OTHER, SELFPAY ==
--- NOTE | ~2025-02-07 | CT_ITS ---
EXAMINATION: CT abdomen pelvis w con DATE: 02/07/2025 16:51 INDICATION: Left flank pain. Nausea and vomiting. TECHNIQUE: Computed tomography (CT) of the abdomen and pelvis was performed without intravenous contrast. The dose-length product was 570.57 mGy-cm. Automated exposure control and iterative reconstruction technique were employed. COMPARISON: CT dated 09/17/2024. FINDINGS: Lung bases unremarkable. Heart size normal. No significant pleural or pericardial effusion. Fatty infiltration of the liver. Gallbladder is contracted. The spleen, pancreas, adrenal glands and kidneys are normal. Nonobstructive bowel gas pattern. No free air or free fluid. No significant vasc ular abnormality. No lymphadenopathy. No acute osseous abnormality. IMPRESSION: 1. No acute abdominal abnormality. Reviewed, dictated and finalized at location O.
[2025-02-07 14:06] VITALS: BP 127/75; PULSE 93; RESP 20; TEMP 36.7; O2SAT 95
--- OUTSIDE RECORDS SUMMARY | 2025-02-07 14:06 | XMS_ITS | Encounter Summary ---
Author Organization [facility] Address [address] [place] [place] [address] Care Team Providers Care Assistance Specialist Name Role Phone Michael Colorado MD Primary Care Provider [phone] Gerber Betts DO Primary Care Provider + Reason for Visit * Reason Onset Date Comments Parent Return Call 04/25/2016 Mom returned your call from last week. 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 Gender Identity Not on file Sexual Orientation Not on file documented as of this encounter Plan of Treatment Upcoming Encounters Date Type Department Care Team ([facility] Contact Info) Description 09/12/2025 2:00 PM CDT Appointment [facility] MATERNAL/ EVALUATION UNIT [address] [place] [phone] documented as of this encounter Visit Diagnoses Not on filedocumented in this encounter Care Teams Assistance Specialist Relationship Specialty Start Date End Date Michael Colorado MD [address] [place] [address] [address] [place] [address] PCP - General Pediatrics 04/20/16 07/17/24 Gerber Betts DO [address] [place] [phone] PCP - General Family Medicine Geriatric Medicine 07/18/24 documented as of this encounter
--- OUTSIDE RECORDS SUMMARY | 2025-02-07 14:06 | XMS_ITS | Clinical Summary ---
Author Organization [facility] Address [address] [place] [address] Care Team Providers Care Corn Breeder Name Role Phone JoshsteveGerber arnold Kg LOGAN Primary Care Provider + Source Comments [facility],non-owned Affiliates and Associated Physician Practices is amultiple site organization consisting of ambulatory clinics and hospital sitesin [place], [place], [place] and [place]. This disclosure is being madepursuant to the Care Everywhere program and may not contain all information available regarding this patient. Last updated 18.[facility] Allergies Active Allergy Reactions Criticality Noted Date [...] 36 mg/g (< 30) Jul 19, 2016 ([place], [place]): first morning voided urine microalbumin/creatinine: 23 ug/g (< 30) Apr 20, 2016 - spot urine microalbumin/creatinine: 36 mg/g (< 30) Jul 19, 2016 ([facility], [place], [place]): first morning voided urine microalbumin/creatinine: 23 ug/g (< 30) Last Assessment & Plan: ? Nonspecific vs early diabetic related microalbuminuria 1. Obtain first morning voided urine specimen for microalbumin/creatinine ratio (laboratory requisition given at the time of the office visit). 2. Expectant observation. 3. Return appointment in three months. Assessment & Plan (06/29/2016 12:53 PM MEDIA THEORIST AND AUTHOR OF): ? Nonspecific vs early diabetic related microalbuminuria 1. Obtain first morning voided urine specimen for microalbumin/creatinine ratio (laboratory requisition given at the time of the office visit). 2. Expectant observation. 3. Return appointment in three months. Controlled type 2 diabetes bisi garcia without complication, without long-term current use of insulin 04/21/2016 Overview (06/29/2016): Apr 15, 2016 - [facility], [address] [place] [id number] Na 143 mmol/L, K 4.4 mmol/L, Cl [...] months. Assessment & Plan (06/29/2016 12:48 PM MEDIA THEORIST AND AUTHOR OF): Good glycemic control. 1. Metformin 1000 mg bid 2. Home glucose monitoring twice daily. 3. Daily physical exercise (60 minutes daily) to promote weight loss 4. Return appointment in three months. Assessment & Plan (04/21/2016 4:13 PM MEDIA THEORIST AND AUTHOR OF): New onset, probably type II, diabetes mellitus. [...] mg/dL (< 130) Jul 19, 2016 - [facility] Cholesterol 151 mg/dL (140-199), triglycerides 235 mg/dL (< 150), HDL- cholesterol 37 mg/dL (> 40), LDL-cholesterol 67 (< 130) cholesterol 261 mg/dL (100-170); triglyceride 925 mg/dL (140-199), HDL- cholesterol 41 mg/dL (< 150), LDL-cholesterol mg/dL (< 130) Jul 19, 2016 - [facility] Cholesterol 151 mg/dL (140-199), triglycerides 235 [...] sweets/fats Assessment & Plan (06/29/2016 12:45 PM MEDIA THEORIST AND AUTHOR OF): 1. Dietary counseling provided 2. Fasting lipid profile (laboratory requisition given at the time of the office visit). .3 Return appointment in three months. Assessment & Plan (04/21/2016 4:13 PM MEDIA THEORIST AND AUTHOR OF): ? Familial 1. Fasting lipid profile 2. [...] BURGOS) Assessment & Plan (06/29/2016 12:46 PM MEDIA THEORIST AND AUTHOR OF): ? Nonspecific elevation vs evolving BURGOS 1. Repeat serum ALT level (laboratory requisition given at the time of the office visit). 3. Expectant observation. 3. Return appointment in three months. Assessment & Plan (04/21/2016 4:14 PM MEDIA THEORIST AND AUTHOR OF): ? BURGOS 1. Repeat serum AST/ALT in one month. 2. Consider referral to Pediatric Gastroenterology Type 2 diabetes mellitus with polyneuropathy Overview (07/16/2024): Apr 15, 2016 - [facility], [address], [place], [place] [address] Na 143 mmol/L, K 4.4 mmol/L, Cl [...] - Elevated blood sugar 04/20/2016 017 Immunizations Immunization Administration Dates Next Due DTaP [...] medical care, and heating? Somewhat hard 07/16/2024 [facility] - Occupational Stress [...] things needed for daily living? No 07/16/2024 [place] Depression Scale Answer Date Recorded [place] Depression Scale Total 11 07/16/2024 The thought [...] time in the past 12 m [facility], were you homeless or living in a half-way (including now)? No 07/16/2024 Estimated Date of Delivery Comme nts Yes 01/26/2025 Based on last me nstrual period of 04/21/2024 Sex and Gender Information Value Date Recorded Sex Assigned at Not on file Legal Sex Female 6:36 AM MEDIA THEORIST AND AUTHOR OF Gender Identity Not on file Sexual Orientation Not on file Last Filed Vital Signs Vital Sign Reading Time Taken Comments Blood Pressure 131/74 09/06/2024 1:42 PM CDT Pulse 98 09/06/2024 1:42 PM CDT Temperature 36.7 C (98 F) 07/24/2024 10:06 AM MEDIA THEORIST AND AUTHOR OF Respiratory Rate 17 07/24/2024 10:06 AM MEDIA THEORIST AND AUTHOR OF Oxygen Saturation 99% 07/24/2024 10:06 AM MEDIA THEORIST AND AUTHOR OF Inhaled Oxygen Concentration - - Weight 87 kg (191 lb 12.8 oz) 09/06/2024 1:42 PM CDT Height 162.6 cm (5' 4) 07/18/2024 10:04 AM MEDIA THEORIST AND AUTHOR OF Body Mass Index 32.92 07/18/2024 10:04 AM MEDIA THEORIST AND AUTHOR OF Plan of Treatment Upcoming Encounters Date Type Department Care Team (Late st Contact Info) Description 09/12/2025 2:00 PM CDT Appointment [facility] MATERNAL/ EVALUATION UNIT [facility] [facility] [place] [address] Health Maintenance Due Date Last Done Comments PNEUMOCOCCAL VACCINE (1 of 1 - PPSV23, PCV20, or PCV21) 2006 07/30/2001, 2000, 2000, Additional history exists HIV SCREENING 2015 CHLAMYDIA/GONORRHEA SCREENING 2016 DIABETES RETINOPATHY SCREENING 06/29/2016 HEPATITIS C SCREENING 04/06/2018 DIABETES-FOOT EXAM WITH MONOFILAMENT 2018 MENINGOCOCCAL (Group B) VACC INE SHARED DECISION-MAKING (2 of 2 - Bexsero SCDM 2-dose series) 07/20/2019 01/17/2019 DIABETES - URINE PROTEIN SCREENING 06/05/20242016, 04/20/2016 OB-ONE HOUR GLUCOSE 10/20/2024 OB-TDAP CURRENT 10/27/2024 06/13/2023, 06/2012 OB-GROUP B STREP SCREEN 12/22/2024 DIABETES-HGB A1C 01/23/2025 07/26/2024, 02/2024, 02/02/2017, Additional history exists INFLUENZA VACCINE (#1) 2025 , 06/13/2023, 03/21/2019, Additional history exists DIABETES-SERUM CREATININE 07/24/20252024, 02/02/2017, [...] Completed 01/17/2019, 12/03/2012 COVID-19 VACCINE Completed 08/14/2024 Respiratory Syncytial Virus (RSV) Vaccine Pt: or over 60 yrs (No Doses Required) Completed Procedures Procedure Name Priority Date/Time Associated Diagnosis Comments PAP IG LB RFLX HPV APTIMA ASCU Routine 09/06/2024 2:14 PM CDT Type 2 diabetes mellitus with polyneuropathy (HCC) HEMOGLOBIN A1C Routine 07/26/2024 1:10 PM MEDIA THEORIST AND AUTHOR OF Controlled type 2 diabetes mellitus without complication, without long-term current use of insulin COMPREHENSIVE METABOLIC PANEL STAT 07/24/2024 10:39 AM MEDIA THEORIST AND AUTHOR OF MICROALB/CREAT RATIO URINE RANDOM PANEL Routine 02/02/2017 2:38 PM CDT Controlled type 2 diabetes mellitus without complication, without long-term current use of insulin from Last 3 Months or Most Recently Relevant to Health Maintenance Results * PAP IG LB RFLX HPV APTIMA ASCU (09/06/2024 2:14 PM CDT) Diagnosis Comment 09/11/2024 11:10 AM CDT [facility] ([facility]) Comment: NEGATIVE FOR INTRAEPITHELIAL LESION OR MALIGNANCY. THIS SPECIMEN WAS RESCREENED PART OF OUR SUTURE POLISHER PROGRAM. Specimen Adequacy Comment 025 11:10 AM CDT [facility] ([facility]) Comment: Satisfactory for evaluation. Endocervical and/or squamous metaplastic cells (endocervical component) are present. Performed by Comment 09/11/2024 11:10 AM CDT [facility] ([facility]) Comment:Riley Cancino, Cytot echnologist ([facility]) QC Reviewed by Comment 09/11/2024 11:10 AM CDT [facility] ([facility]) Comment:Luz Maria guajardo, Patient Support Specialist ([facility]) Comment . 09/11/2024 11:10 AM CDT [facility] ([facility]) Note Comment 09/11/2024 11:10 AM CDT [facility] ([facility]) Comment: The Pap smear is a screening test designed to aid in the detection of premalignant and malignant conditions of the uterine cervix. It is not a diagnostic procedure and should not be used as the sole means of detecting cervical cancer. Both false-positive and false-negative reports do occur. IGLBP CPT Code Automation Comment 09/11/2024 11:10 AM CDT [facility] ([facility]) Comment: This liquid based ThinPrep(R) pap test was screened with the use of an image guided system. Note Comment 09/11/2024 11:10 AM CDT [facility] ([facility]) Comment: The HPV DNA reflex criteria were not met with this specimen result therefore, no HPV testing was performed. Pathology/Cytolo gy ENTIRE ENDOCERVIX / Unknown Collection / Unknown 09/06/2024 2:14 PM CDT 09/06/2024 2:48 PM CDT Narrative [facility] ([facility]) - 09/11/2024 11:10 AM CDT Performed at: 01 - [address] [id number] Pipe Covering Molder: Rebeka Vargas MD, Phone: [phone] Specimen Comment: No. of containers..01 ThinPrep Vial us Jered Solis MD LAB - PATHOLOGY/CYTOLOGY ORDER ELIOT Final Result [facility] ([facility]) [address] [place] [address] * (ABNORMAL) HEMOGLOBIN A1C (07/26/2024 1:10 PM MEDIA THEORIST AND AUTHOR OF) Hemoglobin A1c 8.2(H) <5.7 % 07/26/2024 3:17 PM [facility] Estimated Average Glucose 189 mg/dL 07/26/2024 3:17 PM [facility] Blood BLOOD SPECIMEN / Unknown Venipuncture / Unknown 07/26/2024 1:10 PM MEDIA THEORIST AND AUTHOR OF 07/26/2024 3:01 PM [facility] - 07/26/2024 3:17 PM [facility] HbA1c Interpretation: Normal: < 5.7% Pre-diabetes: 5.7-6.4% [...] LAB - CHEMISTRY ORDERABLES Fin al Result [facility] [address] [place] [address] * (ABNORMAL) COMPREHENSIVE METABOLIC PANEL (07/24/2024 10:39 AM MEDIA THEORIST AND AUTHOR OF) [facility] Glucose 275(H) 70 - 99 mg/dL 07/24/2024 11:03 AM [facility] Sodium 136 136 - 145 mmol/L 07/24/2024 11:03 AM [facility] Potassium 4.4 3.5 - 5.1 mmol/L 07/24/2024 11:03 AM [facility] Chloride 106 98 - 107 mmol/L 07/24/2024 11:03 AM [facility] CO2 21(L) 22 - 29 mmol/L 07/24/2024 11:03 AM [facility] Calcium 8.8 8.4 - 10.4 mg/dL 07/24/2024 11:03 AM [facility] Anion Gap 9 6 - 16 mmol/L 07/24/2024 11:03 AM [facility] BUN 14 5.3 - 18.7 mg/dL 07/24/2024 11:03 AM [facility] Creatinine 0.67 0.57 - 1.11 mg/dL 07/24/2024 11:03 AM [facility] Alkaline Phosphatase 55 40 - 150 U/L 07/24/2024 11:03 AM [facility] ALT 18 0 - 55 U/L 07/24/2024 11:03 AM [facility] AST 21 5 - 34 U/L 07/24/2024 11:03 AM [facility] Protein Total 7.1 6.4 - 8.3 gm/dL 07/24/2024 11:03 AM [facility] Albumin 3.3(L) 3.4 - 5.0 gm/dL 07/24/2024 11:03 AM [facility] Bilirubin Total 0.3 0.2 - 1.2 mg/dL 07/24/2024 11:03 AM [facility] eGFR by CKD-EPI >90 >=90 mL/min/1.7 3 m2 07/24/2024 11:03 AM [facility] Blood BLOOD SPECIMEN / Unknown Venipuncture / Unknown 07/24/2024 10:39 AM MEDIA THEORIST AND AUTHOR OF 07/24/2024 10:48 AM [facility] Andrea SPANNRESIDENTIAL SALES CONSULTANT LAB - CHEMISTRY ORDERA BLES Final Result [facility] [address] [place] [address] * (ABNORMAL) MICROALB/CREAT RATIO URINE RANDOM PANEL (02/02/2017 2:38 PM CDT) Creatinine Urine 103.98 mg/dL 02/03/20 17 4:18 PM CDT [facility] Microalbumin Urine 3.3(H) <1.7 mg/dL 02/02/2017 4:18 PM CDT [facility] Microalbumin/Crea tinine Ratio 32(H) <30 mg/g 02/02/2017 4:18 PM CDT [facility] Urine URINE SPECIMEN OBTAINED BY CLEAN CATCH PROCEDURE / Unknown Collection / Unknown 02/02/2017 2:38 PM CDT 02/02/2017 3:10 PM CDT us Deon Monteiro MD LAB - URINE CHEMISTRY ORDERABLES Final Result [facility] [address] [facility] [place] [address] from Last 3 Months or Most Recently Relevant to Health Maintenance Insurance [facility] SELF PAY NO INSURANCE Member Subscriber Plan / Payer (Ef fective for All Dates) Name:Chitra Arellano Member ID:Not on file Relation to Subscriber:Not on file Name:CHITRA ARELLANO Subscriber ID:Not on file (Home) Address: [address] [place] [phone] Payer ID:Not on file Group ID:Not on file Type:Self Pay Address: [place], [place] [address] Care Teams Corn Breeder Relationship Specialty Start Date End Date Gerber Betts DO [address] [place] [id number] PCP - General Family Medicine Geriatric Medicine 07/18/24
[2025-02-07 14:46] LABS: Add Urine Microscopic? YES; Appearance Urine Turbid (Clear); Glucose Urine UA 3+ mg/dL (Negative); Leukocyte Esterase Ur 1+ LEU/UL (Negative); Need Manual Microscopic Reviewed; Nitrate Urine Negative (Negative); Non Pathogenic Casts 0-2; Specific Grav Ur 1.038 (1.001-1.035)
[2025-02-07 15:06] VITALS: BP 124/84; PULSE 90; RESP 15; O2SAT 97
[2025-02-07] MEDS: SODIUM CHLORIDE 0.9% IV 1,000 ML 999 ML IV CONT (15:51)
[2025-02-07 15:52] VITALS: BP 127/83; PULSE 93; RESP 15; O2SAT 100
[2025-02-07 15:53] LABS: Hematocrit 40.5 % (37.0-47.0); Hemoglobin 13.4 g/dL (12.0-15.0); Immature Granulocyte Percent A 0.2 % (0-0.5); Lymphocytes Absolute Auto 2.49 K/mm3 (0.9-3.2); Mean Corpuscular HGB Conc 33.1 g/dl (32-36); Mean Corpuscular Hemoglobin 26.3 pg (26-34); Mean Corpuscular Volume 79.4 fl (80-100); Nucleated Red Blood Cells Absolute Auto 0.000 K/mm3 (0.0-0.012); Nucleated Red Blood Cells Perc 0.0 % (0.0-0.2); Platelet Count Result 283 k/mm3 (150-375); Red Blood Count 5.10 M/mm3 (4.2-5.4); White Blood Count 9.3 K/mm3 (4.5-10.0)
[2025-02-07 16:03] LABS: Alanine Aminotransferase 60 U/L (6-35); Albumin Level 4.4 g/dL (3.5-5.1); Alkaline Phosphatase 97 U/L (38-126); Anion Gap 11 mmol/L (4-12); Aspartate Amino Transferase 62 U/L (14-36); Bilirubin,Total 0.5 mg/dL (0.2-1.3); Blood Urea Nitrogen 12 mg/dL (7-17); Calcium 9.1 mg/dL (8.4-10.2); Carbon Dioxide 24 mmol/L (22-30); Chloride 99 mmol/L (98-107); Estimated CRCL calculation 168 ml/min; Estimated Glomerular Filt Rate > 60; Glucose 311 mg/dL (65-110); Magnesium 1.8 mg/dL (1.6-2.3); Potassium 4.1 mmol/L (3.4-5.0); Sodium 134 mmol/L (137-145); Total Protein 8.4 g/dL (6.3-8.2)
[2025-02-07 16:17] LABS: Lipase 44 U/L (23-300)
[2025-02-07 16:21] LABS: Beta-Hydroxybutyrate/Acetoacetate 0.12 mmol/L (0.02-0.27)
[2025-02-07 16:30] LABS: Pregnancy On Board Control Positive
--- NOTE | 2025-02-07 17:21 | ED.ABDPAIN ---
HPI - Abdominal Pain General Chief Complaint: Urogenital-Female Stated Complaint: pain in kidneys. unable to urinate Time Seen by Provider: 02/07/25 15:36 Source: patient and RN notes reviewed Mode of arrival: ambulatory Limitations: no limitations History of Present Illness HPI narrative: 24-year-old female presents Express Care complaining of left flank pain, nausea, high blood sugar since this morning. Patient reports over the week she has urinating a lot more than normal. Patient has a history of type 2 diabetes and takes insulin at night along with daily metformin. Patient said she will up to the left flank pain intermittent nausea, no vomiting no diarrhea. Patient denies any blood in her urine reports decreased urine output today. Patient denies any fevers, body aches, chills, or any other symptoms. Related Data Home Medications ?Medication ?Instructions ?Recorded ?Confirmed ?Last Taken ?Type aripiprazole 10 mg tablet 10 mg PO DAILY 03/05/23 12/05/24 12/04/24 History clonidine HCl 0.2 mg tablet 0.2 mg PO HS 03/05/23 12/05/24 12/04/24 History gabapentin 100 mg capsule 100 mg PO TID 03/05/23 12/05/24 12/04/24 History insulin detemir U-100 100 unit/mL 10 unit subcut BID 03/05/23 12/04/24 1 Day Ago History (3 mL) subcutaneous pen ~03/04/23 amoxicillin 500 mg capsule 500 mg PO BID 12/04/24 12/05/24 12/04/24 History Allergies Allergy/AdvReac Type Severity Reaction Status Date / Time morphine Allergy Hives Verified 02/07/25 14:06 Review of Systems Review of Systems: CONSTITUTIONAL: Denies fever, chills, or sweats. EYES: Denies visual changes, redness, or discharge. ENT: Denies rhinorrhea, congestion, sore throat, or otalgia. CARDIOVASCULAR: Denies chest pain, palpitations, or edema. RESPIRATORY: Denies cough or dyspnea. GASTROINTESTINAL: Denies abdominal pain, vomiting, or diarrhea. Positive for nausea. GENITOURINARY: Denies dysuria or hematuria. Positive for decreased urine output. SKIN: Denies rash or itching. MUSCULOSKELETAL: Denies back pain, joint pain, or myalgia. Positive for flank pain. NEUROLOGIC: Denies headache, numbness, or weakness. PSYCHIATRIC: Denies anxiety or depression. All other systems reviewed are negative, except as documented in HPI. [facility] Past Medical History Medical History Chlamydia Treated (approx 2020) Hidradenitis suppurativa of left axilla ADHD (attention deficit hyperactivity disorder) Bipolar disorder Diabetic peripheral neuropathy ROSIE (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) Surgical History Surgical History No pertinent past surgical history Family History Family History Father Bipolar disorder Schizophrenia Heart failure Mother Age: 37 Schizophrenia Diabetes mellitus Hypertension Bipolar disorder COPD (chronic obstructive pulmonary disease) Chronic kidney disease Social History Social History Social History: She has been involved with her boyfriend for the last 2 years. She has lived with her boyfriend and his family for the last year. 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 She reports that she drinks 5-6 alcoholic beverages every couple of months. Code status: Full code Smoking status: Never smoker Alcohol intake: current Drinks per week: 3 Substance use: former Substance use type: marijuana Last use: 2019 Lack of Transportation: No Lack of Food: Never True Current Housing: I Have Housing Concerned About Future Housing: No Difficulty Paying Gas/Electric Bills: No Difficulty Paying for Meds: No Currently Unemployed: No Education: High School Diploma/GED Difficulty w/ Childcare or Family Care: No Living arrangements: with family Spiritual care concerns: No Comments At the time of my signature, I reviewed and agree with the nursing past medical, surgical, social, and family history. There is no relevant family history pertinent to the patient complaint. Exam Narrative: GENERAL: This is a well-nourished, well-developed adult, in no apparent distress. They are non ill-appearing, nontoxic appearing. HEAD: normocephalic, atraumatic. EYES: Sclera clear/white. Conjunctiva normal. Vision is grossly intact. Extraocular movements intact EARS: External ears normal, Hearing grossly intact. NOSE: External nose normal THROAT: Mucous membranes moist, NECK: Neck supple, CARDIOVASCULAR: Regular rate and rhythm without murmurs, gallops, or rubs. RESPIRATORY: Clear to auscultation. Breath sounds equal bilaterally. No wheezes, rales, or rhonchi. GASTROINTESTINAL: Abdomen soft, left upper lower quadrant tender throughout, nondistended. Bowel sounds are active. No hepato-splenomegaly, or palpable masses. No guarding or rigidity. No rebound tenderness. SKIN: warm, Dry, intact with no suspicious lesions or rash, good texture and turgor. NEURO: awake, alert, and oriented to person, place and time. There were no obvious focal neurologic abnormalities. EXTREMITIES: No joint tenderness, effusion, or edema noted. BACK: Nontender without deformity. No CVA tenderness. Course Course Emergency Course: Portions of this record may have been created with voice recognition software Vital Signs Vital signs: Vital Signs Temperature 98.1 F 02/07/25 14:06 Pulse Rate 93 02/07/25 14:06 Respiratory Rate 20 02/07/25 14:06 Blood Pressure 127/75 02/07/25 14:06 Pulse Oximetry 95 02/07/25 14:06 Oxygen Delivery Room Air 02/07/25 14:06 Temperature 97.9 F 02/07/25 18:21 Pulse Rate 87 02/07/25 18:21 Respiratory Rate 15 02/07/25 18:21 Blood Pressure 133/86 02/07/25 18:21 Pulse Oximetry 100 02/07/25 18:21 Oxygen Delivery Room Air 02/07/25 14:06 Reviewed MDM - Abdominal Pain MDM Narrative Medical decision making narrative: Urine shows evidence of urinary tract infection along with starvation ketosis. CBC negative for leukocytosis. Chemistry grossly unremarkable, slightly elevated liver enzymes, normal lipase. Likely related to dehydration. No anion gap normal bicarb. No CVA tenderness. CT abdomen pelvis negative for any acute abdominal pelvic findings. Patient given a 1L of IV fluids, reports feeling better. Bladder scan does not show any evidence of urinary retention. Will send patient home on Bactrim. Blood sugar has improved with IV fluids. Discussed importance of monitoring blood sugars closely at home and have close follow-up with PCP. Strict ER precautions discussed with patient including but not limited to worsening abdominal pain, nausea vomiting, worsening dehydration, uncontrollable blood sugars, fevers, and no urine output, or any serious concerns. Discussed physical exam findings. Advised supportive measures and signs/symptoms to go to the ER. Pt is appropriate for outpt treatment and f/u. Differential Diagnosis Differential diagnosis: Likely abdominal pain and other (Urinary tract infection, dehydration, diabetic ketoacidosis, HHS, kidney stone) Lab Data Attestation: I reviewed the patient's lab results. 02/07/25 15:48 02/07/25 15:48 Labs: Lab Results 02/07/25 02/07/25 02/07/25 Range/Units 14:09 14:28 15:48 WBC 9.3 (4.5-10.0) K/mm3 RBC 5.10 (4.2-5.4) M/mm3 Hgb 13.4 (12.0-15.0) g/dL Hct 40.5 (37.0-47.0) % MCV 79.4 L (80-100) fl MCH 26.3 (26-34) pg MCHC 33.1 (32-36) g/dl RDW 13.5 (11.5-14.5) % Plt Count 283 (150-375) k/mm3 MPV 11.8 H (7.4-10.4) fl Immature Gran % (Auto) 0.2 (0-0.5) % Neut % (Auto) 62.5 (45.5-73.1) % Lymph % (Auto) 26.9 (18.3-44.2) % Wright % (Auto) 6.8 (2.6-8.5) % Eos % (Auto) 3.1 (0-4.4) % Baso % (Auto) 0.5 (0.2-1.2) % Lymph # (Auto) 2.49 (0.9-3.2) K/mm3 Wright # (Auto) 0.6 (0.1-0.6) K/mm3 Eos # (Auto) 0.3 (0-0.3) K/mm3 Baso # (Auto) 0.1 (0.0-0.1) K/mm3 Abs Immat Gran (auto) 0.02 (0.00-0.031) K/mm3 Absolute Neuts (auto) 5.8 (1.3-6.7) K/mm3 Absolute Nucleated RBC 0.000 (0.0-0.012) K/mm3 Nucleated RBC % 0.0 (0.0-0.2) % Sodium 134 L (137-145) mmol/L Potassium 4.1 (3.4-5.0) mmol/L Chloride 99 (98-107) mmol/L Carbon Dioxide 24 (22-30) mmol/L Anion Gap 11 (4-12) mmol/L BUN 12 (7-17) mg/dL Creatinine 0.46 L (0.7-1.0) mg/dL Estim Creat Clear Calc 168 ml/min Estimated GFR > 60 (59 - ) Glucose 311 H (65-110) mg/dL POC Capillary Glucose 356 H (65-105) mg/dl Calcium 9.1 (8.4-10.2) mg/dL Phosphorus 3.9 (2.5-4.5) mg/dL Magnesium 1.8 (1.6-2.3) mg/dL Total Bilirubin 0.5 (0.2-1.3) mg/dL AST 62 H (14-36) U/L ALT 60 H (6-35) U/L Alkaline Phosphatase 97 (38-126) U/L Total Protein 8.4 H (6.3-8.2) g/dL Albumin 4.4 (3.5-5.1) g/dL Lipase 44 (23-300) U/L Beta-Hydroxybutyrate/Acetoacetate 0.12 (0.02-0.27) mmol/L Urine Color Yellow (Yellow) Urine Appearance Turbid H (Clear) Urine pH 6.5 (5.0-9.0) Ur Specific [place] 1.038 H (1.001-1.035) Urine Protein Negative (Negative) mg/dL Urine Glucose (UA) 3+ H (Negative) mg/dL Urine Ketones Trace H (Negative) mg/dL Ur Blood (Man) Negative (Negative) Urine Nitrate Negative (Negative) Urine Bilirubin Negative (Negative) Urine Urobilinogen 0.2 (<2.0) mg/dL Add Ur Microanalysis Reviewed Leukocyte Esterase Rfl 1+ H (Negative) CARLOS/UL Urine RBC 0-2 (0-2) /hpf Urine WBC 51-100 H (0-3) /hpf Ur Squamous Epith Cells Moderate (Few) /hpf Urine Bacteria 1+ H /hpf Urine Casts 0-2 Urine Test Negative 09/05/25 Range/Units 17:25 WBC (4.5-10.0) K/mm3 RBC (4.2-5.4) M/mm3 Hgb (12.0-15.0) g/dL Hct (37.0-47.0) % MCV (80-100) fl MCH (26-34) pg MCHC (32-36) g/dl RDW (11.5-14.5) % Plt Count (150-375) k/mm3 MPV (7.4-10.4) fl Immature Gran % (Auto) (0-0.5) % Neut % (Auto) (45.5-73.1) % Lymph % (Auto) (18.3-44.2) % Wright % (Auto) (2.6-8.5) % Eos % (Auto) (0-4.4) % Baso % (Auto) (0.2-1.2) % Lymph # (Auto) (0.9-3.2) K/mm3 Wright # (Auto) (0.1-0.6) K/mm3 Eos # (Auto) (0-0.3) K/mm3 Baso # (Auto) (0.0-0.1) K/mm3 Abs Immat Gran (auto) (0.00-0.031) K/mm3 Absolute Neuts (auto) (1.3-6.7) K/mm3 Absolute Nucleated RBC (0.0-0.012) K/mm3 Nucleated RBC % (0.0-0.2) % Sodium (137-145) mmol/L Potassium (3.4-5.0) mmol/L Chloride (98-107) mmol/L Carbon Dioxide (22-30) mmol/L Anion Gap (4-12) mmol/L BUN (7-17) mg/dL Creatinine (0.7-1.0) mg/dL Estim Creat Clear Calc ml/min Estimated GFR (59 - ) Glucose (65-110) mg/dL POC Capillary Glucose 221 H (65-105) mg/dl Calcium (8.4-10.2) mg/dL Phosphorus (2.5-4.5) mg/dL Magnesium (1.6-2.3) mg/dL Total Bilirubin (0.2-1.3) mg/dL AST (14-36) U/L ALT (6-35) U/L Alkaline Phosphatase (38-126) U/L Total Protein (6.3-8.2) g/dL Albumin (3.5-5.1) g/dL Lipase (23-300) U/L Beta-Hydroxybutyrate/Acetoacetate (0.02-0.27) mmol/L Urine Color (Yellow) Urine Appearance (Clear) Urine pH (5.0-9.0) Ur Specific [place] (1.001-1.035) Urine Protein (Negative) mg/dL Urine Glucose (UA) (Negative) mg/dL Urine Ketones (Negative) mg/dL Ur Blood (Man) (Negative) Urine Nitrate (Negative) Urine Bilirubin (Negative) Urine Urobilinogen (<2.0) mg/dL Add Ur Microanalysis Leukocyte Esterase Rfl (Negative) CARLOS/UL Urine RBC (0-2) /hpf Urine WBC (0-3) /hpf Ur Squamous Epith Cells (Few) /hpf Urine Bacteria /hpf Urine Casts Urine Test Imaging Data Attestation: I personally reviewed and interpreted this imaging study as follows: Radiologist's impression: ITS Impressions Abdomen/Pelvis CT 02/07/25 17:01 IMPRESSION: 1. No acute abdominal abnormality. Critical Care Time Critical Care Time Critical Care Time: No Discharge Plan Discharge Clinical Impression: Urinary tract infection, Hyperglycemia, Dehydration Patient Disposition: Home Condition: Stable Instructions: Antibiotic Form, Urinary Tract Infection in Women (ED), Diabetic Hyperglycemia (ED) Additional Instructions: Monitor blood sugars closely at home. Lab work is overall reassuring any, there is evidence of urinary tract infection. Please take Bactrim as directed. Finish the course completely even if you start to feel better Drink plenty of fluids. Avoid high sugary foods. Follow-up with PCP in 3-5 days. Return to the ER if you develops severe abdominal pain, fevers, nausea, vomiting, worsening urinary symptoms, no urine output, weakness or any serious concerns. Patient Language: Welsh Prescriptions: New sulfamethoxazole-trimethoprim [Bactrim DS] 800-160 mg tablet 1 tablet PO Q12H 7 Days Qty: 14 0RF No Action amoxicillin 500 mg capsule 500 mg PO BID Rx Instructions: With food. hydrocodone-acetaminophen 5-325 mg tablet 1 tablet PO Q4H PRN (Reason: pain) Qty: 14 0RF doxycycline hyclate 100 mg capsule 100 mg PO BID Qty: 14 0RF clonidine HCl 0.2 mg tablet 0.2 mg PO HS gabapentin 100 mg capsule 100 mg PO TID aripiprazole 10 mg tablet 10 mg PO DAILY insulin detemir U-100 100 unit/mL (3 mL) insulin pen 10 unit SUBCUT BID ondansetron 4 mg tablet,disintegrating 4 mg PO Q8H PRN (Reason: nausea and vomiting) Qty: 15 0RF Follow-up/Referrals: Alpesh,DO Gerber [Primary Care Provider] Time of Disposition: 17:30
[2025-02-07 17:26] VITALS: BP 149/96; PULSE 85; RESP 16; O2SAT 100
[2025-02-07 18:21] VITALS: BP 133/86; PULSE 87; RESP 15; TEMP 36.6; O2SAT 100
== END 2025-02-07 18:23 | disposition home or self-care (01) ==
PROVIDERS: Emergency Medicine; PCP Student in an Organized Health Care Education/Training Program
DX: E11.65 Type 2 diabetes mellitus with hyperglycemia (principal); N39.0 Urinary tract infection, site not specified; E86.0 Dehydration; E11.42 Type 2 diabetes mellitus with diabetic polyneuropathy; F90.9 Attention-deficit hyperactivity disorder, unspecified type; F31.9 Bipolar disorder, unspecified; Z79.84 Long term (current) use of oral hypoglycemic drugs; Z79.4 Long term (current) use of insulin; Z79.899 Other long term (current) drug therapy
CPT/HCPCS: 36415; 74177; 80053; 81001; 81025; 82010; 82948; 83690; 83735; 84100; 85025; 96360; 99284; J7030; Q9967

== ENCOUNTER 2025-03-15 17:52 | Emergency (ER) | payer OTHER, SELFPAY ==
[2025-03-15] VITALS (15 sets, daily range): BP systolic 116–145; BP diastolic 86–101; PULSE 99–111; RESP 14–26; TEMP 37; O2SAT 96–100
--- OUTSIDE RECORDS SUMMARY | 2025-03-15 18:09 | XMS_ITS | Encounter Summary ---
Author Organization [facility] Address [address] [place] [address] Care Team Providers Care Line Worker Name Role Phone Michael Colorado MD Primary Care Provider [phone] Gerber Betts DO Primary Care Provider + Reason for Visit * Reason Onset Date Comments Parent Return Call 04/25/2016 Mom returned your call from last week. Encounter Details Date Type Department Care Team ([facility] Contact Info) Description 04/25/2016 Telephone [facility] Pediatrics - Endocrinology [address] [place] [phone] Deon Monteiro MD [address] [place] [phone] Parent Return Call (Mom returned your call from last week.) Social History Tobacco Use Types Packs/Day Years Used Date Smoking Tobacco: Never Comments No Sex and Gender Information Value Date Recorded Sex Assigned at Not on file Legal Sex Female 6:36 AM [employer] Gender Identity Not on file Sexual Orientation Not on file documented as of this encounter Plan of Treatment Upcoming Encounters Date Type Department Care Team ([facility] Contact Info) Description 09/12/2025 2:00 PM CDT Appointment [facility] [address] [place] [id number] documented as of this encounter Visit Diagnoses Not on filedocumented in this encounter Care Teams Line Worker Relationship Specialty Start Date End Date Michael Colorado MD [address] [place] [address] [address] [place] [address] PCP - General Pediatrics 04/20/16 07/17/24 Gerber Betts DO [address] [place] [id number] PCP - General Family Medicine Geriatric Medicine 07/18/24 documented as of this encounter
--- OUTSIDE RECORDS SUMMARY | 2025-03-15 18:09 | XMS_ITS | Clinical Summary ---
Author Organization [facility] Address [address] [place] [address] Care Team Providers Care Manager Wellness Name Role Phone Gerber Betts Kg LOGAN Primary Care Provider + Allergies Active Allergy Reactions Criticality Noted Date Comments Morphine Hives Medium 04/20/2016 Medications albuterol sulfate HFA 108 (90 Base) MCG/ACT inhaler Inhale 2 puffs into the lungs every 6 (six) hours as needed. Active nystatin (MYCOSTATIN) cream Apply topically 2 (two) times daily. 3 Active EQ PAIN RELIEVER EX ST 500 MG tablet Take 2 tablets (1,000 mg total) by mouth 3 (three) times daily. 5 Active metFORMIN ER (GLUCOPHAGE-XR) 500 MG 24 hr tabletIndications: Uncontrolled type 2 diabetes mellitus with hyperglycemia ([facility] HHS/HCC) Take 2 tablets (1,000 mg total) by mouth daily with breakfast. 180 tablet 5 Active Continuous Glucose Manufacturing Operations Manager (FREESTYLE JEANIE 3 READER) DeviceIndications: Uncontrolled type 2 diabetes mellitus with hyperglycemia ([facility]/HCC HHS/HCC) Check blood sugar three times daily and as needed 1 each 5 Active Continuous Glucose Sensor (FREESTYLE JEANIE 3 SENSOR) MiscIndications:Un controlled type 2 diabetes mellitus with hyperglycemia ([facility] HHS/HCC) Check blood sugar three times daily and as needed 6 each 1 5 Active insulin glargine (LANTUS SOLOSTAR) 100 UNIT/ML injection (PEN) Inject 20 Units into the skin nightly at bedtime. 5 Active Active Problems Problem Noted Date Diagnosed Date Microalbuminuria due to type 2 diabetes mellitus ([facility]) 11/19/2024 Hidradenitis suppurativa 06/13/2023 Bipolar 1 disorder, depressed ([facility]) 06/13/2020 Urine test positive for microalbuminuria 017 Overview (06/13/2023): Apr 20, 2016 - spot urine microalbumin/creatinine: 36 mg/g (< 30) Jul 19, 2016 ([place], [place]): first morning voided urine microalbumin/creatinine: 23 [...] 04/21/2016 Overview (06/13/2023): Apr 15, 2016 - [facility], [address] [place] [id number] Na 143 mmol/L, K 4.4 mmol/L, Cl [...] mg/dL (< 130) Jul 19, 2016 - [facility] Cholesterol 151 mg/dL (140-199), [...] associat ed with type 2 diabetes mellitus ([facility]/HCC [facility]/HCC) 2016 Estimated Date of Delivery Comme nts Yes 07/11/2025 Encounters Date Type Department Care Team Description 02/07/2025 Scan DBL Acquisition INFO SRVCS Scanned, [facility] 12/13/2024 Scan HEALTH INFO SRVCS Scanned, Doc Med [...] 11/19/2024 7:39 AM CDT Plan of Treatment Health Maintenance Due Date Last Done Comments Annual Physical 2003 Chlamydia Screening Females ages 16-24 2016 Meningococcal B Vaccine (2 of 2 - Bexsero SCDM 2-dose series) 07/20/2019 01/17/2019 Hemoglobin A1C 02/19/2025 11/19/2024, 05/0 10/2024, 07/26/2024, Additional history exists Influenza Adult (#1) 2025 08/14/2024, 06/13/2023, 03/21/2019, Additional history exists RSV Immunization or 60+ [...] 08/14/2024 Hepatitis C Completed 10/07/2024 PHQ-2 (Physician [place]) Completed 10/07/2024 Pneumococcal Vaccine: Pediatrics (0 to 5 Years) and At-Risk Patients (6 to 49 Years) Completed 10/07/2024, 07/30/2001, 2000, Additional history exists RSV Immunizations Under 20 Months Aged Out No longer eligible based on patient's age to complete this topic Procedures Procedure Name Priority Date/Time Associated Diagnosis Comments OUTSIDE LAB (SCAN ORDER) 12/13/2024 OUTSIDE LAB (SCAN ORDER) 12/13/2024 OUTSIDE LAB (SCAN ORDER) 12/13/2024 OUTSIDE LAB (SCAN ORDER) 12/13/2024 HEMOGLOBIN, GLYCOSYLATED Routine 11/19/2024 Uncontrolled type 2 diabetes mellitus with hyperglycemia ([facility]/HCC [facility]/HCC) HEPATITIS C ANTIBODY Routine 10/07/2024 3:25 PM CDT Need for hepatitis C screening test LIPID PANEL Routine 10/07/2024 3:25 PM CDT Annual physical exam Screening for lipid disorders Screening for endocrine, metabolic and immunity disorder DIABETIC RETINOPATHY EXAM (NEGATIVE)(SCAN ORDER) Routine 08/28/2023 from Last 3 Months or Most Recently Relevant to Health Maintenance Results * OUTSIDE LAB (SCAN ORDER) (12/13/2024) Only the most recent of4 resultswithin the time period is included. 12/13/2024 [facility] Scanned SCANNING Final Resu lt * HEMOGLOBIN, GLYCOSYLATED (11/19/2024) HGB A1C 9.9 % [facility] 11/19/2024 Gerber Betts DO LABORATORY Final Re sult [facility] [address] [place] [address], * (ABNORMAL) LIPID PANEL (10/07/2024 3:25 PM CDT) CHOLESTEROL 259(H) <200 MG/DL 10/07/2024 7:20 PM CDT [facility] TRIGLYCERIDES 402(H) <150 MG/DL 10/07/2024 7:20 PM CDT [facility] HDL 45 >40 MG/DL 10/07/2024 7:20 PM CDT [facility] LDL-C TRIGLYCERIDES >400 MG/DL, SEE DIRECT LDL REPORT <100 MG/DL 10/07/2024 7:20 PM CDT [facility] VLDL CALCULATION UNABLE TO CALCULATE 5 - 28 MG/DL 10/07/2024 7:20 PM CDT [facility] CHOL/HDL RATIO 5.8(H) 0.0 - 4.0 10/07/2024 7:20 PM CDT [facility] LDL/HDL UNABLE TO CALCULATE 0.41 - 2.13 10/07/2024 7:20 PM CDT [facility] NON HDL CHOLESTEROL 214(H) <140 MG/DL 10/07/2024 7:20 PM CDT [facility] 10/07/2024 3:25 PM CDT Gerber Betts DO LABORATORY Final Re sult Performing Organization Address City/[facility]/ZIP Co de Phone Number [facility] [address] [place] [address], [place] [phone] * HEPATITIS C ANTIBODY (10/07/2024 3:25 PM CDT) HEPATITIS C AB NON-REACTI VE NON-REACT ALICJA 10/07/2024 10:04 PM CDT [facility] Comment: ANTIBODIES TO HCV NOT DETECTED. DOES NOT EXCLUDE THE POSSIBILITY OF EXPOSURE TO HCV. 10/07/2024 3:25 PM CDT Gerber Betts DO LABORATORY Final Re sult Performing Organization Address City/[facility]/ZIP Co de Phone Number [facility] [address] [place] [address], [place] [phone] * DIABETIC RETINOPATHY EXAM (NEGATIVE) (08/28/2023) [facility] Scanned SCANNING Final Resu lt [facility] from Last 3 Months or Most Recently Relevant to Health Maintenance [place] [address] [address] MEDICAID Care Teams Manager Wellness Relationship Specialty Start Date End Date Gerber Betts DO [address] [place] [id number] PCP - General FAMILY PRACTICE 06/13/23
--- OUTSIDE RECORDS SUMMARY | 2025-03-15 18:09 | XMS_ITS | Clinical Summary ---
Author Organization [email or web address] Address [address] [place] [address] Care Team Providers Care Glass Cut Off Tender Name Role Phone JoshsteveGerber arnold Kg LOGAN Primary Care Provider + Source Comments [email or web address],non-owned Affiliates and Associated Physician Practices is amultiple site organization consisting of ambulatory clinics and hospital sitesin [place], [place], [place] and [place]. This disclosure is being madepursuant to the Care Everywhere program and may not contain all information available regarding this patient. Last updated 18.[email or web address] Allergies Active Allergy Reactions Criticality Noted Date [...] 36 mg/g (< 30) Jul 19, 2016 ([place], [place]): first morning voided urine microalbumin/creatinine: 23 ug/g (< 30) Apr 20, 2016 - spot urine microalbumin/creatinine: 36 mg/g (< 30) Jul 19, 2016 ([facility], [place], [place]): first morning voided urine microalbumin/creatinine: 23 ug/g (< 30) Last Assessment & Plan: ? Nonspecific vs early diabetic related microalbuminuria 1. Obtain first morning voided urine specimen for microalbumin/creatinine ratio (laboratory requisition given at the time of the office visit). 2. Expectant observation. 3. Return appointment in three months. Assessment & Plan (06/29/2016 12:53 PM MEDIA MANAGER): ? Nonspecific vs early diabetic related microalbuminuria 1. Obtain first morning voided urine specimen for microalbumin/creatinine ratio (laboratory requisition given at the time of the office visit). 2. Expectant observation. 3. Return appointment in three months. Controlled type 2 diabetes bisi garcia without complication, without long-term current use of insulin 04/21/2016 Overview (06/29/2016): Apr 15, 2016 - [facility], [address] [place] [address] Na 143 mmol/L, K 4.4 mmol/L, Cl [...] Assessment & Plan (06/29/2016 12:48 PM MEDIA MANAGER): Good glycemic control. 1. Metformin 1000 mg bid 2. Home glucose monitoring twice daily. 3. Daily physical exercise (60 minutes daily) to promote weight loss 4. Return appointment in three months. Assessment & Plan (04/21/2016 4:13 PM MEDIA MANAGER): New onset, probably type II, diabetes [...] 130) Jul 19, 2016 - [facility] Cholesterol 151 mg/dL (140-199), triglycerides 235 mg/dL (< 150), HDL- cholesterol 37 mg/dL (> 40), LDL-cholesterol 67 (< 130) cholesterol 261 mg/dL (100-170); triglyceride 925 mg/dL (140-199), HDL- cholesterol 41 mg/dL (< 150), LDL-cholesterol mg/dL (< 130) Jul 19, 2016 - [facility] Cholesterol 151 mg/dL (140-199), triglycerides 235 [...] Assessment & Plan (06/29/2016 12:45 PM MEDIA MANAGER): 1. Dietary counseling provided 2. Fasting lipid profile (laboratory requisition given at the time of the office visit). .3 Return appointment in three months. Assessment & Plan (04/21/2016 4:13 PM MEDIA MANAGER): ? Familial 1. Fasting lipid profile [...] Assessment & Plan (06/29/2016 12:46 PM MEDIA MANAGER): ? Nonspecific elevation vs evolving BURGOS 1. Repeat serum ALT level (laboratory requisition given at the time of the office visit). 3. Expectant observation. 3. Return appointment in three months. Assessment & Plan (04/21/2016 4:14 PM MEDIA MANAGER): ? BURGOS 1. Repeat serum AST/ALT in one month. 2. Consider referral to Pediatric Gastroenterology Type 2 diabetes mellitus with polyneuropathy Overview (07/16/2024): Apr 15, 2016 - [facility], [address], [place], [place] [address] Na 143 mmol/L, K 4.4 mmol/L, Cl [...] medical care, and heating? Somewhat hard 07/16/2024 [facility] Occupat ional Health - Occupational Stress [...] things needed for daily living? No 07/16/2024 [place] Depression Scale Answer Date Recorded [place] Depression Scale Total 11 07/16/2024 The thought [...] any time in the past 12 m [facility], were you homeless or living in a residential (including now)? No 07/16/2024 Estimated Date of Delivery Comme nts Yes 01/26/2025 Based on last me nstrual period of 04/21/2024 Sex and Gender Information Value Date Recorded Sex Assigned at Not on file Legal Sex Female 6:36 AM MEDIA MANAGER Gender Identity Not on file Sexual Orientation Not on file Last Filed Vital Signs Vital Sign Reading Time Taken Comments Blood Pressure 131/74 09/06/2024 1:42 PM CDT Pulse 98 09/06/2024 1:42 PM CDT Temperature 36.7 C (98 F) 07/24/2024 10:06 AM MEDIA MANAGER Respiratory Rate 17 07/24/2024 10:06 AM MEDIA MANAGER Oxygen Saturation 99% 07/24/2024 10:06 AM MEDIA MANAGER Inhaled Oxygen Concentration - - Weight 87 kg (191 lb 12.8 oz) 09/06/2024 1:42 PM CDT Height 162.6 cm (5' 4) 07/18/2024 10:04 AM MEDIA MANAGER Body Mass Index 32.92 07/18/2024 10:04 AM MEDIA MANAGER Plan of Treatment Upcoming Encounters Date Type Department Care Team (Late st Contact Info) Description 09/12/2025 2:00 PM CDT Appointment [facility] MATERNAL/ EVALUATION UNIT [facility]. [address] [place] [address] Health Maintenance Due Date Last Done Comments [...] HEMOGLOBIN A1C Routine 07/26/2024 1:10 PM MEDIA MANAGER Controlled type 2 diabetes mellitus without complication, without long-term current use of insulin COMPREHENSIVE METABOLIC PANEL STAT 07/24/2024 10:39 AM MEDIA MANAGER MICROALB/CREAT RATIO URINE RANDOM PANEL Routine 02/02/2017 2:38 PM CDT Controlled type 2 diabetes mellitus without complication, without long-term current use of insulin from Last 3 Months or Most Recently Relevant to Health Maintenance Results * PAP IG LB RFLX HPV APTIMA ASCU (09/06/2024 2:14 PM CDT) Diagnosis Comment 09/11/2024 11:10 AM CDT [facility] ([facility]) Comment: NEGATIVE FOR INTRAEPITHELIAL LESION OR MALIGNANCY. THIS SPECIMEN WAS RESCREENED PART OF OUR BARIATRIC COORDINATOR PROGRAM. Specimen Adequacy Comment 025 11:10 AM CDT [facility] ([facility]) Comment: Satisfactory for evaluation. Endocervical and/or squamous metaplastic cells (endocervical component) are present. Performed by Comment 09/11/2024 11:10 AM CDT [facility] ([facility]) Comment:Riley Cancino, Cytot echnologist ([facility]) QC Reviewed by Comment 09/11/2024 11:10 AM CDT [facility] ([facility]) Comment:Luz Maria guajardo, Sound Effects Supervisor ([facility]) Comment . 09/11/2024 11:10 AM CDT [facility] ([facility]) Note Comment 09/11/2024 11:10 AM CDT [facility] ([facility]) Comment: The Pap smear is a screening test designed to aid in the detection of premalignant and malignant conditions of the uterine cervix. It is not a diagnostic procedure and should not be used as the sole means of detecting cervical cancer. Both false-positive and false-negative reports do occur. IGLBP CPT Code Automation Comment 09/11/2024 11:10 AM CDT [facility] ([facility]) Comment: This liquid based ThinPrep(R) pap test was screened with the use of an image guided system. Note Comment 09/11/2024 11:10 AM CDT [facility] ([facility]) Comment: The HPV DNA reflex criteria were not met with this specimen result therefore, no HPV testing was performed. Pathology/Cytolo gy ENTIRE ENDOCERVIX / Unknown Collection / Unknown 09/06/2024 2:14 PM CDT 09/06/2024 2:48 PM CDT Narrative [facility] ([facility]) - 09/11/2024 11:10 AM CDT Performed at: 01 - [address] [id number] Multi Care Technician: Rebeka Vargas MD, Phone: [phone] Specimen Comment: No. of containers..01 ThinPrep Vial us Jered Solis MD LAB - PATHOLOGY/CYTOLOGY ORDER ELIOT Final Result [facility] ([facility]) [address] [place] [address] * (ABNORMAL) HEMOGLOBIN A1C (07/26/2024 1:10 PM MEDIA MANAGER) Hemoglobin A1c 8.2(H) <5.7 % 07/26/2024 3:17 PM [facility] Estimated Average Glucose 189 mg/dL 07/26/2024 3:17 PM [facility] Blood BLOOD SPECIMEN / Unknown Venipuncture / Unknown 07/26/2024 1:10 PM MEDIA MANAGER 07/26/2024 3:01 PM [facility] - 07/26/2024 3:17 PM [facility] HbA1c Interpretation: Normal: < 5.7% Pre-diabetes: 5.7-6.4% [...] LAB - CHEMISTRY ORDERABLES Fin al Result [facility] [address] [place] [address] * (ABNORMAL) COMPREHENSIVE METABOLIC PANEL (07/24/2024 10:39 AM MEDIA MANAGER) [facility] Glucose 275(H) 70 - 99 mg/dL 07/24/2024 11:03 AM [facility] Sodium 136 136 - 145 mmol/L 07/24/2024 11:03 AM [facility] Potassium 4.4 3.5 - 5.1 mmol/L 07/24/2024 11:03 AM [facility] Chloride 106 98 - 107 mmol/L 07/24/2024 11:03 AM [facility] CO2 21(L) 22 - 29 mmol/L 07/24/2024 11:03 AM [facility] Calcium 8.8 8.4 - 10.4 mg/dL 07/24/2024 11:03 AM [facility] Anion Gap 9 6 - 16 mmol/L 07/24/2024 11:03 AM [facility] BUN 14 5.3 - 18.7 mg/dL 07/24/2024 11:03 AM [facility] Creatinine 0.67 0.57 - 1.11 mg/dL 07/24/2024 11:03 AM [facility] Alkaline Phosphatase 55 40 - 150 U/L 07/24/2024 11:03 AM [facility] ALT 18 0 - 55 U/L 07/24/2024 11:03 AM [facility] AST 21 5 - 34 U/L 07/24/2024 11:03 AM [facility] Protein Total 7.1 6.4 - 8.3 gm/dL 07/24/2024 11:03 AM [facility] Albumin 3.3(L) 3.4 - 5.0 gm/dL 07/24/2024 11:03 AM [facility] Bilirubin Total 0.3 0.2 - 1.2 mg/dL 07/24/2024 11:03 AM [facility] eGFR by CKD-EPI >90 >=90 mL/min/1.7 3 m2 07/24/2024 11:03 AM [facility] Blood BLOOD SPECIMEN / Unknown Venipuncture / Unknown 07/24/2024 10:39 AM MEDIA MANAGER 07/24/2024 10:48 AM [facility] Andrea SPANNWILLOW MACHINE OPERATOR LAB - CHEMISTRY ORDERA BLES Final Result [facility] [address] [place] [address] * (ABNORMAL) MICROALB/CREAT RATIO URINE RANDOM PANEL (02/02/2017 2:38 PM CDT) Creatinine Urine 103.98 mg/dL 02/03/20 17 4:18 PM CDT [facility] Microalbumin Urine 3.3(H) <1.7 mg/dL 02/02/2017 4:18 PM CDT [facility] Microalbumin/Crea tinine Ratio 32(H) <30 mg/g 02/02/2017 4:18 PM CDT [facility] Urine URINE SPECIMEN OBTAINED BY CLEAN CATCH PROCEDURE / Unknown Collection / Unknown 02/02/2017 2:38 PM CDT 02/02/2017 3:10 PM CDT us Deon Monteiro MD LAB - URINE CHEMISTRY ORDERABLES Final Result [facility] [address] [facility] [place] [address] from Last 3 Months or Most Recently Relevant to Health Maintenance Insurance [facility] SELF PAY NO INSURANCE Member Subscriber Plan / Payer (Ef fective for All Dates) Name:Chitra Arellano Member ID:Not on file Relation to Subscriber:Not on file Name:CHITRA ARELLANO Subscriber ID:Not on file (Home) Address: [address] [place] [phone] Payer ID:Not on file Group ID:Not on file Type:Self Pay Address: [place], [place] [address] Care Teams Glass Cut Off Tender Relationship Specialty Start Date End Date Gerber Betts DO [address] [place] [id number] PCP - General Family Medicine Geriatric Medicine 07/18/24
--- NOTE | 2025-03-15 18:23 | ED.PREGNANCY ---
HPI - General Chief complaint: Recheck/Abnormal Lab/Rx Stated complaint: asking for a blood preg test Time Seen by Provider: 03/15/25 18:03 History of Present Illness HPI Narrative: Patient is a 24-year-old female presents to the ER with request for an hCG blood test. She reports her last menstrual period was on February 20, 2025. Patient reports she has had 2 positive tests at home. She endorses mild lower abdominal cramping and clumpy white discharge. Patient endorses increased urination. She denies any recent fevers, vaginal bleeding, or burning with urination. Patient endorses a history of multiple miscarriages. Related Data Home Medications ?Medication ?Instructions ?Recorded ?Confirmed ?Last Taken ?Type aripiprazole 10 mg tablet 10 mg PO DAILY 03/05/23 12/05/24 12/04/24 History clonidine HCl 0.2 mg tablet 0.2 mg PO HS 03/05/23 12/05/24 12/04/24 History gabapentin 100 mg capsule 100 mg PO TID 03/05/23 12/05/24 12/04/24 History insulin detemir U-100 100 unit/mL 10 unit subcut BID 03/05/23 12/04/24 1 Day Ago History (3 mL) subcutaneous pen ~03/04/23 amoxicillin 500 mg capsule 500 mg PO BID 12/04/24 12/05/24 12/04/24 History Allergies Allergy/AdvReac Type Severity Reaction Status Date / Time morphine Allergy Hives Verified 02/07/25 14:06 Review of Systems Review of Systems: All systems reviewed & are unremarkable except as noted in HPI and below PMFSH Past Medical History Medical History Chlamydia Treated (approx 2020) Hidradenitis suppurativa of left axilla ADHD (attention deficit hyperactivity disorder) Bipolar disorder Diabetic peripheral neuropathy ROSIE (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) Surgical History Surgical History No pertinent past surgical history Family History Family History Father Bipolar disorder Schizophrenia Heart failure Mother Age: 37 Schizophrenia Diabetes mellitus Hypertension Bipolar disorder COPD (chronic obstructive pulmonary disease) Chronic kidney disease Social History Social History Social History: She has been involved with her boyfriend for the last 2 years. She has lived with her boyfriend and his family for the last year. 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 She reports that she drinks 5-6 alcoholic beverages every couple of months. Code status: Full code Smoking status: Never smoker Alcohol intake: current Drinks per week: 3 Substance use: former Substance use type: marijuana Last use: 2019 Lack of Transportation: No Lack of Food: Never True Current Housing: I Have Housing Concerned About Future Housing: No Difficulty Paying Gas/Electric Bills: No Difficulty Paying for Meds: No Currently Unemployed: No Education: High School Diploma/GED Difficulty w/ Childcare or Family Care: No Living arrangements: with family Spiritual care concerns: No Exam Narrative: GENERAL: Well appearing, obese, non-toxic, in no acute distress. HEAD: Normocephalic, atraumatic. NECK: Supple. No adenopathy, no masses. RESPIRATORY: Airway patent, respirations nonlabored. Clear to auscultation bilaterally, no rales, rhonchi, wheezing. CARDIOVASCULAR: Regular rate and rhythm without murmurs, rubs, or gallops. Peripheral pulses 2+ and equal bilaterally. ABDOMINAL: Soft, mildly tender lower quadrants, nondistended, no hepatosplenomegaly. Normoactive BS. MUSCULOSKELETAL: Moves all extremities. Strength/ROM intact without gross deformities. SKIN: Warm, dry, normal color. No rashes. NEURO: A&O X3. Speech clear. Cranial nerves II-XII intact. No ataxic movements. PSYCHIATRIC: Appropriate mood and affect. Normal interaction. Course Vital Signs Vital signs: Vital Signs Temperature 37.0 C 03/15/25 17:58 Pulse Rate 107 H 03/15/25 17:58 Respiratory Rate 16 03/15/25 17:58 Blood Pressure 145/86 H 03/15/25 17:58 Pulse Oximetry 98 03/15/25 17:58 Temperature 37.0 C 03/15/25 17:58 Pulse Rate 101 H 03/15/25 20:30 Respiratory Rate 16 03/15/25 20:30 Blood Pressure 116/101 H 03/15/25 20:01 Pulse Oximetry 100 03/15/25 20:30 MDM - OB/Uterine Contractions MDM Narrative Medical decision making narrative: Patient is a 24-year-old female presents to the ER with request for an hCG blood test. She reports her last menstrual period was on February 20, 2025. Patient reports she has had 2 positive tests at home. She endorses mild lower abdominal cramping and clumpy white discharge. Patient endorses increased urination. She denies any recent fevers, vaginal bleeding, or burning with urination. Patient endorses a history of multiple miscarriages. Labs Ordered: CBC, CMP, beta hCG, urine preg Imaging Ordered: None necessary Medications Ordered: 2 L normal saline IV bolus, 10 units regular insulin Results: Patient's beta hCG was negative. Her chemistry indicates a sodium of 134, carbon dioxide of 20, anion gap of 13, creatinine of 0.41, glucose of 362, ALT of 41, and total protein of 8.5. Patient's urinalysis indicates 3+ urine glucose with no ketones. Diagnosis: Hyperglycemia Patient Education/Shared MDM: Results of lab work shared with patient. She reports at home she generally takes 22 units of insulin at night to keep her blood sugars within normal range. Patient reports her blood sugars have been running around 130 lately. Her blood sugar readings this ER visit are similar to results she has had during past visits here in the ER. Pt's blood sugar readings have decreased nicely with IV fluids and insulin SQ while in the ER. She is requesting to be discharged home and will follow-up with her primary care provider for further evaluation and treatment of her diabetes. Patient strongly advised to maintain hydration status upon discharge. She will not be discharged home with any new prescriptions. Strict return precautions provided. Patient verbalized understanding and is in agreement with plan. Vital signs stable at time of discharge. All questions answered. Differential Diagnosis Differential diagnosis: Likely other (Intrauterine , urinary tract infection, elevated blood glucose, poorly controlled diabetes) Lab Data Attestation: I reviewed the patient's lab results. 03/15/25 18:48 03/15/25 18:48 Labs: Lab Results 03/15/25 03/15/25 03/15/25 Range/Units 18:48 19:01 19:08 WBC 7.9 (4.5-10.0) K/mm3 RBC 5.27 (4.2-5.4) M/mm3 Hgb 13.9 (12.0-15.0) g/dL Hct 41.0 (37.0-47.0) % MCV 77.8 L (80-100) fl MCH 26.4 (26-34) pg MCHC 33.9 (32-36) g/dl RDW 13.2 (11.5-14.5) % Plt Count 270 (150-375) k/mm3 MPV 11.0 H (7.4-10.4) fl Immature Gran % (Auto) 0.1 (0-0.5) % Neut % (Auto) 57.9 (45.5-73.1) % Lymph % (Auto) 29.3 (18.3-44.2) % [place] % (Auto) 8.5 (2.6-8.5) % Eos % (Auto) 3.4 (0-4.4) % Baso % (Auto) 0.8 (0.2-1.2) % Lymph # (Auto) 2.31 (0.9-3.2) K/mm3 [place] # (Auto) 0.7 H (0.1-0.6) K/mm3 Eos # (Auto) 0.3 (0-0.3) K/mm3 Baso # (Auto) 0.1 (0.0-0.1) K/mm3 Abs Immat Gran (auto) 0.01 (0.00-0.031) K/mm3 Absolute Neuts (auto) 4.6 (1.3-6.7) K/mm3 Absolute Nucleated RBC 0.000 (0.0-0.012) K/mm3 Nucleated RBC % 0.0 (0.0-0.2) % Sodium 134 L (137-145) mmol/L Potassium 3.8 (3.4-5.0) mmol/L Chloride 101 (98-107) mmol/L Carbon Dioxide 20 L (22-30) mmol/L Anion Gap 13 H (4-12) mmol/L BUN 10 (7-17) mg/dL Creatinine 0.41 L (0.7-1.0) mg/dL Estim Creat Clear Calc Not Reportable Estimated GFR > 60 (59 - ) Glucose 362 H (65-110) mg/dL POC Capillary Glucose (65-105) mg/dl Calcium 9.5 (8.4-10.2) mg/dL Total Bilirubin 0.4 (0.2-1.3) mg/dL AST 33 (14-36) U/L ALT 41 H (6-35) U/L Alkaline Phosphatase 76 (38-126) U/L Total Protein 8.5 H (6.3-8.2) g/dL Albumin 4.6 (3.5-5.1) g/dL Beta HCG, Quant < 2.39 mIU/ML Urine Color Yellow (Yellow) Urine Appearance Clear (Clear) Urine pH 6.0 (5.0-9.0) Ur Specific [place] 1.036 H (1.001-1.035) Urine Protein Negative (Negative) mg/dL Urine Glucose (UA) 3+ H (Negative) mg/dL Urine Ketones Negative (Negative) mg/dL Ur Blood (Man) Negative (Negative) Urine Nitrate Negative (Negative) Urine Bilirubin Negative (Negative) Urine Urobilinogen 0.2 (<2.0) mg/dL Leukocyte Esterase Rfl Negative (Negative) CARLOS/UL POC Urine HCG, Qual Negative (Negative) Urine Test Negative 03/15/25 Range/Units 20:38 WBC (4.5-10.0) K/mm3 RBC (4.2-5.4) M/mm3 Hgb (12.0-15.0) g/dL Hct (37.0-47.0) % MCV (80-100) fl MCH (26-34) pg MCHC (32-36) g/dl RDW (11.5-14.5) % Plt Count (150-375) k/mm3 MPV (7.4-10.4) fl Immature Gran % (Auto) (0-0.5) % Neut % (Auto) (45.5-73.1) % Lymph % (Auto) (18.3-44.2) % [place] % (Auto) (2.6-8.5) % Eos % (Auto) (0-4.4) % Baso % (Auto) (0.2-1.2) % Lymph # (Auto) (0.9-3.2) K/mm3 [place] # (Auto) (0.1-0.6) K/mm3 Eos # (Auto) (0-0.3) K/mm3 Baso # (Auto) (0.0-0.1) K/mm3 Abs Immat Gran (auto) (0.00-0.031) K/mm3 Absolute Neuts (auto) (1.3-6.7) K/mm3 Absolute Nucleated RBC (0.0-0.012) K/mm3 Nucleated RBC % (0.0-0.2) % Sodium (137-145) mmol/L Potassium (3.4-5.0) mmol/L Chloride (98-107) mmol/L Carbon Dioxide (22-30) mmol/L Anion Gap (4-12) mmol/L BUN (7-17) mg/dL Creatinine (0.7-1.0) mg/dL Estim Creat Clear Calc Estimated GFR (59 - ) Glucose (65-110) mg/dL POC Capillary Glucose 288 H (65-105) mg/dl Calcium (8.4-10.2) mg/dL Total Bilirubin (0.2-1.3) mg/dL AST (14-36) U/L ALT (6-35) U/L Alkaline Phosphatase (38-126) U/L Total Protein (6.3-8.2) g/dL Albumin (3.5-5.1) g/dL Beta HCG, Quant mIU/ML Urine Color (Yellow) Urine Appearance (Clear) Urine pH (5.0-9.0) Ur Specific [place] (1.001-1.035) Urine Protein (Negative) mg/dL Urine Glucose (UA) (Negative) mg/dL Urine Ketones (Negative) mg/dL Ur Blood (Man) (Negative) Urine Nitrate (Negative) Urine Bilirubin (Negative) Urine Urobilinogen (<2.0) mg/dL Leukocyte Esterase Rfl (Negative) CARLOS/UL POC Urine HCG, Qual (Negative) Urine Test Discharge Plan Discharge Clinical Impression: Hyperglycemia due to diabetes mellitus, Dehydration, mild, Not currently Patient Disposition: Home Condition: Stable Instructions: Antibiotic Form, Diabetic Hyperglycemia (ED), Diabetes and Nutrition (ED), Diabetes and Exercise (ED) Additional Instructions: Please return to the ER with any worsening symptoms. Follow-up with primary care provider as soon as possible to further discuss your diabetes. Take all medications as prescribed, including regularly scheduled medications. Patient Language: Vietnamese Prescriptions: No Action amoxicillin 500 mg capsule 500 mg PO BID Rx Instructions: With food. hydrocodone-acetaminophen 5-325 mg tablet 1 tablet PO Q4H PRN (Reason: pain) Qty: 14 0RF doxycycline hyclate 100 mg capsule 100 mg PO BID Qty: 14 0RF sulfamethoxazole-trimethoprim [Bactrim DS] 800-160 mg tablet 1 tablet PO Q12H 7 Days Qty: 14 0RF clonidine HCl 0.2 mg tablet 0.2 mg PO HS gabapentin 100 mg capsule 100 mg PO TID aripiprazole 10 mg tablet 10 mg PO DAILY insulin detemir U-100 100 unit/mL (3 mL) insulin pen 10 unit SUBCUT BID ondansetron 4 mg tablet,disintegrating 4 mg PO Q8H PRN (Reason: nausea and vomiting) Qty: 15 0RF Follow-up/Referrals: Alpesh,DO Gerber [Primary Care Provider] Stand Alone Forms: Work/School Release IP Time of Disposition: 21:38
[2025-03-15 18:56] LABS: Hematocrit 41.0 % (37.0-47.0); Hemoglobin 13.9 g/dL (12.0-15.0); Immature Granulocyte Percent A 0.1 % (0-0.5); Lymphocytes Absolute Auto 2.31 K/mm3 (0.9-3.2); Mean Corpuscular HGB Conc 33.9 g/dl (32-36); Mean Corpuscular Hemoglobin 26.4 pg (26-34); Mean Corpuscular Volume 77.8 fl (80-100); Nucleated Red Blood Cells Absolute Auto 0.000 K/mm3 (0.0-0.012); Nucleated Red Blood Cells Perc 0.0 % (0.0-0.2); Platelet Count Result 270 k/mm3 (150-375); Red Blood Count 5.27 M/mm3 (4.2-5.4); White Blood Count 7.9 K/mm3 (4.5-10.0)
[2025-03-15 19:08] LABS: Add Urine Microscopic? NO; Appearance Urine Clear (Clear); Glucose Urine UA 3+ mg/dL (Negative); Leukocyte Esterase Ur Negative LEU/UL (Negative); Nitrate Urine Negative (Negative); Specific Grav Ur 1.036 (1.001-1.035)
[2025-03-15 19:11] LABS: BEDSIDEPREGUCG Negative (Negative)
[2025-03-15 19:16] LABS: Alanine Aminotransferase 41 U/L (6-35); Albumin Level 4.6 g/dL (3.5-5.1); Alkaline Phosphatase 76 U/L (38-126); Anion Gap 13 mmol/L (4-12); Aspartate Amino Transferase 33 U/L (14-36); Bilirubin,Total 0.4 mg/dL (0.2-1.3); Blood Urea Nitrogen 10 mg/dL (7-17); Calcium 9.5 mg/dL (8.4-10.2); Carbon Dioxide 20 mmol/L (22-30); Chloride 101 mmol/L (98-107); Estimated Glomerular Filt Rate > 60; Glucose 362 mg/dL (65-110); Potassium 3.8 mmol/L (3.4-5.0); Sodium 134 mmol/L (137-145); Total Protein 8.5 g/dL (6.3-8.2)
--- NOTE | 2025-03-15 19:18 | PC.NURSE ---
Report received from CARL Cortez. Assumed care of patient at this time.
[2025-03-15 19:28] LABS: Beta HCG Quantitative < 2.39 mIU/ML
[2025-03-15 19:31] LABS: Pregnancy On Board Control Positive
[2025-03-15] MEDS: SODIUM CHLORIDE 0.9% IV 1,000 ML 999 ML IV CONT ×2 (19:33→20:09)
[2025-03-15] MEDS: INSULIN HUMAN REGULAR (*BKC) 100 UNITS/ML 10 UNITS SUB-Q (20:08)
== END 2025-03-15 21:50 | disposition home or self-care (01) ==
PROVIDERS: Emergency Provider Registered Nurse; PCP Student in an Organized Health Care Education/Training Program
DX: E11.65 Type 2 diabetes mellitus with hyperglycemia (principal); E86.0 Dehydration; E11.42 Type 2 diabetes mellitus with diabetic polyneuropathy; F31.9 Bipolar disorder, unspecified; F90.9 Attention-deficit hyperactivity disorder, unspecified type; Z79.4 Long term (current) use of insulin; Z79.899 Other long term (current) drug therapy
CPT/HCPCS: 36415; 80053; 81003; 81025; 82948; 84702; 85025; 96360; 96361; 99283; J1815; J7030

== ENCOUNTER 2025-03-22 06:45 | Emergency (ER) | payer OTHER, SELFPAY ==
--- OUTSIDE RECORDS SUMMARY | 2025-03-22 06:47 | XMS_ITS | Encounter Summary ---
Author Organization [facility] Address [address] [place] [address] Care Team Providers Care Soot Blower Name Role Phone Michael Colorado MD Primary Care Provider [phone] Gerber Betts DO Primary Care Provider + Reason for Visit * Reason Onset Date Comments Parent Return Call 04/25/2016 Mom returned your call from last week. 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 Gender Identity Not on file Sexual Orientation Not on file documented as of this encounter Plan of Treatment Upcoming Encounters Date Type Department Care Team ([facility] Contact Info) Description 09/12/2025 2:00 PM CDT Appointment [facility]ERNAL/ EVALUATION UNIT [address] [place] [phone] documented as of this encounter Visit Diagnoses Not on filedocumented in this encounter Care Teams Soot Blower Relationship Specialty Start Date End Date Michael Colorado MD [address] [place] [address] 2 [place] [address] PCP - General Pediatrics 04/20/16 07/17/24 Gerber Betts DO [address] [place] [id number] PCP - General Family Medicine Geriatric Medicine 07/18/24 documented as of this encounter
--- OUTSIDE RECORDS SUMMARY | 2025-03-22 06:47 | XMS_ITS | Encounter Summary ---
Author Organization [facility] Address [facility] [place] [address] Care Team Providers Care Foreign Policy Officer Name Role Phone Gerber Betts Primary Care Provider + Reason for Visit * Reason Comments Lab (SCAN) Encounter Details Date Type Department Care Team (Latest Contact Info) Description 03/15/2025 Scan [facility] SRVCS Scanned, Doc Med Group Lab (SCAN) Social History Tobacco Use Types Packs/Day [...] Associated Diagnosis Comments OUTSIDE LAB (SCAN ORDER) 03/15/2025 OUTSIDE LAB (SCAN ORDER) 03/15/2025 OUTSIDE LAB (SCAN ORDER) 03/15/2025 OUTSIDE LAB (SCAN ORDER) 03/15/2025 OUTSIDE LAB (SCAN ORDER) 03/15/2025 documented in this encounter Results * OUTSIDE LAB (SCAN ORDER) (03/15/2025) 03/15/2025 us Doc Med Group Scanned SCANNING Final Resu lt * OUTSIDE LAB (SCAN ORDER) (03/15/2025) 03/15/2025 us Doc Med Group Scanned SCANNING Final Resu lt * OUTSIDE LAB (SCAN ORDER) (03/15/2025) 03/15/2025 us Doc Med Group Scanned SCANNING Final Resu lt * OUTSIDE LAB (SCAN ORDER) (03/15/2025) 03/15/2025 us Doc Med Group Scanned SCANNING Final Resu lt * OUTSIDE LAB (SCAN ORDER) (03/15/2025) 03/15/2025 us Doc Med Group Scanned SCANNING Final Resu lt documented in this encounter Visit Diagnoses Not on filedocumented in this encounter Care Teams Foreign Policy Officer Relationship Specialty Start Date End Date Gerber Betts DO [address] [place] [phone] PCP - General FAMILY PRACTICE 06/13/23 documented as of this encounter
--- OUTSIDE RECORDS SUMMARY | 2025-03-22 06:47 | XMS_ITS | Clinical Summary ---
Author Organization [facility] Address [address] [place] [address] Care Team Providers Care Butadiene Convertor Operator Name Role Phone Gerber Betts Kg LOGAN [...] Uncontrolled type 2 diabetes mellitus with hyperglycemia ([facility]/HCC) Take 2 tablets (1,000 mg total) by mouth daily with breakfast. 180 tablet 5 Active Continuous Glucose Blind Stitch Machine Operator (FREESTYLE JEANIE 3 READER) DeviceIndications: Uncontrolled type 2 diabetes mellitus with hyperglycemia ([facility] H[facility]/HCC) Check blood sugar three times daily and as needed 1 each 5 Active Continuous Glucose Sensor (FREESTYLE JEANIE 3 SENSOR) MiscIndications:Un controlled type 2 diabetes mellitus with hyperglycemia ([facility] H[facility]/HCC) Check blood sugar three times daily and as needed 6 each 1 5 Active insulin glargine (LANTUS SOLOSTAR) 100 UNIT/ML injection (PEN) Inject 20 Units into the skin nightly at bedtime. 5 Active Active Problems Problem Noted Date Diagnosed Date Microalbuminuria due to type 2 diabetes mellitus 11/19/2024 Hidradenitis suppurativa 06/13/2023 Bipolar 1 disorder, depressed 06/13/2020 Urine test positive for microalbuminuria 017 Overview (06/13/2023): Apr 20, 2016 - spot urine microalbumin/creatinine: 36 mg/g (< 30) Jul 19, 2016 ([place], [place]): first morning voided urine microalbumin/creatinine: 23 ug/g (< 30) Last Assessment & Plan: ? Nonspecific vs early diabetic related microalbuminuria 1. Obtain first morning voided urine specimen for microalbumin/creatinine ratio (laboratory requisition given at the time of the office visit). 2. Expectant observation. 3. Return appointment in three months. Type 2 diabetes mellitus with polyneuropathy Overview (06/13/2023): Apr 15, 2016 - [facility], [address] [place] [address] Na 143 mmol/L, K 4.4 mmol/L, Cl [...] associat ed with type 2 diabetes mellitus 2016 Estimated Date of Delivery Comme nts Yes 07/11/2025 Encounters Date Type Department Care Team Description 03/15/2025 Scan TAKO SRVCS Scanned, Doc Med Group Lab (SCAN) 02/07/2025 Scan TAKO SRVCS Scanned, Doc Med Group from Last 3 Months Immunizations Immunization Administration [...] Evaluation 10/07/2025 10/07/2024 Lipid Panel 10/07/2025 10/07/2024, 050 10/2024, 02/02/2017 Cervical Cancer Screening Pap Smear (Age 21 to 29) Every 3 Years 09/07/2027 09/06/2024 Cervical Cancer Screening 09/07/2027 DTaP, Tdap and Td Vaccines (8 - Td or Tdap) 06/13/2033 06/13/2023, 12/03/2012, 12/24/2004, Additional history exists Hepatitis A Vaccines Completed 12/24/2004, 12/24/2004, 01/14/2004 HPV Vaccines Completed 04/16/2014, 09/2012, 12/03/2012 Meningococcal Vaccine Completed 01/17/2019, 013 Hepatitis B Vaccines Completed 08/14/2023, 01/18/2001, 2000, Additional history exists COVID-19 Vaccine Completed 08/14/2024 Hepatitis C Completed 10/07/2024 PHQ-2 (Physician Craig) Completed 10/07/2024 Pneumococcal Vaccine: Pediatrics (0 to [...] ORDER) 03/15/2025 OUTSIDE LAB (SCAN ORDER) 03/15/2025 HEMOGLOBIN, GLYCOSYLATED Routine 11/19/2024 Uncontrolled type 2 diabetes mellitus with hyperglycemia ([facility]/HCC) HEPATITIS C ANTIBODY Routine 10/07/2024 3:25 PM CDT Need for hepatitis C screening test LIPID PANEL Routine 10/07/2024 3:25 PM CDT Annual physical exam Screening for lipid disorders Screening for endocrine, metabolic and immunity disorder DIABETIC RETINOPATHY EXAM (NEGATIVE)(SCAN ORDER) Routine 08/28/2023 from Last 3 Months or Most Recently Relevant to Health Maintenance Results * OUTSIDE LAB (SCAN ORDER) (03/15/2025) Only the most recent of5 resultswithin the time period is included. 03/15/2025 us Doc Med Group Scanned SCANNING Final Resu lt * HEMOGLOBIN, GLYCOSYLATED (11/19/2024) HGB A1C 9.9 % [facility] 11/19/2024 Gerber Betts DO LABORATORY Final Re sult [facility] [address] [place] [address], * (ABNORMAL) LIPID PANEL (10/07/2024 3:25 PM CDT) CHOLESTEROL 259(H) <200 MG/DL 10/07/2024 7:20 PM CDT [facility] TRIGLYCERIDES 402(H) <150 MG/DL 10/07/2024 7:20 PM CDT [facility] HDL 45 >40 MG/DL 10/07/2024 7:20 PM CDT [facility] LDL-C TRIGLYCERIDES >400 MG/DL, SEE DIRECT LDL REPORT <100 MG/DL 10/07/2024 7:20 PM CDT [facility] VLDL CALCULATION UNABLE TO CALCULATE 5 - 28 MG/DL 10/07/2024 7:20 PM CDT [facility] CHOL/HDL RATIO 5.8(H) 0.0 - 4.0 10/07/2024 7:20 PM CDT [facility] LDL/HDL UNABLE TO CALCULATE 0.41 - 2.13 10/07/2024 7:20 PM CDT [facility] NON HDL CHOLESTEROL 214(H) <140 MG/DL 10/07/2024 7:20 PM CDT [facility] 10/07/2024 3:25 PM CDT Gerber Betts DO LABORATORY Final Re sult Performing Organization Address City/[facility]/ZIP Co de Phone Number [facility] [address] [place] [address], [place] [phone] * HEPATITIS C ANTIBODY (10/07/2024 3:25 PM CDT) HEPATITIS C AB NON-REACTI VE NON-REACT ALICJA 10/07/2024 10:[address] [facility] Comment: ANTIBODIES TO HCV NOT DETECTED. DOES NOT EXCLUDE THE POSSIBILITY OF EXPOSURE TO HCV. 10/07/2024 3:25 PM CDT Gerber Betts DO LABORATORY Final Re sult Performing Organization Address City/[facility]/ZIP Co de Phone Number [facility] [address] [place] [address], [place] [phone] * DIABETIC RETINOPATHY EXAM (NEGATIVE) (08/28/2023) us Doc Med Group Scanned SCANNING Final Resu lt [facility] from Last 3 Months or Most Recently Relevant to Health Maintenance [place] [address] [place] [address] MEDICAID Care Teams Butadiene Convertor Operator Relationship Specialty Start Date End Date Gerber Betts DO [address] [place] [phone] PCP - General FAMILY PRACTICE 06/13/23
--- OUTSIDE RECORDS SUMMARY | 2025-03-22 06:47 | XMS_ITS | Clinical Summary ---
Author Organization [facility] Address [address] [place] [address] Care Team Providers Care Top And Seat Cover Fitter Name Role Phone JoshsteveGerber arnold Kg LOGAN Primary Care Provider + Source Comments [facility],non-owned Affiliates and Associated Physician Practices is amultiple site organization consisting of ambulatory clinics and hospital sitesin [place], [place], [place] and [place]. This disclosure is being madepursuant to the Care Everywhere program and may not contain all information available regarding this patient. Last updated 18.[facility] Allergies Active Allergy Reactions Criticality Noted Date [...] 36 mg/g (< 30) Jul 19, 2016 ([place], [place]): first morning voided urine microalbumin/creatinine: 23 ug/g (< 30) Apr 20, 2016 - spot urine microalbumin/creatinine: 36 mg/g (< 30) Jul 19, 2016 ([facility], [place], [place]): first morning voided urine microalbumin/creatinine: 23 ug/g (< 30) Last Assessment & Plan: ? Nonspecific vs early diabetic related microalbuminuria 1. Obtain first morning voided urine specimen for microalbumin/creatinine ratio (laboratory requisition given at the time of the office visit). 2. Expectant observation. 3. Return appointment in three months. Assessment & Plan (06/29/2016 12:53 PM SUPPLY CHAIN SYSTEMS MANAGER): ? Nonspecific vs early diabetic related microalbuminuria 1. Obtain first morning voided urine specimen for microalbumin/creatinine ratio (laboratory requisition given at the time of the office visit). 2. Expectant observation. 3. Return appointment in three months. Controlled type 2 diabetes bisi garcia without complication, without long-term current use of insulin 04/21/2016 Overview (06/29/2016): Apr 15, 2016 - [facility], [address] [place] [address] Na 143 mmol/L, K 4.4 mmol/L, Cl [...] months. Assessment & Plan (06/29/2016 12:48 PM SUPPLY CHAIN SYSTEMS MANAGER): Good glycemic control. 1. Metformin 1000 mg bid 2. Home glucose monitoring twice daily. 3. Daily physical exercise (60 minutes daily) to promote weight loss 4. Return appointment in three months. Assessment & Plan (04/21/2016 4:13 PM SUPPLY CHAIN SYSTEMS MANAGER): New onset, probably type II, diabetes [...] (< 130) Jul 19, 2016 - [facility] Cholesterol 151 mg/dL (140-199), triglycerides 235 mg/dL (< 150), HDL- cholesterol 37 mg/dL (> 40), LDL-cholesterol 67 (< 130) cholesterol 261 mg/dL (100-170); triglyceride 925 mg/dL (140-199), HDL- cholesterol 41 mg/dL (< 150), LDL-cholesterol mg/dL (< 130) Jul 19, 2016 - [facility] Cholesterol 151 mg/dL (140-199), triglycerides [...] sweets/fats Assessment & Plan (06/29/2016 12:45 PM SUPPLY CHAIN SYSTEMS MANAGER): 1. Dietary counseling provided 2. Fasting lipid profile (laboratory requisition given at the time of the office visit). .3 Return appointment in three months. Assessment & Plan (04/21/2016 4:13 PM SUPPLY CHAIN SYSTEMS MANAGER): ? Familial 1. Fasting lipid profile [...] BURGOS) Assessment & Plan (06/29/2016 12:46 PM SUPPLY CHAIN SYSTEMS MANAGER): ? Nonspecific elevation vs evolving BURGOS 1. Repeat serum ALT level (laboratory requisition given at the time of the office visit). 3. Expectant observation. 3. Return appointment in three months. Assessment & Plan (04/21/2016 4:14 PM SUPPLY CHAIN SYSTEMS MANAGER): ? BURGOS 1. Repeat serum AST/ALT in one month. 2. Consider referral to Pediatric Gastroenterology Type 2 diabetes mellitus with polyneuropathy Overview (07/16/2024): Apr 15, 2016 - [facility], [address], [place], [place] [address] Na 143 mmol/L, K 4.4 mmol/L, Cl [...] medical care, and heating? Somewhat hard 07/16/2024 [facility] [place] of Occupat ional Health - Occupational Stress [...] things needed for daily living? No 07/16/2024 Arden Depression Scale Answer Date Recorded Arden Depression Scale Total 11 07/16/2024 The thought [...] on file Legal Sex Female 6:36 AM SUPPLY CHAIN SYSTEMS MANAGER Gender Identity Not on file Sexual Orientation Not on file Last Filed Vital Signs Vital Sign Reading Time Taken Comments Blood Pressure 131/74 09/06/2024 1:42 PM CDT Pulse 98 09/06/2024 1:42 PM CDT Temperature 36.7 C (98 F) 07/24/2024 10:06 AM SUPPLY CHAIN SYSTEMS MANAGER Respiratory Rate 17 07/24/2024 10:06 AM SUPPLY CHAIN SYSTEMS MANAGER Oxygen Saturation 99% 07/24/2024 10:06 AM SUPPLY CHAIN SYSTEMS MANAGER Inhaled Oxygen Concentration - - Weight 87 kg (191 lb 12.8 oz) 09/06/2024 1:42 PM CDT Height 162.6 cm (5' 4) 07/18/2024 10:04 AM SUPPLY CHAIN SYSTEMS MANAGER Body Mass Index 32.92 07/18/2024 10:04 AM SUPPLY CHAIN SYSTEMS MANAGER Plan of Treatment Upcoming Encounters Date Type Department Care Team (Late st Contact Info) Description 09/12/2025 2:00 PM CDT Appointment [facility] MATERNAL/ EVALUATION UNIT [facility] [facility] [place] [address] Health Maintenance Due Date Last Done Comments [...] (HCC) HEMOGLOBIN A1C Routine 07/26/2024 1:10 PM SUPPLY CHAIN SYSTEMS MANAGER Controlled type 2 diabetes mellitus without complication, without long-term current use of insulin COMPREHENSIVE METABOLIC PANEL STAT 07/24/2024 10:39 AM SUPPLY CHAIN SYSTEMS MANAGER MICROALB/CREAT RATIO URINE RANDOM PANEL Routine 02/02/2017 2:38 PM CDT Controlled type 2 diabetes mellitus without complication, without long-term current use of insulin from Last 3 Months or Most Recently Relevant to Health Maintenance Results * PAP IG LB RFLX HPV APTIMA ASCU (09/06/2024 2:14 PM CDT) Diagnosis Comment 09/11/2024 11:10 AM CDT [facility] ([facility]) Comment: NEGATIVE FOR INTRAEPITHELIAL LESION OR MALIGNANCY. THIS SPECIMEN WAS RESCREENED PART OF OUR VP SECURITY PROGRAM. Specimen Adequacy Comment 025 11:10 AM CDT [facility] ([facility]) Comment: Satisfactory for evaluation. Endocervical and/or squamous metaplastic cells (endocervical component) are present. Performed by Comment 09/11/2024 11:10 AM CDT [facility] ([facility]) Comment:Riley Cancino, Cytot echnologist ([facility]) QC Reviewed by Comment 09/11/2024 11:10 AM CDT [facility] ([facility]) Comment:Luz Maria guajardo, Swing Frame Grinder Operator ([facility]) Comment . 09/11/2024 11:10 AM CDT [facility] ([facility]) Note Comment 09/11/2024 11:10 AM CDT [facility] ([facility]) Comment: The Pap smear is a screening test designed to aid in the detection of premalignant and malignant conditions of the uterine cervix. It is not a diagnostic procedure and should not be used as the sole means of detecting cervical cancer. Both false-positive and false-negative reports do occur. IGLBP CPT Code Automation Comment 09/11/2024 11:10 AM CDT [facility] ([facility]) Comment: This liquid based ThinPrep(R) pap test was screened with the use of an image guided system. Note Comment 09/11/2024 11:10 AM CDT [facility] ([facility]) Comment: The HPV DNA reflex criteria were not met with this specimen result therefore, no HPV testing was performed. Pathology/Cytolo gy ENTIRE ENDOCERVIX / Unknown Collection / Unknown 09/06/2024 2:14 PM CDT 09/06/2024 2:48 PM CDT Narrative [facility] ([facility]) - 09/11/2024 11:10 AM CDT Performed at: 01 - [address] [id number] Card Grinder Helper: Rebeka Vargas MD, Phone: [phone] Specimen Comment: No. of containers..01 ThinPrep Vial us Jered Solis MD LAB - PATHOLOGY/CYTOLOGY ORDER ELIOT Final Result [facility] ([facility]) [address] [place] [address] * (ABNORMAL) HEMOGLOBIN A1C (07/26/2024 1:10 PM SUPPLY CHAIN SYSTEMS MANAGER) Hemoglobin A1c 8.2(H) <5.7 % 07/26/2024 3:[address] [facility] Estimated Average Glucose 189 mg/dL 07/26/2024 3:[address] [facility] Blood BLOOD SPECIMEN / Unknown Venipuncture / Unknown 07/26/2024 1:10 PM SUPPLY CHAIN SYSTEMS MANAGER 07/26/2024 3:01 PM [facility] LABORATORY - 07/26/2024 3:17 PM [facility] HbA1c Interpretation: Normal: < 5.7% Pre-diabetes: 5.7-6.4% [...] LAB - CHEMISTRY ORDERABLES Fin al Result [facility] [address] [place] [address] * (ABNORMAL) COMPREHENSIVE METABOLIC PANEL (07/24/2024 10:39 AM SUPPLY CHAIN SYSTEMS MANAGER) [facility] Glucose 275(H) 70 - 99 mg/dL 07/24/2024 11:[address] [facility] Sodium 136 136 - 145 mmol/L 07/24/2024 11:[address] [facility] Potassium 4.4 3.5 - 5.1 mmol/L 07/24/2024 11:[address] [facility] Chloride 106 98 - 107 mmol/L 07/24/2024 11:[address] [facility] CO2 21(L) 22 - 29 mmol/L 07/24/2024 11:[address] [facility] Calcium 8.8 8.4 - 10.4 mg/dL 07/24/2024 11:[address] [facility] Anion Gap 9 6 - 16 mmol/L 07/24/2024 11:[address] [facility] BUN 14 5.3 - 18.7 mg/dL 07/24/2024 11:[address] [facility] Creatinine 0.67 0.57 - 1.11 mg/dL 07/24/2024 11:[address] [facility] Alkaline Phosphatase 55 40 - 150 U/L 07/24/2024 11:[address] [facility] ALT 18 0 - 55 U/L 07/24/2024 11:[address] [facility] AST 21 5 - 34 U/L 07/24/2024 11:[address] [facility] Protein Total 7.1 6.4 - 8.3 gm/dL 07/24/2024 11:[address] [facility] Albumin 3.3(L) 3.4 - 5.0 gm/dL 07/24/2024 11:[address] [facility] Bilirubin Total 0.3 0.2 - 1.2 mg/dL 07/24/2024 11:[address] [facility] eGFR by CKD-EPI >90 >=90 mL/min/1.7 3 m2 07/24/2024 11:[address] [facility] Blood BLOOD SPECIMEN / Unknown Venipuncture / Unknown 07/24/2024 10:39 AM SUPPLY CHAIN SYSTEMS MANAGER 07/24/2024 10:48 AM [facility] Andrea SPANNMULTI OPERATION MACHINE OPERATOR LAB - CHEMISTRY ORDERA BLES Final Result [facility] [address] [place] [address] * (ABNORMAL) MICROALB/CREAT RATIO URINE RANDOM PANEL (02/02/2017 2:38 PM CDT) Creatinine Urine 103.98 mg/dL 02/03/20 17 4:18 PM CDT [facility] Microalbumin Urine 3.3(H) <1.7 mg/dL 02/02/2017 4:18 PM CDT [facility] Microalbumin/Crea tinine Ratio 32(H) <30 mg/g 02/02/2017 4:18 PM CDT [facility] Urine URINE SPECIMEN OBTAINED BY CLEAN CATCH PROCEDURE / Unknown Collection / Unknown 02/02/2017 2:38 PM CDT 02/02/2017 3:10 PM CDT us Deon Monteiro MD LAB - URINE CHEMISTRY ORDERABLES Final Result [facility] [address] [facility] [place] [address] from Last 3 Months or Most Recently Relevant to Health Maintenance Insurance [facility] SELF PAY NO INSURANCE Member Subscriber Plan / Payer (Ef fective for All Dates) Name:Chitra Arellano Member ID:Not on file Relation to Subscriber:Not on file Name:CHITRA ARELLANO Subscriber ID:Not on file (Home) Address: [address] [place] [id number] Payer ID:Not on file Group ID:Not on file Type:Self Pay Address: [place], [place] [address] Care Teams Top And Seat Cover Fitter Relationship Specialty Start Date End Date Gerber Betts DO [address] [place] [phone] PCP - General Family Medicine Geriatric Medicine 07/18/24
[2025-03-22 06:49] VITALS: BP 144/85; PULSE 91; RESP 20; TEMP 37; O2SAT 100
--- NOTE | 2025-03-22 07:34 | ED.GENADULT ---
HPI - General Adult General Chief complaint: Unspecified Stated complaint: wants and flu test Time Seen by Provider: 03/22/25 07:20 History of Present Illness HPI narrative: [age] old female present to the emergency department for evaluation for cold and flu symptoms and also concern for potential . Patient did have 3 positive test at home, she had a negative test here and patient states she is approximately 3 days late. Related Data Home Medications ?Medication ?Instructions ?Recorded ?Confirmed ?Last Taken ?Type aripiprazole 10 mg tablet 10 mg PO DAILY 03/05/23 12/05/24 12/04/24 History clonidine HCl 0.2 mg tablet 0.2 mg PO HS 03/05/23 12/05/24 12/04/24 History gabapentin 100 mg capsule 100 mg PO TID 03/05/23 12/05/24 12/04/24 History insulin detemir U-100 100 unit/mL 10 unit subcut BID 03/05/23 12/04/24 1 Day Ago History (3 mL) subcutaneous pen ~03/04/23 amoxicillin 500 mg capsule 500 mg PO BID 12/04/24 12/05/24 12/04/24 History Allergies Allergy/AdvReac Type Severity Reaction Status Date / Time morphine Allergy Hives Verified 03/22/25 06:52 Review of Systems Review of Systems: All systems reviewed & are unremarkable except as noted in HPI and below PMFSH Past Medical History Medical History Chlamydia Treated (approx 2020) Hidradenitis suppurativa of left axilla ADHD (attention deficit hyperactivity disorder) Bipolar disorder Diabetic peripheral neuropathy ROSIE (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) Surgical History Surgical History No pertinent past surgical history Family History Family History Father Bipolar disorder Schizophrenia Heart failure Mother Age: 37 Schizophrenia Diabetes mellitus Hypertension Bipolar disorder COPD (chronic obstructive pulmonary disease) Chronic kidney disease Social History Social History Social History: She has been involved with her boyfriend for the last 2 years. She has lived with her boyfriend and his family for the last year. 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 She reports that she drinks 5-6 alcoholic beverages every couple of months. Code status: Full code Smoking status: Never smoker Alcohol intake: current Drinks per week: 3 Substance use: former Substance use type: marijuana Last use: 2019 Lack of Transportation: No Lack of Food: Never True Current Housing: I Have Housing Concerned About Future Housing: No Difficulty Paying Gas/Electric Bills: No Difficulty Paying for Meds: No Currently Unemployed: No Education: High School Diploma/GED Difficulty w/ Childcare or Family Care: No Living arrangements: with family Spiritual care concerns: No Exam Narrative: APPEARANCE: Well appearing, no pain, no distress, well-nourished. HEAD: normocephalic, atraumatic. EYES: PERRLA/EOMI, conjunctivae clear. NOSE: Normal no drainage EARS:TMS clear with good light reflex. THROAT: Pharynx clear, no exudate. NECK: Supple. No adenopathy, no masses. RESPIRATORY: Airway patent, respirations nonlabored. Clear to auscultation bilaterally, no rales, rhonchi, wheezing. CARDIOVASCULAR: Regular rate and rhythm without murmurs rubs or gallops. ABDOMINAL: Soft, nontender, nondistended, normal bowel sounds MUSCULOSKELETAL: Moves all extremities. Strength/ROM intact, No edema, No calf tenderness. NEURO: Alert. Cranial nerves II through XII intact. Good gait. Good coordination SKIN: Warm, dry. Normal Color Genital exam: No lesions noted Course Vital Signs Vital signs: Vital Signs Temperature 98.6 F 03/22/25 06:49 Pulse Rate 91 03/22/25 06:49 Respiratory Rate 20 03/22/25 06:49 Blood Pressure 144/85 H 03/22/25 06:49 Pulse Oximetry 100 03/22/25 06:49 Oxygen Delivery Room Air 03/22/25 06:49 Temperature 98.6 F 03/22/25 06:49 Pulse Rate 81 03/22/25 08:53 Respiratory Rate 15 03/22/25 08:53 Blood Pressure 138/89 03/22/25 08:53 Pulse Oximetry 99 03/22/25 08:53 Oxygen Delivery Room Air 03/22/25 06:49 Medical Decision Making MDM Narrative Medical decision making narrative: 24-year-old female presents emergency department for evaluation for cold-like symptoms and for a test. Bedside urine present test was negative. Patient was negative for COVID flu RSV and influenza. Patient's lungs were clear to auscultation. Low concern for pneumonia. Patient was updated results of workup. Patient was encouraged of close follow-up with primary care physician. Differential Diagnosis Differential Diagnosis: Redness, COVID, RSV influenza, pneumonia, viral syndrome Vital Signs Vital Signs: Vital Signs Temperature 98.6 F 03/22/25 06:49 Pulse Rate 91 03/22/25 06:49 Respiratory Rate 20 03/22/25 06:49 Blood Pressure 144/85 H 03/22/25 06:49 Pulse Oximetry 100 03/22/25 06:49 Oxygen Delivery Room Air 03/22/25 06:49 Temperature 98.6 F 03/22/25 06:49 Pulse Rate 81 03/22/25 08:53 Respiratory Rate 15 03/22/25 08:53 Blood Pressure 138/89 03/22/25 08:53 Pulse Oximetry 99 03/22/25 08:53 Oxygen Delivery Room Air 03/22/25 06:49 Lab Data Labs: Lab Results 03/22/25 03/22/25 Range/Units 07:21 08:07 POC Urine HCG, Qual Negative (Negative) Influenza A (RT-PCR) Negative (Negative) Influenza B (RT-PCR) Negative (Negative) RSV (RT-PCR) Negative (Negative) SARS-CoV-2 RNA (RT-PCR) Negative (Negative) Discharge Plan Discharge Clinical Impression: Flu-like symptoms Patient Disposition: Home Condition: Stable Instructions: Antibiotic Form, Viral Syndrome (ED) Additional Instructions: You were negative for influenza RSV and for COVID and your test was also negative. Have close follow-up with your primary care physician. Tylenol and ibuprofen for body aches and fatigue. Drink plenty of fluids. Patient Language: Sinhala Prescriptions: No Action amoxicillin 500 mg capsule 500 mg PO BID Rx Instructions: With food. hydrocodone-acetaminophen 5-325 mg tablet 1 tablet PO Q4H PRN (Reason: pain) Qty: 14 0RF doxycycline hyclate 100 mg capsule 100 mg PO BID Qty: 14 0RF sulfamethoxazole-trimethoprim [Bactrim DS] 800-160 mg tablet 1 tablet PO Q12H 7 Days Qty: 14 0RF clonidine HCl 0.2 mg tablet 0.2 mg PO HS gabapentin 100 mg capsule 100 mg PO TID aripiprazole 10 mg tablet 10 mg PO DAILY insulin detemir U-100 100 unit/mL (3 mL) insulin pen 10 unit SUBCUT BID ondansetron 4 mg tablet,disintegrating 4 mg PO Q8H PRN (Reason: nausea and vomiting) Qty: 15 0RF Follow-up/Referrals: Alpesh,DO Gerber [Primary Care Provider]
--- OUTSIDE RECORDS SUMMARY | 2025-03-22 07:36 | XMS_ITS | Encounter Summary ---
Author Organization [facility] Address [address] [place] [address] Care Team Providers Care Jacquard Twine Polisher Operator Name Role Phone Michael Colorado MD Primary Care Provider [phone] Gerber Betts DO Primary Care Provider + Reason for Visit * Reason Onset Date Comments Parent Return Call 04/25/2016 Mom returned your call from last week. Encounter Details Date Type Department Care Team ([facility] Contact Info) Description 04/25/2016 Telephone [facility] Pediatrics - Endocrinology [address] [place] [id number] Deon Monteiro MD [address] [place] [phone] Parent Return Call (Mom returned your call from last week.) Social History Tobacco Use Types Packs/Day Years Used Date Smoking Tobacco: Never Comments No Sex and Gender Information Value Date Recorded Sex Assigned at Not on file Legal Sex Female 6:36 AM CLOTH BLEACHING RANGE TENDER Gender Identity Not on file Sexual Orientation Not on file documented as of this encounter Plan of Treatment Upcoming Encounters Date Type Department Care Team ([facility] Contact Info) Description 09/12/2025 2:00 PM CDT Appointment [facility]/ [facility]UATION UNIT [address] [place] [phone] documented as of this encounter Visit Diagnoses Not on filedocumented in this encounter Care Teams Jacquard Twine Polisher Operator Relationship Specialty Start Date End Date Michael Colorado MD [address] [place] [address] [address] [place] [address] PCP - General Pediatrics 04/20/16 07/17/24 Gerber Betts DO [address] [place] [id number] PCP - General Family Medicine Geriatric Medicine 07/18/24 documented as of this encounter
--- OUTSIDE RECORDS SUMMARY | 2025-03-22 07:36 | XMS_ITS | Clinical Summary ---
Author Organization [facility] Address [address] [place] [address] Care Team Providers Care Heating And Ventilating Drafter Name Role Phone Gerber Betts Kg LOGAN [...] Uncontrolled type 2 diabetes mellitus with hyperglycemia ([facility] HHS/HCC) Take 2 tablets (1,000 mg total) by mouth daily with breakfast. 180 tablet 5 Active Continuous Glucose Laminated Plastics Assembler And Gluer (FREESTYLE JEANIE 3 READER) DeviceIndications: Uncontrolled type 2 diabetes mellitus with hyperglycemia ([facility] HHS/HCC) Check blood sugar three times daily and as needed 1 each 5 Active Continuous Glucose Sensor (FREESTYLE JEANIE 3 SENSOR) MiscIndications:Un controlled type 2 diabetes mellitus with hyperglycemia ([facility] HHS/HCC) Check blood sugar three [...] 36 mg/g (< 30) Jul 19, 2016 ([place], [place]): first morning voided urine microalbumin/creatinine: 23 ug/g (< 30) Last Assessment & Plan: ? Nonspecific vs early diabetic related microalbuminuria 1. Obtain first morning voided urine specimen for microalbumin/creatinine ratio (laboratory requisition given at the time of the office visit). 2. Expectant observation. 3. Return appointment in three months. Type 2 diabetes mellitus with polyneuropathy Overview (06/13/2023): Apr 15, 2016 - [facility], [address] [place] [id number] Na 143 mmol/L, K 4.4 mmol/L, Cl [...] mg/dL (< 130) Jul 19, 2016 - [facility] Cholesterol 151 mg/dL (140-199), triglycerides 235 [...] Type Department Care Team Description 03/15/2025 Scan Polyera SRVCS Scanned, [facility] (SCAN) 02/07/2025 Scan Polyera SRVCS Scanned, [facility] from Last [...] 08/14/2024 Hepatitis C Completed 10/07/2024 PHQ-2 (Physician [place]) Completed 10/07/2024 Pneumococcal Vaccine: Pediatrics (0 to [...] Uncontrolled type 2 diabetes mellitus with hyperglycemia ([facility]/HCC) HEPATITIS C ANTIBODY Routine 10/07/2024 3:25 PM [...] HEMOGLOBIN, GLYCOSYLATED (11/19/2024) HGB A1C 9.9 % [facility] 11/19/2024 Gerber Betts DO LABORATORY Final Re sult [facility] [address] [place] [address], * (ABNORMAL) LIPID PANEL (10/07/2024 3:25 PM CDT) CHOLESTEROL 259(H) <200 MG/DL 10/07/2024 7:20 PM CDT [facility] TRIGLYCERIDES 402(H) <150 MG/DL 10/07/2024 7:20 PM CDT [facility] HDL 45 >40 MG/DL 10/07/2024 7:20 PM CDT [facility] LDL-C TRIGLYCERIDES >400 MG/DL, SEE DIRECT LDL REPORT <100 MG/DL 10/07/2024 7:20 PM CDT [facility] VLDL CALCULATION UNABLE TO CALCULATE 5 - 28 MG/DL 10/07/2024 7:20 PM CDT [facility] CHOL/HDL RATIO 5.8(H) 0.0 - 4.0 10/07/2024 7:20 PM CDT [facility] LDL/HDL UNABLE TO CALCULATE 0.41 - 2.13 10/07/2024 7:20 PM CDT [facility] NON HDL CHOLESTEROL 214(H) <140 MG/DL 10/07/2024 7:20 PM CDT [facility] 10/07/2024 3:25 PM CDT Gerber Betts DO LABORATORY Final Re sult Performing Organization Address City/[facility]/ZIP Co de Phone Number [facility] [address] [place] [address], [place] [phone] * HEPATITIS C ANTIBODY (10/07/2024 3:25 PM CDT) HEPATITIS C AB NON-REACTI VE NON-REACT ALICJA 10/07/2024 10:04 PM CDT [facility] Comment: ANTIBODIES TO HCV NOT DETECTED. DOES NOT EXCLUDE THE POSSIBILITY OF EXPOSURE TO HCV. 10/07/2024 3:25 PM CDT Gerber Betts DO LABORATORY Final Re sult Performing Organization Address City/[facility]/ZIP Co de Phone Number [facility] [address] [place] [address], [place] [phone] * DIABETIC RETINOPATHY EXAM (NEGATIVE) (08/28/2023) us [facility] Scanned SCANNING Final Resu lt [facility] ONBASE from Last 3 Months or Most Recently Relevant to Health Maintenance [place] [place] [address] MEDICA[place] Care Teams Heating And Ventilating Drafter Relationship Specialty Start Date End Date Gerber Betts DO [address] [place] [id number] PCP - General FAMILY PRACTICE 06/13/23
--- OUTSIDE RECORDS SUMMARY | 2025-03-22 07:36 | XMS_ITS | Encounter Summary ---
Author Organization [facility] Address [facility] [place] [address] Care Team Providers Care Geographic Information Scientist Name Role Phone Gerber Betts Primary Care [...] on filedocumented in this encounter Care Teams Geographic Information Scientist Relationship Specialty Start Date End Date Gerber Betts DO [address] [place] [id number] PCP - General FAMILY PRACTICE 06/13/23 documented as of this encounter
--- OUTSIDE RECORDS SUMMARY | 2025-03-22 07:36 | XMS_ITS | Clinical Summary ---
Author Organization [facility] Address [address] [place] [address] Care Team Providers Care Furniture Repair Technician Name Role Phone JoshsteveGerber arnold Kg LOGAN Primary Care Provider + Source Comments [facility],non-owned Affiliates and Associated Physician Practices is amultiple site organization consisting of ambulatory clinics and hospital sitesin [place], [place], [place] and [place]. This disclosure is being madepursuant to the Care Everywhere program and may not contain all information available regarding this patient. Last updated 18.[facility] Allergies Active Allergy Reactions Criticality Noted Date [...] 36 mg/g (< 30) Jul 19, 2016 ([place], [place]): first morning voided urine microalbumin/creatinine: 23 ug/g (< 30) Apr 20, 2016 - spot urine microalbumin/creatinine: 36 mg/g (< 30) Jul 19, 2016 ([facility], [place], [place]): first morning voided urine microalbumin/creatinine: 23 ug/g (< 30) Last Assessment & Plan: ? Nonspecific vs early diabetic related microalbuminuria 1. Obtain first morning voided urine specimen for microalbumin/creatinine ratio (laboratory requisition given at the time of the office visit). 2. Expectant observation. 3. Return appointment in three months. Assessment & Plan (06/29/2016 12:53 PM HEAVY DUTY PRESS OPERATOR): ? Nonspecific vs early diabetic related microalbuminuria 1. Obtain first morning voided urine specimen for microalbumin/creatinine ratio (laboratory requisition given at the time of the office visit). 2. Expectant observation. 3. Return appointment in three months. Controlled type 2 diabetes bisi garcia without complication, without long-term current use of insulin 04/21/2016 Overview (06/29/2016): Apr 15, 2016 - [facility], [address] [place] [address] Na 143 mmol/L, K 4.4 mmol/L, Cl [...] months. Assessment & Plan (06/29/2016 12:48 PM HEAVY DUTY PRESS OPERATOR): Good glycemic control. 1. Metformin 1000 mg bid 2. Home glucose monitoring twice daily. 3. Daily physical exercise (60 minutes daily) to promote weight loss 4. Return appointment in three months. Assessment & Plan (04/21/2016 4:13 PM HEAVY DUTY PRESS OPERATOR): New onset, probably type II, diabetes [...] 130) Jul 19, 2016 - [facility] Cholesterol 151 mg/dL (140-199), triglycerides 235 mg/dL (< 150), HDL- cholesterol 37 mg/dL (> 40), LDL-cholesterol 67 (< 130) cholesterol 261 mg/dL (100-170); triglyceride 925 mg/dL (140-199), HDL- cholesterol 41 mg/dL (< 150), LDL-cholesterol mg/dL (< 130) Jul 19, 2016 - [facility] Cholesterol 151 mg/dL (140-199), triglycerides [...] sweets/fats Assessment & Plan (06/29/2016 12:45 PM HEAVY DUTY PRESS OPERATOR): 1. Dietary counseling provided 2. Fasting lipid profile (laboratory requisition given at the time of the office visit). .3 Return appointment in three months. Assessment & Plan (04/21/2016 4:13 PM HEAVY DUTY PRESS OPERATOR): ? Familial 1. Fasting lipid profile [...] BURGOS) Assessment & Plan (06/29/2016 12:46 PM HEAVY DUTY PRESS OPERATOR): ? Nonspecific elevation vs evolving BURGOS 1. Repeat serum ALT level (laboratory requisition given at the time of the office visit). 3. Expectant observation. 3. Return appointment in three months. Assessment & Plan (04/21/2016 4:14 PM HEAVY DUTY PRESS OPERATOR): ? BURGOS 1. Repeat serum AST/ALT in one month. 2. Consider referral to Pediatric Gastroenterology Type 2 diabetes mellitus with polyneuropathy Overview (07/16/2024): Apr 15, 2016 - [facility], [address], [place], [place] [address] Na 143 mmol/L, K 4.4 mmol/L, Cl [...] medical care, and heating? Somewhat hard 07/16/2024 [facility] [place] of Occupat ional Health - Occupational Stress [...] things needed for daily living? No 07/16/2024 [place] Depression Scale Answer Date Recorded [place] Depression Scale Total 11 07/16/2024 The thought [...] any time in the past 12 m [facility], were you homeless or living in a [facility] (including now)? No 07/16/2024 Estimated Date of Delivery Comme nts Yes 01/26/2025 Based on last me nstrual period of 04/21/2024 Sex and Gender Information Value Date Recorded Sex Assigned at Not on file Legal Sex Female 6:36 AM HEAVY DUTY PRESS OPERATOR Gender Identity Not on file Sexual Orientation Not on file Last Filed Vital Signs Vital Sign Reading Time Taken Comments Blood Pressure 131/74 09/06/2024 1:42 PM CDT Pulse 98 09/06/2024 1:42 PM CDT Temperature 36.7 C (98 F) 07/24/2024 10:06 AM HEAVY DUTY PRESS OPERATOR Respiratory Rate 17 07/24/2024 10:06 AM HEAVY DUTY PRESS OPERATOR Oxygen Saturation 99% 07/24/2024 10:06 AM HEAVY DUTY PRESS OPERATOR Inhaled Oxygen Concentration - - Weight 87 kg (191 lb 12.8 oz) 09/06/2024 1:42 PM CDT Height 162.6 cm (5' 4) 07/18/2024 10:04 AM HEAVY DUTY PRESS OPERATOR Body Mass Index 32.92 07/18/2024 10:04 AM HEAVY DUTY PRESS OPERATOR Plan of Treatment Upcoming Encounters Date Type Department Care Team (Late st Contact Info) Description 09/12/2025 2:00 PM CDT Appointment [facility] MATERNAL/ EVALUATION UNIT [facility] [facility] [place] [address] Health Maintenance Due Date Last Done Comments [...] (HCC) HEMOGLOBIN A1C Routine 07/26/2024 1:10 PM HEAVY DUTY PRESS OPERATOR Controlled type 2 diabetes mellitus without complication, without long-term current use of insulin COMPREHENSIVE METABOLIC PANEL STAT 07/24/2024 10:39 AM HEAVY DUTY PRESS OPERATOR MICROALB/CREAT RATIO URINE RANDOM PANEL Routine 02/02/2017 2:38 PM CDT Controlled type 2 diabetes mellitus without complication, without long-term current use of insulin from Last 3 Months or Most Recently Relevant to Health Maintenance Results * PAP IG LB RFLX HPV APTIMA ASCU (09/06/2024 2:14 PM CDT) Diagnosis Comment 09/11/2024 11:10 AM CDT [facility] ([facility]) Comment: NEGATIVE FOR INTRAEPITHELIAL LESION OR MALIGNANCY. THIS SPECIMEN WAS RESCREENED PART OF OUR BAND TOP MAKER PROGRAM. Specimen Adequacy Comment 025 11:10 AM CDT [facility] ([facility]) Comment: Satisfactory for evaluation. Endocervical and/or squamous metaplastic cells (endocervical component) are present. Performed by Comment 09/11/2024 11:10 AM CDT [facility] ([facility]) Comment:Riley Cancino, Cytot echnologist ([facility]) QC Reviewed by Comment 09/11/2024 11:10 AM CDT [facility] ([facility]) Comment:Luz Maria guajardo, General Magistrate ([facility]) Comment . 09/11/2024 11:10 AM CDT [facility] ([facility]) Note Comment 09/11/2024 11:10 AM CDT [facility] ([facility]) Comment: The Pap smear is a screening test designed to aid in the detection of premalignant and malignant conditions of the uterine cervix. It is not a diagnostic procedure and should not be used as the sole means of detecting cervical cancer. Both false-positive and false-negative reports do occur. IGLBP CPT Code Automation Comment 09/11/2024 11:10 AM CDT [facility] ([facility]) Comment: This liquid based ThinPrep(R) pap test was screened with the use of an image guided system. Note Comment 09/11/2024 11:10 AM CDT [facility] ([facility]) Comment: The HPV DNA reflex criteria were not met with this specimen result therefore, no HPV testing was performed. Pathology/Cytolo gy ENTIRE ENDOCERVIX / Unknown Collection / Unknown 09/06/2024 2:14 PM CDT 09/06/2024 2:48 PM CDT Narrative [facility] ([facility]) - 09/11/2024 11:10 AM CDT Performed at: 01 - [address] [id number] Land Agent: Rebeka Vargas MD, Phone: [phone] Specimen Comment: No. of containers..01 ThinPrep Vial us Jered Solis MD LAB - PATHOLOGY/CYTOLOGY ORDER ELIOT Final Result [facility] ([facility]) [address] [place] [address] * (ABNORMAL) HEMOGLOBIN A1C (07/26/2024 1:10 PM HEAVY DUTY PRESS OPERATOR) Hemoglobin A1c 8.2(H) <5.7 % 07/26/2024 3:17 PM [facility] Estimated Average Glucose 189 mg/dL 07/26/2024 3:17 PM [facility] Blood BLOOD SPECIMEN / Unknown Venipuncture / Unknown 07/26/2024 1:10 PM HEAVY DUTY PRESS OPERATOR 07/26/2024 3:01 PM [facility] - 07/26/2024 3:17 PM [facility] HbA1c Interpretation: Normal: < 5.7% Pre-diabetes: [...] LAB - CHEMISTRY ORDERABLES Fin al Result [facility] [address] [place] [address] * (ABNORMAL) COMPREHENSIVE METABOLIC PANEL (07/24/2024 10:39 AM HEAVY DUTY PRESS OPERATOR) [facility] Glucose 275(H) 70 - 99 mg/dL 07/24/2024 11:03 AM [facility] Sodium 136 136 - 145 mmol/L 07/24/2024 11:03 AM [facility] Potassium 4.4 3.5 - 5.1 mmol/L 07/24/2024 11:03 AM [facility] Chloride 106 98 - 107 mmol/L 07/24/2024 11:03 AM [facility] CO2 21(L) 22 - 29 mmol/L 07/24/2024 11:03 AM [facility] Calcium 8.8 8.4 - 10.4 mg/dL 07/24/2024 11:03 AM [facility] Anion Gap 9 6 - 16 mmol/L 07/24/2024 11:03 AM [facility] BUN 14 5.3 - 18.7 mg/dL 07/24/2024 11:03 AM [facility] Creatinine 0.67 0.57 - 1.11 mg/dL 07/24/2024 11:03 AM [facility] Alkaline Phosphatase 55 40 - 150 U/L 07/24/2024 11:03 AM [facility] ALT 18 0 - 55 U/L 07/24/2024 11:03 AM [facility] AST 21 5 - 34 U/L 07/24/2024 11:03 AM [facility] Protein Total 7.1 6.4 - 8.3 gm/dL 07/24/2024 11:03 AM [facility] Albumin 3.3(L) 3.4 - 5.0 gm/dL 07/24/2024 11:03 AM [facility] Bilirubin Total 0.3 0.2 - 1.2 mg/dL 07/24/2024 11:03 AM [facility] eGFR by CKD-EPI >90 >=90 mL/min/1.7 3 m2 07/24/2024 11:03 AM [facility] Blood BLOOD SPECIMEN / Unknown Venipuncture / Unknown 07/24/2024 10:39 AM HEAVY DUTY PRESS OPERATOR 07/24/2024 10:48 AM [facility] Andrea SPANNGLUE MOUNTER OPERATOR LAB - CHEMISTRY ORDERA BLES Final Result [facility] [address] [place] [address] * (ABNORMAL) MICROALB/CREAT RATIO URINE RANDOM PANEL (02/02/2017 2:38 PM CDT) Creatinine Urine 103.98 mg/dL 02/03/20 17 4:18 PM CDT [facility] Microalbumin Urine 3.3(H) <1.7 mg/dL 02/02/2017 4:18 PM CDT [facility] Microalbumin/Crea tinine Ratio 32(H) <30 mg/g 02/02/2017 4:18 PM CDT [facility] Urine URINE SPECIMEN OBTAINED BY CLEAN CATCH PROCEDURE / Unknown Collection / Unknown 02/02/2017 2:38 PM CDT 02/02/2017 3:10 PM CDT us Deon Monteiro MD LAB - URINE CHEMISTRY ORDERABLES Final Result [facility] [address] [facility] [place] [address] from Last 3 Months or Most Recently Relevant to Health Maintenance Insurance [facility] SELF PAY NO INSURANCE Member Subscriber Plan / Payer (Ef fective for All Dates) Name:Chitra Arellano Member ID:Not on file Relation to Subscriber:Not on file Name:CHITRA ARELLANO Subscriber ID:Not on file (Home) Address: [address] [place] [id number] Payer ID:Not on file Group ID:Not on file Type:Self Pay Address: [place], [place] [address] Care Teams Furniture Repair Technician Relationship Specialty Start Date End Date Gerber Betts DO [address] [place] [id number] PCP - General Family Medicine Geriatric Medicine 07/18/24
[2025-03-22 08:02] LABS: Influenza A QL RT-PCR Negative (Negative); Influenza B QL RT-PCR Negative (Negative); RSV RNA, RT-PCR Negative (Negative); SARS-CoV-2 RNA PCR Negative (Negative)
[2025-03-22 08:10] LABS: BEDSIDEPREGUCG Negative (Negative)
[2025-03-22 08:53] VITALS: BP 138/89; PULSE 81; RESP 15; O2SAT 99
== END 2025-03-22 08:54 | disposition home or self-care (01) ==
PROVIDERS: Emergency Provider Emergency Medicine; PCP Student in an Organized Health Care Education/Training Program
DX: J11.1 Influenza due to unidentified influenza virus with other respiratory manifestations (principal); Z20.822 Contact with and (suspected) exposure to COVID-19; E11.43 Type 2 diabetes mellitus with diabetic autonomic (poly)neuropathy; F90.9 Attention-deficit hyperactivity disorder, unspecified type; F31.9 Bipolar disorder, unspecified; Z79.4 Long term (current) use of insulin; Z79.899 Other long term (current) drug therapy
CPT/HCPCS: 81025; 87637; 99283

== ENCOUNTER 2025-05-18 15:47 | Emergency (ER) | payer OTHER, SELFPAY ==
[2025-05-18 15:49] VITALS: BP 129/75; PULSE 120; RESP 20; TEMP 36.8; O2SAT 100
--- OUTSIDE RECORDS SUMMARY | 2025-05-18 16:07 | XMS_ITS | Clinical Summary ---
Author Organization [facility] Address [address] [place] [address] Care Team Providers Care Assistant Dean Name Role Phone JoshsteveGerber arnold Kg LOGAN Primary Care Provider + Source Comments [facility],non-owned Affiliates and Associated Physician Practices is amultiple site organization consisting of ambulatory clinics and hospital sitesin [place], [place], [place] and [place]. This disclosure is being madepursuant to the Care Everywhere program and may not contain all information available regarding this patient. Last updated 18.[facility] Allergies Active Allergy Reactions Criticality Noted Date [...] 36 mg/g (< 30) Jul 19, 2016 ([place], [place]): first morning voided urine microalbumin/creatinine: 23 ug/g (< 30) Apr 20, 2016 - spot urine microalbumin/creatinine: 36 mg/g (< 30) Jul 19, 2016 ([facility], [place], [place]): first morning voided urine microalbumin/creatinine: 23 ug/g (< 30) Last Assessment & Plan: ? Nonspecific vs early diabetic related microalbuminuria 1. Obtain first morning voided urine specimen for microalbumin/creatinine ratio (laboratory requisition given at the time of the office visit). 2. Expectant observation. 3. Return appointment in three months. Assessment & Plan (06/29/2016 12:53 PM HAT LINER): ? Nonspecific vs early diabetic related microalbuminuria 1. Obtain first morning voided urine specimen for microalbumin/creatinine ratio (laboratory requisition given at the time of the office visit). 2. Expectant observation. 3. Return appointment in three months. Controlled type 2 diabetes bisi garcia without complication, without long-term current use of insulin 04/21/2016 Overview (06/29/2016): Apr 15, 2016 - [facility], [address] [place] [address] Na 143 mmol/L, K 4.4 mmol/L, Cl [...] months. Assessment & Plan (06/29/2016 12:48 PM HAT LINER): Good glycemic control. 1. Metformin 1000 mg bid 2. Home glucose monitoring twice daily. 3. Daily physical exercise (60 minutes daily) to promote weight loss 4. Return appointment in three months. Assessment & Plan (04/21/2016 4:13 PM HAT LINER): New onset, probably type II, diabetes mellitus. [...] mg/dL (< 130) Jul 19, 2016 - [facility] Cholesterol 151 mg/dL (140-199), triglycerides 235 mg/dL (< 150), HDL- cholesterol 37 mg/dL (> 40), LDL-cholesterol 67 (< 130) cholesterol 261 mg/dL (100-170); triglyceride 925 mg/dL (140-199), HDL- cholesterol 41 mg/dL (< 150), LDL-cholesterol mg/dL (< 130) Jul 19, 2016 - [facility] Cholesterol 151 mg/dL (140-199), triglycerides 235 [...] sweets/fats Assessment & Plan (06/29/2016 12:45 PM HAT LINER): 1. Dietary counseling provided 2. Fasting lipid profile (laboratory requisition given at the time of the office visit). .3 Return appointment in three months. Assessment & Plan (04/21/2016 4:13 PM HAT LINER): ? Familial 1. Fasting lipid profile 2. [...] BURGOS) Assessment & Plan (06/29/2016 12:46 PM HAT LINER): ? Nonspecific elevation vs evolving BURGOS 1. Repeat serum ALT level (laboratory requisition given at the time of the office visit). 3. Expectant observation. 3. Return appointment in three months. Assessment & Plan (04/21/2016 4:14 PM HAT LINER): ? BURGOS 1. Repeat serum AST/ALT in one month. 2. Consider referral to Pediatric Gastroenterology Type 2 diabetes mellitus with polyneuropathy Overview (07/16/2024): Apr 15, 2016 - [facility], [address], [place], [place] [address] Na 143 mmol/L, K 4.4 mmol/L, Cl [...] loss 4. Return appointment in four months. Resolved Problems Problem Noted Date Diagnosed Date [...] medical care, and heating? Somewhat hard 07/16/2024 [facility] [place] of Occupat ional Health - Occupational Stress [...] things needed for daily living? No 07/16/2024 [place] Depression Scale Answer Date Recorded [place] Depression Scale Total 11 07/16/2024 The thought [...] in a [facility] (including now)? No 07/16/2024 Comments No Sex and Gender Information Value Date Recorded Sex Assigned at Not on file Legal Sex Female 6:36 AM HAT LINER Gender Identity Not on file Sexual Orientation Not on file Last Filed Vital Signs Vital Sign Reading Time Taken Comments Blood Pressure 131/74 09/06/2024 1:42 PM CDT Pulse 98 09/06/2024 1:42 PM CDT Temperature 36.7 C (98 F) 07/24/2024 10:06 AM HAT LINER Respiratory Rate 17 07/24/2024 10:06 AM HAT LINER Oxygen Saturation 99% 07/24/2024 10:06 AM HAT LINER Inhaled Oxygen Concentration - - Weight 87 kg (191 lb 12.8 oz) 09/06/2024 1:42 PM CDT Height 162.6 cm (5' 4) 07/18/2024 10:04 AM HAT LINER Body Mass Index 32.92 07/18/2024 10:04 AM HAT LINER Plan of Treatment Upcoming Encounters Date Type Department Care Team (Late st Contact Info) Description 09/12/2025 2:00 PM CDT Appointment [facility] MATERNAL/ EVALUATION UNIT [address] [place] [address] Health Maintenance Due Date Last Done Comments [...] DIABETES - URINE PROTEIN SCREENING 06/05/20242016, 04/20/2016 DIABETES-HGB A1C 01/23/2025 07/26/2024, , 06/28/2016, Additional history exists COVID-19 VACCINE (2 - 2024-2 6 season) 2025 08/14/2024 INFLUENZA VACCINE (#1) 2025 , 06/13/2023, 03/21/2019, [...] MENINGOCOCCAL GROUPS A/C/Y/W VACCINE Completed 01/17/2019, 12/03/2012 Procedures Procedure Name Priority Date/Time Associated Diagnosis Comments PAP IG LB RFLX HPV APTIMA ASCU Routine 09/06/2024 2:14 PM CDT Type 2 diabetes mellitus with polyneuropathy (HCC) HEMOGLOBIN A1C Routine 07/26/2024 1:10 PM HAT LINER Controlled type 2 diabetes mellitus without complication, without long-term current use of insulin COMPREHENSIVE METABOLIC PANEL STAT 07/24/2024 10:39 AM HAT LINER MICROALB/CREAT RATIO URINE RANDOM PANEL Routine 02/02/2017 2:38 PM CDT Controlled type 2 diabetes mellitus without complication, without long-term current use of insulin from Last 3 Months or Most Recently Relevant to Health Maintenance Results * PAP IG LB RFLX HPV APTIMA ASCU (09/06/2024 2:14 PM CDT) Diagnosis Comment 09/11/2024 11:10 AM CDT [facility] ([facility]) Comment: NEGATIVE FOR INTRAEPITHELIAL LESION OR MALIGNANCY. THIS SPECIMEN WAS RESCREENED PART OF OUR GUN STOCK MAKER PROGRAM. Specimen Adequacy Comment 025 11:10 AM CDT [facility] ([facility]) Comment: Satisfactory for evaluation. Endocervical and/or squamous metaplastic cells (endocervical component) are present. Performed by Comment 09/11/2024 11:10 AM CDT [facility] ([facility]) Comment:Riley Cancino, Cytot echnologist ([facility]) QC Reviewed by Comment 09/11/2024 11:10 AM CDT [facility] ([facility]) Comment:Luz Maria guajardo, Sas Clinical Programmer ([facility]) Comment . 09/11/2024 11:10 AM CDT [facility] ([facility]) Note Comment 09/11/2024 11:10 AM CDT [facility] ([facility]) Comment: The Pap smear is a screening test designed to aid in the detection of premalignant and malignant conditions of the uterine cervix. It is not a diagnostic procedure and should not be used as the sole means of detecting cervical cancer. Both false-positive and false-negative reports do occur. IGLBP CPT Code Automation Comment 09/11/2024 11:10 AM CDT [facility] ([facility]) Comment: This liquid based ThinPrep(R) pap test was screened with the use of an image guided system. Note Comment 09/11/2024 11:10 AM CDT [facility] ([facility]) Comment: The HPV DNA reflex criteria were not met with this specimen result therefore, no HPV testing was performed. Pathology/Cytolo gy ENTIRE ENDOCERVIX / Unknown Collection / Unknown 09/06/2024 2:14 PM CDT 09/06/2024 2:48 PM CDT Narrative [facility] ([facility]) - 09/11/2024 11:10 AM CDT Performed at: [address] [place] [id number] Chemical Compounder: Rebeka Vargas MD, Phone: [phone] Specimen Comment: No. of containers..01 ThinPrep Vial Jered Solis MD LAB - PATHOLOGY/CYTOLOGY ORDER ELIOT Final Result [facility] ([facility]) [address] [place] [address] * (ABNORMAL) HEMOGLOBIN A1C (07/26/2024 1:10 PM HAT LINER) Hemoglobin A1c 8.2(H) <5.7 % 07/26/2024 3:17 PM HAT LINER [facility] Estimated Average Glucose 189 mg/dL 07/26/2024 3:17 PM HAT LINER [facility] Blood BLOOD SPECIMEN / Unknown Venipuncture / Unknown 07/26/2024 1:10 PM HAT LINER 07/26/2024 3:01 PM HAT LINER Narrative [facility] - 07/26/2024 3:17 PM [facility] HbA1c Interpretation: Normal: < 5.7% Pre-diabetes: 5.7-6.4% [...] LAB - CHEMISTRY ORDERABLES Fin al Result [facility] [address] [place], [place] [id number] * (ABNORMAL) COMPREHENSIVE METABOLIC PANEL (07/24/2024 10:39 AM HAT LINER) Glucose 275(H) 70 - 99 mg/dL 07/24/2024 [...] Unknown Venipuncture / Unknown 07/24/2024 10:39 AM HAT LINER 07/24/2024 10:48 AM [facility] Yaquelindoreenluciana Rawls APNP-COLOR SPECIALIST LAB - CHEMISTRY ORDERA BLES Final Result Performing Organization Address City/State/[facility] Co de Phone Number [facility] [address] [place] [address] * (ABNORMAL) MICROALB/CREAT RATIO URINE RANDOM PANEL (02/02/2017 2:38 PM CDT) Pathologist [facility] Creatinine Urine 103.98 mg/dL 02/03/20 17 4:18 PM CDT [facility] Microalbumin Urine 3.3(H) <1.7 mg/dL 02/02/2017 4:18 PM [facility] Microalbumin/Crea tinine Ratio 32(H) <30 mg/g 02/02/2017 4:18 PM [facility] Urine URINE SPECIMEN OBTAINED BY CLEAN CATCH PROCEDURE / Unknown Collection / Unknown 02/02/2017 2:38 PM CDT 02/02/2017 3:10 PM CDT us Deon Monteiro MD LAB - URINE CHEMISTRY ORDERABLES Final Result [facility] [address] [place] [address] from Last 3 Months or Most Recently Relevant to Health Maintenance Insurance [facility] SELF PAY NO INSURANCE Member Subscriber Plan / Payer (Ef fective for All Dates) Name:Chitra Landeros Member ID:Not on file Relation to Subscriber:Not on file Name:EILEENCHITRA Subscriber ID:Not on file (Home) Address: [address] [place] [phone] Payer ID:Not on file Group ID:Not on file Type:Self Pay Address: [place], [place] [address] Care Teams Assistant Dean Relationship Specialty Start Date End Date Gerber Betts DO [address] [place] [phone] PCP - General Family Medicine Geriatric Medicine 07/18/24
--- OUTSIDE RECORDS SUMMARY | 2025-05-18 16:07 | XMS_ITS | Clinical Summary ---
Author Organization [facility] Address [address] [place] [address] Care Team Providers Care Supervisor [employer] Name Role Phone Gerber Betts Kg LOGAN [...] Uncontrolled type 2 diabetes mellitus with hyperglycemia ([facility] HHS/HCC) Take 2 tablets (1,000 mg total) by mouth daily with breakfast. 180 tablet 5 Active Continuous Glucose Senior Windows Systems Engineer (FREESTYLE JEANIE 3 READER) DeviceIndications: Uncontrolled type 2 diabetes mellitus with hyperglycemia ([facility] HHS/HCC) Check blood sugar three times daily and as needed 1 each 5 Active Continuous Glucose Sensor (FREESTYLE JEANIE 3 SENSOR) MiscIndications:Un controlled type 2 diabetes mellitus with hyperglycemia ([facility] HHS/HCC) Check blood sugar three times [...] 36 mg/g (< 30) Jul 19, 2016 ([place], [place]): first morning voided urine microalbumin/creatinine: 23 ug/g (< 30) Last Assessment & Plan: ? Nonspecific vs early diabetic related microalbuminuria 1. Obtain first morning voided urine specimen for microalbumin/creatinine ratio (laboratory requisition given at the time of the office visit). 2. Expectant observation. 3. Return appointment in three months. Type 2 diabetes mellitus with polyneuropathy Overview (06/13/2023): Apr 15, 2016 - [facility], [address] [place] [id number] Na 143 mmol/L, K 4.4 mmol/L, Cl [...] Encounters Date Type Department Care Team Description 04/13/2025 Scan MG Postachio INFO SRVCS Scanned, Doc [facility] Lab (SCAN) 03/22/2025 Scan MG HEALTH INFO SRVCS Scanned, Doc Med Group 03/15/2025 Scan MG HEALTH INFO SRVCS Scanned, [...] Date Last Done Comments Annual Physical 2003 Meningococcal B Vaccine (2 of 2 - Bexsero SCDM 2-dose series) 07/20/2019 01/17/2019 COVID-19 Vaccine (2 - season) 2025 08/14/2024 Hemoglobin A1C 02/19/2025 11/19/2024, 05/0 10/2024, 07/26/2024, Additional history exists Influenza Adult (#1) 2025 08/14/2024, 06/13/2023, 03/21/2019, Additional history exists RSV Immunization or 60+ Years (1 - Risk 1-dose series) 05/16/2025 Diabetes: Retinopathy Eye Exam 08/27/2025 08/28/2023 Kidney Health Evaluation 10/07/2025 10/07/2024 Lipid Panel 10/07/2025 10/07/2024, 05/0 10/2024, 02/02/2017 Cervical Cancer Screening Pap Smear [...] Completed 08/14/2023, 01/18/2001, 2000, Additional history exists Hepatitis C Completed 10/07/2024 PHQ-2 (Physician Belford) Completed 10/07/2024 Pneumococcal Vaccine: Pediatrics (0 to 5 Years) and At-Risk Patients (6 to 49 Years) Completed 10/07/2024, 07/30/2001, 2000, Additional history exists RSV Immunizations Under 20 Months Aged Out No longer eligible based on patient's age to complete this topic Procedures Procedure Name Priority Date/Time Associated Diagnosis Comments OUTSIDE LAB (SCAN ORDER) 04/13/2025 OUTSIDE LAB (SCAN ORDER) 03/15/2025 OUTSIDE LAB (SCAN ORDER) 03/15/2025 OUTSIDE LAB (SCAN ORDER) 03/15/2025 OUTSIDE LAB (SCAN ORDER) 03/15/2025 OUTSIDE LAB (SCAN ORDER) 03/15/2025 HEMOGLOBIN, GLYCOSYLATED Routine 11/19/2024 Uncontrolled type 2 diabetes mellitus with hyperglycemia ([facility]/HCC [facility]) HEPATITIS C ANTIBODY Routine 10/07/2024 3:25 PM CDT Need for hepatitis C screening test LIPID PANEL Routine 10/07/2024 3:25 PM CDT Annual physical exam Screening for lipid disorders Screening for endocrine, metabolic and immunity disorder DIABETIC RETINOPATHY EXAM (NEGATIVE)(SCAN ORDER) Routine 08/28/2023 from Last 3 Months or Most Recently Relevant to Health Maintenance Results * OUTSIDE LAB (SCAN ORDER) (04/13/2025) Only the most recent of6 resultswithin the time period is included. 04/13/2025 us [facility] Scanned SCANNING Final Resu lt * HEMOGLOBIN, GLYCOSYLATED (11/19/2024) HGB A1C 9.9 % [facility] 11/19/2024 us Gerber Betts DO LABORATORY Final Re sult [facility] [address] [place] [address], * (ABNORMAL) LIPID PANEL (10/07/2024 3:25 PM CDT) CHOLESTEROL 259(H) <200 MG/DL 10/07/2024 7:20 PM CDT [facility] TRIGLYCERIDES 402(H) <150 MG/DL 10/07/2024 7:20 PM CDT [facility] HDL 45 >40 MG/DL 10/07/2024 7:20 PM CDT [facility] [place] LDL-C TRIGLYCERIDES >400 MG/DL, SEE DIRECT LDL REPORT <100 MG/DL 10/07/2024 7:20 PM CDT [facility] [place] VLDL CALCULATION UNABLE TO CALCULATE 5 - 28 MG/DL 10/07/2024 7:20 PM CDT [facility] [place] CHOL/HDL RATIO 5.8(H) 0.0 - 4.0 10/07/2024 7:20 PM CDT [facility] LDL/HDL UNABLE TO CALCULATE 0.41 - 2.13 10/07/2024 7:20 PM CDT [facility] NON HDL CHOLESTEROL 214(H) <140 MG/DL 10/07/2024 7:20 PM CDT [facility] 10/07/2024 3:25 PM CDT Gerber Betts DO LABORATORY Final Re sult Performing Organization Address [facility] de Phone Number [facility] [address] [place] [address], [place] [phone] * HEPATITIS C ANTIBODY (10/07/2024 3:25 PM CDT) HEPATITIS C AB NON-REACTI VE NON-REACT ALICJA 10/07/2024 10:04 PM CDT [facility] Comment: ANTIBODIES TO HCV NOT DETECTED. DOES NOT EXCLUDE THE POSSIBILITY OF EXPOSURE TO HCV. 10/07/2024 3:25 PM CDT Gerber Betts DO LABORATORY Final Re sult Performing Organization Address [facility] de Phone Number [facility] [address] [place] [address], [place] [phone] * DIABETIC RETINOPATHY EXAM (NEGATIVE) (08/28/2023) [facility] Scanned SCANNING Final Resu lt Performing Organization Address [facility] Co de Phone Number [facility] from Last 3 Months or Most Recently Relevant to Health Maintenance Insurance [employer] Care Teams Supervisor [employer] Relationship Specialty Start Date End Date Gerber Betts DO [address] [place] [id number] PCP - General FAMILY PRACTICE 06/13/23
[2025-05-18] MEDS: SODIUM CHLORIDE 0.9% IV 1,000 ML 999 ML IV CONT (16:11)
[2025-05-18 16:18] LABS: Hematocrit 45.4 % (37.0-47.0); Hemoglobin 15.2 g/dL (12.0-15.0); Mean Corpuscular HGB Conc 33.5 g/dl (32-36); Mean Corpuscular Hemoglobin 26.4 pg (26-34); Mean Corpuscular Volume 78.8 fl (80-100); Platelet Count Result 254 k/mm3 (150-375); Red Blood Count 5.76 M/mm3 (4.2-5.4); White Blood Count 10.0 K/mm3 (4.5-10.0)
[2025-05-18 16:19] LABS: Immature Granulocyte Percent A 0.2 % (0-0.5); Lymphocytes Absolute Auto 0.81 K/mm3 (0.9-3.2); Nucleated Red Blood Cells Absolute Auto 0.000 K/mm3 (0.0-0.012); Nucleated Red Blood Cells Perc 0.0 % (0.0-0.2)
[2025-05-18] MEDS: METOCLOPRAMIDE HCL INJ 10 MG/2 ML VIAL 5 MG IV PUSH (16:32)
[2025-05-18 16:33] VITALS: BP 131/88; PULSE 114; RESP 13; O2SAT 100
[2025-05-18 16:37] LABS: BEDSIDEPREGUCG Negative (Negative)
[2025-05-18 16:41] LABS: Add Urine Microscopic? YES; Appearance Urine Clear (Clear); Glucose Urine UA 2+ mg/dL (Negative); Leukocyte Esterase Ur 1+ LEU/UL (Negative); Nitrate Urine Negative (Negative); Non Pathogenic Casts 0-2; Specific Grav Ur 1.030 (1.001-1.035)
[2025-05-18 16:51] LABS: Alanine Aminotransferase 55 U/L (6-35); Albumin Level 4.8 g/dL (3.5-5.1); Alkaline Phosphatase 76 U/L (38-126); Anion Gap 11 mmol/L (4-12); Aspartate Amino Transferase 42 U/L (14-36); Bilirubin,Total 1.1 mg/dL (0.2-1.3); Blood Urea Nitrogen 14 mg/dL (7-17); Calcium 9.1 mg/dL (8.4-10.2); Carbon Dioxide 24 mmol/L (22-30); Chloride 99 mmol/L (98-107); Estimated CRCL calculation 165 ml/min; Estimated Glomerular Filt Rate > 60; Glucose 253 mg/dL (65-110); Potassium 4.2 mmol/L (3.4-5.0); Sodium 134 mmol/L (137-145); Total Protein 8.7 g/dL (6.3-8.2)
[2025-05-18 17:07] LABS: Beta HCG Quantitative < 2.39 mIU/ML
--- NOTE | 2025-05-18 17:39 | ED.NAVMDI ---
HPI - Nausea/Vomiting/Diarrhea General Chief complaint: Nausea/Vomiting/Diarrhea Stated complaint: NV, pos Time Seen by Provider: 05/18/25 15:55 Source: patient Mode of arrival: ambulatory Limitations: no limitations History of Present Illness HPI Narrative: 25-year-old with a history of diabetes insulin requiring, bipolar disorder, ADHD here with a complains of nausea, vomiting, lower abdominal pain associated with some back pain since this morning. Patient states that she did home test few days ago and was positive . She denies any vaginal bleeding or discharge. MD elicited complaint: nausea and vomiting Onset (ago): day(s) (1) Description of vomiting: watery Description of diarrhea: watery Associated nausea: Yes Associated abdominal pain: Yes Location of pain: suprapubic Radiation: other (Lower back) Pain consistency: constant Severity: moderate Quality: cramping Exacerbating factors: none Relieving factors: none Related Data Home Medications ?Medication ?Instructions ?Recorded ?Confirmed ?Last Taken ?Type aripiprazole 10 mg tablet 10 mg PO DAILY 03/05/23 12/05/24 12/04/24 History clonidine HCl 0.2 mg tablet 0.2 mg PO HS 03/05/23 12/05/24 12/04/24 History gabapentin 100 mg capsule 100 mg PO TID 03/05/23 12/05/24 12/04/24 History insulin detemir U-100 100 unit/mL 10 unit subcut BID 03/05/23 12/04/24 1 Day Ago History (3 mL) subcutaneous pen ~03/04/23 amoxicillin 500 mg capsule 500 mg PO BID 12/04/24 12/05/24 12/04/24 History Allergies Allergy/AdvReac Type Severity Reaction Status Date / Time morphine Allergy Hives Verified 05/18/25 15:48 Review of Systems Review of Systems: All systems reviewed & are unremarkable except as noted in HPI and below Constitutional: Constitutional: Reports no additional constitutional complaints Eyes: Eyes: Reports no additional eye complaints ENT: Reports system reviewed and no additional complaints, except as documented Cardiovascular: Cardiovascular: Reports no additional cardiovascular complaints Respiratory: Respiratory: Reports no additional respiratory complaints Gastrointestinal: Gastrointestinal: Reports as per HPI Musculoskeletal: Musculoskeletal: Reports back pain PMFSH Past Medical History Medical History Chlamydia Treated (approx 2020) Hidradenitis suppurativa of left axilla ADHD (attention deficit hyperactivity disorder) Bipolar disorder Diabetic peripheral neuropathy ROSIE (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) Surgical History Surgical History No pertinent past surgical history Family History Family History Father Bipolar disorder Schizophrenia Heart failure Mother Age: 37 Schizophrenia Diabetes mellitus Hypertension Bipolar disorder COPD (chronic obstructive pulmonary disease) Chronic kidney disease Social History Social History Social History: She has been involved with her boyfriend for the last 2 years. She has lived with her boyfriend and his family for the last year. 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 She reports that she drinks 5-6 alcoholic beverages every couple of months. Code status: Full code Smoking status: Never smoker Alcohol intake: current Drinks per week: 3 Substance use: former Substance use type: marijuana Last use: 2019 Lack of Transportation: No Lack of Food: Never True Current Housing: I Have Housing Concerned About Future Housing: No Difficulty Paying Gas/Electric Bills: No Difficulty Paying for Meds: No Currently Unemployed: No Education: High School Diploma/GED Difficulty w/ Childcare or Family Care: No Living arrangements: with family Spiritual care concerns: No Exam Narrative: GENERAL: Well-appearing, well-nourished, and in no acute distress. HEAD: Normocephalic, atraumatic. EYES: PERRLA and EOMI. ENT: Nares clear, no rhinorrhea or epistaxis. Mucous membranes moist. NECK: Supple. CHEST: Clear to auscultation. No respiratory distress. HEART: Regular rate and rhythm. No murmur heard. Normal peripheral pulses. ABDOMEN: Soft, nontender, nondistended, normal active bowel sounds. EXTREMITIES: Normal range of motion. No edema. SKIN: Warm, dry, no rash. NEURO: No focal deficits. Alert and oriented x3. PSYCH: Normal mood and affect. Course Course Emergency Course: Patient had no further episodes of nausea or vomiting while she is here in the ER she did give IV he fluids and IV Reglan. I did inform her and about her lab work. Recommended her to follow up with the primary doctor Vital Signs Vital signs: Vital Signs Temperature 36.8 C 05/18/25 15:49 Pulse Rate 120 H 05/18/25 15:49 Respiratory Rate 20 05/18/25 15:49 Blood Pressure 129/75 05/18/25 15:49 Pulse Oximetry 100 05/18/25 15:49 Oxygen Delivery Room Air 05/18/25 15:49 Temperature 36.8 C 05/18/25 15:49 Pulse Rate 114 H 05/18/25 16:33 Respiratory Rate 13 05/18/25 16:33 Blood Pressure 131/88 05/18/25 16:33 Pulse Oximetry 100 05/18/25 16:33 Oxygen Delivery Room Air 05/18/25 15:49 MDM MDM Narrative Medical decision making narrative: 25-year-old with a history of diabetes, bipolar disorder with positive home test here with nausea and vomiting and low back pain. A do lab work including BT his CT start IV fluids and IV Reglan for nausea. Differential Diagnosis Differential Diagnosis: Gastroenteritis, hyperemesis gravidarum Medical Records I have reviewed the following patient records and this information was taken into consideration when formulating the assessment and plan.: previous labs and previous ER visits Lab Data MDM Lab Attestation statement: I personally reviewed the patient's lab results. 05/18/25 16:14 05/18/25 16:14 Labs: Lab Results 05/18/25 05/18/25 05/18/25 Range/Units 16:14 16:31 16:35 WBC 10.0 (4.5-10.0) K/mm3 RBC 5.76 H (4.2-5.4) M/mm3 Hgb 15.2 H (12.0-15.0) g/dL Hct 45.4 (37.0-47.0) % MCV 78.8 L (80-100) fl MCH 26.4 (26-34) pg MCHC 33.5 (32-36) g/dl RDW 13.5 (11.5-14.5) % Plt Count 254 (150-375) k/mm3 MPV 10.7 H (7.4-10.4) fl Immature Gran % (Auto) 0.2 (0-0.5) % Neut % (Auto) 83.9 H (45.5-73.1) % Lymph % (Auto) 8.1 L (18.3-44.2) % [place] % (Auto) 6.5 (2.6-8.5) % Eos % (Auto) 1.0 (0-4.4) % Baso % (Auto) 0.3 (0.2-1.2) % Lymph # (Auto) 0.81 L (0.9-3.2) K/mm3 [place] # (Auto) 0.7 H (0.1-0.6) K/mm3 Eos # (Auto) 0.1 (0-0.3) K/mm3 Baso # (Auto) 0.0 (0.0-0.1) K/mm3 Abs Immat Gran (auto) 0.02 (0.00-0.031) K/mm3 Absolute Neuts (auto) 8.4 H (1.3-6.7) K/mm3 Absolute Nucleated RBC 0.000 (0.0-0.012) K/mm3 Nucleated RBC % 0.0 (0.0-0.2) % Sodium 134 L (137-145) mmol/L Potassium 4.2 (3.4-5.0) mmol/L Chloride 99 (98-107) mmol/L Carbon Dioxide 24 (22-30) mmol/L Anion Gap 11 (4-12) mmol/L BUN 14 (7-17) mg/dL Creatinine 0.46 L (0.7-1.0) mg/dL Estim Creat Clear Calc 165 ml/min Estimated GFR > 60 (59 - ) Glucose 253 H (65-110) mg/dL Calcium 9.1 (8.4-10.2) mg/dL Total Bilirubin 1.1 (0.2-1.3) mg/dL AST 42 H (14-36) U/L ALT 55 H (6-35) U/L Alkaline Phosphatase 76 (38-126) U/L Total Protein 8.7 H (6.3-8.2) g/dL Albumin 4.8 (3.5-5.1) g/dL Beta HCG, Quant < 2.39 mIU/ML Urine Color Yellow (Yellow) Urine Appearance Clear (Clear) Urine pH 5.5 (5.0-9.0) Ur Specific [place] 1.030 (1.001-1.035) Urine Protein 1+ H (Negative) mg/dL Urine Glucose (UA) 2+ H (Negative) mg/dL Urine Ketones 1+ H (Negative) mg/dL Ur Blood (Man) Negative (Negative) Urine Nitrate Negative (Negative) Urine Bilirubin Negative (Negative) Urine Urobilinogen 1.0 (<2.0) mg/dL Leukocyte Esterase Rfl 1+ H (Negative) CARLOS/UL Urine RBC 0-2 (0-2) /hpf Urine WBC 11-20 H (0-3) /hpf Ur Squamous Epith Cells Moderate (Few) /hpf Urine Bacteria 1+ H /hpf Urine Casts 0-2 POC Urine HCG, Qual Negative (Negative) Discharge Plan Discharge Clinical Impression: Gastroenteritis Patient Disposition: Home Condition: Stable Instructions: Acute Nausea and Vomiting (ED) Patient Language: Azerbaijani Prescriptions: New ondansetron 4 mg tablet,disintegrating 4 mg PO Q6-8H PRN (Reason: nausea and vomiting) Qty: 14 0RF No Action amoxicillin 500 mg capsule 500 mg PO BID Rx Instructions: With food. hydrocodone-acetaminophen 5-325 mg tablet 1 tablet PO Q4H PRN (Reason: pain) Qty: 14 0RF doxycycline hyclate 100 mg capsule 100 mg PO BID Qty: 14 0RF sulfamethoxazole-trimethoprim [Bactrim DS] 800-160 mg tablet 1 tablet PO Q12H 7 Days Qty: 14 0RF clonidine HCl 0.2 mg tablet 0.2 mg PO HS gabapentin 100 mg capsule 100 mg PO TID aripiprazole 10 mg tablet 10 mg PO DAILY insulin detemir U-100 100 unit/mL (3 mL) insulin pen 10 unit SUBCUT BID ondansetron 4 mg tablet,disintegrating 4 mg PO Q8H PRN (Reason: nausea and vomiting) Qty: 15 0RF Follow-up/Referrals: Alpesh,DO Gerber [Primary Care Provider] Time of Disposition: 17:44
== END 2025-05-18 17:57 | disposition home or self-care (01) ==
PROVIDERS: Emergency Provider Family Medicine; PCP Student in an Organized Health Care Education/Training Program
DX: K52.9 Noninfective gastroenteritis and colitis, unspecified (principal); E11.42 Type 2 diabetes mellitus with diabetic polyneuropathy; F90.9 Attention-deficit hyperactivity disorder, unspecified type; F31.9 Bipolar disorder, unspecified; Z79.4 Long term (current) use of insulin; Z79.899 Other long term (current) drug therapy
CPT/HCPCS: 36415; 80053; 81001; 81025; 84702; 85025; 96361; 96374; 99284; J2765; J7030